=== PATIENT | male | born 1955 | race Caucasian/White ===

== ENCOUNTER → 2018-05-19 01:42 | Outpatient (CLI) | payer MEDICARE, SELFPAY ==
[2018-05-19 11:13] LABS: Hemoglobin A1C 8.6 % (4.5-6.2)
[2018-05-19 11:19] LABS: ALT 32 U/L (12-78); AST 22 U/L (15-37); Albumin 3.6 g/dL (3.4-5.0); Alkaline Phosphatase 127 U/L (46-116); Anion Gap 7.5 mmol/L (3-11); BUN 40 mg/dL (7-18); Bilirubin, Total 0.5 mg/dL (0.2-1.0); CO2 26.5 mmol/L (21.0-32.0); CREATININE 1.57 mg/dL (0.70-1.30); Chloride 103 mmol/L (98-107); Cholesterol 113 mg/dL (50-200); Estimated GFR 44.99 (mL/min/1.73m2); Glucose 138 mg/dL (70-100); HDL Cholesterol 43 mg/dL (40-60); LDL CHOLESTEROL 59 mg/dL (<100); Potassium 4.7 mmol/L (3.5-5.1); Sodium 137 mmol/L (136-145); Total Protein 6.7 g/dL (6.4-8.2); Triglyceride 73 mg/dL (30-150)
[2018-05-19 11:54] LABS: COMMENT (LAB VIEW ONLY) 81.27 mg/dL; Microalb ug/mg Crea 260.7 ug/mg Cr
== END ==
PROVIDERS: PCP Family Medicine; Visit Provider Family Medicine
DX: E11.49 Type 2 diabetes mellitus with other diabetic neurological complication (principal); E78.5 Hyperlipidemia, unspecified; I10 Essential (primary) hypertension; E87.5 Hyperkalemia
CPT/HCPCS: 36415; 80053; 80061; 83721; 82043; 82570; 83036

== ENCOUNTER → 2018-08-11 09:37 | Outpatient (BNVA) | payer MEDICARE, SELFPAY | PROVIDERS: PCP Family Medicine; Visit Provider Student in an Organized Health Care Education/Training Program | DX: I25.810 Atherosclerosis of coronary artery bypass graft(s) without angina pectoris (principal); I10 Essential (primary) hypertension; E11.9 Type 2 diabetes mellitus without complications; Z95.818 Presence of other cardiac implants and grafts | CPT/HCPCS: 99213 ==

== ENCOUNTER 2018-12-21 07:12 | Outpatient (CLI) | payer MEDICARE, SELFPAY ==
[2018-12-21 11:37] LABS: BUN 30 mg/dL (7-18); CREATININE 1.33 mg/dL (0.70-1.30); Calcium 9.2 mg/dL (8.5-10.1); Chloride 105 mmol/L (98-107); Estimated GFR 54.48 (mL/min/1.73m2); Glucose 53 mg/dL (70-100); Potassium 4.1 mmol/L (3.5-5.1); Sodium 143 mmol/L (136-145)
== END 2018-12-21 07:32 ==
PROVIDERS: PCP Family Medicine; Visit Provider Family Medicine
DX: E11.8 Type 2 diabetes mellitus with unspecified complications (principal); I10 Essential (primary) hypertension; Z79.4 Long term (current) use of insulin
CPT/HCPCS: 36415; 80048; 82043; 82570; 83036

== ENCOUNTER 2018-12-22 08:44 | Outpatient (REF) | payer MEDICARE, SELFPAY ==
[2018-12-22 12:07] LABS: COMMENT (LAB VIEW ONLY) 70.68 mg/dL; Microalb ug/mg Crea 697.5 ug/mg Cr
== END 2018-12-22 09:04 ==
LOC: LBN 08:44
PROVIDERS: PCP Family Medicine; Visit Provider Family Medicine
DX: E11.9 Type 2 diabetes mellitus without complications (principal)
CPT/HCPCS: 82043; 82570

== ENCOUNTER 2019-05-15 16:00 | Observation (INO) | payer MEDICARE, SELFPAY ==
[2019-05-15] VITALS (45 sets, daily range): BP systolic 159–204; BP diastolic 81–108; PULSE 62–87; RESP 9–24; TEMP 36.6–36.8; O2SAT 93–98
--- NOTE | 2019-05-15 16:25 | DI.RAD_ITS ---
SYMPTOM/DIAGNOSIS: SHORTNESS OF BREATH. PA AND LATERAL CHEST: 05/15 Note is made of prior sternotomy. Cardiac size is within normal limits. Lungs are clear. No pleural effusion. CONCLUSION: No evidence of acute disease.
[2019-05-15 16:41] LABS: Abs Immature Grans 0.01 k/cumm (0.0-0.09); Absolute Basophil Count 0.02 k/cumm (0.0-0.2); Absolute Eosinophil Count 0.26 k/cumm (0.0-0.7); Absolute Lymphocyte Count 1.34 k/cumm (1.2-3.4); Absolute Monocyte Count 0.88 k/cumm (0.11-0.7); Absolute Neutrophil Count 7.67 k/cumm (1.2-6.7); Basophils % 0.2; Eosinophils % 2.6; HCT 40.5 % (40.0-50.0); HGB 14.6 g/dL (13.5-17.5); Immature Grans % 0.1; Lymphocytes % 13.2; Mean Corpuscular Hemoglobin 29.6 pg (27.0-33.0); Mean Corpuscular Volume 82.2 fL (80-95); Mean Platelet Volume 11.6 fL (8.0-11.0); Monocytes % 8.6; Neutrophils % 75.3; Platelet Count 177 x1000/uL (130-400); RBC 4.93 m/cumm (4.50-6.00); RBC Distribution Width 13.6 % (11.8-14.1); White Blood Cell Count 10.18 k/cumm (4.4-10.8)
[2019-05-15] MEDS: Furosemide 40 MG/4 ML VIAL IVP (16:55)
[2019-05-15 17:03] LABS: ALT 24 U/L (12-78); AST 13 U/L (15-37); Alkaline Phosphatase 108 U/L (46-116); BUN 23 mg/dL (7-18); Bilirubin, Total 0.7 mg/dL (0.2-1.0); Calcium 10.1 mg/dL (8.5-10.1); Chloride 96 mmol/L (98-107); Estimated GFR 55.75 (mL/min/1.73m2); Glucose 249 mg/dL (70-100); Magnesium 1.4 mg/dL (1.8-2.4); NT-proBNP 1156 pg/mL; Potassium 4.3 mmol/L (3.5-5.1); Sodium 134 mmol/L (136-145); Troponin I < 0.05 ng/mL (0.00-0.06)
[2019-05-15 17:16] LABS: D-Dimer 832 ng/mlFEU (<500)
--- NOTE | 2019-05-15 17:32 | DI.CT_ITS ---
SYMPTOM/DIAGNOSIS: ABDOMINAL PAIN AND BLOATING CT ANGIOGRAPHY CHEST, ABDOMEN AND PELVIS: 05/15 CT angiography was performed with multi slice acquisition and multi planar and 3D reconstruction. CT angiography of the chest, abdomen and pelvis was performed with a bolus infusion of 100 cc Omnipaque 350. Note is made of a prior sternotomy and there are coronary artery stents and/or calcifications. Thoracic aorta is of normal diameter with no evidence of dissection. No evidence of pulmonary embolic disease. Calcified pulmonary nodules are noted bilaterally consistent with healed granulomatous disease. The lungs are otherwise clear. No pleural effusion. No mediastinal or hilar adenopathy. Tracheobronchial tree appears intact. Abdominal aorta is of normal diameter. No dissection. Less than 50% luminal diameter SMA origin. Divided origin of the celiac trunk. No significant stenosis. Renal arteries show minimal calcified atheromatous plaque. Calcified atheromatous plaque present in common internal and external iliac arteries bilaterally with no stenosis in excess of 50%. Liver, spleen and pancreas appear normal. There is cholelithiasis without evident biliary dilatation. Appendix is normal. No evidence of diverticulitis or bowel obstruction. No significant abdominal or pelvic adenopathy, Adrenals and kidneys are unremarkable. No urinary tract calcification or obstruction. CONCLUSION: 1. No evidence of pulmonary embolic disease. 2. Extensive atherosclerosis with no stenosis in excess of 50% in the visualized thoracic and abdominal vessels. 3. Cholelithiasis
[2019-05-15] MEDS: Magnesium Oxide 400 MG TAB PO (17:34)
[2019-05-15] MEDS: Omnipaque 350 MG/ML 100 ML BTL IJ (18:27)
--- NOTE | 2019-05-15 18:44 | NUR.NOTE ---
Nursing Note:pt voided x 2 since lasix administration
--- NOTE | 2019-05-15 19:11 | DI.VRAD_ITS ---
EXAM: CT Angiography Chest With Contrast EXAM DATE/TIME: 05/15/2019 5:49 PM CLINICAL HISTORY: 64 years old, male; Shortness of breath; Patient HX: Pain and bloating TECHNIQUE: Imaging protocol: Axial computed tomographic angiography images of the chest with intravenous contrast using CT angiography protocol. Coronal and sagittal reformatted images were created and reviewed. 3D rendering: MIP reconstructed images were created and reviewed. COMPARISON: CT CHEST FOR PULMONARY EMBOLUS 01/11/2018 3:20 PM FINDINGS: Pulmonary arteries: Normal. No pulmonary emboli. Great vessels off aortic arch: Up to 10% stenosis of the origin of the right subclavian artery. Aorta: Mild Aortic and extensive coronary atherosclerosis. Bovine anatomy of the aortic arch. Lungs: Unremarkable. No consolidation. No masses. Pleural space: Unremarkable. No pneumothorax. No pleural effusion. Heart: Unremarkable. No cardiomegaly. No pericardial effusion. Lymph nodes: Unremarkable. No enlarged lymph nodes. Bones/joints: Sternotomy. Mild degenerative changes in the spine. Soft tissues: Unremarkable. IMPRESSION: 1. Mild Aortic and extensive coronary atherosclerosis. 2. Bovine anatomy of the aortic arch. 3. Up to 10% stenosis of the origin of the right subclavian artery. 4. No pulmonary embolism EXAM: CT Angiography Abdomen With Contrast EXAM DATE/TIME: 05/15/2019 5:49 PM CLINICAL HISTORY: 64 years old, male; Shortness of breath; Patient HX: Pain and bloating TECHNIQUE: Imaging protocol: Axial computed tomographic angiography images of the abdomen with intravenous contrast material. Coronal and sagittal reformatted images were created and reviewed. 3D rendering: MIP reconstructed images were created and reviewed. COMPARISON: CT CHEST FOR PULMONARY EMBOLUS 01/11/2018 3:20 PM FINDINGS: VASCULATURE: Aorta: No aortic aneurysm or dissection. Celiac trunk and mesenteric arteries: Up to 50% stenosis at the origin of the superior mesenteric artery. The hepatic artery and splenic artery originate directly from the aorta. Up to 10% stenosis in each of these vessels at their origin. Up to 20% stenosis in the proximal portion of the inferior mesenteric artery. Renal arteries: 2 right renal arteries identified with no stenosis at their origins. Right iliac arteries: Up to 20% stenosis in the proximal right common iliac artery. Up to 10% stenosis in the right internal iliac artery. Up to 10% stenosis in the right external iliac artery. Right femoral/popliteal arteries: Up to 10% stenosis in the right common femoral artery. Up to 20% stenosis in the visualized right deep femoral artery. Left iliac arteries: Up to 10% stenosis in the left internal iliac artery. Up to 10% stenosis in the left external iliac artery. Left femoral/popliteal arteries: Up to 10% stenosis in the left common femoral artery. Up to 20% stenosis in the visualized left deep femoral artery. Other veins: Retroaortic left renal vein. ABDOMEN: Liver: Normal. No mass. Gallbladder and bile ducts: Gallstones without evidence of acute cholecystitis. Pancreas: Normal. No ductal dilation. Spleen: Splenule. Spleen is not enlarged. No splenic masses. Adrenals: Normal. No mass. Kidneys and ureters: Normal. No hydronephrosis. Stomach and bowel: Unremarkable. No obstruction. No mucosal thickening. Intraperitoneal space: Unremarkable. No free air. No significant fluid collection. Bones/joints: Degenerative changes in the spine. Soft tissues: Bilateral inguinal hernias containing fat, uncomplicated. Lymph nodes: Unremarkable. No enlarged lymph nodes. IMPRESSION: 1. Up to 50% stenosis at the origin of the superior mesenteric artery. 2. The hepatic artery and splenic artery originate directly from the aorta. Up to 10% stenosis in each of these vessels at their origin. 3. 2 right renal arteries identified with no stenosis at their origins. 4. Up to 20% stenosis in the proximal portion of the inferior mesenteric artery. 5. No aortic aneurysm or dissection. 6. Up to 20% stenosis in the proximal right common iliac artery. 7. Up to 10% stenosis in the right internal iliac artery. 8. Up to 10% stenosis in the left internal iliac artery. 9. Up to 10% stenosis in the right external iliac artery. 10. Up to 10% stenosis in the left external iliac artery. 11. Up to 10% stenosis in the right common femoral artery. 12. Up to 10% stenosis in the left common femoral artery. 13. Up to 20% stenosis in the visualized right deep femoral artery. 14. Up to 20% stenosis in the visualized left deep femoral artery. A Dictated and Authenticated by: Chris Espinoza MD. Ordering:PANDA Middleton MD
--- NOTE | 2019-05-15 19:53 | ED.GENADUL_ITS ---
Discharge Plan Disposition Patient Disposition: [facility] INPATIENT Condition: Stable Discharge Details Chief Complaint: SOB Clinical Impression: Dyspnea Admit Date/Time: 05/15/19 21:22 Admit Provider: Bert Martinez Attending Provider: Bert Martinez Primary Care Provider: Anya Workman ED Provider: Kane Rowland Discharge Instructions Activity:: OOB to chair Equipment/Supplies:: No Equipment Needed Diet:: Carb Counting Discharge Orders Discharge Orders: Discharge Order (Routine); Ordered 05/16/19 Ordered By: Guevara Campbell Discharge Data Discharge Date/Time-TO BE ENTERED AT DEPARTURE: 05/15/19 22:27 Medical Decision Making Patient presenting to the emergency department for chief complaint of shortness of breath while on a trip where he drove to [place]. He was seen in the emergency department had very thorough and appropriate work-up and was found to have volume overload. Patient was placed on Lasix and reports that this helped for the first 2 days but since he has had significant dyspnea on exertion, and significant dyspnea when lying flat. This is caused him to have to sleep in a chair due to significant discomfort. Patient has medical history of diabetes, TIA, bypass surgery hypertension. Physical exam shows no pedal edema, clear lung sounds, normal cardiac exam, no JVD. Plan to check labs, EKG, and chest x- ray. Given the patient already had CTA in [place] but continues to claim symptoms plan to repeat d-dimer for concern of possible PE. Pending results patient given 40 mg IV Lasix EKG reviewed with attending physician and shows rate of 64, right bundle branch, no STEMI, no acute change compared to EKG dated 04/10/2018 Review of labs show a negative initial troponin, unremarkable CBC, CMP with decreased sodium and chloride and increase renal function, elevated d-dimer, negative chest x-ray. Given elevated d-dimer and patient's symptoms which she also does state some abdominal discomfort and bloating plan to do CTA of both the chest and abdomen pelvis. CTA was reviewed and shows areas of arterial stenosis but no PE, no dissection, no aneurysm. Patient reassessed and states some improvement of symptoms but not full improvement. Second troponin reviewed and is negative but now shows 0.05. Repeat EKG reviewed with attending physician and shows sinus rhythm, rate of 71, right bundle branch, no significant change compared to previous EKG. patient again reassessed and remains pain-free and again mild improvement but states that he feels significantly uncomfortable about going home. Given that this is patient's second visit to emergency department for similar symptoms with minimal to no benefit after trialing outpatient Lasix I do feel that patient should be admitted for stress and echo testing given significant history. Patient is agreeable to this plan. Called and spoke with Dr. Concepcion and had patient admitted HPI General Mode of arrival: ambulatory . Date/Time Provider Initiated Documentation: 05/15/19 16:23 . Limitations to Documentation: no limitations . Information obtained by: patient, family and RN notes reviewed . History of Present Illness 64 year old M presents to the emergency department with the chief complaint of Shortness of breath, described as moderate and similar to prior episodes, Quality is described as other (denies pain), Patient started experiencing this day(s) (10) and it has been constant. Medication improves symptom(s), (mild from lasix) Patient notes no other symptoms.. Patient did receive the following treatments prior to arrival, none Related Data Home Medications Medication Instructions Recorded Confirmed Aspirin 81 mg PO DAILY tab-cap 12/09/12 05/15/19 OneTouch Ultra Test #100 strip 11/14/13 04/06/19 BD Insulin Syringe #3 box 10/14/16 04/06/19 chlorthalidone 25 mg PO DAILY #30 tab-cap 09/15/17 05/15/19 Loratadine 10 mg PO DAILY 01/11/18 05/15/19 Aerochamber Plus Flow-Vu #1 unit 03/15/18 04/06/19 enalapril maleate 20 mg PO DAILY #90 tab-cap 05/20/18 05/15/19 FreeStyle Lite Strips #400 strip 05/21/18 04/06/19 blood-glucose meter [FreeStyle #1 kit 05/21/18 04/06/19 Lite Meter] insulin aspart U-100 100 unit/mL 25 unit SUB-Q AC #24 ml 07/14/18 05/15/19 (3 mL) subcutaneous pen rosuvastatin 40 mg tablet 40 mg PO DAILY #90 tab-cap 08/06/18 05/15/19 carvedilol 12.5 mg tablet See Rx Instructions PO BID tab-cap 08/25/18 05/15/19 triamcinolone acetonide 0.5 % 1 applic TOPICAL BID #1 gm 08/25/18 04/06/19 topical ointment pregabalin 150 mg capsule 150 mg PO TID PRN #90 cap 10/25/18 05/15/19 needle (disp) 21 G 21 gauge x 1 #100 each 12/22/18 04/06/19 1/2 insulin glargine 100 unit/mL (3 80 unit SUBCUT HS #30 pen 03/15/19 05/15/19 mL) subcutaneous pen meloxicam 15 mg tablet 15 mg PO DAILY PRN #90 tab 04/07/19 05/15/19 ranitidine HCl 300 mg tablet 300 mg PO DAILY #30 tab 04/07/19 05/15/19 hydrocodone 7.5 mg-acetaminophen 1 tab PO BID PRN #60 tab MDD 2 tabs 04/20/19 05/15/19 325 mg tablet Previous Rx's Medication Instructions Recorded chlorthalidone 25 mg PO DAILY #30 tab-cap 09/15/17 Aerochamber Plus Flow-Vu #1 unit 03/15/18 enalapril maleate 20 mg PO DAILY #90 tab-cap 05/20/18 FreeStyle Lite Strips #400 strip 05/21/18 blood-glucose meter [FreeStyle #1 kit 05/21/18 Lite Meter] insulin aspart U-100 100 unit/mL 25 unit SUB-Q AC #24 ml 07/14/18 (3 mL) subcutaneous pen rosuvastatin 40 mg tablet 40 mg PO DAILY #90 tab-cap 08/06/18 triamcinolone acetonide 0.5 % 1 applic TOPICAL BID #1 gm 08/25/18 topical ointment pregabalin 150 mg capsule 150 mg PO TID PRN #90 cap 10/25/18 needle (disp) 21 G 21 gauge x 1 #100 each 12/22/18 1/2 insulin glargine 100 unit/mL (3 80 unit SUBCUT HS #30 pen 03/15/19 mL) subcutaneous pen meloxicam 15 mg tablet 15 mg PO DAILY PRN #90 tab 04/07/19 ranitidine HCl 300 mg tablet 300 mg PO DAILY #30 tab 04/07/19 hydrocodone 7.5 mg-acetaminophen 1 tab PO BID PRN #60 tab MDD 2 tabs 04/20/19 325 mg tablet Allergies Allergy/AdvReac Type Severity Reaction Status Date / Time cephalexin monohydrate Allergy Severe SOB Unverified 05/15/19 21:22 [From Keflex] Penicillins Allergy Unknown Unverified 05/15/19 21:22 General Stated Complaint: SOB MIRIAM: 3 Review of Systems Constitutional Denies chills, Denies fever(s) and Denies malaise Cardiovascular Reports as per HPI, Denies chest pain, Denies chest pain with activity, Denies syncope, Denies irregular heart rhythm, Reports leg edema, Denies palpitations, Reports dyspnea, Reports dyspnea on exertion and Reports paroxysmal nocturnal dyspnea Respiratory Denies cough, Denies hemoptysis, Reports dyspnea and Reports dyspnea on exertion Gastrointestinal Reports abdominal pain, Denies nausea and Denies vomiting Neurologic Denies syncope Psychiatric Denies anxiety Endocrine Denies palpitations [facility] Medical History Chronic pain syndrome (Chronic) Coronary artery disease involving [place] coronary artery of [place] heart with unstable angina pectoris (Chronic 08/30/17) Diabetic foot ulcer (Resolved) Diabetic peripheral angiopathy (Chronic) Diabetic peripheral neuropathy (Chronic) DM (diabetes mellitus) Dyspnea on exertion (Chronic 12/16/13) 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 (Acute) Hypertension (Chronic) Laceration of lower leg with foreign body (Resolved) Lymphedema (Inactive) Obesity Proliferative diabetic retinopathy 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 Father Diabetes Myocardial infarction Heart disease Sister Diabetes Social History Smoking/Tobacco Use Status: Former Tobacco Use Alcohol Intake: never Drug use: Never Substance use type: does not use Do you feel safe in your relationship?: Yes Exam Const General: cooperative, healthy appearing, comfortable, no acute distress, not diaphoretic and not ill appearing Nutritional Appearance: average body habitus Orientation: alert, awake and oriented x3 Limitations: mental status not altered Neck Neck: normal visual inspection, full ROM, trachea midline, supple and no anterior neck swelling Thyroid: thyroid normal Carotids: normal carotid upstroke and no bruits Chest Chest: normal inspection of the chest Resp Effort & Inspection: normal respiratory effort and able to speak in complete sentences Auscultation: clear to auscultation bilaterally Cardio Jugular venous pressure: no JVD Palpation: normal PMI Rate: regular rate Rhythm: regular rhythm Heart Sounds: S1 normal, S2 normal, no click, no gallops, no murmurs and no rubs Bruits: no abdominal aortic bruits and no carotid bruits Pulses: radial pulses present bilaterally 2+ GI Inspection: normal to inspection Palpation: soft, no aortic enlargement, no pulsatile masses and nontender Auscultation: normal bowel sounds Skin General skin exam: no rashes or lesions noted Neuro General: alert, awake, oriented x3, tone normal and moves all extremities Extrem General: no pedal edema and no calf tenderness Course Vital Signs Pulse 67 05/15/19 16:01 Respiratory Rate 17 05/15/19 16:01 Blood Pressure 168/93 H 05/15/19 16:01 Temperature 36.8 C 05/15/19 16:06 Temperature Source Temporal Artery Scan 05/15/19 16:06 Pulse 70 05/15/19 18:32 Pulse 70 05/15/19 18:50 Respiratory Rate 11 L 05/15/19 18:50 Respiratory Effort 05/15/19 16:35 Respiratory Depth Normal 05/15/19 16:34 Respiratory Pattern Normal 05/15/19 16:34 Blood Pressure 159/81 H 05/15/19 18:32 Blood Pressure Mean 99 05/15/19 18:32 Blood Pressure Position Supine 05/15/19 16:06 Pulse Oximetry 97 05/15/19 18:50 Oxygen Delivery Method Room Air 05/15/19 16:06 Oxygen Flow Rate 0 05/15/19 16:06 Lab/Test Results Lab/Test Results: Laboratory Tests Range/Units 05/15/19 05/15/19 05/15/19 16:30 16:31 16:31 WBC (4.4-10.8) k/cumm 10.18 RBC (4.50-6.00) m/cumm 4.93 Hgb (13.5-17.5) g/dL 14.6 Hct (40.0-50.0) % 40.5 MCV (80-95) fL 82.2 MCH (27.0-33.0) pg 29.6 MCHC (32.0-36.0) g/dL 36.0 RDW (11.8-14.1) % 13.6 Plt Count (130-400) x1000/uL 177 MPV (8.0-11.0) fL 11.6 H Immature Gran % 0.1 Neutrophils % 75.3 Lymphocytes % 13.2 Monocytes % 8.6 Eosinophils % 2.6 Basophils % 0.2 Absolute Neutrophils (1.2-6.7) k/cumm 7.67 H Absolute Lymphocytes (1.2-3.4) k/cumm 1.34 Absolute Monocytes (0.11-0.7) k/cumm 0.88 H Absolute Eosinophils (0.0-0.7) k/cumm 0.26 Absolute Basophils (0.0-0.2) k/cumm 0.02 D-Dimer (<500) ng/mlFEU 832 H Sodium (136-145) mmol/L 134 L Potassium (3.5-5.1) mmol/L 4.3 Chloride (98-107) mmol/L 96 L Carbon Dioxide (21.0-32.0) mmol/L 31.0 Anion Gap (3-11) mmol/L 7.0 BUN (7-18) mg/dL 23 H Creatinine (0.70-1.30) mg/dL 1.30 Estimated GFR/1.73 m2 (mL/min/1.73m2) 55.75 Glucose (70-100) mg/dL 249 H Calcium (8.5-10.1) mg/dL 10.1 Magnesium (1.8-2.4) mg/dL 1.4 L Total Bilirubin (0.2-1.0) mg/dL 0.7 AST (15-37) U/L 13 L ALT (12-78) U/L 24 Alkaline Phosphatase (46-116) U/L 108 Troponin I (0.00-0.06) ng/mL < 0.05 NT-Pro-B Natriuret Pep ( - 299) pg/mL Total Protein (6.4-8.2) g/dL 8.0 Albumin (3.4-5.0) g/dL 4.0 Range/Units 05/15/ 16:31 WBC (4.4-10.8) k/cumm RBC (4.50-6.00) m/cumm Hgb (13.5-17.5) g/dL Hct (40.0-50.0) % MCV (80-95) fL MCH (27.0-33.0) pg MCHC (32.0-36.0) g/dL RDW (11.8-14.1) % Plt Count (130-400) x1000/uL MPV (8.0-11.0) fL Immature Gran % Neutrophils % Lymphocytes % Monocytes % Eosinophils % Basophils % Absolute Neutrophils (1.2-6.7) k/cumm Absolute Lymphocytes (1.2-3.4) k/cumm Absolute Monocytes (0.11-0.7) k/cumm Absolute Eosinophils (0.0-0.7) k/cumm Absolute Basophils (0.0-0.2) k/cumm D-Dimer (<500) ng/mlFEU Sodium (136-145) mmol/L Potassium (3.5-5.1) mmol/L Chloride (98-107) mmol/L Carbon Dioxide (21.0-32.0) mmol/L Anion Gap (3-11) mmol/L BUN (7-18) mg/dL Creatinine (0.70-1.30) mg/dL Estimated GFR/1.73 m2 (mL/min/1.73m2) Glucose (70-100) mg/dL Calcium (8.5-10.1) mg/dL Magnesium (1.8-2.4) mg/dL Total Bilirubin (0.2-1.0) mg/dL AST (15-37) U/L ALT (12-78) U/L Alkaline Phosphatase (46-116) U/L Troponin I (0.00-0.06) ng/mL NT-Pro-B Natriuret Pep ( - 299) pg/mL 1156 H Total Protein (6.4-8.2) g/dL Albumin (3.4-5.0) g/dL
[2019-05-15 20:01] LABS: Troponin I 0.05 ng/mL (0.00-0.06)
--- NOTE | 2019-05-15 20:08 | DI.VRAD_ITS ---
EXAM: XR Chest, 2 Views EXAM DATE/TIME: 05/15/2019 4:26 PM CLINICAL HISTORY: 64 years old, male; Shortness of breath TECHNIQUE: Imaging protocol: XR of the chest, 2 views. COMPARISON: CR CHEST 2 VIEWS PA,LAT 01/11/2018 2:28 PM FINDINGS: Lungs: Unremarkable. No consolidation. Pleural space: Unremarkable. No pleural effusion. No pneumothorax. Heart/Mediastinum: Unremarkable. No cardiomegaly. Bones/joints: Sternotomy. IMPRESSION: No acute finding. Dictated and Authenticated by: Chris Espinoza MD. Ordering:PANDA Middleton MD
[2019-05-15] MEDS: Insulin REGULAR-Human 100 UNITS/ML UNIT 10 UNITS SC (21:20)
[2019-05-15] MEDS: Carvedilol 12.5 MG TAB PO (23:07)
[2019-05-15] MEDS: Insulin Glargine 300 UNITS/3 ML PEN 80 UNITS SC (23:09)
[2019-05-15] MEDS: Insulin Aspart 300 UNITS/3 ML PEN SC (23:11)
[2019-05-15] MEDS: Normal Saline Flush 10 ML SYR IVP (23:12)
--- NOTE | 2019-05-15 23:48 | HPE_ITS ---
Date of service: 05/15/19 Time of Service: 23:48 Assessment and Plan (1) Dyspnea on exertion: Current visit: No Status: Chronic Despite no acute findings on his CT chest and CXR his elevated BNP suggests CHF (along w/ his sx of GIBSON, orthopnea, pedal edema). He may be having ischemic equivalent and exhibiting dyspnea rather than chest pain. If all his troponins are negative then he ought to have Lexiscan. Will get an echocardiogram in the a.m. and consult with his finance teacher, Dr. Bahena (2) Type II diabetes mellitus with neurological manifestations: Current visit: No Status: Chronic continue his home diabetic meds and add novolog carb coverage and sliding scale for coverage of elevated glucose readings. (3) Coronary artery disease involving [place] coronary artery of [place] heart with unstable angina pectoris: Current visit: No Status: Chronic work up as listed above (4) Hypertension: Current visit: No Status: Chronic poor BP control, his dyspnea may be due to poorly controlled HTN. I will reorder his home meds but adjust his carvedilol to try for better bp control. Qualifiers: Hypertension type: essential hypertension Qualified Code(s): I10 - Essential (primary) hypertension (5) Hyperlipidemia: Current visit: No Status: Chronic continue his atorvastatin. will get fasting lipid to assess his control. Qualifiers: Hyperlipidemia type: unspecified Qualified Code(s): E78.5 - Hyperlipidemia, unspecified History of Present Illness Chief Complaint: short of breath Narrative: 64 yr old male w/ PMH of CAD s/p 3 vessel [place]. 1 [place]/2[place] [facility] [place] type 2 on insulin complicated by retinopathy, HTN who presents to the ER w/ c/o of dyspnea on exertion and at rest, orthopnea but no chest pain/pressure just a feeling like he can not take a deep enough breath. He recently drove to [place] w/ his to visit her family. While there he developed dyspnea and thought that this might be high altitude sickness as his symptoms were similar to those he experienced about 10 yrs ago. He went to local ER in [place], [place] where they did EKG, labs, CXR and CT chest. He was told that he had too much fluid and was given lasix. He drove back to [place] but has had persistent symptoms of dyspnea on exertion and now even at rest. He has to sleep sitting up in chair. He also has had pedal edema. In the ER he was evaluated by Kane Rowland NP, who performed CXR, CTA of his chest, abdomen and pelvis, EKG, and labs. EKG demonstrated NSR @ 64 bpm w/ chronic RBBB and evidence of old inferior HI, unchanged form prior EKG's dating to Jun 2014. CXR was read as no acute findings (no cardiomegaly and unremarkable lung exam, no pleural effusions, only evidence of sternotomy). CTA demonstrated mild aortic and extensive coronary atherosclerosis and bovine anatomyh of the aortic arch, 10% stenosis of the righ subclavian artery but no P.E. CTA of the abdomen and pelvis demonstrated multiple areas of visceral atherosclerosis including 50% narrowing of the SMA, no JOSAFAT, and no AAA but extensive mild stenosis of his iliacs and femoral arteries. Labs demonstrated normal CBC, elevated d-dimer of 832 (which prompted the CTA), CMP was unremarkable, magnesium was low at 1.4, pro-BNP however was elevated at 1156. He was treated in the ER w/ iv lasix 40 mg with diuresis. However, he says that he still feels dyspneic at times like he can not get enough air although he says that this is improved since the diuretic. He still denies any CP but has had some heart burn feelings which have resolved w/ antacids. He is admitted now to rule out ACS and to evaluate for new onset dyspnea, CHF and to evaluate for coronary ischemic equivalent. he will get echo and possible nuclear stress MPI. Review of Systems Cardiovascular Denies chest pain at rest, Denies chest pain with activity, Denies syncope, Reports pedal edema, Reports dyspnea, Reports dyspnea on exertion and Reports orthopnea Respiratory Denies chest congestion, Denies cough, Reports dyspnea and Reports dyspnea on exertion Gastrointestinal Reports dyspepsia Genitourinary Reports system reviewed and no additional complaints, except as docu Musculoskeletal Reports system reviewed and no additional complaints, except as docu and Reports tingling Integumentary/Breasts Reports system reviewed and no additional complaints, except as docu Neurologic Denies syncope, Reports tingling and Reports paresthesias (chronic diabetic neuropathy in feet) Psychiatric Reports system reviewed and no additional complaints, except as docu Endocrine Reports system reviewed and no additional complaints, except as docu Hematologic/Lymphatic Reports system reviewed and no additional complaints, except as [facility] Allergic/Immunologic Reports system reviewed and no additional complaints, except as [facility] Medical History (Updated 05/16/19 @ 10:08 by Bert Martinez) Chronic pain syndrome (Chronic) Coronary artery disease involving [place] coronary artery of [place] heart with unstable angina pectoris (Chronic 08/30/17) Diabetic foot ulcer (Resolved) Diabetic peripheral angiopathy (Chronic) Diabetic peripheral neuropathy (Chronic) DM (diabetes mellitus) Dyspnea on exertion (Chronic 12/16/13) 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 (Acute) Hypertension (Chronic) Laceration of lower leg with foreign body (Resolved) Lymphedema (Inactive) Obesity Proliferative diabetic retinopathy of both eyes without macular edema associated with diabetes mellitus due to underlying condition (Inactive 01/18/18) Scrotal hematoma (Resolved 07/26/14) Stroke TIA (transient ischemic attack) (Resolved) Type II diabetes mellitus with neurological manifestations (Chronic 09/06/14) Surgical History (Updated 05/16/19 @ 09:18 by Bert Martinez) H/O surgical procedure (Inactive) History of cataract removal with insertion of prosthetic lens (Inactive) History of hydrocelectomy (Inactive 07/24/14) 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 Father Diabetes Myocardial infarction Heart disease Sister Diabetes Social History Smoking/Tobacco Use Status: Former Tobacco Use Alcohol Intake: never Drug use: Never Substance use type: does not use Do you feel safe in your relationship?: Yes Meds Home Medications Medication Instructions Recorded Confirmed Type Aspirin 81 mg PO DAILY tab-cap 12/09/12 05/15/19 History OneTouch Ultra Test #100 strip 11/14/13 04/06/19 History BD Insulin Syringe #3 box 10/14/16 04/06/19 History chlorthalidone 25 mg PO DAILY #30 tab-cap 09/15/17 05/15/19 Rx Loratadine 10 mg PO DAILY 01/11/18 05/15/19 History inhalational spacing device #1 unit 03/15/18 04/06/19 Rx [Aerochamber Plus Flow-Vu] enalapril maleate 20 mg PO DAILY #90 tab-cap 05/20/18 05/15/19 Rx blood sugar diagnostic [Freestyle #400 strip 05/21/18 04/06/19 Rx Lite Test Strips] blood-glucose meter [Freestyle #1 kit 05/21/18 04/06/19 Rx Lite Meter] insulin aspart U-100 100 unit/mL 25 unit SUB-Q AC #24 ml 07/14/18 05/15/19 Rx (3 mL) subcutaneous pen rosuvastatin 40 mg tablet 40 mg PO DAILY #90 tab-cap 08/06/18 05/15/19 Rx carvedilol 12.5 mg tablet See Rx Instructions PO BID tab-cap 08/25/18 05/15/19 History triamcinolone acetonide 0.5 % 1 applic TOPICAL BID #1 gm 08/25/18 04/06/19 Rx topical ointment pregabalin 150 mg capsule 150 mg PO TID PRN #90 cap 10/25/18 05/15/19 Rx needle (disp) 21 G 21 gauge x 1 #100 each 12/22/18 04/06/19 Rx 1/2 insulin glargine 100 unit/mL (3 80 unit SUBCUT HS #30 pen 03/15/19 05/15/19 Rx mL) subcutaneous pen meloxicam 15 mg tablet 15 mg PO DAILY PRN #90 tab 04/07/19 05/15/19 Rx ranitidine HCl 300 mg tablet 300 mg PO DAILY #30 tab 04/07/19 05/15/19 Rx hydrocodone 7.5 mg-acetaminophen 1 tab PO BID PRN #60 tab MDD 2 tabs 04/20/19 05/15/19 Rx 325 mg tablet Allergies Allergy/AdvReac Type Severity Reaction Status Date / Time cephalexin monohydrate Allergy Severe SOB Unverified 05/15/19 21:22 [From Keflex] Penicillins Allergy Unknown Unverified 05/15/19 21:22 Exam Const General: cooperative, no acute distress and well groomed Nutritional Appearance: obese morbidly obese Orientation: alert, awake and oriented x3 HENMT Head: normal to inspection, no palpable skull fracture and normocephalic Mouth: oral mucosae normal, lip normal, tongue normal, oropharynx normal and moist mucous membranes Eyes General: appearance normal, both eyes and all related structures Visual Badillo: normal visual badillo by confrontation Alignment and Position: alignment normal Periorbital: periorbital findings normal Eyelids: eyelids normal Conjunctivae: conjunctivae normal Sclera: sclerae normal Cornea: corneas normal Pupils: PERRL and normal by confrontation EOM: EOM intact bilaterally Direct ophthalmoscopy: normal light reflex Resp Effort & Inspection: normal respiratory effort and able to speak in complete sentences Auscultation: clear to auscultation bilaterally Percussion: percussion normal Cardio Jugular venous pressure: no JVD Palpation: normal PMI Rate: regular rate Rhythm: regular rhythm Heart Sounds: S1 normal, S2 normal, normal, physiologic split S2, no gallops, no murmurs and no rubs Bruits: no abdominal aortic bruits Pulses: posterior tibial pulses present bilaterally 1+ and diminished and dorsalis pedis pulses present bilaterally 1+ and diminished GI Inspection: obesity Palpation: soft, no hepatosplenomegaly and nontender Percussion: normal to percussion Auscultation: normal bowel sounds Skin Rashes: rashes noted ( bronze skin changes c/w stasis dermatitis) bilateral anterior lower leg Nails: yellow and thickened Neuro General: alert, awake, oriented x3, moves all extremities and no focal motor deficits Cranial Nerves: CN's II-XI intact bilaterally Cognition: normal cognition Speech: speech normal Motor: muscle tone normal throughout and no movement abnormalities noted Sensory Exam: lower extremity bilateral light-touch abnormal decreased Extrem General: full ROM, no calf tenderness, amputation noted Toe: left (5th digit) and pedal edema bilaterally (1+ edema) Psych Appearance: grossly normal and well kempt Mental Status: mental status grossly normal Speech and Movement: speech and movement normal Mood: congruent mood Affect: normal affect Attitude: cooperative Thought Process: normal Thought Content: normal Insight: insight good Judgment: judgment good Results Imaging Chest x-ray: report reviewed (CONCLUSION: No evidence of acute disease.) and image reviewed Abdomen CT scan report/results: report reviewed (multivessel atherosclerosis w/ no critical stenosis (worse is up to 50% of SMA)) CT scan - chest: report reviewed (IMPRESSION: 1. Mild Aortic and extensive coronary atherosclerosis. 2. Bovine anatomy of the aortic arch. 3. Up to 10% stenosis of the origin of the right subclavian artery. 4. No pulmonary embolism) Labs : 05/15/19 16:31 05/16/19 06:20 Laboratory Results - last 24 hr 05/15/19 05/15/19 05/15/19 16:30 16:31 16:31 WBC 10.18 RBC 4.93 Hgb 14.6 Hct 40.5 MCV 82.2 MCH 29.6 MCHC 36.0 RDW 13.6 Plt Count 177 MPV 11.6 H Immature Gran % 0.1 Neutrophils % 75.3 Lymphocytes % 13.2 Monocytes % 8.6 Eosinophils % 2.6 Basophils % 0.2 Absolute Neutrophils 7.67 H Absolute Lymphocytes 1.34 Absolute Monocytes 0.88 H Absolute Eosinophils 0.26 Absolute Basophils 0.02 D-Dimer 832 H Sodium 134 L Potassium 4.3 Chloride 96 L Carbon Dioxide 31.0 Anion Gap 7.0 BUN 23 H Creatinine 1.30 Estimated GFR/1.73 m2 55.75 Glucose 249 H Calcium 10.1 Magnesium 1.4 L Total Bilirubin 0.7 AST 13 L ALT 24 Alkaline Phosphatase 108 Troponin I < 0.05 NT-Pro-B Natriuret Pep Total Protein 8.0 Albumin 4.0 05/15/19 05/15/19 16:31 19:30 WBC RBC Hgb Hct MCV MCH MCHC RDW Plt Count MPV Immature Gran % Neutrophils % Lymphocytes % Monocytes % Eosinophils % Basophils % Absolute Neutrophils Absolute Lymphocytes Absolute Monocytes Absolute Eosinophils Absolute Basophils D-Dimer Sodium Potassium Chloride Carbon Dioxide Anion Gap BUN Creatinine Estimated GFR/1.73 m2 Glucose Calcium Magnesium Total Bilirubin AST ALT Alkaline Phosphatase Troponin I 0.05 NT-Pro-B Natriuret Pep 1156 H Total Protein Albumin Last Vital Signs Temp 36.6 C 05/15/19 22:09 Pulse 87 05/15/19 23:25 Resp 17 05/15/19 22:09 BP 181/95 H 05/15/19 22:09 Pulse Ox 96 05/15/19 22:09
[2019-05-16] VITALS (7 sets, daily range): BP systolic 111–173; BP diastolic 71–96; PULSE 63–72; RESP 18–19; TEMP 35.7–36.3; O2SAT 95–98
[2019-05-16] MEDS: Mylanta Suspension 30 ML CUP PO (00:45)
[2019-05-16] MEDS: Furosemide 20 MG/2 ML VIAL IVP (01:56)
[2019-05-16] MEDS: Normal Saline Flush 10 ML SYR IVP (01:57)
[2019-05-16 02:06] LABS: Troponin I 0.05 ng/mL (0.00-0.06)
[2019-05-16 07:31] LABS: Anion Gap 8.3 mmol/L (3-11); BUN 31 mg/dL (7-18); CO2 30.7 mmol/L (21.0-32.0); CREATININE 1.36 mg/dL (0.70-1.30); Calcium 9.8 mg/dL (8.5-10.1); Chloride 94 mmol/L (98-107); Estimated GFR 52.93 (mL/min/1.73m2); Glucose 273 mg/dL (70-100); Magnesium 1.6 mg/dL (1.8-2.4); Potassium 4.4 mmol/L (3.5-5.1); Sodium 133 mmol/L (136-145)
[2019-05-16 07:38] LABS: NT-proBNP 1225 pg/mL
[2019-05-16] MEDS: Insulin Aspart 300 UNITS/3 ML PEN SC ×5 (08:48→17:03)
[2019-05-16] MEDS: Enoxaparin 40 MG/0.4 ML SYR SC (08:50)
--- NOTE | 2019-05-16 09:02 | MERGE_ITS ---
*[facility]* *[facility]* [address] [place] [address] Date of study: 05/16/2019 Transthoracic Echocardiography M-mode, complete 2D, complete spectral Doppler, and color Doppler *STUDY CONCLUSIONS* Summary: 1. Left ventricle: The cavity size was normal. Wall thickness was increased in a pattern of mild LVH. Systolic function was at the lower limits of normal. The estimated ejection fraction was 50-55%. Moderate hypokinesis of the septal myocardium. Diastolic parameters were normal. There was no evidence of elevated ventricular filling pressure by Doppler parameters. 2. Ventricular septum: Septal motion showed paradoxical motion. 3. Mitral valve: There was mild regurgitation. 4. Right ventricle: The cavity size was normal. Wall thickness was normal. Systolic function was normal. 5. Atrial septum: No defect or patent foramen ovale was identified. 6. Pulmonary arteries: Pulmonary systolic pressure was in the range of 20mm Hg to 30mm Hg. 7. Inferior vena cava: The vessel was normal in size. The respirophasic diameter changes were in the normal range (greater than or equal to 50%), consistent with normal central venous pressure. *PATIENT PRESENTATION* Height: 177.8cm (70in ) S/D Pressure: 144 / 87 Weight: 123.8kg (272.4lb ) BSA: 2.53m^2 Test start time: 09:00 AM. Test stop time: 09:45 AM. PERFORMING Unknown PERFORMING [facility] CONSULTING Jesús Martinez ORDERING Jesús Martinez REFERRING Jesús Martinez UI SOFTWARE ENGINEER Marycruz King *PROCEDURE DATA* Procedure information: This study was interpreted by [facility]. Pertinent images and digital data are archived for permanent storage and are available for subsequent review. Comparison was made to the study of 12/11/2015. Study status: Routine. Transthoracic echocardiography. M-mode, complete 2D, complete spectral Doppler, and color Doppler. A Transthoracic Echocardiogram was performed. Scanning was performed from the parasternal, apical, subcostal, and suprasternal notch acoustic windows. Images were obtained using an [id number] SC 2000 cardiac ultrasound machine. Image quality was adequate. Study completion: The patient tolerated the procedure well. History: PMH: Dyspnea, new onset chf *CARDIAC ANATOMY* Left ventricle: The cavity size was normal. Wall thickness was increased in a pattern of mild LVH. Systolic function was at the lower limits of normal. The estimated ejection fraction was 50-55%. Regional wall motion abnormalities: Moderate hypokinesis of the septal myocardium. The tissue Doppler parameters were normal. Diastolic parameters were normal. There was no evidence of elevated ventricular filling pressure by Doppler parameters. Aortic valve: Mildly thickened, mildly calcified leaflets. Doppler: There was no stenosis. There was no regurgitation. VTI ratio of LVOT to aortic valve: 0.66. Valve area (VTI): 1.9cm^2. Indexed valve area (VTI): 0.8cm^2/m^2. Peak velocity ratio of LVOT to aortic valve: 0.78. Valve area (Vmax): 2.3cm^2. Indexed valve area (Vmax): 0.9cm^2/m^2. Mean velocity ratio of LVOT to aortic valve: 0.75. Valve area (Vmean): 2.2cm^2. Indexed valve area (Vmean): 0.9cm^2/m^2. Mean gradient (S): 4.3mm Hg. Peak gradient (S): 8.7mm Hg. Aorta: Aortic root: The aortic root was normal in size. Ascending aorta: The ascending aorta was normal in size. Mitral valve: Mildly thickened leaflets anterior and posterior. Doppler: There was no evidence for stenosis. There was mild regurgitation. Valve area by pressure half-time: 2.5cm^2. Indexed valve area by pressure half-time: 1cm^2/m^2. Left atrium: The atrium was normal in size. Atrial septum: No defect or patent foramen ovale was identified. Right ventricle: The cavity size was normal. Wall thickness was normal. Systolic function was normal. Ventricular septum: Septal motion showed paradoxical motion. Pulmonic valve: Doppler: There was no evidence for stenosis. There was no significant regurgitation. Peak gradient (S): 5.6mm Hg. Tricuspid valve: Doppler: There was mild regurgitation. Pulmonary artery: Poorly visualized. Pulmonary systolic pressure was in the range of 20mm Hg to 30mm Hg. Right atrium: The atrium was normal in size. Pericardium: There was no pericardial effusion. Systemic veins: Inferior vena cava: The vessel was normal in size. The respirophasic diameter changes were in the normal range (greater than or equal to 50%), consistent with normal central venous pressure. Measurements Left ventricle Value Reference LV ID, ED, PLAX 5.4 cm 3.5 - 6.0 LV ID, ES, PLAX 3.9 cm 2.1 - 4.0 LV PW thickness, ED, PLAX 1.2 cm LV end-diastolic volume, 1-p A2C 132 ml LV ejection fraction, 1-p A2C 64 % LV end-diastolic volume, 1-p A4C 134 ml LV ejection fraction, 1-p A4C 50 % LV e', lateral 0.07 m/sec LV E/e', lateral 10 LV e', medial 0.059 m/sec LV E/e', medial 12 LV e', average 0.064 m/sec LV E/e', average 11 Ventricular septum Value Reference IVS thickness, ED, PLAX 1.2 cm LVOT Value Reference LVOT ID, A-P 1.9 cm LVOT area 2.9 cm^2 LVOT peak velocity, S 1.15 m/sec LVOT mean velocity, S 0.73 m/sec LVOT VTI, S 21.7 cm LVOT peak gradient, S 5.3 mm Hg LVOT mean gradient, S 2.5 mm Hg Stroke volume (SV), LVOT DP 63 ml Stroke index (SV/bsa), LVOT DP 25 ml/m^2 Aortic valve Value Reference Aortic valve peak velocity, S 1.5 m/sec Aortic valve mean velocity, S 1 m/sec Aortic valve VTI, S 33.0 cm Aortic mean gradient, S 4.3 mm Hg Aortic peak gradient, S 8.7 mm Hg VTI ratio, LVOT/AV 0.66 Aortic valve area, VTI 1.9 cm^2 Velocity ratio, peak, LVOT/AV 0.78 Aortic valve area, peak velocity 2.3 cm^2 Velocity ratio, mean, LVOT/AV 0.75 Aortic valve area, mean velocity 2.2 cm^2 Aortic valve area/bsa, mean velocity 0.9 cm^2/m^2 Aorta Value Reference Aortic root ID, ED 3.5 cm Ascending aorta ID, A-P, S 3.3 cm Left atrium Value Reference LA ID, A-P, ES 5.0 cm LA ID/bsa, A-P 2.0 cm/m^2 <=2.2 LA volume, ES, 2-p 58 ml LA volume/bsa, ES, 2-p 23 ml/m^2 LA/aortic root ratio 1.44 Mitral valve Value Reference Mitral E-wave peak velocity 0.69 m/sec Mitral A-wave peak velocity 0.87 m/sec Mitral deceleration time (H) 307 ms 150 - 230 Mitral pressure half-time 89 ms Mitral E/A ratio, peak 0.79 Mitral valve area, PHT, DP 2.5 cm^2 Tricuspid valve Value Reference Tricuspid regurg peak velocity 2.3 m/sec Tricuspid peak RV-RA gradient 22 mm Hg Right atrium Value Reference RA area, ES, A4C 17.1 cm^2 8.3 - 19.5 Pulmonic valve Value Reference Pulmonic peak gradient, S 5.6 mm Hg Legend: (L) and (H) ho values outside specified reference range. I have personally reviewed the images and have reviewed and edited the reported findings. Electronically signed by Slick Bay MD 05/16/2019 10:42
--- NOTE | 2019-05-16 09:15 | MERGEMPI_ITS ---
*[facility]* *[facility]* [address] [place] [address] Myocardial Perfusion Imaging - SPECT Farshad protocol Date of study: 05/16/2019 *PATIENT PRESENTATION* Height: 177.8cm (70in) Blood Pressure: Weight: 124.1kg (273lb) BSA: 2.53m^2 Referring physician: Slick Bay MD Ordering physician: Guevara Campbell Impressions: Abnormal study after maximal exercise. Summary: 1. Myocardial perfusion imaging: This suggests moderate and ischemia in the distribution of the left circumflex coronary artery. 2. The calculated left ventricular ejection fraction after stress: 48%. LV global systolic function is mildly reduced. There is severe hypokinesis involving the septal wall(s) of the left ventricle. 3. Stress ECG conclusions: Taylor treadmill score: 6. This score predicts a low risk of cardiac events. Indication: R06.02. History: REASON FOR TESTING: SOB X 1 WEEK WITH UPPER ABDOMEN PAIN. NO RADIATION OF PAIN. PMH: S/P CABG X 3 08/2017. ANIGNA, OBESITY, IDDM, HYPERTENSION, HYPERLIPIDEMIA, FAMILY HX: FATHER- OF [place]. HYPERTENSION IN FATHER, MOTHER, AND SIBLINGS. CVA IN FATHER. SMOKING: QUIT 40 YEARS AGO EXCERCISE: [place], HELPS OUT IN [employer]. Risk factors: Family history of coronary artery disease. Hypertension. Obesity. Dyslipidemia. Cholesterol: 117mg/dl. HDL: 43mg/dl. LDL: 59mg/dl. Triglycerides: 73mg/dl. ALLERGIES: PENICILLIN, CEPHALEXIN, MEDICATIONS: ASPIRIN 81 MG DAILY, BASAGLAR KWIK-PEN 80 UNITS SC HS, CARVEDILOL 0.5 MG AM NAD 1 MG PM BID, CHLORTHALIDONE 25 MG DAILY, ENALAPRIL MALEATE 20 MG DAILY, HYDROCODONE- ACETAMINOPHEN 1 TAB BID PRN, LORATADINE 10 MG DAILY, LYRICA 150 MG TID PRN, MELOXICAM 10 MG DAILY PRN, NOVALOG FLEXPEN 25 UNITS BEFORE MEALS, RANITIDINE HCL 300 MG DAILY, ROSUVASTATIN 40 MG DAILY, TRIAMCINOLONE ACETONIDE TOPICAL BID. Imaging Technique: Protocol: Farshad protocol. Acquisition: Gated SPECT; 1 day - rest/stress. The patient was imaged in the supine position. Attenuation correction used. Isotope administration: - Rest. Tc[99m]-sestamibi. Dose: 15.2mCi. Injection time: 09:00 AM. Injection to stress time: 00:45. - Stress. Tc[99m]-sestamibi. Dose: 44.8mCi. Injection time: 11:25 AM. 1-2 min before end of exercise Baseline ECG: LAST EKG 05/15/19- SINUS RHYTHM, RBBB. HR 71. TODAY'S EKG SINUS RHYTHM, RBBB. Stress protocol: +--------+--+ + + !Stage !HR!BP (mmHg) !Comments ! +--------+--+ + + !Baseline!69!176/94 (121)! ! +--------+--+ + + !1 min !74!160/52 (88) !Inject Regadenoson.! +--------+--+ + + !2 min !59! ! ! +--------+--+ + + !3 min !78!124/90 (101)! ! +--------+--+ + + !6 min !76!168/80 (109)! ! +--------+--+ + + * Stress results: The rate-pressure product for the peak heart rate and blood pressure was 32835gr Hg/min. Stress ECG: LEXISCAN TESTING ENDED IN 6 MINUTES THE EFFECT OF MEDICATION IS NO LONGER PRESENT. MAX HR WAS 81, WITH A NORMAL BLOOD PRESSURE RESPONSE. PT DID VOMIT AT THE END OF 1 MIN OF RECOVERY WITH A DECREASE IN HR TO 59 AND DROP IN BP, WELL. ECTOPY: NONE SEEN. ANGINA: NO REPORTED CHEST PAIN OR PRESSURE. ISCHEMIA: NO ISCHEMIC CHANGES NOTED. Taylor treadmill score: 6. This score predicts a low risk of cardiac events. Myocardial perfusion: Imaging information: gated. Moderate size, moderate intensity inferolateral defect. Defect is predominantly fixed basally, predominantly transient apically. This suggests moderate and ischemia in the distribution of the left circumflex coronary artery. Ventricular Function (Wall Motion): The calculated left ventricular ejection fraction after stress: 48%. LV global systolic function is mildly reduced. There is severe hypokinesis involving the septal wall(s) of the left ventricle. Study data: Slick Bay MD supervised and was readily available during the procedure. This study was interpreted by [facility]. Study status: Routine. Consent: The risks, benefits, and alternatives to the procedure were explained to the patient and informed consent was obtained. Procedure: Initial setup. A baseline ECG was recorded. Surface ECG leads and manual cuff blood pressure measurements were monitored. Heart sounds: Normal. Lung sounds: Normal. Treadmill exercise testing was performed using the Farshad protocol. Study completion: All catheters inserted during the procedure were removed. The patient tolerated the procedure well and was discharged from the lab. Discharge: The patient left the laboratory in stable condition. Birthdate: Patient birthdate: 1955. Sex: Gender: male. Study date: Study date: 05/16/2019. Study time: 00:01 AM. Electronically signed by Slick Bay MD 05/16/2019 17:37
--- NOTE | 2019-05-16 11:02 | PDOC.CMIN ---
Care Management Initial Assess REASON FOR HOSPITALIZATION:: dyspnea on exertion PAST MEDICAL HISTORY/PAST SURGICAL HISTORY:: Medical: DM2 with neurological manifestations, chronic LB pain syndrome, CAD with unstable angina, H/O diabetic foot ulcer, dyspnea on exertion, H/O complete ray amputation L fifth toe, HTN, laceration lower leg with foreign body, lymphedema, obesity, diabetic retinopathy, scrotal hematoma, H/O CVA, H/O TIA. Surgical: cataract removal with IOL, hydrocelectomy, s/p CABG x3, H/O 5th toe amputation. PREVIOUS FUNCTIONAL STATUS/SOCIAL/FAMILY SUPPORTS:: He is 64 yo man who lives with his Rocío in their home in [place]. They have 5 adult children (blended his and hers), two of whom live locally. He is disaabled due to chronic back pain but used to work in a [employer]. He and his rely heavily on friends and family to help with tasks around the home like getting firewood. 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 He states he is usually active and independent with ADL's and still drives. CURRENT FUNCTIONAL STATUS:: He is sitting up on edge of bed when CM enters. He was able to converse with CM re plans. ADVANCE DIRECTIVES:: Does not have document-declines information. Has patient been provided with information about the portal?: Yes Did the patient sign up for the portal?: No CODE STATUS:: Full Code INSURANCE COVERAGE / FINANCIAL ISSUES:: Medicare CURRENT HOME/COMMUNITY SERVICES/EQUIPMENT:: No services used. There is seat-lift chair in home that was his mother's, that he uses at times. PRIMARY CARE PHYSICIAN:: Anya Workman MD POTENTIAL DISCHARGE NEEDS:: Will need follow-up with PCP as directed. PATIENT/FAMILY EDUCATION NEEDS:: Review d/c instructions re meds and activity levels, as well as Ask me Now questions. ANTICIPATED BARRIERS TO DISCHARGE:: none identified TRANSPORTATION:: via car with Rocío. PLAN:: d/c home as per , no services anticipated.
[2019-05-16 11:45] LABS: Hemoglobin A1C 9.4 % (4.5-6.2)
[2019-05-16] MEDS: Regadenoson 0.4 MG/5 ML SYR IVP (11:46)
[2019-05-16] MEDS: Aspirin 81 MG CHEW PO (12:38)
[2019-05-16] MEDS: Enalapril 5 MG TAB 20 MG PO (12:38)
[2019-05-16] MEDS: Carvedilol 12.5 MG TAB PO ×2 (12:38→19:29)
[2019-05-16] MEDS: Loratidine 10 MG TAB PO (12:38)
[2019-05-16 12:54] LABS: Troponin I < 0.05 ng/mL (0.00-0.06)
--- NOTE | 2019-05-16 14:19 | CHAPLAIN ---
Bereket was sitting in a chair watching tv when I visited. He did not seem interested in a longer visit. I introduced myself, explained my role and offered support.
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
--- NOTE | 2019-05-16 16:15 | PHARADMIT ---
Admission Pharmacy Clinical Review dyspnea Code Status Full Code Current Weight 123 kg Renally Cleared and Narrow Therapeutic Index Meds Crcl ~73.1 mL/min using adjusted body weight current meds okay QTc Value / Action Taken QTc 482 BP Control, Fever BP 111/71 afebrile Electrolytes reviewed Na 133 Cl 94 DVT Prophylaxis enoxaparin Opiate Usage / Scheduled Bowel Regimen Ordered prn/prn Plt/SCr for Heparin / Enoxaparin plt 177 SCr 1.36 INR for Warfarin n/a H/H stable, WBC/Bands h/h 14.6/40.5 wbc 10.18 Antibiotic appropriateness none Cultures and Sensitivities none Surgical ABX d/c within 24 hr n/a DM control / Insulin Dosing BG 273 scheduled glargine, scheduled and sliding scale aspart Heart Failure (Check EF%) (DAA's, B-Block, Diuretics) carvedilol, enalapril, IV to PO Switch n/a Home Meds Reviewed -multiple COAL BAGGER depressants- loratadine, hydrocodone/APAP, pregabalin, -meloxicam may enhance the adverse/toxic effects of aspirin and may diminish the cardioprotective effects of aspirin. Home Meds Not Ordered chlorthalidone, meloxicam, nitroglycerin, triamcinolone Comments
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
== END 2019-05-16 20:15 | disposition short-term general hospital (02) ==
LOC: ER 16:25 → MS 22:08
PROVIDERS: Physician Assistant; Admitting Provider Internal Medicine; Emergency Provider Nurse Practitioner Family; PCP Family Medicine; Visit Provider Internal Medicine
DX: R06.09 Other forms of dyspnea (principal); I24.9 Acute ischemic heart disease, unspecified; I25.110 Atherosclerotic heart disease of native coronary artery with unstable angina pectoris; E11.42 Type 2 diabetes mellitus with diabetic polyneuropathy; I10 Essential (primary) hypertension; E78.5 Hyperlipidemia, unspecified; Z79.4 Long term (current) use of insulin; G89.29 Other chronic pain; E11.319 Type 2 diabetes mellitus with unspecified diabetic retinopathy without macular edema
CPT/HCPCS: 36415; 71275; 74177; 78452; 80048; 80053; 93005; 93016; 93018; 93306; 96372; 96374; 99220; 99239; 99285; J1650; 71046; 83036; 83735; 83880; 84484; 85025; 85379; 93010; 93017; 99217; 99284; G0378; J1940; J1941; J2785; J3490

== ENCOUNTER → 2019-05-16 08:08 | Outpatient (BNVA) | payer MEDICARE, SELFPAY | PROVIDERS: PCP Family Medicine; Visit Provider Internal Medicine Interventional Cardiology | DX: R69 Illness, unspecified (principal) ==

== ENCOUNTER 2019-05-26 13:46 | Outpatient (CLI) | payer MEDICARE, SELFPAY ==
[2019-05-26 16:43] LABS: ALT 33 U/L (16-63); AST 20 U/L (15-37); Albumin 3.6 g/dL (3.4-5.0); Alkaline Phosphatase 111 U/L (46-116); Anion Gap 8.3 mmol/L (3-11); BUN 49 mg/dL (7-18); Bilirubin, Total 0.5 mg/dL (0.2-1.0); CO2 25.7 mmol/L (21.0-32.0); CREATININE 2.08 mg/dL (0.70-1.30); Calcium 8.8 mg/dL (8.5-10.1); Chloride 102 mmol/L (98-107); Estimated GFR 32.41 (mL/min/1.73m2); Glucose 214 mg/dL (70-100); Sodium 136 mmol/L (136-145); Total Protein 6.8 g/dL (6.4-8.2)
[2019-05-26 18:39] LABS: Potassium 6.3 mmol/L (3.5-5.1)
== END 2019-05-26 14:06 ==
PROVIDERS: PCP Family Medicine; Visit Provider Family Medicine
DX: I25.10 Atherosclerotic heart disease of native coronary artery without angina pectoris (principal); N17.9 Acute kidney failure, unspecified
CPT/HCPCS: 36415; 80053

== ENCOUNTER 2019-05-27 15:02 | Outpatient (CLI) | payer MEDICARE, SELFPAY ==
[2019-05-27 16:40] LABS: COMMENT (LAB VIEW ONLY) 83.23 mg/dL
[2019-05-27 16:46] LABS: Microalb ug/mg Crea 357.9 ug/mg Cr
[2019-05-27 17:09] LABS: ALT 34 U/L (16-63); AST 21 U/L (15-37); Alkaline Phosphatase 100 U/L (46-116); Anion Gap 10.6 mmol/L (3-11); BUN 44 mg/dL (7-18); Bilirubin, Total 0.5 mg/dL (0.2-1.0); CO2 25.4 mmol/L (21.0-32.0); CREATININE 2.01 mg/dL (0.70-1.30); Calcium 9.4 mg/dL (8.5-10.1); Chloride 101 mmol/L (98-107); Estimated GFR 33.72 (mL/min/1.73m2); Glucose 107 mg/dL (70-100); Potassium 5.6 mmol/L (3.5-5.1); Sodium 137 mmol/L (136-145); Total Protein 7.2 g/dL (6.4-8.2)
== END 2019-05-27 15:22 ==
PROVIDERS: PCP Family Medicine; Visit Provider Family Medicine
DX: E11.9 Type 2 diabetes mellitus without complications (principal); I10 Essential (primary) hypertension; I50.810 Right heart failure, unspecified
CPT/HCPCS: 36415; 80053; 82043; 82570

== ENCOUNTER 2019-06-01 10:06 | Outpatient (CLI) | payer MEDICARE, SELFPAY ==
[2019-06-01 17:54] LABS: Potassium 5.4 mmol/L (3.5-5.1)
== END 2019-06-01 10:26 ==
PROVIDERS: Family Medicine; PCP Family Medicine; Visit Provider Family Medicine
DX: E87.5 Hyperkalemia (principal)
CPT/HCPCS: 36415; 84132

== ENCOUNTER 2019-06-06 13:02 | Outpatient (CLI) | payer MEDICARE, SELFPAY ==
[2019-06-06 17:44] LABS: Anion Gap 10.2 mmol/L (3-11); BUN 47 mg/dL (7-18); CO2 24.8 mmol/L (21.0-32.0); CREATININE 2.16 mg/dL (0.70-1.30); Chloride 103 mmol/L (98-107); Estimated GFR 31.03 (mL/min/1.73m2); Glucose 107 mg/dL (70-100); NT-proBNP 534 pg/mL; Potassium 5.8 mmol/L (3.5-5.1); Sodium 138 mmol/L (136-145)
== END 2019-06-06 13:22 ==
PROVIDERS: PCP Family Medicine; Visit Provider Family Medicine
DX: I50.9 Heart failure, unspecified (principal)
CPT/HCPCS: 36415; 80048; 83880

== ENCOUNTER 2019-06-10 02:16 | Outpatient (CLI) | payer MEDICARE, SELFPAY ==
[2019-06-10 12:48] LABS: Anion Gap 12.3 mmol/L (3-11); BUN 35 mg/dL (7-18); CO2 25.7 mmol/L (21.0-32.0); Calcium 9.2 mg/dL (8.5-10.1); Chloride 103 mmol/L (98-107); Estimated GFR 40.91 (mL/min/1.73m2); Glucose 109 mg/dL (70-100); Potassium 4.5 mmol/L (3.5-5.1); Sodium 141 mmol/L (136-145)
== END 2019-06-10 02:36 ==
PROVIDERS: PCP Family Medicine; Visit Provider Family Medicine
DX: E87.5 Hyperkalemia (principal)
CPT/HCPCS: 36415; 80048

== ENCOUNTER 2019-08-03 07:00 | Outpatient (CLI) | payer MEDICARE, SELFPAY ==
[2019-08-03 11:01] LABS: Calculated LDL 54 mg/dL; Cholesterol 123 mg/dL (50-200); HDL Cholesterol 56 mg/dL (40-60); Triglyceride 66 mg/dL (30-150)
[2019-08-03 11:02] LABS: Hemoglobin A1C 7.6 % (4.5-6.2)
== END 2019-08-03 07:20 ==
PROVIDERS: PCP Family Medicine; Visit Provider Family Medicine
DX: E11.9 Type 2 diabetes mellitus without complications
CPT/HCPCS: 36415; 80061; 83036

== ENCOUNTER → 2019-08-09 13:17 | Outpatient (BNVA) | payer MEDICARE, SELFPAY | PROVIDERS: PCP Family Medicine; Referring Provider Family Medicine; Visit Provider Internal Medicine Cardiovascular Disease | DX: I25.110 Atherosclerotic heart disease of native coronary artery with unstable angina pectoris (principal); Z95.1 Presence of aortocoronary bypass graft; E11.42 Type 2 diabetes mellitus with diabetic polyneuropathy; I10 Essential (primary) hypertension; Z79.01 Long term (current) use of anticoagulants | CPT/HCPCS: 99204; 99215 ==

== ENCOUNTER 2019-10-17 00:52 | Outpatient (CLI) | payer MEDICARE, SELFPAY ==
[2019-10-17 12:31] LABS: Abs Immature Grans 0.01 k/cumm (0.0-0.09); Absolute Basophil Count 0.01 k/cumm (0.0-0.2); Absolute Lymphocyte Count 0.92 k/cumm (1.2-3.4); Absolute Monocyte Count 0.74 k/cumm (0.11-0.7); Absolute Neutrophil Count 3.73 k/cumm (1.2-6.7); Basophils % 0.2; Eosinophils % 5.3; HCT 36.5 % (40.0-50.0); HGB 12.2 g/dL (13.5-17.5); Immature Grans % 0.2 %; Lymphocytes % 16.1; Mean Corp. HGB Concentration 33.4 g/dL (32.0-36.0); Mean Corpuscular Hemoglobin 28.7 pg (27.0-33.0); Mean Corpuscular Volume 85.9 fL (80-95); Mean Platelet Volume 10.4 fL (8.0-11.0); Neutrophils % 65.2; Platelet Count 161 x1000/uL (130-400); RBC 4.25 m/cumm (4.50-6.00); RBC Distribution Width 13.3 % (11.8-14.1); White Blood Cell Count 5.71 k/cumm (4.4-10.8)
[2019-10-17 12:39] LABS: Anion Gap 7.7 mmol/L (3-11); BUN 30 mg/dL (7-18); C-Reactive Protein 3.45 mg/dL (0.0-0.3); CO2 28.3 mmol/L (21.0-32.0); CREATININE 1.41 mg/dL (0.70-1.30); Chloride 102 mmol/L (98-107); Estimated GFR 50.77 (mL/min/1.73m2); Glucose 146 mg/dL (74-106); Potassium 4.2 mmol/L (3.5-5.1); Sodium 138 mmol/L (136-145)
[2019-10-17] MEDS: Normal Saline Flush 10 ML SYR IVP (13:20)
[2019-10-17] MEDS: Gadoterate meglumine 20 ML VIAL IVP (13:26)
--- NOTE | 2019-10-17 13:55 | DI.MRI_ITS ---
EXAM: MR LOWER EXTREMITY RT WO/W CLINICAL HISTORY: ABSCESS 4TH METATARSAL SPACE RT FOOT. TECHNIQUE: Multiplanar multisequence MRI was performed. MR examination of the foot was performed ut ilizing multislice acquisition including pre and post contrast T1 fat-sat imaging. COMPARISON: MRI - L LOWER EXT WO AND W CON from 09/10/2015 FINDINGS: There is abnormal signal in soft tissue adjacent to heads of the 4th and 5th metatarsals. Linear abn ormal signal noted in head of the 4th metatarsal, question nondisplaced fracture. Linear abnormal si gnal also noted with significant deformity of 5th metatarsal head, presumed fracture. Mildly abnorma l signal in 5th metatarsal adjacent to the fracture site. Mildly abnormal signal also seen in proxim al phalanx of 5th toe. Patient reportedly has 4th intermetatarsal space suspected abscess. No gross abscess cavity identified on T2 weighted imaging but intermediate signal may represent abscess. The post contrast imaging shows no gross enhancing rim to suggest abscess. Findings as described are mo re suggestive of post-traumatic findings rather than infectious process, although fracture of an infe cted metatarsal head is not excluded. There is no evidence of osteomyelitis involving 4th metatarsal , which also has findings suggesting nondisplaced metatarsal head fracture. No additional significant findings seen in visualized portions of the foot apart from marked degenera tive changes and hallux valgus deformity at the 1st MTP joint. IMPRESSION: Findings suggestive of post-traumatic deformity of 4th and 5th metatarsal heads, suspect occult fract ure rather than osteomyelitis although osteomyelitis of the 5th metatarsal is not excluded. Correlat ion with CT suggested for further evaluation. Please correlate clinically. No radiographs were available for comparison.
== END 2019-10-17 01:12 ==
PROVIDERS: PCP Family Medicine; Visit Provider Podiatrist
DX: L02.611 Cutaneous abscess of right foot (principal); M20.5X1 Other deformities of toe(s) (acquired), right foot
CPT/HCPCS: 80048; 73720; 85025; 86140

== ENCOUNTER 2020-02-07 14:20 | Outpatient (CLI) | payer MEDICARE, SELFPAY | END 2020-02-07 14:40 | PROVIDERS: PCP Family Medicine; Visit Provider Internal Medicine Cardiovascular Disease | DX: I50.810 Right heart failure, unspecified (principal); I25.110 Atherosclerotic heart disease of native coronary artery with unstable angina pectoris; E11.42 Type 2 diabetes mellitus with diabetic polyneuropathy; I11.0 Hypertensive heart disease with heart failure; Z79.4 Long term (current) use of insulin | CPT/HCPCS: 99214; 99443 ==

== ENCOUNTER → 2020-02-10 09:43 | Outpatient (BNVA) | payer MEDICARE, SELFPAY | PROVIDERS: PCP Family Medicine; Referring Provider Family Medicine; Visit Provider Internal Medicine Cardiovascular Disease | DX: R69 Illness, unspecified (principal) ==

== ENCOUNTER 2020-04-16 16:47 | Outpatient (REF) | payer MEDICARE, SELFPAY | END 2020-04-16 17:07 | LOC: LBN 16:47 | PROVIDERS: PCP Family Medicine; Visit Provider Podiatrist | DX: I96 Gangrene, not elsewhere classified (principal) | CPT/HCPCS: 87077; 87070; 87186; 87205 ==

== ENCOUNTER 2020-06-11 15:38 | Outpatient (REF) | payer MEDICARE, SELFPAY ==
[2020-06-11 16:10] LABS: Abs Immature Grans 0.02 10^3/uL (0.0-0.06); Absolute Basophil Count 0.05 10^3/uL (0.0-0.2); Absolute Eosinophil Count 0.27 10^3/uL (0.0-0.7); Absolute Lymphocyte Count 1.08 10^3/uL (1.2-3.4); Absolute Monocyte Count 0.65 10^3/uL (0.1-0.8); Absolute Neutrophil Count 4.98 10^3/uL (1.2-6.7); Basophils % 0.7; Eosinophils % 3.8; HCT 29.7 % (40.0-50.0); HGB 10.2 g/dL (13.5-17.5); Immature Grans % 0.3; Lymphocytes % 15.3; MCH 30.4 pg (27.0-33.0); MCHC 34.3 % (32.0-36.0); MCV 88.4 fL (80-95); MPV 11.2 fL (8.0-11.0); Monocytes % 9.2; Neutrophils % 70.7; Nucleated RBC 0 %; Platelet Count 157 10^3/uL (130-400); RBC 3.36 10^6/uL (4.36-5.78); RDW 13.1 % (11.8-14.1); RDW-SD 41.9 fL; WBC 7.05 10^3/uL (4.4-10.8)
[2020-06-11 16:24] LABS: ALT 23 U/L (16-63); AST 22 U/L (15-37); Albumin 3.3 g/dL (3.4-5.0); Alkaline Phosphatase 109 U/L (46-116); Anion Gap 6.3 mmol/L (3-11); BUN 32 mg/dL (7-18); Bilirubin, Total 0.3 mg/dL (0.2-1.0); CO2 29.7 mmol/L (21.0-32.0); CREATININE 1.78 mg/dL (0.70-1.30); Calcium 9.1 mg/dL (8.5-10.1); Chloride 103 mmol/L (98-107); Estimated GFR 38.67 (mL/min/1.73m2); Glucose 219 mg/dL (74-106); Potassium 5.1 mmol/L (3.5-5.1); Sodium 139 mmol/L (136-145); Total Protein 6.8 g/dL (6.4-8.2)
== END 2020-06-11 15:58 ==
LOC: LBN 15:38
PROVIDERS: PCP Family Medicine; Visit Provider Family Medicine
DX: M86.071 Acute hematogenous osteomyelitis, right ankle and foot (principal); T81.49XD Infection following a procedure, other surgical site, subsequent encounter; Z79.2 Long term (current) use of antibiotics
CPT/HCPCS: 80053; 85025; 86140

== ENCOUNTER 2020-06-14 08:19 | Emergency (ER) | payer MEDICARE, SELFPAY ==
[2020-06-14] VITALS (40 sets, daily range): BP systolic 140–168; BP diastolic 65–92; PULSE 55–75; RESP 14–24; TEMP 36.7; O2SAT 94–99
--- NOTE | 2020-06-14 08:28 | ED.GENADUL_ITS ---
Discharge Plan Disposition Patient Disposition: HOME Condition: Stable Discharge Details Clinical Impression: Allergic reaction caused by a drug Primary Care Provider: Anya Workman ED Provider: Radha Herbert [place] Meds and New Rx's Prescriptions: New ciprofloxacin HCl 750 mg tablet 750 mg PO TID 10 Days Qty: 30 RF: 0 prednisone 20 mg tablet 40 mg PO DAILY 5 Days Qty: 10 RF: 0 No Action furosemide 20 mg tablet 20 mg PO DAILY Qty: 90 RF: 3 nitroglycerin 0.4 mg tablet, sublingual 0.4 mg SL Q5-15M PRNRF: 0 triamcinolone acetonide 0.5 % ointment 1 applic Topical BID PRNRF: 0 ASPIRIN 81 MG tablet 81 mg PO DAILY RF: 0 (DME) BD Insulin Syringe 1 EACH syringe 1 ea Sub-Q QID Qty: 3 RF: 6 (DME) Aerochamber Plus Flow-Vu 1 EACH spacer 1 ea Miscellaneous PRN Qty: 1 RF: 0 (DME) blood-glucose meter [FreeStyle Lite Meter] 1 EACH kit 1 ea Miscellaneous TID Qty: 1 RF: 0 (DME) blood sugar diagnostic [FreeStyle Lite Strips] Strip 1 ea Miscellaneous QID Qty: 400 RF: 6 bupropion HCl 150 mg tablet extended release 24 hr 150 mg PO QAM Qty: 90 RF: 4 insulin aspart U-100 [Novolog Flexpen U-100 Insulin] 100 unit/mL (3 mL) insulin pen 25 unit Sub-Q AC Qty: 70 RF: 4 (DME) BD Regular Bevel [place] 21 gauge x 1 1/2 needle 1 ea Miscellaneous QID Qty: 100 RF: 6 pregabalin [Lyrica] 150 mg capsule 150 mg PO TID Qty: 90 RF: 3 hydrocodone-acetaminophen 7.5-325 mg tablet 1 tab PO BID MDD 2 tabs PRN (Reason: back pain) Qty: 60 RF: 0 multivitamin Tablet 1 tab PO DAILY RF: 0 clopidogrel 75 mg Tablet 75 mg PO DAILY RF: 0 acetaminophen 500 mg Tablet 1,000 mg PO Q6H PRNRF: 0 ceftazidime 6 gram recon soln 2 g IV TID RF: 0 carvedilol 12.5 mg tablet 25 mg PO BID RF: 0 rosuvastatin 40 mg tablet 40 mg PO HS RF: 0 Basaglar KwikPen U-100 Insulin 100 unit/mL (3 mL) insulin pen 30 unit subcut BID RF: 0 Discharge Instructions Instructions: General Allergic Reaction (ED) Additional Instructions: Stop the ceftazidime. Start the ciprofloxacin 3 times a day as instructed. Keep your follow-up appointment as previously scheduled. Return to the ED for any worsening rash, trouble breathing or any concerns. Follow up with primary care provider in 3-5 days. Return to ED sooner if any worsening or concerns. Increase oral fluids. Referrals: Anya Workman MD [Primary Care Provider] - Discharge Data Discharge Date/Time-TO BE ENTERED AT DEPARTURE: 06/14/20 12:05 Medical Decision Making 65-year-old male presents to the ER with chief complaint of rash and lip swelling which began yesterday. Patient is taking ceftazidime infusions at home via PICC line for bone infection and recent Right great toe amputation at [facility]. Patient has been on the medication for 1 week. He did take a kubg-vlj-hhivjqr antihistamine medication last night but nothing today. He said it helped somewhat. He is allergic to cephalexin and penicillins. He denies any wheezing or shortness of breath or trouble breathing. On initial exam he does have a raised maculopapular red pruritic rash noted to the top of his head, his lower abdomen and his lips are swollen. No stridor, lungs are clear to auscultation bilaterally. He does have a past medical history of congestive heart failure, coronary artery disease, diabetes, diabetic foot ulcer, hypertension, obesity, TIA and stroke, 0852: Call made to [facility] JEFF DONNELLY government relations analyst. Spoke with Betsey Avila [employer] SALESMAN discussed case and details with her, she recommends stopping the ceftazidime and she will call me back within the hour. 0920: Patient reevaluation, lips appear somewhat less swollen, erythema has decreased somewhat. Informed of contact me to [facility], and informed of plan to stop the current antibiotic. Verbalized understanding. 1016: Patient reevaluation x2 lips are much more less swollen, reports feeling much better. At this time still awaiting a callback from [facility] by infectious disease 1033: Call re-made to Betsey Gooley SHOE SALESMAN with infectious disease, She is still waiting to hear back from ID. 1136: Spoke with Bailee JAIME from [facility] who reports that the consensus is to start patient on oral antibiotics ciprofloxacin 750 mg 3 times a day and remove his PICC line. Medical Records Medical records reviewed: Yes I reviewed the patient's medical records. Medical records narrative: [facility] record review show patient recently was on Bactrim and Lisinopril and was instructed to stop those. He had labs drawn 3 days ago on 06-11-19. HPI General Mode of arrival: ambulatory . Date/Time Provider Initiated Documentation: 06/14/20 08:26 . Limitations to Documentation: no limitations . Information obtained by: patient . HPI Narrative: 65-year-old male presents to the ER with chief complaint of rash and lip swelling which began yesterday. Patient is taking ceftazidime infusions at home via PICC line for bone infection and recent Right great toe amputation at [facility]. Patient has been on the medication for 1 week. He did take a wxpw-ibw-jhlgsbe antihistamine medication last night but nothing today. He said it helped somewhat. He is allergic to cephalexin and penicillins. He denies any wheezing or shortness of breath or trouble breathing. On initial exam he does have a raised maculopapular red pruritic rash noted to the top of his head, his lower abdomen and his lips are swollen. No stridor, lungs are clear to auscultation bilaterally. He does have a past medical history of congestive heart failure, coronary artery disease, diabetes, diabetic foot ulcer, hypertension, obesity, TIA and stroke, Related Data Home Medications Medication Instructions Recorded Confirmed Aspirin 81 mg PO DAILY tab-cap 12/09/12 06/14/20 BD Insulin Syringe #3 box 10/14/16 02/07/20 Aerochamber Plus Flow-Vu #1 unit 03/15/18 09/23/19 blood-glucose meter [FreeStyle #1 kit 05/21/18 02/07/20 Lite Meter] nitroglycerin 0.4 mg sublingual 0.4 mg SL Q5-15M PRN 08/09/19 06/14/20 tablet blood sugar diagnostic #400 strip 09/15/19 02/07/20 furosemide 20 mg tablet 20 mg PO DAILY #90 tab 09/23/19 06/14/20 triamcinolone acetonide 0.5 % 1 applic TOPICAL BID PRN gm 10/11/19 06/14/20 topical ointment bupropion HCl 150 mg 24 hr tablet, 150 mg PO QAM #90 tab 12/01/19 06/14/20 extended release insulin aspart U-100 100 unit/mL 25 unit SUB-Q AC #70 ml 12/20/19 06/14/20 (3 mL) subcutaneous pen needle (disp) 21 G 21 gauge x 1 #100 each 01/30/20 02/07/20 1/2 pregabalin 150 mg capsule 150 mg PO TID #90 cap 02/23/20 06/14/20 hydrocodone 7.5 mg-acetaminophen 1 tab PO BID PRN #60 tab MDD 2 tabs 05/25/20 06/14/20 325 mg tablet acetaminophen 1,000 mg PO Q6H PRN 06/14/20 06/14/20 carvedilol 25 mg PO BID 06/14/20 06/14/20 ceftazidime 2 g IV TID 06/14/20 06/14/20 ciprofloxacin HCl 750 mg PO TID 10 Days #30 tab 06/14/20 clopidogrel 75 mg PO DAILY 06/14/20 06/14/20 insulin glargine [Basaglar KwikPen 30 unit SUBCUT BID 06/14/20 U-100 Insulin] multivitamin 1 tab PO DAILY 06/14/20 06/14/20 prednisone 40 mg PO DAILY 5 Days #10 tab 06/14/20 rosuvastatin 40 mg PO HS 06/14/20 06/14/20 Previous Rx's Medication Instructions Recorded Aerochamber Plus Flow-Vu #1 unit 03/15/18 blood-glucose meter [FreeStyle #1 kit 05/21/18 Lite Meter] blood sugar diagnostic #400 strip 09/15/19 furosemide 20 mg tablet 20 mg PO DAILY #90 tab 09/23/19 bupropion HCl 150 mg 24 hr tablet, 150 mg PO QAM #90 tab 12/01/19 extended release insulin aspart U-100 100 unit/mL 25 unit SUB-Q AC #70 ml 12/20/19 (3 mL) subcutaneous pen needle (disp) 21 G 21 gauge x 1 #100 each 01/30/20 1/2 pregabalin 150 mg capsule 150 mg PO TID #90 cap 02/23/20 hydrocodone 7.5 mg-acetaminophen 1 tab PO BID PRN #60 tab MDD 2 tabs 05/25/20 325 mg tablet ciprofloxacin HCl 750 mg PO TID 10 Days #30 tab 06/14/20 prednisone 40 mg PO DAILY 5 Days #10 tab 06/14/20 Allergies Allergy/AdvReac Type Severity Reaction Status Date / Time cephalexin monohydrate Allergy Severe SOB Unverified 06/14/20 08:29 [From Keflex] Penicillins Allergy Unknown Unverified 06/14/20 08:29 General MIRIAM: 3 Review of Systems Narrative: Constitutional: Negative for weight loss, alert and oriented, well groomed, normal body habitus, appears comfortable. HEENT: Denies trauma, headaches, blurry vision, nasal discharge, sore throat, trouble swallowing. Chest: Denies chest pain, palpitations, irregular rhythm, hypertension. Respiratory: Denies Shortness of breath, cough, hemoptysis. GI: Denies abdominal pain, nausea, vomiting, diarrhea, constipation. : Denies dysuria, hematuria, flank pain, rectal bleeding. Skin: Rash noted to the top of head abdomen began yesterday. Neuro: Denies dizziness, blurry vision, weakness, syncope, headache or facial numbness. Hematologic: Denies easy bruising, intolerance to heat or cold, hair loss. [facility] Medical History (Updated 06/14/20 @ 11:53 by Radha Herbert) Chronic pain syndrome low back pain Congestive heart failure Coronary artery disease involving [place] coronary artery of [place] heart with unstable angina pectoris (08/30/17) 08-24-2017 [facility] cardiac CATH: 3 vessel disease (LAD,LCx and RCA): coronary bypass sx pending Diabetes mellitus type 2, insulin dependent Diabetic foot ulcer Diabetic peripheral angiopathy Diabetic peripheral neuropathy DM (diabetes mellitus) Dyspnea on exertion (12/16/13) negative nuclear stress test echocardiogram: normal/ EF 65%/no valvulopathy Cardiol.eval. 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 S/p hydrocelectomy 07/24/14 Stroke (~2008) TIA (transient ischemic attack) Surgical History H/O surgical procedure A. 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 Father Diabetes Myocardial infarction Heart disease Sister Diabetes Social History Smoking/Tobacco Use Status: Former Tobacco Use Quit Date: 09/28/83 Tobacco: How many years used: 5 Alcohol Intake: never Drug use: Never Substance use type: does not use Pets and animals: Yes Pets and animals: cat(s) and dog(s) What type of physical activity do you participate in: none Do you feel safe in your relationship?: Yes Exam Narrative Exam Narrative: Constitutional: Alert and oriented x3. Appears stated age. Obese body habitus. Head: Normocephalic, no trauma. Eyes: Pupils PERRLA, Red reflex noted, EOM's intact. Eyelids symmetrical without lesions, discharge, or swelling. ENT: Bilateral TM's WNL, External ear normal to inspection, no mastoid TTP, swelling, or erythema, Nasal turbinates WNL, no nasal discharge. Normal dentition, Posterior pharynx WNL, no exudate. Swollen lips. Chest: RRR, Normal S1, S2, distal pulses intact. Resp: Lungs clear to auscultation bilaterally, no wheezes, rales, or rhonchi. No stridor. Musculoskeletal: Normal gait, 5/5 strength to all four extremities. Skin: Does have a red raised maculopapular rash noted to the top of his head, around his belt line, does have swollen lips.. Capillary refill less than 2 sec. Neurologic: Cranial nerves II-XII intact. Alert and oriented x 3. DTR's intact. Hematologic/Lymphatic: No ecchymosis, no lymphadenopathy.
[2020-06-14] MEDS: FAMOTIDINE 20 MG/50 ML BAG 200 MG IVPB (08:31)
[2020-06-14] MEDS: methylPREDNISolone SUCC 125 MG VIAL IVP (08:31)
[2020-06-14] MEDS: diphenhydrAMINE 50 MG/ML VIAL IVP (08:31)
[2020-06-14] MEDS: Normal Saline 1,000 ML 1000 ML IV (08:38)
[2020-06-14] MEDS: Normal Saline Flush 10 ML SYR IVP (08:38)
[2020-06-14] MEDS: Ciprofloxacin 250 MG TAB PO (11:58)
[2020-06-14] MEDS: Ciprofloxacin 500 MG TAB PO (11:58)
== END 2020-06-14 12:05 | disposition home or self-care (01) ==
PROVIDERS: Emergency Provider Registered Nurse Emergency; PCP Family Medicine
DX: L27.1 Localized skin eruption due to drugs and medicaments taken internally (principal); R22.0 Localized swelling, mass and lump, head; L53.9 Erythematous condition, unspecified; T36.1X5A Adverse effect of cephalosporins and other beta-lactam antibiotics, initial encounter; E11.9 Type 2 diabetes mellitus without complications; Z79.4 Long term (current) use of insulin; I10 Essential (primary) hypertension
CPT/HCPCS: 36592; 96361; 96374; 96375; 99284; J1200; J2930

== ENCOUNTER → 2020-07-30 13:29 | Outpatient (BNVA) | payer MEDICARE, SELFPAY | PROVIDERS: PCP Family Medicine; Referring Provider Family Medicine; Visit Provider Internal Medicine Cardiovascular Disease | DX: I25.110 Atherosclerotic heart disease of native coronary artery with unstable angina pectoris (principal); R06.09 Other forms of dyspnea; I50.9 Heart failure, unspecified; E11.40 Type 2 diabetes mellitus with diabetic neuropathy, unspecified; I11.0 Hypertensive heart disease with heart failure | CPT/HCPCS: 99214 ==

== ENCOUNTER → 2021-02-12 09:31 | Outpatient (BNVA) | payer MEDICARE, SELFPAY | PROVIDERS: PCP Family Medicine; Referring Provider Family Medicine; Visit Provider Internal Medicine Cardiovascular Disease | DX: I10 Essential (primary) hypertension (principal); I25.110 Atherosclerotic heart disease of native coronary artery with unstable angina pectoris; R07.89 Other chest pain; Z95.1 Presence of aortocoronary bypass graft; I50.810 Right heart failure, unspecified; E11.9 Type 2 diabetes mellitus without complications | CPT/HCPCS: 99214 ==

== ENCOUNTER 2021-03-21 03:39 | Outpatient (CLI) | payer MEDICARE, SELFPAY ==
[2021-03-21 12:40] LABS: ALT 30 U/L (16-63); AST 21 U/L (15-37); Albumin 3.9 g/dL (3.4-5.0); Alkaline Phosphatase 97 U/L (46-116); Anion Gap 9.9 mmol/L (3-11); BUN 29 mg/dL (7-18); Bilirubin, Total 0.6 mg/dL (0.2-1.0); CO2 29.1 mmol/L (21.0-32.0); CREATININE 1.4 mg/dL (0.70-1.30); Calcium 9.5 mg/dL (8.5-10.1); Calculated LDL 61 mg/dL (<100); Chloride 102 mmol/L (98-107); Cholesterol 138 mg/dL (<200); Estimated GFR 50.86 (mL/min/1.73m2); Glucose 173 mg/dL (74-106); HDL Cholesterol 53 mg/dL (40-60); Potassium 4.6 mmol/L (3.5-5.1); Sodium 141 mmol/L (136-145); Total Protein 7.1 g/dL (6.4-8.2); Triglyceride 120 mg/dL (<150)
[2021-03-21 12:47] LABS: COMMENT (LAB VIEW ONLY) 15.86 mg/dL
[2021-03-21 13:02] LABS: Hemoglobin A1C 9.3 % (<5.7)
== END 2021-03-21 03:40 | disposition home or self-care (01) ==
LOC: LOS 03:39
PROVIDERS: PCP Family Medicine; Visit Provider Family Medicine
DX: E11.9 Type 2 diabetes mellitus without complications (principal)
CPT/HCPCS: 36415; 80053; 80061; 82043; 82570; 83036

== ENCOUNTER 2021-03-23 09:05 | Emergency (ER) | payer MEDICARE, SELFPAY ==
[2021-03-23] VITALS (23 sets, daily range): BP systolic 181–248; BP diastolic 61–88; PULSE 61–69; RESP 12–20; TEMP 36; O2SAT 95–98
--- NOTE | 2021-03-23 09:00 | RT.EKG_ITS ---
APPROVED REPORT Exam: Resting ECG Reason for Exam: htn,nausea Patient Location: E HR:67 bpm ECG Measurements Heart Rate 67 AXIS RI 206 P -75 QRSd 167 QRS 86 QT 455 T -7 QTc 481 Conclusion Sinus or ectopic atrial rhythm...P axis (-45,135) Right bundle branch block...QRSd>120, terminal axis(90,270) Inferior infarct, age indeterminate...Q>35mS, T neg, II III aVF. RBBB. PVCs. No STEMI. I have reviewed and interpreted ECG and agree with software generated interpretation.
--- NOTE | 2021-03-23 09:25 | ED.GENADUL_ITS ---
Discharge Plan Disposition Patient Disposition: HOME Condition: Improving Discharge Details Clinical Impression: Hypertension Primary Care Provider: Anya Workman ED Provider: Bert Avalos Home Meds and New Rx's Prescriptions: Continued nitroglycerin 0.4 mg tablet, sublingual 0.4 mg SL Q5-15M PRNRF: 0 (DME) FreeStyle Alfredo 2 [place] Misc See Rx Instructions .ROUTE .MEDSUPPLY Qty: 1 RF: 0 (DME) FreeStyle Alfredo 2 Sensor Kit See Rx Instructions .ROUTE .MEDSUPPLY Qty: 2 RF: 6 ASPIRIN 81 MG tablet 81 mg PO DAILY RF: 0 (DME) BD Insulin Syringe 1 EACH syringe 1 ea Sub-Q QID Qty: 3 RF: 6 (DME) Aerochamber Plus Flow-Vu 1 EACH spacer 1 ea Miscellaneous PRN Qty: 1 RF: 0 (DME) blood-glucose meter [FreeStyle Lite Meter] 1 EACH kit 1 ea Miscellaneous TID Qty: 1 RF: 0 (DME) FreeStyle Lite Strips Strip 1 ea Miscellaneous QID Qty: 400 RF: 6 (DME) BD Regular Bevel [place] 21 gauge x 1 1/2 needle 1 ea Miscellaneous QID Qty: 100 RF: 6 carvedilol 12.5 mg tablet 25 mg PO BID Qty: 180 RF: 3 furosemide 20 mg tablet 20 mg PO DAILY Qty: 90 RF: 3 rosuvastatin 40 mg tablet 40 mg PO HS Qty: 90 RF: 4 triamcinolone acetonide 0.5 % ointment 1 applic Topical BID PRN (Reason: dermatitis) Qty: 15 RF: 3 insulin aspart U-100 [Novolog Flexpen U-100 Insulin] 100 unit/mL (3 mL) insulin pen 25 unit Sub-Q AC Qty: 70 RF: 4 pregabalin 150 mg capsule 150 mg PO TID Qty: 90 RF: 5 bupropion HCl 150 mg tablet extended release 24 hr 150 mg PO QAM Qty: 90 RF: 4 Basaglar KwikPen U-100 Insulin 100 unit/mL (3 mL) insulin pen 50 unit subcut BID Qty: 15 RF: 6 multivitamin Tablet 1 tab PO DAILY RF: 0 clopidogrel 75 mg Tablet 75 mg PO DAILY RF: 0 acetaminophen 500 mg Tablet 1,000 mg PO Q6H PRNRF: 0 No Action hydrocodone-acetaminophen 7.5-325 mg tablet 1 tab PO BID MDD 2 tabs PRN (Reason: back pain) Qty: 60 RF: 0 Discharge Instructions Instructions: Hypertension (ED) Additional Instructions: At this time your laboratory values do not reveal any obvious emergent process, you are currently asymptomatic, and your blood pressure is trending down nicely. As we discussed I would like you to take a double dose of your Lasix tomorrow and Thursday. Please continue monitoring your blood pressure. As we discussed, return to the ER for any new or worsening symptoms. Otherwise I would like you to contact your primary care provider on Thursday to discuss your ongoing symptoms, discuss your blood pressures as there may be a need for medication adjustment. Discharge Data Discharge Date/Time-TO BE ENTERED AT DEPARTURE: 03/23/21 12:00 Medical Decision Making 66-year-old gentleman, significant past medical history that includes CAD, triple bypass, chronic pain syndrome, CHF, diabetes, morbid obesity, hypertension, TIA, presents to the ER reporting elevated blood pressure readings over the past few days associated with intermittent nausea, now steady over the past 24 hours. Denies headache, neck pain, visual changes, focal weakness, chest pain, shortness of breath, abdominal pain. Clinically he appears well, nontoxic but his initial blood pressure reading in triage was 248/80. When reviewing his previous medical records, it does appear as though he does have chronically uncontrolled hypertension however not typically that high. Although low suspicion for ACS, will obtain single troponin and EKG, given the duration is single troponin and EKG should be sufficient for rule out. Would like to obtain routine laboratory values, IV access, and I am going to review his medications more carefully. Will provide IV Zofran for his nausea It appears as though he takes carvedilol 12.5 mg twice daily and Lasix 20 mg once daily. Plan will be to give 10 mg IV labetalol and reassess Prior to his IV labetalol administration, blood pressure upon recheck was 188/61. Upon reassessment he is now asymptomatic, denies any nausea whatsoever. Will hold on any aggressive hypertension therapy here in the ER as he is currently asymptomatic, blood pressure of 188/61, do not want his blood pressure to continue to drop rapidly. We will continue to monitor care Laboratory values do not reveal any obvious emergent process. No evidence of leukocytosis, anemia, electrolytes are unremarkable. Creatinine 1.4 with GFR 50 point 8X. Glucose 307, calcium 9.4 magnesium 1.8, troponin less than 0.05 BNP minimally elevated at 855. Urinalysis with greater than 300 protein, small blood, 500 glucose Patient remains asymptomatic, systolic blood pressure remains under 200, appears to be trending downward without any emergent therapy. Given his mild BNP of 855, would like to increase his Lasix dose as opposed to give IV labetalol. Will give 40 IV Lasix. It was brought to my attention that his IV is no longer usable, will give 40 p.o. Lasix instead. Upon reevaluation, he remains asymptomatic, blood pressure 181/66. Discussed his overall presentation, work-up here in the ER. Discussed disposition and need for follow-up. Recommend that he take 40 mg of Lasix the next 2 days, and then contact his primary care provider on Thursday morning to discuss his symptoms and need for outpatient reevaluation. He was encouraged to continue checking his blood pressure keeping a log of his pressures. He was encouraged to return to the ER for new or worsening symptoms which include not excluded to headache, visual changes, chest pain, shortness of breath, back pain, abdominal pain, diaphoresis, etc. Patient and are comfortable with this plan and have no additional questions or concerns. Upon discharge she is asymptomatic Medical Records Medical records reviewed: Yes I reviewed the patient's medical records. Imaging Data Radiologic Study: Attestation: I personally reviewed and interpreted this imaging study as follows: Imaging: X-Ray Radiologist's impression: Chest x-ray negative per radiology Lab Data Lab results reviewed: Yes I reviewed the patient's lab results. Labs: Laboratory Tests Range/Units 03/23/21 03/23/21 03/23/21 09:30 09:30 09:30 WBC (4.4-10.8) 10^3/uL 7.05 RBC (4.36-5.78) 10^6/uL 4.48 Hgb (13.5-17.5) g/dL 13.5 Hct (40.0-50.0) % 39.7 L MCV (80-95) fL 88.6 MCH (27.0-33.0) pg 30.1 MCHC (32.0-36.0) % 34.0 RDW (11.8-14.1) % 12.9 Plt Count (130-400) 10^3/uL 127 L MPV (8.0-11.0) fL 10.8 Immature Gran % 0.3 Neutrophils % 75.4 Lymphocytes % 10.5 Monocytes % 8.2 Eosinophils % 5.0 Basophils % 0.6 Nucleated RBC % % 0 Absolute Neutrophils (1.2-6.7) 10^3/uL 5.32 Absolute Lymphocytes (1.2-3.4) 10^3/uL 0.74 L Absolute Monocytes (0.1-0.8) 10^3/uL 0.58 Absolute Eosinophils (0.0-0.7) 10^3/uL 0.35 Absolute Basophils (0.0-0.2) 10^3/uL 0.04 Sodium (136-145) mmol/L 136 Potassium (3.5-5.1) mmol/L 4.6 Chloride (98-107) mmol/L 100 Carbon Dioxide (21.0-32.0) mmol/L 29.2 Anion Gap (3-11) mmol/L 6.8 BUN (7-18) mg/dL 20 H D Creatinine (0.70-1.30) mg/dL 1.4 H Estimated GFR/1.73 m2 (mL/min/1.73m2) 50.86 Glucose (74-106) mg/dL 307 H D Calcium (8.5-10.1) mg/dL 9.4 Magnesium (1.8-2.4) mg/dL 1.8 Total Bilirubin (0.2-1.0) mg/dL 0.7 AST (15-37) U/L 22 ALT (16-63) U/L 26 Alkaline Phosphatase (46-116) U/L 93 Troponin I (<0.06) ng/mL < 0.05 NT-Pro-B Natriuret Pep (<300) pg/mL 855 H Total Protein (6.4-8.2) g/dL 7.3 Albumin (3.4-5.0) g/dL 3.6 Urine Color (Yellow) Urine Clarity (Clear) Urine pH (5-8) Ur Specific [place] (1.005-1.025) Urine Protein (Negative) mg/dL Urine Ketones (Negative) mg/dL Urine Blood (Negative) Urine Nitrite (Negative) Urine Bilirubin (Negative) Urine Urobilinogen (Up TO 0.2) EU/dL Ur Leukocyte Esterase (Negative) Urine RBC (0-2) HPF Urine WBC (0-5) HPF Ur Epithelial Cells (Negative) HPF Urine Crystals (Negative) HPF Urine Bacteria (Negative) HPF Urine Casts (Negative) LPF Urine Mucus (Negative) Ur Culture Indicated? Urine Glucose (Negative) mg/dL Range/Units 03/23/21 10:43 WBC (4.4-10.8) 10^3/uL RBC (4.36-5.78) 10^6/uL Hgb (13.5-17.5) g/dL Hct (40.0-50.0) % MCV (80-95) fL MCH (27.0-33.0) pg MCHC (32.0-36.0) % RDW (11.8-14.1) % Plt Count (130-400) 10^3/uL MPV (8.0-11.0) fL Immature Gran % Neutrophils % Lymphocytes % Monocytes % Eosinophils % Basophils % Nucleated RBC % % Absolute Neutrophils (1.2-6.7) 10^3/uL Absolute Lymphocytes (1.2-3.4) 10^3/uL Absolute Monocytes (0.1-0.8) 10^3/uL Absolute Eosinophils (0.0-0.7) 10^3/uL Absolute Basophils (0.0-0.2) 10^3/uL Sodium (136-145) mmol/L Potassium (3.5-5.1) mmol/L Chloride (98-107) mmol/L Carbon Dioxide (21.0-32.0) mmol/L Anion Gap (3-11) mmol/L BUN (7-18) mg/dL Creatinine (0.70-1.30) mg/dL Estimated GFR/1.73 m2 (mL/min/1.73m2) Glucose (74-106) mg/dL Calcium (8.5-10.1) mg/dL Magnesium (1.8-2.4) mg/dL Total Bilirubin (0.2-1.0) mg/dL AST (15-37) U/L ALT (16-63) U/L Alkaline Phosphatase (46-116) U/L Troponin I (<0.06) ng/mL NT-Pro-B Natriuret Pep (<300) pg/mL Total Protein (6.4-8.2) g/dL Albumin (3.4-5.0) g/dL Urine Color (Yellow) Yellow Urine Clarity (Clear) Clear Urine pH (5-8) 7.0 Ur Specific [place] (1.005-1.025) 1.025 Urine Protein (Negative) mg/dL >=300 H Urine Ketones (Negative) mg/dL Negative Urine Blood (Negative) Small H Urine Nitrite (Negative) Negative Urine Bilirubin (Negative) Negative Urine Urobilinogen (Up TO 0.2) EU/dL 0.2 Ur Leukocyte Esterase (Negative) Negative Urine RBC (0-2) HPF 0-2 Urine WBC (0-5) HPF 0-2 Ur Epithelial Cells (Negative) HPF Rare Urine Crystals (Negative) HPF Negative Urine Bacteria (Negative) HPF Negative Urine Casts (Negative) LPF Negative Urine Mucus (Negative) Negative Ur Culture Indicated? No Urine Glucose (Negative) mg/dL 500 H ECG Data Attestation: I personally reviewed and interpreted this ECG (s) as follows: Interpretation: Please see official read by Dr. Miller. Sinus or ectopic atrial rhythm. Multiple PVCs. Right bundle branch block present. No STEMI HPI General Mode of arrival: ambulatory . Date/Time Provider Initiated Documentation: 03/23/21 09:09 . Limitations to Documentation: no limitations . Information obtained by: patient and family . HPI Narrative: This is a 66-year-old male, past medical history that includes CHF, chronic pain syndrome, CAD, triple bypass, diabetes type 2, poorly controlled hypertension, morbid obesity, TIA, takes Plavix daily, presenting to the ER for what he describes as 3-day history of his blood pressure running higher than usual, intermittent mild nausea, fairly steady over the past 24 hours. He denies any change of his medications, recent illness or trauma. He denies headache, visual changes, chest pain, shortness of breath, vomiting, back pain, change in bowel or bladder function, pain in his extremities, numbness, tingling, generalized or focal weakness. He reports that his blood pressure has been as high as 240/115 on his home monitor. Reports that his leg swelling is slightly worse than his typical baseline. Related Data Home Medications Medication Instructions Recorded Confirmed Aspirin 81 mg PO DAILY tab-cap 12/09/12 03/23/21 BD Insulin Syringe #3 box 10/14/16 08/01/20 Aerochamber Plus Flow-Vu #1 unit 03/15/18 08/01/20 blood-glucose meter [FreeStyle #1 kit 05/21/18 08/01/20 Lite Meter] nitroglycerin 0.4 mg sublingual 0.4 mg SL Q5-15M PRN 08/09/19 03/23/21 tablet blood sugar diagnostic #400 strip 09/15/19 08/01/20 needle (disp) 21 G 21 gauge x 1 #100 each 01/30/20 08/01/20 1/2 acetaminophen 1,000 mg PO Q6H PRN 06/14/20 03/23/21 clopidogrel 75 mg PO DAILY 06/14/20 03/23/21 multivitamin 1 tab PO DAILY 06/14/20 03/23/21 carvedilol 12.5 mg tablet 25 mg PO BID #180 tab 09/25/20 03/23/21 furosemide 20 mg tablet 20 mg PO DAILY #90 tab 10/12/20 03/23/21 rosuvastatin 40 mg tablet 40 mg PO HS #90 tab 10/12/20 03/23/21 triamcinolone acetonide 0.5 % 1 applic TOPICAL BID PRN #15 g 10/15/20 03/23/21 topical ointment insulin aspart U-100 100 unit/mL 25 unit SUB-Q AC #70 ml 11/26/20 03/23/21 (3 mL) subcutaneous pen pregabalin 150 mg capsule 150 mg PO TID #90 cap 12/07/20 03/23/21 bupropion HCl 150 mg 24 hr tablet, 150 mg PO QAM #90 tab 01/21/21 03/23/21 extended release insulin glargine 100 unit/mL (3 50 unit SUBCUT BID #15 ml 03/19/21 03/23/21 mL) subcutaneous pen flash glucose scanning reader #1 ea 03/22/21 03/22/21 flash glucose sensor #2 ea 03/22/21 03/22/21 hydrocodone 7.5 mg-acetaminophen 1 tab PO BID PRN #60 tab MDD 2 tabs 03/23/21 325 mg tablet Previous Rx's Medication Instructions Recorded Aerochamber Plus Flow-Vu #1 unit 03/15/18 blood-glucose meter [FreeStyle #1 kit 05/21/18 Lite Meter] blood sugar diagnostic #400 strip 09/15/19 needle (disp) 21 G 21 gauge x 1 #100 each 01/30/20 1/2 carvedilol 12.5 mg tablet 25 mg PO BID #180 tab 09/25/20 furosemide 20 mg tablet 20 mg PO DAILY #90 tab 10/12/20 rosuvastatin 40 mg tablet 40 mg PO HS #90 tab 10/12/20 triamcinolone acetonide 0.5 % 1 applic TOPICAL BID PRN #15 g 10/15/20 topical ointment insulin aspart U-100 100 unit/mL 25 unit SUB-Q AC #70 ml 11/26/20 (3 mL) subcutaneous pen pregabalin 150 mg capsule 150 mg PO TID #90 cap 12/07/20 bupropion HCl 150 mg 24 hr tablet, 150 mg PO QAM #90 tab 01/21/21 extended release insulin glargine 100 unit/mL (3 50 unit SUBCUT BID #15 ml 03/19/21 mL) subcutaneous pen flash glucose scanning reader #1 ea 03/22/21 flash glucose sensor #2 ea 03/22/21 hydrocodone 7.5 mg-acetaminophen 1 tab PO BID PRN #60 tab MDD 2 tabs 03/23/21 325 mg tablet Allergies Allergy/AdvReac Type Severity Reaction Status Date / Time cephalexin monohydrate Allergy Severe SOB Verified 03/23/21 09:13 [From Keflex] Penicillins Allergy Unknown Verified 03/23/21 09:13 General Stated Complaint: Nausea/Vomit/Diar MIRIAM: 3 Review of Systems Constitutional Constitutional: Denies fatigue, Denies fever(s), Denies headache(s) and Denies weakness Eyes Eyes: Denies change in vision ENT Ears, Nose, Mouth, and Throat: Denies headache(s) and Denies neck pain Cardiovascular Cardiovascular: Denies chest pain and Denies dyspnea Respiratory Respiratory: Denies cough and Denies dyspnea Gastrointestinal Gastrointestinal: Denies abdominal pain, Reports nausea and Denies vomiting Musculoskeletal Musculoskeletal: Reports back pain (Chronic), Denies neck pain and Denies tingling Integumentary/Breasts Skin/Breast: Denies rash Neurologic Neurologic: Denies headache(s), Denies tingling and Denies weakness Endocrine Endocrine: Denies fatigue Hematologic/Lymphatic Hematologic/Lymphatic: Reports easy bleeding and Reports easy bruising [facility] Medical History Chronic pain syndrome low back pain Congestive heart failure Coronary artery disease involving [place] coronary artery of [place] heart with unstable angina pectoris (08/30/17) 08-24-2017 [facility] cardiac CATH: 3 vessel disease (LAD,LCx and RCA): coronary bypass sx pending Diabetes mellitus type 2, insulin dependent Diabetic foot ulcer Diabetic peripheral angiopathy Diabetic peripheral neuropathy DM (diabetes mellitus) Dyspnea on exertion (12/16/13) negative nuclear stress test echocardiogram: normal/ EF 65%/no valvulopathy Cardiol.eval. 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 S/p hydrocelectomy 07/24/14 Stroke (~2008) TIA (transient ischemic attack) Surgical History H/O surgical procedure A. Hydrocelectomy 07/24/2014 History of cataract removal with insertion of prosthetic lens History of hydrocelectomy (07/24/14) right S/P CABG x 3 (08/30/17) [facility] [place] 08-29-2017 : no fup needed Family History Mother No problems noted. Father Diabetes Myocardial infarction Heart disease Sister Diabetes Social History Smoking/Tobacco Use Status: Former Tobacco Use Quit Date: 09/28/83 Tobacco: How many years used: 5 Smoking risk assessment performed?: Yes Alcohol Intake: never Drug use: Never Substance use type: does not use Pets and animals: Yes Pets and animals: cat(s) and dog(s) What type of physical activity do you participate in: none Do you feel safe in your relationship?: Yes Exam Const General: cooperative, healthy appearing, comfortable and no acute distress Orientation: alert, awake and oriented x3 [facility] Head: normal to inspection, normocephalic and atraumatic Face and sinus: normal facial exam Mouth: moist mucous membranes Eyes General: appearance normal, both eyes and all related structures Alignment and Position: alignment normal Periorbital: periorbital findings normal Eyelids: eyelids normal Conjunctivae: conjunctivae normal Sclera: sclerae normal Cornea: corneas normal Pupils: PERRL EOM: EOM intact bilaterally Direct ophthalmoscopy: normal light reflex Neck Neck: normal visual inspection, full ROM, trachea midline and supple Resp Effort & Inspection: normal respiratory effort and able to speak in complete sentences Auscultation: clear to auscultation bilaterally Cardio Rate: regular rate Rhythm: regular rhythm GI Inspection: obesity Palpation: soft, not firm, no guarding, no pulsatile masses and nontender Auscultation: normal bowel sounds Back/Spine/Pelvis Back: No back tenderness Skin General skin exam: no rashes or lesions noted Neuro General: patient alert, patient awake, patient oriented x3, moves all extremities and no focal motor deficits Cognition: normal cognition Speech: speech normal Gait: normal gait Motor: muscle tone normal throughout and strength 5/5 throughout Sensory Exam: no sensory deficits noted Extrem General: full ROM, capillary refill normal, no calf tenderness and pedal edema bilaterally non-pitting and 1+ Psych Appearance: grossly normal Mental Status: mental status grossly normal Course Vital Signs Vital signs: Vital Signs Temperature 36.0 C L 03/23/21 09:11 Pulse 69 03/23/21 09:11 Respiratory Rate 20 03/23/21 09:11 Blood Pressure 248/88 H 03/23/21 09:11 Pulse Oximetry 98 03/23/21 09:11 Temperature 36.0 C L 03/23/21 09:11 Temperature Source Skin 03/23/21 09:11 Pulse 69 03/23/21 09:11 Respiratory Rate 20 03/23/21 09:11 Blood Pressure 248/88 H 03/23/21 09:11 Blood Pressure Position Sitting 03/23/21 09:11 Pulse Oximetry 98 03/23/21 09:11 Oxygen Delivery Method Room Air 03/23/21 09:11 Oxygen Flow Rate 0 03/23/21 09:11 Pain Level 7 03/23/21 09:11
[2021-03-23 09:41] LABS: Abs Immature Grans 0.02 10^3/uL (0.0-0.06); Absolute Basophil Count 0.04 10^3/uL (0.0-0.2); Absolute Eosinophil Count 0.35 10^3/uL (0.0-0.7); Absolute Lymphocyte Count 0.74 10^3/uL (1.2-3.4); Absolute Monocyte Count 0.58 10^3/uL (0.1-0.8); Absolute Neutrophil Count 5.32 10^3/uL (1.2-6.7); Basophils % 0.6; HCT 39.7 % (40.0-50.0); HGB 13.5 g/dL (13.5-17.5); Immature Grans % 0.3; Lymphocytes % 10.5; MCH 30.1 pg (27.0-33.0); MCV 88.6 fL (80-95); MPV 10.8 fL (8.0-11.0); Monocytes % 8.2; Neutrophils % 75.4; Nucleated RBC 0 %; Platelet Count 127 10^3/uL (130-400); RBC 4.48 10^6/uL (4.36-5.78); RDW 12.9 % (11.8-14.1); RDW-SD 41.7 fL; WBC 7.05 10^3/uL (4.4-10.8)
[2021-03-23] MEDS: Normal Saline Flush 10 ML SYR IVP (09:42)
[2021-03-23] MEDS: Ondansetron 4 MG/2 ML VIAL IVP (09:43)
[2021-03-23 09:55] LABS: ALT 26 U/L (16-63); AST 22 U/L (15-37); Albumin 3.6 g/dL (3.4-5.0); Alkaline Phosphatase 93 U/L (46-116); Anion Gap 6.8 mmol/L (3-11); BUN 20 mg/dL (7-18); Bilirubin, Total 0.7 mg/dL (0.2-1.0); CO2 29.2 mmol/L (21.0-32.0); CREATININE 1.4 mg/dL (0.70-1.30); Calcium 9.4 mg/dL (8.5-10.1); Chloride 100 mmol/L (98-107); Estimated GFR 50.86 (mL/min/1.73m2); Glucose 307 mg/dL (74-106); Magnesium 1.8 mg/dL (1.8-2.4); Potassium 4.6 mmol/L (3.5-5.1); Sodium 136 mmol/L (136-145); Total Protein 7.3 g/dL (6.4-8.2); Troponin I < 0.05 ng/mL (<0.06)
[2021-03-23 10:00] LABS: NT-proBNP 855 pg/mL (<300)
--- NOTE | 2021-03-23 10:00 | DI.RAD_ITS ---
Exam(s) XR CHEST 2V PA LATERAL EXAM: XR CHEST 2V PA LATERAL CLINICAL HISTORY: nausea/htn. TECHNIQUE: 2D digital imaging was performed. COMPARISON: CR XR CHEST 2V PA LATERAL from 05/15/2019 FINDINGS: Sternotomy wires are again noted. Heart size is unchanged. Lungs are clear. No infiltrates nor pleural effusions. IMPRESSION: No acute pulmonary findings.Sternotomy wires again noted. DATA REPOSITORY: RADIATION DOSE DELIVERED:
[2021-03-23 11:07] LABS: Bilirubin Negative (Negative); Blood Small (Negative); Clarity Clear (Clear); Glucose 500 mg/dL (Negative); Ketones Negative (Negative); Leukocyte Esterase Negative (Negative); Nitrite Negative (Negative); Specific Gravity 1.025 (1.005-1.025); Urobilinogen 0.2 EU/dL (Up TO 0.2)
[2021-03-23 11:19] LABS: Bacteria Negative HPF (Negative); C & S Indicated? No; Casts Negative LPF (Negative); Crystals Negative HPF (Negative); Epithelial Cells Rare HPF (Negative); Mucus Negative (Negative); RBC 0-2 HPF (0-2); WBC 0-2 HPF (0-5)
--- NOTE | 2021-03-23 11:22 | DI.VRAD_ITS ---
PROCEDURE INFORMATION: Exam: XR Chest Exam date and time: 03/23/2021 10:14 AM Age: 66 years old Clinical indication: Other: Nausea/htn TECHNIQUE: Imaging protocol: XR of the chest. Views: 2 views. COMPARISON: CR XR CHEST 2V PA LATERAL 05/15/2019 5:08 PM FINDINGS: Lungs: Unremarkable. No consolidation. Pleural spaces: Unremarkable. No pleural effusion. No pneumothorax. Heart/Mediastinum: Unremarkable. No cardiomegaly. Bones/joints: Sternotomy. IMPRESSION: No acute findings Dictated and Authenticated by: Renee Gibbs MD. Ordering:LAURA Noel MD
[2021-03-23] MEDS: Furosemide 40 MG TAB PO (11:30)
== END 2021-03-23 12:00 | disposition home or self-care (01) ==
PROVIDERS: Emergency Provider Physician Assistant; PCP Family Medicine
DX: I11.0 Hypertensive heart disease with heart failure (principal); I50.9 Heart failure, unspecified; Z87.891 Personal history of nicotine dependence
CPT/HCPCS: 36415; 80053; 93005; 96374; 99284; 71046; 81003; 81015; 83735; 83880; 84484; 85025; 93010; 99283; J1940; J2405

== ENCOUNTER → 2021-05-29 02:02 | Outpatient (CLI) | payer MEDICARE, SELFPAY ==
--- NOTE | 2021-05-29 08:30 | DI.RAD_ITS ---
Exam(s) XR HAND RT COMPLETE EXAM: XR HAND RT COMPLETE CLINICAL HISTORY: no trauma/increasing pain and nodules,M79.641. TECHNIQUE: 2D digital imaging was performed. COMPARISON: No exams were available for comparison FINDINGS: BONES: No acute fracture is present. No bony destructive lesion is seen. No periarticular osteopenia. JOINTS: No dislocation present. There is swelling of several of the joints. Soft tissue calcificatio ns are seen adjacent to several of the joints particularly the 2nd MCP joint. Joint space narrowing and hypertrophic spurring is seen at the interphalangeal joints. No erosions are identified. Hypert rophic changes and joint space narrowing is seen at the 1st CMC joint. Vascular calcifications are p resent. SOFT TISSUE: Normal. IMPRESSION: 1. Findings suspicious for CPPD arthropathy. Osteoarthritis should also be considered. 2. Atherosclerosis. DATA REPOSITORY: RADIATION DOSE DELIVERED:
--- NOTE | 2021-05-29 08:30 | DI.RAD_ITS ---
Exam(s) XR HIP LT COMPLETE AP PELVIS EXAM: XR HIP LT COMPLETE AP PELVIS CLINICAL HISTORY: pain left hip/left thigh/no trauma,M25.552. TECHNIQUE: 2D digital imaging was performed. COMPARISON: No exams were available for comparison FINDINGS: BONES: No acute fracture is present. No bony destructive lesion is seen. JOINTS: No dislocation present. Degenerative changes are seen in the lower lumbar spine. SOFT TISSUE: Atherosclerosis. IMPRESSION: Unremarkable left hip. DATA REPOSITORY: RADIATION DOSE DELIVERED:
== END ==
PROVIDERS: PCP Family Medicine; Visit Provider Family Medicine
DX: M79.641 Pain in right hand (principal); M25.552 Pain in left hip; I70.8 Atherosclerosis of other arteries
CPT/HCPCS: 73130; 73502

== ENCOUNTER 2021-06-19 00:19 | Outpatient (CLI) | payer MEDICARE, SELFPAY ==
[2021-06-19 12:52] LABS: ALT 27 U/L (16-63); AST 24 U/L (15-37); Albumin 3.9 g/dL (3.4-5.0); Alkaline Phosphatase 83 U/L (46-116); Anion Gap 4.4 mmol/L (3-11); BUN 31 mg/dL (7-18); Bilirubin, Total 0.6 mg/dL (0.2-1.0); C-Reactive Protein 0.35 mg/dL (0.0-0.3); CO2 33.6 mmol/L (21.0-32.0); CREATININE 1.7 mg/dL (0.70-1.30); Calcium 9.4 mg/dL (8.5-10.1); Chloride 104 mmol/L (98-107); Estimated GFR 40.65 (mL/min/1.73m2); Glucose 153 mg/dL (74-106); Potassium 4.9 mmol/L (3.5-5.1); Sodium 142 mmol/L (136-145); Total Protein 6.9 g/dL (6.4-8.2)
[2021-06-19 13:59] LABS: COMMENT (LAB VIEW ONLY) 78.72 mg/dL
[2021-06-19 22:00] LABS: Rheumatoid Factor <8.6 IU/mL (<12.0)
[2021-06-20 12:20] LABS: ANA Interpretation Positive (Negative); ANA Titer Pattern 1:160 Homogeneous
== END 2021-06-19 00:20 | disposition home or self-care (01) ==
PROVIDERS: PCP Family Medicine; Visit Provider Family Medicine
DX: M19.049 Primary osteoarthritis, unspecified hand; E11.9 Type 2 diabetes mellitus without complications
CPT/HCPCS: 36415; 80053; 82043; 82570; 83036; 84550; 86038; 86140; 86431

== ENCOUNTER → 2021-08-12 10:45 | Outpatient (BNVA) | payer MEDICARE, SELFPAY | PROVIDERS: PCP Family Medicine; Referring Provider Family Medicine; Visit Provider Internal Medicine Cardiovascular Disease | DX: I25.110 Atherosclerotic heart disease of native coronary artery with unstable angina pectoris (principal); I12.9 Hypertensive chronic kidney disease with stage 1 through stage 4 chronic kidney disease, or unspecified chronic kidney disease; E11.22 Type 2 diabetes mellitus with diabetic chronic kidney disease; Z79.4 Long term (current) use of insulin; N18.9 Chronic kidney disease, unspecified | CPT/HCPCS: 99214 ==

== ENCOUNTER 2021-11-07 02:44 | Outpatient (CLI) | payer MEDICARE, SELFPAY ==
[2021-11-07 16:47] LABS: Hemoglobin A1C 6.5 % (<5.7)
[2021-11-07 17:23] LABS: ALT 33 U/L (16-63); AST 25 U/L (15-37); Albumin 3.7 g/dL (3.4-5.0); Alkaline Phosphatase 116 U/L (46-116); Anion Gap 7.5 mmol/L (3-11); BUN 40 mg/dL (7-18); Bilirubin, Total 0.4 mg/dL (0.2-1.0); CO2 28.5 mmol/L (21.0-32.0); CREATININE 1.7 mg/dL (0.70-1.30); Calcium 8.9 mg/dL (8.5-10.1); Chloride 107 mmol/L (98-107); Estimated GFR 40.65 (mL/min/1.73m2); Glucose 187 mg/dL (74-106); Potassium 4.8 mmol/L (3.5-5.1); Sodium 143 mmol/L (136-145); Total Protein 6.8 g/dL (6.4-8.2)
[2021-11-07 17:58] LABS: Uric Acid 5.9 mg/dL (3.5-7.2)
== END 2021-11-07 02:45 | disposition home or self-care (01) ==
LOC: LBO 02:44
PROVIDERS: PCP Family Medicine; Visit Provider Dermatology
DX: N18.9 Chronic kidney disease, unspecified (principal); Z11.9 Encounter for screening for infectious and parasitic diseases, unspecified; Z79.4 Long term (current) use of insulin
CPT/HCPCS: 36415; 80048; 80053; 83036; 84550

== ENCOUNTER 2021-11-29 01:05 | Outpatient (CLI) | payer MEDICARE, SELFPAY ==
--- NOTE | 2021-11-29 07:00 | DI.RAD_ITS ---
Exam(s) XR CHEST 2V PA LATERAL EXAM: XR CHEST 2V PA LATERAL CLINICAL HISTORY: recent increase SOB , new edema,? chf,R06.02 TECHNIQUE: 2D digital imaging was performed of the chest. Three images were obtained. PA and later al views were obtained. COMPARISON: CR,XR XR CHEST 2V PA LATERAL from 03/23/2021 FINDINGS: MEDIASTINUM: Normal. HEART: Stable heart size. PULMONARY VASCULATURE: Normal. LUNGS: Clear. PLEURAL SPACE: No pleural effusion or pneumothorax. BONE:Within normal limits for the patient's age. Stable appearance of the sternal wires. OTHER FINDINGS:Normal. IMPRESSION: No acute pulmonary findings. DATA REPOSITORY: RADIATION DOSE DELIVERED:
--- NOTE | 2021-11-29 10:15 | DI.US_ITS ---
APPROVED REPORT EXAM: Comprehensive 2D, Doppler, and color-flow Echocardiogram Patient Location: Out-Patient Senior Environmental Consultant: Marycruz King RDCS (AE) Indications: H/O CAD, Increased Edema, HTN Other Information Study Quality: Fair. Technically limited study due to body habitus. Conclusion Normal left ventricular wall thickness and chamber size. Estimated ejection fraction is 55%. Wall m otion is normal The right ventricle was not well visualized The left atrium is mildly dilated. The right atrium was not well visualized The aortic valve is sclerotic, probably trileaflet, no stenosis or regurgitation Mild mitral annular calcification with mild mitral regurgitation Mild tricuspid regurgitation. Estimated right ventricular systolic pressure is 47 mmHg Dilated ascending aorta measuring 3.87 cm Wall motion Left Ventricle The left ventricle is upper normal size. The overall left ventricular systolic function appears low n ormal. There is normal left ventricular wall thickness. There is no ventricular septal defect visuali zed. LVEF is 55%. Right Ventricle Right ventricle is not well visualized. Right ventricular systolic function could not be assessed. Th e RVSP is 46.9 mmHg. Atria Left atrium is mildly dilated. Right atrium is not well visualized. The interatrial septum is intact with no evidence for an atrial septal defect. Aortic Valve The Aortic valve is sclerotic. Aortic valve is probably trileaflet. There is no aortic valvular steno sis. No aortic regurgitation is present. Mitral Valve Mild mitral annular calcification. No significant mitral valve stenosis. Mild mitral regurgitation. Tricuspid Valve The tricuspid valve is normal in structure. There is no tricuspid valve stenosis. Mild tricuspid regu rgitation. Pulmonic Valve Pulmonic valve is not well visualized. There is no pulmonic valvular stenosis. There is no pulmonic v alvular regurgitation. Great Vessels The aortic root is normal in size. The ascending aorta is mildly dilated. Aortic arch is not well vis ualized. The IVC collapses <50% with inspiration. Pericardium There is no pericardial effusion. 2D Dimensions IVSD d PLAX 1.22 cm M: 0.6-1.2 LVPW d PLAX 1.22 cm M: 0.6 - 1.2 LVID d PLAX 5.80 cm M: 4.2 - 5.8 LVDs 4.05 cm M: 2.5 - 4.0 Ao Root d 3.31 cm M: 3.1 - 3.7 Ao Asc Diam d 3.87 cm M: 2.6 - 3.4 LV EF Teichholz 56.5 % FS 30.00 % LV Diastology E/A Ratio 2.5 MV E Vmax 1.48 (0.4-1.3 m/s) MV A Vmax 0.60 (0.4-1.3 m/s) MV E/A Ratio 2.29 Aortic Valve LVOT Area 3.88 cm2 AoV Area Vmax 2.93 cm2 LVOT Vmax 1.14 m/s AoV Area/ BSA (Vmax) 1.16 cm2/m2 LVOT Mean Sher. 0.79 m/s HLALIE Mean Sher. 2.64 cm2 LVOT Peak Grad 5.2 mmHg HALLIE Mean Sher. Index 1.05 cm2/m2 LVOT Mean Grad 2.9 mmHg LVOT VTI 0.257 m LVOT Diam s 2.20 cm AoV Vmax 1.51 m/s Velocity Ratio 0.75 AoV Mean Sher. 1.17 m/s AoV Peak Grad 9.1 mmHg LVOT SV 99.65 mL AoV Mean Grad 5.9 mmHg AoV VTI 0.392 m AoV Area VTI 2.54 cm2 AoV Area/ BSA (VTI) 1.01 cm/m2 Mitral Valve MV DT 206 (160-240 msec) MR Vmax 4.91 m/s MV PHT 60 msec MR VTI 1.743 m MV Area PHT 3.67 cm2 MR Peak Grad 96.6 mmHg MV VTI 0.414 m MR Mean Grad 70.6 mmHg MV Area VTI 2.41 (4.0-6.0 cm2) Pulmonary Valve PV Vmax 0.90 (0.5-1.5 m/s) RVOT Peak Gr. 2.43 mmHg PV Peak Grad 3.3 mmHg RVOT Mean Gr. 1.25 mmHg PV Mean Grad 2.2 mmHg RVOT VTI 0.187 m PV VTI 0.218 m RVOT Vmax 0.78 m/s Tricuspid Valve TR Peak Grad 38.8 mmHg TR Vmax 3.12 m/s RA Pressure 8.00 mmHg RVSP (TR) 46.9 mmHg
== END 2021-11-29 01:25 ==
PROVIDERS: PCP Family Medicine; Visit Provider Family Medicine
DX: R06.02 Shortness of breath (principal); I25.110 Atherosclerotic heart disease of native coronary artery with unstable angina pectoris; R60.9 Edema, unspecified; I77.819 Aortic ectasia, unspecified site
CPT/HCPCS: 93306; 71046

== ENCOUNTER → 2021-12-16 09:39 | Outpatient (BNVA) | payer MEDICARE, SELFPAY | PROVIDERS: PCP Family Medicine; Referring Provider Family Medicine; Visit Provider Internal Medicine Cardiovascular Disease | DX: R60.0 Localized edema (principal); N18.9 Chronic kidney disease, unspecified; E11.9 Type 2 diabetes mellitus without complications; Z79.4 Long term (current) use of insulin; I10 Essential (primary) hypertension; Z95.1 Presence of aortocoronary bypass graft | CPT/HCPCS: 99214; 99213 ==

== ENCOUNTER 2022-01-22 04:54 | Outpatient (CLI) | payer MEDICARE, SELFPAY | END 2022-01-22 04:55 | disposition home or self-care (01) | LOC: LBO 04:54 | PROVIDERS: PCP Nurse Practitioner Family; Visit Provider Internal Medicine Nephrology ==

== ENCOUNTER 2022-01-27 02:34 | Outpatient (CLI) | payer MEDICARE, SELFPAY ==
[2022-01-27 17:01] LABS: Anion Gap 9.1 mmol/L (3-11); BUN 69 mg/dL (7-18); CO2 29.9 mmol/L (21.0-32.0); CREATININE 3.1 mg/dL (0.70-1.30); Calcium 9.2 mg/dL (8.5-10.1); Chloride 102 mmol/L (98-107); Estimated GFR 20.26 (mL/min/1.73m2); Glucose 179 mg/dL (74-106); Sodium 141 mmol/L (136-145)
== END 2022-01-27 02:35 | disposition home or self-care (01) ==
LOC: LBO 02:35
PROVIDERS: Family Medicine; PCP Nurse Practitioner Family; Visit Provider Internal Medicine Nephrology
DX: N18.9 Chronic kidney disease, unspecified (principal); E11.9 Type 2 diabetes mellitus without complications; Z79.4 Long term (current) use of insulin
CPT/HCPCS: 36415; 80048

== ENCOUNTER 2022-02-20 05:02 | Inpatient (IN) | payer MEDICARE, SELFPAY ==
[2022-02-20 05:09] VITALS: BP 117/37; PULSE 72; RESP 20; TEMP 38.2; O2SAT 98
--- NOTE | 2022-02-20 05:15 | DI.US_ITS ---
Exam(s) US LOWER EXTREMITY VENOUS LT EXAM: US LOWER EXTREMITY VENOUS LT CLINICAL HISTORY: swelling TECHNIQUE: Left lower extremity venous ultrasound performed using grayscale, color-flow, and spectra l Doppler analysis. COMPARISON: No exams were available for comparison FINDINGS: The left common femoral, femoral and popliteal veins demonstrate normal compressibility, augmentation , and color Doppler. The posterior tibial veins are patent. The saphenofemoral junction is unremarka ble. There is no evidence of a Lugo cyst. The soft tissues are unremarkable. IMPRESSION: 1. No DVT. 2. Results of this exam have been verbally communicated with provider. DATA REPOSITORY:
--- NOTE | 2022-02-20 05:15 | DI.RAD_ITS ---
Exam(s) XR FOOT LT COMPLETE EXAM: XR FOOT LT COMPLETE CLINICAL HISTORY: cellulitis. TECHNIQUE: 2D digital imaging was performed of the left foot. Three images were obtained. AP, obli que and lateral views were obtained. COMPARISON: CR LEFT FOOT COMPLETE from 09/08/2015 FINDINGS: BONES: No acute fracture is present. There is a small plantar osteophyte in the calcaneus. There is a small enthesophyte at the Achilles insertion site. Since the prior examination, there has been an amputation of the 5th toe to the level of the mid 5th metatarsal bone. No destructive changes are se en to suggest osteomyelitis. JOINTS: No dislocation present. Mild degenerative changes are seen in the bones. SOFT TISSUE: There is soft tissue swelling present. Atherosclerosis is present. IMPRESSION: Soft tissue swelling of the foot but no findings to suggest osteomyelitis. DATA REPOSITORY: RADIATION DOSE DELIVERED:
--- NOTE | 2022-02-20 05:27 | ED.GENADUL_ITS ---
Discharge Plan Disposition Patient Disposition: [facility] INPATIENT Condition: Stable Discharge Details Chief Complaint: GenMedical Clinical Impression: Diabetic foot infection, SIRS (systemic inflammatory response syndrome) Primary Care Provider: Jarrod Schultz ED Provider: Slick Sabillon [place] Meds and New Rx's Prescriptions: No Action rosuvastatin 40 mg tablet See Rx Instructions .ROUTE .COMPLEX Qty: 90 3RF Dose Instruction: TAKE ONE TABLET BY MOUTH EVERY DAY AT BEDTIME Rx Instructions: TAKE ONE TABLET BY MOUTH EVERY DAY AT BEDTIME nitroglycerin 0.4 mg tablet, sublingual 0.4 mg SL Q5-15M PRN (Reason: chest pain) Qty: 25 0RF triamcinolone acetonide 0.5 % ointment 1 applic Topical BID PRN (Reason: dermatitis) Qty: 80 1RF aspirin [Adult Aspirin Regimen] 81 mg tablet,delayed release (DR/EC) 81 mg PO DAILY hydrocodone-acetaminophen 7.5-325 mg tablet 1 tab PO BID MDD 2 tabs PRN (Reason: back pain) Qty: 56 0RF (DME) BD Insulin Syringe 1 EACH syringe 1 ea Sub-Q QID Qty: 3 Rx Instructions: B/D INSULIN ULTRA-FINE 30GX0.3/ (DME) Aerochamber Plus Flow-Vu 1 EACH spacer 1 ea Miscellaneous PRN Qty: 1 0RF (DME) blood-glucose meter [FreeStyle Lite Meter] 1 EACH kit 1 ea Miscellaneous TID Qty: 1 0RF (DME) FreeStyle Lite Strips Strip 1 ea Miscellaneous QID Qty: 400 6RF Rx Instructions: 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 E11.42 bupropion HCl 150 mg tablet extended release 24 hr 150 mg PO QAM Qty: 90 4RF Basaglar KwikPen U-100 Insulin 100 unit/mL (3 mL) insulin pen 50 unit subcut BID Qty: 15 6RF (DME) FreeStyle Alfredo 2 [place] Misc See Rx Instructions .ROUTE .MEDSUPPLY Qty: 1 0RF Rx Instructions: As directed (DME) FreeStyle Alfredo 2 Sensor Kit See Rx Instructions .ROUTE .MEDSUPPLY Qty: 2 6RF Rx Instructions: As directed (DME) BD Regular Bevel Marydel 21 gauge x 1 1/2 needle 1 ea Miscellaneous QID Qty: 100 6RF Rx Instructions: BD U100 29g 1/2 with safety lock insulin syringes Dx E11.49 clopidogrel 75 mg tablet 75 mg PO DAILY Qty: 90 4RF (DME) pen needle, diabetic [BD Ultra-Fine Short Pen Needle] 31 gauge x 5/16 needle See Rx Instructions .ROUTE .MEDSUPPLY Qty: 100 4RF Rx Instructions: check blood sugar qid lisinopril 5 mg tablet 5 mg PO DAILY Qty: 90 1RF carvedilol 25 mg tablet 25 mg PO BID Qty: 180 3RF pregabalin 150 mg capsule 150 mg PO TID Qty: 90 5RF furosemide 40 mg tablet 40 mg PO DAILY insulin aspart U-100 [Novolog Flexpen U-100 Insulin] 100 unit/mL (3 mL) insulin pen 30 unit Sub-Q AC Qty: 70 4RF multivitamin Tablet 1 tab PO DAILY acetaminophen 500 mg Tablet 1,000 mg PO Q6H PRN Medical Decision Making 67 yo male with hx of DM, who finished clindamycin for treatment of a left leg wound infection yesterday, comes in with continued pain and swelling of the left leg and chills. Denies any fevers though is febrile on arrival here to 38.2. His left lower leg is swollen compared to the left and is warm as well as erythematous to the mid tibia. He has an ulcerated wound on the plantar surface of the left big toe, I do not see or feel any tunneling. He has intact sensation. His exam is worrisome for cellulitis and given the toe lesion concern for osteo. He has failed oral outpatient anbitiotics so will likely need admissionfor IV antibiotics. Will obtain xray, labs including cbc, lactate, cmp, and cultures and also dvt u/s. pt stable, does have wbc of 16 and bun of over 90, has known ckd. Xray read pending but given he has failed outpatient therapy and has leukocytosis and a fever will admit for IV abx, discussed with Dr. Kinney who accepts for admission Differential Diagnosis Differential Diagnosis: dvt, osteomyelitis, diabetic foot Imaging Data Radiologic Study: Attestation: I personally reviewed and interpreted this imaging study as follows: Imaging: X-Ray My impression: no acute findings Lab Data Lab results reviewed: Yes I reviewed the patient's lab results. HPI General Date/Time Provider Initiated Documentation: 02/20/22 05:04 . Limitations to Documentation: no limitations . Information obtained by: patient . History of Present Illness 67 year old M presents to the emergency department with the chief complaint of left leg pain, described as moderate, Quality is described as aching, Patient started experiencing this week(s) (1) and it has been constant. No relieving factors improve symptom(s), No exacerbating factors reported . Related Data Home Medications Medication Instructions Recorded Confirmed insulin syringe-needle U-100 1 mL ##3 10/14/16 02/20/22 26 x 1/2 (BD Insulin Syringe) inhalational spacing device #1 unit 03/15/18 02/20/22 (Aerochamber Plus Flow-Vu) blood-glucose meter (FreeStyle ##1 05/21/18 02/20/22 Lite Meter kit) blood sugar diagnostic (FreeStyle #400 strips 09/15/19 02/20/22 Lite Strips) acetaminophen 500 mg tablet 1,000 mg PO Q6H PRN 06/14/20 02/20/22 multivitamin 1 tab PO DAILY 06/14/20 02/20/22 bupropion HCl 150 mg 24 hr tablet, 150 mg PO QAM #90 tabs 01/21/21 02/20/22 extended release insulin glargine 100 unit/mL (3 50 unit (0.5 mL) subcut BID #15 mL 03/19/21 02/20/22 mL) subcutaneous pen (Basaglar KwikPen U-100 Insulin) flash glucose scanning reader #1 ea 04/09/21 02/20/22 (FreeStyle Alfredo 2 [place]) flash glucose sensor (FreeStyle #2 ea 04/09/21 02/20/22 Alfredo 2 Sensor kit) needle (disp) 21 G 21 gauge x 1 #100 ea 04/12/21 02/20/22 1/2 (BD Regular Bevel Marydel) clopidogrel 75 mg tablet 75 mg PO DAILY #90 tabs 05/28/21 02/20/22 aspirin 81 mg tablet,delayed 81 mg PO DAILY 08/12/21 02/20/22 release (Adult Aspirin Regimen) pen needle, diabetic 31 gauge x #100 ea 08/15/21 02/20/2202/10 (BD Ultra-Fine Short Pen Needle) lisinopril 5 mg tablet 5 mg PO DAILY #90 tabs 09/03/21 02/20/22 carvedilol 25 mg tablet 25 mg PO BID #180 tabs 10/16/21 02/20/22 nitroglycerin 0.4 mg sublingual 0.4 mg sublingual Q5-15M PRN chest 11/27/21 02/20/22 tablet pain #25 tabs rosuvastatin 40 mg tablet See Rx Instructions .Route 11/27/21 02/20/22 .COMPLEX #90 tabs triamcinolone acetonide 0.5 % 1 applic topical BID PRN 11/27/21 02/20/22 topical ointment dermatitis #80 grams hydrocodone 7.5 mg-acetaminophen 1 tab PO BID PRN back pain #56 tabs 12/09/21 02/20/22 325 mg tablet pregabalin 150 mg capsule 150 mg PO TID #90 caps 12/10/21 02/20/22 furosemide 40 mg tablet 40 mg PO DAILY 01/31/22 02/20/22 insulin aspart U-100 100 unit/mL 30 unit (0.3 mL) subcut AC #70 mL 02/07/22 02/20/22 (3 mL) subcutaneous pen (Novolog Flexpen U-100 Insulin aspart) Previous Rx's Medication Instructions Recorded inhalational spacing device #1 unit 03/15/18 (Aerochamber Plus Flow-Vu) blood-glucose meter (FreeStyle ##1 05/21/18 Lite Meter kit) blood sugar diagnostic (FreeStyle #400 strips 09/15/19 Lite Strips) bupropion HCl 150 mg 24 hr tablet, 150 mg PO QAM #90 tabs 01/21/21 extended release insulin glargine 100 unit/mL (3 50 unit (0.5 mL) subcut BID #15 mL 03/19/21 mL) subcutaneous pen (Basaglar KwikPen U-100 Insulin) flash glucose scanning reader #1 ea 04/09/21 (FreeStyle Alfredo 2 [place]) flash glucose sensor (FreeStyle #2 ea 04/09/21 Alfredo 2 Sensor kit) needle (disp) 21 G 21 gauge x 1 #100 ea 04/12/21 1/2 (BD Regular Bevel Marydel) clopidogrel 75 mg tablet 75 mg PO DAILY #90 tabs 05/28/21 pen needle, diabetic 31 gauge x #100 ea 08/15/2116 (BD Ultra-Fine Short Pen Needle) lisinopril 5 mg tablet 5 mg PO DAILY #90 tabs 09/03/21 carvedilol 25 mg tablet 25 mg PO BID #180 tabs 10/16/21 nitroglycerin 0.4 mg sublingual 0.4 mg sublingual Q5-15M PRN chest 11/27/21 tablet pain #25 tabs rosuvastatin 40 mg tablet See Rx Instructions .Route 11/27/21 .COMPLEX #90 tabs triamcinolone acetonide 0.5 % 1 applic topical BID PRN 11/27/21 topical ointment dermatitis #80 grams hydrocodone 7.5 mg-acetaminophen 1 tab PO BID PRN back pain #56 tabs 12/09/21 325 mg tablet pregabalin 150 mg capsule 150 mg PO TID #90 caps 12/10/21 insulin aspart U-100 100 unit/mL 30 unit (0.3 mL) subcut AC #70 mL 02/07/22 (3 mL) subcutaneous pen (Novolog Flexpen U-100 Insulin aspart) Allergies Allergy/AdvReac Type Severity Reaction Status Date / Time cephalexin monohydrate Allergy Severe SOB Verified 02/20/22 05:14 [From Keflex] Penicillins Allergy Unknown Verified 02/20/22 05:14 General Stated Complaint: GenMedical MIRIAM: 3 Review of Systems All systems reviewed & are unremarkable except as noted in HPI and below Constitutional Constitutional: Denies fever(s) and Denies weakness Eyes Eyes: Denies loss of vision ENT Ears, Nose, Mouth, and Throat: Denies change in voice Cardiovascular Cardiovascular: Denies chest pain and Denies dyspnea Respiratory Respiratory: Denies cough and Denies dyspnea Gastrointestinal Gastrointestinal: Denies abdominal pain, Denies nausea and Denies vomiting Genitourinary Genitourinary: Denies dysuria Neurologic Neurologic: Denies loss of vision and Denies weakness PFSH All Active Problems (Updated 02/20/22 @ 06:17 by Slick Sabillon MD) Diabetic foot infection (Acute) SIRS (systemic inflammatory response syndrome) (Acute) Leg wound, left (Acute) Diabetic retinopathy (Acute ~12/2021) B/L MODERATE-01/17 Edema (Acute) Gout (Chronic) 08/2021-diagnosed by rheumatology at [facility]-probable gout tophi of hands Obesity (Chronic) Diabetes mellitus type 2, insulin dependent (Acute) with nephropathy Chronic kidney disease (CKD) (Chronic) 08/2021- Cr 1.7 Hand arthritis (Acute) Amputation of toe (Acute) Cellulitis of foot, right (Acute) Diabetes mellitus type 2, insulin dependent (Acute) Right heart failure (Acute) Diabetic peripheral neuropathy (Chronic) Diabetic peripheral angiopathy (Chronic) Hypertension (Chronic) Chronic pain syndrome (Chronic) low back pain, drug contract at [facility]-V PMS and drug screen on 08/1221-patient on chronic hydrocodone Coronary artery disease involving [place] coronary artery of [place] heart with unstable angina pectoris (Chronic 08/30/17) 08-24-2017 [facility] [place] cardiac CATH: 3 vessel disease (LAD,LCx and RCA): coronary bypass sx pending Dyspnea on exertion (Chronic 12/16/13) negative nuclear stress test echocardiogram: normal/ EF 65%/no valvulopathy Cardiol.eval. : not ischemia related ([facility]) Peripheral autonomic neuropathy in disorders classified elsewhere (Chronic 09/15/14) Hyperlipidemia (Chronic) Medical History Congestive heart failure Diabetic foot ulcer DM (diabetes mellitus) 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 secondary to diabetic ulcer, angiopathy Laceration of lower leg with foreign body Lymphedema Obesity Proliferative diabetic retinopathy of both eyes without macular edema associated with diabetes mellitus due to underlying condition (01/18/18) 01/18/18-[facility] [place] 01/31/19-[facility] [place] Scrotal hematoma (07/26/14) A. S/p hydrocelectomy 07/24/14 Stroke (~2008) TIA (transient ischemic attack) Surgical History H/O surgical procedure A. Hydrocelectomy 07/24/2014 History of cataract removal with insertion of prosthetic lens History of hydrocelectomy (07/24/14) right S/P CABG x 3 (08/30/17[place] [facility] [place] : no fup needed Family History Mother No problems noted. Father Diabetes Myocardial infarction Heart disease Sister Diabetes Social History Smoking/Tobacco Use Status: Former Tobacco Use Quit Date: 09/28/83 Tobacco: How many years used: 5 Smoking risk assessment performed?: Yes Alcohol Intake: never Drug use: Never Substance use type: does not use Pets and animals: Yes Pets and animals: cat(s) and dog(s) What type of physical activity do you participate in: none Do you feel safe in your relationship?: Yes Exam Const General: no acute distress Orientation: alert HENMT Head: normal to inspection Ears: external ears normal General nose exam: external nose normal Mouth: moist mucous membranes Eyes General: appearance normal, both eyes and all related structures Neck Neck: normal visual inspection Resp Effort & Inspection: normal respiratory effort and able to speak in complete sentences Cardio Rate: regular rate Skin General skin exam: erythema Neuro General: patient alert and patient oriented x3 Extrem General: full ROM Psych Mental Status: mental status grossly normal Course Vital Signs Vital signs: Vital Signs Temperature 38.2 C H 02/20/22 05:09 Pulse 72 02/20/22 05:09 Respiratory Rate 20 02/20/22 05:09 Blood Pressure 117/37 L 02/20/22 05:09 Pulse Oximetry 98 02/20/22 05:09 Temperature 38.2 C H 02/20/22 05:09 Pulse 72 02/20/22 05:09 Respiratory Rate 20 02/20/22 05:09 Blood Pressure 117/37 L 02/20/22 05:09 Pulse Oximetry 98 02/20/22 05:09 Pain Level 9 02/20/22 05:09 Lab/Test Results Lab/Test Results: 02/20/22 05:16 Blood Blood Culture - Pending 02/20/22 05:16 Blood Blood Culture - Pending
[2022-02-20 05:35] LABS: Abs Immature Grans 0.06 10^3/uL (0.0-0.06); Absolute Basophil Count 0.03 10^3/uL (0.0-0.2); Absolute Lymphocyte Count 0.63 10^3/uL (1.2-3.4); Absolute Monocyte Count 1.48 10^3/uL (0.1-0.8); Absolute Neutrophil Count 14.33 10^3/uL (1.2-6.7); Basophils % 0.2; Eosinophils % 0.5; HGB 11.3 g/dL (13.5-17.5); Immature Grans % 0.4; Lymphocytes % 3.8; MCHC 33.2 % (32.0-36.0); MCV 90 fL (80-95); Monocytes % 8.9; Neutrophils % 86.2; Platelet Count 127 10^3/uL (130-400); RBC 3.77 10^6/uL (4.36-5.78); RDW 14.1 % (11.8-14.1); RDW-SD 46.5 fL; WBC 16.62 10^3/uL (4.4-10.8)
[2022-02-20 05:46] LABS: Absolute Eosinophil Count 0.08 10^3/uL (0.0-0.7)
[2022-02-20 06:00] LABS: ALT 25 U/L (16-63); AST 20 U/L (15-37); Albumin 3.9 g/dL (3.4-5.0); Alkaline Phosphatase 89 U/L (46-116); Bilirubin, Total 0.9 mg/dL (0.2-1.0); C-Reactive Protein 9.71 mg/dL (0.0-0.3); CREATININE 2.8 mg/dL (0.70-1.30); Calcium 8.9 mg/dL (8.5-10.1); Chloride 97 mmol/L (98-107); Estimated GFR 22.79 (mL/min/1.73m2); Glucose 98 mg/dL (74-106); Magnesium 2.1 mg/dL (1.8-2.4); Potassium 4.6 mmol/L (3.5-5.1); Sodium 133 mmol/L (136-145); Total Protein 7.3 g/dL (6.4-8.2)
[2022-02-20 06:01] LABS: BUN 92 mg/dL (7-18)
[2022-02-20 06:18] LABS: Procalcitonin 0.3 ng/mL
--- NOTE | 2022-02-20 06:18 | DI.VRAD_ITS ---
PROCEDURE INFORMATION: Exam: XR Left Foot Exam date and time: 02/20/2022 5:49 AM Age: 67 years old Clinical indication: Other: Cellulitis; Prior surgery; Surgery date: 6+ months; Surgery type: 5th digit removed TECHNIQUE: Imaging protocol: XR Left foot. Views: 3 or more views. COMPARISON: MRI - L LOWER EXT WO AND W CON 09/10/2015 4:55 PM FINDINGS: Bones/joints: Partial 5th toe amputation.Sclerosis and mild hyperostosis/periostitis in the stump appears chronic.Degenerative changes at bases of the the metatarsals. No acute fracture or dislocation Soft tissues: Swelling over the lateral aspect of the foot. No radiopaque foreign body or subcutaneous gas Vascular calcifications. IMPRESSION: Lateral swelling as described in keeping with the given clinical history of cellulitis. There is no subcutaneous gas or radiopaque foreign body Chronic appearing findings in the 5th digit stump Dictated and Authenticated by: Brice Workman MD. Ordering:GRACIELA Kruger MD
[2022-02-20 06:19] LABS: COVID-19 PCR Negative (Negative); Influenza A PCR Negative (Negative); Influenza B PCR Negative (Negative); RSV PCR Negative (Negative)
[2022-02-20 06:30] LABS: Source Nasopharynx
[2022-02-20] MEDS: VANCOMYCIN 1,000 MG in Normal Saline 250 ML 166.6666 MG IVPB (06:35)
[2022-02-20 06:57] VITALS: BP 131/51; PULSE 71; RESP 18; TEMP 36.1; O2SAT 97
[2022-02-20 07:00] VITALS: BP 153/67; PULSE 70; RESP 21; TEMP 36.7; O2SAT 94
--- NOTE | 2022-02-20 08:30 | HPE_ITS ---
Assessment and Plan Assessment and plan (1) Diabetic foot infection: Status: Acute Assessment and plan: An x-ray of the foot does not show any abnormality. Clinically the toe does not look too bad. I have asked for a podiatry consult. (2) SIRS (systemic inflammatory response syndrome): Status: Acute Assessment and plan: His CRP is elevated. I will follow-up with blood count and metabolic panel tomorrow. He does not appear too sick overall. (3) Cellulitis: Status: Acute Assessment and plan: He was started on vancomycin in the emergency department. Blood cultures were done. He is getting ultrasound of the left lower extremity to rule out DVT or abscess. I will start him on metronidazole and cefepime as recommended by up-to-date for his diabetic cellulitis. History of Present Illness History of Present Illness Chief Complaint: chills and left leg pain/swelling Narrative: This 67-year-old male is here because of swelling, discomfor and of his left lower leg, and chills. He has been treated with 2 courses of clindamycin for his left lower extremity infection that involved his left great toe. He has seen podiatry as well as his primary care office. He said his problem started few weeks ago with an infection of his left lower gomez as well as left great toe. He finished up antibiotic yesterday and says he saw Dr. Nascimento yesterday for follow-up. Last night his discomfort increased and he was chilled even though he said he was in the sun yesterday afternoon. He had increasing difficulty walking because of pain in the left calf. He had been scheduled for an ultrasound of the right calf. He is also had some nausea but no vomiting. He has chronic medical problems that include diabetes mellitus, coronary artery disease, heart failure diabetes mellitus. He also has chronic pain. Review of Systems Constitutional Constitutional: Reports chills and Denies fever(s) Cardiovascular Cardiovascular: Denies chest pain, Denies rapid heart rate, Reports pedal edema, Denies leg edema, Denies radiating jaw, neck or arm pain and Denies dyspnea Respiratory Respiratory: Denies cough and Denies dyspnea Gastrointestinal Gastrointestinal: Denies abdominal pain, Denies heartburn, Reports nausea and Denies vomiting Genitourinary Genitourinary: Denies difficulty urinating and Denies dysuria Musculoskeletal Musculoskeletal: Reports abnormal gait Neurologic Neurologic: Denies abnormal speech, Reports abnormal gait and Denies paresthesias [facility] All Active Problems (Updated 02/20/22 @ 08:42 by Bereket Kinney MD) Cellulitis (Acute) Diabetic foot infection (Acute) SIRS (systemic inflammatory response syndrome) (Acute) Leg wound, left (Acute) Diabetic retinopathy (Acute ~12/2021) B/L MODERATE-01/17 Edema (Acute) Gout (Chronic) 08/2021-diagnosed by rheumatology at [facility]-probable gout tophi of hands Obesity (Chronic) Diabetes mellitus type 2, insulin dependent (Acute) with nephropathy Chronic kidney disease (CKD) (Chronic) 08/2021- Cr 1.7 Hand arthritis (Acute) Amputation of toe (Acute) Cellulitis of foot, right (Acute) Diabetes mellitus type 2, insulin dependent (Acute) Right heart failure (Acute) Diabetic peripheral neuropathy (Chronic) Diabetic peripheral angiopathy (Chronic) Hypertension (Chronic) Chronic pain syndrome (Chronic) low back pain, drug contract at [facility]-V PMS and drug screen on 08/1221-patient on chronic hydrocodone Coronary artery disease involving [place] coronary artery of [place] heart with unstable angina pectoris (Chronic 08/30/17) 08-24-2017 [facility] [place] cardiac CATH: 3 vessel disease (LAD,LCx and RCA): coronary bypass sx pending Dyspnea on exertion (Chronic 12/16/13) negative nuclear stress test echocardiogram: normal/ EF 65%/no valvulopathy Cardiol.eval. : not ischemia related ([facility]) Peripheral autonomic neuropathy in disorders classified elsewhere (Chronic 09/15/14) Hyperlipidemia (Chronic) Medical History Congestive heart failure Diabetic foot ulcer DM (diabetes mellitus) 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 secondary to diabetic ulcer, angiopathy Laceration of lower leg with foreign body Lymphedema Obesity Proliferative diabetic retinopathy of both eyes without macular edema associated with diabetes mellitus due to underlying condition (01/18/18) 01/18/18-[facility] [place] 01/31/19-[facility] [place] Scrotal hematoma (07/26/14) A. S/p hydrocelectomy 07/24/14 Stroke (~2008) TIA (transient ischemic attack) Surgical History H/O surgical procedure A. Hydrocelectomy 07/24/2014 History of cataract removal with insertion of prosthetic lens History of hydrocelectomy (07/24/14) right S/P CABG x 3 (08/30/17) [facility] [place] 08-29-2017 : no fup needed Family History Mother No problems noted. Father Diabetes Myocardial infarction Heart disease Sister Diabetes Social History Smoking/Tobacco Use Status: Former Tobacco Use Quit Date: 09/28/83 Tobacco: How many years used: 5 Smoking risk assessment performed?: Yes Alcohol Intake: never Drug use: Never Substance use type: does not use Pets and animals: Yes Pets and animals: cat(s) and dog(s) What type of physical activity do you participate in: none Do you feel safe at home: Yes Do you feel safe in your relationship?: Yes Meds Allergies and Home Medications Allergies Allergy/AdvReac Type Severity Reaction Status Date / Time cephalexin monohydrate Allergy Severe SOB Verified 02/20/22 05:14 [From Keflex] Penicillins Allergy Unknown Verified 02/20/22 05:14 Home Medications Medication Instructions Recorded Confirmed Type insulin syringe-needle U-100 1 mL ##3 10/14/16 02/20/22 History 26 x 1/2 (BD Insulin Syringe) inhalational spacing device #1 unit 03/15/18 02/20/22 Rx (Aerochamber Plus Flow-Vu) blood-glucose meter (FreeStyle ##1 05/21/18 02/20/22 Rx Lite Meter kit) blood sugar diagnostic (FreeStyle #400 strips 09/15/19 02/20/22 Rx Lite Strips) acetaminophen 500 mg tablet 1,000 mg PO Q6H PRN 06/14/20 02/20/22 History multivitamin 1 tab PO DAILY 06/14/20 02/20/22 History bupropion HCl 150 mg 24 hr tablet, 150 mg PO QAM #90 tabs 01/21/21 02/20/22 Rx extended release insulin glargine 100 unit/mL (3 50 unit (0.5 mL) subcut BID #15 mL 03/19/21 02/20/22 Rx mL) subcutaneous pen (Basaglar KwikPen U-100 Insulin) flash glucose scanning reader #1 ea 04/09/21 02/20/22 Rx (FreeStyle Alfredo 2 Latimer) flash glucose sensor (FreeStyle #2 ea 04/09/21 02/20/22 Rx Alfredo 2 Sensor kit) needle (disp) 21 G 21 gauge x 1 #100 ea 04/12/21 02/20/22 Rx 1/2 (BD Regular Bevel [place]) clopidogrel 75 mg tablet 75 mg PO DAILY #90 tabs 05/28/21 02/20/22 Rx aspirin 81 mg tablet,delayed 81 mg PO DAILY 08/12/21 02/20/22 History release (Adult Aspirin Regimen) pen needle, diabetic 31 gauge x #100 ea 08/15/21 02/20/22 Rx 5/16 (BD Ultra-Fine Short Pen Needle) lisinopril 5 mg tablet 5 mg PO DAILY #90 tabs 09/03/21 02/20/22 Rx carvedilol 25 mg tablet 25 mg PO BID #180 tabs 10/16/21 02/20/22 Rx nitroglycerin 0.4 mg sublingual 0.4 mg sublingual Q5-15M PRN chest 11/27/21 02/20/22 Rx tablet pain #25 tabs rosuvastatin 40 mg tablet See Rx Instructions .Route 11/27/21 02/20/22 Rx .COMPLEX #90 tabs triamcinolone acetonide 0.5 % 1 applic topical BID PRN 11/27/21 02/20/22 Rx topical ointment dermatitis #80 grams hydrocodone 7.5 mg-acetaminophen 1 tab PO BID PRN back pain #56 tabs 12/09/21 02/20/22 Rx 325 mg tablet pregabalin 150 mg capsule 150 mg PO TID #90 caps 12/10/21 02/20/22 Rx furosemide 40 mg tablet 40 mg PO DAILY 01/31/22 02/20/22 History insulin aspart U-100 100 unit/mL 30 unit (0.3 mL) subcut AC #70 mL 02/07/22 02/20/22 Rx (3 mL) subcutaneous pen (Novolog Flexpen U-100 Insulin aspart) Exam Const General: cooperative, comfortable, no acute distress, not ill appearing, does not appear intoxicated and not lethargic Nutritional Appearance: obese Orientation: alert, awake and oriented x3 Neck Neck: normal visual inspection, no lymphadenopathy, no meningeal signs and no JVD Resp Effort & Inspection: normal respiratory effort and able to speak in complete sentences Auscultation: clear to auscultation bilaterally, no rales, no rhonchi and no wheezes Cardio Rate: regular rate Rhythm: regular rhythm Heart Sounds: S1 normal, S2 normal, no gallops and no murmurs GI Inspection: normal to inspection Palpation: soft, no hepatosplenomegaly and tender Neuro Cranial Nerves: CN's II-XI intact bilaterally Speech: speech normal Extrem Left lower extremity: no edema Other: There is erythema and tenderness and swelling of the left lower extremity up to the mid calf. There is a ulcer of the left great toe on the plantar surface with mild surrounding erythema but overall does not appear to be too infected. There is no palpable abscess of the left calf. Results Labs Result diagrams: 02/20/22 05:29 02/20/22 05:29 Labs: Laboratory Results - last 24 hr 02/20/22 02/20/22 02/20/22 05:29 05:29 05:29 WBC RBC Hgb Hct MCV MCH MCHC RDW Plt Count MPV Immature Gran % Neutrophils % Lymphocytes % Monocytes % Eosinophils % Basophils % Nucleated RBC % Absolute Neutrophils Absolute Lymphocytes Absolute Monocytes Absolute Eosinophils Absolute Basophils VBG Lactate 1.0 Sodium 133 L Potassium 4.6 Chloride 97 L Carbon Dioxide 27.0 Anion Gap 9.0 BUN 92 H* Creatinine 2.8 H Estimated GFR/1.73 m2 22.79 Glucose 98 Calcium 8.9 Magnesium 2.1 Total Bilirubin 0.9 AST 20 ALT 25 Alkaline Phosphatase 89 C-Reactive Protein 9.71 H Total Protein 7.3 Albumin 3.9 Procalcitonin 0.3 COVID-19 Source Nasopharynx SARS-CoV-2 (PCR) Negative Influenza Type A (PCR) Negative Influenza Type B (PCR) Negative RSV (PCR) Negative 02/20/22 05:29 WBC 16.62 H RBC 3.77 L Hgb 11.3 L Hct 34.0 L MCV 90 MCH 30.0 MCHC 33.2 RDW 14.1 Plt Count 127 L MPV 11.0 Immature Gran % 0.4 Neutrophils % 86.2 Lymphocytes % 3.8 Monocytes % 8.9 Eosinophils % 0.5 Basophils % 0.2 Nucleated RBC % 0.0 Absolute Neutrophils 14.33 H Absolute Lymphocytes 0.63 L Absolute Monocytes 1.48 H Absolute Eosinophils 0.08 Absolute Basophils 0.03 VBG Lactate Sodium Potassium Chloride Carbon Dioxide Anion Gap BUN Creatinine Estimated GFR/1.73 m2 Glucose Calcium Magnesium Total Bilirubin AST ALT Alkaline Phosphatase C-Reactive Protein Total Protein Albumin Procalcitonin COVID-19 Source SARS-CoV-2 (PCR) Influenza Type A (PCR) Influenza Type B (PCR) RSV (PCR) Last Vital Signs Temp 36.7 C 02/20/22 07:00 Pulse 70 02/20/22 07:00 Resp 21 02/20/22 07:00 BP 153/67 H 02/20/22 07:00 Pulse Ox 94 02/20/22 07:00
[2022-02-20] MEDS: Carvedilol 25 MG TAB PO ×2 (09:05→20:05)
[2022-02-20] MEDS: Clopidogrel 75 MG TAB PO (09:05)
[2022-02-20] MEDS: Aspirin E.C. 81 MG TABEC PO (09:05)
[2022-02-20] MEDS: Multivitamin TAB 1 TAB PO (09:05)
[2022-02-20] MEDS: Furosemide 40 MG TAB PO (09:05)
[2022-02-20] MEDS: Insulin Glargine 300 UNITS/3 ML PEN 50 UNITS SC ×2 (09:22→22:48)
[2022-02-20] MEDS: metroNIDAZOLE 500 MG/100 ML BAG 100 MG IVPB ×2 (09:23→16:46)
[2022-02-20] MEDS: Lisinopril 5 MG TAB PO (09:58)
[2022-02-20] MEDS: Pregabalin 50 MG CAP 150 MG PO ×2 (10:22→20:06)
[2022-02-20] MEDS: CEFEPIME 2 GM in Normal Saline 100 ML IVPB ×2 (10:34→22:59)
[2022-02-20 11:33] VITALS: BP 154/73; PULSE 68; RESP 18; TEMP 36.6; O2SAT 98
[2022-02-20] MEDS: Insulin Aspart 300 UNITS/3 ML PEN 30 UNITS SC ×2 (12:07→16:56)
[2022-02-20] MEDS: Insulin Aspart 300 UNITS/3 ML PEN SC ×2 (12:08→16:57)
--- NOTE | 2022-02-20 12:31 | POCOE_ITS ---
Date of service: 02/20/22 Time of Service: 11:31 History of Present Illness History of Present Illness Chief Complaint: Pain and swelling left leg with progressive weakness Narrative: Bereket is a 67-year-old white male well-known to me from the office setting who is been recently treated for venous stasis ulcerations of his left leg and a chronic diabetic ulcer of his left hallux. He healed the venous stasis ulcers and utilizing Unna boot compression wraps without difficulty and has made significant gains in reducing the left hallux ulceration. Yesterday during an office visit he complained of increasing soreness when he woke up in the morning on the lateral and posterior side of his left. He has chronic swelling in this leg, no cords were identified but he was set up for a venous Doppler study to rule out DVT. There was no active signs of infection at that time. He apparently went home and during the course of the day deteriorated with progressive weakness feeling hot and shaky and he presented to the emergency department where he was admitted. He is seen in his room resting comfortably. He is fully awake and alert and states that his legs feeling better already. [facility] All Active Problems (Updated 02/20/22 @ 08:42 by Bereket Kinney MD) Cellulitis (Acute) Diabetic foot infection (Acute) SIRS (systemic inflammatory response syndrome) (Acute) Leg wound, left (Acute) Diabetic retinopathy (Acute ~12/2021) B/L MODERATE-01/17 Edema (Acute) Gout (Chronic) 08/2021-diagnosed by rheumatology at [facility]-probable gout tophi of hands Obesity (Chronic) Diabetes mellitus type 2, insulin dependent (Acute) with nephropathy Chronic kidney disease (CKD) (Chronic) 08/2021- Cr 1.7 Hand arthritis (Acute) Amputation of toe (Acute) Cellulitis of foot, right (Acute) Diabetes mellitus type 2, insulin dependent (Acute) Right heart failure (Acute) Diabetic peripheral neuropathy (Chronic) Diabetic peripheral angiopathy (Chronic) Hypertension (Chronic) Chronic pain syndrome (Chronic) low back pain, drug contract at [facility]-V PMS and drug screen on 08/1221-patient on chronic hydrocodone Coronary artery disease involving [place] coronary artery of [place] heart with unstable angina pectoris (Chronic 08/30/17) 08-24-2017 [facility] [place] cardiac CATH: 3 vessel disease (LAD,LCx and RCA): coronary bypass sx pending Dyspnea on exertion (Chronic 12/16/13) negative nuclear stress test echocardiogram: normal/ EF 65%/no valvulopathy Cardiol.eval. : not ischemia related ([facility]) Peripheral autonomic neuropathy in disorders classified elsewhere (Chronic 09/15/14) Hyperlipidemia (Chronic) Medical History Congestive heart failure Diabetic foot ulcer DM (diabetes mellitus) 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 secondary to diabetic ulcer, angiopathy Laceration of lower leg with foreign body Lymphedema Obesity Proliferative diabetic retinopathy of both eyes without macular edema associated with diabetes mellitus due to underlying condition (01/18/18) 01/18/18-[facility] [place] 01/31/19-[facility] [place] Scrotal hematoma (07/26/14) A. S/p hydrocelectomy 07/24/14 Stroke (~2008) TIA (transient ischemic attack) Surgical History H/O surgical procedure A. Hydrocelectomy 07/24/2014 History of cataract removal with insertion of prosthetic lens History of hydrocelectomy (07/24/14) right S/P CABG x 3 (08/30/17) [facility] [place] 08-29-2017 : no fup needed Family History Mother No problems noted. Father Diabetes Myocardial infarction Heart disease Sister Diabetes Social History Smoking/Tobacco Use Status: Former Tobacco Use Quit Date: 09/28/83 Tobacco: How many years used: 5 Smoking risk assessment performed?: Yes Alcohol Intake: never Drug use: Never Substance use type: does not use Pets and animals: Yes Pets and animals: cat(s) and dog(s) What type of physical activity do you participate in: none Do you feel safe at home: Yes Do you feel safe in your relationship?: Yes Exam Narrative Exam Narrative: Physical examination: Bereket has moderate to severe arterial vascular disease both lower extremities. He has had vascular interventions previously performed at [facility] vascular department. He has undergone amputation of his left fifth ray and right great toe due to diabetic ulcers, osteomyelitis and failure to thrive. He is also showing signs of progressive renal disease and was recently evaluated at [facility]. Left lower extremity remains moderately edematous which is his baseline. The venous stasis ulcers on the anterior and anterior medial and posterior aspect of his left leg remains closed. The overlying skin is thin and fragile in appearance but there is no drainage and no active signs of infection. He has a partial-thickness wound on the plantar and medial aspect of his left hallux at the base of the distal phalanx. Radiographs performed in my office and repeated here at the hospital yesterday are negative for signs of osteomyelitis. This wound has closed about 50-50 percent since I been treating him over the last few weeks. There is no active sign of infection at this level. Further evaluation of his legs failed to detect any fluid accumulations nor any active infective process. The ultrasound he had performed this morning was negative for DVTs negative for soft tissue abscesses. He does identify soft tissue swelling. I reviewed his lab work, and noted increased CRP. Impressions: Diabetic ulceration left hallux as above Venous stasis disease left lower extremity, venous stasis ulcers currently closed moderate to severe arterial disease both lower extremities poorly controlled diabetes with neuropathy Plan: Bereket is currently in house receiving bed rest elevation of his left lower extremity IV antibiotics consisting of cefepime and Flagyl. Discussed the case with the hospitalist as well as the wound care nurse and will utilize collagen to the great toe wound on a daily basis. I believe Bereket will continue to improve through medical management consisting of antibiotics and bedrest, local wound care and I doing well. Trouble good man will be happy to reevaluate if his clinical condition change. I did not see this as being a surgical issue at this time. Thank you Results Last Vital Signs Temp 36.6 C 02/20/22 11:33 Pulse 68 02/20/22 11:33 Resp 18 02/20/22 11:33 BP 154/73 H 02/20/22 11:33 Pulse Ox 98 02/20/22 11:33 Labs Result diagrams: 02/20/22 05:29 02/20/22 05:29 Labs: Laboratory Results - last 24 hr 02/20/22 02/20/22 02/20/22 05:29 05:29 05:29 WBC RBC Hgb Hct MCV MCH MCHC RDW Plt Count MPV Immature Gran % Neutrophils % Lymphocytes % Monocytes % Eosinophils % Basophils % Nucleated RBC % Absolute Neutrophils Absolute Lymphocytes Absolute Monocytes Absolute Eosinophils Absolute Basophils VBG Lactate 1.0 Sodium 133 L Potassium 4.6 Chloride 97 L Carbon Dioxide 27.0 Anion Gap 9.0 BUN 92 H* Creatinine 2.8 H Estimated GFR/1.73 m2 22.79 Glucose 98 Calcium 8.9 Magnesium 2.1 Total Bilirubin 0.9 AST 20 ALT 25 Alkaline Phosphatase 89 C-Reactive Protein 9.71 H Total Protein 7.3 Albumin 3.9 Procalcitonin 0.3 COVID-19 Source Nasopharynx SARS-CoV-2 (PCR) Negative Influenza Type A (PCR) Negative Influenza Type B (PCR) Negative RSV (PCR) Negative 02/20/22 05:29 WBC 16.62 H RBC 3.77 L Hgb 11.3 L Hct 34.0 L MCV 90 MCH 30.0 MCHC 33.2 RDW 14.1 Plt Count 127 L MPV 11.0 Immature Gran % 0.4 Neutrophils % 86.2 Lymphocytes % 3.8 Monocytes % 8.9 Eosinophils % 0.5 Basophils % 0.2 Nucleated RBC % 0.0 Absolute Neutrophils 14.33 H Absolute Lymphocytes 0.63 L Absolute Monocytes 1.48 H Absolute Eosinophils 0.08 Absolute Basophils 0.03 VBG Lactate Sodium Potassium Chloride Carbon Dioxide Anion Gap BUN Creatinine Estimated GFR/1.73 m2 Glucose Calcium Magnesium Total Bilirubin AST ALT Alkaline Phosphatase C-Reactive Protein Total Protein Albumin Procalcitonin COVID-19 Source SARS-CoV-2 (PCR) Influenza Type A (PCR) Influenza Type B (PCR) RSV (PCR)
[2022-02-20 15:00] VITALS: BP 149/56; PULSE 62; RESP 18; TEMP 35.9; O2SAT 97
[2022-02-20] MEDS: Normal Saline 1,000 ML 150 ML IV (16:47)
--- NOTE | 2022-02-20 17:08 | CHAPLAIN ---
Bereket was sitting up on the edge of his bed when I visited. He said he is feeling better. I explained my role and offer support. He was not interested in a longer visit.
--- NOTE | 2022-02-20 18:45 | INITIAL_ITS ---
- If Service Date Differs Date of service: 02/20/22 Time of Service: 18:45 Care Management Initial Assess REASON FOR HOSPITALIZATION:: Diabetic Foot Infection PAST MEDICAL HISTORY/PAST SURGICAL HISTORY:: Cellulitis (Acute). Diabetic foot infection (Acute). SIRS (systemic inflammatory response syndrome) (Acute). Leg wound, left (Acute). Diabetic retinopathy (Acute ~12/2021). B/L MODERATE-01/17. Edema (Acute). Gout (Chronic). 08/2021-diagnosed by rheumatology at [facility]-probable gout tophi of hands. Obesity (Chronic). Diabetes mellitus type 2, insulin dependent (Acute). with nephropathy. Chronic kidney disease (CKD) (Chronic). 08/2021- Cr 1.7. Hand arthritis (Acute). Amputation of toe (Acute). Cellulitis of foot, right (Acute). Diabetes mellitus type 2, insulin dependent (Acute). Right heart failure (Acute). Diabetic peripheral neuropathy (Chronic). Diabetic peripheral angiopathy (Chronic). Hypertension (Chronic). Chronic pain syndrome (Chronic). low back pain, drug contract at [facility]-V PMS and drug screen on 08/1221-patient on chronic hydrocodone. Coronary artery disease involving [place] coronary artery of [place] heart with unstable angina pectoris (Chronic 08/30/17). [place] [facility] [place]: 3 vessel disease (LAD,LCx and RCA): coronary bypass sx pending. Dyspnea on exertion (Chronic 12/16/13). negative nuclear stress test . echocardiogram: normal/ EF 65%/no valvulopathy. Cardiol.eval. : not ischemia related ([facility]). Peripheral autonomic neuropathy in disorders classified elsewhere (Chronic 09/15/14). Hyperlipidemia (Chronic). Medical History . Congestive heart failure. Diabetic foot ulcer. DM (diabetes mellitus). 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. secondary to diabetic ulcer, angiopathy. Laceration of lower leg with foreign body. Lymphedema. Obesity. Proliferative diabetic retinopathy of both eyes without macular edema associated with diabetes mellitus due to underlying condition (01/18/18). [place] [place] [place] Scrotal hematoma (07/26/14). A. S/p hydrocelectomy 07/24/14. Stroke (~2008). TIA (transient ischemic attack). Surgical History . H/O surgical procedure. A. Hydrocelectomy 07/24/2014. History of cataract removal with insertion of prosthetic lens. History of hydrocelectomy (07/24/14). right. S/P CABG x 3 (08/30/17). [facility] [place] 08-29-2017 : no fup needed PREVIOUS FUNCTIONAL STATUS/SOCIAL/FAMILY SUPPORTS:: Bereket lives in a single family home in [place] with his Richardson. They have 5 children and 14 grandchildren. 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 He uses a stick when needed for ambulatory assistance and does not receive any community services. CURRENT FUNCTIONAL STATUS:: Bereket was sitting up in bed when CM met with him. He shared that this is not the first time he has had a foot infection and has had osteomyelitis in the past. He informed CM that he hopes to be discharged within a few days but knows that may not happen. He has required detention IV antibiotics in the past and has had home infusion services. he stated that he is familiar with the options for detention IVAB therapy but hopes that it won't be necessary. ADVANCE DIRECTIVES:: Bereket does not have ADs and is not interested Has patient been provided with info about the portal/API?: Yes Did the patient sign up for the portal?: Yes (previously) CODE STATUS:: Full Code INSURANCE COVERAGE / FINANCIAL ISSUES:: medicare CURRENT HOME/COMMUNITY SERVICES/EQUIPMENT:: none PRIMARY CARE PHYSICIAN:: Jarrod Schultz POTENTIAL DISCHARGE NEEDS:: follow up with Podiatry, PCP and plan of care PATIENT/FAMILY EDUCATION NEEDS:: Review of discharge instructions, limitations, follow up plan, medications, diet and discuss Ask Me Three. TRANSPORTATION:: via private vehicle with family PLAN:: Bereket will likely be discharged home when medically cleared by provider. It is possible he may need detention IVAB and may require home health nursing support. He will follow up with his commmunity providers and plan of care and transport with family. CM will continue to support Bereket and assess for ongoing discharge concerns.
--- NOTE | 2022-02-20 19:49 | W.PM.PROGNOT ---
Date of Service Date of service: 02/20/22 Time of Service: 18:49 Subjective Subjective Interval history since last seen: I saw Mr Kelton in a brief follow up. He reports his calf is in pain and he would like some tylenol. Otherwise, no complaints. I have discussed the case with Dr Mccauley who feels that the toe looks good - it is the LLE cellulitis that is probably the patient's problem. His venous doppler was negative. Continue empiric vancomycin/cefepime/flagyl. Objective Last Vital Signs Temp 35.9 C L 02/20/22 15:00 Pulse 62 02/20/22 15:00 Resp 18 02/20/22 15:00 BP 149/56 H 02/20/22 15:00 Pulse Ox 97 02/20/22 15:00 Laboratory Results - last 24 hr 02/20/22 02/20/22 02/20/22 05:29 05:29 05:29 WBC RBC Hgb Hct MCV MCH MCHC RDW Plt Count MPV Immature Gran % Neutrophils % Lymphocytes % Monocytes % Eosinophils % Basophils % Nucleated RBC % Absolute Neutrophils Absolute Lymphocytes Absolute Monocytes Absolute Eosinophils Absolute Basophils VBG Lactate 1.0 Sodium 133 L Potassium 4.6 Chloride 97 L Carbon Dioxide 27.0 Anion Gap 9.0 BUN 92 H* Creatinine 2.8 H Estimated GFR/1.73 m2 22.79 Glucose 98 Calcium 8.9 Magnesium 2.1 Total Bilirubin 0.9 AST 20 ALT 25 Alkaline Phosphatase 89 C-Reactive Protein 9.71 H Total Protein 7.3 Albumin 3.9 Procalcitonin 0.3 COVID-19 Source Nasopharynx SARS-CoV-2 (PCR) Negative Influenza Type A (PCR) Negative Influenza Type B (PCR) Negative RSV (PCR) Negative 02/20/22 05:29 WBC 16.62 H RBC 3.77 L Hgb 11.3 L Hct 34.0 L MCV 90 MCH 30.0 MCHC 33.2 RDW 14.1 Plt Count 127 L MPV 11.0 Immature Gran % 0.4 Neutrophils % 86.2 Lymphocytes % 3.8 Monocytes % 8.9 Eosinophils % 0.5 Basophils % 0.2 Nucleated RBC % 0.0 Absolute Neutrophils 14.33 H Absolute Lymphocytes 0.63 L Absolute Monocytes 1.48 H Absolute Eosinophils 0.08 Absolute Basophils 0.03 VBG Lactate Sodium Potassium Chloride Carbon Dioxide Anion Gap BUN Creatinine Estimated GFR/1.73 m2 Glucose Calcium Magnesium Total Bilirubin AST ALT Alkaline Phosphatase C-Reactive Protein Total Protein Albumin Procalcitonin COVID-19 Source SARS-CoV-2 (PCR) Influenza Type A (PCR) Influenza Type B (PCR) RSV (PCR)
[2022-02-20 19:59] VITALS: PULSE 66; RESP 20; TEMP 36.6; O2SAT 97
[2022-02-20] MEDS: ROSUVASTATIN 20 MG TAB 40 MG PO (20:05)
[2022-02-20] MEDS: Acetaminophen 500 MG TAB 1000 MG PO (20:06)
[2022-02-20] MEDS: Normal Saline Flush 10 ML SYR IVP (22:59)
[2022-02-21] MEDS: metroNIDAZOLE 500 MG/100 ML BAG 100 MG IVPB ×2 (00:59→08:31)
[2022-02-21] MEDS: Normal Saline 500 ML IV (00:59)
[2022-02-21 01:00] VITALS: BP 102/65; PULSE 60; RESP 16; TEMP 36.6; O2SAT 96
[2022-02-21 05:03] LABS: Bilirubin Negative (Negative); Blood Trace-intact (Negative); Clarity Clear (Clear); Glucose Negative (Negative); Ketones Negative (Negative); Leukocyte Esterase Negative (Negative); Nitrite Negative (Negative); Urobilinogen 0.2 EU/dL (Up TO 0.2)
[2022-02-21 05:07] LABS: C & S Indicated? C&S Done As Ordered
[2022-02-21 05:11] LABS: Bacteria Rare HPF (Negative); Casts 0-2 Hyaline LPF (Negative); Crystals Negative HPF (Negative); Epithelial Cells Rare HPF (Negative); Mucus Trace (Negative); Other Cells Rare Renal (Negative); RBC 0-2 HPF (0-2)
[2022-02-21 06:45] VITALS: BP 155/68; PULSE 65; RESP 18; TEMP 36.6; O2SAT 96
[2022-02-21] MEDS: VANCOMYCIN/WATER (PEG) 1 GM/200 ML BAG IV (06:51)
[2022-02-21] MEDS: Normal Saline Flush 10 ML SYR IVP ×2 (06:51→10:20)
[2022-02-21 07:00] VITALS: BP 146/77; PULSE 67; RESP 19; TEMP 36.6; O2SAT 96
[2022-02-21 07:34] LABS: Abs Immature Grans 0.03 10^3/uL (0.0-0.06); Absolute Basophil Count 0.02 10^3/uL (0.0-0.2); Absolute Eosinophil Count 0.23 10^3/uL (0.0-0.7); Absolute Lymphocyte Count 0.58 10^3/uL (1.2-3.4); Absolute Monocyte Count 0.99 10^3/uL (0.1-0.8); Absolute Neutrophil Count 7.86 10^3/uL (1.2-6.7); Basophils % 0.2; Eosinophils % 2.4; HCT 33.3 % (40.0-50.0); HGB 11.1 g/dL (13.5-17.5); Immature Grans % 0.3; MCH 30.4 pg (27.0-33.0); MCHC 33.3 % (32.0-36.0); MCV 91 fL (80-95); MPV 11.5 fL (8.0-11.0); Monocytes % 10.2; Neutrophils % 80.9; Platelet Count 121 10^3/uL (130-400); RBC 3.65 10^6/uL (4.36-5.78); RDW 14.3 % (11.8-14.1); RDW-SD 47.9 fL; WBC 9.71 10^3/uL (4.4-10.8)
[2022-02-21 07:49] LABS: Anion Gap 6.8 mmol/L (3-11); C-Reactive Protein 19.98 mg/dL (0.0-0.3); CO2 27.2 mmol/L (21.0-32.0); CREATININE 2.5 mg/dL (0.70-1.30); Calcium 8.8 mg/dL (8.5-10.1); Chloride 100 mmol/L (98-107); Estimated GFR 25.97 (mL/min/1.73m2); Glucose 136 mg/dL (74-106); Magnesium 2.2 mg/dL (1.8-2.4); Potassium 4.5 mmol/L (3.5-5.1); Sodium 134 mmol/L (136-145)
[2022-02-21 07:53] LABS: BUN 88 mg/dL (7-18)
[2022-02-21] MEDS: Carvedilol 25 MG TAB PO ×2 (08:15→20:53)
[2022-02-21] MEDS: Lisinopril 5 MG TAB PO (08:15)
[2022-02-21] MEDS: Pregabalin 50 MG CAP 150 MG PO ×2 (08:15→20:53)
[2022-02-21] MEDS: Multivitamin TAB 1 TAB PO (08:15)
[2022-02-21] MEDS: Furosemide 40 MG TAB PO (08:15)
[2022-02-21] MEDS: Aspirin E.C. 81 MG TABEC PO (08:16)
[2022-02-21] MEDS: Clopidogrel 75 MG TAB PO (08:16)
[2022-02-21] MEDS: Insulin Glargine 300 UNITS/3 ML PEN 50 UNITS SC ×2 (08:19→21:06)
[2022-02-21] MEDS: Insulin Aspart 300 UNITS/3 ML PEN 30 UNITS SC ×3 (08:20→16:55)
[2022-02-21] MEDS: Pantoprazole 40 MG VIAL IVP (10:19)
[2022-02-21] MEDS: CEFEPIME 2 GM in Normal Saline 100 ML IVPB ×2 (10:20→20:53)
[2022-02-21 11:00] VITALS: BP 146/76; PULSE 65; RESP 16; TEMP 36.5; O2SAT 95
--- NOTE | 2022-02-21 11:14 | W.INDIABCONS ---
Date of service: 02/21/22 Time of Service: 10:14 Diabetes Inpatient Consult Reason for Visit: dm DESCRIPTION/ASSESSMENT: Met with Bereket today. He reports using a Alfredo 2 continuous glucose monitor at home and has had well controlled blood sugars prior to foot infection. Home DM meds: 50 u lantus BID, 30 u aspart at meals. Most recent A1C: 6.5% (11/07/21). He reports 30 lbs weight gain in last 3 years. He reports he keeps increasing insulin and he keeps gaining weight. High BMI, insulin resistant. INTERVENTION: Offered outpatient nutritional services for weight loss/glycemic management- provided contact info. Encouraged Bereket to talk to his PCP about changing his insulin regime to more concentrated basal insulin such as Tresiba and adding [id number] and SGLtsi to help with glycemic management and weight loss. Reviewed weight loss principles and carb counting- not receptive to education at this time. PLAN: will continue to follow and support. Time Spent in Nutritional Counseling and Treatment: 10
[2022-02-21] MEDS: Insulin Aspart 300 UNITS/3 ML PEN SC ×3 (11:58→21:04)
--- NOTE | 2022-02-21 12:37 | W.PM.PROGNOT ---
Date of Service Date of service: 02/21/22 Time of Service: 11:38 Assessment and Plan Assessment and plan (1) Diabetic foot infection: Status: Acute Assessment and plan: An x-ray of the foot does not show any abnormality. see podiatry consult. will continue with vanco/cefepime day 2 while awaiting cultures (2) SIRS (systemic inflammatory response syndrome): Status: Acute Assessment and plan: follow inflammatory markers (3) Cellulitis: Status: Acute Assessment and plan: continue vancomycin and cefepime day 2 while awaiting cultures. Blood cultures were done. ultrasound of the left lower extremity ruled out DVT or abscess. . discussed with DR Victor Subjective Subjective Patient reports: no new complaints, feels better, tolerating liquids well, tolerating a regular diet and afebrile; denies shortness of breath Exam Const General: cooperative, comfortable and no acute distress Nutritional Appearance: obese Orientation: alert, awake and oriented x3 HENMT Head: normal to inspection and normocephalic Neck Neck: normal visual inspection Resp Effort & Inspection: normal respiratory effort and able to speak in complete sentences Auscultation: clear to auscultation bilaterally Cardio Rate: regular rate Rhythm: regular rhythm GI Inspection: normal to inspection Palpation: soft Auscultation: normal bowel sounds Skin General skin exam: dry skin and erythema Rashes: rashes noted Neuro Cranial Nerves: CN's II-XI intact bilaterally Speech: speech normal Motor: muscle tone normal throughout Extrem General: normal to inspection and full ROM Left lower extremity: no edema Objective Last Vital Signs Temp 36.5 C 02/21/22 11:00 Pulse 65 02/21/22 11:00 Resp 16 02/21/22 11:00 BP 146/76 H 02/21/22 11:00 Pulse Ox 95 02/21/22 11:00 Laboratory Results - last 24 hr 02/21/22 02/21/22 02/21/22 04:40 06:43 06:43 WBC 9.71 RBC 3.65 L Hgb 11.1 L Hct 33.3 L MCV 91 MCH 30.4 MCHC 33.3 RDW 14.3 H Plt Count 121 L MPV 11.5 H Immature Gran % 0.3 Neutrophils % 80.9 Lymphocytes % 6.0 Monocytes % 10.2 Eosinophils % 2.4 Basophils % 0.2 Nucleated RBC % 0.0 Absolute Neutrophils 7.86 H Absolute Lymphocytes 0.58 L Absolute Monocytes 0.99 H Absolute Eosinophils 0.23 Absolute Basophils 0.02 Sodium 134 L Potassium 4.5 Chloride 100 Carbon Dioxide 27.2 Anion Gap 6.8 BUN 88 H* Creatinine 2.5 H Estimated GFR/1.73 m2 25.97 Glucose 136 H Calcium 8.8 Magnesium 2.2 C-Reactive Protein 19.98 H Urine Color Yellow Urine Clarity Clear Urine pH 6.0 Ur Specific [place] 1.020 Urine Protein 100 H Urine Ketones Negative Urine Blood Trace-intact H Urine Nitrite Negative Urine Bilirubin Negative Urine Urobilinogen 0.2 Ur Leukocyte Esterase Negative Urine RBC 0-2 Urine WBC 3-5 Ur Epithelial Cells Rare Urine Crystals Negative Urine Bacteria Rare Urine Casts 0-2 Hyaline Urine Mucus Trace Urine Other Rare Renal Ur Culture Indicated? C&S Done As Ordered Urine Glucose Negative
--- NOTE | 2022-02-21 13:43 | PDOC.CMPRO ---
- If Service Date Differs Date of service: 02/21/22 Time of Service: 13:43 Care Management Progress Note S/O: Bereket was sitting up in his chair with his left leg elevated when CM met with him. He is alert, oriented, pleasant and easy to engage in conversation. He's currently on IV ABX, with has cultures pending. His labs (including kidney fxn) require close monitoring. Bereket shared with CM that he's already had his Right Great toe and Left small toe amputated. He uses a Alfredo devise to monitor his BS at home, and reportedly his sugars had been well controlled until he developed the infection. CM will continue to support patient and his discharge planning needs. A: 67 year old male admitted to [facility] on 02/20/22 for Diabetic foot infection, systemic inflammatory response syndrome, Cellulitis P:Bereket will likely be discharged home when medically cleared by provider. It is possible he may need termite helper IVAB and may require home health nursing support. He will follow up with his community providers and plan of care and transport with family. CM will continue to support Bereket and assess for ongoing discharge concerns.
[2022-02-21 15:00] VITALS: BP 142/77; PULSE 60; RESP 17; TEMP 36.6; O2SAT 95
[2022-02-21 20:01] VITALS: BP 147/72; PULSE 57; RESP 17; TEMP 36.5; O2SAT 97
[2022-02-21] MEDS: ROSUVASTATIN 20 MG TAB 40 MG PO (20:53)
[2022-02-22] VITALS (7 sets, daily range): BP systolic 107–168; BP diastolic 45–76; PULSE 47–108; RESP 16–18; TEMP 36.1–37; O2SAT 94–98
[2022-02-22] MEDS: Acetaminophen 500 MG TAB 1000 MG PO ×2 (00:01→16:35)
[2022-02-22] MEDS: VANCOMYCIN/WATER (PEG) 1 GM/200 ML BAG IV (05:27)
[2022-02-22 07:04] LABS: Abs Immature Grans 0.03 10^3/uL (0.0-0.06); Absolute Basophil Count 0.02 10^3/uL (0.0-0.2); Absolute Eosinophil Count 0.25 10^3/uL (0.0-0.7); Absolute Lymphocyte Count 0.79 10^3/uL (1.2-3.4); Absolute Monocyte Count 1.14 10^3/uL (0.1-0.8); Absolute Neutrophil Count 5.62 10^3/uL (1.2-6.7); Basophils % 0.3; Eosinophils % 3.2; HCT 28.1 % (40.0-50.0); HGB 9.8 g/dL (13.5-17.5); Immature Grans % 0.4; Lymphocytes % 10.1; MCHC 34.9 % (32.0-36.0); MCV 89 fL (80-95); MPV 11.5 fL (8.0-11.0); Monocytes % 14.5; Neutrophils % 71.5; Platelet Count 117 10^3/uL (130-400); RBC 3.16 10^6/uL (4.36-5.78); RDW 14.4 % (11.8-14.1); RDW-SD 46.8 fL; WBC 7.85 10^3/uL (4.4-10.8)
[2022-02-22 07:20] LABS: Anion Gap 7.4 mmol/L (3-11); C-Reactive Protein 14.91 mg/dL (0.0-0.3); CO2 25.6 mmol/L (21.0-32.0); CREATININE 2.7 mg/dL (0.70-1.30); Calcium 8.7 mg/dL (8.5-10.1); Chloride 100 mmol/L (98-107); Estimated GFR 23.76 (mL/min/1.73m2); Glucose 66 mg/dL (74-106); Magnesium 2.2 mg/dL (1.8-2.4); Potassium 4.3 mmol/L (3.5-5.1); Sodium 133 mmol/L (136-145)
[2022-02-22 07:22] LABS: BUN 95 mg/dL (7-18)
[2022-02-22] MEDS: Aspirin E.C. 81 MG TABEC PO (09:26)
[2022-02-22] MEDS: Clopidogrel 75 MG TAB PO (09:26)
[2022-02-22] MEDS: Multivitamin TAB 1 TAB PO (09:27)
[2022-02-22] MEDS: Pregabalin 50 MG CAP 150 MG PO ×2 (09:27→21:09)
[2022-02-22] MEDS: Pantoprazole 40 MG TABCR PO (09:27)
[2022-02-22] MEDS: Carvedilol 25 MG TAB PO ×2 (09:28→21:09)
[2022-02-22] MEDS: Lisinopril 5 MG TAB PO (09:39)
[2022-02-22] MEDS: Furosemide 40 MG TAB PO (09:40)
[2022-02-22] MEDS: CEFEPIME 1 GM in Normal Saline 50 ML IVPB ×2 (10:43→21:18)
--- NOTE | 2022-02-22 14:48 | PGE_ITS ---
Date of Service Date of service: 02/22/22 Time of Service: 13:48 Assessment and Plan Assessment and plan (1) Cellulitis: Status: Acute Assessment and plan: responding well to current regimen: continue vancomycin and cefepime day 3 while awaiting cultures. Blood cultures negative to date elevate as much as possible above level of heart ultrasound of the left lower extremity ruled out DVT or abscess. . (2) Diabetic foot infection: Status: Acute Assessment and plan: No evidence of osteomyelitis followed by podiatry with dressing recommendations continue post op shoe with ambulation continue treatment for cellulitis of leg with vanco/cefepime day 3 while aw aiting final cultures (3) Diabetes mellitus type 2, insulin dependent: Status: Acute Assessment and plan: blood sugars low this morning at 60 ac breakfast and 80's pc. will hold am lantus (home dose is 50 units BID) reduce dose to 30 units BID, consider lower if blood sugar remains low. diabetic diet, sliding scale as needed. last A1C 6.5 in Oct 2021. (4) Chronic kidney disease (CKD): Status: Chronic Assessment and plan: stable. will need to continue to monitor closely renal dosing of medication, avoid nephrotoxic drugs. (5) DVT prophylaxis: Status: Acute Assessment and plan: heparin in setting of CKD (6) Discharge planning issues: Status: Acute Assessment and plan: anticipate a discharge to home with no services once medically stable. discussed with DR Corona Subjective Subjective Patient reports: no new complaints, feels better, tolerating liquids well, tolerating a regular diet and afebrile Interval history since last seen: pain, redness and swelling all continue to improve. no fevers overnight. eating and drinking well. Exam Const General: cooperative, comfortable and no acute distress Nutritional Appearance: obese Orientation: alert, awake and oriented x3 HENMT Head: normal to inspection and normocephalic Neck Neck: normal visual inspection Resp Effort & Inspection: normal respiratory effort and able to speak in complete sentences Auscultation: clear to auscultation bilaterally Cardio Rate: regular rate Rhythm: regular rhythm GI Inspection: normal to inspection Palpation: soft Auscultation: normal bowel sounds Skin General skin exam: dry skin and erythema Lesions: lesion noted (2 mepilex intact to anterior left lower extremity) Rashes: rashes noted (erythema to left calf/anterior lower ext improved since yesterday) Neuro Cranial Nerves: CN's II-XI intact bilaterally Speech: speech normal Motor: muscle tone normal throughout Extrem General: normal to inspection and full ROM Left lower extremity: no edema Objective Last Vital Signs Temp 36.2 C L 02/22/22 11:27 Pulse 77 02/22/22 11:27 Resp 16 02/22/22 11:27 BP 168/76 H 02/22/22 11:27 Pulse Ox 95 02/22/22 11:27 Laboratory Results - last 24 hr 02/22/22 02/22/22 06:14 06:14 WBC 7.85 RBC 3.16 L Hgb 9.8 L Hct 28.1 L MCV 89 MCH 31.0 MCHC 34.9 D RDW 14.4 H Plt Count 117 L MPV 11.5 H Immature Gran % 0.4 Neutrophils % 71.5 Lymphocytes % 10.1 Monocytes % 14.5 Eosinophils % 3.2 Basophils % 0.3 Nucleated RBC % 0.0 Absolute Neutrophils 5.62 Absolute Lymphocytes 0.79 L Absolute Monocytes 1.14 H Absolute Eosinophils 0.25 Absolute Basophils 0.02 Sodium 133 L Potassium 4.3 Chloride 100 Carbon Dioxide 25.6 Anion Gap 7.4 BUN 95 H* Creatinine 2.7 H Estimated GFR/1.73 m2 23.76 Glucose 66 L Calcium 8.7 Magnesium 2.2 C-Reactive Protein 14.91 H
[2022-02-22] MEDS: Insulin Aspart 300 UNITS/3 ML PEN 30 UNITS SC (17:55)
[2022-02-22] MEDS: Insulin Aspart 300 UNITS/3 ML PEN SC ×2 (17:56→21:11)
[2022-02-22] MEDS: Heparin 5,000 UNITS/ML VIAL 5000 UNITS SC (17:56)
[2022-02-22] MEDS: ROSUVASTATIN 20 MG TAB 40 MG PO (21:09)
[2022-02-22] MEDS: Insulin Glargine 300 UNITS/3 ML PEN 30 UNITS SC (21:10)
[2022-02-22] MEDS: Normal Saline Flush 10 ML SYR IVP (21:19)
[2022-02-23] MEDS: VANCOMYCIN/WATER (PEG) 1 GM/200 ML BAG IV (05:50)
[2022-02-23] MEDS: Heparin 5,000 UNITS/ML VIAL 5000 UNITS SC ×2 (05:50→17:48)
[2022-02-23] MEDS: Pantoprazole 40 MG TABCR PO (07:35)
[2022-02-23 07:39] VITALS: BP 136/80; PULSE 58; RESP 18; TEMP 34.4; O2SAT 97
[2022-02-23] MEDS: Insulin Glargine 300 UNITS/3 ML PEN 30 UNITS SC (07:49)
[2022-02-23] MEDS: Pregabalin 50 MG CAP 150 MG PO ×2 (07:49→20:50)
[2022-02-23] MEDS: Aspirin E.C. 81 MG TABEC PO (07:49)
[2022-02-23] MEDS: Multivitamin TAB 1 TAB PO (07:50)
[2022-02-23] MEDS: Lisinopril 5 MG TAB PO (07:50)
[2022-02-23] MEDS: Furosemide 40 MG TAB PO (07:50)
[2022-02-23] MEDS: Carvedilol 25 MG TAB PO ×2 (07:50→20:52)
[2022-02-23] MEDS: Clopidogrel 75 MG TAB PO (07:50)
[2022-02-23] MEDS: CEFEPIME 1 GM in Normal Saline 50 ML IVPB ×2 (09:32→20:52)
[2022-02-23 11:50] VITALS: BP 129/60; PULSE 53; RESP 18; TEMP 35.9; O2SAT 99
--- NOTE | 2022-02-23 11:55 | W.PM.PROGNOT ---
Date of Service Date of service: 02/23/22 Time of Service: 10:55 Assessment and Plan Assessment and plan (1) Cellulitis: Status: Acute Assessment and plan: responding well to current regimen: continue vancomycin and cefepime day 4 while awaiting cultures. Blood and urine cultures negative to date elevate as much as possible above level of heart Ruled out DVT and abscess. . (2) Diabetic foot infection: Status: Acute Assessment and plan: No evidence of osteomyelitis followed by podiatry with dressing recommendations continue post op shoe with ambulation continue treatment for cellulitis of leg with vanco/cefepime day 4 while awaiting final cultures; home on day 5 with Bactrim DS (3) Diabetes mellitus type 2, insulin dependent: Status: Acute Assessment and plan: blood sugars low this morning at 60 ac breakfast and 80's pc. will hold am lantus (home dose is 50 units BID) reduce dose to 30 units BID, consider lower if blood sugar remains low. diabetic diet, sliding scale as needed. last A1C 6.5 in Oct 2021. (4) Chronic kidney disease (CKD): Status: Chronic Assessment and plan: stable. will need to continue to monitor closely renal dosing of medication, avoid nephrotoxic drugs. (5) DVT prophylaxis: Status: Acute Assessment and plan: heparin in setting of CKD (6) Discharge planning issues: Status: Acute Assessment and plan: anticipate a discharge to home with no services once medically stable. discussed with Dr Corona Subjective Subjective Patient reports: no new complaints Interval history since last seen: Cellulitis continues to improve today. He would like to go home. VSS, discussed leaving after vancomycin dose tomorrow, home on 4 days of Bactrim - agree'd with that plan. Exam Const General: cooperative, comfortable and no acute distress Nutritional Appearance: obese Orientation: alert, awake and oriented x3 HENMT Head: normal to inspection and normocephalic Neck Neck: normal visual inspection Resp Effort & Inspection: normal respiratory effort and able to speak in complete sentences Auscultation: clear to auscultation bilaterally Cardio Rate: regular rate Rhythm: regular rhythm GI Inspection: normal to inspection Palpation: soft Auscultation: normal bowel sounds Skin General skin exam: dry skin and erythema Lesions: lesion noted (3 mepilex intact to anterior left lower extremity) Rashes: rashes noted (erythema to left calf/anterior lower ext continues to improve) Neuro Cranial Nerves: CN's II-XI intact bilaterally Speech: speech normal Motor: muscle tone normal throughout Extrem General: normal to inspection and full ROM Left lower extremity: no edema Objective Last Vital Signs Temp 34.4 C L 02/23/22 07:39 Pulse 58 L 02/23/22 07:39 Resp 18 02/23/22 07:39 BP 136/80 02/23/22 07:39 Pulse Ox 97 02/23/22 07:39 Reviewed Pertinent PMH: Yes
[2022-02-23] MEDS: Insulin Aspart 300 UNITS/3 ML PEN 30 UNITS SC ×2 (12:06→16:55)
[2022-02-23] MEDS: Insulin Aspart 300 UNITS/3 ML PEN SC (12:07)
[2022-02-23 15:02] VITALS: BP 125/71; PULSE 56; RESP 18; TEMP 36.5; O2SAT 99
[2022-02-23 15:43] VITALS: BP 142/65; PULSE 55; RESP 18; TEMP 34.9; O2SAT 97
--- NOTE | 2022-02-23 15:55 | W.PM.DS.N ---
DS: Diagnosis Discharge Diagnosis (1) Cellulitis: Status: Acute (2) Diabetic foot infection: Status: Acute (3) Diabetes mellitus type 2, insulin dependent: Status: Acute (4) Chronic kidney disease (CKD): Status: Chronic (5) DVT prophylaxis: Status: Acute (6) Discharge planning issues: Status: Acute Discharge Plan Disposition Patient Disposition: HOME Condition: Stable Discharge Details Reason For Visit: Diabetic Foot Infection Admit Date/Time: 02/20/22 19:45 Admit Provider: Bereket Kinney Attending Provider: Bereket Kinney Primary Care Provider: Jarrod Schultz [facility] Course Hospital Course: 67 yo male with hx of DM, who was on clindamycin for treatment of a left leg wound infection. He did finish the course, that night he comes in to the ED with continued pain and swelling of the left leg and chills. T max 38.2. His left lower leg was swollen compared to the left and was warm as well as erythematous to the mid tibia. He has an ulcerated wound on the plantar surface of the left big toe, He failed oral outpatient anbitiotics and was admitted for IV antibiotics. He had an elevated WBC of 16 that has since normalized. BUN 95 creat 2.7. H&H 9.8/28.1. He was started on vancomycin and cefepime. Blood and urine cultures are negative. His leg is improving, although still red and warm, no fevers. Plan to discharge 02/24/22 after am dose of vancomycin on Bactrim DS for 4 days. Rx sent to [facility] in [place]. Instructed to return to ED if fever, increased pain, increased swelling/redness. Advised he would. He does have an appointment with his PCP in 3 days and with Podiatry, he's not sure when, but within the next [address] Corona Home Meds and New Rx's Prescriptions: New sulfamethoxazole-trimethoprim [Bactrim DS] 800-160 mg tablet 1 tab PO BID Qty: 8 0RF Rx Instructions: take for 4 days Continued rosuvastatin 40 mg tablet See Rx Instructions .ROUTE .COMPLEX Qty: 90 3RF Dose Instruction: TAKE ONE TABLET BY MOUTH EVERY DAY AT BEDTIME Rx Instructions: TAKE ONE TABLET BY MOUTH EVERY DAY AT BEDTIME nitroglycerin 0.4 mg tablet, sublingual 0.4 mg SL Q5-15M PRN (Reason: chest pain) Qty: 25 0RF triamcinolone acetonide 0.5 % ointment 1 applic Topical BID PRN (Reason: dermatitis) Qty: 80 1RF aspirin [Adult Aspirin Regimen] 81 mg tablet,delayed release (DR/EC) 81 mg PO DAILY hydrocodone-acetaminophen 7.5-325 mg tablet 1 tab PO BID MDD 2 tabs PRN (Reason: back pain) Qty: 56 0RF (DME) BD Insulin Syringe 1 EACH syringe 1 ea Sub-Q QID Qty: 3 Rx Instructions: B/D INSULIN ULTRA-FINE 30GX0.3/ (DME) Aerochamber Plus Flow-Vu 1 EACH spacer 1 ea Miscellaneous PRN Qty: 1 0RF (DME) blood-glucose meter [FreeStyle Lite Meter] 1 EACH kit 1 ea Miscellaneous TID Qty: 1 0RF (DME) FreeStyle Lite Strips Strip 1 ea Miscellaneous QID Qty: 400 6RF Rx Instructions: 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 E11.42 Basaglar KwikPen U-100 Insulin 100 unit/mL (3 mL) insulin pen 50 unit subcut BID Qty: 15 6RF (DME) FreeStyle Alfredo 2 [place] Misc See Rx Instructions .ROUTE .MEDSUPPLY Qty: 1 0RF Rx Instructions: As directed (DME) FreeStyle Alfredo 2 Sensor Kit See Rx Instructions .ROUTE .MEDSUPPLY Qty: 2 6RF Rx Instructions: As directed (DME) BD Regular Bevel [place] 21 gauge x 1 1/2 needle 1 ea Miscellaneous QID Qty: 100 6RF Rx Instructions: BD U100 29g 1/2 with safety lock insulin syringes Dx E11.49 clopidogrel 75 mg tablet 75 mg PO DAILY Qty: 90 4RF (DME) pen needle, diabetic [BD Ultra-Fine Short Pen Needle] 31 gauge x 5/16 needle See Rx Instructions .ROUTE .MEDSUPPLY Qty: 100 4RF Rx Instructions: check blood sugar qid lisinopril 5 mg tablet 5 mg PO DAILY Qty: 90 1RF carvedilol 25 mg tablet 25 mg PO BID Qty: 180 3RF pregabalin 150 mg capsule 150 mg PO TID Qty: 90 5RF furosemide 40 mg tablet 40 mg PO DAILY insulin aspart U-100 [Novolog Flexpen U-100 Insulin] 100 unit/mL (3 mL) insulin pen 30 unit Sub-Q AC Qty: 70 4RF multivitamin Tablet 1 tab PO DAILY acetaminophen 500 mg Tablet 1,000 mg PO Q6H PRN Discharge Instructions Instructions: Cellulitis (DC) Referrals: Jin Mccauley DPM [[facility] STAFF PHYSICIAN] - (Follow up in 1-2 weeks) Activity:: Activity as Tolerated Equipment/Supplies:: No Equipment Needed Diet:: Carb Counting Discharge Orders Discharge Orders: Discharge Order (Routine); Ordered 02/24/22 Ordered By: Martha Castanon DS: Summary Time Spent with Patient providing and/or coordinating discharge services: Greater than 30 minutes Status at Discharge Functional status at discharge: uses cane/walker Overall status at discharge: patient is progressing back to baseline Mental Status: mental status grossly normal Speech and Movement: speech and movement normal and slowed movement Mood: congruent mood Affect: normal affect Exam Const General: cooperative, comfortable and no acute distress Nutritional Appearance: obese Orientation: alert, awake and oriented x3 HENMT Head: normal to inspection and normocephalic Neck Neck: normal visual inspection Resp Effort & Inspection: normal respiratory effort and able to speak in complete sentences Auscultation: clear to auscultation bilaterally Cardio Rate: regular rate Rhythm: regular rhythm GI Inspection: normal to inspection Palpation: soft Auscultation: normal bowel sounds Skin General skin exam: dry skin and erythema Lesions: lesion noted (3 mepilex intact to anterior left lower extremity - cushioning no lesion) Rashes: rashes noted (erythema to left calf/anterior lower ext improved significantly) Neuro Cranial Nerves: CN's II-XI intact bilaterally Speech: speech normal Motor: muscle tone normal throughout Extrem General: normal to inspection and full ROM Left lower extremity: no edema Psych Mental Status: mental status grossly normal Speech and Movement: speech and movement normal and slowed movement Mood: congruent mood Affect: normal affect DS: Data Vitals/I&O Vitals and I&O: Vital Signs Temperature 34.9 C L 02/23/22 15:43 Temperature Source Tympanic 02/23/22 15:43 Pulse 55 L 02/23/22 15:43 Pulse Rhythm Regular 02/23/22 10:13 Respiratory Rate 18 02/23/22 15:43 Respiratory Effort Non-Labored 02/23/22 10:13 Respiratory Depth Normal 02/23/22 10:13 Respiratory Pattern Normal 02/23/22 10:13 Blood Pressure 142/65 H 02/23/22 15:43 Pulse Oximetry 97 02/23/22 15:43 Oxygen Delivery Method Room Air 02/23/22 15:43 Oxygen Flow Rate 0 02/23/22 15:43 Pain Level 6 02/23/22 15:43 Intake & Output 02/22/22 02/23/22 02/23/22 23:59 11:59 23:59 Intake Total 290 / 910 250 / 550 300 / 550 Output Total 1900 / 3150 1600 / 1600 Balance -1610 / -2240 -1350 / -1050 300 / -1050 Intake: IV 50 / 300 50 / 50 Oral 240 / 610 250 / 500 250 / 500 Output: Urine 1900 / 3150 1600 / 1600 Other: Urine Color Yellow Yellow Urine Appearance Clear Clear Urine Odor Normal Comment Per pt. report, void x1 in the toilet. Voiding Methods Toilet Data Completed and Pending Labs on day of discharge: Preliminary micro results at discharge 02/20/22 05:42 Blood Culture - Preliminary Blood NO GROWTH 72 HOURS 02/20/22 05:25 Blood Culture - Preliminary Blood NO GROWTH 72 HOURS PFSH All Active Problems (Updated 02/22/22 @ 14:56 by Claudine Barba NP) Discharge planning issues (Acute) DVT prophylaxis (Acute) Cellulitis (Acute) Diabetic foot infection (Acute) Leg wound, left (Acute) Diabetic retinopathy (Acute ~12/2021) B/L MODERATE-01/17 Edema (Acute) Gout (Chronic) 08/2021-diagnosed by rheumatology at [facility]-probable gout tophi of hands Obesity (Chronic) Diabetes mellitus type 2, insulin dependent (Acute) with nephropathy Chronic kidney disease (CKD) (Chronic) 08/2021- Cr 1.7 Hand arthritis (Acute) Amputation of toe (Acute) Cellulitis of foot, right (Acute) Diabetes mellitus type 2, insulin dependent (Acute) Right heart failure (Acute) Diabetic peripheral neuropathy (Chronic) Diabetic peripheral angiopathy (Chronic) Hypertension (Chronic) Chronic pain syndrome (Chronic) low back pain, drug contract at [facility]-V PMS and drug screen on 08/1221-patient on chronic hydrocodone Coronary artery disease involving [place] coronary artery of [place] heart with unstable angina pectoris (Chronic 08/30/17) [place]24-[place] [facility] [place] 3 vessel disease (LAD,LCx and RCA): coronary bypass sx pending Dyspnea on exertion (Chronic 12/16/13) negative nuclear stress test echocardiogram: normal/ EF 65%/no valvulopathy Cardiol.eval. : not ischemia related ([facility]) Peripheral autonomic neuropathy in disorders classified elsewhere (Chronic 09/15/14) Hyperlipidemia (Chronic) Medical History Congestive heart failure Diabetic foot ulcer DM (diabetes mellitus) 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 secondary to diabetic ulcer, angiopathy Laceration of lower leg with foreign body Lymphedema Obesity Proliferative diabetic retinopathy of both eyes without macular edema associated with diabetes mellitus due to underlying condition (01/18/18) 01[place]18[place] [place] [place]rotal hematoma (07/26/14) A. S/p hydrocelectomy 07/24/14 Stroke (~2008) TIA (transient ischemic attack) Surgical History H/O surgical procedure A. Hydrocelectomy 07/24/2014 History of cataract removal with insertion of prosthetic lens History of hydrocelectomy (07/24/14) right S/P CABG x 3 (08/30/17) [facility] [place] 08-29-2017 : no fup needed Family History Mother No problems noted. Father Diabetes Myocardial infarction Heart disease Sister Diabetes Social History Smoking/Tobacco Use Status: Former Tobacco Use Quit Date: 09/28/83 Tobacco: How many years used: 5 Smoking risk assessment performed?: Yes Alcohol Intake: never Drug use: Never Substance use type: does not use Pets and animals: Yes Pets and animals: cat(s) and dog(s) What type of physical activity do you participate in: none Do you feel safe at home: Yes Do you feel safe in your relationship?: Yes
[2022-02-23 20:50] VITALS: BP 156/69; PULSE 55; RESP 22; TEMP 36.6; O2SAT 98
[2022-02-23] MEDS: ROSUVASTATIN 20 MG TAB 40 MG PO (20:50)
[2022-02-23 23:28] VITALS: BP 156/68; PULSE 58; RESP 22; TEMP 36.5; O2SAT 98
[2022-02-24 03:36] VITALS: BP 155/65; PULSE 60; RESP 22; TEMP 36.5; O2SAT 95
[2022-02-24] MEDS: VANCOMYCIN/WATER (PEG) 1 GM/200 ML BAG IV (05:09)
[2022-02-24 05:47] LABS: Abs Immature Grans 0.02 10^3/uL (0.0-0.06); Absolute Basophil Count 0.02 10^3/uL (0.0-0.2); Absolute Eosinophil Count 0.32 10^3/uL (0.0-0.7); Absolute Lymphocyte Count 0.79 10^3/uL (1.2-3.4); Absolute Monocyte Count 1.02 10^3/uL (0.1-0.8); Absolute Neutrophil Count 5.52 10^3/uL (1.2-6.7); Basophils % 0.3; Eosinophils % 4.2; HGB 9.5 g/dL (13.5-17.5); Immature Grans % 0.3; Lymphocytes % 10.3; MCH 30.5 pg (27.0-33.0); MCHC 33.9 % (32.0-36.0); MCV 90 fL (80-95); MPV 11.2 fL (8.0-11.0); Monocytes % 13.3; Neutrophils % 71.6; Platelet Count 115 10^3/uL (130-400); RBC 3.11 10^6/uL (4.36-5.78); RDW 14.3 % (11.8-14.1); RDW-SD 46.4 fL; WBC 7.69 10^3/uL (4.4-10.8)
[2022-02-24 06:00] LABS: Anion Gap 9.8 mmol/L (3-11); CO2 24.2 mmol/L (21.0-32.0); CREATININE 3.1 mg/dL (0.70-1.30); Calcium 8.8 mg/dL (8.5-10.1); Chloride 100 mmol/L (98-107); Estimated GFR 20.26 (mL/min/1.73m2); Glucose 169 mg/dL (74-106); Potassium 5.6 mmol/L (3.5-5.1); Sodium 134 mmol/L (136-145); Vancomycin, Trough 19.1 ug/mL (10.0-20.0)
[2022-02-24 06:03] LABS: BUN 107 mg/dL (7-18)
[2022-02-24] MEDS: Aspirin E.C. 81 MG TABEC PO (08:37)
[2022-02-24] MEDS: Multivitamin TAB 1 TAB PO (08:37)
[2022-02-24] MEDS: Pantoprazole 40 MG TABCR PO (08:37)
[2022-02-24] MEDS: Pregabalin 50 MG CAP 150 MG PO (08:37)
[2022-02-24] MEDS: Clopidogrel 75 MG TAB PO (08:37)
[2022-02-24] MEDS: Furosemide 40 MG TAB PO (08:37)
[2022-02-24] MEDS: Carvedilol 25 MG TAB PO (08:37)
[2022-02-24] MEDS: Lisinopril 5 MG TAB PO (08:38)
[2022-02-24] MEDS: Insulin Glargine 300 UNITS/3 ML PEN 30 UNITS SC (08:38)
[2022-02-24] MEDS: Insulin Aspart 300 UNITS/3 ML PEN SC ×2 (08:39→12:55)
[2022-02-24] MEDS: Insulin Aspart 300 UNITS/3 ML PEN 20 UNITS SC ×2 (08:40→12:55)
[2022-02-24 09:03] VITALS: BP 115/64; PULSE 60; RESP 16; TEMP 36.5; O2SAT 97
[2022-02-24] MEDS: CEFEPIME 1 GM in Normal Saline 50 ML IVPB (09:41)
[2022-02-24] MEDS: Normal Saline Flush 10 ML SYR IVP (09:42)
[2022-02-24] MEDS: Normal Saline 500 ML 30 ML IV (09:42)
[2022-02-24] MEDS: Sodium Zirconium Cyclosilicate 10 GM PKT PO (12:05)
[2022-02-24] MEDS: Normal Saline 500 ML IV (12:05)
== END 2022-02-24 14:49 | disposition home or self-care (01) | DRG 638 ==
LOC: ER 06:40 → MS 06:42
PROVIDERS: Family Medicine; Internal Medicine; Nurse Practitioner Family; Admitting Provider Family Medicine; Emergency Provider Emergency Medicine; PCP Nurse Practitioner Family; Visit Provider Family Medicine
DX: E11.628 Type 2 diabetes mellitus with other skin complications (principal); L03.116 Cellulitis of left lower limb; Z68.42 Body mass index [BMI] 45.0-49.9, adult; E11.22 Type 2 diabetes mellitus with diabetic chronic kidney disease; E11.621 Type 2 diabetes mellitus with foot ulcer; E11.319 Type 2 diabetes mellitus with unspecified diabetic retinopathy without macular edema; E66.9 Obesity, unspecified; E11.42 Type 2 diabetes mellitus with diabetic polyneuropathy; E11.51 Type 2 diabetes mellitus with diabetic peripheral angiopathy without gangrene; I12.9 Hypertensive chronic kidney disease with stage 1 through stage 4 chronic kidney disease, or unspecified chronic kidney disease; M1A.0421 Idiopathic chronic gout, left hand, with tophus (tophi); N18.9 Chronic kidney disease, unspecified; G89.4 Chronic pain syndrome; M1A.0411 Idiopathic chronic gout, right hand, with tophus (tophi); Z79.4 Long term (current) use of insulin; M54.50 Low back pain, unspecified; Z79.891 Long term (current) use of opiate analgesic; Z95.1 Presence of aortocoronary bypass graft; L97.521 Non-pressure chronic ulcer of other part of left foot limited to breakdown of skin; E78.5 Hyperlipidemia, unspecified; Z89.422 Acquired absence of other left toe(s); I25.10 Atherosclerotic heart disease of native coronary artery without angina pectoris; Z86.73 Personal history of transient ischemic attack (TIA), and cerebral infarction without residual deficits; Z87.891 Personal history of nicotine dependence; I50.812 Chronic right heart failure; I87.2 Venous insufficiency (chronic) (peripheral)
CPT/HCPCS: 36415; 80048; 80053; 84145; 87040; 87637; 99285; 73630; 80202; 81003; 81015; 83605; 83735; 85025; 86140; 87086; 93971; 99222; 99232; 99233; 99239; G0378; J1644

== ENCOUNTER 2022-02-21 01:37 | Outpatient (CLI) | payer MEDICARE, SELFPAY | END 2022-02-21 01:38 | disposition home or self-care (01) | LOC: LOS 01:37 | PROVIDERS: PCP Nurse Practitioner Family; Visit Provider Family Medicine ==

== ENCOUNTER 2022-02-28 01:39 | Outpatient (CLI) | payer MEDICARE, SELFPAY ==
[2022-02-28 16:39] LABS: ESR 59 mm/hr (0-20)
[2022-02-28 16:52] LABS: Anion Gap 9.9 mmol/L (3-11); BUN 49 mg/dL (7-18); CO2 24.1 mmol/L (21.0-32.0); CREATININE 1.8 mg/dL (0.70-1.30); Calcium 9.2 mg/dL (8.5-10.1); Chloride 105 mmol/L (98-107); Estimated GFR 37.94 (mL/min/1.73m2); Glucose 104 mg/dL (74-106); Sodium 139 mmol/L (136-145)
[2022-02-28 17:30] LABS: Potassium 6.2 mmol/L (3.5-5.1)
[2022-02-28 17:38] LABS: C-Reactive Protein 3.62 mg/dL (0.0-0.3)
== END 2022-02-28 01:40 | disposition home or self-care (01) ==
PROVIDERS: PCP Nurse Practitioner Family; Visit Provider Nurse Practitioner Acute Care
DX: E11.628 Type 2 diabetes mellitus with other skin complications (principal); L03.90 Cellulitis, unspecified; N18.9 Chronic kidney disease, unspecified
CPT/HCPCS: 36415; 80048; 85652; 86140

== ENCOUNTER 2022-03-03 10:10 | Outpatient (CLI) | payer MEDICARE, SELFPAY ==
[2022-03-03 15:38] LABS: Anion Gap 12.2 mmol/L (3-11); BUN 57 mg/dL (7-18); CO2 24.8 mmol/L (21.0-32.0); CREATININE 2.8 mg/dL (0.70-1.30); Chloride 101 mmol/L (98-107); Estimated GFR 22.79 (mL/min/1.73m2); Glucose 125 mg/dL (74-106); Potassium 5.5 mmol/L (3.5-5.1); Sodium 138 mmol/L (136-145)
== END 2022-03-03 10:11 | disposition home or self-care (01) ==
LOC: LBO 10:14
PROVIDERS: PCP Nurse Practitioner Family; Visit Provider Family Medicine
DX: E87.5 Hyperkalemia (principal)
CPT/HCPCS: 36415; 80048

== ENCOUNTER 2022-03-10 04:08 | Outpatient (CLI) | payer MEDICARE, SELFPAY ==
[2022-03-10 16:38] LABS: Anion Gap 9.7 mmol/L (3-11); BUN 62 mg/dL (7-18); CO2 28.3 mmol/L (21.0-32.0); CREATININE 2.3 mg/dL (0.70-1.30); Calcium 9.1 mg/dL (8.5-10.1); Chloride 101 mmol/L (98-107); Estimated GFR 28.59 (mL/min/1.73m2); Glucose 94 mg/dL (74-106); Potassium 4.7 mmol/L (3.5-5.1); Sodium 139 mmol/L (136-145)
== END 2022-03-10 04:09 | disposition home or self-care (01) ==
LOC: LBO 04:08
PROVIDERS: PCP Nurse Practitioner Family; Visit Provider Family Medicine
DX: E87.5 Hyperkalemia (principal)
CPT/HCPCS: 36415; 80048

== ENCOUNTER → 2022-03-18 09:19 | Outpatient (BNVA) | payer MEDICARE, SELFPAY | PROVIDERS: PCP Nurse Practitioner Family; Visit Provider Internal Medicine Cardiovascular Disease | DX: I25.110 Atherosclerotic heart disease of native coronary artery with unstable angina pectoris (principal); I50.9 Heart failure, unspecified | CPT/HCPCS: 99214; 99213 ==

== ENCOUNTER 2022-05-01 03:07 | Outpatient (CLI) | payer MEDICARE, SELFPAY ==
[2022-05-01 15:48] LABS: HCT 33.6 % (40.0-50.0); HGB 11.1 g/dL (13.5-17.5); MCV 91 fL (80-95); MPV 10.3 fL (8.0-11.0); Platelet Count 162 10^3/uL (130-400); RDW 13.4 % (11.8-14.1); RDW-SD 43.8 fL; WBC 8.85 10^3/uL (4.4-10.8)
[2022-05-01 16:10] LABS: Hemoglobin A1C 7.6 % (<5.7)
[2022-05-01 16:38] LABS: ALT 25 U/L (16-63); AST 25 U/L (15-37); Albumin 3.3 g/dL (3.4-5.0); Alkaline Phosphatase 103 U/L (46-116); Anion Gap 7.5 mmol/L (3-11); BUN 54 mg/dL (7-18); Bilirubin, Total 0.5 mg/dL (0.2-1.0); CO2 30.5 mmol/L (21.0-32.0); CREATININE 2.1 mg/dL (0.70-1.30); Calcium 9.1 mg/dL (8.5-10.1); Chloride 100 mmol/L (98-107); Estimated GFR 31.76 (mL/min/1.73m2); Ferritin 147 ng/mL (26-388); Glucose 165 mg/dL (74-106); Potassium 3.8 mmol/L (3.5-5.1); Sodium 138 mmol/L (136-145); Total Protein 7.6 g/dL (6.4-8.2)
[2022-05-01 17:08] LABS: Iron 61 ug/dL (65-175)
== END 2022-05-01 03:08 | disposition home or self-care (01) ==
LOC: LBO 03:07
PROVIDERS: PCP Nurse Practitioner Family; Visit Provider Nurse Practitioner Family
DX: I10 Essential (primary) hypertension (principal); E11.9 Type 2 diabetes mellitus without complications
CPT/HCPCS: 36415; 80053; 85027; 82728; 83036; 83540

== ENCOUNTER 2022-05-12 17:14 | Emergency (ER) | payer MEDICARE, SELFPAY ==
[2022-05-12 17:20] VITALS: BP 117/36; PULSE 60; RESP 18; TEMP 37; O2SAT 97
--- NOTE | 2022-05-12 18:08 | W.ED.GENAD ---
Discharge Plan Disposition Patient Disposition: HOME Condition: Improving Discharge Details Clinical Impression: Cellulitis of left leg Primary Care Provider: Jarrod Schultz ED Provider: Jose Castro Home Meds and New Rx's Prescriptions: New clindamycin HCl 300 mg capsule 300 mg PO Q6H 8 Days Qty: 32 0RF Continued rosuvastatin 40 mg tablet See Rx Instructions .ROUTE .COMPLEX Qty: 90 3RF Dose Instruction: TAKE ONE TABLET BY MOUTH EVERY DAY AT BEDTIME Rx Instructions: TAKE ONE TABLET BY MOUTH EVERY DAY AT BEDTIME nitroglycerin 0.4 mg tablet, sublingual 0.4 mg SL Q5-15M PRN (Reason: chest pain) Qty: 25 0RF triamcinolone acetonide 0.5 % ointment 1 applic Topical BID PRN (Reason: dermatitis) Qty: 80 1RF aspirin [Adult Aspirin Regimen] 81 mg tablet,delayed release (DR/EC) 81 mg PO DAILY (DME) BD Insulin Syringe 1 EACH syringe 1 ea Sub-Q QID Qty: 3 Rx Instructions: B/D INSULIN ULTRA-FINE 30GX0.3/ (DME) Aerochamber Plus Flow-Vu 1 EACH spacer 1 ea Miscellaneous PRN Qty: 1 0RF (DME) blood-glucose meter [FreeStyle Lite Meter] 1 EACH kit 1 ea Miscellaneous TID Qty: 1 0RF (DME) FreeStyle Lite Strips Strip 1 ea Miscellaneous QID Qty: 400 6RF Rx Instructions: 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 E11.42 (DME) FreeStyle Alfredo 2 [place] Misc See Rx Instructions .ROUTE .MEDSUPPLY Qty: 1 0RF Rx Instructions: As directed (DME) FreeStyle Alfredo 2 Sensor Kit See Rx Instructions .ROUTE .MEDSUPPLY Qty: 2 6RF Rx Instructions: As directed (DME) BD Regular Bevel [place] 21 gauge x 1 1/2 needle 1 ea Miscellaneous QID Qty: 100 6RF Rx Instructions: BD U100 29g 1/2 with safety lock insulin syringes Dx E11.49 clopidogrel 75 mg tablet 75 mg PO DAILY Qty: 90 4RF (DME) pen needle, diabetic [BD Ultra-Fine Short Pen Needle] 31 gauge x 5/16 needle See Rx Instructions .ROUTE .MEDSUPPLY Qty: 100 4RF Rx Instructions: check blood sugar qid carvedilol 25 mg tablet 25 mg PO BID Qty: 180 3RF pregabalin 150 mg capsule 150 mg PO TID Qty: 90 5RF furosemide 40 mg tablet 40 mg PO DAILY Hold Instructions: until pcp restarts insulin glargine [Basaglar KwikPen U-100 Insulin] 100 unit/mL (3 mL) insulin pen 70 unit subcut BID Qty: 90 0RF insulin aspart U-100 [Novolog Flexpen U-100 Insulin] 100 unit/mL (3 mL) insulin pen 50 unit Sub-Q AC Qty: 70 4RF hydrocodone-acetaminophen 7.5-325 mg tablet 1 tab PO BID MDD 2 tabs PRN (Reason: back pain) Qty: 56 0RF multivitamin Tablet 1 tab PO DAILY acetaminophen 500 mg Tablet 1,000 mg PO Q6H PRN Discharge Instructions Instructions: Cellulitis (ED) Medical Decision Making 67-year-old male presents from home. He has a history of recurrent lower extremity cellulitis. He is diabetic. He has now day 2 of recurrent left lower extremity cellulitis with erythema. He had a chill at home but no documented fever. He is in the midst of a work-up with referral for what he believes is GI bleed. He has not had rectal bleeding or weakness. On exam he has evidence of left pretibial cellulitis. He is otherwise well-appearing. Laboratories noted a white blood cell count of 10.5, hematocrit 31.2, platelets 131. Chemistries with BUN 62, creatinine 2.7. C-reactive protein was 23.9. Offered the patient admission, we will proceed with a trial of outpatient management and he will return tomorrow for recheck. I will place him on a course of clindamycin. He is stable and appropriate for home management at this time. HPI General Mode of arrival: wheelchair. Date/Time Provider Initiated Documentation: 05/12/22 17:42. Limitations to Documentation: no limitations. Information obtained by: patient and family. History of Present Illness 67 year old M presents to the emergency department with the chief complaint of Left pretibial cellulitis, described as moderate, Quality is described as dull and constant, and is localized to the left and lower extremity. Patient reports no radiation. Patient started experiencing this hour(s) and it has been constant. No relieving factors improve symptom(s), No exacerbating factors reported . Patient notes other (Had a chill at home). Patient did receive the following treatments prior to arrival, none Related Data Home Medications Medication Instructions Recorded Confirmed insulin syringe-needle U-100 1 mL ##3 10/14/16 05/12/22 26 x 1/2 (BD Insulin Syringe) inhalational spacing device #1 unit 03/15/18 05/12/22 (Aerochamber Plus Flow-Vu) blood-glucose meter (FreeStyle ##1 05/21/18 05/12/22 Lite Meter kit) blood sugar diagnostic (FreeStyle #400 strips 09/15/19 05/12/22 Lite Strips) acetaminophen 500 mg tablet 1,000 mg PO Q6H PRN 06/14/20 05/12/22 multivitamin 1 tab PO DAILY 06/14/20 05/12/22 flash glucose scanning reader #1 ea 04/09/21 05/12/22 (FreeStyle Alfredo 2 [place]) flash glucose sensor (FreeStyle #2 ea 04/09/21 05/12/22 Alfredo 2 Sensor kit) needle (disp) 21 G 21 gauge x 1 #100 ea 04/12/21 05/12/22 1/2 (BD Regular [place]vel [place]) clopidogrel 75 mg tablet 75 mg PO DAILY #90 tabs 05/28/21 05/12/22 aspirin 81 mg tablet,delayed 81 mg PO DAILY 08/12/21 05/12/22 release (Adult Aspirin Regimen) pen needle, diabetic 31 gauge x #100 ea 08/15/21 05/12/22/16 (BD Ultra-Fine Short Pen Needle) carvedilol 25 mg tablet 25 mg PO BID #180 tabs 10/16/21 05/12/22 nitroglycerin 0.4 mg sublingual 0.4 mg sublingual Q5-15M PRN chest 11/27/21 05/12/22 tablet pain #25 tabs rosuvastatin 40 mg tablet See Rx Instructions .Route 11/27/21 05/12/22 .COMPLEX #90 tabs triamcinolone acetonide 0.5 % 1 applic topical BID PRN 11/27/21 05/12/22 topical ointment dermatitis #80 grams pregabalin 150 mg capsule 150 mg PO TID #90 caps 12/10/21 05/12/22 furosemide 40 mg tablet 40 mg PO DAILY 01/31/22 05/12/22 insulin aspart U-100 100 unit/mL 50 unit (0.5 mL) subcut AC #70 mL 05/02/22 05/12/22 (3 mL) subcutaneous pen (Novolog Flexpen U-100 Insulin aspart) insulin glargine 100 unit/mL (3 70 unit (0.7 mL) subcut BID #90 mL 05/02/22 05/12/22 mL) subcutaneous pen (Basaglar KwikPen U-100 Insulin) hydrocodone 7.5 mg-acetaminophen 1 tab PO BID PRN back pain #56 tabs 05/07/22 05/12/22 325 mg tablet clindamycin HCl 300 mg capsule 300 mg PO Q6H 8 days #32 caps 05/12/22 Previous Rx's Medication Instructions Recorded inhalational spacing device #1 unit 03/15/18 (Aerochamber Plus Flow-Vu) blood-glucose meter (FreeStyle ##1 05/21/18 Lite Meter kit) blood sugar diagnostic (FreeStyle #400 strips 09/15/19 Lite Strips) flash glucose scanning reader #1 ea 04/09/21 (FreeStyle Alfredo 2 [place]) flash glucose sensor (FreeStyle #2 ea 04/09/21 Alfredo 2 Sensor kit) needle (disp) 21 G 21 gauge x 1 #100 ea 04/12/2109/29 (BD Regular [place]vel [place]) clopidogrel 75 mg tablet 75 mg PO DAILY #90 tabs 05/28/21 pen needle, diabetic 31 gauge x #100 ea 08/15/2102/10 (BD Ultra-Fine Short Pen Needle) carvedilol 25 mg tablet 25 mg PO BID #180 tabs 10/16/21 nitroglycerin 0.4 mg sublingual 0.4 mg sublingual Q5-15M PRN chest 11/27/21 tablet pain #25 tabs rosuvastatin 40 mg tablet See Rx Instructions .Route 11/27/21 .COMPLEX #90 tabs triamcinolone acetonide 0.5 % 1 applic topical BID PRN 11/27/21 topical ointment dermatitis #80 grams pregabalin 150 mg capsule 150 mg PO TID #90 caps 12/10/21 insulin aspart U-100 100 unit/mL 50 unit (0.5 mL) subcut AC #70 mL 05/02/22 (3 mL) subcutaneous pen (Novolog Flexpen U-100 Insulin aspart) insulin glargine 100 unit/mL (3 70 unit (0.7 mL) subcut BID #90 mL 05/02/22 mL) subcutaneous pen (Basaglar KwikPen U-100 Insulin) hydrocodone 7.5 mg-acetaminophen 1 tab PO BID PRN back pain #56 tabs 05/07/22 325 mg tablet clindamycin HCl 300 mg capsule 300 mg PO Q6H 8 days #32 caps 05/12/22 Allergies Allergy/AdvReac Type Severity Reaction Status Date / Time cephalexin monohydrate Allergy Severe SOB Verified 05/12/22 17:24 [From Keflex] Penicillins Allergy Unknown Verified 05/12/22 17:24 General Stated Complaint: Cellulitis MIRIAM: 3 Review of Systems Narrative: Glucose was elevated at home but responded to insulin. Chilled x1, has not noted a fever. Has a question of GI bleed for which she has follow-up this coming week. 8 systems were reviewed and otherwise negative PFSH All Active Problems (Updated 05/12/22 @ 19:45 by Jose Castro MD) Cellulitis of left leg (Acute) Hyperkalemia (Acute 07/26/14) Cellulitis (Acute) Diabetic foot infection (Acute) Leg wound, left (Acute) Diabetic retinopathy (Acute ~12/2021) B/L MODERATE-01/17 Edema (Acute) Gout (Chronic) 08/2021-diagnosed by rheumatology at [facility]-probable gout tophi of hands Obesity (Chronic) Diabetes mellitus type 2, insulin dependent (Acute) with nephropathy Chronic kidney disease (CKD) (Chronic) 08/2021- Cr 1.7 Hand arthritis (Acute) Amputation of toe (Acute) Cellulitis of foot, right (Acute) Diabetes mellitus type 2, insulin dependent (Acute) Right heart failure (Acute) Diabetic peripheral neuropathy (Chronic) Diabetic peripheral angiopathy (Chronic) Hypertension (Chronic) Chronic pain syndrome (Chronic) low back pain, drug contract at [facility]-V PMS and drug screen on 08/1221-patient on chronic hydrocodone Coronary artery disease 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 : not ischemia related ([facility]) Peripheral autonomic neuropathy in disorders classified elsewhere (Chronic 09/15/14) Hyperlipidemia (Chronic) Medical History Congestive heart failure Diabetic foot ulcer DM (diabetes mellitus) 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 secondary to diabetic ulcer, angiopathy Laceration of lower leg with foreign body Lymphedema Obesity Proliferative diabetic retinopathy of both eyes without macular edema associated with diabetes mellitus due to underlying condition (01/18/18) 01/18/18-[facility] [place] 01/31/19-[facility] [place] Scrotal hematoma (07/26/14) A. S/p hydrocelectomy 07/24/14 Stroke (~2008) TIA (transient ischemic attack) Surgical History H/O surgical procedure A. Hydrocelectomy 07/24/2014 History of cataract removal with insertion of prosthetic lens History of hydrocelectomy (07/24/14) right S/P CABG x 3 (08/30/17) [facility] [place] 08-29-2017 : no fup needed Family History Mother No problems noted. Father Diabetes Myocardial infarction Heart disease Sister Diabetes Social History Smoking/Tobacco Use Status: Former Tobacco Use Quit Date: 09/28/83 Tobacco: How many years used: 5 Smoking risk assessment performed?: Yes Alcohol Intake: current Alcohol Intake frequency: holidays/special occasions only Drug use: Occasionally Substance use type: marijuana Pets and animals: Yes Pets and animals: cat(s) and dog(s) What type of physical activity do you participate in: none Do you feel safe at home: Yes Do you feel safe in your relationship?: Yes Exam Narrative Exam Narrative: GEN: awake, alert, oriented 3. Pleasant, well groomed, interactive. HEAD: Normocephalic, atraumatic ENT: Mucous membranes moist, oropharynx unremarkable, External ear exam unremarkable EYES: PERRL, EOMI NECK: Full ROM, no RICKY, no menigismus CHEST/RESP: Nontender, clear to auscultation bilateral, no wheeze/rhonchi/rales CARDIOVASCULAR: RRR, no murmur, rub lisa. 2+ Rad pulse bilateral ABDOMEN: Soft, nontender, no mass. +Bowel sounds EXT: Full ROM, bilateral pretibial edema, the left area has some anterior erythema that blanches to touch there is a serous filled blister present mid tibia. Healing ulceration left great toe. Neuro: Grossly normal neurologic exam, conversant, interactive. Psych: Speech fluent, thoughts congruent, affect normal Course Vital Signs Vital signs: Vital Signs Temperature 37 C 05/12/22 17:20 Pulse 60 05/12/22 17:20 Respiratory Rate 18 05/12/22 17:20 Blood Pressure 117/36 L 05/12/22 17:20 Pulse Oximetry 97 05/12/22 17:20 Temperature 37 C 05/12/22 17:20 Temperature Source Temporal Artery Scan 05/12/22 17:20 Pulse 60 05/12/22 17:20 Respiratory Rate 18 05/12/22 17:20 Respiratory Effort Non-Labored 05/12/22 17:25 Blood Pressure 117/36 L 05/12/22 17:20 Blood Pressure Position Sitting 05/12/22 17:20 Pulse Oximetry 97 05/12/22 17:20 Oxygen Delivery Method Room Air 05/12/22 17:20 Oxygen Flow Rate 0 05/12/22 17:20 PAWSS Have you Been Recently Intoxicated or Drunk Within the Last 30 days?: No Have you Ever Experienced Previous Episodes of Alcohol Withdrawal?: No Have you ever Experienced Withdrawal Seizures?: No Have you ever Experienced Delirium Tremens(DT)s?: No Have you ever undergone Alcohol Rehabilitation Treatment (i.e, inpt ot outpatient treatment programs)?: No Have you ever Experienced Blackouts?: No Have you ever Combined Alcohol with other Downers within the last 90 days?: No Have you ever Combined Alcohol with any other Substance of Abuse during the last 90 days?: No Positive Blood Alcohol level on Presentation? [PCS.BAL]: No Evidence of Increased Autonomic Activity (i.e. HR>120, tremor, sweating, agitation, nausea)?: No Result: 0
[2022-05-12 18:35] LABS: Lactate 1.1 mmol/L (0.6-1.4)
[2022-05-12 18:36] LABS: Abs Immature Grans 0.04 10^3/uL (0.0-0.06); Absolute Basophil Count 0.04 10^3/uL (0.0-0.2); Absolute Lymphocyte Count 0.74 10^3/uL (1.2-3.4); Absolute Monocyte Count 1.16 10^3/uL (0.1-0.8); Absolute Neutrophil Count 8.41 10^3/uL (1.2-6.7); Basophils % 0.4; Eosinophils % 1.9; HCT 31.7 % (40.0-50.0); HGB 10.6 g/dL (13.5-17.5); Immature Grans % 0.4; MCH 30.1 pg (27.0-33.0); MCHC 33.4 % (32.0-36.0); MCV 90 fL (80-95); MPV 10.6 fL (8.0-11.0); Neutrophils % 79.3; Platelet Count 151 10^3/uL (130-400); RBC 3.52 10^6/uL (4.36-5.78); RDW 13.8 % (11.8-14.1); RDW-SD 45.5 fL; WBC 10.59 10^3/uL (4.4-10.8)
[2022-05-12] MEDS: Normal Saline 1,000 ML 125 ML IV (18:37)
[2022-05-12 18:55] LABS: ALT 23 U/L (16-63); AST 22 U/L (15-37); Alkaline Phosphatase 98 U/L (46-116); Anion Gap 6.4 mmol/L (3-11); BUN 62 mg/dL (7-18); Bilirubin, Total 0.9 mg/dL (0.2-1.0); C-Reactive Protein 23.99 mg/dL (0.0-0.3); CO2 35.6 mmol/L (21.0-32.0); CREATININE 2.7 mg/dL (0.70-1.30); Chloride 92 mmol/L (98-107); Estimated GFR 23.76 (mL/min/1.73m2); Glucose 190 mg/dL (74-106); Potassium 3.9 mmol/L (3.5-5.1); Sodium 134 mmol/L (136-145); Total Protein 7.7 g/dL (6.4-8.2)
[2022-05-12] MEDS: CLINDAMYCIN 600 MG/50 ML BAG 100 MG IVPB (19:27)
[2022-05-12] MEDS: Clindamycin 150 MG CAP, 12 CAPS/BTL 450 MG PO (19:58)
== END 2022-05-12 19:59 | disposition home or self-care (01) ==
PROVIDERS: Emergency Provider Emergency Medicine; PCP Nurse Practitioner Family
DX: L03.116 Cellulitis of left lower limb (principal); L97.529 Non-pressure chronic ulcer of other part of left foot with unspecified severity; S80.822A Blister (nonthermal), left lower leg, initial encounter; I50.9 Heart failure, unspecified; E11.9 Type 2 diabetes mellitus without complications; Z86.73 Personal history of transient ischemic attack (TIA), and cerebral infarction without residual deficits; Z87.891 Personal history of nicotine dependence; X58.XXXA Exposure to other specified factors, initial encounter
CPT/HCPCS: 36415; 80053; 87040; 96361; 96365; 99284; 83605; 85025; 86140

== ENCOUNTER 2022-05-27 03:33 | Outpatient (CLI) | payer MEDICARE, SELFPAY ==
[2022-05-27 16:16] LABS: Abs Immature Grans 0.03 10^3/uL (0.0-0.06); Absolute Basophil Count 0.02 10^3/uL (0.0-0.2); Absolute Eosinophil Count 0.41 10^3/uL (0.0-0.7); Absolute Lymphocyte Count 1.14 10^3/uL (1.2-3.4); Absolute Monocyte Count 0.76 10^3/uL (0.1-0.8); Absolute Neutrophil Count 5.65 10^3/uL (1.2-6.7); Basophils % 0.2; Eosinophils % 5.1; HCT 30.9 % (40.0-50.0); HGB 10.3 g/dL (13.5-17.5); Immature Grans % 0.4; Lymphocytes % 14.2; MCH 29.9 pg (27.0-33.0); MCHC 33.3 % (32.0-36.0); MCV 90 fL (80-95); MPV 10.2 fL (8.0-11.0); Monocytes % 9.5; Neutrophils % 70.6; Platelet Count 163 10^3/uL (130-400); RBC 3.44 10^6/uL (4.36-5.78); RDW 13.1 % (11.8-14.1); RDW-SD 42.6 fL; WBC 8.01 10^3/uL (4.4-10.8)
[2022-05-27 16:51] LABS: Anion Gap 5.5 mmol/L (3-11); BUN 50 mg/dL (7-18); CO2 29.5 mmol/L (21.0-32.0); CREATININE 2.1 mg/dL (0.70-1.30); Chloride 100 mmol/L (98-107); Estimated GFR 34.08 (mL/min/1.73m2); Glucose 235 mg/dL (74-106); Potassium 4.2 mmol/L (3.5-5.1); Sodium 135 mmol/L (136-145)
[2022-05-27 16:57] LABS: Hemoglobin A1C 7.9 % (<5.7)
== END 2022-05-27 03:34 | disposition home or self-care (01) ==
LOC: LBO 03:33
PROVIDERS: PCP Nurse Practitioner Family; Visit Provider Nurse Practitioner Family
DX: N18.9 Chronic kidney disease, unspecified (principal); I10 Essential (primary) hypertension; E11.9 Type 2 diabetes mellitus without complications
CPT/HCPCS: 36415; 80048; 83036; 85025

== ENCOUNTER 2022-06-26 03:38 | Outpatient (CLI) | payer MEDICARE, SELFPAY ==
--- NOTE | 2022-06-26 07:30 | DI.RAD_ITS ---
Exam(s) XR FOOT LT COMPLETE EXAM: XR FOOT LT COMPLETE CLINICAL HISTORY: longstanding hallucal IPJ ulcer,l97.509. TECHNIQUE: 2D digital imaging was performed of the left foot. Three images were obtained. AP, obli que and lateral views were obtained. COMPARISON: CR,XR XR FOOT LT COMPLETE from 02/20/2022 FINDINGS: BONES: No acute fracture is present. No bony destructive lesion is seen. There are stable postsurgica l changes of resection of the 5th toe to the level of the midshaft of the 5th metatarsal. No radiogr aphic evidence to suggest osteomyelitis. There is a small plantar spur. Calcification is seen at th e Achilles insertion site. JOINTS: No dislocation present. Degenerative changes are seen in the foot particularly at the tarsome tatarsal joints. SOFT TISSUE: There is soft tissue swelling of the foot. Vascular calcifications are present. IMPRESSION: No change in appearance of the foot. No radiographic findings to suggest osteomyelitis. DATA REPOSITORY: RADIATION DOSE DELIVERED:
== END 2022-06-26 03:58 ==
PROVIDERS: PCP Nurse Practitioner Family; Visit Provider Podiatrist Foot & Ankle Surgery
DX: L97.529 Non-pressure chronic ulcer of other part of left foot with unspecified severity (principal)
CPT/HCPCS: 73630

== ENCOUNTER 2022-06-29 08:18 | Emergency (ER) | payer MEDICARE, SELFPAY ==
[2022-06-29 08:30] VITALS: BP 119/65; PULSE 66; RESP 18; TEMP 36.5; O2SAT 96
--- NOTE | 2022-06-29 08:30 | RT.EKG_ITS ---
APPROVED REPORT Exam: Resting ECG Reason for Exam: epigastric pain Patient Location: E HR:65 bpm ECG Measurements Heart Rate 65 AXIS HI 248 P -55 QRSd 177 QRS 84 QT 506 T -8 QTc 511 Conclusion Sinus or ectopic atrial rhythm...P axis (-45,135) Atrial premature complex...SV complex w/ short R-R interval Prolonged HI interval...HI >220, V-rate 50- 90 Right bundle branch block...QRSd>120, terminal axis(90,270) Inferolateral infarct, age indeterminate...Q >30mS, T neg, inf-lat leads
[2022-06-29 09:55] LABS: Bilirubin Negative (Negative); Blood Trace-intact (Negative); Clarity Clear (Clear); Glucose Negative (Negative); Ketones Negative (Negative); Leukocyte Esterase Negative (Negative); Nitrite Negative (Negative); Urobilinogen 0.2 EU/dL (Up TO 0.2); pH 7.5 (5-8)
[2022-06-29 10:00] LABS: Abs Immature Grans 0.02 10^3/uL (0.0-0.06); Absolute Basophil Count 0.03 10^3/uL (0.0-0.2); Absolute Eosinophil Count 0.27 10^3/uL (0.0-0.7); Absolute Lymphocyte Count 0.97 10^3/uL (1.2-3.4); Absolute Monocyte Count 0.74 10^3/uL (0.1-0.8); Absolute Neutrophil Count 6.51 10^3/uL (1.2-6.7); Basophils % 0.4; Eosinophils % 3.2; HCT 37.2 % (40.0-50.0); HGB 12.6 g/dL (13.5-17.5); Immature Grans % 0.2; Lymphocytes % 11.4; MCH 29.5 pg (27.0-33.0); MCHC 33.9 % (32.0-36.0); MCV 87 fL (80-95); MPV 11.1 fL (8.0-11.0); Monocytes % 8.7; Neutrophils % 76.1; Platelet Count 130 10^3/uL (130-400); RBC 4.27 10^6/uL (4.36-5.78); RDW 13.4 % (11.8-14.1); RDW-SD 42.4 fL; WBC 8.54 10^3/uL (4.4-10.8)
[2022-06-29 10:04] LABS: Bacteria Rare HPF (Negative); C & S Indicated? No; Casts Negative LPF (Negative); Crystals Negative HPF (Negative); Epithelial Cells Moderate HPF (Negative); Mucus Trace (Negative); WBC 0-2 HPF (0-5)
[2022-06-29 10:41] LABS: ALT 25 U/L (16-63); AST 25 U/L (15-37); Albumin 4.3 g/dL (3.4-5.0); Alkaline Phosphatase 98 U/L (46-116); Anion Gap 8.4 mmol/L (3-11); BUN 63 mg/dL (7-18); Bilirubin, Total 0.7 mg/dL (0.2-1.0); CO2 38.6 mmol/L (21.0-32.0); CREATININE 2.5 mg/dL (0.70-1.30); Chloride 87 mmol/L (98-107); Estimated GFR 27.64 (mL/min/1.73m2); Glucose 258 mg/dL (74-106); Lipase 101 U/L (73-393); Magnesium 1.9 mg/dL (1.8-2.4); Potassium 3.6 mmol/L (3.5-5.1); Sodium 134 mmol/L (136-145); Total Protein 8.2 g/dL (6.4-8.2)
--- NOTE | 2022-06-29 10:45 | DI.CT_ITS ---
Exam(s) CT ABDOMEN PELVIS WO EXAM: CT ABDOMEN PELVIS WO CLINICAL HISTORY: abd/epigastric pain. TECHNIQUE: Imaging Protocol: Axial computed tomography images with coronal and sagittal reformatted images were created and reviewed CONTRAST MATERIAL: Intravenous: none Oral: None COMPARISON: CT CT CHEST PE ABD PELVIS W from 05/15/2019 FINDINGS: VISUALIZED LUNG BASES: Tiny 1 millimeter nodule in the lateral basal segment of the right lower lobe. No pleural effusions.. No pericardial effusion. Sternotomy wires are again noted. ABDOMEN: There is no ascites. LIVER: Mild hepatic steatosis. There are no discrete focal hepatic lesions identified. GALLBLADDER/BILIARY: Gallstones are again noted in the gallbladder lumen. Average size of these gall stones is 4 millimeters. Similar to previous. There is no gallbladder wall edema nor pericholecysti c fluid. CBD is not dilated and there are no obvious calculi seen within the nondilated CBD. PANCREAS: No evidence of pancreatic mass nor dilatation of the pancreatic duct. SPLEEN: Spleen is not enlarged. No obvious intrasplenic lesions. Splenule noted medial to the anter ior aspect of the spleen, unchanged. ADRENALS: There are no significant adrenal masses. KIDNEYS:Symmetrical perinephric stranding is unchanged from previous study. There are no new focal r enal findings. No solid renal masses. No calculi nor hydronephrosis. . ABDOMINAL AORTA: Not enlarged. Retroaortic left renal vein again noted. LYMPH NODES: There is no retroperitoneal nor paraaortic adenopathy. ABDOMINAL WALL: Small fat containing umbilical hernia. No bowel loops therein. No bowel obstruction . There is a significant cellulitis pattern over the right abdominal wall below the level umbilicus, previously present in 2019 but increased. There is no drainable fluid collection at this level. Si milar findings are not seen on the left side of the abdominal wall. GI: There is no evidence of bowel obstruction, free air, nor bflyf-chocdpule-uummqakwiqy abscess. PELVIS: LYMPH NODES: There is no intrapelvic nor inguinal adenopathy. GI: No evidence of appendicitis.Abundant fecal material in the colon. No significant diverticular di sease. URINARY BLADDER: No calculi nor obvious masses evident REPRODUCTIVE: Enlarged prostate gland. Measures 5.4 cm wide by 5 cm AP. No obturator adenopathy anna dent. Seminal vesicles unremarkable. Bilateral calcified vas deferens. This is usually associated with diabetes. OSSEOUS: No significant osseous lesions. Chronic disc space narrowing L5-S1 level. No listhesis. IMPRESSION: 1. Compared to CT scan of April 2019 there is again noted cholelithiasis without evidence of acute c holecystitis nor dilatation of the biliary tree, both intra and extrahepatic. 2. Right sided subcutaneous stranding and overlying skin thickening, slightly more so than April 29 1 099. Suspect that this is a chronic injection site. There is, however, no drainable fluid collectio n at this level. Similar findings are not seen left of center. 3. Enlarged prostate gland (5 cm). Calcified vas deferens bilaterally which is usually associated wi th diabetes. RADIATION DOSE DELIVERED: 1,592.95mGy.cm Total DLP DATA REPOSITORY: All CT scans at this facility are submitted to the National Radiology Data Registry (NRDR) Dose Index Registry (DIR) with the [employer] (ACR). RADIATION OPTIMIZATION: All CT scans at this facility use at least one of these dose optimization te chniques: automated exposure control; mA and/or kV adjustment per patient size (includes targeted exa ms where dose is matched to clinical indication); or iterative reconstruction.
[2022-06-29 11:23] LABS: Troponin I 50 ng/L (<or=60)
[2022-06-29 11:34] VITALS: BP 135/69; PULSE 64; TEMP 36.7; O2SAT 94
--- NOTE | 2022-06-29 11:46 | DI.VRAD_ITS ---
PROCEDURE INFORMATION: Exam: CT Abdomen And Pelvis Without Contrast Exam date and time: 06/29/2022 11:18 AM Age: 67 years old Clinical indication: Other: Abd/epigastric pain; Patient HX: Appendectomy over 10 years ago TECHNIQUE: Imaging protocol: Computed tomography of the abdomen and pelvis without contrast. COMPARISON: CT CHEST PE ABD PELVIS W 05/15/2019 6:08 PM FINDINGS: Liver: Normal. No mass. Gallbladder and bile ducts: Gallstones in the gallbladder Pancreas: Normal. No ductal dilation. Spleen: Normal. No splenomegaly. Adrenal glands: Normal. No mass. Kidneys and ureters: Bilateral renal atrophy. There is no evidence of renal or ureteral calcifications. Stomach and bowel: Findings consistent with constipation. . No obstruction Appendix: Appendectomy Intraperitoneal space: Unremarkable. No free air. No significant fluid collection. Vasculature: Unremarkable. No abdominal aortic aneurysm. Lymph nodes: Unremarkable. No enlarged lymph nodes. Urinary bladder: Distended bladder 15 cm Reproductive: The prostate is enlarged, greater than 5 cm. Recommend urology consult . Bones/joints: Unremarkable. No acute fracture. Soft tissues: Ventral hernia contains fat IMPRESSION: The prostate is enlarged, greater than 5 cm. Recommend urology consult . Dictated and Authenticated by: Elham Sood MD. Ordering:PANDA Middleton MD
--- NOTE | 2022-06-29 12:53 | W.ED.GENAD ---
Discharge Plan Disposition Patient Disposition: HOME Condition: Stable Discharge Details Clinical Impression: Abdominal pain, epigastric, Chronic kidney disease (CKD), Obesity, Diabetes mellitus type 2, insulin dependent Primary Care Provider: Jarrod Schultz ED Provider: Kane Rowland Home Meds and New Rx's Prescriptions: Continued rosuvastatin 40 mg tablet See Rx Instructions .ROUTE .COMPLEX Qty: 90 3RF Dose Instruction: TAKE ONE TABLET BY MOUTH EVERY DAY AT BEDTIME Rx Instructions: TAKE ONE TABLET BY MOUTH EVERY DAY AT BEDTIME nitroglycerin 0.4 mg tablet, sublingual 0.4 mg SL Q5-15M PRN (Reason: chest pain) Qty: 25 0RF triamcinolone acetonide 0.5 % ointment 1 applic Topical BID PRN (Reason: dermatitis) Qty: 80 1RF aspirin [Adult Aspirin Regimen] 81 mg tablet,delayed release (DR/EC) 81 mg PO DAILY torsemide 20 mg tablet 20 mg PO DAILY Qty: 90 4RF (DME) BD Insulin Syringe 1 EACH syringe 1 ea Sub-Q QID Qty: 3 Rx Instructions: B/D INSULIN ULTRA-FINE 30GX0.3/ (DME) Aerochamber Plus Flow-Vu 1 EACH spacer 1 ea Miscellaneous PRN Qty: 1 0RF (DME) blood-glucose meter [FreeStyle Lite Meter] 1 EACH kit 1 ea Miscellaneous TID Qty: 1 0RF (DME) FreeStyle Lite Strips Strip 1 ea Miscellaneous QID Qty: 400 6RF Rx Instructions: 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 E11.42 (DME) FreeStyle Alfredo 2 [place] Misc See Rx Instructions .ROUTE .MEDSUPPLY Qty: 1 0RF Rx Instructions: As directed (DME) FreeStyle Alfredo 2 Sensor Kit See Rx Instructions .ROUTE .MEDSUPPLY Qty: 2 6RF Rx Instructions: As directed (DME) BD Regular Bevel Docena 21 gauge x 1 1/2 needle 1 ea Miscellaneous QID Qty: 100 6RF Rx Instructions: BD U100 29g 1/2 with safety lock insulin syringes Dx E11.49 (DME) pen needle, diabetic [BD Ultra-Fine Short Pen Needle] 31 gauge x 5/16 needle See Rx Instructions .ROUTE .MEDSUPPLY Qty: 100 4RF Rx Instructions: check blood sugar qid carvedilol 25 mg tablet 25 mg PO BID Qty: 180 3RF insulin glargine [Basaglar KwikPen U-100 Insulin] 100 unit/mL (3 mL) insulin pen 70 unit subcut BID Qty: 90 0RF insulin aspart U-100 [Novolog Flexpen U-100 Insulin] 100 unit/mL (3 mL) insulin pen 50 unit Sub-Q AC Qty: 70 4RF hydrocodone-acetaminophen 7.5-325 mg tablet 1 tab PO BID MDD 2 tabs PRN (Reason: back pain) Qty: 56 0RF clopidogrel 75 mg tablet 75 mg PO DAILY Qty: 90 1RF chlorthalidone 25 mg tablet 25 mg PO DAILY Qty: 90 0RF pregabalin 150 mg capsule 150 mg PO TID Qty: 90 5RF multivitamin Tablet 1 tab PO DAILY acetaminophen 500 mg Tablet 1,000 mg PO Q6H PRN Discharge Instructions Instructions: Epigastric Pain (ED) Additional Instructions: Slowly advance your diet as tolerated and return immediately for any new or significant worsening of your symptoms. On today's work-up it was noted that you had constipation and enlarged prostate. We have put in referrals to general surgery for your epigastric pain and reassessment along with urology. Please continue to take your pain medication as previously prescribed and you may take up to 3000 mg of acetaminophen in a 24-hour period. Otherwise continue to take your medication as prescribed and monitor your blood sugar closely given that it was noted to be elevated today. Referrals: [facility] [Provider Group] - 1 week (Please call the office for arrangement of your follow-up appointment. ) [facility] [Provider Group] - 2 weeks (Please call the urology office for arrangement of follow-up appointment due to your enlarged prostate seen on CT scan.) Jarrod Schultz NP [Primary Care Provider] - 1 week (Please call the office for arrangement of follow-up appointment due to continued epigastric discomfort and also noting elevated blood sugar.) Discharge Data Discharge Date/Time-TO BE ENTERED AT DEPARTURE: 06/29/22 13:42 Medical Decision Making Patient presenting to the emergency department for chief complaint of epigastric pain for the past 4 to 5 days. He states he is used multiple antacids, adjusted his diet with no relief. Patient does state undergoing shortness of breath but no change, patient reports that his blood sugars have been running higher than normal but not severely elevated, denies fever chills, denies vomiting, bloody emesis, black or tarry stools. Physical exam shows very mild tenderness to the epigastrium and left lower quadrants of the abdomen. Patient is obese making abdominal exam somewhat difficult but no other worrisome findings were noted on exam. Patient does have significant past medical history of insulin-dependent diabetes, chronic kidney disease, chronic pain, and angina. We will perform laboratory work-up including CT imaging. Will include EKG and troponin for consideration of possible atypical ME. Please see physician interpretation for full interpretation of EKG. Patient in sinus rhythm with no acute STEMI findings noted. EKG is relatively unchanged from previous EKG. Labs show a chronic but stable anemia, CMP shows low chloride and high carbon oxide normal anion gap, BUN of 63 with creatinine of 2.5 with a GFR of 27 which is near patient's baseline. Glucose of 258 which patient reports is not completely abnormal but slightly elevated. Unremarkable LFTs. troponin is nondetected and lipase is within normal range. CT imaging shows some constipation and enlarged prostate. Otherwise no emergent or life-threatening findings were noted. Discussed these findings with patient along with possible laxatives he could use to help with his constipation. Encourage continue use of medication and controlling his blood sugar. Will place patient on follow-up list for general surgery for consideration of possible need of upper endoscopy given significant epigastric discomfort differential diagnosis to include gastroparesis versus acute gastritis, versus esophagitis. Patient was also placed on urology follow-up to follow-up for CT findings of enlarged prostate with radiology recommending follow-up. Also will have patient follow-up with primary care provider for elevated glucose. After discussion of diagnosis and plan of care patient has no further needs, questions, or concerns and states clear understanding to return to the emergency department for any worsening symptoms. This documentation was generated using [employer] dictation system, please disregard any oddities of phrase or misspellings. Imaging Data Radiologic Study: Attestation: I personally reviewed and interpreted this imaging study as follows: Imaging: CT Scan Radiologist's impression: FINDINGS: Liver: Normal. No mass. Gallbladder and bile ducts: Gallstones in the gallbladder Pancreas: Normal. No ductal dilation. Spleen: Normal. No splenomegaly. Adrenal glands: Normal. No mass. Kidneys and ureters: Bilateral renal atrophy. There is no evidence of renal or ureteral calcifications. Stomach and bowel: Findings consistent with constipation. . No obstruction Appendix: Appendectomy Intraperitoneal space: Unremarkable. No free air. No significant fluid collection. Vasculature: Unremarkable. No abdominal aortic aneurysm. Lymph nodes: Unremarkable. No enlarged lymph nodes. Urinary bladder: Distended bladder 15 cm Reproductive: The prostate is enlarged, greater than 5 cm. Recommend urology consult . Bones/joints: Unremarkable. No acute fracture. Soft tissues: Ventral hernia contains fat IMPRESSION: The prostate is enlarged, greater than 5 cm. Recommend urology consult . Lab Data Lab results reviewed: Yes I reviewed the patient's lab results. HPI General Mode of arrival: ambulatory. Date/Time Provider Initiated Documentation: 06/29/22 08:38. Limitations to Documentation: no limitations. Information obtained by: patient, family, RN notes reviewed and old records reviewed. History of Present Illness 67 year old M presents to the emergency department with the chief complaint of Abdominal pain, described as moderate, with intensity rated at 8. Quality is described as sharp, and is localized to the abdomen. Patient reports no radiation. Patient started experiencing this day(s) (5) and it has been constant. No relieving factors improve symptom(s), No exacerbating factors reported . Patient notes no other symptoms.. Related Data Home Medications Medication Instructions Recorded Confirmed insulin syringe-needle U-100 1 mL ##3 10/14/16 06/29/22 26 x 1/2 (BD Insulin Syringe) inhalational spacing device #1 unit 03/15/18 06/29/22 (Aerochamber Plus Flow-Vu) blood-glucose meter (FreeStyle ##1 05/21/18 06/29/22 Lite Meter kit) blood sugar diagnostic (FreeStyle #400 strips 09/15/19 06/29/22 Lite Strips) acetaminophen 500 mg tablet 1,000 mg PO Q6H PRN 06/14/20 06/29/22 multivitamin 1 tab PO DAILY 06/14/20 06/29/22 flash glucose scanning reader #1 ea 04/09/21 06/29/22 (FreeStyle Alfredo 2 [place]) flash glucose sensor (FreeStyle #2 ea 04/09/21 06/29/22 Alfredo 2 Sensor kit) needle (disp) 21 G 21 gauge x 1 #100 ea 04/12/21 06/29/22 1/2 (BD Regular Bevel Docena) aspirin 81 mg tablet,delayed 81 mg PO DAILY 08/12/21 06/29/22 release (Adult Aspirin Regimen) pen needle, diabetic 31 gauge x #100 ea 08/15/21 06/29/2202/10 (BD Ultra-Fine Short Pen Needle) carvedilol 25 mg tablet 25 mg PO BID #180 tabs 10/16/21 06/29/22 nitroglycerin 0.4 mg sublingual 0.4 mg sublingual Q5-15M PRN chest 11/27/21 06/29/22 tablet pain #25 tabs rosuvastatin 40 mg tablet See Rx Instructions .Route 11/27/21 06/29/22 .COMPLEX #90 tabs triamcinolone acetonide 0.5 % 1 applic topical BID PRN 11/27/21 06/29/22 topical ointment dermatitis #80 grams insulin aspart U-100 100 unit/mL 50 unit (0.5 mL) subcut AC #70 mL 05/02/22 06/29/22 (3 mL) subcutaneous pen (Novolog Flexpen U-100 Insulin aspart) insulin glargine 100 unit/mL (3 70 unit (0.7 mL) subcut BID #90 mL 05/02/22 06/29/22 mL) subcutaneous pen (Basaglar KwikPen U-100 Insulin) torsemide 20 mg tablet 20 mg PO DAILY #90 tabs 05/16/22 06/29/22 hydrocodone 7.5 mg-acetaminophen 1 tab PO BID PRN back pain #56 tabs 06/06/22 06/29/22 325 mg tablet clopidogrel 75 mg tablet 75 mg PO DAILY #90 tabs 06/17/22 06/29/22 chlorthalidone 25 mg tablet 25 mg PO DAILY #90 tabs 06/19/22 06/29/22 pregabalin 150 mg capsule 150 mg PO TID #90 caps 06/25/22 06/29/22 Previous Rx's Medication Instructions Recorded inhalational spacing device #1 unit 03/15/18 (Aerochamber Plus Flow-Vu) blood-glucose meter (FreeStyle ##1 05/21/18 Lite Meter kit) blood sugar diagnostic (FreeStyle #400 strips 09/15/19 Lite Strips) flash glucose scanning reader #1 ea 04/09/21 (FreeStyle Alfredo 2 [place]) flash glucose sensor (FreeStyle #2 ea 04/09/21 Alfredo 2 Sensor kit) needle (disp) 21 G 21 gauge x 1 #100 ea 04/12/21 1 (BD Regular Bevel Docena) pen needle, diabetic 31 gauge x #100 ea 08/15/2102/10 (BD Ultra-Fine Short Pen Needle) carvedilol 25 mg tablet 25 mg PO BID #180 tabs 10/16/21 nitroglycerin 0.4 mg sublingual 0.4 mg sublingual Q5-15M PRN chest 11/27/21 tablet pain #25 tabs rosuvastatin 40 mg tablet See Rx Instructions .Route 11/27/21 .COMPLEX #90 tabs triamcinolone acetonide 0.5 % 1 applic topical BID PRN 11/27/21 topical ointment dermatitis #80 grams insulin aspart U-100 100 unit/mL 50 unit (0.5 mL) subcut AC #70 mL 05/02/22 (3 mL) subcutaneous pen (Novolog Flexpen U-100 Insulin aspart) insulin glargine 100 unit/mL (3 70 unit (0.7 mL) subcut BID #90 mL 05/02/22 mL) subcutaneous pen (Basaglar KwikPen U-100 Insulin) torsemide 20 mg tablet 20 mg PO DAILY #90 tabs 05/16/22 hydrocodone 7.5 mg-acetaminophen 1 tab PO BID PRN back pain #56 tabs 06/06/22 325 mg tablet clopidogrel 75 mg tablet 75 mg PO DAILY #90 tabs 06/17/22 chlorthalidone 25 mg tablet 25 mg PO DAILY #90 tabs 06/19/22 pregabalin 150 mg capsule 150 mg PO TID #90 caps 06/25/22 Allergies Allergy/AdvReac Type Severity Reaction Status Date / Time cephalexin monohydrate Allergy Severe SOB Verified 06/29/22 08:37 [From Keflex] Penicillins Allergy Unknown Verified 06/29/22 08:37 General Stated Complaint: Abd Prob MIRIAM: 3 Review of Systems Constitutional Constitutional: Denies chills, Denies fever(s) and Reports poor appetite Cardiovascular Cardiovascular: Denies chest pain and Denies dyspnea Respiratory Respiratory: Denies cough and Denies dyspnea Gastrointestinal Gastrointestinal: Reports as per HPI, Reports abdominal pain, Denies melena, Denies change in bowel habits, Denies constipation, Denies diarrhea, Reports nausea and Reports vomiting Genitourinary Genitourinary: Denies hematuria, Denies difficulty urinating, Denies urinary hesitancy, Denies urinary incontinence and Denies urinary urgency Integumentary/Breasts Skin/Breast: Denies rash PFSH All Active Problems (Updated 06/29/22 @ 13:24 by Kane Rowland NP) Abdominal pain, epigastric (Acute) Chronic foot ulcer (Acute) Hyperkalemia (Acute 07/26/14) Cellulitis (Acute) Diabetic foot infection (Acute) Leg wound, left (Acute) Diabetic retinopathy (Acute ~12/2021) B/L MODERATE-01/17 Edema (Acute) Gout (Chronic) 08/2021-diagnosed by rheumatology at [facility]-probable gout tophi of hands Obesity (Chronic) Diabetes mellitus type 2, insulin dependent (Acute) with nephropathy Chronic kidney disease (CKD) (Chronic) 08/2021- Cr 1.7 Hand arthritis (Acute) Amputation of toe (Acute) Cellulitis of foot, right (Acute) Diabetes mellitus type 2, insulin dependent (Acute) Right heart failure (Acute) Diabetic peripheral neuropathy (Chronic) Diabetic peripheral angiopathy (Chronic) Hypertension (Chronic) Chronic pain syndrome (Chronic) low back pain, drug contract at [facility]-V PMS and drug screen on 08/1221-patient on chronic hydrocodone Coronary artery disease 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 [place] cardiac CATH: 3 vessel disease (LAD,LCx and RCA): coronary bypass sx pending Dyspnea on exertion (Chronic 12/16/13) negative nuclear stress test echocardiogram: normal/ EF 65%/no valvulopathy Cardiol.eval. : not ischemia related ([facility]) Peripheral autonomic neuropathy in disorders classified elsewhere (Chronic 09/15/14) Hyperlipidemia (Chronic) Medical History Congestive heart failure Diabetic foot ulcer DM (diabetes mellitus) 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 secondary to diabetic ulcer, angiopathy Laceration of lower leg with foreign body Lymphedema Obesity Proliferative diabetic retinopathy of both eyes without macular edema associated with diabetes mellitus due to underlying condition (01/18/18) 01/18/18-[facility] [place] 01/31/19-[facility] [place] Scrotal hematoma (07/26/14) A. S/p hydrocelectomy 07/24/14 Stroke (~2008) TIA (transient ischemic attack) Surgical History H/O surgical procedure A. Hydrocelectomy 07/24/2014 History of cataract removal with insertion of prosthetic lens History of hydrocelectomy (07/24/14) right S/P CABG x 3 (08/30/17[place] [facility] [place] no fup needed Family History Mother No problems noted. Father Diabetes Myocardial infarction Heart disease Sister Diabetes Social History Smoking/Tobacco Use Status: Former Tobacco Use Quit Date: 09/28/83 Tobacco: How many years used: 5 Smoking risk assessment performed?: Yes Alcohol Intake: current Alcohol Intake frequency: holidays/special occasions only Drug use: Occasionally Substance use type: marijuana Pets and animals: Yes Pets and animals: cat(s) and dog(s) What type of physical activity do you participate in: none Do you feel safe at home: Yes Do you feel safe in your relationship?: Yes Exam Const General: cooperative Orientation: alert, awake and oriented x3 Resp Effort & Inspection: normal respiratory effort and able to speak in complete sentences Auscultation: clear to auscultation bilaterally Cardio Rate: regular rate Rhythm: regular rhythm Heart Sounds: S1 normal and S2 normal GI Inspection: no abdominal wall ecchymosis and obesity Palpation: soft, not firm, no guarding, no masses, no pulsatile masses, not rigid and tender in the epigastrum and in the LLQ Auscultation: normal bowel sounds Back/Spine/Pelvis Back: no CVA tenderness Neuro General: patient alert, patient awake, patient oriented x3, gait normal and moves all extremities Course Vital Signs Vital signs: Vital Signs Temperature 36.5 C 06/29/22 08:30 Pulse 66 06/29/22 08:30 Respiratory Rate 18 06/29/22 08:30 Blood Pressure 119/65 06/29/22 08:30 Pulse Oximetry 96 06/29/22 08:30 Temperature 36.7 C 06/29/22 11:34 Temperature Source Skin 06/29/22 11:34 Pulse 64 06/29/22 11:34 Respiratory Rate 18 06/29/22 08:30 Respiratory Effort Non-Labored 06/29/22 08:35 Blood Pressure 135/69 06/29/22 11:34 Blood Pressure Position Sitting 06/29/22 08:30 Pulse Oximetry 94 06/29/22 11:34 Oxygen Delivery Method Room Air 06/29/22 11:34 Oxygen Flow Rate 0 06/29/22 11:34 Pain Level 7 06/29/22 11:34 Lab/Test Results Lab/Test Results: Laboratory Tests Range/Units 06/29/22 06/29/22 06/29/22 09:29 09:53 09:53 WBC (4.4-10.8) 10^3/uL 8.54 RBC (4.36-5.78) 10^6/uL 4.27 L Hgb (13.5-17.5) g/dL 12.6 L Hct (40.0-50.0) % 37.2 L MCV (80-95) fL 87 MCH (27.0-33.0) pg 29.5 MCHC (32.0-36.0) % 33.9 RDW (11.8-14.1) % 13.4 Plt Count (130-400) 10^3/uL 130 MPV (8.0-11.0) fL 11.1 H Immature Gran % 0.2 Neutrophils % 76.1 Lymphocytes % 11.4 Monocytes % 8.7 Eosinophils % 3.2 Basophils % 0.4 Nucleated RBC % (0.0-0.3) % 0.0 Absolute Neutrophils (1.2-6.7) 10^3/uL 6.51 Absolute Lymphocytes (1.2-3.4) 10^3/uL 0.97 L Absolute Monocytes (0.1-0.8) 10^3/uL 0.74 Absolute Eosinophils (0.0-0.7) 10^3/uL 0.27 Absolute Basophils (0.0-0.2) 10^3/uL 0.03 Sodium (136-145) mmol/L 134 L Potassium (3.5-5.1) mmol/L 3.6 Chloride (98-107) mmol/L 87 L Carbon Dioxide (21.0-32.0) mmol/L 38.6 H Anion Gap (3-11) mmol/L 8.4 BUN (7-18) mg/dL 63 H Creatinine (0.70-1.30) mg/dL 2.5 H Est GFR (CKD-EPI 2020) (mL/min/1.73m2) 27.64 Glucose (74-106) mg/dL 258 H Calcium (8.5-10.1) mg/dL 10.0 Magnesium (1.8-2.4) mg/dL 1.9 Total Bilirubin (0.2-1.0) mg/dL 0.7 AST (15-37) U/L 25 ALT (16-63) U/L 25 Alkaline Phosphatase (46-116) U/L 98 Troponin I Cancelled Total Protein (6.4-8.2) g/dL 8.2 Albumin (3.4-5.0) g/dL 4.3 Lipase (73-393) U/L 101 Urine Color (Yellow) Yellow Urine Clarity (Clear) Clear Urine pH (5-8) 7.5 Ur Specific [place] (1.005-1.025) 1.020 Urine Protein (Negative) mg/dL 30 H Urine Ketones (Negative) mg/dL Negative Urine Blood (Negative) Trace-intact H Urine Nitrite (Negative) Negative Urine Bilirubin (Negative) Negative Urine Urobilinogen (Up TO 0.2) EU/dL 0.2 Ur Leukocyte Esterase (Negative) Negative Urine RBC (0-2) HPF 3-5 H Urine WBC (0-5) HPF 0-2 Ur Epithelial Cells (Negative) HPF Moderate Urine Crystals (Negative) HPF Negative Urine Bacteria (Negative) HPF Rare Urine Casts (Negative) LPF Negative Urine Mucus (Negative) Trace Ur Culture Indicated? No Urine Glucose (Negative) mg/dL Negative Range/Units 06/29/22 10:50 WBC (4.4-10.8) 10^3/uL RBC (4.36-5.78) 10^6/uL Hgb (13.5-17.5) g/dL Hct (40.0-50.0) % MCV (80-95) fL MCH (27.0-33.0) pg MCHC (32.0-36.0) % RDW (11.8-14.1) % Plt Count (130-400) 10^3/uL MPV (8.0-11.0) fL Immature Gran % Neutrophils % Lymphocytes % Monocytes % Eosinophils % Basophils % Nucleated RBC % (0.0-0.3) % Absolute Neutrophils (1.2-6.7) 10^3/uL Absolute Lymphocytes (1.2-3.4) 10^3/uL Absolute Monocytes (0.1-0.8) 10^3/uL Absolute Eosinophils (0.0-0.7) 10^3/uL Absolute Basophils (0.0-0.2) 10^3/uL Sodium (136-145) mmol/L Potassium (3.5-5.1) mmol/L Chloride (98-107) mmol/L Carbon Dioxide (21.0-32.0) mmol/L Anion Gap (3-11) mmol/L BUN (7-18) mg/dL Creatinine (0.70-1.30) mg/dL Est GFR (CKD-EPI 2020) (mL/min/1.73m2) Glucose (74-106) mg/dL Calcium (8.5-10.1) mg/dL Magnesium (1.8-2.4) mg/dL Total Bilirubin (0.2-1.0) mg/dL AST (15-37) U/L ALT (16-63) U/L Alkaline Phosphatase (46-116) U/L Troponin I 50 Total Protein (6.4-8.2) g/dL Albumin (3.4-5.0) g/dL Lipase (73-393) U/L Urine Color (Yellow) Urine Clarity (Clear) Urine pH (5-8) Ur Specific [place] (1.005-1.025) Urine Protein (Negative) mg/dL Urine Ketones (Negative) mg/dL Urine Blood (Negative) Urine Nitrite (Negative) Urine Bilirubin (Negative) Urine Urobilinogen (Up TO 0.2) EU/dL Ur Leukocyte Esterase (Negative) Urine RBC (0-2) HPF Urine WBC (0-5) HPF Ur Epithelial Cells (Negative) HPF Urine Crystals (Negative) HPF Urine Bacteria (Negative) HPF Urine Casts (Negative) LPF Urine Mucus (Negative) Ur Culture Indicated? Urine Glucose (Negative) mg/dL
[2022-06-29] MEDS: Famotidine 20 MG TAB 40 MG PO (12:56)
[2022-06-29] MEDS: Normal Saline Flush 10 ML SYR IVP (12:57)
[2022-06-29] MEDS: HYDROmorphone 2 MG/ML SYR 1 MG IVP (12:57)
--- NOTE | 2022-06-29 13:29 | NUR.NOTE ---
Nursing Note: Referral faxed to [facility] Surgery for epigastric pain ? biliary leak in 1 week. Referral faxed to [facility] Urology for enlarged prostate seen on CT.
[2022-06-29 13:35] VITALS: BP 148/69; PULSE 68; TEMP 36.7; O2SAT 96
== END 2022-06-29 13:42 | disposition home or self-care (01) ==
PROVIDERS: Emergency Provider Nurse Practitioner Family; PCP Nurse Practitioner Family
DX: R10.13 Epigastric pain (principal); E11.22 Type 2 diabetes mellitus with diabetic chronic kidney disease; N18.9 Chronic kidney disease, unspecified; E66.9 Obesity, unspecified; R10.816 Epigastric abdominal tenderness; R10.813 Right lower quadrant abdominal tenderness; R10.814 Left lower quadrant abdominal tenderness; I50.9 Heart failure, unspecified; Z79.4 Long term (current) use of insulin; Z86.73 Personal history of transient ischemic attack (TIA), and cerebral infarction without residual deficits; Z95.1 Presence of aortocoronary bypass graft; Z87.891 Personal history of nicotine dependence
CPT/HCPCS: 80053; 83690; 93005; 96374; 96375; 99284; 74176; 81003; 81015; 83735; 84484; 85025; 93010; J1170

== ENCOUNTER 2022-08-27 11:39 | Outpatient (CLI) | payer MEDICARE, SELFPAY ==
--- NOTE | 2022-08-27 09:45 | DI.RAD_ITS ---
Exam(s) XR TOE LT GREAT EXAM: XR TOE LT GREAT CLINICAL HISTORY: Chronic L foot ulcer, L97.509. TECHNIQUE: 2D digital imaging was performed. COMPARISON: CR XR FOOT LT COMPLETE from 06/26/2022 FINDINGS: 3 views Again noted is trans metatarsal amputation at the 5th metatarsal. Vascular calcification noted. No evidence of fractures. No radiographic evidence of osteomyelitis. No erosions. IMPRESSION: No obvious radiographic evidence of osteomyelitis. If clinically indicated follow-up MRI can be perf ormed DATA REPOSITORY: RADIATION DOSE DELIVERED:
== END 2022-08-27 11:59 ==
PROVIDERS: PCP Nurse Practitioner Family; Visit Provider Podiatrist Foot & Ankle Surgery
DX: L97.528 Non-pressure chronic ulcer of other part of left foot with other specified severity
CPT/HCPCS: 73660

== ENCOUNTER 2022-11-07 13:16 | Outpatient (CLI) | payer MEDICARE, SELFPAY | END 2022-11-07 13:17 | disposition home or self-care (01) | LOC: DI.CARD 13:17 | PROVIDERS: PCP Nurse Practitioner Family; Visit Provider Internal Medicine Cardiovascular Disease | CPT/HCPCS: 93010 ==

== ENCOUNTER → 2022-11-07 13:25 | Outpatient (BNVA) | payer MEDICARE, SELFPAY | PROVIDERS: PCP Nurse Practitioner Family; Visit Provider Internal Medicine Cardiovascular Disease | DX: I50.9 Heart failure, unspecified (principal); I73.9 Peripheral vascular disease, unspecified; Z95.1 Presence of aortocoronary bypass graft; E66.01 Morbid (severe) obesity due to excess calories; N18.9 Chronic kidney disease, unspecified; Z79.01 Long term (current) use of anticoagulants | CPT/HCPCS: 99214 ==

== ENCOUNTER 2022-11-25 02:24 | Outpatient (CLI) | payer MEDICARE, SELFPAY ==
[2022-11-25 12:35] LABS: Abs Immature Grans 0.02 10^3/uL (0.0-0.06); Absolute Basophil Count 0.06 10^3/uL (0.0-0.2); Absolute Eosinophil Count 0.47 10^3/uL (0.0-0.7); Absolute Monocyte Count 0.62 10^3/uL (0.1-0.8); Absolute Neutrophil Count 5.52 10^3/uL (1.2-6.7); Basophils % 0.8; Eosinophils % 5.9; HCT 35.3 % (40.0-50.0); HGB 11.9 g/dL (13.5-17.5); Immature Grans % 0.3; Lymphocytes % 16.3; MCHC 33.7 % (32.0-36.0); MCV 89 fL (80-95); MPV 10.1 fL (8.0-11.0); Monocytes % 7.8; Neutrophils % 68.9; Platelet Count 144 10^3/uL (130-400); RBC 3.97 10^6/uL (4.36-5.78); RDW 13.8 % (11.8-14.1); RDW-SD 44.4 fL; WBC 7.99 10^3/uL (4.4-10.8)
[2022-11-25 13:42] LABS: ALT 24 U/L (16-63); AST 15 U/L (15-37); Albumin 3.5 g/dL (3.4-5.0); Alkaline Phosphatase 103 U/L (46-116); BUN 52 mg/dL (7-18); Bilirubin, Total 0.4 mg/dL (0.2-1.0); CREATININE 1.9 mg/dL (0.70-1.30); Calcium 9.4 mg/dL (8.5-10.1); Chloride 103 mmol/L (98-107); Estimated GFR 38.42 (mL/min/1.73m2); Glucose 192 mg/dL (74-106); Potassium 4.4 mmol/L (3.5-5.1); Sodium 140 mmol/L (136-145); Total Protein 7.2 g/dL (6.4-8.2)
== END 2022-11-25 02:25 | disposition home or self-care (01) ==
LOC: LBO 02:24
PROVIDERS: PCP Nurse Practitioner Family; Visit Provider Nurse Practitioner Family
DX: E11.9 Type 2 diabetes mellitus without complications (principal); Z79.4 Long term (current) use of insulin; R68.83 Chills (without fever)
CPT/HCPCS: 36415; 80053; 83036; 85025

== ENCOUNTER 2023-02-18 13:33 | Inpatient (IN) | payer MEDICARE, SELFPAY ==
[2023-02-18] VITALS (72 sets, daily range): BP systolic 117–178; BP diastolic 25–123; PULSE 70–175; RESP 16–26; TEMP 37.1–38.5; O2SAT 82–99
--- NOTE | 2023-02-18 13:45 | RT.EKG_ITS ---
APPROVED REPORT Exam: Resting ECG Reason for Exam: dizzy Patient Location: E HR:89 bpm ECG Measurements Heart Rate 89 AXIS OR 170 P 234 QRSd 162 QRS 92 QT 437 T 3 QTc 516 Conclusion Ectopic atrial rhythm...abnormal P axis, normal rate Multiform ventricular premature complexes...short R-R, variable morphology RBBB and LPFB...QRSd >120mS, axis(90,210) Probable inferior infarct, age indeterminate...Q>35mS, T neg, II III aVF artifact due to shaking
--- NOTE | 2023-02-18 14:00 | DI.CT_ITS ---
Exam(s) CT HEAD WO EXAM: CT HEAD WO CLINICAL HISTORY: Lack of balance. TECHNIQUE: Imaging Protocol: Axial computed tomography images with coronal and sagittal reformatted images were created and reviewed COMPARISON: No exams were available for comparison FINDINGS: There are no skull fractures. Mucosal thickening noted in both maxillary sinuses. No associated flui d levels. Sphenoid and frontal sinuses are clear as are the ethmoidal air cells. There is no evidence of intracranial hemorrhage, mass effect, or shift of midline structures. There are no extra-axial fluid collections. The ventricles are not enlarged or shifted and there is no blo od within the ventricular system nor within the basal cisterns. IMPRESSION: No acute intracranial findings on this noninfused CT scan of the brain. RADIATION DOSE DELIVERED: 1,059.91mGy.cm Total DLP DATA REPOSITORY: All CT scans at this facility are submitted to the National Radiology Data Registry (NRDR) Dose Index Registry (DIR) with the [employer] (ACR). RADIATION OPTIMIZATION: All CT scans at this facility use at least one of these dose optimization te chniques: automated exposure control; mA and/or kV adjustment per patient size (includes targeted exa ms where dose is matched to clinical indication); or iterative reconstruction.
--- NOTE | 2023-02-18 14:00 | DI.RAD_ITS ---
Exam(s) XR CHEST 2V PA LATERAL EXAM: XR CHEST 2V PA LATERAL CLINICAL HISTORY: Fever, chills. TECHNIQUE: 2D digital imaging was performed. COMPARISON: CR XR CHEST 2V PA LATERAL from 11/29/2021 FINDINGS: 2 views: Three wires again noted Heart size is upper normal. The mediastinum is not widened. Lungs are clear. No infiltrates nor pleural effusions. IMPRESSION: No acute pulmonary findings.Sternotomy wires again noted. DATA REPOSITORY: RADIATION DOSE DELIVERED:
--- NOTE | 2023-02-18 14:09 | ED.GENADUL_ITS ---
Discharge Plan Discharge Details Chief Complaint: GenMedical Primary Care Provider: Jarrod Schultz ED Provider: Radha Herbert Home Meds and New Rx's Prescriptions: No Action rosuvastatin 40 mg tablet See Rx Instructions .ROUTE .COMPLEX Qty: 90 3RF Dose Instruction: TAKE ONE TABLET BY MOUTH EVERY DAY AT BEDTIME Rx Instructions: TAKE ONE TABLET BY MOUTH EVERY DAY AT BEDTIME triamcinolone acetonide 0.5 % ointment 1 applic Topical BID PRN (Reason: dermatitis) Qty: 80 1RF carvedilol 25 mg tablet 25 mg PO BID Qty: 180 3RF nitroglycerin 0.4 mg tablet, sublingual 0.4 mg SL Q5-15M PRN (Reason: chest pain) Qty: 25 0RF aspirin [Adult Aspirin Regimen] 81 mg tablet,delayed release (DR/EC) 81 mg PO DAILY (DME) BD Insulin Syringe 1 EACH syringe 1 ea Sub-Q QID Qty: 3 Rx Instructions: B/D INSULIN ULTRA-FINE 30GX0.3/ (DME) Aerochamber Plus Flow-Vu 1 EACH spacer 1 ea Miscellaneous PRN Qty: 1 0RF (DME) blood-glucose meter [FreeStyle Lite Meter] 1 EACH kit 1 ea Miscellaneous TID Qty: 1 0RF (DME) FreeStyle Lite Strips Strip 1 ea Miscellaneous QID Qty: 400 6RF Rx Instructions: 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 E11.42 (DME) FreeStyle Alfredo 2 [place] Misc See Rx Instructions .ROUTE .MEDSUPPLY Qty: 1 0RF Rx Instructions: As directed (DME) FreeStyle Alfredo 2 Sensor Kit See Rx Instructions .ROUTE .MEDSUPPLY Qty: 2 6RF Rx Instructions: As directed (DME) BD Regular Bevel [place] 21 gauge x 1 1/2 needle 1 ea Miscellaneous QID Qty: 100 6RF Rx Instructions: BD U100 29g 1/2 with safety lock insulin syringes Dx E11.49 insulin aspart U-100 [Novolog FlexPen U-100 Insulin] 100 unit/mL (3 mL) insulin pen 50 unit Sub-Q AC Qty: 70 4RF insulin glargine [Basaglar KwikPen U-100 Insulin] 100 unit/mL (3 mL) insulin pen 70 unit subcut BID Qty: 90 3RF chlorthalidone 25 mg tablet 25 mg PO DAILY Qty: 90 3RF (DME) pen needle, diabetic [BD Ultra-Fine Short Pen Needle] 31 gauge x 5/16 needle See Rx Instructions .ROUTE .MEDSUPPLY Qty: 100 4RF Rx Instructions: check blood sugar qid clopidogrel 75 mg tablet 75 mg PO DAILY Qty: 90 3RF pregabalin 150 mg capsule 150 mg PO TID Qty: 90 5RF hydrocodone-acetaminophen 7.5-325 mg tablet 1 tab PO BID MDD 2 tabs PRN (Reason: back pain) Qty: 56 0RF multivitamin Tablet 1 tab PO DAILY acetaminophen 500 mg Tablet 1,000 mg PO Q6H PRN Medical Decision Making 68-year-old male with a past medical history of SIRS, CHF, CVA, TIA cellulitis, diabetic foot infection, obesity type 2 diabetes chronic kidney disease hypertension and coronary artery disease presents to the ER with chief complaint of uncontrollable shaking which began this morning and loss of balance feeling weak. He did notice a tick on his back on Thursday and a bull's-eye rash today. Upon arrival he is awake alert and oriented and is rigorous uncontrollably. Work-up ordered including CBC CMP troponin, EKG, lactate blood cultures x2, urinalysis head CT and chest x-ray. Differential diagnosis includes but not limited to CVA, cellulitis, pneumonia, Lyme CBC shows no leukocytosis white blood cell count 10.59, platelets slightly low at 114, neutrophils 9.60, PT/INR within normal limits, lactate elevated at 2.3, BUN 58 creatinine 2.0 GFR is 35.9 glucose 217 magnesium slightly low at 1.7 initial troponin elevated at 67 BUN and creatinine are largely at baseline. 1506: O2 sat on room air runs from 85 to 92% with a good Pleth. Placed on 2 L O2 nasal cannula O2 sat 97%. 1 L of normal saline ordered due to lactate of 2.3, doxycycline 100 mg IV due to recent tick bite. 1509: At this time imaging is pending and urinalysis. Care is to be handed off to oncoming provider HERBIE Balderrama pending CT head and chest x-ray and probable admission. Medical Records Medical records reviewed: Yes I reviewed the patient's medical records. Lab Data Lab results reviewed: Yes I reviewed the patient's lab results. Labs: 02/18/23 15:05 Blood Blood Culture - Pending 02/18/23 15:00 Blood Blood Culture - Pending Laboratory Tests Range/Units 02/18/23 02/18/23 02/18/23 14:12 14:12 14:12 WBC (4.4-10.8) 10^3/uL 10.59 RBC (4.36-5.78) 10^6/uL 4.68 Hgb (13.5-17.5) g/dL 13.8 Hct (40.0-50.0) % 40.6 MCV (80-95) fL 87 MCH (27.0-33.0) pg 29.5 MCHC (32.0-36.0) % 34.0 RDW (11.8-14.1) % 13.5 Plt Count (130-400) 10^3/uL 114 L MPV (8.0-11.0) fL 10.7 Immature Gran % 0.3 Neutrophils % 90.6 Lymphocytes % 1.9 Monocytes % 5.8 Eosinophils % 1.2 Basophils % 0.2 Nucleated RBC % (0.0-0.3) % 0.0 Absolute Neutrophils (1.2-6.7) 10^3/uL 9.60 H Absolute Lymphocytes (1.2-3.4) 10^3/uL 0.20 L Absolute Monocytes (0.1-0.8) 10^3/uL 0.61 Absolute Eosinophils (0.0-0.7) 10^3/uL 0.13 Absolute Basophils (0.0-0.2) 10^3/uL 0.02 PT (9.3-11.0) sec INR (0.9-1.1) APTT (21.5-31.9) sec VBG Lactate (0.6-1.4) mmol/L 2.3 H* Sodium (136-145) mmol/L 137 Potassium (3.5-5.1) mmol/L 3.9 Chloride (98-107) mmol/L 97 L Carbon Dioxide (21.0-32.0) mmol/L 31.7 Anion Gap (3-11) mmol/L 8.3 BUN (7-18) mg/dL 58 H Creatinine (0.70-1.30) mg/dL 2.0 H Est GFR (CKD-EPI 2020) (mL/min/1.73m2) 35.91 Glucose (74-106) mg/dL 217 H Calcium (8.5-10.1) mg/dL 9.6 Magnesium (1.8-2.4) mg/dL 1.7 L Total Bilirubin (0.2-1.0) mg/dL 1.0 AST (15-37) U/L 23 ALT (16-63) U/L 28 Alkaline Phosphatase (46-116) U/L 102 Troponin I (<or=60) ng/L 67 H* Total Protein (6.4-8.2) g/dL 8.3 H Albumin (3.4-5.0) g/dL 4.0 Range/Units 02/18/23 14:12 WBC (4.4-10.8) 10^3/uL RBC (4.36-5.78) 10^6/uL Hgb (13.5-17.5) g/dL Hct (40.0-50.0) % MCV (80-95) fL MCH (27.0-33.0) pg MCHC (32.0-36.0) % RDW (11.8-14.1) % Plt Count (130-400) 10^3/uL MPV (8.0-11.0) fL Immature Gran % Neutrophils % Lymphocytes % Monocytes % Eosinophils % Basophils % Nucleated RBC % (0.0-0.3) % Absolute Neutrophils (1.2-6.7) 10^3/uL Absolute Lymphocytes (1.2-3.4) 10^3/uL Absolute Monocytes (0.1-0.8) 10^3/uL Absolute Eosinophils (0.0-0.7) 10^3/uL Absolute Basophils (0.0-0.2) 10^3/uL PT (9.3-11.0) sec 9.8 INR (0.9-1.1) 1.0 APTT (21.5-31.9) sec 23.3 VBG Lactate (0.6-1.4) mmol/L Sodium (136-145) mmol/L Potassium (3.5-5.1) mmol/L Chloride (98-107) mmol/L Carbon Dioxide (21.0-32.0) mmol/L Anion Gap (3-11) mmol/L BUN (7-18) mg/dL Creatinine (0.70-1.30) mg/dL Est GFR (CKD-EPI 2020) (mL/min/1.73m2) Glucose (74-106) mg/dL Calcium (8.5-10.1) mg/dL Magnesium (1.8-2.4) mg/dL Total Bilirubin (0.2-1.0) mg/dL AST (15-37) U/L ALT (16-63) U/L Alkaline Phosphatase (46-116) U/L Troponin I (<or=60) ng/L Total Protein (6.4-8.2) g/dL Albumin (3.4-5.0) g/dL HPI General Mode of arrival: ambulatory . Date/Time Provider Initiated Documentation: 02/18/23 13:53 . Limitations to Documentation: no limitations . Information obtained by: patient, family, RN notes reviewed and old records reviewed . HPI Narrative: 68-year-old male with a past medical history of SIRS, CHF, CVA, TIA cellulitis, diabetic foot infection, obesity type 2 diabetes chronic kidney disease hypertension and coronary artery disease presents to the ER with chief complaint of uncontrollable shaking which began this morning and loss of balance feeling weak. He did notice a tick on his back on Thursday and a bull's-eye rash today. Upon arrival he is awake alert and oriented and is rigorous uncontrollably. Related Data Home Medications Medication Instructions Recorded Confirmed insulin syringe-needle U-100 1 mL ##3 10/14/16 02/17/23 26 x 1/2 (BD Insulin Syringe) inhalational spacing device #1 unit 03/15/18 02/17/23 (Aerochamber Plus Flow-Vu) blood-glucose meter (FreeStyle ##1 05/21/18 02/17/23 Lite Meter kit) blood sugar diagnostic (FreeStyle #400 strips 09/15/19 02/17/23 Lite Strips) acetaminophen 500 mg tablet 1,000 mg PO Q6H PRN 06/14/20 02/17/23 multivitamin 1 tab PO DAILY 06/14/20 02/17/23 flash glucose scanning reader #1 ea 04/09/21 02/17/23 (FreeStyle Alfredo 2 [place]) flash glucose sensor (FreeStyle #2 ea 04/09/21 02/17/23 Alfredo 2 Sensor kit) needle (disp) 21 G 21 gauge x 1 #100 ea 04/12/21 02/17/2309/29 (BD Regular [place]vel [place]) aspirin 81 mg tablet,delayed 81 mg PO DAILY 08/12/21 02/17/23 release (Adult Aspirin Regimen) rosuvastatin 40 mg tablet See Rx Instructions .Route 11/27/21 02/17/23 .COMPLEX #90 tabs triamcinolone acetonide 0.5 % 1 applic topical BID PRN 11/27/21 02/17/23 topical ointment dermatitis #80 grams insulin aspart U-100 100 unit/mL 50 unit (0.5 mL) subcut AC #70 mL 05/02/22 02/17/23 (3 mL) subcutaneous pen (Novolog FlexPen U-100 Insulin aspart) insulin glargine 100 unit/mL (3 70 unit (0.7 mL) subcut BID #90 mL 08/06/22 02/17/23 mL) subcutaneous pen (Basaglar KwikPen U-100 Insulin) chlorthalidone 25 mg tablet 25 mg PO DAILY #90 tabs 10/01/22 02/17/23 pen needle, diabetic 31 gauge x #100 ea 10/16/22 02/17/2302/10 (BD Ultra-Fine Short Pen Needle) carvedilol 25 mg tablet 25 mg PO BID #180 tabs 11/07/22 02/17/23 clopidogrel 75 mg tablet 75 mg PO DAILY #90 tabs 12/22/22 02/17/23 pregabalin 150 mg capsule 150 mg PO TID #90 caps 01/09/23 02/17/23 hydrocodone 7.5 mg-acetaminophen 1 tab PO BID PRN back pain #56 tabs 01/26/23 02/17/23 325 mg tablet nitroglycerin 0.4 mg sublingual 0.4 mg sublingual Q5-15M PRN chest 02/17/23 02/17/23 tablet pain #25 tabs Previous Rx's Medication Instructions Recorded inhalational spacing device #1 unit 03/15/18 (Aerochamber Plus Flow-Vu) blood-glucose meter (FreeStyle ##1 05/21/18 Lite Meter kit) blood sugar diagnostic (FreeStyle #400 strips 09/15/19 Lite Strips) flash glucose scanning reader #1 ea 04/09/21 (FreeStyle Alfredo 2 [place]) flash glucose sensor (FreeStyle #2 ea 04/09/21 Alfredo 2 Sensor kit) needle (disp) 21 G 21 gauge x 1 #100 ea 04/12/2109/29 (BD Regular [place]vel [place]) rosuvastatin 40 mg tablet See Rx Instructions .Route 11/27/21 .COMPLEX #90 tabs triamcinolone acetonide 0.5 % 1 applic topical BID PRN 11/27/21 topical ointment dermatitis #80 grams insulin aspart U-100 100 unit/mL 50 unit (0.5 mL) subcut AC #70 mL 05/02/22 (3 mL) subcutaneous pen (Novolog FlexPen U-100 Insulin aspart) insulin glargine 100 unit/mL (3 70 unit (0.7 mL) subcut BID #90 mL 08/06/22 mL) subcutaneous pen (Basaglar KwikPen U-100 Insulin) chlorthalidone 25 mg tablet 25 mg PO DAILY #90 tabs 10/01/22 pen needle, diabetic 31 gauge x #100 ea 10/16/2202/10 (BD Ultra-Fine Short Pen Needle) carvedilol 25 mg tablet 25 mg PO BID #180 tabs 11/07/22 clopidogrel 75 mg tablet 75 mg PO DAILY #90 tabs 12/22/22 pregabalin 150 mg capsule 150 mg PO TID #90 caps 01/09/23 hydrocodone 7.5 mg-acetaminophen 1 tab PO BID PRN back pain #56 tabs 01/26/23 325 mg tablet nitroglycerin 0.4 mg sublingual 0.4 mg sublingual Q5-15M PRN chest 02/17/23 tablet pain #25 tabs Allergies Allergy/AdvReac Type Severity Reaction Status Date / Time cephalexin monohydrate Allergy Severe SOB Verified 02/17/23 09:09 [From Keflex] Penicillins Allergy Unknown Verified 02/17/23 09:09 General Stated Complaint: GenMedical MIRIAM: 3 Review of Systems All systems reviewed & are unremarkable except as noted in HPI and below Constitutional Constitutional: Reports as per HPI, Reports body ache(s), Reports chills, Denies headache(s), Reports lethargy, Reports weakness and Reports other (Lack of balance) ENT Ears, Nose, Mouth, and Throat: Denies headache(s) Neurologic Neurologic: Denies headache(s) and Reports weakness PFSH All Active Problems Peripheral arterial disease (Acute) Nail dystrophy (Acute) Chronic foot ulcer (Acute) Hyperkalemia (Acute 07/26/14) Cellulitis (Acute) Diabetic foot infection (Acute) Leg wound, left (Acute) Diabetic retinopathy (Acute ~12/2021) B/L MODERATE-01/17 Edema (Acute) Gout (Chronic) 08/2021-diagnosed by rheumatology at [facility]-probable gout tophi of hands Obesity (Chronic) Diabetes mellitus type 2, insulin dependent (Acute) with nephropathy Chronic kidney disease (CKD) (Chronic) 08/2021- Cr 1.7 Hand arthritis (Acute) Amputation of toe (Acute) Cellulitis of foot, right (Acute) Diabetes mellitus type 2, insulin dependent (Acute) Right heart failure (Acute) Diabetic peripheral neuropathy (Chronic) Diabetic peripheral angiopathy (Chronic) Hypertension (Chronic) Chronic pain syndrome (Chronic) low back pain, drug contract at [facility]-V PMS and drug screen on 08/1221-patient on chronic hydrocodone Coronary artery disease involving elem coronary artery of elem heart with unstable angina pectoris (Chronic 08/30/17) [place]24-[place] [facility] [place]: 3 vessel disease (LAD,LCx and RCA): coronary bypass sx pending Dyspnea on exertion (Chronic 12/16/13) negative nuclear stress test echocardiogram: normal/ EF 65%/no valvulopathy Cardiol.eval. : not ischemia related ([facility]) Peripheral autonomic neuropathy in disorders classified elsewhere (Chronic 09/15/14) Hyperlipidemia (Chronic) Medical History Congestive heart failure Diabetic foot ulcer DM (diabetes mellitus) 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 secondary to diabetic ulcer, angiopathy Laceration of lower leg with foreign body Lymphedema Obesity Proliferative diabetic retinopathy of both eyes without macular edema associated with diabetes mellitus due to underlying condition (01/18/18) [place]18[place] [place] [place] Scrotal hematoma (07/26/14) A. S/p hydrocelectomy 07/24/14 Stroke (~2009) TIA (transient ischemic attack) Surgical History H/O surgical procedure A. 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 Father Diabetes Myocardial infarction Heart disease Sister Diabetes Social History Smoking/Tobacco Use Status: Former Tobacco Use Quit Date: 09/28/83 Tobacco: How many years used: 5 Smoking risk assessment performed?: Yes Alcohol Intake: current Alcohol Intake frequency: holidays/special occasions only Drug use: Occasionally Substance use type: marijuana Pets and animals: Yes Pets and animals: cat(s) and dog(s) What type of physical activity do you participate in: none Do you feel safe at home: Yes Do you feel safe in your relationship?: Yes Exam Narrative Exam Narrative: Constitutional: Alert and oriented x3. Appears stated age. Obese l body habit us. Patient is shaking uncontrollably. Head: Normocephalic, no trauma. Eyes: Pupils PERRL, Red reflex noted, EOM's intact. Eyelids symmetrical without lesions, discharge, or swelling. ENT: Bilateral TM's WNL, External ear normal to inspection, no mastoid TTP, swelling, or erythema, Nasal turbinates WNL, no nasal discharge. Normal dentition, Posterior pharynx WNL, no exudate. Chest: Slightly tachycardic with a rate of 107 normal S1, S2, distal pulses intact. Resp: Lungs clear to auscultation bilaterally, no wheezes, rales, or rhonchi. Abdomen: Soft, non-distended, Normoactive bowel sounds all 4 quads. Musculoskeletal: Normal gait, 5/5 strength to all four extremities. Skin: Capillary refill less than 2 sec. appears to have bilateral peripheral vascular disease, and is slightly red on the left side, he does have a small pinpoint ulcer noted to his left great toe. Does have multiple amputated toes to his right lower extremity. Bull's-eye rash noted to his back. Neurologic: Cranial nerves II-XII intact. Alert and oriented x 3. Motor: No deficits noted. Sensory: Intact bilaterally all 4 extremities. Reflexes: DTR's intact bilaterally.. Hematologic/Lymphatic: No ecchymosis, no lymphadenopathy. Course Vital Signs Vital signs: Vital Signs Temperature 37.5 C 02/18/23 13:45 Pulse 82 02/18/23 13:45 Respiratory Rate 20 02/18/23 13:45 Blood Pressure 157/105 H 02/18/23 13:45 Pulse Oximetry 94 02/18/23 13:45 Temperature 37.5 C 02/18/23 13:45 Temperature Source Oral 02/18/23 13:45 Pulse 82 02/18/23 13:45 Respiratory Rate 20 02/18/23 13:45 Blood Pressure 157/105 H 02/18/23 13:45 Pulse Oximetry 94 02/18/23 13:45 Oxygen Delivery Method Room Air 02/18/23 13:45 Oxygen Flow Rate 0 02/18/23 13:45 Pain Level 8 02/18/23 13:45 Comment ibuprofen on thursday but nothing today 02/18/23 13:45 Sign Out Sign Out Data: Sign Out Comment: Here with Rigors, loss of balance and recent Tick bite with bulls eye rash. Hx of DM, CAD, CVA, etc...Mildly hypoxic, on 2L nc here. Pending UA, CT head and CXR. Most likely will need admission. Last updated by Radha Herbert NP at 02/18/23 15:42
[2023-02-18] MEDS: Ondansetron 4 MG/2 ML VIAL IVP (14:23)
[2023-02-18] MEDS: Ondansetron 4 MG/2 ML VIAL (14:23)
[2023-02-18 14:25] LABS: Abs Immature Grans 0.03 10^3/uL (0.0-0.06); Absolute Basophil Count 0.02 10^3/uL (0.0-0.2); Absolute Eosinophil Count 0.13 10^3/uL (0.0-0.7); Absolute Monocyte Count 0.61 10^3/uL (0.1-0.8); Basophils % 0.2; Eosinophils % 1.2; HCT 40.6 % (40.0-50.0); HGB 13.8 g/dL (13.5-17.5); Immature Grans % 0.3; Lactate 2.3 mmol/L (0.6-1.4); Lymphocytes % 1.9; MCH 29.5 pg (27.0-33.0); MCV 87 fL (80-95); MPV 10.7 fL (8.0-11.0); Monocytes % 5.8; Neutrophils % 90.6; Platelet Count 114 10^3/uL (130-400); RBC 4.68 10^6/uL (4.36-5.78); RDW 13.5 % (11.8-14.1); RDW-SD 41.8 fL; WBC 10.59 10^3/uL (4.4-10.8)
[2023-02-18] MEDS: Normal Saline 500 ML 1000 ML IV (14:30)
[2023-02-18 14:40] LABS: PTT Activated 23.3 sec (21.5-31.9); Prothrombin Time 9.8 sec (9.3-11.0)
[2023-02-18 14:54] LABS: ALT 28 U/L (16-63); AST 23 U/L (15-37); Alkaline Phosphatase 102 U/L (46-116); Anion Gap 8.3 mmol/L (3-11); BUN 58 mg/dL (7-18); CO2 31.7 mmol/L (21.0-32.0); Calcium 9.6 mg/dL (8.5-10.1); Chloride 97 mmol/L (98-107); Estimated GFR 35.91 (mL/min/1.73m2); Glucose 217 mg/dL (74-106); Magnesium 1.7 mg/dL (1.8-2.4); Potassium 3.9 mmol/L (3.5-5.1); Sodium 137 mmol/L (136-145); Total Protein 8.3 g/dL (6.4-8.2); Troponin I 67 ng/L (<or=60)
[2023-02-18] MEDS: DOXYCYCLINE 100 MG in Normal Saline 100 ML IVPB (15:16)
--- NOTE | 2023-02-18 15:21 | NUR.NOTE ---
Nursing Note: Pt and pt's SO updated with care. Pt has call light within reach and warm blankets for comfort.
--- NOTE | 2023-02-18 15:32 | NUR.NOTE ---
Nursing Note: Pt reminded of need for urine sample and small sips of water provided. Pt understands next steps of care.
[2023-02-18] MEDS: Acetaminophen 500 MG TAB 1000 MG PO (16:02)
[2023-02-18 16:34] LABS: Troponin I 98 ng/L (<or=60)
[2023-02-18 16:40] LABS: Bilirubin Negative (Negative); Blood Trace-lysed (Negative); Clarity Clear (Clear); Glucose Negative (Negative); Ketones Negative (Negative); Leukocyte Esterase Negative (Negative); Nitrite Negative (Negative); Urobilinogen 0.2 mg/dL (Up to 0.2)
--- NOTE | 2023-02-18 16:45 | RT.EKG_ITS ---
APPROVED REPORT Exam: Resting ECG Reason for Exam: weakness Patient Location: E HR:74 bpm ECG Measurements Heart Rate 74 AXIS ME 225 P 74 QRSd 165 QRS 91 QT 420 T 11 QTc 465 Conclusion Sinus rhythm...normal P axis, V-rate 60- 99 Prolonged ME interval...ME >220, V-rate 50- 90 RBBB and LPFB...QRSd >120mS, axis(90,210) Normal sinus rhythm at a rate of 74 with first-degree AV block new compared to prior and right bundle branch block with left posterior fascicular block. ST segment elevation in lead III and II new comp ared to prior dated earlier today along with worsened ST segment depressions in aVL.
[2023-02-18 16:50] LABS: Bacteria Negative HPF (Negative); C & S Indicated? No; Casts 0-2 Hyaline LPF (Negative); Crystals Negative HPF (Negative); Epithelial Cells Rare HPF (Negative); Mucus Negative (Negative); RBC 0-2 HPF (0-2); WBC Negative HPF (0-5)
[2023-02-18] MEDS: cefTRIAXone 2 GM/50 ML BAG IVPB (17:44)
[2023-02-18 19:35] LABS: Troponin I 188 ng/L (<or=60)
--- NOTE | 2023-02-18 20:14 | HPE_ITS ---
Date of service: 02/18/23 Time of Service: 20:15 Assessment and Plan Assessment and plan (1) Acute Lyme disease: Status: Acute Assessment and plan: Classic targetoid / bullseye rash of mid-lower back. Tick removed the Thursday prior to admission. Cont Rocephin. Tick panel pending. Supportive care. (2) Elevated troponin: Status: Acute Assessment and plan: Troponin: 67 > 98 > 188 > pending. No chest pain. Secondary to demand ischemia from current illness. [place] [facility] [place] and reviewed EKGs. Monitor. (3) Coronary artery disease involving pilot point coronary artery of pilot point heart with unstable angina pectoris: Status: Chronic Assessment and plan: Cont ASA, carvedilol, plavix, rosuvastatin. Telemetry. (4) Congestive heart failure: Assessment and plan: History of. No evidence of volume overload currently Stable on RA. NTProBNP pending. (5) Diabetes mellitus type 2, insulin dependent: Status: Acute Assessment and plan: Cont his home basal/bolus insulin; adjust as necessary. SS correction dosing insulin. Diabetic diet. A1c 7.0 in 10/2022. (6) Chronic kidney disease (CKD): Status: Chronic Assessment and plan: Creatinine 2.0 Stable in his baseline range. (7) Peripheral arterial disease: Status: Acute Assessment and plan: See CAD above. (8) Gout: Status: Chronic Assessment and plan: + tophi of hands. Tales prn hydrocodone for this and his chronic pain syndrome. Cont. (9) Hypertension: Status: Chronic Assessment and plan: Cont carvedilol and hygroton. Qualifiers: Hypertension type: essential hypertension Qualified Code(s): I10 - Essential (primary) hypertension (10) Chronic pain syndrome: Status: Chronic Assessment and plan: As above. (11) Hyperlipidemia: Status: Chronic Assessment and plan: Cont Rosuvastatin. Qualifiers: Hyperlipidemia type: unspecified Qualified Code(s): E78.5 - Hyperlipidemia, unspecified (12) Discharge planning issues: Status: Acute Assessment and plan: Full Code. DVT prophylaxis with lovenox. History of Present Illness History of Present Illness Chief Complaint: Chills and weakness Narrative: This is a 68 yo male with a PMH of DM2 insulin requiring, PAD, gout of multiple joints, morbid obesity, CKD, CHF, HTN, CAD/previous by-pass grafting, HLD, peripheral neuropathy. He presented to the ED with c/o shaking/chills and feeling weak. He states he has felt like this before with cellulitis. A tick was found on his back on and a targetoid rash developed on day of admission. No WORKMAN. + bodyaches different than his usual related to gout. No CP/palpitations. Vital Signs Temperature ?37.5 C ?02/18/23 13:45 Pulse ?82 ?02/18/23 13:45 Respiratory Rate ?20 ?02/18/23 13:45 Blood Pressure ?157/105 H ?02/18/23 13:45 Pulse Oximetry ?94 ?02/18/23 13:45 WBC count 10.59. vbg lactate 2.3. Na 137. K 3.9. Creatinine 2.0. BUN 58. Glucose 217. Mg 1.7. AST and ALT normal. Troponin 67 > 98 > 188. CXR: no acute findings. CT head: no acute findings. Initially given a dose of IV doxycycline and the changed to rocephin 2gm IV [id number], in the ED. [place] [facility] [place] doc. They did not recommend emergent transfer. If a significant block developed then speak with them again. Currently with 1st degree AV block Review of Systems All systems reviewed & are unremarkable except as noted in HPI and below PFSH All Active Problems (Updated 02/18/23 @ 20:58 by Jamie Corona MD) Discharge planning issues (Acute) Elevated troponin (Acute) Acute Lyme disease (Acute) Peripheral arterial disease (Acute) Nail dystrophy (Acute) Chronic foot ulcer (Acute) Hyperkalemia (Acute 07/26/14) Cellulitis (Acute) Diabetic foot infection (Acute) Leg wound, left (Acute) Diabetic retinopathy (Acute ~12/2021) B/L MODERATE-01/17 Edema (Acute) Gout (Chronic) 08/2021-diagnosed by rheumatology at [facility]-probable gout tophi of hands Obesity (Chronic) Diabetes mellitus type 2, insulin dependent (Acute) with nephropathy Chronic kidney disease (CKD) (Chronic) 08/2021- Cr 1.7 Hand arthritis (Acute) Amputation of toe (Acute) Cellulitis of foot, right (Acute) Diabetes mellitus type 2, insulin dependent (Acute) Right heart failure (Acute) Diabetic peripheral neuropathy (Chronic) Diabetic peripheral angiopathy (Chronic) Hypertension (Chronic) Chronic pain syndrome (Chronic) low back pain, drug contract at [facility]-V PMS and drug screen on 08/1221-patient on chronic hydrocodone Coronary artery disease involving pilot point coronary artery of pilot point heart with u nstable angina pectoris (Chronic 08/30/17) 08-24-[place] [facility] [place] 3 vessel disease (LAD,LCx and RCA): coronary bypass sx pending Dyspnea on exertion (Chronic 12/16/13) negative nuclear stress test echocardiogram: normal/ EF 65%/no valvulopathy Cardiol.eval. : not ischemia related ([facility]) Peripheral autonomic neuropathy in disorders classified elsewhere (Chronic 09/15/14) Hyperlipidemia (Chronic) Medical History Congestive heart failure Diabetic foot ulcer DM (diabetes mellitus) 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 secondary to diabetic ulcer, angiopathy Laceration of lower leg with foreign body Lymphedema Obesity Proliferative diabetic retinopathy of both eyes without macular edema associated with diabetes mellitus due to underlying condition (01/18/18) [place] [place] [place] Scrotal hematoma (07/26/14) A. S/p hydrocelectomy 07/24/14 Stroke (~2008) TIA (transient ischemic attack) Surgical History H/O surgical procedure A. Hydrocelectomy 07/24/2014 History of cataract removal with insertion of prosthetic lens History of hydrocelectomy (07/24/14) right S/P CABG [place] 3 [place] [facility] [place] Family History Mother No problems noted. Father Diabetes Myocardial infarction Heart disease Sister Diabetes Social History Smoking/Tobacco Use Status: Former Tobacco Use Quit Date: 09/28/83 Tobacco: How many years used: 5 Smoking risk assessment performed?: Yes Alcohol Intake: current Alcohol Intake frequency: holidays/special occasions only Drug use: Occasionally Substance use type: marijuana Pets and animals: Yes Pets and animals: cat(s) and dog(s) What type of physical activity do you participate in: none Do you feel safe at home: Yes Do you feel safe in your relationship?: Yes Meds Allergies and Home Medications Allergies Allergy/AdvReac Type Severity Reaction Status Date / Time cephalexin monohydrate Allergy Severe SOB Verified 02/17/23 09:09 [From Keflex] Penicillins Allergy Unknown Verified 02/17/23 09:09 Home Medications Medication Instructions Recorded Confirmed Type insulin syringe-needle U-100 1 mL ##3 10/14/16 02/17/23 History 26 x 1/2 (BD Insulin Syringe) inhalational spacing device #1 unit 03/15/18 02/17/23 Rx (Aerochamber Plus Flow-Vu) blood-glucose meter (FreeStyle ##1 05/21/18 02/17/23 Rx Lite Meter kit) blood sugar diagnostic (FreeStyle #400 strips 09/15/19 02/17/23 Rx Lite Strips) acetaminophen 500 mg tablet 1,000 mg PO Q6H PRN 06/14/20 02/18/23 History multivitamin 1 tab PO DAILY 06/14/20 02/18/23 History flash glucose scanning reader #1 ea 04/09/21 02/17/23 Rx (FreeStyle Alfredo 2 [place]) flash glucose sensor (FreeStyle #2 ea 04/09/21 02/17/23 Rx Alfredo 2 Sensor kit) needle (disp) 21 G 21 gauge x 1 #100 ea 04/12/21 02/17/23 Rx 1/2 (BD Regular [place]) aspirin 81 mg tablet,delayed 81 mg PO DAILY 08/12/21 02/18/23 History release (Adult Aspirin Regimen) rosuvastatin 40 mg tablet See Rx Instructions .Route 11/27/21 02/18/23 Rx .COMPLEX #90 tabs triamcinolone acetonide 0.5 % 1 applic topical BID PRN 11/27/21 02/18/23 Rx topical ointment dermatitis #80 grams insulin aspart U-100 100 unit/mL 50 unit (0.5 mL) subcut AC #70 mL 05/02/22 02/18/23 Rx (3 mL) subcutaneous pen (Novolog FlexPen U-100 Insulin aspart) insulin glargine 100 unit/mL (3 70 unit (0.7 mL) subcut BID #90 mL 08/06/22 02/18/23 Rx mL) subcutaneous pen (Basaglar KwikPen U-100 Insulin) chlorthalidone 25 mg tablet 25 mg PO DAILY #90 tabs 10/01/22 02/18/23 Rx pen needle, diabetic 31 gauge x #100 ea 10/16/22 02/17/23 Rx 5/16 (BD Ultra-Fine Short Pen Needle) carvedilol 25 mg tablet 25 mg PO BID #180 tabs 11/07/22 02/18/23 Rx clopidogrel 75 mg tablet 75 mg PO DAILY #90 tabs 12/22/22 02/18/23 Rx pregabalin 150 mg capsule 150 mg PO TID #90 caps 01/09/23 02/18/23 Rx hydrocodone 7.5 mg-acetaminophen 1 tab PO BID PRN back pain #56 tabs 01/26/23 02/18/23 Rx 325 mg tablet nitroglycerin 0.4 mg sublingual 0.4 mg sublingual Q5-15M PRN chest 02/17/23 02/18/23 Rx tablet pain #25 tabs Exam Narrative Exam Narrative: Constitutional: Alert and oriented x3. Appears stated age. Obese l body habitus. Pleasant and interactive. Head: Normocephalic, no trauma. Eyes: Pupils PERRL, sclera clear. CV: RRR. Resp: Lungs clear to auscultation bilaterally, nonlabored breathing. Abdomen: Soft, obese, non-distended, Normoactive bowel sounds Skin: Capillary refill less than 2 sec. Brawny skin discoloration below the kne es, small pinpoint ulcer noted to his left great toe. Multiple amputated toes to his right lower extremity. Bull's-eye rash noted on mid lower back. Neurologic: Cranial nerves II-XII intact. Alert and oriented x 3. Motor: No deficits noted. Sensory: Intact bilaterally all 4 extremities. Hematologic/Lymphatic: No ecchymosis, no lymphadenopathy. Results Labs 02/18/23 14:12 02/18/23 14:12 Labs: Laboratory Results - last 24 hr 02/18/23 02/18/23 02/18/23 14:12 14:12 14:12 WBC 10.59 RBC 4.68 Hgb 13.8 Hct 40.6 MCV 87 MCH 29.5 MCHC 34.0 RDW 13.5 Plt Count 114 L MPV 10.7 Immature Gran % 0.3 Neutrophils % 90.6 Lymphocytes % 1.9 Monocytes % 5.8 Eosinophils % 1.2 Basophils % 0.2 Nucleated RBC % 0.0 Absolute Neutrophils 9.60 H Absolute Lymphocytes 0.20 L Absolute Monocytes 0.61 Absolute Eosinophils 0.13 Absolute Basophils 0.02 PT INR APTT VBG Lactate 2.3 H* Sodium 137 Potassium 3.9 Chloride 97 L Carbon Dioxide 31.7 Anion Gap 8.3 BUN 58 H Creatinine 2.0 H Est GFR (CKD-EPI 2020) 35.91 Glucose 217 H Calcium 9.6 Magnesium 1.7 L Total Bilirubin 1.0 AST 23 ALT 28 Alkaline Phosphatase 102 Troponin I 67 H* Total Protein 8.3 H Albumin 4.0 Urine Color Urine Clarity Urine pH Ur Specific [place] Urine Protein Urine Ketones Urine Blood Urine Nitrite Urine Bilirubin Urine Urobilinogen Ur Leukocyte Esterase Urine RBC Urine WBC Ur Epithelial Cells Urine Crystals Urine Bacteria Urine Casts Urine Mucus Ur Culture Indicated? Urine Glucose 02/18/23 02/18/23 02/18/23 14:12 16:10 16:15 WBC RBC Hgb Hct MCV MCH MCHC RDW Plt Count MPV Immature Gran % Neutrophils % Lymphocytes % Monocytes % Eosinophils % Basophils % Nucleated RBC % Absolute Neutrophils Absolute Lymphocytes Absolute Monocytes Absolute Eosinophils Absolute Basophils PT 9.8 INR 1.0 APTT 23.3 VBG Lactate Sodium Potassium Chloride Carbon Dioxide Anion Gap BUN Creatinine Est GFR (CKD-EPI 2020) Glucose Calcium Magnesium Total Bilirubin AST ALT Alkaline Phosphatase Troponin I 98 H* Cancelled Total Protein Albumin Urine Color Urine Clarity Urine pH Ur Specific [place] Urine Protein Urine Ketones Urine Blood Urine Nitrite Urine Bilirubin Urine Urobilinogen Ur Leukocyte Esterase Urine RBC Urine WBC Ur Epithelial Cells Urine Crystals Urine Bacteria Urine Casts Urine Mucus Ur Culture Indicated? Urine Glucose 02/18/23 02/18/23 16:25 19:10 WBC RBC Hgb Hct MCV MCH MCHC RDW Plt Count MPV Immature Gran % Neutrophils % Lymphocytes % Monocytes % Eosinophils % Basophils % Nucleated RBC % Absolute Neutrophils Absolute Lymphocytes Absolute Monocytes Absolute Eosinophils Absolute Basophils PT INR APTT VBG Lactate Sodium Potassium Chloride Carbon Dioxide Anion Gap BUN Creatinine Est GFR (CKD-EPI 2020) Glucose Calcium Magnesium Total Bilirubin AST ALT Alkaline Phosphatase Troponin I 188 H* Total Protein Albumin Urine Color Yellow Urine Clarity Clear Urine pH 5.0 Ur Specific [place] 1.010 Urine Protein 100 H Urine Ketones Negative Urine Blood Trace-lysed H Urine Nitrite Negative Urine Bilirubin Negative Urine Urobilinogen 0.2 Ur Leukocyte Esterase Negative Urine RBC 0-2 Urine WBC Negative Ur Epithelial Cells Rare Urine Crystals Negative Urine Bacteria Negative Urine Casts 0-2 Hyaline Urine Mucus Negative Ur Culture Indicated? No Urine Glucose Negative Last Vital Signs Temp 37.1 C 02/18/23 16:31 Pulse 71 02/18/23 18:01 Resp 20 02/18/23 16:31 BP 120/51 L 02/18/23 18:01 Pulse Ox 90 L 02/18/23 18:01 Time Spent Time spent with Patient: 40-54 minutes Time was spent: preparing to see the patient(eg.review tests), obtaining and/or reviewing separately otained hiistory, ordering medications,tests, procedures, referring, communicating with other health career development director, indepentently interpreting results and counseling the patient
[2023-02-18 21:06] LABS: Lab Add On Test DONE
[2023-02-18] MEDS: Normal Saline Flush 10 ML SYR IVP (21:11)
[2023-02-18] MEDS: Rosuvastatin 10 MG TAB 40 MG PO (21:12)
[2023-02-18] MEDS: Carvedilol 25 MG TAB PO (21:14)
[2023-02-18] MEDS: MAGNESIUM SULFATE 2 GM/50 ML BAG IVPB (21:14)
[2023-02-18] MEDS: Enoxaparin 40 MG/0.4 ML SYR SC (21:15)
[2023-02-18] MEDS: Acetaminophen 325 MG TAB PO (21:16)
[2023-02-18] MEDS: Insulin Glargine 300 UNITS/3 ML PEN 70 UNITS SC (21:17)
[2023-02-18 21:28] LABS: NT-proBNP 3193 pg/mL (<300)
[2023-02-18] MEDS: hydrOXYzine HCL 25 MG TAB PO (22:23)
[2023-02-18] MEDS: Pregabalin 50 MG CAP 150 MG PO (22:23)
[2023-02-18 22:44] LABS: Troponin I 168 ng/L (<or=60)
[2023-02-19] VITALS (50 sets, daily range): BP systolic 124–147; BP diastolic 52–80; PULSE 55–137; RESP 13–25; TEMP 36.5–37.8; O2SAT 92–95
--- NOTE | 2023-02-19 | DI.US_ITS ---
Exam(s) US RENAL EXAM: US RENAL CLINICAL HISTORY: CARYL on CKD. TECHNIQUE: Sandhu scale, color and spectral Doppler were used. COMPARISON: CT CT ABDOMEN PELVIS WO from 06/29/2022 FINDINGS: Renal size in cm: Right: 13.2. Left: 11.4. Echogenicity: Normal. Hydronephrosis: No. Cyst or mass: No. Nephrolithiasis: No. Other findings: There is mild bilateral renal cortical atrophy. Bladder:There does appear to be a small amount of debris within the urinary bladder. There is artifa ct also present. Ureteral jets: Right: Visualized and unremarkable. Left: Visualized and unremarkable. Prevoid vol:586 cc Postvoid vol:The patient declined feeling the need to urinate. Renal color flow: Symmetric and within normal limits. IMPRESSION: 1. Mild renal cortical atrophy. Otherwise unremarkable kidneys. 2. Large urinary bladder volume with a question of some debris in the base of the bladder. The patie nt did not feel the need to void during the examination. DATA REPOSITORY:
[2023-02-19] MEDS: cefTRIAXone 2 GM/50 ML BAG IVPB ×2 (05:45→08:47)
[2023-02-19 05:59] LABS: Lactate 1.4 mmol/L (0.6-1.4)
[2023-02-19 06:04] LABS: Abs Immature Grans 0.05 10^3/uL (0.0-0.06); Absolute Basophil Count 0.06 10^3/uL (0.0-0.2); Absolute Lymphocyte Count 0.39 10^3/uL (1.2-3.4); Absolute Monocyte Count 1.25 10^3/uL (0.1-0.8); Basophils % 0.5; Eosinophils % 0.2; HCT 35.4 % (40.0-50.0); HGB 12.2 g/dL (13.5-17.5); Immature Grans % 0.4; Lymphocytes % 3.1; MCH 30.3 pg (27.0-33.0); MCHC 34.5 % (32.0-36.0); MCV 88 fL (80-95); MPV 10.8 fL (8.0-11.0); Monocytes % 9.9; Neutrophils % 85.9; Platelet Count 107 10^3/uL (130-400); RBC 4.02 10^6/uL (4.36-5.78); RDW 14.1 % (11.8-14.1); RDW-SD 45.3 fL; WBC 12.63 10^3/uL (4.4-10.8)
[2023-02-19 06:05] LABS: Absolute Eosinophil Count 0.03 10^3/uL (0.0-0.7); Absolute Neutrophil Count 10.85 10^3/uL (1.2-6.7)
[2023-02-19 06:15] LABS: Anion Gap 7.2 mmol/L (3-11); BUN 69 mg/dL (7-18); CO2 29.8 mmol/L (21.0-32.0); CREATININE 2.5 mg/dL (0.70-1.30); Calcium 8.9 mg/dL (8.5-10.1); Chloride 94 mmol/L (98-107); Estimated GFR 27.47 (mL/min/1.73m2); Glucose 236 mg/dL (74-106); Magnesium 2.2 mg/dL (1.8-2.4); Sodium 131 mmol/L (136-145)
--- NOTE | 2023-02-19 07:00 | RT.EKG_ITS ---
APPROVED REPORT Exam: Resting ECG Reason for Exam: elevated troponin Patient Location: I HR:58 bpm ECG Measurements Heart Rate 58 AXIS WA 231 P 39 QRSd 182 QRS 88 QT 493 T 27 QTc 485 Conclusion Sinus rhythm...normal P axis, V-rate 50- 99 Supraventricular bigeminy...bigeminy string>4 w/ SV complexes Prolonged WA interval...WA >220, V-rate 50- 90 Right bundle branch block...QRSd>120, terminal axis(90,270)
[2023-02-19 08:03] LABS: Lab Add On Test DONE
[2023-02-19 08:27] LABS: C-Reactive Protein 16.69 mg/dL (0.0-0.3)
[2023-02-19] MEDS: Pregabalin 50 MG CAP 150 MG PO ×3 (08:29→20:50)
[2023-02-19] MEDS: Clopidogrel 75 MG TAB PO (08:29)
[2023-02-19] MEDS: Aspirin E.C. 81 MG TABEC PO (08:29)
[2023-02-19] MEDS: Senna TAB 1 TAB PO ×2 (08:29→20:51)
[2023-02-19] MEDS: Multivitamin TAB 1 TAB PO (08:29)
[2023-02-19] MEDS: Carvedilol 25 MG TAB PO ×2 (08:29→20:51)
[2023-02-19 08:30] LABS: Creatine Kinase 1465 U/L (39-308)
[2023-02-19] MEDS: Insulin Aspart 300 UNITS/3 ML PEN 50 UNITS SC ×3 (08:36→17:23)
[2023-02-19] MEDS: Insulin Aspart 300 UNITS/3 ML PEN SC ×2 (08:37→12:08)
[2023-02-19 08:38] LABS: Procalcitonin 1.6 ng/mL
[2023-02-19] MEDS: Insulin Glargine 300 UNITS/3 ML PEN 70 UNITS SC ×2 (08:38→21:11)
[2023-02-19] MEDS: DOXYCYCLINE 100 MG in Normal Saline 100 ML IVPB ×2 (10:17→22:17)
--- NOTE | 2023-02-19 10:41 | W.PM.PROGNOT ---
Date of Service Date of service: 02/19/23 Time of Service: 08:30 Assessment and Plan Assessment and plan (1) Sepsis: Status: Acute Assessment and plan: W/ active Lyme disease as well as GPC bacteremia. Add vancomycin. Continue ceftriaxone 2 grams daily. Repeat blood cultures. (2) Gram-positive cocci bacteremia: Status: Acute Assessment and plan: As above Will need an echocardiogram when available (3) Acute Lyme disease: Status: Acute Assessment and plan: With question of Lyme carditis based on evidence of new AV block. Continue high dose ceftriaxone. I also added doxycycline until we can definitively rule out anaplasma. Continue to monitor on tele. No echo in house until next week; having said this, no evidence of CHF and no chest pain. Troponin elevation was mild and EKG is unchanged. Consider a cardiology consult. (4) Elevated troponin: Status: Acute Assessment and plan: As above. I feel that this is more likely to be related to Lyme carditis given evidence of 1st degree AV block on EKG. Demand ischemia is also possible, but there is no evidence of true ACS. Continue to monitor on tele. Already on asa, plavix, statin, coreg. (5) Coronary artery disease involving [place] coronary artery of [place] heart with unstable angina pectoris: Status: Chronic Assessment and plan: Continue LITZY, coreg, statin. Continue monitoring on Telemetry. (6) Congestive heart failure: Assessment and plan: Not clinically in fluid overload. Pro BNP is elevated. Will give gentle IVF as in rhabdo, but will likely need diuretics to sudeep the fluid. No echo available in house until Thursday. Continue to monitor volume status. (7) Diabetes mellitus type 2, insulin dependent: Status: Acute Assessment and plan: Titrate basal bolus insulin. (8) Hypertension: Status: Chronic Assessment and plan: Continue carvedilol; hold diuretic given CARYL on CKD. Qualifiers: Hypertension type: essential hypertension Qualified Code(s): I10 - Essential (primary) hypertension (9) Hyperlipidemia: Status: Chronic Assessment and plan: Hold rosuvastatin given rhabdomyolysis Qualifiers: Hyperlipidemia type: unspecified Qualified Code(s): E78.5 - Hyperlipidemia, unspecified (10) Acute kidney injury superimposed on chronic kidney disease: Status: Acute Assessment and plan: In presence of rhabdo but also a large urinary volume in the baldder on US. Hold statin and diuretics. IVF. Trend CPK. Check bladder scans. (11) Rhabdomyolysis: Status: Acute Assessment and plan: D/c statin. Consider limited IVF. (12) DVT prophylaxis: Status: Acute Assessment and plan: SC enoxaparin (13) Discharge planning issues: Status: Acute Assessment and plan: Full Code. DVT prophylaxis with lovenox. Subjective Subjective Interval history since last seen: Mr Melara feels better. By this, he means he feels stronger, has more coordination in his hands. He is not nauseated anymore. He still has a hard time sitting up in bed independently and does not feel back to normal. He denies dizziness, chest pain, shortness of breath, headache. Exam Narrative Exam Narrative: General: Pleasant obese male who is A&Ox3, appears tired/weak, requires a two person assist to sit up in bed HEENT: EOMI, MMM Heart: RRR, no m/r/g Lungs: Diminished breath sounds at B bases, otherwise CTAB Abdomen: soft, rotund, nontender Extremities: trace edema BLEs, no evidence of cellulitis, no c/c. Objective Last Vital Signs Temp 37.8 C H 02/19/23 10:23 Pulse 68 02/19/23 10:23 Resp 16 02/19/23 10:23 BP 124/52 L 02/19/23 10:23 Pulse Ox 94 02/19/23 10:23 Laboratory Results - last 24 hr 02/18/23 02/18/23 02/18/23 14:12 14:12 14:12 WBC 10.59 RBC 4.68 Hgb 13.8 Hct 40.6 MCV 87 MCH 29.5 MCHC 34.0 RDW 13.5 Plt Count 114 L MPV 10.7 Immature Gran % 0.3 Neutrophils % 90.6 Lymphocytes % 1.9 Monocytes % 5.8 Eosinophils % 1.2 Basophils % 0.2 Nucleated RBC % 0.0 Absolute Neutrophils 9.60 H Absolute Lymphocytes 0.20 L Absolute Monocytes 0.61 Absolute Eosinophils 0.13 Absolute Basophils 0.02 PT INR APTT VBG Lactate 2.3 H* Sodium 137 Potassium 3.9 Chloride 97 L Carbon Dioxide 31.7 Anion Gap 8.3 BUN 58 H Creatinine 2.0 H Est GFR (CKD-EPI 2020) 35.91 Glucose 217 H Calcium 9.6 Magnesium 1.7 L Total Bilirubin 1.0 AST 23 ALT 28 Alkaline Phosphatase 102 Creatine Kinase Troponin I 67 H* C-Reactive Protein NT-Pro-B Natriuret Pep Total Protein 8.3 H Albumin 4.0 Procalcitonin Urine Color Urine Clarity Urine pH Ur Specific [place] Urine Protein Urine Ketones Urine Blood Urine Nitrite Urine Bilirubin Urine Urobilinogen Ur Leukocyte Esterase Urine RBC Urine WBC Ur Epithelial Cells Urine Crystals Urine Bacteria Urine Casts Urine Mucus Ur Culture Indicated? Urine Glucose Add-On Test Request 02/18/23 02/18/23 02/18/23 14:12 16:10 16:15 WBC RBC Hgb Hct MCV MCH MCHC RDW Plt Count MPV Immature Gran % Neutrophils % Lymphocytes % Monocytes % Eosinophils % Basophils % Nucleated RBC % Absolute Neutrophils Absolute Lymphocytes Absolute Monocytes Absolute Eosinophils Absolute Basophils PT 9.8 INR 1.0 APTT 23.3 VBG Lactate Sodium Potassium Chloride Carbon Dioxide Anion Gap BUN Creatinine Est GFR (CKD-EPI 2020) Glucose Calcium Magnesium Total Bilirubin AST ALT Alkaline Phosphatase Creatine Kinase Troponin I 98 H* Cancelled C-Reactive Protein NT-Pro-B Natriuret Pep Total Protein Albumin Procalcitonin Urine Color Urine Clarity Urine pH Ur Specific [place] Urine Protein Urine Ketones Urine Blood Urine Nitrite Urine Bilirubin Urine Urobilinogen Ur Leukocyte Esterase Urine RBC Urine WBC Ur Epithelial Cells Urine Crystals Urine Bacteria Urine Casts Urine Mucus Ur Culture Indicated? Urine Glucose Add-On Test Request 02/18/23 02/18/23 02/18/23 16:25 19:10 19:10 WBC RBC Hgb Hct MCV MCH MCHC RDW Plt Count MPV Immature Gran % Neutrophils % Lymphocytes % Monocytes % Eosinophils % Basophils % Nucleated RBC % Absolute Neutrophils Absolute Lymphocytes Absolute Monocytes Absolute Eosinophils Absolute Basophils PT INR APTT VBG Lactate Sodium Potassium Chloride Carbon Dioxide Anion Gap BUN Creatinine Est GFR (CKD-EPI 2020) Glucose Calcium Magnesium Total Bilirubin AST ALT Alkaline Phosphatase Creatine Kinase Troponin I 188 H* C-Reactive Protein NT-Pro-B Natriuret Pep 3193 H Total Protein Albumin Procalcitonin Urine Color Yellow Urine Clarity Clear Urine pH 5.0 Ur Specific [place] 1.010 Urine Protein 100 H Urine Ketones Negative Urine Blood Trace-lysed H Urine Nitrite Negative Urine Bilirubin Negative Urine Urobilinogen 0.2 Ur Leukocyte Esterase Negative Urine RBC 0-2 Urine WBC Negative Ur Epithelial Cells Rare Urine Crystals Negative Urine Bacteria Negative Urine Casts 0-2 Hyaline Urine Mucus Negative Ur Culture Indicated? No Urine Glucose Negative Add-On Test Request 02/18/23 02/18/23 02/19/23 21:05 22:11 05:45 WBC RBC Hgb Hct MCV MCH MCHC RDW Plt Count MPV Immature Gran % Neutrophils % Lymphocytes % Monocytes % Eosinophils % Basophils % Nucleated RBC % Absolute Neutrophils Absolute Lymphocytes Absolute Monocytes Absolute Eosinophils Absolute Basophils PT INR APTT VBG Lactate Sodium 131 L Potassium 4.0 Chloride 94 L Carbon Dioxide 29.8 Anion Gap 7.2 BUN 69 H Creatinine 2.5 H Est GFR (CKD-EPI 2020) 27.47 Glucose 236 H Calcium 8.9 Magnesium 2.2 Total Bilirubin AST ALT Alkaline Phosphatase Creatine Kinase Troponin I 168 H* C-Reactive Protein NT-Pro-B Natriuret Pep Total Protein Albumin Procalcitonin Urine Color Urine Clarity Urine pH Ur Specific [place] Urine Protein Urine Ketones Urine Blood Urine Nitrite Urine Bilirubin Urine Urobilinogen Ur Leukocyte Esterase Urine RBC Urine WBC Ur Epithelial Cells Urine Crystals Urine Bacteria Urine Casts Urine Mucus Ur Culture Indicated? Urine Glucose Add-On Test Request DONE 02/19/23 02/19/23 02/19/23 05:45 05:45 05:45 WBC 12.63 H RBC 4.02 L Hgb 12.2 L Hct 35.4 L MCV 88 MCH 30.3 MCHC 34.5 RDW 14.1 Plt Count 107 L MPV 10.8 Immature Gran % 0.4 Neutrophils % 85.9 Lymphocytes % 3.1 Monocytes % 9.9 Eosinophils % 0.2 Basophils % 0.5 Nucleated RBC % 0.0 Absolute Neutrophils 10.85 H Absolute Lymphocytes 0.39 L Absolute Monocytes 1.25 H Absolute Eosinophils 0.03 Absolute Basophils 0.06 PT INR APTT VBG Lactate 1.4 Sodium Potassium Chloride Carbon Dioxide Anion Gap BUN Creatinine Est GFR (CKD-EPI 2020) Glucose Calcium Magnesium Total Bilirubin AST ALT Alkaline Phosphatase Creatine Kinase Troponin I C-Reactive Protein NT-Pro-B Natriuret Pep Total Protein Albumin Procalcitonin Urine Color Urine Clarity Urine pH Ur Specific [place] Urine Protein Urine Ketones Urine Blood Urine Nitrite Urine Bilirubin Urine Urobilinogen Ur Leukocyte Esterase Urine RBC Urine WBC Ur Epithelial Cells Urine Crystals Urine Bacteria Urine Casts Urine Mucus Ur Culture Indicated? Urine Glucose Add-On Test Request DONE 02/19/23 02/19/23 05:45 05:45 WBC RBC Hgb Hct MCV MCH MCHC RDW Plt Count MPV Immature Gran % Neutrophils % Lymphocytes % Monocytes % Eosinophils % Basophils % Nucleated RBC % Absolute Neutrophils Absolute Lymphocytes Absolute Monocytes Absolute Eosinophils Absolute Basophils PT INR APTT VBG Lactate Sodium Potassium Chloride Carbon Dioxide Anion Gap BUN Creatinine Est GFR (CKD-EPI 2020) Glucose Calcium Magnesium Total Bilirubin AST ALT Alkaline Phosphatase Creatine Kinase 1465 H Troponin I C-Reactive Protein 16.69 H NT-Pro-B Natriuret Pep Total Protein Albumin Procalcitonin 1.6 Urine Color Urine Clarity Urine pH Ur Specific [place] Urine Protein Urine Ketones Urine Blood Urine Nitrite Urine Bilirubin Urine Urobilinogen Ur Leukocyte Esterase Urine RBC Urine WBC Ur Epithelial Cells Urine Crystals Urine Bacteria Urine Casts Urine Mucus Ur Culture Indicated? Urine Glucose Add-On Test Request Objective Narrative Objective Narrative: EKG: HR 58, SB w/ 1st degree AV block, RBBB, LPFB, unchanged. US renal: 1. Mild renal cortical atrophy.? Otherwise unremarkable kidneys. 2. Large urinary bladder volume with a question of some debris in the base of the bladder.? The patient did not feel the need to void during the examination.? PAWSS Have you Been Recently Intoxicated or Drunk Within the Last 30 days?: No Have you Ever Experienced Previous Episodes of Alcohol Withdrawal?: No Have you ever Experienced Withdrawal Seizures?: No Have you ever Experienced Delirium Tremens(DT)s?: No Have you ever undergone Alcohol Rehabilitation Treatment (i.e, inpt ot outpatient treatment programs)?: No Have you ever Experienced Blackouts?: No Have you ever Combined Alcohol with other Downers within the last 90 days?: No Have you ever Combined Alcohol with any other Substance of Abuse during the last 90 days?: No Positive Blood Alcohol level on Presentation? [PCS.BAL]: No Evidence of Increased Autonomic Activity (i.e. HR>120, tremor, sweating, agitation, nausea)?: No Result: 0 Time Spent with Patient Time Spent with Patient: 35-49 minutes Time was spent: preparing to see the patient(eg.review tests), obtaining and/or reviewing separately otained hiistory, ordering medications,tests, procedures, referring, communicating with other health primary care nurse practitioner, indepentently interpreting results, counseling the patient and care coordination
[2023-02-19] MEDS: VANCOMYCIN/WATER (PEG) 1.25 GM/250 ML BAG IVPB (11:36)
[2023-02-19] MEDS: Lactated Ringers 1,000 ML 100 ML IV ×2 (11:43→20:50)
--- NOTE | 2023-02-19 12:18 | PDOC.CMIN ---
Date of service: 02/19/23 Time of Service: 12:19 Care Management Initial Assmt Initial Assessment REASON FOR HOSPITALIZATION:: Lyme's Disease PREVIOUS FUNCTIONAL STATUS/SOCIAL/FAMILY SUPPORTS:: Bereket lives in a single family home in [place] with his Richardson. They have 5 children and 14 grandchildren. 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 He uses a stick when needed for ambulatory assistance and does not receive any community services. CURRENT FUNCTIONAL STATUS:: Bereket was sitting up in a chair when CM met with him. His , Richardson was visiting. He stated that he feels good today, and is hoping to return home in the next day or two. He stated that he is very independent, and still works here and there to stay busy. Per report, his blood cultures will be repeated. He is on IV abx for sepsis and bacteremia. He does not feel that he will require services upon discharge. CM will continue to follow. ADVANCE DIRECTIVES:: Not on file, CM will offer forms. Has patient been provided with info about the portal/API?: Yes Did the patient sign up for the portal?: Yes CODE STATUS:: Full Code INSURANCE COVERAGE / FINANCIAL ISSUES:: [facility] CURRENT HOME/COMMUNITY SERVICES/EQUIPMENT:: Bereket has a cane, walker, lift chair and a hospital-type bed. PRIMARY CARE PHYSICIAN:: Jarrod Schultz POTENTIAL DISCHARGE NEEDS:: Evaluations for further needs, follow up appointments. PATIENT/FAMILY EDUCATION NEEDS:: Review discharge instructions and limitations, discussion of self care needs including ask me three. ANTICIPATED BARRIERS TO DISCHARGE:: None identified. TRANSPORTATION:: Via private vehicle with family PLAN:: Bereket will likely return home when medically cleared. His will drive him home via private vehicle. He will follow up with his PCP and discharge plan of care. CM will continue to follow. PFSH All Active Problems (Updated 02/19/23 @ 11:02 by Lilia Victor MD) DVT prophylaxis (Acute) Rhabdomyolysis (Acute) Acute kidney injury superimposed on chronic kidney disease (Acute) Gram-positive cocci bacteremia (Acute) Sepsis (Acute) Elevated troponin (Acute) SIRS (systemic inflammatory response syndrome) (Acute) Erythema migrans (Lyme disease) (Acute) Discharge planning issues (Acute) Elevated troponin (Acute) Acute Lyme disease (Acute) Peripheral arterial disease (Acute) Nail dystrophy (Acute) Chronic foot ulcer (Acute) Hyperkalemia (Acute 07/26/14) Cellulitis (Acute) Diabetic foot infection (Acute) Leg wound, left (Acute) Diabetic retinopathy (Acute ~12/2021) B/L MODERATE-01/17 Edema (Acute) Gout (Chronic) 08/2021-diagnosed by rheumatology at [facility]-probable gout tophi of hands Obesity (Chronic) Diabetes mellitus type 2, insulin dependent (Acute) with nephropathy Chronic kidney disease (CKD) (Chronic) 08/2021- Cr 1.7 Hand arthritis (Acute) Amputation of toe (Acute) Cellulitis of foot, right (Acute) Diabetes mellitus type 2, insulin dependent (Acute) Right heart failure (Acute) Diabetic peripheral neuropathy (Chronic) Diabetic peripheral angiopathy (Chronic) Hypertension (Chronic) Chronic pain syndrome (Chronic) low back pain, drug contract at [facility]-V PMS and drug screen on 08/1221-patient on chronic hydrocodone Coronary artery disease involving [place] coronary artery of [place] heart with unstable angina pectoris (Chronic 08/30/17) 08-24-2017 [facility] [place] cardiac CATH: 3 vessel disease (LAD,LCx and RCA): coronary bypass sx pending Dyspnea on exertion (Chronic 12/16/13) negative nuclear stress test echocardiogram: normal/ EF 65%/no valvulopathy Cardiol.eval. : not ischemia related ([facility]) Peripheral autonomic neuropathy in disorders classified elsewhere (Chronic 09/15/14) Hyperlipidemia (Chronic) Medical History Congestive heart failure Diabetic foot ulcer DM (diabetes mellitus) 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 secondary to diabetic ulcer, angiopathy Laceration of lower leg with foreign body Lymphedema Obesity Proliferative diabetic retinopathy of both eyes without macular edema associated with diabetes mellitus due to underlying condition (01/18/18) 01/18/18-[facility] 01/31/19[place] Scrotal hematoma (07/26/14) A. S/p hydrocelectomy 07/24/14 Stroke (~2008) TIA (transient ischemic attack) Surgical History H/O surgical procedure A. Hydrocelectomy 07/24/2014 History of cataract removal with insertion of prosthetic lens History of hydrocelectomy (07/24/14) right S/P CABG x 3 (08/30/17) [facility] 08-29-2017 : no fup needed Family History Mother No problems noted. Father Diabetes Myocardial infarction Heart disease Sister Diabetes Social History Smoking/Tobacco Use Status: Former Tobacco Use Quit Date: 09/28/83 Tobacco: How many years used: 5 Smoking risk assessment performed?: Yes Alcohol Intake: current Alcohol Intake frequency: holidays/special occasions only Drug use: Occasionally Substance use type: marijuana Pets and animals: Yes Pets and animals: cat(s) and dog(s) What type of physical activity do you participate in: none Do you feel safe at home: Yes Do you feel safe in your relationship?: Yes
[2023-02-19] MEDS: Acetaminophen 325 MG TAB PO (12:20)
--- NOTE | 2023-02-19 14:22 | OT.INIE ---
Occupational Therapy Notes Inpatient Occupational Therapy Evaluation Date: 02/19/23 Referring Doctor:Lilia Victor MD OT Orders: Non-Urgent Precautions: Fall, Standard, Full PATIENT PROFILE/ADMITTING DIAGNOSIS: Pt is a 68 year old male admitted in the ICU for the following dx of rhabdomyolysis, acute kidney injury, sepsis, elevated troponin, Lynme Disease, SIRS, chronic foot ulcer. Past Medical History: All Active Problems?(Updated 02/18/23 @ 20:58 by Jamie Corona MD) Discharge planning issues (Acute) Elevated troponin (Acute) Acute Lyme disease (Acute) Peripheral arterial disease (Acute) Nail dystrophy (Acute) Chronic foot ulcer (Acute) Hyperkalemia (Acute 07/26/14) Cellulitis (Acute) Diabetic foot infection (Acute) Leg wound, left (Acute) Diabetic retinopathy (Acute ~12/2021) B/L MODERATE-01/17Edema (Acute) Gout (Chronic) 08/2021-diagnosed by rheumatology at [facility]-probable? gout tophi of hands Obesity (Chronic) Diabetes mellitus type 2, insulin dependent (Acute) with nephropathyChronic kidney disease (CKD) (Chronic) 08/2021- Cr 1.7Hand arthritis (Acute) Amputation of toe (Acute) Cellulitis of foot, right (Acute) Diabetes mellitus type 2, insulin dependent (Acute) Right heart failure (Acute) Diabetic peripheral neuropathy (Chronic) Diabetic peripheral angiopathy (Chronic) Hypertension (Chronic) Chronic pain syndrome (Chronic) low back pain, drug contract at [facility]-V PMS and drug screen on 08/1221-patient on chronic hydrocodone Coronary artery disease involving [place] coronary artery of [place] heart with unstable angina pectoris (Chronic 08/30/17) 08-[place] [facility] [place] CATH: 3 vessel disease (LAD,LCx and RCA): coronary bypass sx pending Dyspnea on exertion (Chronic 12/16/13) negative nuclear stress test echocardiogram: normal/ EF 65%/no valvulopathy Cardiol.eval. :? not ischemia related ([facility]) Peripheral autonomic neuropathy in disorders classified elsewhere (Chronic 09/15/14) Hyperlipidemia (Chronic) Medical History? 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 S/p hydrocelectomy 07/24/14Stroke (~2008) TIA (transient ischemic attack) Surgical History? H/O surgical procedure A.? Hydrocelectomy 07/24/2014History of cataract removal with insertion of prosthetic lens History of hydrocelectomy (07/24/14) rightS/P CABG x 3 (08/30/17[place] [facility] [place] : no fup needed Social History/Home Situation: Pt states that he lives in a private home with his and rescue dog. He notes that he is (I) at baseline. He has 5 steps to enter his home with railings. He also notes that he has stairs to his basement which he does not need to go down too. He reports that he does not need any (A) with his dressing, bathing, toileting or eating. He reports that he recently had his bathroom re-done. He has a walk in shower and a raised toilet. He ambulates with a cane at baseline. Equipment owned/DME: cane SUBJECTIVE: Pt states that he feels so much better than he did prior. He reports that he is looking forward to going home. OBJECTIVE: General Observation: Pleasant, telemetry, bulls eye rash on back, BP cuff Mental Status: A&Ox4 Pain: no c/o pain ROM: RUE Shoulder WFL, elbow WFL, wrist WFL, IF/MP joint limited to deformity caused by gout which is chronic in nature for pt. He states that it limits his digit ROM. L UE Shoulder WFL, elbow WFL, wrist WFL, IF/MP joint limited to deformity caused by gout which is chronic in nature for pt. He states that it limits his digit ROM. STRENGTH: RUE 5/5 throughout LUE 5/5 throughout FUNCTIONAL MOBILITY/ADLS: BATHING Not directly performed with pt due to time of day. However pts functional ROM of his (B) UE allow him to cross midline, touch his head and reach towards his knees without limitations allow pt to perform this (I). DRESSING seated in wheelchair (I) with donning and doffing socks TOILETING (I) with nursing per pt report EATING seated (I) BALANCE: Static sitting Normal Dynamic Sitting Normal SPECIAL TESTS: Daily Activity Limitations Standardized Measure [facility] AM -PAC ?6 clicks? Daily Activity Inpatient Short Form: Raw score: 23 Standardized score: 51.12 CMS score: 15.86% INFORMED CONSENT/EDUCATION: Pt instructed in purpose of OT Consult and plan of care. ASSESSMENT: Patient is a 68-year-old male referred to occupational therapy services with diagnosis of rhabdomyolysis, acute kidney injury, sepsis, elevated troponin, Lynme Disease, SIRS, chronic foot ulcer. Patient presents with clinical signs and symptoms consistent with dx. Pt reports that he is (I) and is feeling much better than he was. He reports that he feels that when he came in he was much weaker but due to his current level of function he does not feel that he needs skilled Occupational Therapy services at this time. Due to this and from assessment, OT will plan to discharge pt from skilled OT services at this time. AMPAC score 23 Patient is assessed as a Low [id number] complexity based on the following: History: see above Examination: see functional limitations as noted above Presentation: evolving Decision Making: AMPAC score 23 GOALS N/A seen for OT consult only. PLAN OF CARE/TREATMENT PLAN: Discharge from skilled OT services. DISCHARGE RECOMMENDATIONS Home when medically cleared per MD. TREATMENT TIME/MINUTES/CODES 21478, 15 minutes (02:00) Rosie Hyde OTR/[facility]
--- NOTE | 2023-02-19 16:42 | PT.INIE ---
Date of service: 02/19/23 Time of Service: 14:25 PT Notes Visit Reasons: Lyme's Disease,Elevated tropin,Sepsis Physical Therapy Inpatient Initial Evaluation Date: 02/19/2023 Referring Doctor: Yoly Victor MD PT Orders: PT CONSULT: Limited ability Precautions: Fall. Standard. Activity as tolerated. Patient Profile/Admitting Diagnosis: Patient is an 68-year-old patient who presented to the ED on 02/18/2023 due to uncontrollable shaking and generalized weakness. Patient was admitted to the ICU for management of acute lyme disease, elevated troponin, CAD, CHF, DM Type II, CKD, PAD, Gout, HTN, chronic pain syndrome, hyperlipidemia. PMHX: All Active Problems?(Updated 02/18/23 @ 20:58 by Jamie Corona MD) Discharge planning issues (Acute) Elevated troponin (Acute) Acute Lyme disease (Acute) Peripheral arterial disease (Acute) Nail dystrophy (Acute) Chronic foot ulcer (Acute) Hyperkalemia (Acute 07/26/14) Cellulitis (Acute) Diabetic foot infection (Acute) Leg wound, left (Acute) Diabetic retinopathy (Acute ~12/2021) B/L MODERATE-01/17 Edema (Acute) Gout (Chronic) 08/2021-diagnosed by rheumatology at [facility]-probable? gout tophi of hands Obesity (Chronic) Diabetes mellitus type 2, insulin dependent (Acute) with nephropathy Chronic kidney disease (CKD) (Chronic) 08/2021- Cr 1.7 Hand arthritis (Acute) Amputation of toe (Acute) Cellulitis of foot, right (Acute) Diabetes mellitus type 2, insulin dependent (Acute) Right heart failure (Acute) Diabetic peripheral neuropathy (Chronic) Diabetic peripheral angiopathy (Chronic) Hypertension (Chronic) Chronic pain syndrome (Chronic) low back pain, drug contract at [facility]-V PMS and drug screen on 08/1221-patient on chronic hydrocodone Coronary artery disease involving [place] coronary artery of [place] heart with unstable angina pectoris (Chronic 08/30/17) 08-24-2017 [facility] [place] cardiac CATH: 3 vessel disease (LAD,LCx and RCA): coronary bypass sx pending Dyspnea on exertion (Chronic 12/16/13) negative nuclear stress test echocardiogram: normal/ EF 65%/no valvulopathy Cardiol.eval. :? not ischemia related ([facility]) Peripheral autonomic neuropathy in disorders classified elsewhere (Chronic 09/15/14) Hyperlipidemia (Chronic) Medical History? Congestive heart failure Diabetic foot ulcer DM (diabetes mellitus) 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 secondary to diabetic ulcer, angiopathy Laceration of lower leg with foreign body Lymphedema Obesity Proliferative diabetic retinopathy of both eyes without macular edema associated with diabetes mellitus due to underlying condition (01/18/18) 01/18/18[place] [place] 01/31/19-[facility] [place] Scrotal hematoma (07/26/14) A.? S/p hydrocelectomy 07/24/14Stroke (~2008) TIA (transient ischemic attack) Surgical History? H/O surgical procedure A.? Hydrocelectomy 07/24/2014 History of cataract removal with insertion of prosthetic lens History of hydrocelectomy (07/24/14) right S/P CABG x 3 (08/30/17) [facility] 08-29-2017? : no fup needed Social History/Home Situation: Lives with in a private home. Independent with all aspects of ADLs prior to admission. Occasionally uses [facility] outdoors. Equipment Owned/DME: [facility] Subjective: Agreeable to PT consult. States that his balance has been affected with toe amputations he has had in the past. Reports mild pain in the low bacj which he says he has had for quite a while. Objective: General Observation: Seated on wheelchair beside bed. IV through L UE. Nurse Janneth present for the first part of the evaluation. Mental Status: Alert and oriented as to person, place, time, and purpose. Able to pay attention, focus, and respond appropriately. Pain: Mild pain in low back area (chronic) Vital Signs: Closely monitored via tele ROM: Right Upper Extremity: Shoulder Flexion WFL. Shoulder abduction WFL. Elbow flexion WFL. Wrist flexion WFL. Functional opening and closing of hand WFL. Left Upper Extremity: Shoulder Flexion WFL. Shoulder abduction WFL. Elbow flexion WFL. Wrist flexion WFL. Functional opening and closing of hand WFL. Right Lower Extremity: Hip flexion WFL. Hip abduction WFL. Knee flexion WFL. Ankle dorsiflexion WFL. Ankle plantarflexion WFL. Left Lower Extremity: Hip flexion WFL. Hip abduction WFL. Knee flexion WFL. Ankle dorsiflexion WFL. Ankle plantarflexion WFL. Strength: Right Upper Extremity: Shoulder flexors 4/5. Shoulder abductors 4/5. Elbow flexors 5/5. Elbow extensors 5/5. Labor Specialist strong. Left Upper Extremity: Shoulder flexors 4/5. Shoulder abductors 4/5. Elbow flexors 5/5. Elbow extensors 5/5. Labor Specialist strong. Right Lower Extremity: Hip flexors 4/5. Hip abductors 4/5. Knee flexors 5/5. Knee extensors 4/5. Ankle dorsiflexors 4/5. Ankle plantarflexors 5/5. Left Lower Extremity: Hip flexors 4/5. Hip abductors 4/5. Knee flexors 5/5. Knee extensors 4/5. Ankle dorsiflexors 4/5. Ankle plantarflexors 5/5. Bed Mobility/Transfers: Sit to stand stand by assist Stand to sit stand by assist Bed to bedside commode stand by assist Bedside commode to bed stand by assist Bed to reclining chair stand by assist Reclining chair to bed stand by assist Gait: Instructed patient with level surface ambulation of 100 feet + 100 feet feet requiring FWW with stand by assist. Lizett decreased. Step height decreased. Step length decrased. Mild shortness of breath and fatigue observed, both subsided with rest. Balance: Static Sitting: Normal Dynamic Sitting: Normal Static Standing: Fair Dynamic Standing: Fair Special Tests: Mobility Limitations Standardized Measure [facility] AM-PAC 6 clicks Basic Mobility Inpatient Short Form: Raw Score: 23 CMS Score: 11% deficit Informed Consent/Education: Patient was instructed in purpose of PT consult and plan of care. Agreeable to proceed with established PT POC to achieve personal goals. Assessment: Patient presents with clinical signs and symptoms consistent with current/admitting diagnoses that have resulted to mobility limitations, gait instability, generalized weakness, and overall ADL decline as demonstrated by the following impairment level findings: 1. Decreased strength to B LE major muscle groups 2. Impaired sitting/standing balance 3. Impaired activity tolerance 4. Shortness of breath 5. Fatigue Impairments are contributing to the following functional limitations: 1. Decline in bed mobility skills 2. Decline in transfer skills 3. Difficulty with ambulation without assistive device and physical assistance 4. Increased completion time for mobility ADL performance 5. Increased risk for falls 6. Difficulty with managing steps alone safely Patient is assessed as a [id number] moderate complexity based on the following: History: 68-year-old female with past medical history as indicated above Examination: Demonstrable impairment in strength, balance, and mobility level with underlying impairments and functional limitations as exhibited above as well as deficit score of 11% utilizing the [facility] Mobility Inpatient Short Form Presentation: Evolving Decision Makin moderate complexity Goals: Goals X1 week 1. Supine-Sit independent 2. Sit-Supine independent 3. Sit-Stand independent 4. Stand-Sit independent with no AD 5. Bed-Chair independent with no AD 6. Chair-Bed independent with no AD 7. Independent gait on level surface with use of no AD for at least 300 feet without report of pain nor dyspnea 8. Independent stair negotiation while holding onto B rails for at least 3 steps without report of pain nor dyspnea 9. Independent with home exercise program 10. Good static and dynamic standing balance/tolerance Plan of Care/Treatment Plan: 1-2x/day, 7 days/week x 1 week. Plan of care has been reviewed with the WOUND/OSTOMY CLINICAL NURSE SPECIALIST providing the service under Physical Therapy direction. Initiate Physical Therapy intervention for pain management as needed, strengthening, bed mobility, transfers, gait, stairs, balance training, and use of assistive device. DISCHARGE RECOMMENDATIONS: [] Home with no services [] [X] Home with services. Patient will benefit from home health PT services in order to progress mobility level using least restrictive assistive ambulatory device, assess home safety, identify additional equipment needs, and establish a functional maintenance program that will increase ability of patient to remain at home. [] Home with outpatient PT [] [] SNF for continued rehabilitation [] [] [facility] Care [] [] SNF versus LTC based on ability to participate and progress [] TREATMENT CODE/TIME: 11353 x 22 minutes beginning at 14:25 PM. Thank you for the opportunity to participate in the care of this patient. Kimberly Enciso PT, DPT, CLT [facility] [place], [place]
[2023-02-19] MEDS: hydrOXYzine HCL 25 MG TAB PO (20:51)
[2023-02-19] MEDS: Enoxaparin 40 MG/0.4 ML SYR SC (20:52)
[2023-02-20] VITALS (14 sets, daily range): BP systolic 118–160; BP diastolic 46–74; PULSE 55–72; RESP 16–23; TEMP 36.6; O2SAT 95–98
--- NOTE | 2023-02-20 | DI.MRI_ITS ---
Exam(s) MR LUMBAR SPINE WO/W EXAM: MR LUMBAR SPINE WO/W CLINICAL HISTORY: bacteremia, back pain, r/o OM/septic discitis/absc. TECHNIQUE: Multiplanar multisequence MRI of the Lumbar spine was performed. Both pre and post contra st infused sequences performed. Contrast injected Dotarem 15 mL COMPARISON: CT CT ABDOMEN PELVIS WO from 06/29/2022 No plain filma lumbar spine available time this MRI interpretation. FINDINGS: Five lumbar vertebrae are presumed. No fractures nor listhesis. No abnormal intraosseous signal. No abnormal disc signal nor enhancemen t. Deep subcutaneous edema seen over the lumbar spine without a formed fluid collection. This is no t an uncommon finding, particularly in heavy patients. Conus medullaris is at normal level. There is no evidence of conus mass nor subjacent clumping of in trathecal nerve roots to suggest arachnoiditis. The distal thecal sac appears unremarkable.There is no evidence of Tarlov intrasacral cysts nor other significant findings within the sacral canal. Bones:There are no fractures nor ominous osseous lesions in the lumbar vertebral bodies and visualize d sacrum. No abnormal intraosseous enhancement. No abnormal disc signal nor disc enhancement to sug gest discitis. With respect to the individual levels... T12-L1: Some disc space narrowing evident but no disc herniation or central canal stenosis. Mild glen ateral foraminal stenosis due to the disc height loss. Mild degenerative changes in the facet joints . L1-2: Normal disc height and signal. No disc herniation nor central canal stenosis.No foraminal steno sis L2-3: Normal disc height. Normal disc signal. There is no distinct disc herniation. There is mild-m oderate central spinal canal stenosis due to short AP dimensions of the pedicles and mild symmetrical annular bulging.No foraminal stenosis.No facet arthropathy. L3-4: Normal disc height and signal. Mild central annular bulging. Moderate central spinal canal st enosis due to short AP dimensions of the pedicles and annular bulging. Mild degenerative changes in the facet joints. No foraminal stenosis. L4-5: There is mild disc space narrowing posteriorly. No abnormal disc signal. There is mild degene rative anterolisthesis of L4 upon L5 due to advanced bilateral facet arthropathy at this level. Ther e is central posterior subligamentous annular bulging evident. There is severe central spinal canal stenosis due to short AP dimensions the pedicles and the annular bulging and mild listhesis/facet art hropathy. There is, however, no foraminal stenosis evident. There is normal fat signal around the e xiting nerve roots bilaterally in the exiting neural foraminae. L5-S1: This level is exhibits chronic moderate disc space narrowing. Some vacuum phenomena seen with in the disc space but no abnormal signal nor disc enhancement to suggest discitis. Some annular bulg ing is noted at this level which is symmetrical. There is no dominant disc herniation. Central kylie l dimensions are lower normal. There is, however, some foraminal stenosis at this level on the left side due to disc height loss. Minimal narrowing of the exiting right neural foramen noted. Mild-mod erate facet joint degenerative changes. Soft tissues: paraspinal soft tissues appear unremarkable. IMPRESSION: 1. No evidence of discitis nor osteomyelitis, as per request. No evidence of the dural nor paraspina l abscess. 2. Multilevel central spinal canal stenosis, this being most severe at L4-5 level and is due to devel opmental short AP dimensions of the pedicles at multiple levels as well as some annular bulging and f acet arthropathy. At L4-5 level this is compounded by mild degenerative anterolisthesis of L4 upon L 5. There is, however, no foraminal stenosis at this level as there is no disc height loss. 3. There is some vertical foraminal stenosis at L5-S1 level on the left side. Lesser foraminal steno sis on the right side at this level due to slightly better preserved disc height on the right side at this level. DATA REPOSITORY:
[2023-02-20 07:31] LABS: Abs Immature Grans 0.05 10^3/uL (0.0-0.06); Absolute Basophil Count 0.02 10^3/uL (0.0-0.2); Absolute Lymphocyte Count 1.02 10^3/uL (1.2-3.4); Absolute Monocyte Count 1.44 10^3/uL (0.1-0.8); Absolute Neutrophil Count 5.61 10^3/uL (1.2-6.7); Basophils % 0.2; Eosinophils % 2.4; HGB 10.8 g/dL (13.5-17.5); Immature Grans % 0.6; Lymphocytes % 12.2; MCH 29.7 pg (27.0-33.0); MCHC 34.8 % (32.0-36.0); MCV 85 fL (80-95); MPV 11.3 fL (8.0-11.0); Monocytes % 17.3; Neutrophils % 67.3; Platelet Count 111 10^3/uL (130-400); RBC 3.64 10^6/uL (4.36-5.78); RDW 13.9 % (11.8-14.1); RDW-SD 43.1 fL; WBC 8.34 10^3/uL (4.4-10.8)
[2023-02-20] MEDS: cefTRIAXone 2 GM/50 ML BAG IVPB (07:50)
[2023-02-20 07:51] LABS: BUN 76 mg/dL (7-18); C-Reactive Protein 20.21 mg/dL (0.0-0.3); CREATININE 2.3 mg/dL (0.70-1.30); Calcium 8.5 mg/dL (8.5-10.1); Chloride 94 mmol/L (98-107); Estimated GFR 30.36 (mL/min/1.73m2); Glucose 87 mg/dL (74-106); Magnesium 2.1 mg/dL (1.8-2.4); Potassium 3.6 mmol/L (3.5-5.1); Sodium 131 mmol/L (136-145)
[2023-02-20 08:09] LABS: Hemoglobin A1C 7.6 % (<5.7)
[2023-02-20 08:37] LABS: Lab Add On Test DONE
[2023-02-20 08:58] LABS: Creatine Kinase 1507 U/L (39-308)
[2023-02-20] MEDS: DOXYCYCLINE 100 MG in Normal Saline 100 ML IVPB ×2 (10:02→21:24)
[2023-02-20] MEDS: Multivitamin TAB 1 TAB PO (10:03)
[2023-02-20] MEDS: Senna TAB 1 TAB PO ×2 (10:03→19:45)
[2023-02-20] MEDS: Pregabalin 50 MG CAP 150 MG PO ×3 (10:03→19:45)
[2023-02-20] MEDS: Carvedilol 25 MG TAB PO ×2 (10:03→19:45)
[2023-02-20] MEDS: Aspirin E.C. 81 MG TABEC PO (10:03)
[2023-02-20] MEDS: Clopidogrel 75 MG TAB PO (10:03)
[2023-02-20] MEDS: Insulin Glargine 300 UNITS/3 ML PEN 70 UNITS SC ×2 (10:49→19:49)
[2023-02-20] MEDS: Furosemide 40 MG/4 ML VIAL IVP ×2 (10:53→17:10)
[2023-02-20] MEDS: Normal Saline Flush 10 ML SYR IVP ×3 (10:54→15:08)
--- NOTE | 2023-02-20 11:24 | PDOC.CMPRO ---
Date of service: 02/20/23 Time of Service: 11:24 Care Management Progress Note Progress Note Text Progress Note Text: S/O: Bereket remains inpatient per MD. Awaiting blood culture results and IV ABX course recommendations. CM continues to follow. A: 68 year old male admitted to [facility] with Lyme's disease, elevated troponin, Sepsis P: Bereket will likely return home when medically cleared. His will drive him home via private vehicle. He will follow up with his PCP and discharge plan of care. CM will continue to follow.
[2023-02-20] MEDS: Insulin Aspart 300 UNITS/3 ML PEN 50 UNITS SC ×2 (12:04→17:10)
[2023-02-20] MEDS: VANCOMYCIN/WATER (PEG) 1.25 GM/250 ML BAG IVPB (12:36)
--- NOTE | 2023-02-20 12:43 | PGE_ITS ---
Date of Service Date of service: 02/20/23 Time of Service: 12:43 Assessment and Plan Assessment and plan (1) Sepsis: Status: Acute Assessment and plan: W/ active Lyme disease as well as Staph Aureus bacteremia (speciation pending). Continue vancomycin. Continue ceftriaxone 2 grams daily + doxycycline for the treatment of Lyme disease. Obtain an echocardiogram. Repeat blood cultures collected today and are pending. Obtain MRI lower back to ensure no epidural abscess/septic discitis/osteomyelitis. (2) Staphylococcus aureus bacteremia: Status: Acute Assessment and plan: As above (3) Acute Lyme disease: Status: Acute Assessment and plan: With question of Lyme carditis based on evidence of new AV block. Continue high dose ceftriaxone and doxycycline while we do not know the status of his anaplasma test. Continue to monitor on tele. Does have evidence of fluid overload today, diuresing. Echo pending. Troponin elevation was mild and EKG is unchanged. Consider a cardiology consult. (4) Congestive heart failure: Assessment and plan: Is in fluid overload today. Diuresing, monitoring I/Os, daily weights. Obtain echo. Continue to monitor volume status. (5) Acute kidney injury superimposed on chronic kidney disease: Status: Acute Assessment and plan: In presence of rhabdo but also a large urinary volume in the baldder on US. CPK not better. Add diuresis. Continue to trend CPK. Does have evidence of urinary retention by bladder scans today. Prn straight caths with khanna placement if straight caths are required x3 have been ordered. (6) Elevated troponin: Status: Acute Assessment and plan: As above. I feel that this is more likely to be related to Lyme carditis given evidence of 1st degree AV block on EKG. Demand ischemia is also possible, but there is no evidence of true ACS. Endocarditis is also a possibility. For an echo on Thursday. Continue to monitor on tele. Already on asa, plavix, statin, coreg. (7) Coronary artery disease involving [place] coronary artery of [place] heart with unstable angina pectoris: Status: Chronic Assessment and plan: Continue LITZY, coreg, statin. Continue monitoring on Telemetry. (8) Diabetes mellitus type 2, insulin dependent: Status: Acute Assessment and plan: Continue basal bolus insulin. (9) Hypertension: Status: Chronic Assessment and plan: Continue carvedilol. Qualifiers: Hypertension type: essential hypertension Qualified Code(s): I10 - Essential (primary) hypertension (10) Hyperlipidemia: Status: Chronic Assessment and plan: Hold rosuvastatin given rhabdomyolysis Qualifiers: Hyperlipidemia type: unspecified Qualified Code(s): E78.5 - Hyperlipidemia, unspecified (11) Rhabdomyolysis: Status: Acute Assessment and plan: Intolerant of IVF today. IVF d/c'ed. Started on furosemide. Trend CPK. Hold statin. (12) DVT prophylaxis: Status: Acute Assessment and plan: SC enoxaparin (13) Discharge planning issues: Status: Acute Assessment and plan: Full Code. DVT prophylaxis with lovenox. Subjective Subjective Interval history since last seen: Mr Melara is feeling better. Aches and pains in his body are better, though he does report lower back pain which has been getting worse for the last several weeks. Denies fecal incontinence. Does have urinary retention by bladder scans, it appears. Tmax 38.5 at 20:25 last night. Exam Narrative Exam Narrative: General: Pleasant obese male who is A&Ox3, looks better, able to sit up easier on his own today HEENT: EOMI, MMM Heart: RRR, no m/r/g Lungs: crackles R base. L lower back with a bulls-eye lesion Abdomen: soft, rotund, nontender Extremities:+1 edema BLEs, no evidence of cellulitis, no c/c. Objective Last Vital Signs Temp 37.5 C 02/19/23 23:15 Pulse 72 02/20/23 01:09 Resp 19 02/20/23 00:00 BP 125/80 02/19/23 23:42 Pulse Ox 92 02/19/23 23:15 Laboratory Results - last 24 hr 02/20/23 02/20/23 02/20/23 06:45 06:45 06:45 WBC 8.34 RBC 3.64 L Hgb 10.8 L Hct 31.0 L MCV 85 MCH 29.7 MCHC 34.8 RDW 13.9 Plt Count 111 L MPV 11.3 H Immature Gran % 0.6 Neutrophils % 67.3 Lymphocytes % 12.2 Monocytes % 17.3 Eosinophils % 2.4 Basophils % 0.2 Nucleated RBC % 0.0 Absolute Neutrophils 5.61 Absolute Lymphocytes 1.02 L Absolute Monocytes 1.44 H Absolute Eosinophils 0.20 Absolute Basophils 0.02 Sodium 131 L Potassium 3.6 Chloride 94 L Carbon Dioxide 28.0 Anion Gap 9.0 BUN 76 H Creatinine 2.3 H Est GFR (CKD-EPI 2020) 30.36 Glucose 87 Hemoglobin A1c 7.6 H Calcium 8.5 Magnesium 2.1 Creatine Kinase C-Reactive Protein 20.21 H Add-On Test Request 02/20/23 02/20/23 06:45 06:45 WBC RBC Hgb Hct MCV MCH MCHC RDW Plt Count MPV Immature Gran % Neutrophils % Lymphocytes % Monocytes % Eosinophils % Basophils % Nucleated RBC % Absolute Neutrophils Absolute Lymphocytes Absolute Monocytes Absolute Eosinophils Absolute Basophils Sodium Potassium Chloride Carbon Dioxide Anion Gap BUN Creatinine Est GFR (CKD-EPI 2020) Glucose Hemoglobin A1c Calcium Magnesium Creatine Kinase 1507 H C-Reactive Protein Add-On Test Request DONE PAWSS Have you Been Recently Intoxicated or Drunk Within the Last 30 days?: No Have you Ever Experienced Previous Episodes of Alcohol Withdrawal?: No Have you ever Experienced Withdrawal Seizures?: No Have you ever Experienced Delirium Tremens(DT)s?: No Have you ever undergone Alcohol Rehabilitation Treatment (i.e, inpt ot outpatient treatment programs)?: No Have you ever Experienced Blackouts?: No Have you ever Combined Alcohol with other Downers within the last 90 days?: No Have you ever Combined Alcohol with any other Substance of Abuse during the last 90 days?: No Positive Blood Alcohol level on Presentation? [PCS.BAL]: No Evidence of Increased Autonomic Activity (i.e. HR>120, tremor, sweating, agitation, nausea)?: No Result: 0 Time Spent with Patient Time Spent with Patient: 35-49 minutes Time was spent: preparing to see the patient(eg.review tests), obtaining and/or reviewing separately otained hiistory, ordering medications,tests, procedures, referring, communicating with other health healthcare management, indepentently interpreting results, counseling the patient and care coordination
--- NOTE | 2023-02-20 14:36 | PHA.REVIEW2 ---
Pharmacy Admission Review - Admission Clinical Review (Last Reviewed 02/18/23 @ 20:34 by Jamie Corona MD) Staphylococcus aureus bacteremia (Acute) DVT prophylaxis (Acute) Rhabdomyolysis (Acute) Acute kidney injury superimposed on chronic kidney disease (Acute) Gram-positive cocci bacteremia (Acute) Sepsis (Acute) Elevated troponin (Acute) SIRS (systemic inflammatory response syndrome) (Acute) Erythema migrans (Lyme disease) (Acute) Discharge planning issues (Acute) Elevated troponin (Acute) Acute Lyme disease (Acute) Peripheral arterial disease (Acute) Diabetes mellitus type 2, insulin dependent (Acute) cephalexin monohydrate [From Keflex] Allergy (Severe, Verified 02/17/23 09:09) SOB Penicillins Allergy (Unknown, Verified 02/17/23 09:09) Resuscitation Status Full Code Height 5 ft 10 in Weight 138.5 kg - Renal Dosing Renal Dosing: BUN 76 mg/dL (7-18) H 02/20/23 06:45 Creatinine 2.3 mg/dL (0.70-1.30) H 02/20/23 06:45 Medications needing adjustments: Reviewed (crcl = 43, no adjustments needed at this time. Monitor for changes in renal function) - Anticoagulation Anticoagulation: Hgb 10.8 g/dL (13.5-17.5) L 02/20/23 06:45 Hct 31.0 % (40.0-50.0) L 02/20/23 06:45 Plt Count 111 10^3/uL (130-400) L 02/20/23 06:45 INR 1.0 (0.9-1.1) 02/18/23 14:12 Creatinine 2.3 mg/dL (0.70-1.30) H 02/20/23 06:45 DVT Prophylaxis: Reviewed Medications: Enoxaparin (lovenox 40 mg daily) - Opiate Usage Evaluate Pain Scale/Pains Meds: Reviewed (hydrocodone 7.5/325 BID prn for back pain (home med)) Scheduled Bowel Reg ordered if on Opiates?: No (prn) - Relevant Labs Sodium 131 mmol/L (136-145) L 02/20/23 06:45 Potassium 3.6 mmol/L (3.5-5.1) 02/20/23 06:45 Chloride 94 mmol/L (98-107) L 02/20/23 06:45 Magnesium 2.1 mg/dL (1.8-2.4) 02/20/23 06:45 C-Reactive Protein 20.21 mg/dL (0.0-0.3) H 02/20/23 06:45 Electrolytes, C-Reactive P, ESR: Reviewed - DM Control DM Control: Glucose 87 mg/dL (74-106) 02/20/23 06:45 Hemoglobin A1c 7.6 % (<5.7) H 02/20/23 06:45 Finger Stick Blood Glucose 150 Finger Stick Blood Glucose 150 Finger Stick Blood Glucose 150 Finger Stick Blood Glucose 150 Finger Stick Blood Glucose 105 Finger Stick Blood Glucose 105 Finger Stick Blood Glucose 105 Finger Stick Blood Glucose 105 DM Control: Reviewed Insulin Dosing, Diabetic Medication: insulin aspart 50 units AC (home dose) + sliding scale w/meals + insulin glargine 70 units BID (home dose) - Cardiac Review Cardiac Review: Troponin I 168 ng/L (<or=60) H* 02/18/23 22:11 NT-Pro-B Natriuret Pep 3193 pg/mL (<300) H 02/18/23 19:10 BP, HR, EF%: Reviewed (?Lyme carditis) - Qtc Review QTc: Reviewed (QTc = 485 on 02/19/23. Caution w/ addition of QT prolonging meds (currently only on hydroxyzine)) - IV to PO Switch IV Medications: Reviewed (IV abx for now, switch to PO when appropriate) - Home Meds Home Med List reviewed: Reviewed Relevent Home Meds Not ordered & why?: Rosuvastatin dc'd (rhabdomyolysis). Lasix omitted from home med list therefore not ordered initially, confirmed dose with patient/: 40 mg in the morning + 40 mg in the afternoon prn SOB. Med list updated, lasix now ordered 40 mg IV BID - Current meds Current Medication Order Review: Reviewed Antibiotic Review - Pharmacy Antibiotic Review Pharmacy Antibiotic Activity: Reviewed, no change Relevant Labs: Relevant Labs 02/20/23 06:45 C-Reactive Protein 20.21 H - Antibiotic Information Antibiotic Review Info: Indication: Lyme disease, ?lyme carditis, staph bacteremia. ceftriaxone 2g daily, doxy 100 mg IV q12h, vancomycin 1.25 g daily (trough ordered for 02/22 @1100, random level w/morning labs 5/27). MRI today to r/o osteomyelitis/epidural abcess/septic discitis
[2023-02-20] MEDS: LORazepam 2 MG/ML VIAL 0.5 MG IVP (14:55)
[2023-02-20] MEDS: Gadoterate meglumine 20 ML SYRINGE IVP (15:08)
[2023-02-20 16:30] LABS: Lyme Ab w Rflx to Lyme Confirm Negative (Negative)
--- NOTE | 2023-02-20 17:45 | PTTR_ITS ---
Date of service: 02/20/23 Time of Service: 11:25 PT Notes Visit Reasons: Lyme's Disease,Elevated tropin,Sepsis Inpatient Physical Therapy Treatment Note [facility] Date: 02/20/23 PRECAUTIONS: Fall, standard, activity as tolerated. SUBJECTIVE: patient reports feeling fine, sitting in chair, agreeable to therapy OBJECTIVE: PAIN: none reported BED MOBILITY/TRANSFERS Sit-stand: Standby Stand-sit: Standby Bed-Chair: Standby Chair-bed:Standby GAIT Assistive Device: FWW Weight bearing: Full Assist: standby. IV management Distance: 110 feet, seated rest, 110 feet Deviation: Decreased step [place]. Patient does not use AD at baseline but requested FWW over SPC today as he still feels unsteady VITALS: irregular heart rate according to telemetry alarm. 64-68 bpm, SaO2 94- 96% ASSESSMENT: patient returns to chair, resting comfortably at end of treatment. Reports no nausea, shortness of breath. Call magallanes within easy reach. PLAN: Continue strengthening per plan of care until patient medically cleared for discharge. TREATMENT CODE/TIME: 03526 Gait 30 minutes beginning at 11:25
--- NOTE | 2023-02-20 18:45 | RT.EKG_ITS ---
APPROVED REPORT Exam: Resting ECG Reason for Exam: St depression Patient Location: I HR:62 bpm ECG Measurements Heart Rate 62 AXIS MI 57 P 0 QRSd 172 QRS 91 QT 463 T -7 QTc 471 Conclusion Sinus rhythm...normal P axis, V-rate 50- 99 Atrial premature complexes...SV complexes w/ short R-R intvls RBBB and LPFB...QRSd >120mS, axis(90,210) Anteroseptal infarct, age indeterminate...Q >35mS, T neg, V1-V2
[2023-02-20] MEDS: Enoxaparin 40 MG/0.4 ML SYR SC (21:24)
[2023-02-20] MEDS: hydrOXYzine HCL 25 MG TAB PO (21:24)
[2023-02-20] MEDS: Insulin Aspart 300 UNITS/3 ML PEN SC (21:28)
[2023-02-21] VITALS (10 sets, daily range): BP systolic 139–170; BP diastolic 61–88; PULSE 57–71; RESP 19–24; TEMP 36.1–37.1; O2SAT 95–97
[2023-02-21 06:32] LABS: Abs Immature Grans 0.06 10^3/uL (0.0-0.06); Absolute Basophil Count 0.02 10^3/uL (0.0-0.2); Absolute Eosinophil Count 0.36 10^3/uL (0.0-0.7); Absolute Lymphocyte Count 1.12 10^3/uL (1.2-3.4); Absolute Monocyte Count 1.33 10^3/uL (0.1-0.8); Absolute Neutrophil Count 5.93 10^3/uL (1.2-6.7); Basophils % 0.2; Eosinophils % 4.1; HCT 30.6 % (40.0-50.0); HGB 10.9 g/dL (13.5-17.5); Immature Grans % 0.7; Lymphocytes % 12.7; MCH 30.2 pg (27.0-33.0); MCHC 35.6 % (32.0-36.0); MCV 85 fL (80-95); MPV 11.1 fL (8.0-11.0); Monocytes % 15.1; Neutrophils % 67.2; Platelet Count 120 10^3/uL (130-400); RBC 3.61 10^6/uL (4.36-5.78); RDW 13.7 % (11.8-14.1); RDW-SD 42.8 fL; WBC 8.82 10^3/uL (4.4-10.8)
[2023-02-21 06:50] LABS: Anion Gap 7.3 mmol/L (3-11); C-Reactive Protein 19.42 mg/dL (0.0-0.3); CO2 27.7 mmol/L (21.0-32.0); CREATININE 2.6 mg/dL (0.70-1.30); Calcium 8.7 mg/dL (8.5-10.1); Chloride 92 mmol/L (98-107); Creatine Kinase 541 U/L (39-308); Estimated GFR 26.21 (mL/min/1.73m2); Glucose 104 mg/dL (74-106); Magnesium 2.1 mg/dL (1.8-2.4); Potassium 3.6 mmol/L (3.5-5.1); Sodium 127 mmol/L (136-145)
[2023-02-21 07:19] LABS: BUN 86 mg/dL (7-18); Vancomycin, Random 15.1 ug/mL
[2023-02-21 07:25] LABS: Procalcitonin 0.8 ng/mL
[2023-02-21] MEDS: Multivitamin TAB 1 TAB PO (09:08)
[2023-02-21] MEDS: Clopidogrel 75 MG TAB PO (09:08)
[2023-02-21] MEDS: Carvedilol 25 MG TAB PO ×2 (09:08→19:54)
[2023-02-21] MEDS: Aspirin E.C. 81 MG TABEC PO (09:09)
[2023-02-21] MEDS: Senna TAB 1 TAB PO ×2 (09:09→19:54)
[2023-02-21] MEDS: Normal Saline Flush 10 ML SYR IVP ×2 (09:15→22:58)
[2023-02-21] MEDS: DOXYCYCLINE 100 MG in Normal Saline 100 ML IVPB ×2 (11:02→21:21)
[2023-02-21] MEDS: Insulin Glargine 300 UNITS/3 ML PEN 70 UNITS SC ×2 (11:02→19:55)
[2023-02-21] MEDS: Furosemide 80 MG TAB PO (11:02)
[2023-02-21] MEDS: Pregabalin 50 MG CAP 150 MG PO ×2 (11:02→19:55)
[2023-02-21] MEDS: Insulin Aspart 300 UNITS/3 ML PEN SC ×5 (12:08→21:20)
[2023-02-21] MEDS: ceFAZolin 1 GM/50 ML BAG IVPB ×2 (12:28→19:54)
[2023-02-21] MEDS: Acetaminophen 325 MG TAB PO (12:32)
--- NOTE | 2023-02-21 12:52 | PT.INTREAT ---
Date of service: 02/21/23 Time of Service: 11:30 PT Notes Visit Reasons: Lyme's Disease,Elevated tropin,Sepsis Inpatient Physical Therapy Treatment Note [facility] Date: 02/21/23 PRECAUTIONS:Fall, standard, activity as tolerated SUBJECTIVE: Patient sitting up in chair, agreeable to therapy OBJECTIVE: PAIN: none reported GAIT Assistive Device: FWW Weight bearing: Full Assist: Standby Distance: 100 feet, rest, 100 feet Deviation: decreased [place] ASSESSMENT: patient tolerates therapy well, returns to chair PLAN: continue strengthening per plan of care TREATMENT CODE/TIME: 99211 Gait 32 minutes beginning at 11:30
--- NOTE | 2023-02-21 13:27 | W.PM.PROGNOT ---
Date of Service Date of service: 02/21/23 Time of Service: : Assessment and Plan Assessment and plan (1) Sepsis: Status: Acute Assessment and plan: W/ active Lyme disease as well as Staph Aureus / MSSA. Can now stop vancomycin and start cefazoline. Continue doxycycline for the treatment of Lyme disease. Obtain an echocardiogram. Repeat blood cultures collected on 02/20 are pending. Obtain MRI lower back to ensure no epidural abscess/septic discitis/osteomyelitis. (2) Staphylococcus aureus bacteremia: Status: Acute Assessment and plan: As above (3) Acute Lyme disease: Status: Acute Assessment and plan: With question of Lyme carditis based on evidence of new AV block. First degree block noted on initial EKG but now resolved. Doxycycline indicated if AV block is 1st degree. OK to d/c Rocephin. Clinically consistent with Lyme's. Cont doxycycline. Continue to monitor on tele. Diuresed on 02/20 d/t evidence of volume overload. Echo pending. Troponin elevation was mild and EKG is unchanged. Consider a cardiology consult. (4) Congestive heart failure: Assessment and plan: Is in fluid overload today. Diuresing, monitoring I/Os, daily weights. Obtain echo. Continue to monitor volume status. (5) Acute kidney injury superimposed on chronic kidney disease: Status: Acute Assessment and plan: In presence of rhabdo but also a large urinary volume in the baldder on US. CPK now significantly better. Repeat CPK in AM. Does have evidence of urinary retention by bladder scans on 02/20. . Prn straight caths with khanna placement if straight caths are required x3 have been ordered. (6) Elevated troponin: Status: Acute Assessment and plan: As above. More likely to be related to Lyme carditis given evidence of 1st degree AV block on EKG. Demand ischemia is also possible, but there is no evidence of true ACS. Endocarditis is also a possibility. For an echo on Thursday. Continue to monitor on tele. Already on asa, plavix, statin, coreg. (7) Coronary artery disease involving [place] coronary artery of [place] heart with unstable angina pectoris: Status: Chronic Assessment and plan: Continue LITZY, coreg, statin. Continue monitoring on Telemetry. (8) Diabetes mellitus type 2, insulin dependent: Status: Acute Assessment and plan: Continue basal bolus insulin. (9) Hypertension: Status: Chronic Assessment and plan: Continue carvedilol. Qualifiers: Hypertension type: essential hypertension Qualified Code(s): I10 - Essential (primary) hypertension (10) Hyperlipidemia: Status: Chronic Assessment and plan: Hold rosuvastatin given rhabdomyolysis Qualifiers: Hyperlipidemia type: unspecified Qualified Code(s): E78.5 - Hyperlipidemia, unspecified (11) Rhabdomyolysis: Status: Acute Assessment and plan: CPK now improved; check again in AM and then can likely stop monitoring. Dosage of diuretic now decreased. (12) DVT prophylaxis: Status: Acute Assessment and plan: SC enoxaparin (13) Discharge planning issues: Status: Acute Assessment and plan: Full Code. DVT prophylaxis with lovenox. Subjective Subjective Patient reports: no new complaints, tolerating a regular diet and afebrile; denies nausea, vomiting or shortness of breath Exam Narrative Exam Narrative: General: Pleasant and cooperative. Sitting in recliner. NAD. HEENT: EOMI, MMM, Sclera clear. Heart: RRR, S1S2, No murmur Lungs: crackles R base. L lower back with a bulls-eye lesion Abdomen: soft, rotund, nontender Extremities:+1 edema BLEs, no calf tenderness Objective Last Vital Signs Temp 37.1 C 02/21/23 10:18 Pulse 71 02/21/23 10:18 Resp 20 02/21/23 10:18 BP 153/83 H 02/21/23 10:27 Pulse Ox 97 02/21/23 10:18 Laboratory Results - last 24 hr 02/18/23 02/21/23 02/21/23 14:12 06:09 06:09 WBC RBC Hgb Hct MCV MCH MCHC RDW Plt Count MPV Immature Gran % Neutrophils % Lymphocytes % Monocytes % Eosinophils % Basophils % Nucleated RBC % Absolute Neutrophils Absolute Lymphocytes Absolute Monocytes Absolute Eosinophils Absolute Basophils Sodium 127 L Potassium 3.6 Chloride 92 L Carbon Dioxide 27.7 Anion Gap 7.3 BUN 86 H* Creatinine 2.6 H Est GFR (CKD-EPI 2020) 26.21 Glucose 104 Calcium 8.7 Magnesium 2.1 Creatine Kinase 541 H C-Reactive Protein 19.42 H Procalcitonin 0.8 Random Vancomycin 15.1 Lyme Disease Antibody Negative 02/21/23 06:09 WBC 8.82 RBC 3.61 L Hgb 10.9 L Hct 30.6 L MCV 85 MCH 30.2 MCHC 35.6 RDW 13.7 Plt Count 120 L MPV 11.1 H Immature Gran % 0.7 Neutrophils % 67.2 Lymphocytes % 12.7 Monocytes % 15.1 Eosinophils % 4.1 Basophils % 0.2 Nucleated RBC % 0.0 Absolute Neutrophils 5.93 Absolute Lymphocytes 1.12 L Absolute Monocytes 1.33 H Absolute Eosinophils 0.36 Absolute Basophils 0.02 Sodium Potassium Chloride Carbon Dioxide Anion Gap BUN Creatinine Est GFR (CKD-EPI 2020) Glucose Calcium Magnesium Creatine Kinase C-Reactive Protein Procalcitonin Random Vancomycin Lyme Disease Antibody PAWSS Have you Been Recently Intoxicated or Drunk Within the Last 30 days?: No Have you Ever Experienced Previous Episodes of Alcohol Withdrawal?: No Have you ever Experienced Withdrawal Seizures?: No Have you ever Experienced Delirium Tremens(DT)s?: No Have you ever undergone Alcohol Rehabilitation Treatment (i.e, inpt ot outpatient treatment programs)?: No Have you ever Experienced Blackouts?: No Have you ever Combined Alcohol with other Downers within the last 90 days?: No Have you ever Combined Alcohol with any other Substance of Abuse during the last 90 days?: No Positive Blood Alcohol level on Presentation? [PCS.BAL]: No Evidence of Increased Autonomic Activity (i.e. HR>120, tremor, sweating, agitation, nausea)?: No Result: 0 Time Spent with Patient Time Spent with Patient: 25-34 minutes Time was spent: preparing to see the patient(eg.review tests), obtaining and/or reviewing separately otained hiistory, ordering medications,tests, procedures, referring, communicating with other health point of care technician and indepentently interpreting results
[2023-02-21] MEDS: predniSONE 20 MG TAB 30 MG PO (16:05)
[2023-02-21 18:45] LABS: Anaplasma phagocytophilum Negative (Negative); B. miyamotoi PCR Negative (Negative); Babesia divergens/MO-1 Negative (Negative); Babesia duncani Negative (Negative); Babesia microti Negative (Negative); Ehrlichia chaffeensis Negative (Negative); Ehrlichia ewingii/canis Negative (Negative); Ehrlichia muris eauclairensis Negative (Negative)
[2023-02-21] MEDS: Rosuvastatin 10 MG TAB 40 MG PO (19:54)
[2023-02-21] MEDS: Enoxaparin 40 MG/0.4 ML SYR SC (21:21)
[2023-02-21] MEDS: hydrOXYzine HCL 25 MG TAB PO (21:21)
[2023-02-22] VITALS (10 sets, daily range): BP systolic 120–177; BP diastolic 60–85; PULSE 53–80; RESP 14–20; TEMP 35.9–36.6; O2SAT 92–98
--- NOTE | 2023-02-22 | DI.CT_ITS ---
Exam(s) CT LOWER EXTREMITY RT WO EXAM: CT LOWER EXTREMITY RT WO CLINICAL HISTORY: CT R foot - question of fluid collection/OM/absces. TECHNIQUE: Imaging Protocol: Axial computed tomography images with coronal and sagittal reformatted images were created and reviewed. CONTRAST MATERIAL: None COMPARISON: No exams were available for comparison FINDINGS: OSSEOUS: There has been amputation of the 1st-great toe. No obvious osteomyelitis at this stump leve l. There is diffuse soft tissue edema in the foot. There is no distinct abscess collection. There are multilevel degenerative changes in the tarsometatarsal joints. There is a fracture of the middle cuneiform evident and this fracture line extends to the articular surface of 2nd tarsometatarsal calin nt. SOFT TISSUES: There is diffuse soft tissue edema in the foot but no obvious abscess evident. IMPRESSION: First toe amputation. No obvious osteomyelitis and no evidence of obvious soft tissue abscess. Ther e is, however, diffuse soft tissue edema and cellulitis pattern. There is a of the middle cuneiform which extends to the articular surface of the 2nd tarsometatarsal joint. RADIATION DOSE DELIVERED: 280.22mGy.cm Total DLP DATA REPOSITORY: All CT scans at this facility are submitted to the National Radiology Data Registry (NRDR) Dose Index Registry (DIR) with the [employer] (A[employer]). RADIATION OPTIMIZATION: All CT scans at this facility use at least one of these dose optimization te chniques: automated exposure control; mA and/or kV adjustment per patient size (includes targeted exa ms where dose is matched to clinical indication); or iterative reconstruction.
[2023-02-22] MEDS: Polyethylene Glycol 3350 17 GM PACKET PO (01:59)
[2023-02-22 06:43] LABS: Anion Gap 10.5 mmol/L (3-11); CO2 28.5 mmol/L (21.0-32.0); CREATININE 2.3 mg/dL (0.70-1.30); Calcium 8.9 mg/dL (8.5-10.1); Chloride 95 mmol/L (98-107); Creatine Kinase 227 U/L (39-308); Estimated GFR 30.36 (mL/min/1.73m2); Glucose 189 mg/dL (74-106); Potassium 4.3 mmol/L (3.5-5.1); Sodium 134 mmol/L (136-145)
[2023-02-22 06:51] LABS: BUN 93 mg/dL (7-18)
[2023-02-22] MEDS: Aspirin E.C. 81 MG TABEC PO (07:56)
[2023-02-22] MEDS: Carvedilol 25 MG TAB PO ×2 (07:56→20:19)
[2023-02-22] MEDS: Pregabalin 50 MG CAP 150 MG PO ×2 (07:56→20:19)
[2023-02-22] MEDS: Clopidogrel 75 MG TAB PO (07:57)
[2023-02-22] MEDS: Senna TAB 1 TAB PO ×2 (07:57→20:21)
[2023-02-22] MEDS: Multivitamin TAB 1 TAB PO (07:57)
[2023-02-22] MEDS: Insulin Glargine 300 UNITS/3 ML PEN 70 UNITS SC ×2 (07:57→20:21)
[2023-02-22] MEDS: Insulin Aspart 300 UNITS/3 ML PEN SC ×6 (08:09→17:03)
[2023-02-22] MEDS: DOXYCYCLINE 100 MG in Normal Saline 100 ML IVPB ×2 (10:12→22:14)
[2023-02-22] MEDS: Furosemide 80 MG TAB PO ×2 (10:12→15:29)
[2023-02-22] MEDS: Normal Saline Flush 10 ML SYR IVP ×2 (10:13→20:23)
[2023-02-22] MEDS: ceFAZolin 1 GM/50 ML BAG IVPB ×2 (13:25→20:17)
--- NOTE | 2023-02-22 13:44 | PT.INTREAT ---
Date of service: 02/22/23 Time of Service: 11:40 PT Notes Visit Reasons: Lyme's Disease,Elevated tropin,Sepsis Inpatient Physical Therapy Treatment Note [facility] Date: 02/22/23 PRECAUTIONS: Fall, standard, activity as tolerated SUBJECTIVE: Patient sitting up in recliner, agreeable to therapy OBJECTIVE: PAIN: None reported initially, c/o back pain after walking for several minutes. BED MOBILITY/TRANSFERS Sit-stand: Standby Stand-sit: Standby Bed-Chair: Standby Chair-bed: Standby GAIT Assistive Device: FWW Weight bearing: Full Assist: Standby Distance: 225 feet Deviation: shortened step length, reduced step height, externally rotated feet/hips ASSESSMENT: Patient reports low back pain during ambulation. Reports this is longstanding, can only work outside for 10 minutes at a time at home before it begins to ache PLAN: continue strengthening and increasing activity tolerance per plan of care TREATMENT CODE/TIME: 05574 Gait 15 minutes beginning at 11:40
--- NOTE | 2023-02-22 16:11 | W.PM.PROGNOT ---
Date of Service Date of service: 02/22/23 Time of Service: 16:12 Assessment and Plan Assessment and plan (1) Sepsis: Status: Acute Assessment and plan: MSSA bacteremia and acute Lyme disease. Lyme disease is a clinical diagnosis given the history of the tick and the characteristic bull's eye rash. Repeat blood cultures 02/20/23 negative. Abx changed to cefazolin. Today is day 3 of abx therapy. Continue doxycyclin. Await echocardiogram (not available until 02/24/23). MRI lower back is negative. However, we will investigate his R diabetic foot infection with a CT this weekend and obtain a podiatry consult (if available). Will likely require an MRI. (2) Staphylococcus aureus bacteremia: Status: Acute Assessment and plan: As above (3) Diabetic foot infection: Status: Acute Assessment and plan: As above (4) Acute Lyme disease: Status: Acute Assessment and plan: With question of Lyme carditis. Continue doxycycline. Continue to monitor on tele. Echo pending. Troponin elevation was mild and EKG is unchanged. Consider a cardiology consult. (5) Congestive heart failure: Assessment and plan: Remains fluid overloaded and symptomatic. Convert to IV furosemide 60 mg IV BID. Continue monitoring Cr, I/Os, daily weights. Await echo. Continue to monitor volume status. (6) Acute kidney injury superimposed on chronic kidney disease: Status: Acute Assessment and plan: In presence of rhabdo but also a large urinary volume in the baldder on US. Rhabdomyolysis has resolved. Does have evidence of urinary retention by bladder scans on 02/20. . Prn straight caths Monitor Cr as diuresis has been intensified. (7) Elevated troponin: Status: Acute Assessment and plan: As above. More likely to be related to Lyme carditis given evidence of 1st degree AV block on EKG. Demand ischemia is also possible, but there is no evidence of true ACS. Finally, rhabdomyolysis can also result in an elevated troponin. Endocarditis is also a possibility. Await echo on Thursday. Continue to monitor on tele. Already on asa, plavix, statin, coreg. (8) Coronary artery disease involving [place] coronary artery of [place] heart with unstable angina pectoris: Status: Chronic Assessment and plan: Continue LITZY, coreg, statin. Continue monitoring on Telemetry. (9) Diabetes mellitus type 2, insulin dependent: Status: Acute Assessment and plan: Continue basal bolus insulin. (10) Hypertension: Status: Chronic Assessment and plan: Continue carvedilol. Qualifiers: Hypertension type: essential hypertension Qualified Code(s): I10 - Essential (primary) hypertension (11) Hyperlipidemia: Status: Chronic Assessment and plan: Consider resumption of rosuvastatin since rhabdomyolysis has resolved. Qualifiers: Hyperlipidemia type: unspecified Qualified Code(s): E78.5 - Hyperlipidemia, unspecified (12) Rhabdomyolysis: Status: Resolved (13) DVT prophylaxis: Status: Acute Assessment and plan: SC enoxaparin (14) Discharge planning issues: Status: Acute Assessment and plan: Full Code. Continues to require hospitalization. Subjective Subjective Interval history since last seen: Mr Melara states that he was short of breath last night. Reports nonproductive cough. He thinks it has to do with fluid overload. Denies dizziness, chest pain, nausea. Reports postnasal drip. Wants me to take a look at his right foot where he is concerned he has an infection - he states, his didn't see the spots there before. Exam Narrative Exam Narrative: General: Pleasant obese male who is A&Ox3, looks better, sitting up in a recliner HEENT: EOMI, MMM Heart: RRR, no m/r/g Lungs: Faint crackles at B bases. Abdomen: soft, rotund, nontender Extremities:+2 edema BLEs, R foot s/p amputation 1st digit. Erythema over his MTP stump with several areas of discoloration of the plantar surface of the stump, ?abscesses Objective Last Vital Signs Temp 35.9 C L 02/22/23 15:03 Pulse 80 02/22/23 15:03 Resp 14 02/22/23 15:03 BP 168/69 H 02/22/23 15:03 Pulse Ox 95 02/22/23 15:03 Laboratory Results - last 24 hr 02/18/23 02/22/23 02/22/23 14:12 06:01 11:00 Sodium 134 L Potassium 4.3 Chloride 95 L Carbon Dioxide 28.5 Anion Gap 10.5 BUN 93 H* Creatinine 2.3 H Est GFR (CKD-EPI 2020) 30.36 Glucose 189 H Calcium 8.9 Creatine Kinase 227 Vancomycin Trough Cancelled B. divergens/MO-1 PCR Negative Babesia duncani (PCR) Negative Babesia microti DNA PCR Negative E.chaffeensis DNA (PCR) Negative E.ewingii/canis DNA PCR Negative E.muris eauclairensis (PCR) Negative A. phagocytophilum (PCR) Negative Blood B. miyamotoi (PCR) Negative PAWSS Have you Been Recently Intoxicated or Drunk Within the Last 30 days?: No Have you Ever Experienced Previous Episodes of Alcohol Withdrawal?: No Have you ever Experienced Withdrawal Seizures?: No Have you ever Experienced Delirium Tremens(DT)s?: No Have you ever undergone Alcohol Rehabilitation Treatment (i.e, inpt ot outpatient treatment programs)?: No Have you ever Experienced Blackouts?: No Have you ever Combined Alcohol with other Downers within the last 90 days?: No Have you ever Combined Alcohol with any other Substance of Abuse during the last 90 days?: No Positive Blood Alcohol level on Presentation? [PCS.BAL]: No Evidence of Increased Autonomic Activity (i.e. HR>120, tremor, sweating, agitation, nausea)?: No Result: 0 Time Spent with Patient Time Spent with Patient: 35-49 minutes Time was spent: preparing to see the patient(eg.review tests), obtaining and/or reviewing separately otained hiistory, ordering medications,tests, procedures, referring, communicating with other health care management coordinator, indepentently interpreting results, counseling the patient and care coordination
--- NOTE | 2023-02-22 16:52 | DI.VRAD_ITS ---
PROCEDURE INFORMATION: Exam: CT Right Lower Extremity Without Contrast, Foot Exam date and time: 02/22/2023 4:39 PM Age: 68 years old Clinical indication: Other: Question of fluid collection/om/abscess TECHNIQUE: Imaging protocol: CT of the right lower extremity without contrast was performed. Exam focused on the foot. COMPARISON: MR LOWER EXTREMITY RT WO/W 10/17/2019 12:29 PM FINDINGS: Bones/joints: Comminuted mildly displaced fracture of the middle cuneiform extending to the 2nd TMT joint. Amputation of the 1st toe through the distal shaft of the metatarsal. Heterotopic ossification in the soft tissues in the medial aspect of the stump of the 1st toe. Chondrocalcinosis in the ankle mortise, in the middle subtalar joint. Mild degenerative arthritis in the TMT joints. Soft tissues: Diffuse soft tissue edema prominent cellulitis ankle and foot. The. Plantar and Achilles calcaneal spurs. Calcifications in the tarsal sinus and in the deep fibers of the deltoid ligament. Vasculature: Vascular calcifications. Other findings: The images are degraded by motion. IMPRESSION: 1. Comminuted mildly displaced intra-articular fracture of the middle cuneiform extending to the 2nd TMT joint 2. 1st toe amputation 3. Diffuse soft tissue edema and cellulitis without fluid collection Dictated and Authenticated by: Renee Gibbs MD. Ordering:GINA Rodrigues MD
[2023-02-22] MEDS: Furosemide 40 MG/4 ML VIAL IVP (17:02)
[2023-02-22] MEDS: Rosuvastatin 10 MG TAB 40 MG PO (20:19)
[2023-02-22] MEDS: hydrOXYzine HCL 25 MG TAB PO (22:14)
[2023-02-22] MEDS: Enoxaparin 40 MG/0.4 ML SYR SC (22:16)
[2023-02-23] VITALS (10 sets, daily range): BP systolic 152–226; BP diastolic 68–95; PULSE 46–64; RESP 14–18; TEMP 35.5–37.3; O2SAT 95–99
[2023-02-23] MEDS: ceFAZolin 1 GM/50 ML BAG IVPB ×3 (04:24→20:58)
[2023-02-23] MEDS: Normal Saline Flush 10 ML SYR IVP ×2 (04:26→20:59)
[2023-02-23 06:40] LABS: Abs Immature Grans 0.09 10^3/uL (0.0-0.06); Absolute Basophil Count 0.04 10^3/uL (0.0-0.2); Absolute Eosinophil Count 0.19 10^3/uL (0.0-0.7); Absolute Lymphocyte Count 1.02 10^3/uL (1.2-3.4); Absolute Monocyte Count 1.16 10^3/uL (0.1-0.8); Absolute Neutrophil Count 6.38 10^3/uL (1.2-6.7); Basophils % 0.5; Eosinophils % 2.1; HCT 31.2 % (40.0-50.0); HGB 10.7 g/dL (13.5-17.5); Lymphocytes % 11.5; MCH 29.8 pg (27.0-33.0); MCHC 34.3 % (32.0-36.0); MCV 87 fL (80-95); MPV 10.8 fL (8.0-11.0); Monocytes % 13.1; Neutrophils % 71.8; Platelet Count 156 10^3/uL (130-400); RBC 3.59 10^6/uL (4.36-5.78); RDW 13.8 % (11.8-14.1); RDW-SD 43.9 fL; WBC 8.88 10^3/uL (4.4-10.8)
[2023-02-23 07:04] LABS: Anion Gap 10.9 mmol/L (3-11); C-Reactive Protein 13.03 mg/dL (0.0-0.3); CO2 30.1 mmol/L (21.0-32.0); CREATININE 2.3 mg/dL (0.70-1.30); Chloride 97 mmol/L (98-107); Estimated GFR 30.36 (mL/min/1.73m2); Glucose 105 mg/dL (74-106); Magnesium 2.3 mg/dL (1.8-2.4); Potassium 3.9 mmol/L (3.5-5.1); Sodium 138 mmol/L (136-145)
[2023-02-23 07:13] LABS: Procalcitonin 0.3 ng/mL
[2023-02-23 07:26] LABS: BUN 100 mg/dL (7-18)
[2023-02-23] MEDS: Furosemide 100 MG/10 ML VIAL 60 MG IVP ×2 (08:52→16:04)
[2023-02-23] MEDS: Insulin Glargine 300 UNITS/3 ML PEN 50 UNITS SC ×2 (08:53→21:01)
[2023-02-23] MEDS: Senna TAB 1 TAB PO ×2 (08:53→21:00)
[2023-02-23] MEDS: Multivitamin TAB 1 TAB PO (08:53)
[2023-02-23] MEDS: Clopidogrel 75 MG TAB PO (08:53)
[2023-02-23] MEDS: Pregabalin 50 MG CAP 150 MG PO ×2 (08:53→20:59)
[2023-02-23] MEDS: Aspirin E.C. 81 MG TABEC PO (08:53)
[2023-02-23] MEDS: Insulin Aspart 300 UNITS/3 ML PEN SC ×6 (08:54→17:13)
[2023-02-23] MEDS: DOXYCYCLINE 100 MG in Normal Saline 100 ML IVPB ×2 (09:10→22:10)
[2023-02-23] MEDS: Docusate Sodium 100 MG CAP PO ×2 (10:27→20:59)
[2023-02-23] MEDS: Bisacodyl 5 MG TABEC PO ×2 (10:27→16:04)
--- NOTE | 2023-02-23 14:41 | PGE_ITS ---
Date of Service Date of service: 02/23/23 Time of Service: 14:41 Assessment and Plan Assessment and plan (1) Sepsis: Status: Acute Assessment and plan: Due to MSSA bacteremia and acute Lyme disease. Lyme disease is a clinical diagnosis given the history of the tick and the characteristic bull's eye rash. Repeat blood cultures 02/20/23 negative. Continue cefazolin (day 4). Continue doxycyclin. Await echocardiogram (not available until 02/24/23). MRI lower back is negative. Obtain MRI BLE as discussed with Dr Espinal. Podiatry is not available at our facility. (2) Staphylococcus aureus bacteremia: Status: Acute Assessment and plan: As above (3) Diabetic foot infection: Status: Acute Assessment and plan: As above (4) Acute Lyme disease: Status: Acute Assessment and plan: With question of Lyme carditis. Continue doxycycline. Continue to monitor on tele. Echo pending. Troponin elevation was mild and EKG is unchanged. Consider a cardiology consult. (5) Congestive heart failure: Assessment and plan: Remains fluid overloaded and symptomatic. Continue IV furosemide 60 mg IV BID. Continue monitoring Cr, I/Os, daily weights. Await echo. Continue to monitor volume status. (6) Acute kidney injury superimposed on chronic kidney disease: Status: Acute Assessment and plan: In presence of rhabdo but also a large urinary volume in the baldder on US. Rhabdomyolysis has resolved. Improved. Continue diuresis. Does have evidence of urinary retention by bladder scans on 02/20. . Prn straight caths Monitor Cr as diuresis has been intensified. (7) Elevated troponin: Status: Acute Assessment and plan: As above. More likely to be related to Lyme carditis given evidence of 1st degree AV block on EKG. Demand ischemia is also possible, but there is no evidence of true ACS. Finally, rhabdomyolysis can also result in an elevated troponin. Endocarditis is also a possibility. Await echo Tomorrow. Continue to monitor on tele. Already on asa, plavix, statin, coreg. (8) Coronary artery disease involving [place] coronary artery of [place] heart with unstable angina pectoris: Status: Chronic Assessment and plan: Continue LITZY, coreg, statin. Continue monitoring on Telemetry. (9) Diabetes mellitus type 2, insulin dependent: Status: Acute Assessment and plan: With hypoglycemia last night. Suspect improved insulin sensitivity given treatment of infection and better control of his diet here. Continue basal bolus insulin, but decrease basal insulin and institute carb coverage. (10) Hypertension: Status: Chronic Assessment and plan: Continue carvedilol with holding parameters. Qualifiers: Hypertension type: essential hypertension Qualified Code(s): I10 - Essential (primary) hypertension (11) Hyperlipidemia: Status: Chronic Assessment and plan: Rosuvastatin resumed Qualifiers: Hyperlipidemia type: unspecified Qualified Code(s): E78.5 - Hyperlipidemia, unspecified (12) Rhabdomyolysis: Status: Resolved (13) DVT prophylaxis: Status: Acute Assessment and plan: SC enoxaparin (14) Discharge planning issues: Status: Acute Assessment and plan: Full Code. Continues to require hospitalization. Subjective Subjective Interval history since last seen: Mr Melara was hypoglycemic to 40s - 50s overnight. He did not get the night time 40 units of aspart that nursing had reported he had stated he took, but he became hypoglycemic anyway. Today, he states that he does not take the 40 units of aspart at night. He is worried about his right foot. We discussed how podiatry is not available at [facility] at this time. He has poor sensation in his B feet. Discussed that he would be seen by a surgeon and would need an MRI tomorrow. Denies dizziness, CP, states SOB was not great last night but is getting better, denies n/v. He has never had a sleep study. Denies snoring or stopping breathing - his confirms this. We discussed how he should still get a sleep study as outpatient given the leg edema. Exam Narrative Exam Narrative: General: Pleasant obese male who is A&Ox3, looks better, sitting up in a recliner HEENT: EOMI, MMM Heart: RRR, no m/r/g Lungs: CTAB Abdomen: soft, rotund, nontender Extremities:+2 edema BLEs, not significantly different; R foot s/p amputation 1st digit. Erythema over his MTP stump with three areas of discoloration of the plantar surface of the stump, ?abscesses. Objective Last Vital Signs Temp 36.6 C 02/23/23 12:47 Pulse 58 L 02/23/23 11:18 Resp 18 02/23/23 11:18 BP 175/68 H 02/23/23 11:18 Pulse Ox 95 02/23/23 11:18 Laboratory Results - last 24 hr 02/23/23 02/23/23 02/23/23 06:04 06:04 06:04 WBC 8.88 RBC 3.59 L Hgb 10.7 L Hct 31.2 L MCV 87 MCH 29.8 MCHC 34.3 RDW 13.8 Plt Count 156 MPV 10.8 Immature Gran % 1.0 Neutrophils % 71.8 Lymphocytes % 11.5 Monocytes % 13.1 Eosinophils % 2.1 Basophils % 0.5 Nucleated RBC % 0.0 Absolute Neutrophils 6.38 Absolute Lymphocytes 1.02 L Absolute Monocytes 1.16 H Absolute Eosinophils 0.19 Absolute Basophils 0.04 Sodium 138 Potassium 3.9 Chloride 97 L Carbon Dioxide 30.1 Anion Gap 10.9 BUN 100 H* Creatinine 2.3 H Est GFR (CKD-EPI 2020) 30.36 Glucose 105 Calcium 9.0 Magnesium 2.3 C-Reactive Protein 13.03 H Procalcitonin 0.3 Objective Narrative Objective Narrative: CT RLE w/o contrast: First toe amputation.? No obvious osteomyelitis and no evidence of obvious soft tissue abscess.? There is, however, diffuse soft tissue edema and cellulitis pattern.? There is a of the middle cuneiform which extends to the articular surface of the 2nd tarsometatarsal joint. PAWSS Have you Been Recently Intoxicated or Drunk Within the Last 30 days?: No Have you Ever Experienced Previous Episodes of Alcohol Withdrawal?: No Have you ever Experienced Withdrawal Seizures?: No Have you ever Experienced Delirium Tremens(DT)s?: No Have you ever undergone Alcohol Rehabilitation Treatment (i.e, inpt ot outpatient treatment programs)?: No Have you ever Experienced Blackouts?: No Have you ever Combined Alcohol with other Downers within the last 90 days?: No Have you ever Combined Alcohol with any other Substance of Abuse during the last 90 days?: No Positive Blood Alcohol level on Presentation? [PCS.BAL]: No Evidence of Increased Autonomic Activity (i.e. HR>120, tremor, sweating, agitation, nausea)?: No Result: 0 Time Spent with Patient Time Spent with Patient: 35-49 minutes Time was spent: preparing to see the patient(eg.review tests), obtaining and/or reviewing separately otained hiistory, ordering medications,tests, procedures, referring, communicating with other health adult daycare coordinator, indepentently interpreting results, counseling the patient and care coordination
--- NOTE | 2023-02-23 15:08 | PT.INTREAT ---
Date of service: 02/23/23 Time of Service: 11:52 PT Notes Visit Reasons: Lyme's Disease,Elevated tropin,Sepsis Inpatient Physical Therapy Treatment Note [facility] Date: 02/23/23 PRECAUTIONS: Standard, activity as tolerated SUBJECTIVE: Patient reports feeling ok, sitting up in chair, agreeable to therapy. OBJECTIVE: PAIN: no pain when seated, pain in foot upon standing, pain in back after several minutes of ambulation. BED MOBILITY/TRANSFERS Sit-stand: Standby Stand-sit: Standby Bed-Chair: Standby Chair-bed: Standby GAIT Assistive Device: Front wheeled walker Weight bearing: full Assist: Standby Distance: 50 feet, seated rest, 50 feet Deviation: step height decreased, step length significantly decreased, patient complains of back and foot pain during first walk, reports second length is easier as the foot pain recedes after he's been moving for a bit. THEREX: Seated LE strengthening including heel raises, toe raises, marching, long arc quads, sit to stands ASSESSMENT: Patient tolerates therapy well PLAN: continue strengthening per plan of care TREATMENT CODE/TIME: [id number] Gait 15 minutes [id number] TherEx 10 minutes beginning at 1400
--- NOTE | 2023-02-23 15:52 | W.SURGCON ---
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: (4) Lymphedema: (5) Obesity: (6) Proliferative diabetic retinopathy of both eyes without macular edema associated with diabetes mellitus due to underlying condition: (7) Stroke: (8) Elevated troponin: Status: Acute (9) Acute Lyme disease: Status: Acute (10) Peripheral arterial disease: Status: Acute (11) Diabetes mellitus type 2, insulin dependent: Status: Acute (12) Chronic kidney disease (CKD): Status: Chronic (13) Diabetic peripheral neuropathy: Status: Chronic (14) Hypertension: Status: Chronic Qualifiers: Hypertension type: essential hypertension Qualified Code(s): I10 - Essential (primary) hypertension (15) Chronic pain syndrome: Status: Chronic (16) Coronary artery disease involving [place] coronary artery of [place] heart with unstable angina pectoris: Status: Chronic (17) Peripheral autonomic neuropathy in disorders classified elsewhere: Status: Chronic (18) Hyperlipidemia: Status: Chronic Qualifiers: Hyperlipidemia type: unspecified Qualified Code(s): E78.5 - Hyperlipidemia, unspecified (19) S/P femoral-popliteal bypass surgery: (20) Gouty arthritis of hand: Status: Acute (21) Toe osteomyelitis, right: (22) Nail dystrophy: Status: Acute (23) Chronic acquired lymphedema: Status: Acute (24) Chronic venous stasis dermatitis: Status: Acute (25) Chronic venous insufficiency of lower extremity: Status: Acute (26) Gram-positive cocci bacteremia: Status: Acute (27) Acute kidney injury superimposed on chronic kidney disease: Status: Acute (28) Elevated troponin: Status: Acute (29) Erythema migrans (Lyme disease): Status: Acute (30) Chronic foot ulcer: Status: Acute (31) Cellulitis: Status: Acute (32) Diabetic foot infection: Status: Acute (33) Diabetic ulcer of toe of left foot: Status: Acute Assessment and plan: cont doxy and cephazolin MRI of b/l feet/ankles in am tight control DM BRYCE's -will d/w cunneiform fx w/ ortho. high prob of need for forefoot amp/Symes. This document was created with voice activated software and may contain errors. 90 mins spent in counseltation today (34) Diabetic ulcer of right foot associated with diabetes mellitus due to underlying condition: Status: Acute (35) Chronic diabetic ulcer of right foot determined by examination: Status: Acute History of Present Illness Narrative: -From admitting H&P This is a 68 yo male with a PMH of DM2 insulin requiring, PAD, gout of multiple joints, morbid obesity, CKD, CHF, HTN, CAD/previous by-pass grafting, HLD, peripheral neuropathy.? He presented to the ED with c/o shaking/chills and feeling weak.? He states he has felt like this before with cellulitis.? A tick was found on his back on Thursday, and a targetoid rash developed on day of admission. No WORKMAN.? + bodyaches different than his usual related to gout.? No CP/palpitations. Vital Signs Temperature ?37.5 C ?02/18/23 13:45 Pulse ?82 ?02/18/23 13:45 Respiratory Rate ?20 ?02/18/23 13:45 Blood Pressure ?157/105 H ?02/18/23 13:45 Pulse Oximetry ?94 ?02/18/23 13:45 ?WBC count 10.59. vbg lactate 2.3. Na 137. K 3.9. Creatinine 2.0.? BUN 58. Glucose 217. Mg 1.7. AST and ALT normal.? Troponin 67 > 98 > 188. CXR:? no acute findings.? CT head: no acute findings. Initially given a dose of IV doxycycline and the changed to rocephin 2gm IV [id number], in the ED. Cardiology [facility] [place] doc.? They did not recommend emergent transfer.? If a significant block developed then speak with them again.? Currently with 1st degree AV block -He was also found to have as a bacteremia in 2 out of 2 bottles from blood cultures done on 02/18. See [employer] in [employer]. Repeat blood cultures on have been negative x2 up to 72 hours. ABx currently: -Doxycycline started 02/19. And currently ongoing -Cefazolin started 02/21 and currently ongoing -We are asked to see him today , regarding diabetic foot ulcers. The left foot: He has a chronic draining sinus of the medial aspect of the distal phalanges of the left great toe. He has been seeing podiatry for over a year for this. There is a significant amount of callus over the area. There is a 1 mm sinus. This does not probed today. There is no redness. There is no active drainage today. Patient states it ranges from serous to purulent. The left lower extremity also has signs of chronic venous stasis and stasis dermatitis and probable venous insufficiency. The right foot: He has had a previous right great toe amputation in 2019 for pseudomonal osteomyelitis.. The incisions are healed. In the incision bed over the head of the first metatarsal. He is noted to have also bilateral chronic lymphedema of the right lower extremity. There are no other open areas he also has or ulcerations. He complains of pain in the right heel. Venous stasis dermatitis and probably chronic venous insufficiency of the right lower extremity T there are 3 whitish raised callused areas in the bed of the previous healed amputation. There is no associated drainage. Patient states these are new. He has neuropathy and limited feeling of his lower extremities. -He does have extensive history of PAD. He is diabetic, his last A1c was 7. He does not have a history of poor control. He does have a history of obesity and atherosclerosis. There is no recent BRYCE on his chart. He had his last angiogram in 2019. He did have a femoropopliteal on the right side. -Right-sided CT foot showed diffuse edema consistent with cellulitis. It also showed a fracture of the middle cuneiform that it extends to the second tarsometatarsal joint. Patient is also complaining of pain in the right ankle. -Patient does have diabetic orthotics at home that were fashioned by podiatry. He also has diabetic shoes. He also has compression garments for his lower extremities due to his chronic lymphedema. -Last podiatry evaluation 01/21/2023 Full-thickness ulceration, through skin and subcutaneous tissue, left hallucal IPJ, with extensive surrounding hyperkeratotic skin and undermining. Predebridement measurements 4 mm x 1 mm with a depth of 2 mm with minimal undermining.? Post debridement measurements 4 mm x 1 mm x 1 mm.? Moderate drainage is noted on the dressing. No probe to bone is present today with no exposed capsule or tendon or ligament.? The wound base is granular with 60% necrotic / slough tissue Notes from [facility] vascular are reviewed as well. Review of Systems All systems reviewed & are unremarkable except as noted in HPI and below Constitutional Comments: Currently no fevers or chills. He complains of pain from his hands. He is multiple, large, tophaceous deposits on the joints of his hands bilateral No diarrhea from the antibiotics. [facility] All Active Problems (Updated 02/23/23 @ 17:58 by Brenda Espinal DO) Chronic diabetic ulcer of right foot determined by examination (Acute) Diabetic ulcer of right foot associated with diabetes mellitus due to underlying condition (Acute) Diabetic ulcer of toe of left foot (Acute) Chronic venous insufficiency of lower extremity (Acute) Bilateral lower extremities Chronic venous stasis dermatitis (Acute) Bilateral lower extremities Chronic acquired lymphedema (Acute) Bilateral lower extremities Gouty arthritis of hand (Acute) Staphylococcus aureus bacteremia (Acute) DVT prophylaxis (Acute) Acute kidney injury superimposed on chronic kidney disease (Acute) Gram-positive cocci bacteremia (Acute) Sepsis (Acute) Elevated troponin (Acute) SIRS (systemic inflammatory response syndrome) (Acute) Erythema migrans (Lyme disease) (Acute) Discharge planning issues (Acute) Elevated troponin (Acute) Acute Lyme disease (Acute) Peripheral arterial disease (Acute) Nail dystrophy (Acute) Chronic foot ulcer (Acute) Hyperkalemia (Acute 07/26/14) Cellulitis (Acute) Diabetic foot infection (Acute) Leg wound, left (Acute) Diabetic retinopathy (Acute ~12/2021) B/L MODERATE-01/17 Edema (Acute) Gout (Chronic) 08/2021-diagnosed by rheumatology at [facility]-probable gout tophi of hands Obesity (Chronic) Diabetes mellitus type 2, insulin dependent (Acute) with nephropathy Chronic kidney disease (CKD) (Chronic) 08/2021- Cr 1.7 Hand arthritis (Acute) Amputation of toe (Acute) Cellulitis of foot, right (Acute) Diabetes mellitus type 2, insulin dependent (Acute) Right heart failure (Acute) Diabetic peripheral neuropathy (Chronic) Diabetic peripheral angiopathy (Chronic) Hypertension (Chronic) Chronic pain syndrome (Chronic) low back pain, drug contract at [facility]-V PMS and drug screen on 08/1221-patient on chronic hydrocodone Coronary artery disease involving [place] coronary artery of [place] heart with unstable angina pectoris (Chronic 08/30/17) 08-24-2017 [facility] cardiac CATH: 3 vessel disease (LAD,LCx and RCA): coronary bypass sx pending Dyspnea on exertion (Chronic 12/16/13) negative nuclear stress test echocardiogram: normal/ EF 65%/no valvulopathy Cardiol.eval. 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 S/p hydrocelectomy 07/24/14 Stroke (~2008) TIA (transient ischemic attack) Toe osteomyelitis, right s/p amputation. 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 Hydrocelectomy 07/24/2014 History of cataract removal with insertion of prosthetic lens History of hydrocelectomy (07/24/14) right S/P CABG x 3 (08/30/17[place] [facility] [place] : no fup needed S/P femoral-popliteal bypass surgery right. 03/2020 Family History Mother No problems noted. Father Diabetes Myocardial infarction Heart disease Sister Diabetes Social History Smoking/Tobacco Use Status: Former Tobacco Use Quit Date: 09/28/83 Tobacco: How many years used: 5 Smoking risk assessment performed?: Yes Alcohol Intake: current Alcohol Intake frequency: holidays/special occasions only Drug use: Occasionally Substance use type: marijuana Pets and animals: Yes Pets and animals: cat(s) and dog(s) What type of physical activity do you participate in: none Do you feel safe at home: Yes Do you feel safe in your relationship?: Yes Exam Narrative Exam Narrative: 6 see HPI Results Last Vital Signs Temp 36.6 C 02/23/23 12:47 Pulse 64 02/23/23 15:00 Resp 18 02/23/23 11:18 BP 175/68 H 02/23/23 11:18 Pulse Ox 95 02/23/23 11:18 Labs 02/23/23 06:04 02/23/23 06:04 Labs: Laboratory Results - last 24 hr 02/23/23 02/23/23 02/23/23 06:04 06:04 06:04 WBC 8.88 RBC 3.59 L Hgb 10.7 L Hct 31.2 L MCV 87 MCH 29.8 MCHC 34.3 RDW 13.8 Plt Count 156 MPV 10.8 Immature Gran % 1.0 Neutrophils % 71.8 Lymphocytes % 11.5 Monocytes % 13.1 Eosinophils % 2.1 Basophils % 0.5 Nucleated RBC % 0.0 Absolute Neutrophils 6.38 Absolute Lymphocytes 1.02 L Absolute Monocytes 1.16 H Absolute Eosinophils 0.19 Absolute Basophils 0.04 Sodium 138 Potassium 3.9 Chloride 97 L Carbon Dioxide 30.1 Anion Gap 10.9 BUN 100 H* Creatinine 2.3 H Est GFR (CKD-EPI 2020) 30.36 Glucose 105 Calcium 9.0 Magnesium 2.3 C-Reactive Protein 13.03 H Procalcitonin 0.3
[2023-02-23] MEDS: Carvedilol 25 MG TAB PO (21:00)
[2023-02-23] MEDS: Rosuvastatin 10 MG TAB 40 MG PO (21:00)
[2023-02-23] MEDS: Enoxaparin 40 MG/0.4 ML SYR SC (22:09)
[2023-02-23] MEDS: hydrOXYzine HCL 25 MG TAB PO (22:10)
[2023-02-24] VITALS (7 sets, daily range): BP systolic 140–166; BP diastolic 68–84; PULSE 54–67; RESP 18–22; TEMP 36.2–36.8; O2SAT 93–98
--- NOTE | 2023-02-24 | DI.RAD_ITS ---
Exam(s) XR FOOT RT COMPLETE EXAM: XR FOOT RT COMPLETE CLINICAL HISTORY: MSSA bacteremia, diabetic foot infection. TECHNIQUE: 2D digital imaging was performed. COMPARISON: MR MR LOWER EXTREMITY RT WO/W from 10/17/2019 There are no prior plain films of this foot in our PACS FINDINGS: 3 views There is soft tissue swelling over the distal half of the foot, both dorsally and volar aspect. There has been amputation of the 1st-great toe at the mid metatarsal level. No radiographic evidence of osteomyelitis at this level. There is a deformity at the neck of the 5th metatarsal which is mos t probably posttraumatic-healed fracture site. There is some increased density noted throughout the length of the 4th and 5th metatarsals are possibly significant. Phalanges of the 2nd, 3rd, 4th, and 5th toes appear intact. No erosions. IMPRESSION: Multilevel findings as above. Soft tissue swelling but no obvious radiographic evidence of osteomyel itis. If clinically indicated follow-up MRI can be performed. DATA REPOSITORY: RADIATION DOSE DELIVERED:
--- NOTE | 2023-02-24 | DI.RAD_ITS ---
Exam(s) XR FOOT LT COMPLETE EXAM: XR FOOT LT COMPLETE CLINICAL HISTORY: MSSA bacteremia, diabetic foot infection. TECHNIQUE: 2D digital imaging was performed. COMPARISON: CR XR TOE LT GREAT from 08/27/2022 FINDINGS: 3 views There is soft tissue swelling in the distal half of the foot, similar to the opposite side, this swel ling noted both dorsally and on the plantar aspect of the foot. No obvious skin ulcer nor tract. The amputation stump of the 5th metatarsal appears sharp and withou t erosion. No fractures evident. Phalanges of the 1st through 4th toes appear intact. Remaining MT P joints appear unremarkable. No erosions. Mild increased density noted throughout the length of th e 4th metatarsal and remaining 5th metatarsal, possibly significant. IMPRESSION: Findings as above but without obvious evidence of osteomyelitis. If clinically indicated follow-up M RI can be performed. DATA REPOSITORY: RADIATION DOSE DELIVERED:
--- NOTE | 2023-02-24 01:52 | NUR.NOTE ---
@ 0420 on 02/23/23, pt was found diaphoretic and drowsy; pt was AAOX4 - fingerstick (blood glucose) taken and was 50. 2 glasses OJ, peanut butter, sammi cracker, and wheat toast given and Charge nurse made aware. Repeat fingerstick 20 mins later was 62; this RN offered pt oral glucose gel but pt refused saying I'm feeling better. Gave pt another cup of OJ sweetened with 6 packets of sugar and rechecked fingerstick 30 mins later, blood glucose was 106. Pt remained AAOX4 but very drowsy, and denies any dizziness, N/V, or any palpitations, assisted pt with gown changing - sweating subsided. Nursing Note:
[2023-02-24] MEDS: ceFAZolin 1 GM/50 ML BAG IVPB ×2 (03:52→12:52)
[2023-02-24] MEDS: Normal Saline Flush 10 ML SYR IVP ×2 (03:53→21:52)
[2023-02-24 06:41] LABS: Abs Immature Grans 0.12 10^3/uL (0.0-0.06); Absolute Basophil Count 0.07 10^3/uL (0.0-0.2); Absolute Eosinophil Count 0.26 10^3/uL (0.0-0.7); Absolute Lymphocyte Count 1.47 10^3/uL (1.2-3.4); Absolute Neutrophil Count 6.44 10^3/uL (1.2-6.7); Basophils % 0.7; Eosinophils % 2.7; HCT 30.7 % (40.0-50.0); HGB 10.7 g/dL (13.5-17.5); Immature Grans % 1.3; Lymphocytes % 15.4; MCH 30.6 pg (27.0-33.0); MCHC 34.9 % (32.0-36.0); MCV 88 fL (80-95); MPV 10.3 fL (8.0-11.0); Monocytes % 12.6; Neutrophils % 67.3; Platelet Count 172 10^3/uL (130-400); RDW-SD 44.2 fL; WBC 9.56 10^3/uL (4.4-10.8)
[2023-02-24 07:00] LABS: Anion Gap 9.6 mmol/L (3-11); C-Reactive Protein 8.72 mg/dL (0.0-0.3); CO2 30.4 mmol/L (21.0-32.0); CREATININE 2.2 mg/dL (0.70-1.30); Calcium 9.1 mg/dL (8.5-10.1); Chloride 98 mmol/L (98-107); Estimated GFR 32.03 (mL/min/1.73m2); Glucose 50 mg/dL (74-106); Magnesium 2.2 mg/dL (1.8-2.4); Potassium 3.7 mmol/L (3.5-5.1); Sodium 138 mmol/L (136-145)
[2023-02-24 07:10] LABS: BUN 101 mg/dL (7-18)
--- NOTE | 2023-02-24 08:00 | DI.MRI_ITS ---
Exam(s) MR LOWER EXTREMITY RT WO EXAM: MR LOWER EXTREMITY RT WO CLINICAL HISTORY: diabetic foot infection/hx of osteo TECHNIQUE: Multiplanar multisequence MRI was performed. No IV contrast. Due to compromise renal st atus. COMPARISON: MR MR LOWER EXTREMITY RT WO/W from 10/17/2019 CR XR FOOT RT COMPLETE from 02/24/2023 CR XR FOOT LT COMPLETE from 02/24/2023 FINDINGS: MUSCLES/SOFT TISSUES: There prominent edema throughout the foot and muscles of the foot. there does not appear to be a distinct focal abscess evident on this noninfused study. no prominent tenosynovit is. no obvious tendon tears. MARROW/ARTICULATIONS:No significant intraosseous signal abnormality in the proximal bones of the foot . More distally there is degenerative signal in subarticular aspects of the distal cuboid as well as proximal cuboid and at the tarsometatarsal joints. There are also septated para-articular ganglia o n cysts off the outer aspect of the calcaneocuboid joint as well as lateral to the articulation betwe en the distal cuboid and base of the 5th metatarsal. In addition, there is a intraosseous cyst in th e proximal aspect of the base of the 4th metatarsal with mild surrounding edema. Also in the articul ation between the middle cuneiform and base of the 2nd metatarsal. There is no significant signal ab normality in the subarticular aspects of the 1st tarsometatarsal joint. There is no abnormal intraos seous signal cysts suggest osteomyelitis in these bones. There is no confluent hypointense T1 signal no corresponding stir bright signal to suggest osteomyelitis. There are no significant osseous lesi ons. No significant marrow edema within the stump of the 1st metatarsal bone. EXTRAMUSCULAR SOFT TISSUES: There is diffuse soft tissue edema/cellulitis. No obvious focal fluid col lection to suggest soft tissue abscess. IMPRESSION: 1. No evidence of osteomyelitis. 2. There cystic degenerative changes at multiple tarsometatarsal articulations. Also para-articular g anglion cyst evident off the lateral aspect of the articulation between the distal cuboid and base of the 5th metatarsal. Similar smaller finding at the calcaneocuboid joint. 3. Diffuse soft tissue edema. However, no evidence of obvious focal abscess. DATA REPOSITORY:
[2023-02-24] MEDS: Carvedilol 25 MG TAB PO ×2 (08:13→20:44)
[2023-02-24] MEDS: Senna TAB 1 TAB PO ×2 (08:13→20:45)
[2023-02-24] MEDS: Pregabalin 50 MG CAP 150 MG PO ×2 (08:13→20:44)
[2023-02-24] MEDS: Multivitamin TAB 1 TAB PO (08:13)
[2023-02-24] MEDS: Clopidogrel 75 MG TAB PO (08:13)
[2023-02-24] MEDS: Polyethylene Glycol 3350 17 GM PACKET PO (08:14)
[2023-02-24] MEDS: Insulin Aspart 300 UNITS/3 ML PEN SC ×4 (08:14→21:52)
[2023-02-24] MEDS: Docusate Sodium 100 MG CAP PO ×2 (08:14→20:45)
[2023-02-24] MEDS: Insulin Glargine 300 UNITS/3 ML PEN 50 UNITS SC ×2 (08:16→20:44)
[2023-02-24] MEDS: Aspirin E.C. 81 MG TABEC PO (08:18)
[2023-02-24] MEDS: DOXYCYCLINE 100 MG in Normal Saline 100 ML IVPB ×2 (10:19→21:47)
[2023-02-24] MEDS: Acetaminophen 325 MG TAB PO (10:24)
--- NOTE | 2023-02-24 12:30 | DI.MRI_ITS ---
Exam(s) MR LOWER EXTREMITY LT WO EXAM: MR LOWER EXTREMITY LT WO CLINICAL HISTORY: CHRONIC ULCER l GREAT TOE TECHNIQUE: Multiplanar multisequence MRI was performed. IV contrast not administered due to diminis hed renal status COMPARISON: MR MR LOWER EXTREMITY RT WO from 02/24/2023 CR XR FOOT LT COMPLETE from 02/24/2023 FINDINGS: MARROW/ARTICULATIONS: There is amputation of the 5th metatarsal at the midshaft level. No abnormal i ntraosseous signal at this level to suggest osteomyelitis. There are some cystic benign-appearing ch anges in the proximal aspect of the remaining 5th metacarpal as well as thin the cuboid. Also in the base of the 4th metacarpal. There is no confluent hypointense signal on T1 imaging to suggest presenc e of osteomyelitis in these bones. There is a joint effusion in the great toe metatarsophalangeal joint. There few small degenerative mckinney barticular cysts on both sides joint but no erosions. Also no abnormal signal in the subjacent sesamo id bones. There is no abnormal intraosseous signal in the phalanges of the remaining toes. MUSCLES/SOFT TISSUES: There is generalized subcutaneous edema over the dorsal aspect of the foot. Ulysses e edema also seen on plantar aspect; less so. There is some generalized increased signal also seen wi thin the muscles of the foot. However, there does not appear to be a discernible abscess on this johana nfused study. OTHER: No evidence of obvious tenosynovitis in the field of view of this study. More proximally in the foot there is signal abnormality in the talus just above the sinus tarsi. No a bnormal signal seen within the subjacent calcaneus including the sustentacular talus and no abnormal signal evident within the navicular and cuboid bones. Some degenerative changes evident in the cuneif orm bones. IMPRESSION: 1. No evidence of osteomyelitis. 2. Prominent soft tissue swelling without evidence of an obvious focal abscess. 3. Increased signal seen throughout the muscles of the foot consistent with element of myositis DATA REPOSITORY:
--- NOTE | 2023-02-24 13:12 | W.NUTRFU ---
Date of service: 02/24/23 Time of Service: 13:12 Nutrition Note NOTE: Dm inpatient consult received. Current home DM protocol adequate with A1C of 7.6%. No education needed at this time. Time Spent in Nutritional Counseling and Treatment: 0
--- NOTE | 2023-02-24 13:15 | DI.US_ITS ---
APPROVED REPORT EXAM: Comprehensive 2D, Doppler, and color-flow Echocardiogram Patient Location: In-Patient Room/Bed: 215 Television Mechanic: Walter Mistry RDMS, RVT Indications: GPC bacteremia Other Information Study Quality: Fair. Technically limited study due to body habitus, inability to position patient. Conclusion Moderate concentric left ventricular hypertrophy. Normal left ventricular chamber size. Ejection fr action is 55%. No segmental wall motion abnormalities are identified The right ventricle is not well visualized. The right atrium is not well visualized Left atrium is mildly dilated Aortic valve is sclerotic and probably trileaflet without stenosis or regurgitation Thickened mitral leaflets, in particular the tip of the anterior leaflet. Mitral annular calcificati on Grossly normal tricuspid valve with mild regurgitation. Estimated right ventricular systolic pressur e is 26 mmHg No definite valvular vegetations identified. Suggest GM for further evaluation Wall motion Left Ventricle The left ventricle is normal size. The overall left ventricular systolic function appears normal. Mo derate concentric left ventricular hypertrophy There is normal LV segmental wall motion. There is no ventricular septal defect visualized. LVEF is 55%. Right Ventricle Right ventricle is not well visualized. Right ventricular systolic function could not be assessed. T he RVSP is 26.0 mmHg. Atria The left atrium is mildly dilated Right atrium is not well visualized The interatrial septum is intac t with no evidence for an atrial septal defect. Aortic Valve The Aortic valve is sclerotic. Aortic valve is probably trileaflet. There is no aortic valvular steno sis. No aortic regurgitation is present. Mitral Valve Miitral annular calcification. No evidence of mitral valve stenosis. Trace mitral regurgitation. Tip of the anterior mitral leaflet is thickened Tricuspid Valve The tricuspid valve is normal in structure. There is no tricuspid valve stenosis. Mild tricuspid regu rgitation. Pulmonic Valve The pulmonary valve is normal in structure. There is no pulmonic valvular stenosis. Mild pulmonic reg urgitation. Great Vessels The aortic root is normal in size. The ascending aorta is normal in size. Aortic arch is not well vis ualized. IVC is normal in size and collapses >50% with inspiration. Pericardium There is no pericardial effusion. 2D Dimensions IVSD d PLAX 0.66 cm M: 0.6-1.2 LV Vol A2C d MOD 201.4 mL LVPW d PLAX 0.67 cm M: 0.6 - 1.2 LV Vol A4C d MOD 104.3 mL LVID d PLAX 5.37 cm M: 4.2 - 5.8 LA vol/ BSA A4C s A-L 25.5 mL/m2 LVDs 3.95 cm M: 2.5 - 4.0 LA Area A4C s MOD 20.70 cm2 Ao Root d 3.21 cm M: 3.1 - 3.7 LV EF A4C MOD 54.7 % Ao Asc Diam d 3.26 cm M: 2.6 - 3.4 LV EF A2C MOD 57.7 % LV EF Teichholz 50.2 % LV EF Biplane MOD 56.3 % LVEF (Anand's) 56.32 % M: 52 - 72 SV 83.07 mL LV Volume 102.65 mL M: 62 - 150 SV Index 32.55 mL/m2 LV Volume Index 40.25 mL/m2 M: 34 - 74 LV Vol Biplane MOD 147.5 mL FS 25.70 % LV Diastology MV E' lateral 0.126 (>0.1 m/s) E/A Ratio 1.7 LV E/e LAT 10.40 (<14) MV E Vmax 1.31 (0.4-1.3 m/s) MV E/E' lateral 10.44 MV A Vmax 0.75 (0.4-1.3 m/s) MV E/A Ratio 1.75 Aortic Valve LVOT Area 3.95 cm2 AoV Area Vmax 2.82 cm2 LVOT Vmax 1.31 m/s AoV Area/ BSA (Vmax) 1.10 cm2/m2 LVOT Mean Sher. 0.85 m/s HALLIE Mean Sher. 2.58 cm2 LVOT Peak Grad 6.9 mmHg HALLIE Mean Sher. Index 1.01 cm2/m2 LVOT Mean Grad 3.4 mmHg LVOT VTI 0.304 m LVOT Diam s 2.20 cm AoV Vmax 1.84 m/s Velocity Ratio 0.71 AoV Mean Sher. 1.30 m/s AoV Peak Grad 13.6 mmHg LVOT SV 120.29 mL AoV Mean Grad 7.6 mmHg AoV VTI 0.419 m AoV Area VTI 2.87 cm2 AoV Area/ BSA (VTI) 1.13 cm/m2 Mitral Valve MV DT 285 (160-240 msec) MV PHT 83 msec MV Area PHT 2.66 cm2 Pulmonary Valve PV Vmax 1.27 (0.5-1.5 m/s) RVOT Peak Gr. 2.49 mmHg PV Peak Grad 6.5 mmHg RVOT Mean Gr. 1.00 mmHg PV Mean Grad 3.3 mmHg RVOT VTI 0.120 m PV VTI 0.254 m RVOT Vmax 0.79 m/s Tricuspid Valve TR Peak Grad 22.9 mmHg TR Vmax 2.40 m/s RA Pressure 3.00 mmHg RVSP (TR) 26.0 mmHg
--- NOTE | 2023-02-24 13:31 | CHAPLAIN ---
Bereket was up in the chair when I visited. He said he's fine and been able to be in touch with family members. He lives with his , Rocío and they have five kids.
--- NOTE | 2023-02-24 15:30 | DI.VRAD_ITS ---
PROCEDURE INFORMATION: Exam: MR Right Lower Extremity Other Than Joint Without Contrast; Foot Exam date and time: 02/24/2023 11:41 AM Age: 68 years old Clinical indication: Other: ? Osteo ulcer over R 1st metarasal head. S/P amp R #1 toe; Prior surgery; Surgery date: 1-6 months TECHNIQUE: Imaging protocol: Magnetic resonance imaging of the right lower extremity without contrast. Exam focused on the foot. COMPARISON: CT LOWER EXTREMITY RT WO 02/22/2023 4:39 PM FINDINGS: Bones/joints: Transmetatarsal amputation of the 1st digit. Periarticular cystic erosive changes involving the cuboid and 3rd cuneiform tarsal bone. Cystic degenerative changes base of the 3rd and 4th metatarsals. No bone marrow edema. No edema within the 1st metatarsal stump. LIGAMENTS: Lisfranc ligament: Unremarkable. No evidence of tear. TENDONS: Flexor tendons of foot: Unremarkable. No evidence of tear. Tibialis posterior tendon: Unremarkable as visualized. Peroneal tendons: Unremarkable as visualized. Extensor tendons of foot: Unremarkable. No evidence of tear. Tibialis anterior tendon: Unremarkable as visualized. Tarsal canal (Sinus tarsi): Unremarkable. Tarsal tunnel: Unremarkable. Soft tissues: Diffuse soft tissue edema/cellulitis. No capsulated fluid collection or soft tissue abscess. Plantar fascia: Unremarkable as visualized. IMPRESSION: 1. No evidence of acute osteomyelitis. 2. Cystic erosive changes present at multiple tarsal-metatarsal articulations. Possible inflammatory arthritis or gout. Dictated and Authenticated by: Ernesto Pizarro MD. Ordering:GINA Rodrigues MD
--- NOTE | 2023-02-24 16:17 | PGE_ITS ---
Date of Service Date of service: 02/24/23 Time of Service: 16:17 Assessment and Plan Assessment and plan (1) Diabetic ulcer of toe of left foot: Status: Acute Assessment and plan: cont doxy and cephazolin MRI of b/l feet/ankles showed no signs of osteomylitis and no abscess cavity. tight control DM BRYCE's NO surgical interventions at this time (2) Peripheral arterial disease: Status: Acute (3) Diabetes mellitus type 2, insulin dependent: Status: Acute (4) Chronic foot ulcer: Status: Acute Subjective Subjective Interval history since last seen: Patient is sitting in his chair. He is doing OK. He feels discouraged. MRI has been done. NO fevers Exam Const General: comfortable and no acute distress Nutritional Appearance: overweight Resp Effort & Inspection: normal respiratory effort Extrem Other: Right foot- there is a small 1 x 0.5 cm area just under the amputation scar at the 1st metatarsal that is dark. It is soft to palpation and tender. I do not feel an abscess. There is +2 pitting edema Left foot- pinhole opening on the 1st metatarsal. HAs been there for 1 year. HAs some calluse around it. Not tender to palpation Objective Last Vital Signs Temp 97.2 F L 02/24/23 14:51 Pulse 59 L 02/24/23 14:51 Resp 20 02/24/23 14:51 BP 163/81 H 02/24/23 14:51 Pulse Ox 98 02/24/23 14:51 Laboratory Results - last 24 hr 02/24/23 02/24/23 06:18 06:18 WBC 9.56 RBC 3.50 L Hgb 10.7 L Hct 30.7 L MCV 88 MCH 30.6 MCHC 34.9 RDW 14.0 Plt Count 172 MPV 10.3 Immature Gran % 1.3 Neutrophils % 67.3 Lymphocytes % 15.4 Monocytes % 12.6 Eosinophils % 2.7 Basophils % 0.7 Nucleated RBC % 0.0 Absolute Neutrophils 6.44 Absolute Lymphocytes 1.47 Absolute Monocytes 1.20 H Absolute Eosinophils 0.26 Absolute Basophils 0.07 Sodium 138 Potassium 3.7 Chloride 98 Carbon Dioxide 30.4 Anion Gap 9.6 BUN 101 H* Creatinine 2.2 H Est GFR (CKD-EPI 2020) 32.03 Glucose 50 L Calcium 9.1 Magnesium 2.2 C-Reactive Protein 8.72 H PAWSS Have you Been Recently Intoxicated or Drunk Within the Last 30 days?: No Have you Ever Experienced Previous Episodes of Alcohol Withdrawal?: No Have you ever Experienced Withdrawal Seizures?: No Have you ever Experienced Delirium Tremens(DT)s?: No Have you ever undergone Alcohol Rehabilitation Treatment (i.e, inpt ot outpatient treatment programs)?: No Have you ever Experienced Blackouts?: No Have you ever Combined Alcohol with other Downers within the last 90 days?: No Have you ever Combined Alcohol with any other Substance of Abuse during the last 90 days?: No Positive Blood Alcohol level on Presentation? [PCS.BAL]: No Evidence of Increased Autonomic Activity (i.e. HR>120, tremor, sweating, agitation, nausea)?: No Result: 0 Time Spent with Patient Time Spent with Patient: 25-34 minutes Time was spent: preparing to see the patient(eg.review tests), obtaining and/or reviewing separately otained hiistory, referring, communicating with other [facility] behavioral health care coordinator and counseling the patient
--- NOTE | 2023-02-24 16:35 | PDOC.CMPRO ---
Date of service: 02/24/23 Time of Service: 16:35 Care Management Progress Note Progress Note Text Progress Note Text: S/O: Bereket had an MRI and echo today. Per report, a GM is recommended to rule out endocarditis. He is on IV antibiotics, and per MD, will likely require an extended course of IV antibiotics. CM will discuss options with Bereket, including home IV abx, SWB, or infusion room. His discharge plan and course of treatment will be determined after a GM is obtained. CM attempted to visit Bereket today, but he was sleeping, and CM did not wake him. CM will continue to follow. A: Bereket is a 68 year old male admitted to [facility] with Lyme's disease, elevated troponin, Sepsis P: Bereket will likely require a prolonged IV abx course, possibly home IV abx vs SWB vs infusion room daily. His will drive him home via private vehicle. He will follow up with his PCP and discharge plan of care. CM will continue to follow.
--- NOTE | 2023-02-24 16:47 | PGE_ITS ---
Date of Service Date of service: 02/24/23 Time of Service: 16:48 Assessment and Plan Assessment and plan (1) Sepsis: Status: Acute Assessment and plan: Due to MSSA bacteremia and acute Lyme disease. Lyme disease is a clinical diagnosis given the history of the tick and the characteristic bull's eye rash. Repeat blood cultures 02/20/23 negative. Continue cefazolin (day 4). Continue doxycycline for Lymes and increase his Ancef to 2 gm IV Q12h for his MSSA bacteremia; in light of his abnormal TTE, will request transfer for GM w/ either [facility] or [facility]. Hopefully can perform a down and back GM. He will need to complete 4 to 6 weeks of antibiotics w/ Ancef (2) Staphylococcus aureus bacteremia: Status: Acute Assessment and plan: As above (3) Diabetic foot infection: Status: Acute Assessment and plan: As above (4) Acute Lyme disease: Status: Acute Assessment and plan: With question of Lyme carditis. Continue doxycycline. Continue to monitor on tele. Echo with normal LV systolic fxn LVEF 55%, no RWMA; he has moderate concentric LVH Troponin elevation was mild and EKG is unchanged. Patient will need GM as described above. (5) Congestive heart failure: Assessment and plan: Remains fluid overloaded and symptomatic. Continue IV furosemide 60 mg IV BID. Continue monitoring Cr, I/Os, daily weights. Await echo. Continue to monitor volume status. (6) Acute kidney injury superimposed on chronic kidney disease: Status: Acute Assessment and plan: In presence of rhabdo but also a large urinary volume in the baldder on US. Rhabdomyolysis has resolved. Improved. Continue diuresis. Does have evidence of urinary retention by bladder scans on 02/20. . Prn straight caths Monitor Cr as diuresis has been intensified. (7) Elevated troponin: Status: Acute Assessment and plan: As above. More likely to be related to Lyme carditis given evidence of 1st degree AV block on EKG. Demand ischemia is also possible, but there is no evidence of true ACS. Finally, rhabdomyolysis can also result in an elevated troponin. Endocarditis is also a possibility. consult w/ [facility] cardiology for GM Continue to monitor on tele. Already on asa, plavix, statin, coreg. (8) Coronary artery disease involving [place] coronary artery of [place] heart with unstable angina pectoris: Status: Chronic Assessment and plan: Continue LITZY, coreg, statin. Continue monitoring on Telemetry. (9) Diabetes mellitus type 2, insulin dependent: Status: Acute Assessment and plan: With hypoglycemia last night. Suspect improved insulin sensitivity given treatment of infection and better control of his diet here. Continue basal bolus insulin, but decrease basal insulin and institute carb coverage. (10) Hypertension: Status: Chronic Assessment and plan: Continue carvedilol with holding parameters. Qualifiers: Hypertension type: essential hypertension Qualified Code(s): I10 - Essential (primary) hypertension (11) Hyperlipidemia: Status: Chronic Assessment and plan: Rosuvastatin resumed Qualifiers: Hyperlipidemia type: unspecified Qualified Code(s): E78.5 - Hyperlipidemia, unspecified (12) Rhabdomyolysis: Status: Resolved (13) DVT prophylaxis: Status: Acute Assessment and plan: SC enoxaparin (14) Discharge planning issues: Status: Acute Assessment and plan: Full Code. Continues to require hospitalization. Subjective Subjective Interval history since last seen: Patient has no new complaints. He is currently on Ancef 1 gm iv Q8h for MSSA bacteremia. Initial blood cultures were positive from 02/18 in two set but repeat cultures from 02/20 showed no growth. He has been afebrile since initially on 02/19. He underwent xray of his feet as well as noncontrast MRI of his feet (Dr. Nieto requested noncontrast MRI). No osteomyelitis was seen in either feet. However he has soft tissue swelling but no discernible abscess. Echocardiogram demonstrated an abnormality over the anterior leaflet of his mitral valve w/ thickening particularly of the tip of the anterior leaflet. Follow up GM is recommended. Exam Narrative Exam Narrative: Morbidly obese white male sitting up in his chair in no acute distress, not dyspneic Lungs: clear Heart: RRR, no discernible murmur or rub Abdomen: obese, soft, nontender Legs: diminished pulses but weakly palpable over DP, no cyanosis; he is s/p amputation of R. great toe and left 5th digit. He has small hardened calloused ulcers w/ pinpoint opening in the skin under the left great MTP and he has small darkened area of skin discoloration on the plantar surface under the L. 1st MTP, feet and legs still edematous Objective Last Vital Signs Temp 36.2 C L 02/24/23 14:51 Pulse 59 L 02/24/23 14:51 Resp 20 02/24/23 14:51 BP 163/81 H 02/24/23 14:51 Pulse Ox 98 02/24/23 14:51 Laboratory Results - last 24 hr 02/24/23 02/24/23 06:18 06:18 WBC 9.56 RBC 3.50 L Hgb 10.7 L Hct 30.7 L MCV 88 MCH 30.6 MCHC 34.9 RDW 14.0 Plt Count 172 MPV 10.3 Immature Gran % 1.3 Neutrophils % 67.3 Lymphocytes % 15.4 Monocytes % 12.6 Eosinophils % 2.7 Basophils % 0.7 Nucleated RBC % 0.0 Absolute Neutrophils 6.44 Absolute Lymphocytes 1.47 Absolute Monocytes 1.20 H Absolute Eosinophils 0.26 Absolute Basophils 0.07 Sodium 138 Potassium 3.7 Chloride 98 Carbon Dioxide 30.4 Anion Gap 9.6 BUN 101 H* Creatinine 2.2 H Est GFR (CKD-EPI 2020) 32.03 Glucose 50 L Calcium 9.1 Magnesium 2.2 C-Reactive Protein 8.72 H PAWSS Have you Been Recently Intoxicated or Drunk Within the Last 30 days?: No Have you Ever Experienced Previous Episodes of Alcohol Withdrawal?: No Have you ever Experienced Withdrawal Seizures?: No Have you ever Experienced Delirium Tremens(DT)s?: No Have you ever undergone Alcohol Rehabilitation Treatment (i.e, inpt ot outpatient treatment programs)?: No Have you ever Experienced Blackouts?: No Have you ever Combined Alcohol with other Downers within the last 90 days?: No Have you ever Combined Alcohol with any other Substance of Abuse during the last 90 days?: No Positive Blood Alcohol level on Presentation? [PCS.BAL]: No Evidence of Increased Autonomic Activity (i.e. HR>120, tremor, sweating, agitation, nausea)?: No Result: 0 Time Spent with Patient Time Spent with Patient: 35-49 minutes Time was spent: preparing to see the patient(eg.review tests), ordering medications,tests, procedures, indepentently interpreting results, counseling the patient and care coordination
--- NOTE | 2023-02-24 17:35 | PT.INTREAT ---
Date of service: 02/24/23 Time of Service: 14:00 PT Notes Visit Reasons: Lyme's Disease,Elevated tropin,Sepsis Inpatient Physical Therapy Treatment Note [facility] Date: 02/24/23 PRECAUTIONS: Standard, activity as tolerated SUBJECTIVE: Patient reports back pain, foot pain in the morning, diminished in the afternoon OBJECTIVE: BED MOBILITY/TRANSFERS Sit-stand: standby Stand-sit: standby Bed-Chair: standby Chair-bed: standby GAIT Assistive Device: FWW Weight bearing: full Assist: standby Distance: 200 feet in the morning 200 feet in the afternoon Deviation: decreased stride length, decreased step height, right foot turned out more than left. THEREX: Seated LE strengthening including sit to stands, heel riases, toe raises, long arc genie boyer ASSESSMENT: Patient tolerates therapy well both times, chooses to stay up in recliner, call magallanes within reach PLAN: Continue strengthening per plan of care TREATMENT CODE/TIME: [id number] gait 17 minutes beginning at 10:23 [id number] gait 16 minutes, [id number] therex 10 minutes beginning at 14:03
[2023-02-24] MEDS: Rosuvastatin 10 MG TAB 40 MG PO (20:45)
[2023-02-24] MEDS: Enoxaparin 40 MG/0.4 ML SYR SC (21:52)
[2023-02-24] MEDS: hydrOXYzine HCL 25 MG TAB PO (21:52)
[2023-02-25] VITALS (9 sets, daily range): BP systolic 118–178; BP diastolic 53–78; PULSE 54–64; RESP 16–20; TEMP 36.4–37; O2SAT 95–97
[2023-02-25] MEDS: ceFAZolin 2 GM/50 ML BAG IVPB ×3 (00:13→23:26)
[2023-02-25] MEDS: Acetaminophen 325 MG TAB PO ×2 (03:44→15:23)
[2023-02-25 07:10] LABS: Abs Immature Grans 0.12 10^3/uL (0.0-0.06); Absolute Basophil Count 0.06 10^3/uL (0.0-0.2); Absolute Eosinophil Count 0.22 10^3/uL (0.0-0.7); Absolute Monocyte Count 1.22 10^3/uL (0.1-0.8); Absolute Neutrophil Count 6.77 10^3/uL (1.2-6.7); Basophils % 0.6; Eosinophils % 2.2; HCT 29.7 % (40.0-50.0); HGB 10.2 g/dL (13.5-17.5); Immature Grans % 1.2; MCH 30.3 pg (27.0-33.0); MCHC 34.3 % (32.0-36.0); MCV 88 fL (80-95); MPV 10.5 fL (8.0-11.0); Monocytes % 12.2; Neutrophils % 67.8; Platelet Count 181 10^3/uL (130-400); RBC 3.37 10^6/uL (4.36-5.78); RDW-SD 44.8 fL; WBC 9.99 10^3/uL (4.4-10.8)
[2023-02-25 07:21] LABS: ESR 53 mm/hr (0-20)
[2023-02-25 07:28] LABS: Anion Gap 8.8 mmol/L (3-11); C-Reactive Protein 7.66 mg/dL (0.0-0.3); CO2 30.2 mmol/L (21.0-32.0); Calcium 9.4 mg/dL (8.5-10.1); Chloride 100 mmol/L (98-107); Estimated GFR 35.91 (mL/min/1.73m2); Glucose 90 mg/dL (74-106); Sodium 139 mmol/L (136-145)
[2023-02-25 07:41] LABS: BUN 94 mg/dL (7-18)
[2023-02-25] MEDS: Senna TAB 1 TAB PO ×2 (08:14→19:52)
[2023-02-25] MEDS: Multivitamin TAB 1 TAB PO (08:14)
[2023-02-25] MEDS: Clopidogrel 75 MG TAB PO (08:14)
[2023-02-25] MEDS: Pregabalin 50 MG CAP 150 MG PO (08:14)
[2023-02-25] MEDS: Aspirin E.C. 81 MG TABEC PO (08:14)
[2023-02-25] MEDS: Carvedilol 25 MG TAB PO ×2 (08:15→19:53)
[2023-02-25] MEDS: Docusate Sodium 100 MG CAP PO ×2 (08:15→19:56)
[2023-02-25] MEDS: Insulin Glargine 300 UNITS/3 ML PEN 50 UNITS SC (08:16)
--- NOTE | 2023-02-25 09:45 | PGE_ITS ---
Date of Service Date of service: 02/25/23 Time of Service: 09:46 Assessment and Plan Assessment and plan (1) Diabetic ulcer of toe of left foot: Status: Acute Assessment and plan: cont doxy and cephazolin MRI of b/l feet/ankles showed no signs of osteomylitis and no abscess cavity. tight control DM BRYCE's Wound located on the left great toe, may benefit from debridement, given it's chronicity. No surgical interventions at this time, however will continue to monitor. I saw and examined Mr. Melara, and I agree with Jeanne's notes. For now, I would continue with topical therapies and wound care. He should try to keep his feet elevated while out of bed. (2) Peripheral arterial disease: Status: Acute (3) Diabetes mellitus type 2, insulin dependent: Status: Acute (4) Chronic foot ulcer: Status: Acute Subjective Subjective Interval history since last seen: Arrived with patient sitting up in the chair. He denies having any pain at this time. He states that these lower extremities were wrapped in Hilario wrap last night to help with the swelling. Exam Const General: cooperative and comfortable Nutritional Appearance: obese Orientation: alert and oriented x3 Resp Effort & Inspection: normal respiratory effort, no audible wheezes and no cough Skin Other: Right foot- Distal to the first metatarsal, dorsal aspect there is an area of discoloration red and randolph. Tender to palpation. No area of fluctulance or increasing erythema. Left foot- A small opening noted on the lateral aspect of the great toe. No erythema or swelling. Some adherent drainage noted around the area. Objective Last Vital Signs Temp 36.4 C L 02/25/23 07:57 Pulse 55 L 02/25/23 07:57 Resp 20 02/25/23 07:57 BP 151/59 H 02/25/23 07:57 Pulse Ox 97 02/25/23 07:57 Laboratory Results - last 24 hr 02/25/23 02/25/23 06:25 06:25 WBC 9.99 RBC 3.37 L Hgb 10.2 L Hct 29.7 L MCV 88 MCH 30.3 MCHC 34.3 RDW 14.0 Plt Count 181 MPV 10.5 Immature Gran % 1.2 Neutrophils % 67.8 Lymphocytes % 16.0 Monocytes % 12.2 Eosinophils % 2.2 Basophils % 0.6 Nucleated RBC % 0.0 Absolute Neutrophils 6.77 H Absolute Lymphocytes 1.60 Absolute Monocytes 1.22 H Absolute Eosinophils 0.22 Absolute Basophils 0.06 Sodium 139 Potassium 4.0 Chloride 100 Carbon Dioxide 30.2 Anion Gap 8.8 BUN 94 H* Creatinine 2.0 H Est GFR (CKD-EPI 2020) 35.91 Glucose 90 Calcium 9.4 C-Reactive Protein 7.66 H PAWSS Have you Been Recently Intoxicated or Drunk Within the Last 30 days?: No Have you Ever Experienced Previous Episodes of Alcohol Withdrawal?: No Have you ever Experienced Withdrawal Seizures?: No Have you ever Experienced Delirium Tremens(DT)s?: No Have you ever undergone Alcohol Rehabilitation Treatment (i.e, inpt ot outpatien t treatment programs)?: No Have you ever Experienced Blackouts?: No Have you ever Combined Alcohol with other Downers within the last 90 days?: No Have you ever Combined Alcohol with any other Substance of Abuse during the last 90 days?: No Positive Blood Alcohol level on Presentation? [PCS.BAL]: No Evidence of Increased Autonomic Activity (i.e. HR>120, tremor, sweating, agitation, nausea)?: No Result: 0 Time Spent with Patient Time Spent with Patient: <25 minutes Time was spent: preparing to see the patient(eg.review tests) and counseling the patient
[2023-02-25] MEDS: Polyethylene Glycol 3350 17 GM PACKET PO (09:50)
[2023-02-25] MEDS: DOXYCYCLINE 100 MG in Normal Saline 100 ML IVPB ×2 (09:57→21:52)
--- NOTE | 2023-02-25 11:28 | PDOC.CMPRO ---
Date of service: 02/25/23 Time of Service: 11:28 Care Management Progress Note Progress Note Text Progress Note Text: S/O: Bereket was sitting up in his chair when CM met with him. He reported that per MD, he may go to [facility] for a GM, which will likely be a down and back procedure. CM stated that per MD, he may need a prolonged course of antibiotics, and discussed the discharge planning options including remaining in SW[facility] for the duration, going to the infusion room daily, or home IV antibiotics. He stated that his first choice would be to have home IV antibiotics. CM will send orders to [facility] once his course is determined. CM will continue to follow. A: Bereket is a 68 year old male admitted to [facility] with Lyme's disease, elevated troponin, Sepsis P: Bereket will likely require a prolonged IV abx course, possibly home IV abx vs SWB vs infusion room daily. His will drive him home via private vehicle. He will follow up with his PCP and discharge plan of care. CM will continue to follow.
[2023-02-25] MEDS: Insulin Aspart 300 UNITS/3 ML PEN SC ×3 (12:23→20:45)
--- NOTE | 2023-02-25 13:11 | PT.INTREAT ---
Date of service: 02/25/23 Time of Service: 10:23 PT Notes Visit Reasons: Lyme's Disease,Elevated tropin,Sepsis Inpatient Physical Therapy Treatment Note [facility] Date: 02/25/23 PRECAUTIONS: Fall, standard, activity as tolerated SUBJECTIVE: Patient sitting up in recliner, agreeable to therapy OBJECTIVE: PAIN: None initially, c/o some pain (2-3) in foot with initiation of ambulation, c/o moderate low back pain (chronic for years, about a 5) at about 150 feet, c/o significant foot pain with release of pressure from foot on return to recliner. It hurts worse getting off it then it does getting on! BED MOBILITY/TRANSFERS Sit-stand: Standby Stand-sit: Standby Bed-Chair: Standby Chair-bed: Standby GAIT Assistive Device: FWW Weight bearing: Full Assist: Standby Distance: 225 feet Deviation: Shortened step length, reduced step height, feet / hips externally rotated. ASSESSMENT: Patient reports feeling like he walks worse now then he did before he came in. PLAN: Continue strengthening per plan of care. Patient does not have FWW at home, advised patient that we should try progressing to SPC today to see how he tolerates it. Patient feels that he still uses the walker quite a bit. TREATMENT CODE/TIME: 54978 Gait 17 minutes beginning at 1023
--- NOTE | 2023-02-25 16:15 | PGE_ITS ---
Date of Service Date of service: 02/25/23 Time of Service: 16:15 Assessment and Plan Assessment and plan (1) Sepsis: Status: Acute Assessment and plan: Due to MSSA bacteremia and acute Lyme disease. Lyme disease is a clinical diagnosis given the history of the tick and the characteristic bull's eye rash. Repeat blood cultures 02/20/23 negative. Continue cefazolin (day 5). Needs 4 to 6 weeks of antibiotics. I am recommending GM in light of his thickened mitral valves w/ particularly thickened anterior mitral leaflet. I have contacted [facility] and they will have Dr. Murdock review his TTE and decide whether or not a GM is indicated. Continue doxycycline for Lymes and increase his Ancef to 2 gm IV Q12h for his MSSA bacteremia (2) Staphylococcus aureus bacteremia: Status: Acute Assessment and plan: As above (3) Diabetic foot infection: Status: Acute Assessment and plan: As above (4) Acute Lyme disease: Status: Acute Assessment and plan: Continue doxycycline. dc telemetry, no arrythmias. Has been in NSR w/ 1st degree AV block but no a dvanced block, doubt Lymes carditis given his normal LV function. Echo with normal LV systolic fxn LVEF 55%, no RWMA; he has moderate concentric LVH Troponin elevation was mild and EKG is unchanged. Awaiting Dr. Murdock evaluation of his TTE to determine whether or not GM is warranted. (5) Congestive heart failure: Assessment and plan: Patient has been prerenal azotemia w/ rising BUN in the low 100's (baseline is 50 to 60) although creatinine of 2 is about his baseline although he did reach 2.6 recently. I have put his lasix on hold for now. continue to monitor his daily BMP (6) Acute kidney injury superimposed on chronic kidney disease: Status: Acute Assessment and plan: In presence of rhabdo in which his CK peaked at 1465 but has since resolved Improved. hold diuretics for now, allow BUN to drift back to baseline, monitor wts and I/O and daily BMP. Does have evidence of urinary retention by bladder scans on 02/20. . Prn straight caths (7) Elevated troponin: Status: Acute Assessment and plan: likely d/t rhabdomyolysis, not likely Lyme's carditis, i.e. his 1st degree AV block and RBBB have been present dating back to 06/29/22 and furthermore his echo showed no wall motion abnormalities and no systolic dyfunction. he has had no ischemic pain. (8) Coronary artery disease involving [place] coronary artery of [place] heart with unstable angina pectoris: Status: Chronic Assessment and plan: Continue LITZY, coreg, statin. Continue monitoring on Telemetry. (9) Diabetes mellitus type 2, insulin dependent: Status: Acute Assessment and plan: glucose readings have been falling since his MSSA bacteremia has come under improved control. Glucose this morning was down to 94 and for the rest of the day he has been under 150. I will decrease both his sliding scale as well as his Lantus. He has been on Lantus 50 units bid, I will decrease to 40 bid and decrease his sliding scale to moderate dose. he also may need adjustment in his insulin to CHO ratio which currently is at 1:5. (10) Hypertension: Status: Chronic Assessment and plan: Continue carvedilol with holding parameters. Qualifiers: Hypertension type: essential hypertension Qualified Code(s): I10 - Essential (primary) hypertension (11) Hyperlipidemia: Status: Chronic Assessment and plan: Rosuvastatin resumed, will need to watch for recurrent rhabdomyolysis but I believe this was related to his sepsis and not from his statin. Qualifiers: Hyperlipidemia type: unspecified Qualified Code(s): E78.5 - Hyperlipidemia, unspecified (12) Rhabdomyolysis: Status: Resolved (13) DVT prophylaxis: Status: Acute Assessment and plan: SC enoxaparin (14) Discharge planning issues: Status: Acute Assessment and plan: Full Code. Continues to require hospitalization. Once determination regarding getting GM done has been decided upon, he can be dc on outpatient iv ancef which he will need for total of minimum 4 weeks and depending on GM findings may need as long as 6 weeks. He should be referred to podiatry upon discharge. We do not have podiatry here at [facility]. Subjective Subjective Interval history since last seen: No new complaints. some soreness under his feet. He is particularly concerned about the spot under his right 1st MTP where he has calloused area of skin w/ some dark spot that looks like bruising. he also has left foot w/ chronic thickened callous under left 1st MTP w/ small opening. I explained to him that is the probable source of his MSSA bacteremia. I also discussed w/ him my conversations w/ [facility] to try to arrange an over and back GM to evaluate his thickened anterior mitral valve leaflet to rule out endocarditis. Exam Narrative Exam Narrative: Bereket is sitting in his chair, NAD, A&O X 3 Lungs: clear Heart: RRR Abdomen: obese, soft, nontedner Legs/feet: 1+ edema, improving. now w/ ADA wraps, no cyanosis, left 1st MTP planar surface w/ calloused ulcer but no purulent drainage, right foot w/ small callous w/ dark spot in the center, nontender to palpation, no opening in the skin Objective Last Vital Signs Temp 36.9 C 02/25/23 15:10 Pulse 54 L 02/25/23 15:10 Resp 18 02/25/23 15:10 BP 156/53 H 02/25/23 15:10 Pulse Ox 97 02/25/23 15:10 Laboratory Results - last 24 hr 02/25/23 02/25/23 02/25/23 06:25 06:25 06:25 WBC 9.99 RBC 3.37 L Hgb 10.2 L Hct 29.7 L MCV 88 MCH 30.3 MCHC 34.3 RDW 14.0 Plt Count 181 MPV 10.5 Immature Gran % 1.2 Neutrophils % 67.8 Lymphocytes % 16.0 Monocytes % 12.2 Eosinophils % 2.2 Basophils % 0.6 Nucleated RBC % 0.0 Absolute Neutrophils 6.77 H Absolute Lymphocytes 1.60 Absolute Monocytes 1.22 H Absolute Eosinophils 0.22 Absolute Basophils 0.06 ESR 53 H Sodium 139 Potassium 4.0 Chloride 100 Carbon Dioxide 30.2 Anion Gap 8.8 BUN 94 H* Creatinine 2.0 H Est GFR (CKD-EPI 2020) 35.91 Glucose 90 Calcium 9.4 C-Reactive Protein 7.66 H PAWSS Have you Been Recently Intoxicated or Drunk Within the Last 30 days?: No Have you Ever Experienced Previous Episodes of Alcohol Withdrawal?: No Have you ever Experienced Withdrawal Seizures?: No Have you ever Experienced Delirium Tremens(DT)s?: No Have you ever undergone Alcohol Rehabilitation Treatment (i.e, inpt ot outpatient treatment programs)?: No Have you ever Experienced Blackouts?: No Have you ever Combined Alcohol with other Downers within the last 90 days?: No Have you ever Combined Alcohol with any other Substance of Abuse during the last 90 days?: No Positive Blood Alcohol level on Presentation? [PCS.BAL]: No Evidence of Increased Autonomic Activity (i.e. HR>120, tremor, sweating, agitation, nausea)?: No Result: 0 Time Spent with Patient Time Spent with Patient: 35-49 minutes Time was spent: preparing to see the patient(eg.review tests), ordering medications,tests, procedures, referring, communicating with other health memory care program director (call[place] to [facility] and to [facility]), indepentently interpreting results, counseling the patient and care coordination
[2023-02-25] MEDS: Rosuvastatin 20 MG TAB 40 MG PO (19:52)
[2023-02-25] MEDS: Pregabalin 150 MG CAP PO (19:52)
[2023-02-25] MEDS: Insulin Glargine 300 UNITS/3 ML PEN 40 UNITS SC (20:48)
[2023-02-25] MEDS: Enoxaparin 40 MG/0.4 ML SYR SC (21:52)
[2023-02-25] MEDS: hydrOXYzine HCL 25 MG TAB PO (21:52)
[2023-02-26] MEDS: Acetaminophen 325 MG TAB PO ×3 (00:07→14:11)
[2023-02-26 03:25] VITALS: BP 159/92; PULSE 55; RESP 20; TEMP 36.2; O2SAT 96
[2023-02-26 06:52] LABS: Abs Immature Grans 0.13 10^3/uL (0.0-0.06); Absolute Basophil Count 0.04 10^3/uL (0.0-0.2); Absolute Eosinophil Count 0.24 10^3/uL (0.0-0.7); Absolute Lymphocyte Count 1.44 10^3/uL (1.2-3.4); Absolute Monocyte Count 1.05 10^3/uL (0.1-0.8); Absolute Neutrophil Count 6.21 10^3/uL (1.2-6.7); Basophils % 0.4; Eosinophils % 2.6; HCT 31.1 % (40.0-50.0); HGB 10.6 g/dL (13.5-17.5); Immature Grans % 1.4; Lymphocytes % 15.8; MCHC 34.1 % (32.0-36.0); MCV 88 fL (80-95); Monocytes % 11.5; Neutrophils % 68.3; Platelet Count 189 10^3/uL (130-400); RBC 3.53 10^6/uL (4.36-5.78); WBC 9.11 10^3/uL (4.4-10.8)
[2023-02-26 07:06] LABS: Anion Gap 7.5 mmol/L (3-11); BUN 77 mg/dL (7-18); C-Reactive Protein 7.78 mg/dL (0.0-0.3); CO2 30.5 mmol/L (21.0-32.0); CREATININE 1.9 mg/dL (0.70-1.30); Calcium 9.2 mg/dL (8.5-10.1); Chloride 100 mmol/L (98-107); Estimated GFR 38.19 (mL/min/1.73m2); Glucose 118 mg/dL (74-106); Potassium 4.1 mmol/L (3.5-5.1); Sodium 138 mmol/L (136-145)
[2023-02-26] MEDS: Docusate Sodium 100 MG CAP PO ×2 (07:40→20:02)
[2023-02-26] MEDS: Polyethylene Glycol 3350 17 GM PACKET PO (07:40)
[2023-02-26] MEDS: Clopidogrel 75 MG TAB PO (07:40)
[2023-02-26] MEDS: Senna TAB 1 TAB PO ×2 (07:40→20:03)
[2023-02-26] MEDS: Multivitamin TAB 1 TAB PO (07:40)
[2023-02-26] MEDS: Pregabalin 150 MG CAP PO ×2 (07:40→20:04)
[2023-02-26] MEDS: Aspirin E.C. 81 MG TABEC PO (07:40)
[2023-02-26] MEDS: Carvedilol 25 MG TAB PO ×2 (07:40→20:03)
[2023-02-26] MEDS: Insulin Glargine 300 UNITS/3 ML PEN 40 UNITS SC ×2 (07:53→21:39)
[2023-02-26 07:54] VITALS: BP 167/73; PULSE 60; RESP 18; TEMP 36.4; O2SAT 97
[2023-02-26] MEDS: Insulin Aspart 300 UNITS/3 ML PEN SC ×5 (08:19→21:38)
[2023-02-26] MEDS: Sacubitril/Valsartan 24 mg/26 mg TAB 1 EACH PO ×2 (10:10→20:04)
[2023-02-26] MEDS: DOXYCYCLINE 100 MG in Normal Saline 100 ML IVPB (10:10)
[2023-02-26] MEDS: ceFAZolin 2 GM/50 ML BAG IVPB ×2 (11:19→21:30)
[2023-02-26 11:50] VITALS: BP 127/46; PULSE 54; RESP 22; TEMP 36.2; O2SAT 96
[2023-02-26 15:15] VITALS: BP 137/67; PULSE 53; RESP 18; TEMP 34.9; O2SAT 97
--- NOTE | 2023-02-26 15:22 | CMPROGNOTE_ITS ---
Care Management Progress Note Progress Note Text Progress Note Text: S/O: Discussed discharge planning with Bereket, Dr. Martinez and Nannette VARGAS of Infusion Room. Bereket is not interested in staying at [facility] prison, stating that a week has felt like long enough. He also does not feel confident he can afford home infusion as he has Medicare only. Bereket will discuss twice daily trips to the [facility] Infusion Room with his . Tentatively, these may begin at [id number] as the current orders are q12. He will also require outpatient follow up appointments for podiatry and with [facility] for GM; per . MD ordered Midline to be placed today. Anticipate he will receive scheduled antibiotic tonight and tomorrow morning and then discharge home to return to Infusion Room tomorrow evening; reviewed with SAM Brunson of Infusion room and MD. continues to follow. A: Bereket is a 68 year old male admitted to [facility] with Lyme's disease, elevated troponin, Sepsis P: Bereket will discharge home to continue IV ABX course at [facility] Infusion room. He will transport via private vehicle with his , follow up with his PCP, [facility] for GM and Podiatry, per .
--- NOTE | 2023-02-26 15:22 | PDOC.CMPRO ---
Care Management Progress Note Progress Note Text Progress Note Text: S/O: Discussed discharge planning with Bereket, Dr. Martinez and Nannette VARGAS of Infusion Room. Bereket is not interested in staying at [facility] care home, stating that a week has felt like long enough. He also does not feel confident he can afford home infusion as he has Medicare only. Bereket will discuss twice daily trips to the [facility] Infusion Room with his . Tentatively, these may begin at [id number] as the current orders are q12. He will also require outpatient follow up appointments for podiatry and with [facility] for GM; per . MD ordered Midline to be placed today. Anticipate he will receive scheduled antibiotic tonight and tomorrow morning and then discharge home to return to Infusion Room tomorrow evening; reviewed with SAM Brunson of Infusion room and MD. continues to follow. A: Bereket is a 68 year old male admitted to [facility] with Lyme's disease, elevated troponin, Sepsis P: Bereket will discharge home to continue IV ABX course at [facility] Infusion room. He will transport via private vehicle with his , follow up with his PCP, [facility] for GM and Podiatry, per .
--- NOTE | 2023-02-26 15:40 | PT.INTREAT ---
Date of service: 02/26/23 Time of Service: 09:43 PT Notes Visit Reasons: Lyme's Disease,Elevated tropin,Sepsis Inpatient Physical Therapy Treatment Note [facility] Date: 02/26/23 PRECAUTIONS: Fall, standard, activity as tolerated SUBJECTIVE: Patient reports feeling much better today, slept well last night, no pain OBJECTIVE: PAIN: none reported BED MOBILITY/TRANSFERS Sit-stand: standby Stand-sit: standby Bed-Chair: standby Chair-bed: standby GAIT Assistive Device: FWW Weight bearing: full Assist: standby Distance: 300 feet Deviation: stride length improved today, [place] improved today, Patient observes even [his] back feels pretty good. THEREX: 5x eccentric focused sit to stands STAIRS: ascends and descends 3x four inch steps and 2x six inch steps. Observes that going down steps is difficult for him as he feels he loses eccentric control. Stairs at home have bilateral handrails. Reciprocal gait pattern. ASSESSMENT: Patient tolerates therapy well, is seated comfortably at end of session with call magallanes within reach. PLAN: Continue building activity tolerance, strengthening per plan of care. TREATMENT CODE/TIME: 39614 Gait 19 minutes
--- NOTE | 2023-02-26 17:11 | PT.INPN ---
Date of service: 02/26/23 Time of Service: 15:51 PT Notes Visit Reasons: Lyme's Disease,Elevated tropin,Sepsis Physical Therapy Inpatient Progress Note Date: 02/26/2023 Dates of Service: 02/19/2023 through 02/26/2023 Referring Doctor:Lary Victor MD PT Orders: PT CONSULT: Limited ability Precautions: Fall.? Standard.? Activity as tolerated. Patient Profile/Admitting Diagnosis:? Patient is an 68-year-old patient who presented to the ED on 02/18/2023 due to uncontrollable shaking and generalized weakness.? Patient was admitted for management of acute lyme disease,? elevated troponin,? CAD,? CHF,? DM Type II,? CKD,? PAD,? Gout,? HTN,? chronic pain syndrome,? hyperlipidemia.? PMHX: All Active Problems?(Updated 02/18/23 @ 20:58 by Jamie Corona MD) Discharge planning issues (Acute) Elevated troponin (Acute) Acute Lyme disease (Acute) Peripheral arterial disease (Acute) Nail dystrophy (Acute) Chronic foot ulcer (Acute) Hyperkalemia (Acute 07/26/14) Cellulitis (Acute) Diabetic foot infection (Acute) Leg wound, left (Acute) Diabetic retinopathy (Acute ~12/2021) B/L MODERATE-01/17 Edema (Acute) Gout (Chronic) 08/2021-diagnosed by rheumatology at [facility]-probable? gout tophi of hands Obesity (Chronic) Diabetes mellitus type 2, insulin dependent (Acute) with nephropathy Chronic kidney disease (CKD) (Chronic) 08/2021- Cr 1.7 Hand arthritis (Acute) Amputation of toe (Acute) Cellulitis of foot, right (Acute) Diabetes mellitus type 2, insulin dependent (Acute) Right heart failure (Acute) Diabetic peripheral neuropathy (Chronic) Diabetic peripheral angiopathy (Chronic) Hypertension (Chronic) Chronic pain syndrome (Chronic) low back pain, drug contract at [facility] PMS and drug screen on 08/1221-patient on chronic hydrocodone Coronary artery disease involving [place] coronary artery of [place] heart with unstable angina pectoris (Chronic 08/30/17) 08-24-2017 [facility] cardiac CATH: 3 vessel disease (LAD,LCx and RCA): coronary bypass sx pending Dyspnea on exertion (Chronic 12/16/13) negative nuclear stress test echocardiogram: normal/ EF 65%/no valvulopathy Cardiol.eval. :? not ischemia related ([facility]) Peripheral autonomic neuropathy in disorders classified elsewhere (Chronic 09/15/14) Hyperlipidemia (Chronic) Medical History? Congestive heart failure Diabetic foot ulcer DM (diabetes mellitus) 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 secondary to diabetic ulcer, angiopathy Laceration of lower leg with foreign body Lymphedema Obesity Proliferative diabetic retinopathy of both eyes without macular edema associated with diabetes mellitus due to underlying condition (01/18/18) 01/18/18-[facility] 01/31/19-[facility] Scrotal hematoma (07/26/14) A.? S/p hydrocelectomy 07/24/14Stroke (~2008) TIA (transient ischemic attack) Surgical History? H/O surgical procedure A.? Hydrocelectomy 07/24/2014 History of cataract removal with insertion of prosthetic lens History of hydrocelectomy (07/24/14) right S/P CABG x 3 (08/30/17) [facility] [place] 08-29-2017? : no fup needed Social History/Home Situation: Lives with in a private home.? Independent with all aspects of ADLs prior to admission.? Occasionally uses SPC outdoors.? Equipment Owned/DME: SPC Subjective: Agreeable to walking in the hallway on his own with a walker. Okay to be discharged from PT anytime as he feels that his strength is back to how it was prior to admission. Reports 6-7/10 pain in the low back that required a quick standing rest after walking 300 feet. Objective: General Observation: Seated on beside bed.? No lines. Mental Status: Alert and oriented as to person, place, time, and purpose. Able to pay attention, focus, and respond appropriately. Pain: Mild pain in low back area (chronic) Vital Signs: WNL ROM: Right Upper Extremity: ? Shoulder Flexion WFL. Shoulder abduction WFL. Elbow flexion WFL. Wrist flexion WFL. Functional opening and closing of hand WFL. Left Upper Extremity:? Shoulder Flexion WFL. Shoulder abduction WFL. Elbow flexion WFL. Wrist flexion WFL. Functional opening and closing of hand WFL. Right Lower Extremity: Hip flexion WFL. Hip abduction WFL. Knee flexion WFL. Ankle dorsiflexion WFL. Ankle plantarflexion WFL. Left Lower Extremity: Hip flexion WFL.? Hip abduction WFL. Knee flexion WFL.? Ankle dorsiflexion WFL.? Ankle plantarflexion WFL. Strength: Right Upper Extremity: Shoulder flexors 4/5. Shoulder abductors 4/5. Elbow flexors 5/5. Elbow extensors 5/5. Estate Planning Paralegal strong. Left Upper Extremity: Shoulder flexors 4/5. Shoulder abductors 4/5. Elbow flexors 5/5. Elbow extensors 5/5. Estate Planning Paralegal strong. Right Lower Extremity: Hip flexors 4/5. Hip abductors 4/5. Knee flexors 5/5. Knee extensors 4/5. Ankle dorsiflexors 4/5. Ankle plantarflexors 5/5. Left Lower Extremity: Hip flexors 4/5. Hip abductors 4/5. Knee flexors 5/5. Knee extensors 4/5. Ankle dorsiflexors 4/5. Ankle plantarflexors 5/5. Bed Mobility/Transfers: Sit to stand independent Stand to sit independent Bed to bedside commode independent Bedside commode to bed independent Bed to reclining chair independent Reclining chair to bed independent Gait: Instructed patient with level surface ambulation of 300 feet requiring FWW independently. Able to pace self and stop as he needs to based on his breathing and low back pain. Stairs: Has been able to manage steps with ENGINEERING PROJECT DESIGNER Kathie with no issues while holding onto B rails. Balance: Static Sitting: Normal Dynamic Sitting: Normal Static Standing: Good Dynamic Standing: Fair Special Tests: Mobility Limitations Standardized Measure [facility]-PAC 6 clicks Basic Mobility Inpatient Short Form: Raw Score: 24? CMS Score: 0% deficit? ? ? Informed Consent/Education:? Patient was instructed in purpose of PT consult and plan of care.? Agreeable to discharging from PT as he is now modified independent with level surface ambulation using the FWW. Assessment: Now modified independent with level surface ambulation and will be discontinued from services at highest mobility level using FWW. manager code will be updated of said D/C plan tomorrow morning. Patient is assessed as a 27493 low complexity based on the following: History: 68-year-old female with past medical history as indicated above Examination: Now mod independent with FWW in the hallway Presentation: Evolving Decision Makin moderate complexity Goals: Goals X1 week 1. Supine-Sit independent MET 2. Sit-Supine independent MET 3. Sit-Stand independent MET 4. Stand-Sit independent with no AD NOT MET, DISCHARGE GOAL, patient at highest mobility level using FWW due to preexisting cardiac issue and GIBSON 5. Bed-Chair independent with no AD NOT MET, DISCHARGE GOAL, patient at highest mobility level using FWW due to preexisting cardiac issue and GIBSON 6. Chair-Bed independent with no AD NOT MET, DISCHARGE GOAL, patient at highest mobility level using FWW due to preexisting cardiac issue and GIBSON 7. Independent gait on level surface with use of no AD for at least 300 feet without report of pain nor dyspnea NOT MET, DISCHARGE GOAL, patient at highest mobility level using FWW due to preexisting cardiac issue and GIBSON 8. Independent stair negotiation while holding onto B rails for at least 3 steps without report of pain nor dyspnea MET 9. Independent with home exercise program NOT MET, copy of HEP to be provided prior to D/C 10. Good static and dynamic standing balance/tolerance NOT MET due to toe amputation, now at highest mobility level Plan of Care/Treatment Plan: D/C form services as soon as HEP education is made and notification is given to CM. DISCHARGE RECOMMENDATIONS: [] ? Home with no services [] [X] ? Home with services.? Patient will benefit from home health PT services in order to progress mobility level using least restrictive assistive ambulatory device, assess home safety, identify additional equipment needs, and establish a functional maintenance program that will increase ability of patient to remain at home. [] ? Home with outpatient PT [] [] ? SNF for continued rehabilitation [] [] ? Self Propelled Dredge Operator Care [] [] ? SNF versus LTC based on ability to participate and progress [] TREATMENT CODE/TIME: 80706 x 26 minutes beginning at 15:51 PM. Thank you for the opportunity to participate in the care of this patient. Kimberly Enciso PT, DPT, CLT [facility] [place], [place]
--- NOTE | 2023-02-26 17:20 | W.PM.PROGNOT ---
Date of Service Date of service: 02/26/23 Time of Service: 17:20 Assessment and Plan Assessment and plan (1) Staphylococcus aureus bacteremia: Status: Acute Assessment and plan: Ancef 2 gm iv q12h through his midline through 03/20 but possible may need to go to 04/03. Patient to be referred to cardiology at [facility] for GM. I had asked [facility] to try to get outpatient set up but patient prefers to go to [facility]. (2) Diabetic foot infection: Status: Acute Assessment and plan: As above (3) Acute Lyme disease: Status: Acute Assessment and plan: Continue doxycycline. dc telemetry, no arrythmias. Has been in NSR w/ 1st degree AV block but no advanced block, doubt Lymes carditis given his normal LV function and his stable EKG Echo with normal LV systolic fxn LVEF 55%, no RWMA; he has moderate concentric LVH Troponin elevation was mild and EKG is unchanged. (4) Congestive heart failure: Assessment and plan: Patient has been prerenal azotemia w/ rising BUN in the low 100's (baseline is 50 to 60) although creatinine of 2 is about his baseline although he did reach 2.6 recently. I have put his lasix on hold for now. continue to monitor his daily BMP His BUN and creatinine are now down to near his baseline at 77 and 1.9. I will resume his home dose of lasix 80 mg twice a day. (5) Acute kidney injury superimposed on chronic kidney disease: Status: Acute Assessment and plan: In presence of rhabdo in which his CK peaked at 1465 but has since resolved Improved. Patient had prerenal azotemia from iv diuretics but is now recovering and he is showing some increased edema in his leg and feet. I have restarted his furosemide at 80 mg po bid (6) Elevated troponin: Status: Acute Assessment and plan: likely d/t rhabdomyolysis, not likely Lyme's carditis, i.e. his 1st degree AV block and RBBB have been present dating back to 06/29/22 and furthermore his echo showed no wall motion abnormalities and no systolic dyfunction. he has had no ischemic pain. (7) Coronary artery disease involving [place] coronary artery of [place] heart with unstable angina pectoris: Status: Chronic Assessment and plan: Continue LITZY, coreg, statin. Continue monitoring on Telemetry. (8) Diabetes mellitus type 2, insulin dependent: Status: Acute Assessment and plan: improving on basal/bolus insulin with carb coverage (9) Hypertension: Status: Chronic Assessment and plan: Continue carvedilol with holding parameters. Qualifiers: Hypertension type: essential hypertension Qualified Code(s): I10 - Essential (primary) hypertension (10) Hyperlipidemia: Status: Chronic Assessment and plan: Rosuvastatin resumed, will need to watch for recurrent rhabdomyolysis but I believe this was related to his sepsis and not from his statin. Qualifiers: Hyperlipidemia type: unspecified Qualified Code(s): E78.5 - Hyperlipidemia, unspecified (11) Rhabdomyolysis: Status: Resolved (12) DVT prophylaxis: Status: Acute Assessment and plan: SC enoxaparin (13) Discharge planning issues: Status: Acute Assessment and plan: Full Code. plan for discharge tomorrow w/ outpatient infusion of Ancef 2 gm iv q12h through 03/20 Subjective Subjective Patient reports: no new complaints and feels better; denies shortness of breath Interval history since last seen: Patient was seen with his . I answered all of their questions to their satisfaction. I explained to them that I spoke w/ language and literature division chair, Dr. Lewis from [facility] who reviewed his TTE and even though his TTE demonstrated thickening of his MV leaflets and his aortic valve, he has no MR nor AI and the fact that his repeat blood cultures cleared so quickly makes endocarditis less likely. That said, the fact that he had MSSA bacteremia is enough to justify having a GM to rule out defiinitively any endocarditis. However, Dr Lewis feels that it does not need to be done emergently since he is improving. It would not lead to any surgical treatment of his valves and the only thing this will change is the duration of his antibiotic course. If there is no endocarditis then 4 weeks would probably be long enough but if he had endocarditis then 6 weeks would be needed and he may need continued oral antibiotics after that. I recommend discharge home w/ follow up infusions of Ancef 2 gm IV q12H for 4 weeks and possibly 6 weeks. He got his midline placed this afternoon. CM met with him and apparently he did not pay his copay during one of his prior home infusions from prior antibiotic home therapy for one of his DM foot infections, therefore he is not eligible for home antibiotic parenteral therapy. he will have his ancef tonight and tomorrow morning while an inpatient then he will return tomorrow night to start outpatient infusions. This will run through 03/20 but may need extended to 04/03 if he goes 6 weeks from his negative blood cultures from 02/20. Exam Narrative Exam Narrative: Bereket is sitting in his chair, NAD, A&O X 3 Lungs: clear Heart: RRR Abdomen: obese, soft, nontedner Legs/feet: 1+ edema, improving. ADA wraps are off. no cyanosis, left 1st MTP planar surface w/ calloused ulcer but no purulent drainage, right foot w/ small callous w/ dark spot in the center, nontender to palpation, no opening in the skin Objective Last Vital Signs Temp 34.9 C L 02/26/23 15:15 Pulse 53 L 02/26/23 15:15 Resp 18 02/26/23 15:15 BP 137/67 02/26/23 15:15 Pulse Ox 97 02/26/23 15:15 Laboratory Results - last 24 hr 02/26/23 02/26/23 06:20 06:20 WBC 9.11 RBC 3.53 L Hgb 10.6 L Hct 31.1 L MCV 88 MCH 30.0 MCHC 34.1 RDW 14.0 Plt Count 189 MPV 10.0 Immature Gran % 1.4 Neutrophils % 68.3 Lymphocytes % 15.8 Monocytes % 11.5 Eosinophils % 2.6 Basophils % 0.4 Nucleated RBC % 0.0 Absolute Neutrophils 6.21 Absolute Lymphocytes 1.44 Absolute Monocytes 1.05 H Absolute Eosinophils 0.24 Absolute Basophils 0.04 Sodium 138 Potassium 4.1 Chloride 100 Carbon Dioxide 30.5 Anion Gap 7.5 BUN 77 H Creatinine 1.9 H Est GFR (CKD-EPI 2020) 38.19 Glucose 118 H Calcium 9.2 C-Reactive Protein 7.78 H PAWSS Have you Been Recently Intoxicated or Drunk Within the Last 30 days?: No Have you Ever Experienced Previous Episodes of Alcohol Withdrawal?: No Have you ever Experienced Withdrawal Seizures?: No Have you ever Experienced Delirium Tremens(DT)s?: No Have you ever undergone Alcohol Rehabilitation Treatment (i.e, inpt ot outpatient treatment programs)?: No Have you ever Experienced Blackouts?: No Have you ever Combined Alcohol with other Downers within the last 90 days?: No Have you ever Combined Alcohol with any other Substance of Abuse during the last 90 days?: No Positive Blood Alcohol level on Presentation? [PCS.BAL]: No Evidence of Increased Autonomic Activity (i.e. HR>120, tremor, sweating, agitation, nausea)?: No Result: 0 Time Spent with Patient Time Spent with Patient: 35-49 minutes Time was spent: preparing to see the patient(eg.review tests), referring, communicating with other health multi care technician (Dr. Lewis, [facility]), indepentently interpreting results, counseling the patient (and his ) and care coordination
[2023-02-26] MEDS: Furosemide 80 MG TAB PO (17:49)
[2023-02-26 19:30] VITALS: BP 149/58; PULSE 60; RESP 18; TEMP 36.8; O2SAT 96
[2023-02-26] MEDS: Normal Saline Flush 10 ML SYR IVP (19:48)
[2023-02-26] MEDS: Rosuvastatin 20 MG TAB 40 MG PO (20:01)
[2023-02-26] MEDS: Doxycycline Hyclate 100 MG CAP PO (20:03)
[2023-02-26] MEDS: Enoxaparin 40 MG/0.4 ML SYR SC (21:34)
[2023-02-26] MEDS: hydrOXYzine HCL 25 MG TAB PO (21:35)
[2023-02-26 23:03] VITALS: BP 132/68; PULSE 55; RESP 20; TEMP 37.3; O2SAT 96
[2023-02-27 03:30] VITALS: BP 124/70; PULSE 56; RESP 20; TEMP 36.9; O2SAT 94
[2023-02-27 07:13] LABS: Anion Gap 6.4 mmol/L (3-11); CO2 31.6 mmol/L (21.0-32.0); CREATININE 2.3 mg/dL (0.70-1.30); Calcium 9.2 mg/dL (8.5-10.1); Chloride 98 mmol/L (98-107); Estimated GFR 30.36 (mL/min/1.73m2); Glucose 100 mg/dL (74-106); Potassium 4.5 mmol/L (3.5-5.1); Sodium 136 mmol/L (136-145)
[2023-02-27 07:17] LABS: BUN 84 mg/dL (7-18)
[2023-02-27 07:59] VITALS: BP 110/51; PULSE 93; RESP 18; TEMP 36.5; O2SAT 94
[2023-02-27] MEDS: Multivitamin TAB 1 TAB PO (08:42)
[2023-02-27] MEDS: Docusate Sodium 100 MG CAP PO (08:42)
[2023-02-27] MEDS: Senna TAB 1 TAB PO (08:42)
[2023-02-27] MEDS: Doxycycline Hyclate 100 MG CAP PO (08:42)
[2023-02-27] MEDS: Pregabalin 150 MG CAP PO (08:42)
[2023-02-27] MEDS: Aspirin E.C. 81 MG TABEC PO (08:42)
[2023-02-27] MEDS: Furosemide 80 MG TAB PO (08:42)
[2023-02-27] MEDS: Clopidogrel 75 MG TAB PO (08:43)
[2023-02-27] MEDS: Carvedilol 25 MG TAB PO (08:43)
[2023-02-27] MEDS: Sacubitril/Valsartan 24 mg/26 mg TAB 1 EACH PO (08:43)
[2023-02-27] MEDS: Insulin Glargine 300 UNITS/3 ML PEN 40 UNITS SC (08:44)
[2023-02-27] MEDS: ceFAZolin 2 GM/50 ML BAG IVPB (09:17)
[2023-02-27] MEDS: Insulin Aspart 300 UNITS/3 ML PEN SC ×3 (09:17→12:42)
[2023-02-27 11:42] LABS: C-Reactive Protein 7.56 mg/dL (0.0-0.3)
[2023-02-27 12:02] VITALS: BP 120/69; PULSE 59; RESP 16; TEMP 36.4; O2SAT 96
[2023-02-27 12:03] LABS: Procalcitonin 0.1 ng/mL
--- NOTE | 2023-02-27 12:03 | W.PM.DS.N ---
Date of service: 02/27/23 Time of Service: 12:03 DS: Diagnosis Discharge Diagnosis (1) Staphylococcus aureus bacteremia: Status: Acute (2) Diabetic foot infection: Status: Acute (3) Acute Lyme disease: Status: Acute (4) Congestive heart failure: (5) Acute kidney injury superimposed on chronic kidney disease: Status: Acute (6) Elevated troponin: Status: Acute (7) Coronary artery disease involving modoc coronary artery of modoc heart with unstable angina pectoris: Status: Chronic (8) Diabetes mellitus type 2, insulin dependent: Status: Acute Asessment and Plan: with neuropathy (9) Hypertension: Status: Chronic (10) Hyperlipidemia: Status: Chronic (11) Rhabdomyolysis: Status: Resolved (12) Obesity, morbid, BMI 40.0-49.9: Status: Acute (13) Chronic venous insufficiency of lower extremity: Status: Acute Discharge Plan Disposition Patient Disposition: Home Condition: Improving Discharge Details Reason For Visit: Lyme's Disease,Elevated tropin,Sepsis Admit Date/Time: 02/19/23 10:45 Admit Provider: Jamie Corona Attending Provider: Jamie Corona Primary Care Provider: Jarrod Schultz Hospital Course Hospital Course: Mr Melara is a 68 year old male with PMHx of IDDM2 with neuropathy and h/o prior amputation of 1st digit R foot, as well as h/o CAD s/p CABG, CHFpEF, CKD 3, PAD, who was admitted to [facility] hospitalist service on 02/19/23 with rigors and malaise after a finding a tick on himself. He presented with a bull's eye rash. He was started on empiric ceftriaxone to which doxycycline was then added while the tick panel was pending. He had mildly elevated troponins in setting of rhabdomyolysis, and this improved with combination of IV hydration and diuresis. His echocardiogram did not show wall motion abnormalities. He had a LVEF of 55%. His EKG showed an old 1st degree AV block. While Lyme carditis was initially considered, given that this AV block is old, this has now been ruled out. It is felt he did not have an ACS on this admission. Given rhabdomyolysis, Statin was initially held, but then resumed without incident during his admission. His blood cultures came back positive for MSSA. At that point, initially vancomycin was added to the regimen while speciation/sensitivities were pending, but then the antibiotic regimen was changed to cefazolin + doxycycline. Repeat blood cultures done on 02/20/23 were negative. This whitt the start date of his 4-6 week course of antibiotics. He will need at [facility], which we are arranging as outpatient with [facility]. There is evidence of thickened mitral leaflets, especially the tip of the anterior leaflet on his transthoracic echo, though no definite valvular vegetations were seen. As part of the workup of bacteremia due to reports of lower back pain, we obtained an MRI of lumbar spine to rule out an epidural abscess, which was negative. He does appear to have B foot cellulitis per MRI without evidence of abscess or osteomyelitis. For this cefazolin should be sufficient, but he is being referred to [facility] pod[facility]ry. The patient did have a waxing and waning kidney function on this admission, warranting us to intensify and to back off on his diuresis. In the end he is going home on his home furosemide dose. His last Cr is 2.3. Entresto was added to his regimen for better management of his CHF. He is being discharged home today with a midline and will be getting his cefazoline 2 grams Q12 hrs via our infusion room. He is being referred to [facility], cardiology, podiatry. He is medically stable for discharge. Care for patient as well as completion of his discharge summary on day of discharge took 60 minutes. Home Meds and New Rx's Prescriptions: New cefazolin in dextrose (iso-os) 2 gram/50 mL Piggyback 2 g IVPB Q12H Qty: 0 0RF doxycycline hyclate 100 mg Capsule 100 mg PO BID Qty: 10 0RF docusate sodium 100 mg Capsule 100 mg PO BID Qty: 60 0RF hydroxyzine HCl 25 mg Tablet 25 mg PO HS Qty: 30 0RF Entresto 24-26 mg Tablet 1 tab PO BID Qty: 60 0RF fluticasone propionate [Flonase Allergy Relief] 50 mcg/actuation spray,suspension 1 spray intranasal DAILY PRN (Reason: nasal congestion) Qty: 16 0RF Rx Instructions: administer into each nostril Continued rosuvastatin 40 mg tablet See Rx Instructions .ROUTE .COMPLEX Qty: 90 3RF Dose Instruction: TAKE ONE TABLET BY MOUTH EVERY DAY AT BEDTIME Rx Instructions: TAKE ONE TABLET BY MOUTH EVERY DAY AT BEDTIME triamcinolone acetonide 0.5 % ointment 1 applic Topical BID PRN (Reason: dermatitis) Qty: 80 1RF carvedilol 25 mg tablet 25 mg PO BID Qty: 180 3RF nitroglycerin 0.4 mg tablet, sublingual 0.4 mg SL Q5-15M PRN (Reason: chest pain) Qty: 25 0RF aspirin [Adult Aspirin Regimen] 81 mg tablet,delayed release (DR/EC) 81 mg PO DAILY (DME) BD Insulin Syringe 1 EACH syringe 1 ea Sub-Q QID Qty: 3 Rx Instructions: B/D INSULIN ULTRA-FINE 30GX0.3/ (DME) Aerochamber Plus Flow-Vu 1 EACH spacer 1 ea Miscellaneous PRN Qty: 1 0RF (DME) blood-glucose meter [FreeStyle Lite Meter] 1 EACH kit 1 ea Miscellaneous TID Qty: 1 0RF (DME) FreeStyle Lite Strips Strip 1 ea Miscellaneous QID Qty: 400 6RF Rx Instructions: 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 E11.42 (DME) FreeStyle Alfredo 2 [place] Misc See Rx Instructions .ROUTE .MEDSUPPLY Qty: 1 0RF Rx Instructions: As directed (DME) FreeStyle Alfredo 2 Sensor Kit See Rx Instructions .ROUTE .MEDSUPPLY Qty: 2 6RF Rx Instructions: As directed (DME) BD Regular Bevel Alpine 21 gauge x 1 1/2 needle 1 ea Miscellaneous QID Qty: 100 6RF Rx Instructions: BD U100 29g 1/2 with safety lock insulin syringes Dx E11.49 (DME) pen needle, diabetic [BD Ultra-Fine Short Pen Needle] 31 gauge x 5/16 needle See Rx Instructions .ROUTE .MEDSUPPLY Qty: 100 4RF Rx Instructions: check blood sugar qid clopidogrel 75 mg tablet 75 mg PO DAILY Qty: 90 3RF pregabalin 150 mg capsule 150 mg PO TID Qty: 90 5RF hydrocodone-acetaminophen 7.5-325 mg tablet 1 tab PO BID MDD 2 tabs PRN (Reason: back pain) Qty: 56 0RF multivitamin Tablet 1 tab PO DAILY acetaminophen 500 mg Tablet 1,000 mg PO Q6H PRN furosemide 80 mg tablet See Rx Instructions .ROUTE .COMPLEX Rx Instructions: per pt/: takes 80 mg in the morning + 80 mg in the afternoon PRN SOB Changed insulin aspart U-100 [Novolog FlexPen U-100 Insulin] 100 unit/mL (3 mL) insulin pen 1 - 50 unit Sub-Q AC Qty: 70 4RF insulin glargine [Basaglar KwikPen U-100 Insulin] 100 unit/mL (3 mL) insulin pen 40 unit subcut BID Qty: 90 3RF Discontinued chlorthalidone 25 mg tablet 25 mg PO DAILY Qty: 90 3RF Discharge Instructions Instructions: Doxycycline (By mouth), Cefazolin (By injection), Lyme Disease (ED), Sepsis (DC), Bacteremia (DC) Additional Instructions: Return to the hospital with any fever, bleeding, chest pain, or worsening shortness of breath. Follow up with infusion room for your cefazolin infusions twice daily at 8 am and 8 pm. Follow up with your PCP In 1-2 weeks. Follow up with [facility] cardiology for a transesophageal echocardiogram. Follow up with infectious diseases and with podiatry at [facility]. Stand Alone Forms: Nursing Discharge Form Referrals: CARDIOLOGY,[facility] [OTHER] - ([facility] Referral has been sent. Office will call you with appointment. ) INFECTIOUS,[facility] [OTHER] - (Referral has been sent. Office will call you to set up appointment.) Jarrod Schultz NP [Primary Care Provider] - 03/13/23 2:40 pm Lori Velasco [[facility] STAFF] - (Podiatry: B diabetic foot infections Referral has been sent. Office will call you to set up appointment. ) Activity:: Activity as Tolerated Equipment/Supplies:: No Equipment Needed Diet:: consistent carb heart healthy Discharge Orders Discharge Orders: Discharge Order (Routine); Ordered 02/27/23 Ordered By: Lilia Victor Discharge Data Discharge Date/Time-TO BE ENTERED AT DEPARTURE: 02/27/23 14:25 DS: Summary Time Spent with Patient providing and/or coordinating discharge services: Greater than 30 minutes Status at Discharge Functional status at discharge: independent ambulation Overall status at discharge: patient is progressing back to baseline Mental Status: mental status grossly normal Speech and Movement: speech and movement normal Mood: congruent mood Affect: normal affect Exam Narrative Exam Narrative: General: Pleasant middle-aged male who is A&Ox3, NAD HEENT: EOMI, MMM Heart: RRR, no m/r/g Lungs: CTAB Abdomen: soft, nontender, nondistended Extremities: 1+ BLE edema; B feet without erythema; decreased sensation, evidence of a healing wound 1st digit R foot, no obvious drainage; small blisters plantar surface R foot. Psych Mental Status: mental status grossly normal Speech and Movement: speech and movement normal Mood: congruent mood Affect: normal affect DS: Data Vitals/I&O Vitals and I&O: Vital Signs Temperature 36.5 C 02/27/23 07:59 Temperature Source Tympanic 02/27/23 07:59 Pulse 93 H 02/27/23 07:59 Pulse Rhythm Regular 02/27/23 09:07 Pulse 59 L 02/23/23 20:46 Respiratory Rate 18 02/27/23 07:59 Respiratory Effort Normal 02/27/23 09:07 Respiratory Depth Normal 02/27/23 09:07 Respiratory Pattern Normal 02/27/23 09:07 Blood Pressure 110/51 L 02/27/23 07:59 Blood Pressure Mean 81 02/21/23 07:57 Blood Pressure Position Supine 02/18/23 20:25 Pulse Oximetry 94 02/27/23 07:59 Oxygen Delivery Method Room Air 02/27/23 07:59 Oxygen Flow Rate 0 02/27/23 07:59 Pain Level 7 02/27/23 07:59 Comment BP called over radio 02/24/23 14:51 Intake & Output 02/26/23 02/27/23 02/27/23 23:59 11:59 23:59 Intake Total 600 / 650 400 / 400 Output Total 500 / 1600 Balance 100 / -950 400 / 400 Weight 141.85 kg Intake: IV 50 / 100 50 / 50 Oral 550 / 550 350 / 350 Output: Urine 500 / 1600 Other: Urine Color Yellow Urine Appearance Clear Clear Urine Odor None Data Completed and Pending Completed studies during hospitalization [Text1]: CXR 02/18/23: No acute pulmonary findings.Sternotomy wires again noted. CT head 02/18/23: No acute intracranial findings on this noninfused CT scan of the brain. US renal 02/19/23: 1. Mild renal cortical atrophy.? Otherwise unremarkable kidneys. 2. Large urinary bladder volume with a question of some debris in the base of the bladder.? The patient did not feel the need to void during the examination.? [place] spine MRI w/w/o contrast 02/20/23; 1. No evidence of discitis nor osteomyelitis, as per request.? No evidence of the dural nor paraspinal abscess. 2. Multilevel central spinal canal stenosis, this being most severe at L4-5 level and is due to developmental short AP dimensions of the pedicles at multiple levels as well as some annular bulging and facet arthropathy.? At L4-5 level this is compounded by mild degenerative anterolisthesis of L4 upon L5.? There is, however, no foraminal stenosis at this level as there is no disc height loss. 3. There is some vertical foraminal stenosis at L5-S1 level on the left side.? Lesser foraminal stenosis on the right side at this level due to slightly better preserved disc height on the right side at this level. CT R foot 02/22/23: First toe amputation.? No obvious osteomyelitis and no evidence of obvious soft tissue abscess.? There is, however, diffuse soft tissue edema and cellulitis pattern.? There is a of the middle cuneiform which extends to the articular surface of the 2nd tarsometatarsal joint. XR L foot 02/24/23: Findings as above but without obvious evidence of osteomyelitis.? If clinically indicated follow-up MRI can be performed. XR R foot 02/24/23: There is soft tissue swelling over the distal half of the foot, both dorsally and volar aspect. There has been amputation of the 1st-great toe at the mid metatarsal level.? No radiographic evidence of osteomyelitis at this level.? There is a deformity at the neck of the 5th metatarsal which is most probably posttraumatic-healed fracture site.? There is some increased density noted throughout the length of the 4th and 5th metatarsals are possibly significant.? Phalanges of the 2nd, 3rd, 4th, and 5th toes appear intact.? No erosions. MRI R lower extremity 02/24/23: 1. No evidence of osteomyelitis. 2. There cystic degenerative changes at multiple tarsometatarsal articulations. Also para-articular ganglion cyst evident off the lateral aspect of the articulation between the distal cuboid and base of the 5th metatarsal. Similar smaller finding at the calcaneocuboid joint. 3. Diffuse soft tissue edema. However, no evidence of obvious focal abscess. MRI L lower extremitiy 02/24/23: 1. No evidence of osteomyelitis. 2. Prominent soft tissue swelling without evidence of an obvious focal abscess. 3. Increased signal seen throughout the muscles of the foot consistent with element of myositis Echo 02/24/23: Moderate concentric left ventricular hypertrophy.? Normal left ventricular chamber size.? Ejection fraction is 55%.? No segmental wall motion abnormalities are identified The right ventricle is not well visualized.? The right atrium is not well visualized Left atrium is mildly dilated Aortic valve is sclerotic and probably trileaflet without stenosis or regurgitation Thickened mitral leaflets, in particular the tip of the anterior leaflet.? Mitral annular calcification Grossly normal tricuspid valve with mild regurgitation.? Estimated right ventricular systolic pressure is 26 mmHg No definite valvular vegetations identified.? Suggest GM for further evaluation Labs on day of discharge: Labs from last 24 hours 02/27/23 02/27/23 02/27/23 06:15 06:15 06:15 Sodium Potassium Chloride Carbon Dioxide Anion Gap BUN Creatinine Est GFR (CKD-EPI 2020) Glucose Calcium C-Reactive Protein 7.56 H Procalcitonin Pending Add-On Test Request Pending 02/27/23 06:15 Sodium 136 Potassium 4.5 Chloride 98 Carbon Dioxide 31.6 Anion Gap 6.4 BUN 84 H* Creatinine 2.3 H Est GFR (CKD-EPI 2020) 30.36 Glucose 100 Calcium 9.2 C-Reactive Protein Procalcitonin Add-On Test Request PFSH All Active Problems (Updated 02/27/23 @ 20:16 by Lilia Victor MD) Obesity, morbid, BMI 40.0-49.9 (Acute) Chronic diabetic ulcer of right foot determined by examination (Acute) Diabetic ulcer of right foot associated with diabetes mellitus due to underlying condition (Acute) Diabetic ulcer of toe of left foot (Acute) Chronic venous insufficiency of lower extremity (Acute) Bilateral lower extremities Chronic venous stasis dermatitis (Acute) Bilateral lower extremities Chronic acquired lymphedema (Acute) Bilateral lower extremities Gouty arthritis of hand (Acute) Staphylococcus aureus bacteremia (Acute) DVT prophylaxis (Acute) Acute kidney injury superimposed on chronic kidney disease (Acute) Gram-positive cocci bacteremia (Acute) Sepsis (Acute) Elevated troponin (Acute) SIRS (systemic inflammatory response syndrome) (Acute) Erythema migrans (Lyme disease) (Acute) Discharge planning issues (Acute) Elevated troponin (Acute) Acute Lyme disease (Acute) Peripheral arterial disease (Acute) Nail dystrophy (Acute) Chronic foot ulcer (Acute) Hyperkalemia (Acute 07/26/14) Cellulitis (Acute) Diabetic foot infection (Acute) Leg wound, left (Acute) Diabetic retinopathy (Acute ~12/2021) B/L MODERATE-01/17 Edema (Acute) Gout (Chronic) 08/2021-diagnosed by rheumatology at [facility]-probable gout tophi of hands Obesity (Chronic) Diabetes mellitus type 2, insulin dependent (Acute) with nephropathy Chronic kidney disease (CKD) (Chronic) 08/2021- Cr 1.7 Hand arthritis (Acute) Amputation of toe (Acute) Cellulitis of foot, right (Acute) Diabetes mellitus type 2, insulin dependent (Acute) Right heart failure (Acute) Diabetic peripheral neuropathy (Chronic) Diabetic peripheral angiopathy (Chronic) Hypertension (Chronic) Chronic pain syndrome (Chronic) low back pain, drug contract at [facility]-V PMS and drug screen on 08/1221-patient on chronic hydrocodone Coronary artery disease involving modoc coronary artery of modoc heart with unstable angina pectoris (Chronic 08/30/17) 08-24-2017 [facility] cardiac CATH: 3 vessel disease (LAD,LCx and RCA): coronary bypass sx pending Dyspnea on exertion (Chronic 12/16/13) negative nuclear stress test echocardiogram: normal/ EF 65%/no valvulopathy Cardiol.eval. : not ischemia related ([facility]) Peripheral autonomic neuropathy in disorders classified elsewhere (Chronic 09/15/14) Hyperlipidemia (Chronic) Medical History (Updated 02/27/23 @ 20:16 by Lilia Victor MD) Congestive heart failure Diabetic foot ulcer DM (diabetes mellitus) 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 secondary to diabetic ulcer, angiopathy Laceration of lower leg with foreign body Lymphedema Obesity Proliferative diabetic retinopathy of both eyes without macular edema associated with diabetes mellitus due to underlying condition (01/18/18) 01/18/18-[facility] [place]/31/[facility] Scrotal hematoma (07/26/14) A. S/p hydrocelectomy 07/24/14 Stroke (~2008) TIA (transient ischemic attack) Toe osteomyelitis, right s/p amputation. 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 Hydrocelectomy 07/24/2014 History of cataract removal with insertion of prosthetic lens History of hydrocelectomy (07/24/14) right S/P CABG x 3 (08/30/17) [facility] [place] 08-29-2017 : no fup needed S/P femoral-popliteal bypass surgery right. 03/2020 Family History Mother No problems noted. Father Diabetes Myocardial infarction Heart disease Sister Diabetes Social History Smoking/Tobacco Use Status: Former Tobacco Use Quit Date: 09/28/83 Tobacco: How many years used: 5 Smoking risk assessment performed?: Yes Alcohol Intake: current Alcohol Intake frequency: holidays/special occasions only Drug use: Occasionally Substance use type: marijuana Pets and animals: Yes Pets and animals: cat(s) and dog(s) What type of physical activity do you participate in: none Do you feel safe at home: Yes Do you feel safe in your relationship?: Yes Time Spent with Patient Time Spent with Patient: 45-69 minutes Time was spent: preparing to see the patient(eg.review tests), obtaining and/or reviewing separately otained hiistory, ordering medications,tests, procedures, referring, communicating with other health reproductive healthcare assistant, indepentently interpreting results, counseling the patient and care coordination
[2023-02-27 12:23] LABS: Lab Add On Test DONE
--- NOTE | 2023-02-27 14:33 | CMDISCH_ITS ---
Date of service: 02/27/23 Time of Service: 14:33 LACE Index Scoring Tool Questions: Length of Stay (in days): 7 - 13 Was the patient admitted via the E.D.?: Yes Comorbidities: Diabetes w/o Complication, Congestive Heart Failure and Liver or Renal Disease E.D. Visits: 0 Answers: Total Score: 13 Risk of Readmission: High Risk Care Management Discharge Plan Reason for Hospitalization: Lyme's Disease Discharge Plan: Bereket returned home today with a plan to return to the [facility] infusion room twice a day for at least four weeks. His will be providing transport via private vehicle. He will follow up with his PCP and discharge plan of care. He is happy to be going home. Patient/Family Education Needs: Review discharge instructions and limitations, discussion of self care needs including ask me three. Services Needed at Discharge: Infusion Therapy
--- NOTE | 2023-02-27 17:42 | PT.INDS ---
PT Notes Visit Reasons: Lyme's Disease,Elevated tropin,Sepsis Physical Therapy Inpatient Discharge Summary Date: 02/27/2023 Dates of Service: 02/19/2023 through 02/26/2023 This is a clinical summary of care provided for the duration of dates listed above. No charge was made in the completion of this documentation. Referring Doctor:? Lilia Victor MD PT Orders: PT CONSULT: Limited ability Precautions: Fall.? Standard.? Activity as tolerated. Patient Profile/Admitting Diagnosis:? Patient is an 68-year-old patient who presented to the ED on 02/18/2023 due to uncontrollable shaking and generalized weakness.? Patient was admitted? for management of acute lyme disease,? elevated troponin,? CAD,? CHF,? DM Type II,? CKD,? PAD,? Gout,? HTN,? chronic pain syndrome,? hyperlipidemia.? PMHX: All Active Problems?(Updated 02/18/23 @ 20:58 by Jamie Corona MD) Discharge planning issues (Acute) Elevated troponin (Acute) Acute Lyme disease (Acute) Peripheral arterial disease (Acute) Nail dystrophy (Acute) Chronic foot ulcer (Acute) Hyperkalemia (Acute 07/26/14) Cellulitis (Acute) Diabetic foot infection (Acute) Leg wound, left (Acute) Diabetic retinopathy (Acute ~12/2021) B/L MODERATE-01/17 Edema (Acute) Gout (Chronic) 08/2021-diagnosed by rheumatology at [facility]-probable? gout tophi of hands Obesity (Chronic) Diabetes mellitus type 2, insulin dependent (Acute) with nephropathy Chronic kidney disease (CKD) (Chronic) 08/2021- Cr 1.7 Hand arthritis (Acute) Amputation of toe (Acute) Cellulitis of foot, right (Acute) Diabetes mellitus type 2, insulin dependent (Acute) Right heart failure (Acute) Diabetic peripheral neuropathy (Chronic) Diabetic peripheral angiopathy (Chronic) Hypertension (Chronic) Chronic pain syndrome (Chronic) low back pain, drug contract at [facility]-V PMS and drug screen on 08/1221-patient on chronic hydrocodone Coronary artery disease involving [place] coronary artery of [place] heart with unstable angina pectoris (Chronic 08/30/17) 08-24-2017 [facility] [place] cardiac CATH: 3 vessel disease (LAD,LCx and RCA): coronary bypass sx pending Dyspnea on exertion (Chronic 12/16/13) negative nuclear stress test echocardiogram: normal/ EF 65%/no valvulopathy Cardiol.eval. :? not ischemia related ([facility]) Peripheral autonomic neuropathy in disorders classified elsewhere (Chronic 09/15/14) Hyperlipidemia (Chronic) Medical History? Congestive heart failure Diabetic foot ulcer DM (diabetes mellitus) 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 secondary to diabetic ulcer, angiopathy Laceration of lower leg with foreign body Lymphedema Obesity Proliferative diabetic retinopathy of both eyes without macular edema associated with diabetes mellitus due to underlying condition (01/18/18) 01/18/18-[facility] 01/31/19-[facility] Scrotal hematoma (07/26/14) A.? S/p hydrocelectomy 07/24/14Stroke (~2008) TIA (transient ischemic attack) Surgical History? H/O surgical procedure A.? Hydrocelectomy 07/24/2014 History of cataract removal with insertion of prosthetic lens History of hydrocelectomy (07/24/14) right S/P CABG x 3 (08/30/17) [facility] [place] 08-29-2017? : no fup needed Social History/Home Situation: Lives with in a private home.? Independent with all aspects of ADLs prior to admission.? Occasionally uses SPC outdoors.? Equipment Owned/DME: SPC Subjective: NT. See most recent AUTOMATIC PAINT SPRAYER OPERATOR notes. Objective: General Observation: NT. See most recent AUTOMATIC PAINT SPRAYER OPERATOR notes. Mental Status: NT. See most recent AUTOMATIC PAINT SPRAYER OPERATOR notes. Pain: NT. See most recent AUTOMATIC PAINT SPRAYER OPERATOR notes. Vital Signs: NT. See most recent AUTOMATIC PAINT SPRAYER OPERATOR notes. ROM: Right Upper Extremity: ? Shoulder Flexion WFL. Shoulder abduction WFL. Elbow flexion WFL. Wrist flexion WFL. Functional opening and closing of hand WFL. Left Upper Extremity:? Shoulder Flexion WFL. Shoulder abduction WFL. Elbow flexion WFL. Wrist flexion WFL. Functional opening and closing of hand WFL. Right Lower Extremity: Hip flexion WFL. Hip abduction WFL. Knee flexion WFL. Ankle dorsiflexion WFL. Ankle plantarflexion WFL. Left Lower Extremity: Hip flexion WFL.? Hip abduction WFL. Knee flexion WFL.? Ankle dorsiflexion WFL.? Ankle plantarflexion WFL. Strength: Right Upper Extremity: Shoulder flexors 4/5. Shoulder abductors 4/5. Elbow flexors 5/5. Elbow extensors 5/5. Mohs Surgeon/General Dermatologist strong. Left Upper Extremity: Shoulder flexors 4/5. Shoulder abductors 4/5. Elbow flexors 5/5. Elbow extensors 5/5. Mohs Surgeon/General Dermatologist strong. Right Lower Extremity: Hip flexors 4/5. Hip abductors 4/5. Knee flexors 5/5. Knee extensors 4/5. Ankle dorsiflexors 4/5. Ankle plantarflexors 5/5. Left Lower Extremity: Hip flexors 4/5. Hip abductors 4/5. Knee flexors 5/5. Knee extensors 4/5. Ankle dorsiflexors 4/5. Ankle plantarflexors 5/5. Bed Mobility/Transfers: Sit to stand independent Stand to sit independent Bed to bedside commode independent Bedside commode to bed independent Bed to reclining chair independent Reclining chair to bed independent Gait: Instructed patient with level surface ambulation of 300 feet requiring FWW independently.? Able to pace self and stop as he needs to based on his breathing and low back pain.? Stairs: Independent while holding onto B rails. Balance: Static Sitting: Normal Dynamic Sitting: Normal Static Standing: Good Dynamic Standing: Fair Special Tests: Mobility Limitations Standardized Measure [facility] 6 clicks Basic Mobility Inpatient Short Form: Raw Score: 24? CMS Score: 0% deficit? ? ? Assessment: Now modified independent with level surface ambulation and will be discontinued from services at highest mobility level using FWW.? senior engineering manager will be updated of said D/C plan tomorrow morning. Goals: Goals X1 week 1. Supine-Sit independent MET 2. Sit-Supine independent MET 3. Sit-Stand independent MET 4. Stand-Sit independent with no AD NOT MET,? DISCHARGE GOAL,? patient at highest mobility level using FWW due to preexisting cardiac issue and GIBSON 5. Bed-Chair independent with no AD NOT MET,? DISCHARGE GOAL,? patient at highest mobility level using FWW due to preexisting cardiac issue and GIBSON 6. Chair-Bed independent with no AD NOT MET,? DISCHARGE GOAL,? patient at highest mobility level using FWW due to preexisting cardiac issue and GIBSON 7. Independent gait on level surface with use of no AD for at least 300 feet without report of pain nor dyspnea NOT MET,? DISCHARGE GOAL,? patient at highest mobility level using FWW due to preexisting cardiac issue and GIBSON 8. Independent stair negotiation while holding onto B rails for at least 3 steps without report of pain nor dyspnea MET 9. Independent with home exercise program NOT MET,? copy of HEP to be provided prior to D/C 10. Good static and dynamic standing balance/tolerance NOT MET due to toe amputation,? now at highest mobility level Plan of Care/Treatment Plan: D/C form services as soon as HEP education is made and notification is given to CM. DISCHARGE RECOMMENDATIONS: [] ? Home with no services [] [X] ? Home with services.? Patient will benefit from home health PT services in order to progress mobility level using least restrictive assistive ambulatory device, assess home safety, identify additional equipment needs, and establish a functional maintenance program that will increase ability of patient to remain at home. [] ? Home with outpatient PT [] [] ? SNF for continued rehabilitation [] [] ? Frothing Machine Operator Care [] [] ? SNF versus LTC based on ability to participate and progress [] TREATMENT CODE/TIME: NC Thank you for the opportunity to participate in the care of this patient. Kimberly Enciso PT, DPT, CLT [facility] [place], [place]
== END 2023-02-27 14:25 | disposition home or self-care (01) | DRG 867 ==
LOC: ER 18:48 → ICU 19:42 → MS 02-21 10:09
PROVIDERS: Internal Medicine; Registered Nurse Emergency; Admitting Provider Family Medicine; Emergency Provider Physician Assistant; PCP Nurse Practitioner Family; Visit Provider Family Medicine
DX: A69.20 Lyme disease, unspecified (principal); A41.01 Sepsis due to Methicillin susceptible Staphylococcus aureus; I13.0 Hypertensive heart and chronic kidney disease with heart failure and stage 1 through stage 4 chronic kidney disease, or unspecified chronic kidney disease; I25.110 Atherosclerotic heart disease of native coronary artery with unstable angina pectoris; N17.9 Acute kidney failure, unspecified; M62.82 Rhabdomyolysis; Z68.42 Body mass index [BMI] 45.0-49.9, adult; L03.115 Cellulitis of right lower limb; L97.528 Non-pressure chronic ulcer of other part of left foot with other specified severity; A69.29 Other conditions associated with Lyme disease; E11.22 Type 2 diabetes mellitus with diabetic chronic kidney disease; I50.9 Heart failure, unspecified; Z79.4 Long term (current) use of insulin; N18.9 Chronic kidney disease, unspecified; I73.9 Peripheral vascular disease, unspecified; M10.9 Gout, unspecified; G89.4 Chronic pain syndrome; E78.5 Hyperlipidemia, unspecified; B95.61 Methicillin susceptible Staphylococcus aureus infection as the cause of diseases classified elsewhere; Z89.422 Acquired absence of other left toe(s); I89.0 Lymphedema, not elsewhere classified; E66.01 Morbid (severe) obesity due to excess calories; E11.42 Type 2 diabetes mellitus with diabetic polyneuropathy; Z95.1 Presence of aortocoronary bypass graft; E11.319 Type 2 diabetes mellitus with unspecified diabetic retinopathy without macular edema; M48.07 Spinal stenosis, lumbosacral region; I44.0 Atrioventricular block, first degree; R74.8 Abnormal levels of other serum enzymes; E11.628 Type 2 diabetes mellitus with other skin complications; Z86.73 Personal history of transient ischemic attack (TIA), and cerebral infarction without residual deficits; I87.2 Venous insufficiency (chronic) (peripheral); S92.231A Displaced fracture of intermediate cuneiform of right foot, initial encounter for closed fracture; X58.XXXA Exposure to other specified factors, initial encounter
CPT/HCPCS: 36410; 36415; 72158; 76770; 80048; 80053; 82550; 84145; 85652; 87040; 87077; 87798; 93005; 93306; 96365; 96367; 96375; 97110; 97116; 97162; 97530; 99222; 99231; 99232; 99285; J1650; J3490; 70450; 71046; 73630; 73700; 73718; 80202; 81003; 81015; 83036; 83605; 83735; 83880; 84484; 85025; 85610; 85730; 86140; 86618; 87186; 93010; 99223; 99233; 99239; J0690; J1940; J2060; J2405; J7512

== ENCOUNTER 2023-03-21 00:20 | Outpatient (RCR) | payer MEDICARE, SELFPAY ==
--- NOTE | 2023-02-27 17:06 | PTTR_ITS ---
Date of service: 02/27/23 Time of Service: 08:50 PT Notes Visit Reasons: ANCEF 2GM Inpatient Physical Therapy Treatment Note [facility] Date: 02/27/23 PRECAUTIONS: Standard, activity as tolerated SUBJECTIVE: Patient anxious about IV infusion antibiotics and whether he will be able to get here twice a day. Also eager to get out of the hospital. OBJECTIVE: PAIN: none reported THEREX: Reviewed patient's HEP as follows: Access Code: [email or web address] URL: [email or web address] Date: 02/27/2023 Prepared by: Kathie Torres Exercises - Eccentric Squat? - 1 x daily - 7 x weekly - 3 sets - 10 reps - Lateral Step Down? - 1 x daily - 7 x weekly - 3 sets - 10 reps - Supine Bridge with Spinal Articulation? - 1 x daily - 7 x weekly - 3 sets - 10 reps - Standing Hip Abduction with Counter Support? - 1 x daily - 7 x weekly - 3 sets - 10 reps Patient demonstrates understanding of the purpose of each exercise and the ability to perform each safely and effectively ASSESSMENT: Patient tolerates therapy well PLAN: Patient going home today TREATMENT CODE/TIME: 47713 Ther Ex 19 minutes beginning at 8:50
[2023-02-27] MEDS: Normal Saline Flush 10 ML SYR IVP (20:05)
[2023-02-27] MEDS: ceFAZolin 2 GM/50 ML BAG IVPB (20:06)
[2023-02-28] MEDS: ceFAZolin 2 GM/50 ML BAG IVPB ×2 (08:13→19:59)
[2023-02-28] MEDS: Normal Saline Flush 10 ML SYR IVP ×2 (08:18→19:59)
[2023-03-01] MEDS: ceFAZolin 2 GM/50 ML BAG IVPB ×2 (08:16→19:53)
[2023-03-01] MEDS: Normal Saline Flush 10 ML SYR IVP (08:17)
[2023-03-02] MEDS: Normal Saline Flush 10 ML SYR IVP (08:19)
[2023-03-02] MEDS: ceFAZolin 2 GM/50 ML BAG IVPB ×2 (08:19→20:00)
[2023-03-02 19:57] VITALS: BP 147/64; PULSE 63; RESP 18; TEMP 36.7; O2SAT 96
[2023-03-02 20:43] VITALS: BP 144/73; PULSE 58; RESP 20; TEMP 36.1; O2SAT 97
[2023-03-03] MEDS: ceFAZolin 2 GM/50 ML BAG IVPB ×2 (08:10→20:20)
[2023-03-03] MEDS: Normal Saline Flush 10 ML SYR IVP ×2 (08:11→20:21)
[2023-03-03 20:22] VITALS: BP 156/71; PULSE 73; RESP 20; TEMP 36.4; O2SAT 95
[2023-03-03 21:09] VITALS: BP 132/77; PULSE 66; RESP 20; TEMP 36.4; O2SAT 95
[2023-03-04] MEDS: ceFAZolin 2 GM/50 ML BAG IVPB ×2 (08:17→20:21)
[2023-03-04] MEDS: Normal Saline Flush 10 ML SYR IVP (08:17)
[2023-03-04 20:19] VITALS: BP 162/79; PULSE 72; RESP 18; TEMP 36.6; O2SAT 100
[2023-03-05] MEDS: ceFAZolin 2 GM/50 ML BAG IVPB ×2 (08:13→19:56)
[2023-03-05] MEDS: Normal Saline Flush 10 ML SYR IVP ×2 (08:18→19:56)
[2023-03-06] MEDS: ceFAZolin 2 GM/50 ML BAG IVPB ×2 (08:14→19:55)
[2023-03-06] MEDS: Normal Saline Flush 10 ML SYR IVP ×2 (08:15→19:56)
[2023-03-06 08:54] LABS: Abs Immature Grans 0.01 10^3/uL (0.0-0.06); Absolute Basophil Count 0.05 10^3/uL (0.0-0.2); Absolute Eosinophil Count 0.24 10^3/uL (0.0-0.7); Absolute Lymphocyte Count 1.05 10^3/uL (1.2-3.4); Absolute Monocyte Count 0.57 10^3/uL (0.1-0.8); Absolute Neutrophil Count 3.35 10^3/uL (1.2-6.7); Basophils % 0.9; Eosinophils % 4.6; HGB 10.1 g/dL (13.5-17.5); Immature Grans % 0.2; Lymphocytes % 19.9; MCH 29.6 pg (27.0-33.0); MCHC 32.6 % (32.0-36.0); MCV 91 fL (80-95); MPV 10.1 fL (8.0-11.0); Monocytes % 10.8; Neutrophils % 63.6; Platelet Count 176 10^3/uL (130-400); RBC 3.41 10^6/uL (4.36-5.78); RDW 13.5 % (11.8-14.1); RDW-SD 45.3 fL; WBC 5.27 10^3/uL (4.4-10.8)
[2023-03-06 09:05] LABS: Anion Gap 5.8 mmol/L (3-11); C-Reactive Protein 4.18 mg/dL (0.0-0.3); CO2 33.2 mmol/L (21.0-32.0); CREATININE 2.6 mg/dL (0.70-1.30); Calcium 8.9 mg/dL (8.5-10.1); Chloride 99 mmol/L (98-107); Estimated GFR 26.21 (mL/min/1.73m2); Glucose 128 mg/dL (74-106); Potassium 4.3 mmol/L (3.5-5.1); Sodium 138 mmol/L (136-145)
[2023-03-06 09:13] LABS: BUN 86 mg/dL (7-18)
[2023-03-06] MEDS: Normal Saline 1,000 ML 20 ML IV (19:56)
[2023-03-06 20:02] VITALS: BP 135/74; PULSE 75; RESP 18; TEMP 36.8; O2SAT 95
[2023-03-07] MEDS: ceFAZolin 2 GM/50 ML BAG IVPB ×2 (08:20→20:06)
[2023-03-07] MEDS: Normal Saline Flush 10 ML SYR IVP ×3 (08:21→20:48)
[2023-03-08] MEDS: Normal Saline Flush 10 ML SYR IVP (08:15)
[2023-03-08] MEDS: ceFAZolin 2 GM/50 ML BAG IVPB ×2 (08:15→19:55)
[2023-03-08 19:56] VITALS: BP 158/87; PULSE 61; RESP 15; TEMP 36.1; O2SAT 98
[2023-03-09] MEDS: Normal Saline Flush 10 ML SYR IVP ×2 (08:14→20:21)
[2023-03-09] MEDS: ceFAZolin 2 GM/50 ML BAG IVPB ×2 (08:14→20:21)
[2023-03-09 08:55] LABS: ALT 7 U/L (16-63); AST 16 U/L (15-37); Albumin 3.2 g/dL (3.4-5.0); Alkaline Phosphatase 84 U/L (46-116); Anion Gap 6.8 mmol/L (3-11); Bilirubin, Total 0.4 mg/dL (0.2-1.0); CO2 30.2 mmol/L (21.0-32.0); CREATININE 2.9 mg/dL (0.70-1.30); Calcium 9.4 mg/dL (8.5-10.1); Chloride 100 mmol/L (98-107); Estimated GFR 22.99 (mL/min/1.73m2); Glucose 100 mg/dL (74-106); Potassium 4.9 mmol/L (3.5-5.1); Sodium 137 mmol/L (136-145); Total Protein 7.6 g/dL (6.4-8.2)
[2023-03-09 08:59] LABS: BUN 95 mg/dL (7-18)
[2023-03-10] MEDS: ceFAZolin 2 GM/50 ML BAG IVPB ×2 (08:01→19:45)
[2023-03-10] MEDS: Normal Saline Flush 10 ML SYR IVP (08:18)
[2023-03-11] MEDS: ceFAZolin 2 GM/50 ML BAG IVPB ×2 (08:00→19:58)
[2023-03-11] MEDS: Normal Saline Flush 10 ML SYR IVP ×2 (08:00→19:59)
[2023-03-12] MEDS: ceFAZolin 2 GM/50 ML BAG IVPB ×2 (08:02→19:50)
[2023-03-12] MEDS: Normal Saline Flush 10 ML SYR IVP ×2 (19:50→20:35)
[2023-03-12 19:57] VITALS: BP 138/84; PULSE 86; RESP 18; TEMP 36.6; O2SAT 96
[2023-03-13] MEDS: Normal Saline Flush 10 ML SYR IVP ×3 (07:55→19:45)
[2023-03-13] MEDS: ceFAZolin 2 GM/50 ML BAG IVPB ×2 (07:55→19:29)
[2023-03-13 08:34] LABS: Abs Immature Grans 0.02 10^3/uL (0.0-0.06); Absolute Basophil Count 0.03 10^3/uL (0.0-0.2); Absolute Eosinophil Count 0.33 10^3/uL (0.0-0.7); Absolute Neutrophil Count 2.22 10^3/uL (1.2-6.7); Basophils % 0.8; Eosinophils % 8.3; HCT 34.2 % (40.0-50.0); Immature Grans % 0.5; Lymphocytes % 22.5; MCHC 32.2 % (32.0-36.0); MCV 93 fL (80-95); MPV 10.5 fL (8.0-11.0); Monocytes % 12.5; Neutrophils % 55.4; Platelet Count 140 10^3/uL (130-400); RBC 3.67 10^6/uL (4.36-5.78); RDW 13.8 % (11.8-14.1); RDW-SD 46.7 fL
[2023-03-13 08:57] LABS: ALT 6 U/L (16-63); AST 16 U/L (15-37); Albumin 3.4 g/dL (3.4-5.0); Alkaline Phosphatase 97 U/L (46-116); Anion Gap 11.8 mmol/L (3-11); BUN 78 mg/dL (7-18); Bilirubin, Total 0.4 mg/dL (0.2-1.0); CO2 28.2 mmol/L (21.0-32.0); CREATININE 2.7 mg/dL (0.70-1.30); Calcium 9.3 mg/dL (8.5-10.1); Chloride 100 mmol/L (98-107); Estimated GFR 25.05 (mL/min/1.73m2); Glucose 185 mg/dL (74-106); Sodium 140 mmol/L (136-145); Total Protein 7.8 g/dL (6.4-8.2)
[2023-03-14 07:53] VITALS: BP 138/84; PULSE 86; RESP 18; TEMP 36.6; O2SAT 96
[2023-03-14] MEDS: Normal Saline Flush 10 ML SYR IVP (08:05)
[2023-03-14] MEDS: ceFAZolin 2 GM/50 ML BAG IVPB ×2 (08:05→19:32)
[2023-03-15] MEDS: ceFAZolin 2 GM/50 ML BAG IVPB ×2 (07:56→20:05)
[2023-03-15] MEDS: Normal Saline Flush 10 ML SYR IVP (07:57)
[2023-03-15 19:59] VITALS: BP 195/61; PULSE 58; RESP 16; TEMP 36.7; O2SAT 98
[2023-03-16] MEDS: ceFAZolin 2 GM/50 ML BAG IVPB ×2 (07:58→20:04)
[2023-03-16 20:03] VITALS: BP 106/69; PULSE 74; RESP 18; TEMP 36.6; O2SAT 95
[2023-03-17] MEDS: Normal Saline Flush 10 ML SYR IVP ×2 (07:58→20:30)
[2023-03-17] MEDS: ceFAZolin 2 GM/50 ML BAG IVPB ×2 (07:58→20:08)
[2023-03-18] MEDS: ceFAZolin 2 GM/50 ML BAG IVPB ×2 (08:00→19:53)
[2023-03-18] MEDS: Normal Saline Flush 10 ML SYR IVP (08:01)
[2023-03-19] MEDS: ceFAZolin 2 GM/50 ML BAG IVPB ×2 (07:50→19:48)
[2023-03-19] MEDS: Normal Saline Flush 10 ML SYR IVP ×2 (08:28→19:48)
[2023-03-20] MEDS: ceFAZolin 2 GM/50 ML BAG IVPB ×2 (07:58→19:39)
[2023-03-20] MEDS: Normal Saline Flush 10 ML SYR IVP ×2 (07:59→19:39)
[2023-03-20 08:22] LABS: Abs Immature Grans 0.02 10^3/uL (0.0-0.06); Absolute Basophil Count 0.03 10^3/uL (0.0-0.2); Absolute Eosinophil Count 0.33 10^3/uL (0.0-0.7); Absolute Lymphocyte Count 0.53 10^3/uL (1.2-3.4); Absolute Monocyte Count 0.59 10^3/uL (0.1-0.8); Absolute Neutrophil Count 3.67 10^3/uL (1.2-6.7); Basophils % 0.6; Eosinophils % 6.4; HGB 11.8 g/dL (13.5-17.5); Immature Grans % 0.4; Lymphocytes % 10.3; MCHC 34.7 % (32.0-36.0); MCV 87 fL (80-95); MPV 10.7 fL (8.0-11.0); Monocytes % 11.4; Neutrophils % 70.9; Platelet Count 138 10^3/uL (130-400); RBC 3.93 10^6/uL (4.36-5.78); RDW 13.4 % (11.8-14.1); RDW-SD 41.8 fL; WBC 5.17 10^3/uL (4.4-10.8)
[2023-03-20 08:35] LABS: Anion Gap 8.3 mmol/L (3-11); C-Reactive Protein 2.72 mg/dL (0.0-0.3); CO2 31.7 mmol/L (21.0-32.0); CREATININE 2.5 mg/dL (0.70-1.30); Calcium 9.2 mg/dL (8.5-10.1); Chloride 95 mmol/L (98-107); Estimated GFR 27.47 (mL/min/1.73m2); Glucose 282 mg/dL (74-106); Potassium 3.8 mmol/L (3.5-5.1); Sodium 135 mmol/L (136-145)
[2023-03-20 08:52] LABS: BUN 81 mg/dL (7-18)
[2023-03-20 19:40] VITALS: BP 132/74; PULSE 72; RESP 18; TEMP 36.7; O2SAT 98
[2023-03-21] MEDS: Normal Saline Flush 10 ML SYR IVP ×2 (08:19→19:50)
[2023-03-21] MEDS: ceFAZolin 2 GM/50 ML BAG IVPB ×2 (08:20→19:50)
[2023-03-21 21:52] VITALS: BP 130/75; PULSE 75; RESP 18; TEMP 36.5; O2SAT 96
== END 2023-03-27 23:59 | disposition home or self-care (01) ==
LOC: INF 00:20
PROVIDERS: PCP Nurse Practitioner Family; Visit Provider Internal Medicine
DX: R78.81 Bacteremia (principal); M62.82 Rhabdomyolysis
CPT/HCPCS: 36415; 36591; 36592; 80048; 80053; 96365; 96366; 85025; 86140; J0690

== ENCOUNTER → 2023-04-02 10:33 | Outpatient (BNVA) | payer MEDICARE, SELFPAY | PROVIDERS: PCP Nurse Practitioner Family; Referring Provider Nurse Practitioner Family; Visit Provider Internal Medicine Cardiovascular Disease | DX: R42 Dizziness and giddiness (principal); L30.9 Dermatitis, unspecified; Z95.1 Presence of aortocoronary bypass graft; N18.9 Chronic kidney disease, unspecified; E11.22 Type 2 diabetes mellitus with diabetic chronic kidney disease; I12.9 Hypertensive chronic kidney disease with stage 1 through stage 4 chronic kidney disease, or unspecified chronic kidney disease | CPT/HCPCS: 99214 ==

== ENCOUNTER 2023-04-11 15:28 | Emergency (ER) | payer MEDICARE, SELFPAY ==
[2023-04-11] VITALS (42 sets, daily range): BP systolic 90–130; BP diastolic 43–97; PULSE 0–143; RESP 16; O2SAT 92–98
--- NOTE | 2023-04-11 15:49 | ED.GENADUL_ITS ---
Discharge Plan Discharge Details Chief Complaint: Dizzy/Sync Primary Care Provider: Jarrod Schultz ED Provider: Jayme Villagomez Home Meds and New Rx's Prescriptions: No Action rosuvastatin 40 mg tablet See Rx Instructions .ROUTE .COMPLEX Qty: 90 3RF Dose Instruction: TAKE ONE TABLET BY MOUTH EVERY DAY AT BEDTIME Rx Instructions: TAKE ONE TABLET BY MOUTH EVERY DAY AT BEDTIME nitroglycerin 0.4 mg tablet, sublingual 0.4 mg SL Q5-15M PRN (Reason: chest pain) Qty: 25 0RF aspirin [Adult Aspirin Regimen] 81 mg tablet,delayed release (DR/EC) 81 mg PO DAILY cyclobenzaprine 10 mg tablet 10 mg PO TID PRN (Reason: muscle spasm) Qty: 60 0RF colchicine 0.6 mg tablet 0.6 mg PO BID Farxiga 5 mg tablet 5 mg PO DAILY dapagliflozin propanediol 5 mg tablet 5 mg PO DAILY Qty: 90 3RF docusate sodium [Colace] 100 mg capsule 100 mg PO DAILY Qty: 90 3RF allopurinol 100 mg tablet 50 mg PO DAILY triamcinolone acetonide 0.5 % ointment 1 applic Topical BID PRN (Reason: dermatitis) carvedilol 12.5 mg tablet 12.5 mg PO BID Qty: 180 3RF Rx Instructions: must administer with a meal/food allopurinol 100 mg tablet 100 mg PO DAILY Rx Instructions: 0.5 Tablets Po QD Farxiga 5 mg tablet 5 mg PO DAILY (DME) BD Insulin Syringe 1 EACH syringe 1 ea Sub-Q QID Qty: 3 Rx Instructions: B/D INSULIN ULTRA-FINE 30GX0.3/ (DME) Aerochamber Plus Flow-Vu 1 EACH spacer 1 ea Miscellaneous PRN Qty: 1 0RF (DME) blood-glucose meter [FreeStyle Lite Meter] 1 EACH kit 1 ea Miscellaneous TID Qty: 1 0RF (DME) FreeStyle Lite Strips Strip 1 ea Miscellaneous QID Qty: 400 6RF Rx Instructions: 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 E11.42 (DME) FreeStyle Alfredo 2 [place] Misc See Rx Instructions .ROUTE .MEDSUPPLY Qty: 1 0RF Rx Instructions: As directed (DME) FreeStyle Alfredo 2 Sensor Kit See Rx Instructions .ROUTE .MEDSUPPLY Qty: 2 6RF Rx Instructions: As directed (DME) BD Regular Bevel Tonica 21 gauge x 1 1/2 needle 1 ea Miscellaneous QID Qty: 100 6RF Rx Instructions: BD U100 29g 1/2 with safety lock insulin syringes Dx E11.49 (DME) pen needle, diabetic [BD Ultra-Fine Short Pen Needle] 31 gauge x 5/16 needle See Rx Instructions .ROUTE .MEDSUPPLY Qty: 100 4RF Rx Instructions: check blood sugar qid clopidogrel 75 mg tablet 75 mg PO DAILY Qty: 90 3RF pregabalin 150 mg capsule 150 mg PO TID Qty: 90 5RF hydrocodone-acetaminophen 7.5-325 mg tablet 1 tab PO BID MDD 2 tabs PRN (Reason: back pain) Qty: 56 0RF multivitamin Tablet 1 tab PO DAILY acetaminophen 500 mg Tablet 1,000 mg PO Q6H PRN furosemide 80 mg tablet See Rx Instructions .ROUTE .COMPLEX Rx Instructions: per pt/: takes 80 mg in the morning + 80 mg in the afternoon PRN SOB docusate sodium 100 mg Capsule 100 mg PO BID Qty: 60 0RF hydroxyzine HCl 25 mg Tablet 25 mg PO HS Qty: 30 0RF Entresto 24-26 mg Tablet 1 tab PO BID Qty: 60 0RF insulin aspart U-100 [Novolog FlexPen U-100 Insulin] 100 unit/mL (3 mL) insulin pen 1 - 50 unit Sub-Q AC Qty: 70 4RF insulin glargine [Basaglar KwikPen U-100 Insulin] 100 unit/mL (3 mL) insulin pen 40 unit subcut BID Qty: 90 3RF fluticasone propionate [Flonase Allergy Relief] 50 mcg/actuation spray,suspension 1 spray intranasal DAILY PRN (Reason: nasal congestion) Qty: 16 0RF Rx Instructions: administer into each nostril Medical Decision Making Patient presents to the emergency room with a normal blood pressure. He states he has been having episodes of hypotension intermittently for the past few weeks. CBC was obtained to rule out any anemia. BMP confirmed elevated BUN and elevated creatinine. His baseline creatinine is 2.5 he is at 4.3 today. Explained to patient that Some of his hypotension may be volume related and that he will need IV fluids to replete his intra vascular state. Given his past medical history I recommend that he be admitted observation but he is adamantly refusing to be admitted. He will be given IV fluids in the emergency department with strict instruction follow-up with his waffle machine operator and primary care doctor on Thursday. HPI General Date/Time Provider Initiated Documentation: 04/11/23 15:48 . HPI Narrative: 68-year-old gentleman presented to the emergency room with a chief complaint of dips in his blood pressure and are associated with some tremors and some muscle twitching. These have been going on for several weeks now. The patient has actually been seen and discussed the surgical with a PCP as well as his waffle machine operator. It appears that his beta-josefina dose was decreased approximately 5 days ago. No other medical adjustments. The patient denies any headaches. No chest pain. No shortness of breath. No abdominal pain. No weight gain or weight loss. No nausea no vomiting. No fevers no chills. No dysuria or change in urine output. No edema of the lower extremities. Related Data Home Medications Medication Instructions Recorded Confirmed insulin syringe-needle U-100 1 mL ##3 10/14/16 04/06/23 26 x 1/2 (BD Insulin Syringe) inhalational spacing device #1 unit 03/15/18 04/06/23 (Aerochamber Plus Flow-Vu) blood-glucose meter (FreeStyle ##1 05/21/18 04/06/23 Lite Meter kit) blood sugar diagnostic (FreeStyle #400 strips 09/15/19 04/06/23 Lite Strips) acetaminophen 500 mg tablet 1,000 mg PO Q6H PRN 06/14/20 04/06/23 multivitamin 1 tab PO DAILY 06/14/20 04/06/23 flash glucose scanning reader #1 ea 04/09/21 04/06/23 (FreeStyle Alfredo 2 [place]) flash glucose sensor (FreeStyle #2 ea 04/09/21 04/06/23 Alfredo 2 Sensor kit) needle (disp) 21 G 21 gauge x 1 #100 ea 04/12/21 04/06/23 1/2 (BD Regular Bevel Tonica) aspirin 81 mg tablet,delayed 81 mg PO DAILY 08/12/21 04/06/23 release (Adult Aspirin Regimen) rosuvastatin 40 mg tablet See Rx Instructions .Route 11/27/21 04/06/23 .COMPLEX #90 tabs pen needle, diabetic 31 gauge x #100 ea 10/16/22 04/06/23 5/16 (BD Ultra-Fine Short Pen Needle) clopidogrel 75 mg tablet 75 mg PO DAILY #90 tabs 12/22/22 04/06/23 pregabalin 150 mg capsule 150 mg PO TID #90 caps 01/09/23 04/06/23 nitroglycerin 0.4 mg sublingual 0.4 mg sublingual Q5-15M PRN chest 02/17/23 04/06/23 tablet pain #25 tabs furosemide 80 mg tablet See Rx Instructions .Route .COMPLEX 02/20/23 04/06/23 docusate sodium 100 mg capsule 100 mg PO BID #60 caps 02/27/23 04/06/23 fluticasone propionate 50 1 spray intranasal DAILY PRN nasal 02/27/23 04/06/23 mcg/actuation nasal congestion #16 grams spray,suspension (Flonase Allergy Relief) hydroxyzine HCl 25 mg tablet 25 mg PO HS #30 tabs 02/27/23 04/06/23 insulin aspart U-100 100 unit/mL 1 - 50 unit (0.01 - 0.5 mL) subcut 02/27/23 04/06/23 (3 mL) subcutaneous pen (Novolog AC #70 mL FlexPen U-100 Insulin aspart) insulin glargine 100 unit/mL (3 40 unit (0.4 mL) subcut BID #90 mL 02/27/23 04/06/23 mL) subcutaneous pen (Basaglar KwikPen U-100 Insulin) sacubitril 24 mg-valsartan 26 mg 1 tab PO BID #60 tabs 02/27/23 04/06/23 tablet (Entresto) cyclobenzaprine 10 mg tablet 10 mg PO TID PRN muscle spasm #60 03/13/23 04/06/23 tabs hydrocodone 7.5 mg-acetaminophen 1 tab PO BID PRN back pain #56 tabs 04/01/23 04/06/23 325 mg tablet allopurinol 100 mg tablet 50 mg PO DAILY 04/02/23 04/06/23 carvedilol 12.5 mg tablet 12.5 mg PO BID #180 tabs 04/02/23 04/06/23 triamcinolone acetonide 0.5 % 1 applic topical BID PRN dermatitis 04/02/23 04/06/23 topical ointment colchicine 0.6 mg tablet 0.6 mg PO BID 04/06/23 04/06/23 dapagliflozin propanediol 5 mg 5 mg PO DAILY #90 tabs 04/06/23 04/06/23 tablet dapagliflozin propanediol 5 mg 5 mg PO DAILY 04/06/23 04/06/23 tablet (Farxiga) docusate sodium 100 mg capsule 100 mg PO DAILY #90 caps 04/06/23 04/06/23 (Colace) allopurinol 100 mg tablet 100 mg PO DAILY 04/11/23 dapagliflozin propanediol 5 mg 5 mg PO DAILY 04/11/23 tablet (Farxiga) Previous Rx's Medication Instructions Recorded inhalational spacing device #1 unit 03/15/18 (Aerochamber Plus Flow-Vu) blood-glucose meter (FreeStyle ##1 05/21/18 Lite Meter kit) blood sugar diagnostic (FreeStyle #400 strips 09/15/19 Lite Strips) flash glucose scanning reader #1 ea 04/09/21 (FreeStyle Alfredo 2 [place]) flash glucose sensor (FreeStyle #2 ea 04/09/21 Alfredo 2 Sensor kit) needle (disp) 21 G 21 gauge x 1 #100 ea 04/12/21 1 (BD Regular Bevel Tonica) rosuvastatin 40 mg tablet See Rx Instructions .Route 11/27/21 .COMPLEX #90 tabs pen needle, diabetic 31 gauge x #100 ea 10/16/2202/10 (BD Ultra-Fine Short Pen Needle) clopidogrel 75 mg tablet 75 mg PO DAILY #90 tabs 12/22/22 pregabalin 150 mg capsule 150 mg PO TID #90 caps 01/09/23 nitroglycerin 0.4 mg sublingual 0.4 mg sublingual Q5-15M PRN chest 02/17/23 tablet pain #25 tabs docusate sodium 100 mg capsule 100 mg PO BID #60 caps 02/27/23 fluticasone propionate 50 1 spray intranasal DAILY PRN nasal 02/27/23 mcg/actuation nasal congestion #16 grams spray,suspension (Flonase Allergy Relief) hydroxyzine HCl 25 mg tablet 25 mg PO HS #30 tabs 02/27/23 insulin aspart U-100 100 unit/mL 1 - 50 unit (0.01 - 0.5 mL) subcut 02/27/23 (3 mL) subcutaneous pen (Novolog AC #70 mL FlexPen U-100 Insulin aspart) insulin glargine 100 unit/mL (3 40 unit (0.4 mL) subcut BID #90 mL 02/27/23 mL) subcutaneous pen (Basaglar KwikPen U-100 Insulin) sacubitril 24 mg-valsartan 26 mg 1 tab PO BID #60 tabs 02/27/23 tablet (Entresto) cyclobenzaprine 10 mg tablet 10 mg PO TID PRN muscle spasm #60 03/13/23 tabs hydrocodone 7.5 mg-acetaminophen 1 tab PO BID PRN back pain #56 tabs 04/01/23 325 mg tablet carvedilol 12.5 mg tablet 12.5 mg PO BID #180 tabs 04/02/23 dapagliflozin propanediol 5 mg 5 mg PO DAILY #90 tabs 04/06/23 tablet docusate sodium 100 mg capsule 100 mg PO DAILY #90 caps 04/06/23 (Colace) Allergies Allergy/AdvReac Type Severity Reaction Status Date / Time cephalexin monohydrate Allergy Severe SOB Verified 04/11/23 15:41 [From Keflex] Penicillins Allergy Unknown Verified 04/11/23 15:41 General Stated Complaint: Dizzy/Sync MIRIAM: 3 Review of Systems Narrative: 10 point review of system is negative unless otherwise specified in the HPI PFSH All Active Problems (Updated 04/02/23 @ 11:12 by Teresa Liz MD) Lightheadedness (Acute) Obesity, morbid, BMI 40.0-49.9 (Acute) Chronic diabetic ulcer of right foot determined by examination (Acute) Diabetic ulcer of right foot associated with diabetes mellitus due to underlying condition (Acute) Diabetic ulcer of toe of left foot (Acute) Chronic venous insufficiency of lower extremity (Acute) Bilateral lower extremities Chronic venous stasis dermatitis (Acute) Bilateral lower extremities Chronic acquired lymphedema (Acute) Bilateral lower extremities Gouty arthritis of hand (Acute) Staphylococcus aureus bacteremia (Acute) Acute kidney injury superimposed on chronic kidney disease (Acute) Gram-positive cocci bacteremia (Acute) Sepsis (Acute) Elevated troponin (Acute) SIRS (systemic inflammatory response syndrome) (Acute) Erythema migrans (Lyme disease) (Acute) Discharge planning issues (Acute) Elevated troponin (Acute) Acute Lyme disease (Acute) Peripheral arterial disease (Acute) Nail dystrophy (Acute) Chronic foot ulcer (Acute) Hyperkalemia (Acute 07/26/14) Cellulitis (Acute) Diabetic foot infection (Acute) Leg wound, left (Acute) Diabetic retinopathy (Acute ~12/2021) B/L MODERATE-01/17 Edema (Acute) Gout (Chronic) 08/2021-diagnosed by rheumatology at [facility]-probable gout tophi of hands Obesity (Chronic) Diabetes mellitus type 2, insulin dependent (Acute) with nephropathy Chronic kidney disease (CKD) (Chronic) 08/2021- Cr 1.7 Hand arthritis (Acute) Amputation of toe (Acute) Cellulitis of foot, right (Acute) Diabetes mellitus type 2, insulin dependent (Acute) Right heart failure (Acute) Diabetic peripheral neuropathy (Chronic) Diabetic peripheral angiopathy (Chronic) Hypertension (Chronic) Chronic pain syndrome (Chronic) low back pain, drug contract at [facility]-V PMS and drug screen on 08/1221-patient on chronic hydrocodone Coronary artery disease involving [place] coronary artery of [place] heart with unstable angina pectoris (Chronic 08/30/17) 08-24-[place] [facility]ATH: 3 vessel disease (LAD,LCx and RCA): coronary bypass sx pending Dyspnea on exertion (Chronic 12/16/13) negative nuclear stress test echocardiogram: normal/ EF 65%/no valvulopathy Cardiol.eval. : not ischemia related ([facility]) Peripheral autonomic neuropathy in disorders classified elsewhere (Chronic 09/15/14) Hyperlipidemia (Chronic) Medical History Congestive heart failure Diabetic foot ulcer DM (diabetes mellitus) 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 secondary to diabetic ulcer, angiopathy Laceration of lower leg with foreign body Lymphedema Obesity Proliferative diabetic retinopathy of both eyes without macular edema associated with diabetes mellitus due to underlying condition (01/18/18) 01/18/18[place] [place] Scrotal hematoma (07/26/14) A. S/p hydrocelectomy 07/24/14 Stroke (~2008) TIA (transient ischemic attack) Toe osteomyelitis, right s/p amputation. 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 Hydrocelectomy 07/24/2014 History of cataract removal with insertion of prosthetic lens History of hydrocelectomy (07/24/14) right S/P CABG x 3 (08/30/17) [facility] [place] 08-29-2017 : no fup needed S/P femoral-popliteal bypass surgery right. 03/2020 Family History Mother No problems noted. Father Diabetes Myocardial infarction Heart disease Sister Diabetes Social History Smoking/Tobacco Use Status: Former Tobacco Use Quit Date: 09/28/83 Tobacco: How many years used: 5 Smoking risk assessment performed?: Yes Alcohol Intake: current Alcohol Intake frequency: holidays/special occasions only Drug use: Occasionally Substance use type: marijuana Pets and animals: Yes Pets and animals: cat(s) and dog(s) What type of physical activity do you participate in: none Do you feel safe at home: Yes Do you feel safe in your relationship?: Yes Exam Narrative Exam Narrative: General: A,A Ox3, Calm, no apparent distress, well developed, pleasant and cooperative Head Size/Shape: normocephalic, atraumatic Eyes Pupils: PERRLA Extraocular Mobility: intact and symmetrical Conjunctiva: non-injected, anicteric, no discharge Ears, Nose, Throat Nares: patent bilaterally Oral Cavity: moist Neck: no masses, no crepitus Lymph Nodes: no cervical lymphadenopathy Respiratory Respiratory Effort: no dyspnea Auscultation: clear to auscultation bilaterally, normal breath sounds, no wheezing, no rales/crackles Cardiovascular Heart Auscultation: regular rate and rhythm, normal S1, normal S2, no murmurs, no rubs, no gallops, Abdomen Inspection and Palpation: soft, non-tender, non-distended, no hepatosplenomegaly Musculoskeletal System Joints, Bones, and Muscles: no deformities Extremities: warm and well-perfused, no cyanosis, capillary refill <2 seconds Skin Skin Inspection: no rash, no lesions, no bruising Neurological Motor: normal tone, normal strength, moving all extremities equally Psychiatric: good insight, good judgement, normal mood and affect Course Vital Signs Vital signs: Vital Signs Pulse 75 04/11/23 15:35 Respiratory Rate 16 04/11/23 15:35 Blood Pressure 120/63 04/11/23 15:35 Pulse Oximetry 94 04/11/23 15:35 Temperature Source Skin 04/11/23 15:35 Pulse 75 04/11/23 15:35 Respiratory Rate 16 04/11/23 15:35 Blood Pressure 120/63 04/11/23 15:35 Blood Pressure Position Sitting 04/11/23 15:35 Pulse Oximetry 94 04/11/23 15:35 Oxygen Delivery Method Room Air 04/11/23 15:35 Oxygen Flow Rate 0 04/11/23 15:35 Pain Level 0 04/11/23 15:35
[2023-04-11 16:02] LABS: Abs Immature Grans 0.01 10^3/uL (0.0-0.06); Absolute Basophil Count 0.05 10^3/uL (0.0-0.2); Absolute Eosinophil Count 0.75 10^3/uL (0.0-0.7); Absolute Monocyte Count 0.68 10^3/uL (0.1-0.8); Absolute Neutrophil Count 3.83 10^3/uL (1.2-6.7); Basophils % 0.8; Eosinophils % 11.3; HCT 36.3 % (40.0-50.0); HGB 12.4 g/dL (13.5-17.5); Immature Grans % 0.2; Lymphocytes % 19.6; MCH 29.7 pg (27.0-33.0); MCHC 34.2 % (32.0-36.0); MCV 87 fL (80-95); MPV 10.8 fL (8.0-11.0); Monocytes % 10.3; Neutrophils % 57.8; Platelet Count 115 10^3/uL (130-400); RBC 4.18 10^6/uL (4.36-5.78); RDW 13.3 % (11.8-14.1); RDW-SD 41.8 fL; WBC 6.62 10^3/uL (4.4-10.8)
[2023-04-11 16:14] LABS: Anion Gap 9.3 mmol/L (3-11); CO2 28.7 mmol/L (21.0-32.0); Calcium 9.3 mg/dL (8.5-10.1); Chloride 95 mmol/L (98-107); Estimated GFR 14.33 (mL/min/1.73m2); Glucose 310 mg/dL (74-106); Potassium 5.3 mmol/L (3.5-5.1); Sodium 133 mmol/L (136-145)
[2023-04-11 16:17] LABS: BUN 111 mg/dL (7-18); CREATININE 4.3 mg/dL (0.70-1.30)
[2023-04-11] MEDS: Lactated Ringers 1,000 ML 150 ML IV (16:35)
== END 2023-04-11 21:52 | disposition home or self-care (01) ==
PROVIDERS: Emergency Provider Emergency Medicine; PCP Nurse Practitioner Family
DX: I95.9 Hypotension, unspecified (principal); R55 Syncope and collapse
CPT/HCPCS: 36415; 80048; 96360; 96361; 99284; 85025

== ENCOUNTER 2023-05-06 20:51 | Inpatient (IN) | payer MEDICARE, SELFPAY ==
[2023-05-06] VITALS (30 sets, daily range): BP systolic 111–201; BP diastolic 49–163; PULSE 72–149; RESP 12–30; TEMP 37.7; O2SAT 95
--- NOTE | 2023-05-06 20:45 | RT.EKG_ITS ---
APPROVED REPORT Exam: Resting ECG Reason for Exam: chest pain Patient Location: E HR:76 bpm ECG Measurements Heart Rate 76 AXIS AK 172 P -68 QRSd 168 QRS 85 QT 442 T 31 QTc 491 Conclusion Sinus or ectopic atrial rhythm...P axis (-45,135) Atrial premature complexes...SV complexes w/ short R-R intvls Right bundle branch block...QRSd>120, terminal axis(90,270) Physician: similiar findings on prior ekg. no stemi
--- NOTE | 2023-05-06 20:59 | ED.GENADUL_ITS ---
Discharge Plan Disposition Patient Disposition: Admit to [facility] Condition: Improving Discharge Details Clinical Impression: Fever of unknown origin, Weakness Primary Care Provider: Jarrod Schultz ED Provider: Carlos Lozano Home Meds and New Rx's Prescriptions: No Action rosuvastatin 40 mg tablet See Rx Instructions .ROUTE .COMPLEX Qty: 90 3RF Dose Instruction: TAKE ONE TABLET BY MOUTH EVERY DAY AT BEDTIME Rx Instructions: TAKE ONE TABLET BY MOUTH EVERY DAY AT BEDTIME nitroglycerin 0.4 mg tablet, sublingual 0.4 mg SL Q5-15M PRN (Reason: chest pain) Qty: 25 0RF aspirin [Adult Aspirin Regimen] 81 mg tablet,delayed release (DR/EC) 81 mg PO DAILY cyclobenzaprine 10 mg tablet 10 mg PO TID PRN (Reason: muscle spasm) Qty: 60 0RF colchicine (gout) 0.6 mg tablet 0.6 mg PO .TWICE A WEEK Farxiga 5 mg tablet 5 mg PO DAILY allopurinol 100 mg tablet 50 mg PO DAILY triamcinolone acetonide 0.5 % ointment 1 applic Topical BID PRN (Reason: dermatitis) carvedilol 12.5 mg tablet 12.5 mg PO BID Qty: 180 3RF Rx Instructions: must administer with a meal/food allopurinol 100 mg tablet 100 mg PO DAILY Rx Instructions: 0.5 Tablets Po QD Farxiga 5 mg tablet 5 mg PO DAILY (DME) BD Insulin Syringe 1 EACH syringe 1 ea Sub-Q QID Qty: 3 Rx Instructions: B/D INSULIN ULTRA-FINE 30GX0.3/ (DME) Aerochamber Plus Flow-Vu 1 EACH spacer 1 ea Miscellaneous PRN Qty: 1 0RF (DME) blood-glucose meter [FreeStyle Lite Meter] 1 EACH kit 1 ea Miscellaneous TID Qty: 1 0RF (DME) FreeStyle Lite Strips Strip 1 ea Miscellaneous QID Qty: 400 6RF Rx Instructions: 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 E11.42 (DME) FreeStyle Alfredo 2 [place] Misc See Rx Instructions .ROUTE .MEDSUPPLY Qty: 1 0RF Rx Instructions: As directed (DME) FreeStyle Alfredo 2 Sensor Kit See Rx Instructions .ROUTE .MEDSUPPLY Qty: 2 6RF Rx Instructions: As directed (DME) BD Regular Bevel [place] 21 gauge x 1 1/2 needle 1 ea Miscellaneous QID Qty: 100 6RF Rx Instructions: BD U100 29g 1/2 with safety lock insulin syringes Dx E11.49 (DME) pen needle, diabetic [BD Ultra-Fine Short Pen Needle] 31 gauge x /16 needle See Rx Instructions .ROUTE .MEDSUPPLY Qty: 100 4RF Rx Instructions: check blood sugar qid clopidogrel 75 mg tablet 75 mg PO DAILY Qty: 90 3RF pregabalin 150 mg capsule 150 mg PO TID Qty: 90 5RF furosemide 80 mg tablet See Rx Instructions .ROUTE .COMPLEX Qty: 60 0RF Rx Instructions: takes 80 mg in the morning + 80 mg in the afternoon PRN SOB hydrocodone-acetaminophen 7.5-325 mg tablet 1 tab PO BID MDD 2 tabs PRN (Reason: back pain) Qty: 56 0RF multivitamin Tablet 1 tab PO DAILY acetaminophen 500 mg Tablet 1,000 mg PO Q6H PRN docusate sodium 100 mg Capsule 100 mg PO BID Qty: 60 0RF hydroxyzine HCl 25 mg Tablet 25 mg PO HS Qty: 30 0RF Entresto 24-26 mg Tablet 1 tab PO BID Qty: 60 0RF insulin aspart U-100 [Novolog FlexPen U-100 Insulin] 100 unit/mL (3 mL) insulin pen 1 - 50 unit Sub-Q AC Qty: 70 4RF insulin glargine [Basaglar KwikPen U-100 Insulin] 100 unit/mL (3 mL) insulin pen 40 unit subcut BID Qty: 90 3RF fluticasone propionate [Flonase Allergy Relief] 50 mcg/actuation spray,suspension 1 spray intranasal DAILY PRN (Reason: nasal congestion) Qty: 16 0RF Rx Instructions: administer into each nostril Medical Decision Making 68-year-old male with a past medical history of diabetes, chronic kidney disease, hypertension, coronary artery disease, peripheral neuropathy, gout, who is on Plavix presents today for evaluation of confusion and fever. states that at 3 AM this morning he developed confusion and then subsequent fever around 102. This continued throughout today. He has had a few episodes of nausea and vomiting, as well as complaints of chills. Questionable mild cough. Family admits to weakness but denies any falls or trauma. No other sick contacts at this time. No diarrhea. No other modifying factors. Physical exam demonstrates dry mucous membranes, scattered rhonchi on lung auscultation. Mildly distended but nontender abdomen. Differential includes pneumonia, COVID, bowel obstruction urine or abdominal pathology. Will get a CT scan of the chest abdomen pelvis to evaluate for infectious etiology or obstructive etiology, gently rehydrate, monitor closely and reassess. EKG shows evidence of right bundle branch block 10:59 PM Laboratory workup has returned, patient has a white count of 15, notable left shift, mild drop in platelets at 104. Neutrophil predominance. Lactate high at 1.5. BUN elevated at 83 which is better than normal, creatinine elevated at 3.2 which is better than normal, and troponin elevated at 77 which is also better than normal. Urinalysis shows no evidence of infection. COVID flu and RSV negative. Uncertain as to what is the cause of the patient's fever. He has no nuchal rigidity. CT scan of the chest abdomen pelvis demonstrates no significant acute findings of pneumonia. There is a distended bladder but that is all. Family states this is how the patient presented last time he went septic, blood cultures at that time grew Staph aureus. Concern for continued potential bacteremia on this episode. We will give broad-spectrum antibiotics of vancomycin, H3 in a.m., and doxycycline for coverage of atypicals, tickborne illnesses, gram-negative and gram-positive. We will send for tick and Lyme panel. We are still pending procalcitonin. Will reach out to the hospitalist Dr. Kilgore for admission. FINDINGS: Lungs: Motion artifact in the lungs. No benny airspace consolidation or suspicious pulmonary lesions accounting for motion. Pleural spaces: No pneumothorax. No pleural effusion. Heart: Mild cardiomegaly. Lymph nodes: Mildly prominent paratracheal lymph nodes. Vasculature: No aortic aneurysm. Bones/joints: Median sternotomy wires. Chronic appearing diastasis of the sternum. No acute fracture allowing for motion. Soft tissues: No suspicious lesions. IMPRESSION: 1. No acute findings on noncontrast imaging. 2. Incidental findings as described. FINDINGS: Liver: Portions of the liver appear micronodular not well assessed due to motion, could be a very early cirrhosis. No hepatic masses on noncontrast imaging. Gallbladder and bile ducts: Cholelithiasis. Pancreas: No gross pathology in the pancreas on noncontrast imaging. Spleen: No splenomegaly or focal lesions. Adrenal glands: No mass. Kidneys and ureters: Symmetric edema around the kidneys without obstruction; could relate to medical renal disease. No nephrolithiasis or collecting system obstruction. Stomach and bowel: No acute pathology allowing for noncontrast imaging and motion in small bowel or colon. No obstructive component. Appendix: No evidence of appendicitis. Intraperitoneal space: No free air. No significant fluid collection. Vasculature: No abdominal aortic aneurysm. Lymph nodes: No significantly enlarged lymph nodes. Urinary bladder: The urinary bladder is distended. No urinary bladder wall thickening. Reproductive: Moderate prostatic enlargement. Bones/joints: Chronic bony changes with no acute fracture. Soft tissues: Ventral abdominal wall not optimally assessed due to motion. Infiltrated appearance on the right favors chronic injection granulomas/scarring rather than edema or cellulitis. Other findings: Motion artifact in the abdomen. IMPRESSION: 1. Very distended urinary bladder. Otherwise no acute findings on noncontrast imaging. 2. Incidental findings as described. Thank you for allowing us to participate in the care of your patient. Dictated and Authenticated by: Ying Miranda MD 05/06/2023 10:25 PM Eastern Time ([place] & [place]) HPI General Date/Time Provider Initiated Documentation: 05/06/23 20:56 . HPI Narrative: 68-year-old male with a past medical history of diabetes, chronic kidney disease, hypertension, coronary artery disease, peripheral neuropathy, gout, who is on Plavix presents today for evaluation of confusion and fever. states that at 3 AM this morning he developed confusion and then subsequent fever around 102. This continued throughout today. He has had a few episodes of nausea and vomiting, as well as complaints of chills. Questionable mild cough. Family admits to weakness but denies any falls or trauma. No other sick contacts at this time. No diarrhea. No other modifying factors. Related Data Home Medications Medication Instructions Recorded Confirmed insulin syringe-needle U-100 1 mL ##3 10/14/16 04/29/23 26 x 1/2 (BD Insulin Syringe) inhalational spacing device #1 unit 03/15/18 04/29/23 (Aerochamber Plus Flow-Vu) blood-glucose meter (FreeStyle ##1 05/21/18 04/29/23 Lite Meter kit) blood sugar diagnostic (FreeStyle #400 strips 09/15/19 04/29/23 Lite Strips) acetaminophen 500 mg tablet 1,000 mg PO Q6H PRN 06/14/20 05/06/23 multivitamin 1 tab PO DAILY 06/14/20 05/06/23 flash glucose scanning reader #1 ea 04/09/21 04/29/23 (FreeStyle Alfredo 2 [place]) flash glucose sensor (FreeStyle #2 ea 04/09/21 04/29/23 Alfredo 2 Sensor kit) needle (disp) 21 G 21 gauge x 1 #100 ea 04/12/21 04/29/23 12 (BD Regular Bevel [place]) aspirin 81 mg tablet,delayed 81 mg PO DAILY 08/12/21 05/06/23 release (Adult Aspirin Regimen) rosuvastatin 40 mg tablet See Rx Instructions .Route 11/27/21 05/06/23 .COMPLEX #90 tabs pen needle, diabetic 31 gauge x #100 ea 10/16/22 04/29/23/16 (BD Ultra-Fine Short Pen Needle) clopidogrel 75 mg tablet 75 mg PO DAILY #90 tabs 12/22/22 05/06/23 pregabalin 150 mg capsule 150 mg PO TID #90 caps 01/09/23 05/06/23 nitroglycerin 0.4 mg sublingual 0.4 mg sublingual Q5-15M PRN chest 02/17/23 05/06/23 tablet pain #25 tabs docusate sodium 100 mg capsule 100 mg PO BID #60 caps 02/27/23 05/06/23 fluticasone propionate 50 1 spray intranasal DAILY PRN nasal 02/27/23 05/06/23 mcg/actuation nasal congestion #16 grams spray,suspension (Flonase Allergy Relief) hydroxyzine HCl 25 mg tablet 25 mg PO HS #30 tabs 02/27/23 05/06/23 insulin aspart U-100 100 unit/mL 1 - 50 unit (0.01 - 0.5 mL) subcut 02/27/23 05/06/23 (3 mL) subcutaneous pen (Novolog AC #70 mL FlexPen U-100 Insulin aspart) insulin glargine 100 unit/mL (3 40 unit (0.4 mL) subcut BID #90 mL 02/27/23 05/06/23 mL) subcutaneous pen (Basaglar KwikPen U-100 Insulin) sacubitril 24 mg-valsartan 26 mg 1 tab PO BID #60 tabs 02/27/23 05/06/23 tablet (Entresto) cyclobenzaprine 10 mg tablet 10 mg PO TID PRN muscle spasm #60 03/13/23 05/06/23 tabs allopurinol 100 mg tablet 50 mg PO DAILY 04/02/23 05/06/23 carvedilol 12.5 mg tablet 12.5 mg PO BID #180 tabs 04/02/23 05/06/23 triamcinolone acetonide 0.5 % 1 applic topical BID PRN dermatitis 04/02/23 05/06/23 topical ointment colchicine (gout) 0.6 mg tablet 0.6 mg PO .TWICE A WEEK 04/06/23 05/06/23 dapagliflozin propanediol 5 mg 5 mg PO DAILY 04/06/23 05/06/23 tablet ([facility]) allopurinol 100 mg tablet 100 mg PO DAILY 04/11/23 05/06/23 dapagliflozin propanediol 5 mg 5 mg PO DAILY 04/11/23 05/06/23 tablet (xiga) furosemide 80 mg tablet See Rx Instructions .Route 04/29/23 05/06/23 .COMPLEX #60 tabs hydrocodone 7.5 mg-acetaminophen 1 tab PO BID PRN back pain #56 tabs 04/29/23 05/06/23 325 mg tablet Previous Rx's Medication Instructions Recorded inhalational spacing device #1 unit 03/15/18 (Aerochamber Plus Flow-Vu) blood-glucose meter (FreeStyle ##1 05/21/18 Lite Meter kit) blood sugar diagnostic (FreeStyle #400 strips 09/15/19 Lite Strips) flash glucose scanning reader #1 ea 04/09/21 (FreeStyle Alfredo 2 [place]) flash glucose sensor (FreeStyle #2 ea 04/09/21 Alfredo 2 Sensor kit) needle (disp) 21 G 21 gauge x 1 #100 ea 04/12/2109/29 (BD Regular Bevel [place]) rosuvastatin 40 mg tablet See Rx Instructions .Route 11/27/21 .COMPLEX #90 tabs pen needle, diabetic 31 gauge x #100 ea 10/16/2202/10 (BD Ultra-Fine Short Pen Needle) clopidogrel 75 mg tablet 75 mg PO DAILY #90 tabs 12/22/22 pregabalin 150 mg capsule 150 mg PO TID #90 caps 01/09/23 nitroglycerin 0.4 mg sublingual 0.4 mg sublingual Q5-15M PRN chest 02/17/23 tablet pain #25 tabs docusate sodium 100 mg capsule 100 mg PO BID #60 caps 02/27/23 fluticasone propionate 50 1 spray intranasal DAILY PRN nasal 02/27/23 mcg/actuation nasal congestion #16 grams spray,suspension (Flonase Allergy Relief) hydroxyzine HCl 25 mg tablet 25 mg PO HS #30 tabs 02/27/23 insulin aspart U-100 100 unit/mL 1 - 50 unit (0.01 - 0.5 mL) subcut 02/27/23 (3 mL) subcutaneous pen (Novolog AC #70 mL FlexPen U-100 Insulin aspart) insulin glargine 100 unit/mL (3 40 unit (0.4 mL) subcut BID #90 mL 02/27/23 mL) subcutaneous pen (Basaglar KwikPen U-100 Insulin) sacubitril 24 mg-valsartan 26 mg 1 tab PO BID #60 tabs 02/27/23 tablet (Entresto) cyclobenzaprine 10 mg tablet 10 mg PO TID PRN muscle spasm #60 03/13/23 tabs carvedilol 12.5 mg tablet 12.5 mg PO BID #180 tabs 04/02/23 furosemide 80 mg tablet See Rx Instructions .Route 04/29/23 .COMPLEX #60 tabs hydrocodone 7.5 mg-acetaminophen 1 tab PO BID PRN back pain #56 tabs 04/29/23 325 mg tablet Allergies Allergy/AdvReac Type Severity Reaction Status Date / Time cephalexin monohydrate Allergy Severe SOB Verified 05/06/23 20:57 [From Keflex] Penicillins Allergy Unknown Verified 05/06/23 20:57 General Stated Complaint: Fever MIRIAM: 2 Review of Systems All systems reviewed & are unremarkable except as noted in HPI and below PFSH All Active Problems (Updated 05/06/23 @ 23:03 by Carlos Lozano DO) Fever of unknown origin (Acute) Weakness (Acute) Acute renal injury (Acute) Lightheadedness (Acute) Obesity, morbid, BMI 40.0-49.9 (Acute) Chronic diabetic ulcer of right foot determined by examination (Acute) Diabetic ulcer of right foot associated with diabetes mellitus due to underlying condition (Acute) Diabetic ulcer of toe of left foot (Acute) Chronic venous insufficiency of lower extremity (Acute) Bilateral lower extremities Chronic venous stasis dermatitis (Acute) Bilateral lower extremities Chronic acquired lymphedema (Acute) Bilateral lower extremities Gouty arthritis of hand (Acute) Staphylococcus aureus bacteremia (Acute) Acute kidney injury superimposed on chronic kidney disease (Acute) Gram-positive cocci bacteremia (Acute) Sepsis (Acute) Elevated troponin (Acute) SIRS (systemic inflammatory response syndrome) (Acute) Erythema migrans (Lyme disease) (Acute) Discharge planning issues (Acute) Elevated troponin (Acute) Acute Lyme disease (Acute) Peripheral arterial disease (Acute) Nail dystrophy (Acute) Chronic foot ulcer (Acute) Hyperkalemia (Acute 07/26/14) Cellulitis (Acute) Diabetic foot infection (Acute) Leg wound, left (Acute) Diabetic retinopathy (Acute ~12/2021) B/L MODERATE-01/17 Edema (Acute) Gout (Chronic) 08/2021-diagnosed by rheumatology at [facility]-probable gout tophi of hands Obesity (Chronic) Diabetes mellitus type 2, insulin dependent (Acute) with nephropathy Chronic kidney disease (CKD) (Chronic) 08/2021- Cr 1.7 Hand arthritis (Acute) Amputation of toe (Acute) Cellulitis of foot, right (Acute) Diabetes mellitus type 2, insulin dependent (Acute) Right heart failure (Acute) Diabetic peripheral neuropathy (Chronic) Diabetic peripheral angiopathy (Chronic) Hypertension (Chronic) Chronic pain syndrome (Chronic) low back pain, drug contract at [facility]-V PMS and drug screen on 08/1221-patient on chronic hydrocodone Coronary artery disease involving [place] coronary artery of [place] heart with unstable angina pectoris (Chronic 08/30/17) 08-24-2017 [facility] [place] cardiac CATH: 3 vessel disease (LAD,LCx and RCA): coronary bypass sx pending Dyspnea on exertion (Chronic 12/16/13) negative nuclear stress test echocardiogram: normal/ EF 65%/no valvulopathy Cardiol.eval. : not ischemia related ([facility]) Peripheral autonomic neuropathy in disorders classified elsewhere (Chronic 09/15/14) Hyperlipidemia (Chronic) Medical History Congestive heart failure Diabetic foot ulcer DM (diabetes mellitus) 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 secondary to diabetic ulcer, angiopathy Laceration of lower leg with foreign body Lymphedema Obesity Proliferative diabetic retinopathy of both eyes without macular edema associated with diabetes mellitus due to underlying condition (01/18/18) 01/18/18-[facility] [place] 01/31/19-[facility] [place] Scrotal hematoma (07/26/14) A. S/p hydrocelectomy 07/24/14 Stroke (~2008) TIA (transient ischemic attack) Toe osteomyelitis, right s/p amputation. 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 Hydrocelectomy 07/24/2014 History of cataract removal with insertion of prosthetic lens History of hydrocelectomy (07/24/14) right S/P CABG x 3 (08/30/17) [facility] [place] 08-29-2017 : no fup needed S/P femoral-popliteal bypass surgery right. 03/2020 Family History Mother No problems noted. Father Diabetes Myocardial infarction Heart disease Sister Diabetes Social History Smoking/Tobacco Use Status: Former Tobacco Use Quit Date: 09/28/83 Tobacco: How many years used: 5 Smoking risk assessment performed?: Yes Alcohol Intake: current Alcohol Intake frequency: holidays/special occasions only Drug use: Occasionally Substance use type: marijuana Pets and animals: Yes Pets and animals: cat(s) and dog(s) What type of physical activity do you participate in: none Do you feel safe at home: Yes Do you feel safe in your relationship?: Yes Exam Narrative Exam Narrative: 1.Const: Well-nourished, Well-developed, appearing stated age 2.Eyes: PERRL, no conjunctival injection, and symmetrical lids. 3.ENT: Atraumatic external nose and ears. Dry MM. Neck: Symmetric, trachea midline, No thyromegaly. 4.CVS: +S1/S2, No murmurs or gallops. Peripheral pulses 2+ and equal in all extremities. Brisk capillary refill in all extremities. 5.RESP: Unlabored respiratory effort. Scattered rhonchi 6.GI: Soft, Nontender/mildly distended, No hepatosplenomegaly. No guarding or rebound. 7.MSK: Normocephalic/Atraumatic, Extremities w/o deformity or ttp No cyanosis or clubbing, Normal movement of all extremities 8.Skin: Warm, Dry. No rashes or lesions. 9.Neuro: project administrator II-XII grossly intact. Sensation grossly intact, no focal neurologic deficits. 10.Psych: (AAO) x3. Appropriate mood and affect Course Vital Signs Vital signs: Vital Signs Temperature 37.7 C H 05/06/23 20:52 Pulse 89 05/06/23 20:52 Respiratory Rate 25 H 05/06/23 20:52 Blood Pressure 141/58 H 05/06/23 20:52 Pulse Oximetry 95 05/06/23 20:52 Temperature 37.7 C H 05/06/23 20:52 Pulse 89 05/06/23 20:52 Respiratory Rate 25 H 05/06/23 20:52 Respiratory Effort Normal 05/06/23 20:52 Blood Pressure 141/58 H 05/06/23 20:52 Pulse Oximetry 95 05/06/23 20:52 Oxygen Delivery Method Nasal Cannula 05/06/23 20:52 Oxygen Flow Rate 1 05/06/23 20:52 Lab/Test Results Lab/Test Results: 05/06/23 20:56 Blood Blood Culture - Pending 05/06/23 20:56 Blood Blood Culture - Pending
[2023-05-06 21:06] LABS: Lactate 1.5 mmol/L (0.6-1.4)
[2023-05-06 21:12] LABS: Abs Immature Grans 0.13 10^3/uL (0.0-0.06); Absolute Basophil Count 0.03 10^3/uL (0.0-0.2); Absolute Monocyte Count 0.94 10^3/uL (0.1-0.8); Basophils % 0.2; HCT 33.3 % (40.0-50.0); HGB 11.4 g/dL (13.5-17.5); Immature Grans % 0.9; Lymphocytes % 1.3; MCH 30.1 pg (27.0-33.0); MCHC 34.2 % (32.0-36.0); MCV 88 fL (80-95); MPV 11.6 fL (8.0-11.0); Monocytes % 6.3; Neutrophils % 91.3; Platelet Count 104 10^3/uL (130-400); RBC 3.79 10^6/uL (4.36-5.78); RDW 13.7 % (11.8-14.1); RDW-SD 43.8 fL
[2023-05-06 21:20] LABS: Absolute Lymphocyte Count 0.19 10^3/uL (1.2-3.4)
[2023-05-06 21:26] LABS: ALT 14 U/L (16-63); AST 17 U/L (15-37); Albumin 3.8 g/dL (3.4-5.0); Alkaline Phosphatase 74 U/L (46-116); Anion Gap 13.4 mmol/L (3-11); Bilirubin, Total 0.8 mg/dL (0.2-1.0); CO2 26.6 mmol/L (21.0-32.0); CREATININE 3.2 mg/dL (0.70-1.30); Calcium 9.3 mg/dL (8.5-10.1); Chloride 100 mmol/L (98-107); Estimated GFR 20.43 (mL/min/1.73m2); Glucose 115 mg/dL (74-106); Magnesium 1.9 mg/dL (1.8-2.4); Potassium 4.3 mmol/L (3.5-5.1); Sodium 140 mmol/L (136-145); Total Protein 8.2 g/dL (6.4-8.2)
[2023-05-06 21:27] LABS: BUN 83 mg/dL (7-18); Troponin I 77 ng/L (<or=60)
[2023-05-06] MEDS: Normal Saline 1,000 ML 1000 ML IV (21:29)
--- NOTE | 2023-05-06 21:30 | DI.CT_ITS ---
Exam(s) CT CHEST/ABD/PEL WO EXAM: CT CHEST/ABD/PEL WO CLINICAL HISTORY: vomiting, cough, fever TECHNIQUE: Imaging Protocol: Axial computed tomography images with coronal and sagittal reformatted images were created and reviewed COMPARISON: CT CT ABDOMEN PELVIS WO from 06/29/2022 FINDINGS: The examination is limited due to patient motion artifact. CHEST: Tracheobronchial tree: Patent where visualized. Pulmonary parenchyma: No consolidation or dominant measurable mass. There is a calcified granuloma in the right upper lobe. Mediastinum and Elisa: No dominant adenopathy or fluid collection. The esophagus is unremarkable. Thyroid gland: Unremarkable. Pleura: No effusion or pneumothorax. Heart: Mild cardiomegaly. Marked coronary artery calcification and/or stents. No pericardial effusi on. Aorta: Thoracic aorta non-dilated. Atherosclerosis. Lymph nodes: Within normal limits. Bones:Within normal limits for the patient's age. Sternal wires are in place. Soft tissues: Unremarkable. ABDOMEN: Liver: Normal density. No measurable mass. Gallbladder and Biliary Tract: Cholelithiasis. No biliary ductal dilatation. Pancreas: Normal density, no abnormal calcifications or inflammatory process. Spleen: Normal. Adrenals: No masses seen. Kidneys: Normal size, contour and axis. No radiodense stones or obstructive uropathy. No masses seen. There is a retroaortic left renal vein. Abdominal Aorta: Abdominal portion non-dilated. Atherosclerosis. Bowel: No obstruction or bowel wall thickening. No evidence of appendicitis. Peritoneal Cavity: No ascites, collection or mesenteric inflammatory response. No free air. Lymph Nodes: Within normal limits. Bones: Within normal limits for the patient's age. Soft Tissues: Unremarkable. PELVIS: Bladder: The urinary bladder is distended. No urinary bladder wall thickening. Reproductive Organs: Mildly enlarged prostate gland. Lymph Nodes: Within normal limits. Bones: Within normal limits for the patient's age. IMPRESSION: 1. No acute pulmonary process. 2. No acute abdominal or pelvic process. 3. Very distended urinary bladder. No bladder wall thickening. RADIATION DOSE DELIVERED: 2,251.44mGy.cm Total DLP 2,251.44mGy.cm Total DLP DATA REPOSITORY: All CT scans at this facility are submitted to the National Radiology Data Registry (NRDR) Dose Index Registry (DIR) with the [employer] (ACR). RADIATION OPTIMIZATION: All CT scans at this facility use at least one of these dose optimization te chniques: automated exposure control; mA and/or kV adjustment per patient size (includes targeted exa ms where dose is matched to clinical indication); or iterative reconstruction.
[2023-05-06 21:59] LABS: COVID-19 PCR Negative (Negative); Influenza A PCR Negative (Negative); Influenza B PCR Negative (Negative); RSV PCR Negative (Negative)
[2023-05-06 22:05] LABS: Source Nasopharynx
--- NOTE | 2023-05-06 22:26 | DI.VRAD_ITS ---
PROCEDURE INFORMATION: Exam: CT Chest Without Contrast; Diagnostic Exam date and time: 05/06/2023 21:55 Age: 68 years old Clinical indication: Other: Vomiting, cough, fever; Prior surgery; Surgery date: 6+ months; Surgery type: Appy, open heart surgery TECHNIQUE: Imaging protocol: Diagnostic computed tomography of the chest without contrast. Radiation optimization: All CT scans at this facility use at least one of these dose optimization techniques: automated exposure control; mA and/or kV adjustment per patient size (includes targeted exams where dose is matched to clinical indication); or iterative reconstruction. COMPARISON: CT CHEST PE ABD PELVIS W 05/15/2019 18:08 FINDINGS: Lungs: Motion artifact in the lungs. No benny airspace consolidation or suspicious pulmonary lesions accounting for motion. Pleural spaces: No pneumothorax. No pleural effusion. Heart: Mild cardiomegaly. Lymph nodes: Mildly prominent paratracheal lymph nodes. Vasculature: No aortic aneurysm. Bones/joints: Median sternotomy wires. Chronic appearing diastasis of the sternum. No acute fracture allowing for motion. Soft tissues: No suspicious lesions. IMPRESSION: 1. No acute findings on noncontrast imaging. 2. Incidental findings as described. PROCEDURE INFORMATION: Exam: CT Abdomen And Pelvis Without Contrast Exam date and time: 05/06/2023 21:55 Age: 68 years old Clinical indication: Other: Vomiting, cough, fever; Prior surgery; Surgery date: 6+ months; Surgery type: Appy, open heart surgery TECHNIQUE: Imaging protocol: Computed tomography of the abdomen and pelvis without contrast. Radiation optimization: All CT scans at this facility use at least one of these dose optimization techniques: automated exposure control; mA and/or kV adjustment per patient size (includes targeted exams where dose is matched to clinical indication); or iterative reconstruction. COMPARISON: CT ABDOMEN PELVIS WO 06/29/2022 11:18 FINDINGS: Liver: Portions of the liver appear micronodular not well assessed due to motion, could be a very early cirrhosis. No hepatic masses on noncontrast imaging. Gallbladder and bile ducts: Cholelithiasis. Pancreas: No gross pathology in the pancreas on noncontrast imaging. Spleen: No splenomegaly or focal lesions. Adrenal glands: No mass. Kidneys and ureters: Symmetric edema around the kidneys without obstruction; could relate to medical renal disease. No nephrolithiasis or collecting system obstruction. Stomach and bowel: No acute pathology allowing for noncontrast imaging and motion in small bowel or colon. No obstructive component. Appendix: No evidence of appendicitis. Intraperitoneal space: No free air. No significant fluid collection. Vasculature: No abdominal aortic aneurysm. Lymph nodes: No significantly enlarged lymph nodes. Urinary bladder: The urinary bladder is distended. No urinary bladder wall thickening. Reproductive: Moderate prostatic enlargement. Bones/joints: Chronic bony changes with no acute fracture. Soft tissues: Ventral abdominal wall not optimally assessed due to motion. Infiltrated appearance on the right favors chronic injection granulomas/scarring rather than edema or cellulitis. Other findings: Motion artifact in the abdomen. IMPRESSION: 1. Very distended urinary bladder. Otherwise no acute findings on noncontrast imaging. 2. Incidental findings as described. Dictated and Authenticated by: Ying Miranda MD. Ordering:EDY Gonzalez MD
[2023-05-06 22:30] LABS: Bilirubin Negative (Negative); Blood Moderate (Negative); Clarity Clear (Clear); Glucose 500 mg/dL (Negative); Ketones Negative (Negative); Leukocyte Esterase Negative (Negative); Nitrite Negative (Negative)
[2023-05-06 22:39] LABS: Bacteria Rare HPF (Negative); C & S Indicated? No; Casts 0-2 Fine Granular LPF (Negative); Crystals Negative HPF (Negative); Epithelial Cells Few HPF (Negative); Mucus Negative (Negative); Other Cells Rare Transitional (Negative); RBC 0-2 HPF (0-2); WBC 0-2 HPF (0-5)
[2023-05-06] MEDS: AZTREONAM 2,000 MG in Normal Saline 100 ML 200 MG IVPB (23:07)
[2023-05-06] MEDS: DOXYCYCLINE 100 MG in Normal Saline 100 ML IVPB (23:15)
[2023-05-06 23:20] LABS: Procalcitonin 1.3 ng/mL
[2023-05-07] VITALS (132 sets, daily range): BP systolic 89–132; BP diastolic 21–96; PULSE 50–98; RESP 14–28; TEMP 36.8–38.5; O2SAT 87–98
[2023-05-07] MEDS: Normal Saline 1,000 ML 2000 ML IV (00:30)
[2023-05-07] MEDS: VANCOMYCIN 2,000 MG in Normal Saline 500 ML 333.3333 MG IVPB (01:30)
--- NOTE | 2023-05-07 02:08 | HPE_ITS ---
Date of service: 05/07/23 Time of Service: 02:08 Assessment and Plan Assessment and plan (1) Sepsis: Status: Acute Assessment and plan: I am concerned his shaking chills and fever represence sepsis with bacteremia. He may not have totally cleared the MSSA. He is also at risk of other infections including tick bourne illness like anaplasmosis as well as pseudomonas given his history and open foot wound. Will continue coverage with vancomycin for MRSA and aztreonam for gram negative including pseudomonas. Culturs of blood and uring pending Reasonable to cover tick-bourne illness with doxy until clear source identified. Recent soft BP at home obscures the question of hypotenstion related to infection. I am holding the ARNI and SLGT-2 for now (2) Chronic diabetic ulcer of right foot determined by examination: Status: Acute Assessment and plan: This open wound may be the source. He did have a negative MRI last admission, but osteo still a consideration. Consider repeat MRI, will need podiatry follow up (3) Elevated troponin: Status: Acute Assessment and plan: This is not consistent with acute coronary syndrome. Troponin was higher at last visit, EKG reassuring, and he is not having chest pain. He may not be renally clearling troponin as well. Even so, I will trend overnight (4) Congestive heart failure: Assessment and plan: Recent echo showed LVEF 55% with mild concentric LVH, no focal defects in ventricle. Monitor for signs of CHF while holding diuresis. (5) Diabetes mellitus type 2, insulin dependent: Status: Acute Assessment and plan: A1c reasonable at 7.6 in January, continue basal/bolus insulin but lower dose as he isn't eating now (6) Gout: Status: Chronic Assessment and plan: Has been improved on low dose allopurinol and colchicine, the latter dosed low due to carvedilol interaction (7) Acute urinary retention: Status: Acute Assessment and plan: bladder scan done due to CT findings, >500, khanna placed and patient has put out close to 2000ml urine. (8) Discharge planning issues: Status: Acute Assessment and plan: He will be admitted to the medical floor. He may need prolonged antibiotics again. Full Code. History of Present Illness History of Present Illness Chief Complaint: fever/chills Narrative: 68 yo M with CKD4, DM, CAD, PAD, and recent admission 02/18/23 when he was initially treated for Lyme Disease, then grew MSSA in his blood and required prolonged course of cefazolin who is presenting with fever since the evening of 05/05 and shaking chills. He reports he was feeling better prior to the evening of 05/05. He states he only finished his cefazolin a couple weeks ago (I could n ot find confirmation of end of therapy). He was told by his vascular surgeon that his right toe ulceration was healing well. On the evening of 05/05, a day and a half prior to admission, he started feeling feverish. He hasn't wanted to eat and feeling nauseous, has vomited food. He started getting shaking of his whole body, which he had with previous infections. Of note, during last hospitalization Entresto was added to his regimen for CHF. Chlorthalidone was stopped. He was also since started on dapaglaflozin. He states he blood pressure has been low at home since then with systolics in the 80s and 90s, causing lightheadedness that is constant. He has cut the carvedilol to 12.5mg BID from 25mg. Of note he has also previously had diabetic foot ulcers with osteomyelitis that grew psuedomonas. Review of Systems Constitutional Constitutional: Reports as per HPI, Reports anorexia, Reports chills, Reports fever(s), Denies headache(s), Reports lethargy and Denies weight loss Eyes Eyes: Denies change in vision and Denies irritation ENT Ears, Nose, Mouth, and Throat: Denies vertigo, Reports dizziness, Reports dry mouth, Denies headache(s), Denies nasal congestion, Denies nasal discharge and Denies sore throat Cardiovascular Cardiovascular: Denies chest pain, Reports lightheadedness, Denies palpitations and Denies dyspnea Respiratory Respiratory: Denies cough, Denies excessive phlegm production, Denies dyspnea and Denies wheezing Gastrointestinal Gastrointestinal: Denies abdominal pain, Denies melena, Denies hematochezia, Denies heartburn, Denies diarrhea, Reports vomiting and Denies hematemesis Genitourinary Genitourinary: Denies hematuria, Denies dysuria and Denies urinary incontinence Musculoskeletal Musculoskeletal: Denies arthralgias Integumentary/Breasts Skin/Breast: Denies rash and Reports skin ulcer (toe ulcer was looking healed, now open) Neurologic Neurologic: Denies confusion, Denies vertigo, Reports dizziness, Denies he adache(s) and Denies sensory deficit Psychiatric Psychiatric: Denies confusion and Denies mood swings Endocrine Endocrine: Denies palpitations Hematologic/Lymphatic Hematologic/Lymphatic: Denies easy bleeding Allergic/Immunologic Allergic/Immunologic: Denies wheezing PFSH All Active Problems (Updated 05/07/23 @ 03:29 by Bereket Artis) Acute urinary retention (Acute) Fever of unknown origin (Acute) Weakness (Acute) Acute renal injury (Acute) Lightheadedness (Acute) Obesity, morbid, BMI 40.0-49.9 (Acute) Chronic diabetic ulcer of right foot determined by examination (Acute) Diabetic ulcer of right foot associated with diabetes mellitus due to underlying condition (Acute) Diabetic ulcer of toe of left foot (Acute) Chronic venous insufficiency of lower extremity (Acute) Bilateral lower extremities Chronic venous stasis dermatitis (Acute) Bilateral lower extremities Chronic acquired lymphedema (Acute) Bilateral lower extremities Gouty arthritis of hand (Acute) Staphylococcus aureus bacteremia (Acute) Acute kidney injury superimposed on chronic kidney disease (Acute) Gram-positive cocci bacteremia (Acute) Sepsis (Acute) Elevated troponin (Acute) SIRS (systemic inflammatory response syndrome) (Acute) Erythema migrans (Lyme disease) (Acute) Discharge planning issues (Acute) Elevated troponin (Acute) Acute Lyme disease (Acute) Peripheral arterial disease (Acute) Nail dystrophy (Acute) Chronic foot ulcer (Acute) Hyperkalemia (Acute 07/26/14) Cellulitis (Acute) Diabetic foot infection (Acute) Leg wound, left (Acute) Diabetic retinopathy (Acute ~12/2021) B/L MODERATE-01/17 Edema (Acute) Gout (Chronic) 08/2021-diagnosed by rheumatology at [facility]-probable gout tophi of hands Obesity (Chronic) Diabetes mellitus type 2, insulin dependent (Acute) with nephropathy Chronic kidney disease (CKD) (Chronic) 08/2021- Cr 1.7 Hand arthritis (Acute) Amputation of toe (Acute) Cellulitis of foot, right (Acute) Diabetes mellitus type 2, insulin dependent (Acute) Right heart failure (Acute) Diabetic peripheral neuropathy (Chronic) Diabetic peripheral angiopathy (Chronic) Hypertension (Chronic) Chronic pain syndrome (Chronic) low back pain, drug contract at [facility]-V PMS and drug screen on 08/1221-patient on chronic hydrocodone Coronary artery disease involving iliamna coronary artery of iliamna heart with unstable angina pectoris (Chronic 08/30/17) 08-24-2017 [facility] cardiac CATH: 3 vessel disease (LAD,LCx and RCA): coronary bypass sx pending Dyspnea on exertion (Chronic 12/16/13) negative nuclear stress test echocardiogram: normal/ EF 65%/no valvulopathy Cardiol.eval. : not ischemia related ([facility]) Peripheral autonomic neuropathy in disorders classified elsewhere (Chronic 09/15/14) Hyperlipidemia (Chronic) Medical History Congestive heart failure Diabetic foot ulcer DM (diabetes mellitus) 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 secondary to diabetic ulcer, angiopathy Laceration of lower leg with foreign body Lymphedema Obesity Proliferative diabetic retinopathy of both eyes without macular edema associated with diabetes mellitus due to underlying condition (01/18/18) 01/18/18-[facility] 01/31/19-[facility] Scrotal hematoma (07/26/14) A. S/p hydrocelectomy 07/24/14 Stroke (~2008) TIA (transient ischemic attack) Toe osteomyelitis, right s/p amputation. 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 Hydrocelectomy 07/24/2014 History of cataract removal with insertion of prosthetic lens History of hydrocelectomy (07/24/14) right S/P CABG x 3 (08/30/17) [facility] [place] 08-29-2017 : no fup needed S/P femoral-popliteal bypass surgery right. 03/2020 Family History Mother No problems noted. Father Diabetes Myocardial infarction Heart disease Sister Diabetes Social History Smoking/Tobacco Use Status: Former Tobacco Use Quit Date: 09/28/83 Tobacco: How many years used: 5 Smoking risk assessment performed?: Yes Alcohol Intake: current Alcohol Intake frequency: holidays/special occasions only Drug use: Occasionally Substance use type: marijuana Pets and animals: Yes Pets and animals: cat(s) and dog(s) What type of physical activity do you participate in: none Do you feel safe at home: Yes Do you feel safe in your relationship?: Yes Meds Allergies and Home Medications Allergies Allergy/AdvReac Type Severity Reaction Status Date / Time cephalexin monohydrate Allergy Severe SOB Verified 05/06/23 20:57 [From Keflex] Penicillins Allergy Unknown Verified 05/06/23 20:57 Home Medications Medication Instructions Recorded Confirmed Type insulin syringe-needle U-100 1 mL ##3 10/14/16 04/29/23 History 26 x 1/2 (BD Insulin Syringe) inhalational spacing device #1 unit 03/15/18 04/29/23 Rx (Aerochamber Plus Flow-Vu) blood-glucose meter (FreeStyle ##1 05/21/18 04/29/23 Rx Lite Meter kit) blood sugar diagnostic (FreeStyle #400 strips 09/15/19 04/29/23 Rx Lite Strips) acetaminophen 500 mg tablet 1,000 mg PO Q6H PRN 06/14/20 05/06/23 History multivitamin 1 tab PO DAILY 06/14/20 05/06/23 History flash glucose scanning reader #1 ea 04/09/21 04/29/23 Rx (FreeStyle Alfredo 2 [place]) flash glucose sensor (FreeStyle #2 ea 04/09/21 04/29/23 Rx Alfredo 2 Sensor kit) needle (disp) 21 G 21 gauge x 1 #100 ea 04/12/21 04/29/23 Rx 1/2 (BD Regular [facility]) aspirin 81 mg tablet,delayed 81 mg PO DAILY 08/12/21 05/06/23 History release (Adult Aspirin Regimen) rosuvastatin 40 mg tablet See Rx Instructions .Route 11/27/21 05/06/23 Rx .COMPLEX #90 tabs pen needle, diabetic 31 gauge x #100 ea 10/16/22 04/29/23 Rx 5/16 (BD Ultra-Fine Short Pen Needle) clopidogrel 75 mg tablet 75 mg PO DAILY #90 tabs 12/22/22 05/06/23 Rx pregabalin 150 mg capsule 150 mg PO TID #90 caps 01/09/23 05/06/23 Rx nitroglycerin 0.4 mg sublingual 0.4 mg sublingual Q5-15M PRN chest 02/17/23 05/06/23 Rx tablet pain #25 tabs docusate sodium 100 mg capsule 100 mg PO BID #60 caps 02/27/23 05/06/23 Rx fluticasone propionate 50 1 spray intranasal DAILY PRN nasal 02/27/23 05/06/23 Rx mcg/actuation nasal congestion #16 grams spray,suspension (Flonase Allergy Relief) hydroxyzine HCl 25 mg tablet 25 mg PO HS #30 tabs 02/27/23 05/06/23 Rx insulin aspart U-100 100 unit/mL 1 - 50 unit (0.01 - 0.5 mL) subcut 02/27/23 05/06/23 Rx (3 mL) subcutaneous pen (Novolog AC #70 mL FlexPen U-100 Insulin aspart) insulin glargine 100 unit/mL (3 40 unit (0.4 mL) subcut BID #90 mL 02/27/23 05/06/23 Rx mL) subcutaneous pen (Basaglar KwikPen U-100 Insulin) sacubitril 24 mg-valsartan 26 mg 1 tab PO BID #60 tabs 02/27/23 05/06/23 Rx tablet (Entresto) cyclobenzaprine 10 mg tablet 10 mg PO TID PRN muscle spasm #60 03/13/23 05/06/23 Rx tabs allopurinol 100 mg tablet 50 mg PO DAILY 04/02/23 05/06/23 History carvedilol 12.5 mg tablet 12.5 mg PO BID #180 tabs 04/02/23 05/06/23 Rx triamcinolone acetonide 0.5 % 1 applic topical BID PRN dermatitis 04/02/23 05/06/23 History topical ointment colchicine (gout) 0.6 mg tablet 0.6 mg PO .TWICE A WEEK 04/06/23 05/06/23 History dapagliflozin propanediol 5 mg 5 mg PO DAILY 04/06/23 05/06/23 History tablet (Farxiga) allopurinol 100 mg tablet 100 mg PO DAILY 04/11/23 05/06/23 History dapagliflozin propanediol 5 mg 5 mg PO DAILY 04/11/23 05/06/23 History tablet (Farxiga) furosemide 80 mg tablet See Rx Instructions .Route 04/29/23 05/06/23 Rx .COMPLEX #60 tabs hydrocodone 7.5 mg-acetaminophen 1 tab PO BID PRN back pain #56 tabs 04/29/23 05/06/23 Rx 325 mg tablet Exam Narrative Exam Narrative: GEN: Looks clammy, uncomfortable, but alert and oriented, pleasent and cooperative, gives linear history. HEENT: Head atraumatic. Conjunctiva clear, no icterus. PEERL, EOMI. no rhinorrhea. MMM, OP benign. Neck is supple with no masses or lymphadenopathy. CV: RRR with no murmurs, gallops, or rubs. LUNGS: CTAB, mildly tachypneic but otherwise normal effort ABD: +BS, soft, NT/ND EXT: no cyanosis, clubbing. trace gomez edema MSK: firm tophi noted on hands. No major joint redness/swelling NEURO: CN 2-12 grossly intact. Normal movement of 4 extremities. Normal speech and coordination SKIN: No rashes other than some redness on shins. 4mm deep ulceration in middle of callus left 1st distal toe. PSYCH: normal mood and affect Results Imaging Abdomen CT scan report/results: report reviewed (1. Very distended urinary bladder. Otherwise no acute findings on noncontrast imaging. 2. I ncidental findings as described.) CT scan - chest: report reviewed (1. No acute findings on noncontrast imaging.) EKG: report reviewed (Sinus or ectopic atrial rhythm...P axis (-45,135) Atrial premature complexes...SV complexes w/ short R-R intvls Right bundle branch block...QRSd>120, terminal axis(90,270)) and image reviewed (no significant change from 02/24, no STEMI) Labs 05/06/23 21:00 05/06/23 21:00 Labs: Laboratory Results - last 24 hr 05/06/23 05/06/23 05/06/23 21:00 21:00 21:00 WBC 14.90 H RBC 3.79 L Hgb 11.4 L Hct 33.3 L MCV 88 MCH 30.1 MCHC 34.2 RDW 13.7 Plt Count 104 L MPV 11.6 H Immature Gran % 0.9 Neutrophils % 91.3 Lymphocytes % 1.3 Monocytes % 6.3 Eosinophils % 0.0 Basophils % 0.2 Nucleated RBC % 0.0 Absolute Neutrophils 13.60 H Absolute Lymphocytes 0.19 L Absolute Monocytes 0.94 H Absolute Eosinophils 0.00 Absolute Basophils 0.03 VBG Lactate 1.5 H Sodium 140 Potassium 4.3 Chloride 100 Carbon Dioxide 26.6 Anion Gap 13.4 H BUN 83 H* Creatinine 3.2 H Est GFR (CKD-EPI 2020) 20.43 Glucose 115 H Calcium 9.3 Magnesium 1.9 Total Bilirubin 0.8 AST 17 ALT 14 L Alkaline Phosphatase 74 Troponin I 77 H* Total Protein 8.2 Albumin 3.8 Procalcitonin Urine Color Urine Clarity Urine pH Ur Specific [place] Urine Protein Urine Ketones Urine Blood Urine Nitrite Urine Bilirubin Urine Urobilinogen Ur Leukocyte Esterase Urine RBC Urine WBC Ur Epithelial Cells Urine Crystals Urine Bacteria Urine Casts Urine Mucus Urine Other Ur Culture Indicated? Urine Glucose COVID-19 Source SARS-CoV-2 (PCR) Influenza Type A (PCR) Influenza Type B (PCR) RSV (PCR) 05/06/23 05/06/23 05/06/23 21:00 21:17 22:23 WBC RBC Hgb Hct MCV MCH MCHC RDW Plt Count MPV Immature Gran % Neutrophils % Lymphocytes % Monocytes % Eosinophils % Basophils % Nucleated RBC % Absolute Neutrophils Absolute Lymphocytes Absolute Monocytes Absolute Eosinophils Absolute Basophils VBG Lactate Sodium Potassium Chloride Carbon Dioxide Anion Gap BUN Creatinine Est GFR (CKD-EPI 2020) Glucose Calcium Magnesium Total Bilirubin AST ALT Alkaline Phosphatase Troponin I Total Protein Albumin Procalcitonin 1.3 Urine Color Yellow Urine Clarity Clear Urine pH 7.0 Ur Specific [place] 1.020 Urine Protein >=300 H Urine Ketones Negative Urine Blood Moderate H Urine Nitrite Negative Urine Bilirubin Negative Urine Urobilinogen 1.0 H Ur Leukocyte Esterase Negative Urine RBC 0-2 Urine WBC 0-2 Ur Epithelial Cells Few Urine Crystals Negative Urine Bacteria Rare Urine Casts 0-2 Fine Granular Urine Mucus Negative Urine Other Rare Transitional Ur Culture Indicated? No Urine Glucose 500 H COVID-19 Source Nasopharynx SARS-CoV-2 (PCR) Negative Influenza Type A (PCR) Negative Influenza Type B (PCR) Negative RSV (PCR) Negative Last Vital Signs Temp 37.7 C H 05/06/23 20:52 Pulse 83 05/07/23 00:07 Resp 26 H 05/07/23 00:10 BP 104/40 L 05/07/23 00:07 Pulse Ox 95 05/06/23 20:52 Time Spent Time spent with Patient: >75 minutes Time was spent: preparing to see the patient(eg.review tests), obtaining and/or reviewing separately otained hiistory, ordering medications,tests, procedures, r eferring, communicating with other health primary health care nurse, indepentently interpreting results, counseling the patient and care coordination
[2023-05-07 03:08] LABS: Troponin I 235 ng/L (<or=60)
[2023-05-07] MEDS: Aspirin E.C. 81 MG TABEC PO (08:00)
[2023-05-07] MEDS: Allopurinol 100 MG TAB 50 MG PO (08:00)
[2023-05-07] MEDS: Docusate Sodium 100 MG CAP PO ×2 (08:00→19:30)
[2023-05-07] MEDS: Clopidogrel 75 MG TAB PO (08:00)
[2023-05-07] MEDS: Carvedilol 12.5 MG TAB PO ×2 (08:00→19:30)
[2023-05-07] MEDS: Pregabalin 150 MG CAP PO ×3 (08:00→19:29)
[2023-05-07 08:35] LABS: Anion Gap 13.4 mmol/L (3-11); BUN 76 mg/dL (7-18); CO2 23.6 mmol/L (21.0-32.0); CREATININE 2.9 mg/dL (0.70-1.30); Calcium 8.7 mg/dL (8.5-10.1); Chloride 99 mmol/L (98-107); Estimated GFR 22.99 (mL/min/1.73m2); Glucose 131 mg/dL (74-106); Potassium 3.8 mmol/L (3.5-5.1); Sodium 136 mmol/L (136-145)
--- NOTE | 2023-05-07 08:53 | INITIAL_ITS ---
Date of service: 05/07/23 Time of Service: 08:53 Care Management Initial Assmt Initial Assessment REASON FOR HOSPITALIZATION:: Sepsis PREVIOUS FUNCTIONAL STATUS/SOCIAL/FAMILY SUPPORTS:: Bereket lives in a single family home in [place] with his Richardson. They have 5 children and 14 grandchildren between them. Two of Bereket's daughters live in [place] as well as 7 of the grandchildren. The remainder live locally or in [place]. 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 He uses a cane for balance and is independent at baseline. He does not receive any community services. CURRENT FUNCTIONAL STATUS:: Bereket was sitting up in bed in the ICU when CM met with him. He was polite and agreeable to conversation. Bereket stated that he is feeling pretty good. Clinically, he remains quite ill. All 4 bottles of the 2 sets of blood cultures drawn yesterday are growing gram positive cocci in chains and he was febrile at 38.5 this morning. He has a wound on his left foot (great toe) with purulent drainage and a foul odor (per Bereket). He was seen by Dr. Jean, the new vice president network development, this morning and Xrays of his foot were ordered. Per the report, it does not appear that he has osteomyelitis, however soft tissue swelling and an ulcer were appreciated. Bereket has elevated troponins which continue to rise: 235, 360, and 454, however it is not felt that he has ACS as he has no chest pain or EKG changes. ADVANCE DIRECTIVES:: none on file Has patient been provided with info about the portal/API?: Yes Did the patient sign up for the portal?: Yes CODE STATUS:: Full Code INSURANCE COVERAGE / FINANCIAL ISSUES:: Medicare Financial Assist 48 CURRENT HOME/COMMUNITY SERVICES/EQUIPMENT:: uses a cane PRIMARY CARE PHYSICIAN:: Jarrod Schultz POTENTIAL DISCHARGE NEEDS:: Follow up with PCP and plan of care PATIENT/FAMILY EDUCATION NEEDS:: Review of discharge instructions, limitations, activity, follow up plan, discuss Ask Me Three TRANSPORTATION:: via private vehicle with family PLAN:: Anticipate Bereket will discharge home with no new services. He will follow up with his community providers and plan of care and transport with family. CM will continue to support Bereket and assess for discharge needs. PFSH All Active Problems (Updated 05/07/23 @ 03:29 by Bereket Artis) Acute urinary retention (Acute) Fever of unknown origin (Acute) Weakness (Acute) Acute renal injury (Acute) Lightheadedness (Acute) Obesity, morbid, BMI 40.0-49.9 (Acute) Chronic diabetic ulcer of right foot determined by examination (Acute) Diabetic ulcer of right foot associated with diabetes mellitus due to underlying condition (Acute) Diabetic ulcer of toe of left foot (Acute) Chronic venous insufficiency of lower extremity (Acute) Bilateral lower extremities Chronic venous stasis dermatitis (Acute) Bilateral lower extremities Chronic acquired lymphedema (Acute) Bilateral lower extremities Gouty arthritis of hand (Acute) Staphylococcus aureus bacteremia (Acute) Acute kidney injury superimposed on chronic kidney disease (Acute) Gram-positive cocci bacteremia (Acute) Sepsis (Acute) Elevated troponin (Acute) SIRS (systemic inflammatory response syndrome) (Acute) Erythema migrans (Lyme disease) (Acute) Discharge planning issues (Acute) Elevated troponin (Acute) Acute Lyme disease (Acute) Peripheral arterial disease (Acute) Nail dystrophy (Acute) Chronic foot ulcer (Acute) Hyperkalemia (Acute 07/26/14) Cellulitis (Acute) Diabetic foot infection (Acute) Leg wound, left (Acute) Diabetic retinopathy (Acute ~12/2021) B/L MODERATE-01/17 Edema (Acute) Gout (Chronic) 08/2021-diagnosed by rheumatology at [facility]-probable gout tophi of hands Obesity (Chronic) Diabetes mellitus type 2, insulin dependent (Acute) with nephropathy Chronic kidney disease (CKD) (Chronic) 08/2021- Cr 1.7 Hand arthritis (Acute) Amputation of toe (Acute) Cellulitis of foot, right (Acute) Diabetes mellitus type 2, insulin dependent (Acute) Right heart failure (Acute) Diabetic peripheral neuropathy (Chronic) Diabetic peripheral angiopathy (Chronic) Hypertension (Chronic) Chronic pain syndrome (Chronic) low back pain, drug contract at [facility]-V PMS and drug screen on 08/1221-patient on chronic hydrocodone Coronary artery disease involving [place] coronary artery of [place] heart with unstable angina pectoris (Chronic 08/30/17) [place] [facility] [place]: 3 vessel disease (LAD,LCx and RCA): coronary bypass sx pending Dyspnea on exertion (Chronic 12/16/13) negative nuclear stress test echocardiogram: normal/ EF 65%/no valvulopathy Cardiol.eval. : not ischemia related ([facility]) Peripheral autonomic neuropathy in disorders classified elsewhere (Chronic ) Hyperlipidemia (Chronic) Medical History Congestive heart failure Diabetic foot ulcer DM (diabetes mellitus) 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 secondary to diabetic ulcer, angiopathy Laceration of lower leg with foreign body Lymphedema Obesity Proliferative diabetic retinopathy of both eyes without macular edema associated with diabetes mellitus due to underlying condition (01/18/18) [place] [place] [place]rotal hematoma (07/26/14) A. S/p hydrocelectomy 07/24/14 Stroke (~2008) TIA (transient ischemic attack) Toe osteomyelitis, right s/p amputation. 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 Hydrocelectomy 07/24/2014 History of cataract removal with insertion of prosthetic lens History of hydrocelectomy (07/24/14) right S/P CABG x 3 (08/30/17) [facility] [place] : no fup needed S/P femoral-popliteal bypass surgery right. 03/2020 Family History Mother No problems noted. Father Diabetes Myocardial infarction Heart disease Sister Diabetes Social History Smoking/Tobacco Use Status: Former Tobacco Use Quit Date: 09/28/83 Tobacco: How many years used: 5 Smoking risk assessment performed?: Yes Alcohol Intake: current Alcohol Intake frequency: holidays/special occasions only Drug use: Occasionally Substance use type: marijuana Pets and animals: Yes Pets and animals: cat(s) and dog(s) What type of physical activity do you participate in: none Do you feel safe at home: Yes Do you feel safe in your relationship?: Yes
[2023-05-07] MEDS: Insulin Aspart 300 UNITS/3 ML PEN SC ×3 (09:12→17:48)
[2023-05-07] MEDS: Enoxaparin 40 MG/0.4 ML SYR SC (09:12)
[2023-05-07] MEDS: Insulin Glargine 300 UNITS/3 ML PEN 30 UNITS SC ×2 (09:13→19:33)
[2023-05-07] MEDS: Acetaminophen 500 MG TAB 1000 MG PO ×2 (09:29→22:36)
[2023-05-07 09:34] LABS: Troponin I 360 ng/L (<or=60)
[2023-05-07 09:37] LABS: HCT 30.9 % (40.0-50.0); HGB 10.5 g/dL (13.5-17.5); MCH 30.3 pg (27.0-33.0); MCV 89 fL (80-95); RBC 3.47 10^6/uL (4.36-5.78); RDW-SD 45.1 fL; WBC 12.05 10^3/uL (4.4-10.8)
[2023-05-07 09:39] LABS: Abs Immature Grans 0.06 10^3/uL (0.0-0.06); Absolute Basophil Count 0.03 10^3/uL (0.0-0.2); Absolute Lymphocyte Count 0.35 10^3/uL (1.2-3.4); Absolute Monocyte Count 0.63 10^3/uL (0.1-0.8); Absolute Neutrophil Count 10.98 10^3/uL (1.2-6.7); Basophils % 0.2; Immature Grans % 0.5; Lymphocytes % 2.9; MPV 11.5 fL (8.0-11.0); Monocytes % 5.2; Neutrophils % 91.2; Platelet Count 96 10^3/uL (130-400)
--- NOTE | 2023-05-07 10:00 | DI.RAD_ITS ---
Exam(s) XR FOOT LT COMPLETE EXAM: XR FOOT LT COMPLETE CLINICAL HISTORY: osteomyelitis left great toe. TECHNIQUE: 2D digital imaging was performed of the left foot. Three images were obtained. AP, obli que and lateral views were obtained. COMPARISON: CR XR FOOT LT COMPLETE from 02/24/2023 FINDINGS: BONES: No acute fracture is present. No bony destructive lesion is seen. The proximal and distal phal anges of the great toe have a normal appearance. No destructive changes are seen to suggest osteomye litis radiographically. There again seen findings of a prior 5th toe amputation. Hammertoe deformit ies of the 2nd, 3rd and 4th toes are again noted. JOINTS: No dislocation present. SOFT TISSUE: There is a small soft tissue defect at the medial inferior aspect of the great toe which may represent an ulcer. Extensive atherosclerosis is present. There is diffuse soft tissue swellin g of the foot. IMPRESSION: 1. No radiographic evidence of osteomyelitis of the great toe. 2. Soft tissue defect along the inferomedial aspect of the great toe suspicious for an ulcer. 3. Prior 5th toe amputation. 4. Diffuse soft tissue swelling of the foot. DATA REPOSITORY: RADIATION DOSE DELIVERED:
--- NOTE | 2023-05-07 10:00 | DI.MRI_ITS ---
Exam(s) MR LOWER EXTREMITY LT WO EXAM: MR LOWER EXTREMITY LT WO CLINICAL HISTORY: osteomyelitis left great toe TECHNIQUE: Multiplanar multisequence MRI was performed without intravenous contrast. COMPARISON: MR MR LOWER EXTREMITY LT WO from 02/24/2023 FINDINGS: There is normal signal in the 1st metatarsal bone and great toe. There are no findings to suggest os teomyelitis of the great toe. There is no focal fluid collection seen in the soft tissues to suggest an abscess in the great toe. There is a soft tissue defect on the plantar and medial aspect of the great toe which may represent an ulcer. There does appear to be a mild amount of edema in the soft t issues of the great toe. IMPRESSION: 1. There is no evidence of osteomyelitis involving the great toe. 2. Soft tissue defect on the plantar medial aspect of the great toe which may represent an ulcer. 3. No abscess is seen in the great toe. DATA REPOSITORY:
[2023-05-07 10:15] LABS: Troponin I 454 ng/L (<or=60)
--- NOTE | 2023-05-07 13:05 | W.PALLCONSUL ---
Date of service: 05/07/23 Time of Service: 13:06 History of Present Illness Narrative: Bereket Melara was seen for Palliative consultation to establish care in the setting of chronic medical conditions. He is currently admitted to the ICU for Diabetic foot ulcer with positive blood cultures. Podiatry recommends 6 weeks of Abx in the setting of wound with probe to bone. He has Hx of IDDM with peripheral neuropathy, CKD, obesity, recent MSSA bacteremia, CAD, HLD. He is a FULL CODE. He was agreeable to and engaged in Palliative visit in the hospital but he does not feel he needs the service after discharge. He lives with his . He feels his will take care of anything that comes up. He also has 2 daughters in [place] and one that lives close by and helps him frequently. Discussed what Palliative can offer, however, he is not interested. He politely declines outpatient f/u. He was accepting of Palliative meeting with him again while hospitalized as indicated. Assessment and Plan Assessment and plan (1) Ulcer of left foot with bone involvement without evidence of necrosis: Status: Acute (2) Osteomyelitis: Status: Acute (3) Gram-positive cocci bacteremia: Status: Acute (4) Diabetes mellitus type 2, insulin dependent: Status: Acute (5) Chronic kidney disease (CKD): Status: Chronic (6) Diabetic peripheral neuropathy: Status: Chronic (7) Diabetic peripheral angiopathy: Status: Chronic (8) Palliative care encounter: Status: Acute Assessment and plan: Bereket Melara was seen for Palliative consultation to establish care in the setting of chronic medical conditions. He is currently admitted to the ICU for Diabetic foot ulcer with positive blood cultures. Podiatry recommends 6 weeks of Abx in the setting of wound with probe to bone. He has Hx of IDDM with peripheral neuropathy, CKD4, obesity, recent MSSA bacteremia, CAD, HLD, recent Lyme disease with Tx. He is a FULL CODE. He was agreeable to and engaged in Palliative visit in the hospital but he does not feel he needs the service after discharge. He lives with his . He feels his will take care of anything that comes up. He also has 2 daughters in [place] and one that lives close by and helps him frequently. Discussed what Palliative can offer, however, he is not interested. He politely declines outpatient f/u. He was accepting of Palliative meeting with him again while hospitalized as indicated. Review of Systems Narrative: He reports he is feeling much better than when he presented. He is eating and drinking and tolerating his diet. [facility] All Active Problems (Updated 05/08/23 @ 15:09 by Jamie Corona MD) Hyponatremia (Acute) Palliative care encounter (Acute) Osteomyelitis (Acute) Ulcer of left foot with bone involvement without evidence of necrosis (Acute) Acute urinary retention (Acute) Fever of unknown origin (Acute) Weakness (Acute) Acute renal injury (Acute) Lightheadedness (Acute) Obesity, morbid, BMI 40.0-49.9 (Acute) Chronic diabetic ulcer of right foot determined by examination (Acute) Diabetic ulcer of right foot associated with diabetes mellitus due to underlying condition (Acute) Diabetic ulcer of toe of left foot (Acute) Chronic venous insufficiency of lower extremity (Acute) Bilateral lower extremities Chronic venous stasis dermatitis (Acute) Bilateral lower extremities Chronic acquired lymphedema (Acute) Bilateral lower extremities Gouty arthritis of hand (Acute) Staphylococcus aureus bacteremia (Acute) Acute kidney injury superimposed on chronic kidney disease (Acute) Gram-positive cocci bacteremia (Acute) Sepsis (Acute) Elevated troponin (Acute) SIRS (systemic inflammatory response syndrome) (Acute) Erythema migrans (Lyme disease) (Acute) Discharge planning issues (Acute) Elevated troponin (Acute) Acute Lyme disease (Acute) Peripheral arterial disease (Acute) Nail dystrophy (Acute) Chronic foot ulcer (Acute) Hyperkalemia (Acute 07/26/14) Cellulitis (Acute) Diabetic foot infection (Acute) Leg wound, left (Acute) Diabetic retinopathy (Acute ~12/2021) B/L MODERATE-01/17 Edema (Acute) Gout (Chronic) 08/2021-diagnosed by rheumatology at [facility]-probable gout tophi of hands Obesity (Chronic) Diabetes mellitus type 2, insulin dependent (Acute) with nephropathy Chronic kidney disease (CKD) (Chronic) 08/2021- Cr 1.7 Hand arthritis (Acute) Amputation of toe (Acute) Cellulitis of foot, right (Acute) Diabetes mellitus type 2, insulin dependent (Acute) Right heart failure (Acute) Diabetic peripheral neuropathy (Chronic) Diabetic peripheral angiopathy (Chronic) Hypertension (Chronic) Chronic pain syndrome (Chronic) low back pain, drug contract at [facility]-V PMS and drug screen on 08/1221-patient on chronic hydrocodone Coronary artery disease involving [place] coronary artery of [place] heart with unstable angina pectoris (Chronic 08/30/17) 08-24-2017 [facility] [place] CATH: 3 vessel disease (LAD,LCx and RCA): coronary bypass sx pending Dyspnea on exertion (Chronic 12/16/13) negative nuclear stress test echocardiogram: normal/ EF 65%/no valvulopathy Cardiol.eval. : not ischemia related ([facility]) Peripheral autonomic neuropathy in disorders classified elsewhere (Chronic 09/15/14) Hyperlipidemia (Chronic) Medical History Congestive heart failure Diabetic foot ulcer DM (diabetes mellitus) 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 secondary to diabetic ulcer, angiopathy Laceration of lower leg with foreign body Lymphedema Obesity Proliferative diabetic retinopathy of both eyes without macular edema associated with diabetes mellitus due to underlying condition (01/18/18) 01/18/18-[facility] [place] [place] Scrotal hematoma (07/26/14) A. S/p hydrocelectomy 07/24/14 Stroke (~2008) TIA (transient ischemic attack) Toe osteomyelitis, right s/p amputation. 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 Hydrocelectomy 07/24/2014 History of cataract removal with insertion of prosthetic lens History of hydrocelectomy (07/24/14) right S/P CABG x 3 [place]/17[place] [facility] [place] fup needed S/P femoral-popliteal bypass surgery right. 03/2020 Family History Mother No problems noted. Father Diabetes Myocardial infarction Heart disease Sister Diabetes Social History Smoking/Tobacco Use Status: Former Tobacco Use Quit Date: 09/28/83 Tobacco: How many years used: 5 Smoking risk assessment performed?: Yes Alcohol Intake: current Alcohol Intake frequency: holidays/special occasions only Drug use: Occasionally Substance use type: marijuana Pets and animals: Yes Pets and animals: cat(s) and dog(s) What type of physical activity do you participate in: none Do you feel safe at home: Yes Do you feel safe in your relationship?: Yes Exam Narrative Exam Narrative: General: very pleasant, middle aged, overweight man. He is laying in his hospital bed. He is awake, alert and oriented. Talkative. In NAD. HEENT: normocephalic, atraumatic, EOMI, mmm. Neck: supple Respiratory: respirations appear even and unlabored. GI: abd round, soft. Extremities: L foot with dressing intact. Results Last Vital Signs Temp 36.8 C 05/07/23 12:46 Pulse 63 05/07/23 12:46 Resp 14 05/07/23 12:46 BP 102/51 L 05/07/23 12:46 Pulse Ox 97 05/07/23 12:46 Labs 05/08/23 05:52 05/08/23 05:52 Labs: Laboratory Results - last 24 hr 05/06/23 05/06/23 05/06/23 21:00 21:00 21:00 WBC 14.90 H RBC 3.79 L Hgb 11.4 L Hct 33.3 L MCV 88 MCH 30.1 MCHC 34.2 RDW 13.7 Plt Count 104 L MPV 11.6 H Immature Gran % 0.9 Neutrophils % 91.3 Lymphocytes % 1.3 Monocytes % 6.3 Eosinophils % 0.0 Basophils % 0.2 Nucleated RBC % 0.0 Absolute Neutrophils 13.60 H Absolute Lymphocytes 0.19 L Absolute Monocytes 0.94 H Absolute Eosinophils 0.00 Absolute Basophils 0.03 VBG Lactate 1.5 H Sodium 140 Potassium 4.3 Chloride 100 Carbon Dioxide 26.6 Anion Gap 13.4 H BUN 83 H* Creatinine 3.2 H Est GFR (CKD-EPI 2020) 20.43 Glucose 115 H Calcium 9.3 Magnesium 1.9 Total Bilirubin 0.8 AST 17 ALT 14 L Alkaline Phosphatase 74 Troponin I 77 H* Total Protein 8.2 Albumin 3.8 Procalcitonin Urine Color Urine Clarity Urine pH Ur Specific [place] Urine Protein Urine Ketones Urine Blood Urine Nitrite Urine Bilirubin Urine Urobilinogen Ur Leukocyte Esterase Urine RBC Urine WBC Ur Epithelial Cells Urine Crystals Urine Bacteria Urine Casts Urine Mucus Urine Other Ur Culture Indicated? Urine Glucose COVID-19 Source SARS-CoV-2 (PCR) Influenza Type A (PCR) Influenza Type B (PCR) RSV (PCR) 05/06/23 05/06/23 05/06/23 21:00 21:17 22:23 WBC RBC Hgb Hct MCV MCH MCHC RDW Plt Count MPV Immature Gran % Neutrophils % Lymphocytes % Monocytes % Eosinophils % Basophils % Nucleated RBC % Absolute Neutrophils Absolute Lymphocytes Absolute Monocytes Absolute Eosinophils Absolute Basophils VBG Lactate Sodium Potassium Chloride Carbon Dioxide Anion Gap BUN Creatinine Est GFR (CKD-EPI 2020) Glucose Calcium Magnesium Total Bilirubin AST ALT Alkaline Phosphatase Troponin I Total Protein Albumin Procalcitonin 1.3 Urine Color Yellow Urine Clarity Clear Urine pH 7.0 Ur Specific [place] 1.020 Urine Protein >=300 H Urine Ketones Negative Urine Blood Moderate H Urine Nitrite Negative Urine Bilirubin Negative Urine Urobilinogen 1.0 H Ur Leukocyte Esterase Negative Urine RBC 0-2 Urine WBC 0-2 Ur Epithelial Cells Few Urine Crystals Negative Urine Bacteria Rare Urine Casts 0-2 Fine Granular Urine Mucus Negative Urine Other Rare Transitional Ur Culture Indicated? No Urine Glucose 500 H COVID-19 Source Nasopharynx SARS-CoV-2 (PCR) Negative Influenza Type A (PCR) Negative Influenza Type B (PCR) Negative RSV (PCR) Negative 05/07/23 05/07/23 05/07/23 02:28 06:16 06:16 WBC RBC Hgb Hct MCV MCH MCHC RDW Plt Count MPV Immature Gran % Neutrophils % Lymphocytes % Monocytes % Eosinophils % Basophils % Nucleated RBC % Absolute Neutrophils Absolute Lymphocytes Absolute Monocytes Absolute Eosinophils Absolute Basophils VBG Lactate Sodium 136 Potassium 3.8 Chloride 99 Carbon Dioxide 23.6 Anion Gap 13.4 H BUN 76 H Creatinine 2.9 H Est GFR (CKD-EPI 2020) 22.99 Glucose 131 H Calcium 8.7 Magnesium Total Bilirubin AST ALT Alkaline Phosphatase Troponin I 235 H* 360 H* Total Protein Albumin Procalcitonin Urine Color Urine Clarity Urine pH Ur Specific [place] Urine Protein Urine Ketones Urine Blood Urine Nitrite Urine Bilirubin Urine Urobilinogen Ur Leukocyte Esterase Urine RBC Urine WBC Ur Epithelial Cells Urine Crystals Urine Bacteria Urine Casts Urine Mucus Urine Other Ur Culture Indicated? Urine Glucose COVID-19 Source SARS-CoV-2 (PCR) Influenza Type A (PCR) Influenza Type B (PCR) RSV (PCR) 05/07/23 05/07/23 06:16 09:20 WBC 12.05 H RBC 3.47 L Hgb 10.5 L Hct 30.9 L MCV 89 MCH 30.3 MCHC 34.0 RDW 14.0 Plt Count 96 L MPV 11.5 H Immature Gran % 0.5 Neutrophils % 91.2 Lymphocytes % 2.9 Monocytes % 5.2 Eosinophils % 0.0 Basophils % 0.2 Nucleated RBC % 0.0 Absolute Neutrophils 10.98 H Absolute Lymphocytes 0.35 L Absolute Monocytes 0.63 Absolute Eosinophils 0.00 Absolute Basophils 0.03 VBG Lactate Sodium Potassium Chloride Carbon Dioxide Anion Gap BUN Creatinine Est GFR (CKD-EPI 2020) Glucose Calcium Magnesium Total Bilirubin AST ALT Alkaline Phosphatase Troponin I 454 H* Total Protein Albumin Procalcitonin Urine Color Urine Clarity Urine pH Ur Specific [place] Urine Protein Urine Ketones Urine Blood Urine Nitrite Urine Bilirubin Urine Urobilinogen Ur Leukocyte Esterase Urine RBC Urine WBC Ur Epithelial Cells Urine Crystals Urine Bacteria Urine Casts Urine Mucus Urine Other Ur Culture Indicated? Urine Glucose COVID-19 Source SARS-CoV-2 (PCR) Influenza Type A (PCR) Influenza Type B (PCR) RSV (PCR)
[2023-05-07 13:50] LABS: Troponin I 443 ng/L (<or=60)
--- NOTE | 2023-05-07 15:38 | W.PODCONSULT ---
Date of service: 05/07/23 Time of Service: 09:30 Assessment and Plan Assessment and plan (1) Ulcer of left foot with bone involvement without evidence of necrosis: Status: Acute Assessment and plan: Patient has a full-thickness ulcer to the left at this time there is no periwound erythema no edema no active drainage and very mild malodor however there is probe to bone at this time. With probe to bone I would recommend antibiotics for 6 weeks. X-ray images were reviewed today and fortunately, there is no periosteal reaction indicating osteomyelitis to this area however with an ulcer that probes to bone I recommend IV antibiotics for 6 weeks. I advised the patient I recommend debridement of the ulcer today. With patient consent, the ulcer was debrided with a sterile #11 blade of all necrotic nonviable tissue. There was probe to periosteum noted. There is no active drainage or malodor noted however there is some mild malodor. No bogginess no crepitus no fluctuance noted at this time. Cultures were taken and sent. No bleeding was noted at the time of debridement. Patient was advised that given the scant bleeding patient is at risk for worsening infection and delayed healing possibly limb loss. Patient is to continue follow-up with vascular surgery. Patient did have bleeding to the outer layer of dressings. Hemostasis was achieved with pressure dressings were then applied with 4 x 4, Kerlix, Hilario wrap. I recommend an MRI to evaluate for acute osteomyelitis. MRI results are pending at this time. No surgical intervention is indicated at this time however if the patient does not respond with antibiotics and the leukocytosis persists we can consider resection of bone directly underneath the ulcer with a biopsy for a more targeted approach for antibiotics/source control and exploration. Nursing to change dressings daily with 4 x 4 gauze, Kerlix, Hilario wrap. Patient to remain protected weightbearing to the left lower extremity. May heel touch however avoid forefoot loading. I recommend a surgical shoe. (2) Osteomyelitis: Status: Acute Assessment and plan: See above (3) Gram-positive cocci bacteremia: Status: Acute Assessment and plan: Please continue IV antibiotics as per medicine, their recommendations are greatly appreciated. (4) Diabetes mellitus type 2, insulin dependent: Status: Acute Assessment and plan: As per medicine (5) Chronic kidney disease (CKD): Status: Chronic Assessment and plan: As per medicine. (6) Amputation of toe: Status: Acute Assessment and plan: Stable and healed Qualifiers: Laterality: right Qualified Code(s): S98.131A - Complete traumatic amputation of one right lesser toe, initial encounter (7) Diabetic peripheral neuropathy: Status: Chronic Assessment and plan: As per medicine. (8) Diabetic peripheral angiopathy: Status: Chronic Assessment and plan: Patient continue to follow-up with vascular. History of Present Illness Narrative: 68 yo M with CKD4, DM, CAD, PAD, and recent admission 02/18/23 when he was initially treated for Lyme Disease, then grew MSSA in his blood and required prolonged course of cefazolin who is presenting with fever since the evening of 05/05 and shaking chills.? He reports he was feeling better prior to the evening of 05/05.?He states he had shaking chills and was brought to the ED by an ambulance which his called for him. He reports feeling week. He reports an ulcer to the left great toe which has been present now for several months. He states he saw Vascular recently and had revascularization to the left lower extremity recently. He states The Vascular surgeon was not able to revascularize the left lower extremity however the was advised the ulcer is healing well. With respect to the ulcer at this time, he denies redness, swelling, drainaage or malodor from the wound. ? Consults Consult date: 05/07/23 [facility] All Active Problems (Updated 05/07/23 @ 15:51 by Julia Jean DPM) Osteomyelitis (Acute) Ulcer of left foot with bone involvement without evidence of necrosis (Acute) Acute urinary retention (Acute) Fever of unknown origin (Acute) Weakness (Acute) Acute renal injury (Acute) Lightheadedness (Acute) Obesity, morbid, BMI 40.0-49.9 (Acute) Chronic diabetic ulcer of right foot determined by examination (Acute) Diabetic ulcer of right foot associated with diabetes mellitus due to underlying condition (Acute) Diabetic ulcer of toe of left foot (Acute) Chronic venous insufficiency of lower extremity (Acute) Bilateral lower extremities Chronic venous stasis dermatitis (Acute) Bilateral lower extremities Chronic acquired lymphedema (Acute) Bilateral lower extremities Gouty arthritis of hand (Acute) Staphylococcus aureus bacteremia (Acute) Acute kidney injury superimposed on chronic kidney disease (Acute) Gram-positive cocci bacteremia (Acute) Sepsis (Acute) Elevated troponin (Acute) SIRS (systemic inflammatory response syndrome) (Acute) Erythema migrans (Lyme disease) (Acute) Discharge planning issues (Acute) Elevated troponin (Acute) Acute Lyme disease (Acute) Peripheral arterial disease (Acute) Nail dystrophy (Acute) Chronic foot ulcer (Acute) Hyperkalemia (Acute 07/26/14) Cellulitis (Acute) Diabetic foot infection (Acute) Leg wound, left (Acute) Diabetic retinopathy (Acute ~12/2021) B/L MODERATE-01/17 Edema (Acute) Gout (Chronic) 08/2021-diagnosed by rheumatology at [facility]-probable gout tophi of hands Obesity (Chronic) Diabetes mellitus type 2, insulin dependent (Acute) with nephropathy Chronic kidney disease (CKD) (Chronic) 08/2021- Cr 1.7 Hand arthritis (Acute) Amputation of toe (Acute) Cellulitis of foot, right (Acute) Diabetes mellitus type 2, insulin dependent (Acute) Right heart failure (Acute) Diabetic peripheral neuropathy (Chronic) Diabetic peripheral angiopathy (Chronic) Hypertension (Chronic) Chronic pain syndrome (Chronic) low back pain, drug contract at [facility]-V PMS and drug screen on 08/1221-patient on chronic hydrocodone Coronary artery disease involving [place] coronary artery of [place] heart with unstable angina pectoris (Chronic 08/30/17) [place] [facility] [place]: 3 vessel disease (LAD,LCx and RCA): coronary bypass sx pending Dyspnea on exertion (Chronic 12/16/13) negative nuclear stress test echocardiogram: normal/ EF 65%/no valvulopathy Cardiol.eval. : not ischemia related ([facility]) Peripheral autonomic neuropathy in disorders classified elsewhere (Chronic 09/15/14) Hyperlipidemia (Chronic) Medical History Congestive heart failure Diabetic foot ulcer DM (diabetes mellitus) 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 secondary to diabetic ulcer, angiopathy Laceration of lower leg with foreign body Lymphedema Obesity Proliferative diabetic retinopathy of both eyes without macular edema associated with diabetes mellitus due to underlying condition (01/18/18[place] [place] [place]rotal hematoma (07/26/14) A. S/p hydrocelectomy 07/24/14 Stroke (~2008) TIA (transient ischemic attack) Toe osteomyelitis, right s/p amputation. 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 Hydrocelectomy 07/24/2014 History of cataract removal with insertion of prosthetic lens History of hydrocelectomy (07/24/14) right S/P CABG x 3 (08/30/17[place] [facility] [place] no fup needed S/P femoral-popliteal bypass surgery right. 03/2020 Family History Mother No problems noted. Father Diabetes Myocardial infarction Heart disease Sister Diabetes Social History Smoking/Tobacco Use Status: Former Tobacco Use Quit Date: 09/28/83 Tobacco: How many years used: 5 Smoking risk assessment performed?: Yes Alcohol Intake: current Alcohol Intake frequency: holidays/special occasions only Drug use: Occasionally Substance use type: marijuana Pets and animals: Yes Pets and animals: cat(s) and dog(s) What type of physical activity do you participate in: none Do you feel safe at home: Yes Do you feel safe in your relationship?: Yes Exam Extrem Other: Bilateral lower extremity physical exam: Derm: Full-thickness ulcer noted to the plantar medial aspect of the left hallux IPJ measuring approximately 5 mm x 5 mm x 0.4 mm in depth, the borders are hyperkeratotic there is probe to periosteum noted at this time there is no active purulence, no periwound erythema no edema no drainage very mild malodor noted upon debridement. Otherwise skin is warm dry and supple bilaterally no other open lesions or ulcerations noted bilaterally. Vascular: DP/PT pulses are nonpalpable bilaterally there is edema noted bilaterally. Some varicosities and telangiectasias noted bilaterally hair growth is noted to be absent bilaterally CFT is delayed to all 8 digits bilaterally. Some venous skin changes noted bilaterally. MSK: Muscle strength is noted to be diminished bilateral lower extremity at this time likely secondary to current illness. There is evidence for partial first ray amputation to the right foot and partial fifth ray amputation to the left. No tenderness to palpation noted bilaterally C-shaped foot noted bilaterally. Neuro: Light touch sensation noted to be absent bilateral lower extremity Results Last Vital Signs Temp 98.2 F 05/07/23 12:46 Pulse 58 L 05/07/23 14:45 Resp 23 05/07/23 15:00 BP 108/41 L 05/07/23 15:00 Pulse Ox 95 05/07/23 15:00 Labs 05/07/23 06:16 05/07/23 06:16 Labs: Laboratory Results - last 24 hr 05/06/23 05/06/23 05/06/23 21:00 21:00 21:00 WBC 14.90 H RBC 3.79 L Hgb 11.4 L Hct 33.3 L MCV 88 MCH 30.1 MCHC 34.2 RDW 13.7 Plt Count 104 L MPV 11.6 H Immature Gran % 0.9 Neutrophils % 91.3 Lymphocytes % 1.3 Monocytes % 6.3 Eosinophils % 0.0 Basophils % 0.2 Nucleated RBC % 0.0 Absolute Neutrophils 13.60 H Absolute Lymphocytes 0.19 L Absolute Monocytes 0.94 H Absolute Eosinophils 0.00 Absolute Basophils 0.03 VBG Lactate 1.5 H Sodium 140 Potassium 4.3 Chloride 100 Carbon Dioxide 26.6 Anion Gap 13.4 H BUN 83 H* Creatinine 3.2 H Est GFR (CKD-EPI 2020) 20.43 Glucose 115 H Calcium 9.3 Magnesium 1.9 Total Bilirubin 0.8 AST 17 ALT 14 L Alkaline Phosphatase 74 Troponin I 77 H* Total Protein 8.2 Albumin 3.8 Procalcitonin Urine Color Urine Clarity Urine pH Ur Specific Brandon Urine Protein Urine Ketones Urine Blood Urine Nitrite Urine Bilirubin Urine Urobilinogen Ur Leukocyte Esterase Urine RBC Urine WBC Ur Epithelial Cells Urine Crystals Urine Bacteria Urine Casts Urine Mucus Urine Other Ur Culture Indicated? Urine Glucose COVID-19 Source SARS-CoV-2 (PCR) Influenza Type A (PCR) Influenza Type B (PCR) RSV (PCR) 05/06/23 05/06/23 05/06/23 21:00 21:17 22:23 WBC RBC Hgb Hct MCV MCH MCHC RDW Plt Count MPV Immature Gran % Neutrophils % Lymphocytes % Monocytes % Eosinophils % Basophils % Nucleated RBC % Absolute Neutrophils Absolute Lymphocytes Absolute Monocytes Absolute Eosinophils Absolute Basophils VBG Lactate Sodium Potassium Chloride Carbon Dioxide Anion Gap BUN Creatinine Est GFR (CKD-EPI 2020) Glucose Calcium Magnesium Total Bilirubin AST ALT Alkaline Phosphatase Troponin I Total Protein Albumin Procalcitonin 1.3 Urine Color Yellow Urine Clarity Clear Urine pH 7.0 Ur Specific Brandon 1.020 Urine Protein >=300 H Urine Ketones Negative Urine Blood Moderate H Urine Nitrite Negative Urine Bilirubin Negative Urine Urobilinogen 1.0 H Ur Leukocyte Esterase Negative Urine RBC 0-2 Urine WBC 0-2 Ur Epithelial Cells Few Urine Crystals Negative Urine Bacteria Rare Urine Casts 0-2 Fine Granular Urine Mucus Negative Urine Other Rare Transitional Ur Culture Indicated? No Urine Glucose 500 H COVID-19 Source Nasopharynx SARS-CoV-2 (PCR) Negative Influenza Type A (PCR) Negative Influenza Type B (PCR) Negative RSV (PCR) Negative 05/07/23 05/07/23 05/07/23 02:28 06:16 06:16 WBC RBC Hgb Hct MCV MCH MCHC RDW Plt Count MPV Immature Gran % Neutrophils % Lymphocytes % Monocytes % Eosinophils % Basophils % Nucleated RBC % Absolute Neutrophils Absolute Lymphocytes Absolute Monocytes Absolute Eosinophils Absolute Basophils VBG Lactate Sodium 136 Potassium 3.8 Chloride 99 Carbon Dioxide 23.6 Anion Gap 13.4 H BUN 76 H Creatinine 2.9 H Est GFR (CKD-EPI 2020) 22.99 Glucose 131 H Calcium 8.7 Magnesium Total Bilirubin AST ALT Alkaline Phosphatase Troponin I 235 H* 360 H* Total Protein Albumin Procalcitonin Urine Color Urine Clarity Urine pH Ur Specific Brandon Urine Protein Urine Ketones Urine Blood Urine Nitrite Urine Bilirubin Urine Urobilinogen Ur Leukocyte Esterase Urine RBC Urine WBC Ur Epithelial Cells Urine Crystals Urine Bacteria Urine Casts Urine Mucus Urine Other Ur Culture Indicated? Urine Glucose COVID-19 Source SARS-CoV-2 (PCR) Influenza Type A (PCR) Influenza Type B (PCR) RSV (PCR) 05/07/23 05/07/23 05/07/23 06:16 09:20 13:15 WBC 12.05 H RBC 3.47 L Hgb 10.5 L Hct 30.9 L MCV 89 MCH 30.3 MCHC 34.0 RDW 14.0 Plt Count 96 L MPV 11.5 H Immature Gran % 0.5 Neutrophils % 91.2 Lymphocytes % 2.9 Monocytes % 5.2 Eosinophils % 0.0 Basophils % 0.2 Nucleated RBC % 0.0 Absolute Neutrophils 10.98 H Absolute Lymphocytes 0.35 L Absolute Monocytes 0.63 Absolute Eosinophils 0.00 Absolute Basophils 0.03 VBG Lactate Sodium Potassium Chloride Carbon Dioxide Anion Gap BUN Creatinine Est GFR (CKD-EPI 2020) Glucose Calcium Magnesium Total Bilirubin AST ALT Alkaline Phosphatase Troponin I 454 H* 443 H* Total Protein Albumin Procalcitonin Urine Color Urine Clarity Urine pH Ur Specific Brandon Urine Protein Urine Ketones Urine Blood Urine Nitrite Urine Bilirubin Urine Urobilinogen Ur Leukocyte Esterase Urine RBC Urine WBC Ur Epithelial Cells Urine Crystals Urine Bacteria Urine Casts Urine Mucus Urine Other Ur Culture Indicated? Urine Glucose COVID-19 Source SARS-CoV-2 (PCR) Influenza Type A (PCR) Influenza Type B (PCR) RSV (PCR) Imaging Imaging Studies: Patient Name: Bereket Melara Unit #: [id number] Loc: ICU ? Ordering Provider:? Julia Jean DPRosalba Status: ADM IN ? Primary Care Provider: Jarrod Schultz NP Date of Exam: 05/07/23 Sex: M ? Admission Date: 05/07/23? : 1955 ? Age: 68 ? Exam(s) XR FOOT LT COMPLETE EXAM:? XR FOOT LT COMPLETE CLINICAL HISTORY: ? osteomyelitis left great toe.? TECHNIQUE:? 2D digital imaging was performed of the left foot.? Three images were obtained.? AP, oblique and lateral views were obtained. COMPARISON:? CR XR FOOT LT COMPLETE from 02/24/2023 FINDINGS: BONES: No acute fracture is present. No bony destructive lesion is seen. The proximal and distal phalanges of the great toe have a normal appearance.? No destructive changes are seen to suggest osteomyelitis radiographically.? There again seen findings of a prior 5th toe amputation.? Hammertoe deformities of the 2nd, 3rd and 4th toes are again noted. JOINTS: No dislocation present. SOFT TISSUE: There is a small soft tissue defect at the medial inferior aspect of the great toe which may represent an ulcer.? Extensive atherosclerosis is present.? There is diffuse soft tissue swelling of the foot. IMPRESSION: 1. No radiographic evidence of osteomyelitis of the great toe. 2. Soft tissue defect along the inferomedial aspect of the great toe suspicious for an ulcer. 3. Prior 5th toe amputation. 4. Diffuse soft tissue swelling of the foot.
[2023-05-07] MEDS: Rosuvastatin 20 MG TAB 40 MG PO (19:30)
[2023-05-07] MEDS: hydrOXYzine HCL 25 MG TAB PO (22:36)
[2023-05-08] VITALS (24 sets, daily range): BP systolic 92–148; BP diastolic 44–106; PULSE 53–80; RESP 15–24; TEMP 36.5–36.9; O2SAT 90–99
[2023-05-08] MEDS: LINEZOLID 600 MG/300 ML BAG 300 MG IVPB ×2 (02:45→14:05)
[2023-05-08 06:25] LABS: Abs Immature Grans 0.02 10^3/uL (0.0-0.06); Absolute Basophil Count 0.02 10^3/uL (0.0-0.2); Absolute Lymphocyte Count 0.49 10^3/uL (1.2-3.4); Absolute Monocyte Count 0.73 10^3/uL (0.1-0.8); Absolute Neutrophil Count 3.25 10^3/uL (1.2-6.7); Basophils % 0.4; Eosinophils % 2.2; HCT 30.6 % (40.0-50.0); HGB 10.3 g/dL (13.5-17.5); Immature Grans % 0.4; Lymphocytes % 10.6; MCH 29.3 pg (27.0-33.0); MCHC 33.7 % (32.0-36.0); MCV 87 fL (80-95); Monocytes % 15.8; Neutrophils % 70.6; RBC 3.51 10^6/uL (4.36-5.78); RDW 14.2 % (11.8-14.1); RDW-SD 45.1 fL; WBC 4.61 10^3/uL (4.4-10.8)
[2023-05-08 06:39] LABS: Anion Gap 10.3 mmol/L (3-11); CO2 24.7 mmol/L (21.0-32.0); CREATININE 3.3 mg/dL (0.70-1.30); Calcium 8.7 mg/dL (8.5-10.1); Chloride 93 mmol/L (98-107); Estimated GFR 19.69 (mL/min/1.73m2); Glucose 203 mg/dL (74-106); Potassium 3.5 mmol/L (3.5-5.1); Sodium 128 mmol/L (136-145)
[2023-05-08 06:41] LABS: BUN 85 mg/dL (7-18)
[2023-05-08 07:21] LABS: Platelet Count 85 10^3/uL (130-400)
[2023-05-08 07:22] LABS: Diff Comment Diff Reviewed; RBC Morphology Normal
[2023-05-08] MEDS: Insulin Glargine 300 UNITS/3 ML PEN 30 UNITS SC ×2 (08:00→19:14)
[2023-05-08] MEDS: Insulin Aspart 300 UNITS/3 ML PEN SC ×3 (08:01→17:18)
--- NOTE | 2023-05-08 08:45 | PDOC.CMPRO ---
Date of service: 05/08/23 Time of Service: 08:45 Care Management Progress Note Progress Note Text Progress Note Text: S/O:Bereket was sitting up in a chair when CM met with him. He reported that he was feeling well and was hopeful that he would be discharged. Unfortunately, Bereket's sodium dropped from 136 to 128 and his creatinine went from 2.9 to 3.3. He will remain in the hospital at least one more night to correct the sodium and repeat bloodwork in the morning. Bereket denied the need for any additional services. A:Bereket is a 68 year old man admitted on 05/07/23 with sepsis P:Anticipate Bereket will discharge home with no new services. He will follow up with his community providers and plan of care and transport with family. CM will continue to support Bereket and assess for discharge needs.
[2023-05-08] MEDS: Normal Saline 500 ML IV (09:24)
[2023-05-08] MEDS: Pregabalin 150 MG CAP PO ×3 (09:24→19:14)
[2023-05-08] MEDS: Aspirin E.C. 81 MG TABEC PO (09:24)
[2023-05-08] MEDS: Enoxaparin 40 MG/0.4 ML SYR SC (09:24)
[2023-05-08] MEDS: Clopidogrel 75 MG TAB PO (09:25)
[2023-05-08] MEDS: Allopurinol 100 MG TAB 50 MG PO (09:25)
[2023-05-08] MEDS: Docusate Sodium 100 MG CAP PO ×2 (09:25→19:14)
[2023-05-08] MEDS: Carvedilol 12.5 MG TAB PO ×2 (09:25→19:13)
[2023-05-08 11:12] LABS: Lyme Ab w Rflx to Lyme Confirm Negative (Negative)
--- NOTE | 2023-05-08 13:43 | IN_ITS ---
PT Notes Visit Reasons: Sepsis Physical Therapy Inpatient Initial Evaluation Date: 05/08/2023 Referring Doctor:? Yoly Victor MD PT Orders: PT CONSULT: Limited ability Precautions: Fall.? Standard.? Activity as tolerated. Patient Profile/Admitting Diagnosis:? Patient is an 68-year-old patient who required admission for the management of sepsis, chronic diabetic ulcer, elevated troponin, CHF, DM type II, gout, and acute urinary retention. PMHX: All Active Problems?(Updated 05/07/23 @ 03:29 by Bereket Artis) Acute urinary retention (Acute) Fever of unknown origin (Acute) Weakness (Acute) Acute renal injury (Acute) Lightheadedness (Acute) Obesity, morbid, BMI 40.0-49.9 (Acute) Chronic diabetic ulcer of right foot determined by examination (Acute) Diabetic ulcer of right foot associated with diabetes mellitus due to underlying condition (Acute) Diabetic ulcer of toe of left foot (Acute) Chronic venous insufficiency of lower extremity (Acute) Bilateral lower extremities Chronic venous stasis dermatitis (Acute) Bilateral lower extremitiesChronic acquired lymphedema (Acute) Bilateral lower extremitiesGouty arthritis of hand (Acute) Staphylococcus aureus bacteremia (Acute) Acute kidney injury superimposed on chronic kidney disease (Acute) Gram-positive cocci bacteremia (Acute) Sepsis (Acute) Elevated troponin (Acute) SIRS (systemic inflammatory response syndrome) (Acute) Erythema migrans (Lyme disease) (Acute) Discharge planning issues (Acute) Elevated troponin (Acute) Acute Lyme disease (Acute) Peripheral arterial disease (Acute) Nail dystrophy (Acute) Chronic foot ulcer (Acute) Hyperkalemia (Acute 07/26/14) Cellulitis (Acute) Diabetic foot infection (Acute) Leg wound, left (Acute) Diabetic retinopathy (Acute ~12/2021) B/L MODERATE-01/17 Edema (Acute) Gout (Chronic) 08/2021-diagnosed by rheumatology at [facility]-probable? gout tophi of hands Obesity (Chronic) Diabetes mellitus type 2, insulin dependent (Acute) with nephropathy Chronic kidney disease (CKD) (Chronic) 08/2021- Cr 1.7Hand arthritis (Acute) Amputation of toe (Acute) Cellulitis of foot, right (Acute) Diabetes mellitus type 2, insulin dependent (Acute) Right heart failure (Acute) Diabetic peripheral neuropathy (Chronic) Diabetic peripheral angiopathy (Chronic) Hypertension (Chronic) Chronic pain syndrome (Chronic) low back pain, drug contract at [facility]-V PMS and drug screen on 08/1221-patient on chronic hydrocodone Coronary artery disease involving [place] coronary artery of [place] heart with unstable angina pectoris (Chronic 08/30/17) [place] [facility] [place]: 3 vessel disease (LAD,LCx and RCA): coronary bypass sx pending Dyspnea on exertion (Chronic 12/16/13) negative nuclear stress test echocardiogram: normal/ EF 65%/no valvulopathy Cardiol.eval. :? not ischemia related ([facility]) Peripheral autonomic neuropathy in disorders classified elsewhere (Chronic 09/15/14) Hyperlipidemia (Chronic) Medical History? Congestive heart failure Diabetic foot ulcer DM (diabetes mellitus) 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 secondary to diabetic ulcer, angiopathyLaceration of lower leg with foreign body Lymphedema Obesity Proliferative diabetic retinopathy of both eyes without macular edema associated with diabetes mellitus due to underlying condition (01/18/18) [place] [place] [place]rotal hematoma (07/26/14) A.? S/p hydrocelectomy 07/24/14 Stroke (~2008) TIA (transient ischemic attack) Toe osteomyelitis, right s/p amputation. Pseudomonas osteomyelitis? 6wk IV Ceftazidime per [facility] Surgical History? H/O surgical procedure A.? Hydrocelectomy 07/24/2014 History of cataract removal with insertion of prosthetic lens History of hydrocelectomy (07/24/14) right S/P CABG x 3 [place]08/30/17[place] [facility] [place] : no fup needed S/P femoral-popliteal bypass surgery right. 03/2020 Social History/Home Situation: Lives with in a private home.? Independent with all aspects of ADLs prior to admission.? Occasionally uses [facility] outdoors.? works 3 hours a day. No falls since last seen back in January 2023. Equipment Owned/DME: [facility] Subjective: Persisten, chorninc back pain limiting mobility performance. States that he has only been getting tylenol while on admission, at home he has been taking hydrocodone. Nurse Bereket kelly. Objective: General Observation: Seated on wheelchair beside bed.? Telemetry monitoring in place. White catheter in place. Left foot covered with dressing. Mental Status: Alert and oriented as to person, place, time, and purpose. Able to pay attention, focus, and respond appropriately. Pain: Mild pain in low back area (chronic) Vital Signs: Closely monitored via tele ROM: Right Upper Extremity: ? Shoulder Flexion WFL. Shoulder abduction WFL. Elbow flexion WFL. Wrist flexion WFL. Functional opening and closing of hand WFL. Left Upper Extremity:? Shoulder Flexion WFL. Shoulder abduction WFL. Elbow flexion WFL. Wrist flexion WFL. Functional opening and closing of hand WFL. Right Lower Extremity: Hip flexion WFL. Hip abduction WFL. Knee flexion WFL. Ankle dorsiflexion WFL. Ankle plantarflexion WFL. Left Lower Extremity: Hip flexion WFL.? Hip abduction WFL. Knee flexion WFL.? Ankle dorsiflexion WFL.? Ankle plantarflexion WFL. Strength: Right Upper Extremity: Shoulder flexors 4/5. Shoulder abductors 4/5. Elbow flexors 5/5. Elbow extensors 5/5. Diversity Manager strong. Left Upper Extremity: Shoulder flexors 4/5. Shoulder abductors 4/5. Elbow flexors 5/5. Elbow extensors 5/5. Diversity Manager strong. Right Lower Extremity: Hip flexors 4/5. Hip abductors 4/5. Knee flexors 5/5. Knee extensors 4/5. Ankle dorsiflexors 4/5. Ankle plantarflexors 5/5. Left Lower Extremity: Hip flexors 4/5. Hip abductors 4/5. Knee flexors 5/5. Knee extensors 4/5. Ankle dorsiflexors 4/5. Ankle plantarflexors 5/5. Bed Mobility/Transfers: Sit to stand stand by assist Stand to sit stand by assist Bed to bedside commode stand by assist Bedside commode to bed stand by assist Bed to reclining chair stand by assist Reclining chair to bed stand by assist Gait: Instructed patient with level surface ambulation of 100? feet + 100 feet feet requiring FWW with stand by assist. Ensured protection of feet with decreased sensation and stabilization of B ankles using post-op shoes provided for patient today. Lizett decreased. Step height decreased. Step length decreased.? Mild shortness of breath and fatigue observed,? both subsided with rest. Complained low back pain of 4-5/10 that somewhat decreased with rest. Balance: Static Sitting: Normal Dynamic Sitting: Normal Static Standing: Fair Dynamic Standing: Fair Special Tests: Mobility Limitations Standardized Measure [facility] AM-PAC 6 clicks Basic Mobility Inpatient Short Form: Raw Score: 23? CMS Score: 11% deficit? ? ? Informed Consent/Education:? Patient was instructed in purpose of PT consult and plan of care.? Agreeable to proceed with established PT POC to achieve personal goals. THERA EX: AKTC x 10 Ankle pumps x 10 seated hip abduction x 10 Assessment: B legs and feet with decreased sensation and so emphasized use o of proper and protective footwear to maximize wound healing. Also stressed the improtance of doing B LE seated exercises to maiatin jont flexibility and increase circulation to distal lower extremities to promote healing chroninc wound. Patient presents with clinical signs and symptoms consistent with current/admitting diagnoses that have resulted to mobility limitations, gait instability, generalized weakness, and overall ADL decline as demonstrated by the following impairment level findings: 1.? Decreased strength to B LE major muscle groups 2.? Impaired sitting/standing balance 3.? Impaired activity tolerance 4.? Shortness of breath 5.? Fatigue Impairments are contributing to the following functional limitations: 1.? Decline in bed mobility skills 2.? Decline in transfer skills 3.? Difficulty with ambulation without assistive device and physical assistance 4.? Increased completion time for mobility ADL performance 5.? Increased risk for falls 6.? Difficulty with managing steps alone safely Patient is assessed as a 52063 moderate complexity based on the following: History: 68-year-old female with past medical history as indicated above Examination: Demonstrable impairment in strength, balance, and mobility level with underlying impairments and functional limitations as exhibited above as well as deficit score of 11% utilizing the [facility] Mobility Inpatient Short Form Presentation: Evolving Decision Makin moderate complexity Goals: Goals X1 week 1. Supine-Sit independent 2. Sit-Supine independent 3. Sit-Stand independent 4. Stand-Sit independent with FWW 5. Bed-Chair independent with FWW 6. Chair-Bed independent with FWW 7. Independent gait on level surface with use of FWW for at least 300 feet without report of pain nor dyspnea 8. Independent stair negotiation while holding onto B rails for at least 3 steps without report of pain nor dyspnea 9. Independent with home exercise program 10. Good static and dynamic standing balance/tolerance Plan of Care/Treatment Plan: 1-2x/day, 7 days/week x 1 week. Plan of care has been reviewed with the CRAFT COORDINATOR providing the service under Physical Therapy direction. Initiate Physical Therapy intervention for pain management as needed, strengthening, bed mobility, transfers, gait, stairs, balance training, and use of assistive device. DISCHARGE RECOMMENDATIONS: [] ? Home with no services [] [X] ? Home with services.? Patient will benefit from home health PT services in order to progress mobility level using least restrictive assistive ambulatory device, assess home safety, identify additional equipment needs, and establish a functional maintenance program that will increase ability of patient to remain at home. [] ? Home with outpatient PT [] [] ? SNF for continued rehabilitation [] [] ? [facility] [] [] ? SNF versus LTC based on ability to participate and progress [] TREATMENT CODE/TIME: 26312 x 20 minutes (1 unit), 65241 x 25 minutes (2 units) beginning at 12:56 PM. Thank you for the opportunity to participate in the care of this patient. Kimberly Enciso PT, DPT, CLT [facility] [place], [place]
--- NOTE | 2023-05-08 14:49 | W.PM.PROGNOT ---
Date of Service Date of service: 05/08/23 Time of Service: 14:50 Assessment and Plan Assessment and plan (1) Sepsis: Status: Acute Assessment and plan: I am concerned his shaking chills and fever represence sepsis with bacteremia. His lactate was only mildly elevated at 1.5. WBC count elevated. BP intermittently low but not requiring pressor agent; responded to fluids. All 4 blood culture bottles growing Group G strep. Now on linezolid with plans of a 4 week course. (2) Chronic diabetic ulcer of right foot determined by examination: Status: Acute Assessment and plan: This open wound may be the source. He did have a negative MRI last admission Xray and MRI of toe negative for osteomyelitis. Podiatry consult appreciated. Dr Jean will follow as outpt. Culture of the toe growing mixed laura. No acute cellulitis. (3) Elevated troponin: Status: Acute Assessment and plan: This is not consistent with acute coronary syndrome. Troponin was higher at last visit, EKG reassuring, and he is not having chest pain. He may not be renally clearling troponin as well. Troponin this hospitalization inititially 77. It increased to 454 then decreased to 443. Echocardiogram pending. (4) Congestive heart failure: Assessment and plan: Recent echo showed LVEF 55% with mild concentric LVH, no focal defects in ventricle. Monitor for signs of CHF while holding diuresis. (5) Diabetes mellitus type 2, insulin dependent: Status: Acute Assessment and plan: A1c reasonable at 7.6 in January, continue basal/bolus insulin but lower dose as he isn't eating now (6) Acute renal injury: Status: Acute Assessment and plan: Initially placed on lasix drip Creatinine has increased to 3.3. Baseline appears to be in the mid 2's. Holding diuretic. Monitoring Received 500ml NS bolus today. (7) Gout: Status: Chronic Assessment and plan: Has been improved on low dose allopurinol and colchicine, the latter dosed low due to carvedilol interaction (8) Acute urinary retention: Status: Acute Assessment and plan: bladder scan done due to CT findings, >500, khanna placed and patient has put out close to 2000ml urine. Khanna now discontinued and he is urinating on his own volition. (9) Discharge planning issues: Status: Acute Assessment and plan: He will be transferred to the medical floor. He may need prolonged antibiotics again. Full Code. (10) Hyponatremia: Status: Acute Assessment and plan: Na was initially 140. Now decreased to 128. Monitoring. Not symptomatic. Subjective Subjective Patient reports: no new complaints, feels better, tolerating a regular diet and afebrile; denies diarrhea, nausea, vomiting or shortness of breath Exam Narrative Exam Narrative: GEN: Sitting in recliner. Pleasant, cooperative. HEENT: Conjunctiva clear, no icterus. MMM CV: RRR with no murmurs. LUNGS: CTAB, nonlabored breathing. ABD: +BS, soft, NT/ND EXT: No pitting edema or calf tenderness. MSK: firm tophi noted on hands. No major joint redness/swelling NEURO: Normal movement of 4 extremities. Normal speech and coordination SKIN: No rashes. 4mm deep ulceration in middle of callus left 1st distal toe. PSYCH: normal mood and affect Objective Last Vital Signs Temp 36.6 C 05/08/23 08:26 Pulse 63 05/08/23 07:46 Resp 15 05/08/23 07:46 BP 103/61 05/08/23 07:46 Pulse Ox 98 05/08/23 07:46 Laboratory Results - last 24 hr 05/06/23 05/08/23 05/08/23 21:00 05:52 05:52 WBC 4.61 RBC 3.51 L Hgb 10.3 L Hct 30.6 L MCV 87 MCH 29.3 MCHC 33.7 RDW 14.2 H Plt Count 85 L MPV 12.0 H Immature Gran % 0.4 Neutrophils % 70.6 Lymphocytes % 10.6 Monocytes % 15.8 Eosinophils % 2.2 Basophils % 0.4 Nucleated RBC % 0.0 Absolute Neutrophils 3.25 Absolute Lymphocytes 0.49 L Absolute Monocytes 0.73 Absolute Eosinophils 0.10 Absolute Basophils 0.02 RBC Morphology Normal Sodium 128 L Potassium 3.5 Chloride 93 L Carbon Dioxide 24.7 Anion Gap 10.3 BUN 85 H* Creatinine 3.3 H Est GFR (CKD-EPI 2020) 19.69 Glucose 203 H Calcium 8.7 Lyme Disease Antibody Negative Time Spent with Patient Time Spent with Patient: 35-49 minutes Time was spent: preparing to see the patient(eg.review tests), obtaining and/or reviewing separately otained hiistory, ordering medications,tests, procedures, referring, communicating with other health workforce investment act career manager, indepentently interpreting results, counseling the patient and care coordination
--- NOTE | 2023-05-08 15:00 | RT.EKG_ITS ---
APPROVED REPORT Exam: Resting ECG Reason for Exam: paroxysmal atrial arrhythmia Patient Location: I HR:62 bpm ECG Measurements Heart Rate 62 AXIS WA [id number] P [id number] QRSd 183 QRS 86 QT 526 T 26 QTc 535 Conclusion Atrial flutter with varied AV block,...A-rate 245, varied AV conduction Right bundle branch block...QRSd>120, terminal axis(90,270)
[2023-05-08] MEDS: Rosuvastatin 20 MG TAB 40 MG PO (19:14)
[2023-05-08] MEDS: Acetaminophen 500 MG TAB 1000 MG PO (19:14)
[2023-05-08] MEDS: Cyclobenzaprine 10 MG TAB PO (20:51)
[2023-05-08] MEDS: hydrOXYzine HCL 25 MG TAB PO (20:51)
[2023-05-09] VITALS: PULSE 62
[2023-05-09] MEDS: LINEZOLID 600 MG/300 ML BAG 300 MG IVPB (02:05)
[2023-05-09 02:12] VITALS: BP 122/61; PULSE 61; PULSE 64; RESP 15; O2SAT 97
[2023-05-09 02:13] VITALS: PULSE 60; RESP 13; O2SAT 96
[2023-05-09 04:00] VITALS: PULSE 61; RESP 17; O2SAT 97
[2023-05-09 06:00] VITALS: PULSE 62; RESP 13; O2SAT 98
[2023-05-09 06:41] LABS: HCT 30.4 % (40.0-50.0); HGB 10.4 g/dL (13.5-17.5); MCH 29.8 pg (27.0-33.0); MCHC 34.2 % (32.0-36.0); MCV 87 fL (80-95); MPV 12.4 fL (8.0-11.0); RBC 3.49 10^6/uL (4.36-5.78); RDW 14.2 % (11.8-14.1); RDW-SD 45.1 fL; WBC 4.15 10^3/uL (4.4-10.8)
[2023-05-09 07:11] LABS: Anion Gap 11.3 mmol/L (3-11); CO2 23.7 mmol/L (21.0-32.0); CREATININE 3.2 mg/dL (0.70-1.30); Calcium 8.6 mg/dL (8.5-10.1); Chloride 96 mmol/L (98-107); Estimated GFR 20.43 (mL/min/1.73m2); Glucose 253 mg/dL (74-106); Potassium 3.9 mmol/L (3.5-5.1); Sodium 131 mmol/L (136-145)
[2023-05-09 07:29] LABS: BUN 92 mg/dL (7-18)
[2023-05-09 07:38] LABS: Platelet Count 88 10^3/uL (130-400)
[2023-05-09 08:00] VITALS: PULSE 64; RESP 11; O2SAT 98
--- NOTE | 2023-05-09 08:42 | W.PM.DS.N ---
Date of service: 05/09/23 Time of Service: 08:42 DS: Diagnosis Discharge Diagnosis (1) Ulcer of left foot with bone involvement without evidence of necrosis: Status: Acute Asessment and Plan: Podiatry consulted. The toe ulcer was tunnelled. Dr Jean evaluated and the toe wound was cultured; this grew mixed laura. Xray of the toe and MRI showed no osteomyelitis. He will f/u with Dr Jean as outpt. (2) Gram-positive cocci bacteremia: Status: Acute Asessment and Plan: Group G strep grew in all 4 blood culture bottles. A 4 week course of linezolid prescribed. He [place] app[place] [facility] [place] and a GM will be discussed then. (3) Diabetes mellitus type 2, insulin dependent: Status: Acute Asessment and Plan: Cont home regimen. (4) Chronic kidney disease (CKD): Status: Chronic Asessment and Plan: Creatinine now 3.2. Above baseline. He is s/p diureses with a lasix drip which could have caused his CARYL. Monitor as outpt. (5) Diabetic peripheral neuropathy: Status: Chronic Asessment and Plan: Cont pregabalin (6) Diabetic peripheral angiopathy: Status: Chronic Asessment and Plan: His previous right foot amputation has healed in the background of this angiopathy. (7) Palliative care encounter: Status: Acute Asessment and Plan: Pt not interested in ongoing palliative connections. Discharge Plan Disposition Patient Disposition: Home W/Home Health Services Condition: Improving Discharge Details Reason For Visit: Sepsis, streptococcal bacteremia Admit Date/Time: 05/07/23 01:19 Admit Provider: Bereket Artis Attending Provider: Bereket Artis Primary Care Provider: Jarrod Schultz Hospital Course Hospital Course: 68 yo M with CKD4, DM, CAD, PAD, and recent admission 02/18/23 when he was initially treated for Lyme Disease, then grew MSSA in his blood and required prolonged course of cefazolin who is presenting with fever since the evening of 05/05 and shaking chills.? He reports he was feeling better prior to the evening of 05/05.? He states he only finished his cefazolin a couple weeks ago.? He was told by his vascular surgeon that his right toe ulceration was healing well.? On the evening of 05/05, a day and a half prior to admission, he started feeling feverish.? He hasn't wanted to eat and feeling nauseous, had vomited food.? He started getting shaking of his whole body, which he had with previous infections. Of note, during last hospitalization Entresto was added to his regimen for CHF.? Chlorthalidone was stopped.? He was also since started on dapaglaflozin.? He states he blood pressure has been low at home since then with systolics in the 80s and 90s, causing lightheadedness that is constant.? He has cut the carvedilol to 12.5mg BID from 25mg.? Of note he has also previously had diabetic foot ulcers with osteomyelitis that grew psuedomonas.? Initially vancomycin and aztreonam were initiated. See Diagnosis DC with home health referral for nursing. PCP f/u in 1-2 weeks. Scheduling podiatry f/u. Home Meds and New Rx's Prescriptions: New linezolid 600 mg tablet 600 mg PO BID Qty: 56 0RF Continued rosuvastatin 40 mg tablet See Rx Instructions .ROUTE .COMPLEX Qty: 90 3RF Dose Instruction: TAKE ONE TABLET BY MOUTH EVERY DAY AT BEDTIME Rx Instructions: TAKE ONE TABLET BY MOUTH EVERY DAY AT BEDTIME nitroglycerin 0.4 mg tablet, sublingual 0.4 mg SL Q5-15M PRN (Reason: chest pain) Qty: 25 0RF aspirin [Adult Aspirin Regimen] 81 mg tablet,delayed release (DR/EC) 81 mg PO DAILY colchicine (gout) 0.6 mg tablet 0.6 mg PO .TWICE A WEEK allopurinol 100 mg tablet 50 mg PO DAILY triamcinolone acetonide 0.5 % ointment 1 applic Topical BID PRN (Reason: dermatitis) carvedilol 12.5 mg tablet 12.5 mg PO BID Qty: 180 3RF Rx Instructions: must administer with a meal/food Farxiga 5 mg tablet 5 mg PO DAILY (DME) BD Insulin Syringe 1 EACH syringe 1 ea Sub-Q QID Qty: 3 Rx Instructions: B/D INSULIN ULTRA-FINE 30GX0.3/ (DME) Aerochamber Plus Flow-Vu 1 EACH spacer 1 ea Miscellaneous PRN Qty: 1 0RF (DME) blood-glucose meter [FreeStyle Lite Meter] 1 EACH kit 1 ea Miscellaneous TID Qty: 1 0RF (DME) FreeStyle Lite Strips Strip 1 ea Miscellaneous QID Qty: 400 6RF Rx Instructions: 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 E11.42 (DME) FreeStyle Alfredo 2 [place] Misc See Rx Instructions .ROUTE .MEDSUPPLY Qty: 1 0RF Rx Instructions: As directed (DME) FreeStyle Alfredo 2 Sensor Kit See Rx Instructions .ROUTE .MEDSUPPLY Qty: 2 6RF Rx Instructions: As directed (DME) BD Regular Bevel [place] 21 gauge x 1 1/2 needle 1 ea Miscellaneous QID Qty: 100 6RF Rx Instructions: BD U100 29g 1/2 with safety lock insulin syringes Dx E11.49 (DME) pen needle, diabetic [BD Ultra-Fine Short Pen Needle] 31 gauge x 5/16 needle See Rx Instructions .ROUTE .MEDSUPPLY Qty: 100 4RF Rx Instructions: check blood sugar qid clopidogrel 75 mg tablet 75 mg PO DAILY Qty: 90 3RF pregabalin 150 mg capsule 150 mg PO TID Qty: 90 5RF hydrocodone-acetaminophen 7.5-325 mg tablet 1 tab PO BID MDD 2 tabs PRN (Reason: back pain) Qty: 56 0RF multivitamin Tablet 1 tab PO DAILY acetaminophen 500 mg Tablet 1,000 mg PO Q6H PRN docusate sodium 100 mg Capsule 100 mg PO BID Qty: 60 0RF hydroxyzine HCl 25 mg Tablet 25 mg PO HS Qty: 30 0RF Entresto 24-26 mg Tablet 1 tab PO BID Qty: 60 0RF insulin aspart U-100 [Novolog FlexPen U-100 Insulin] 100 unit/mL (3 mL) insulin pen 1 - 50 unit Sub-Q AC Qty: 70 4RF insulin glargine [Basaglar KwikPen U-100 Insulin] 100 unit/mL (3 mL) insulin pen 40 unit subcut BID Qty: 90 3RF fluticasone propionate [Flonase Allergy Relief] 50 mcg/actuation spray,suspension 1 spray intranasal DAILY PRN (Reason: nasal congestion) Qty: 16 0RF Rx Instructions: administer into each nostril Held cyclobenzaprine 10 mg tablet 10 mg PO TID PRN (Reason: muscle spasm) Qty: 60 0RF Hold Instructions: hold while taking linezolid furosemide 80 mg tablet See Rx Instructions .ROUTE .COMPLEX Qty: 60 0RF Hold Instructions: hold today, 05/09 and Thursday 05/10. Resume on Friday 05/11. Rx Instructions: takes 80 mg in the morning + 80 mg in the afternoon PRN SOB Discharge Instructions Referrals: Julia Jean DPM [[facility] STAFF PHYSICIAN] - (Toe ulceration. ) Activity:: Activity as Tolerated Equipment/Supplies:: No Equipment Needed Diet:: Resume home diet Discharge Orders Discharge Orders: Discharge Order (Routine); Ordered 05/09/23 Ordered By: Jamie Corona Other Ambulatory Orders: Basic Metabolic Panel (Routine) Location: None Selected Ordered By: Jamie Corona Discharge Data Discharge Date/Time-TO BE ENTERED AT DEPARTURE: 05/09/23 11:42 Discharge Comment: ambulatory no c/o DS: Summary Time Spent with Patient providing and/or coordinating discharge services: Greater than 30 minutes Status at Discharge Functional status at discharge: independent ambulation (Occasional use of SPC when outdoors) Overall status at discharge: patient is progressing back to baseline Mental Status: mental status grossly normal Speech and Movement: speech and movement normal Mood: congruent mood Affect: normal affect Exam Psych Mental Status: mental status grossly normal Speech and Movement: speech and movement normal Mood: congruent mood Affect: normal affect DS: Data Vitals/I&O Vitals and I&O: Vital Signs Temperature 36.5 C 05/08/23 16:45 Temperature Source Temporal Artery Scan 05/08/23 16:45 Pulse 61 05/09/23 02:12 Pulse Rhythm Irregular 05/09/23 07:29 Pulse 64 05/09/23 02:12 Respiratory Rate 15 05/09/23 02:12 Respiratory Effort Normal, Non-Labored 05/09/23 07:29 Respiratory Depth Normal 05/09/23 07:29 Respiratory Pattern Normal 05/09/23 07:29 Blood Pressure 122/61 05/09/23 02:12 Blood Pressure Mean 74 05/09/23 02:12 Blood Pressure Position Sitting 05/07/23 20:02 Pulse Oximetry 97 05/09/23 02:12 Oxygen Delivery Method Room Air 05/08/23 16:45 Oxygen Flow Rate 0 05/08/23 16:45 Pain Level 8 05/08/23 21:59 Intake & Output 05/08/23 05/08/23 05/09/23 11:59 23:59 11:59 Intake Total 830 / 2390 1260 / 2390 300 / 300 Output Total 1175 / 3075 1900 / 3075 Balance -345 / -685 -640 / -685 300 / 300 Weight 133.2 kg Intake: IV 300 / 1400 800 / 1400 300 / 300 Oral 530 / 990 460 / 990 Output: Urine 1175 / 3075 1900 / 3075 Other: Urine Color Light Abigail Light Abigail Urine Appearance Clear Clear Clear Urine Odor Strong Comment clear yellow urine in White bag. Voiding Methods Bedside Commode Data Completed and Pending Labs on day of discharge: Labs from last 24 hours 05/09/23 05/09/23 05/06/23 06:05 06:05 21:00 WBC 4.15 L RBC 3.49 L Hgb 10.4 L Hct 30.4 L MCV 87 MCH 29.8 MCHC 34.2 RDW 14.2 H Plt Count 88 L MPV 12.4 H Sodium 131 L Potassium 3.9 Chloride 96 L Carbon Dioxide 23.7 Anion Gap 11.3 H BUN 92 H* Creatinine 3.2 H Est GFR (CKD-EPI 2020) 20.43 Glucose 253 H Calcium 8.6 Lyme Disease Antibody Negative 05/07/23 10:13 Toe - Left Big Toe Anaerobic Culture - Pending Preliminary micro results at discharge 05/07/23 10:13 Wound Culture - Preliminary Toe - Left Big Toe Gram Positive Laura,Mixed Gram Negative Laura,Mixed 05/06/23 21:14 Blood Culture - Preliminary Blood Group G Streptococcus 05/06/23 21:10 Blood Culture - Preliminary Blood Group G Streptococcus 05/06/23 22:23 Urine Culture - Preliminary Urine - Clean Catch Gram Positive Laura,Mixed Gram Negative Santo 05/07/23 10:13 Anaerobic Culture - Pending Toe - Left Big Toe PFSH All Active Problems Hyponatremia (Acute) Palliative care encounter (Acute) Osteomyelitis (Acute) Ulcer of left foot with bone involvement without evidence of necrosis (Acute) Acute urinary retention (Acute) Fever of unknown origin (Acute) Weakness (Acute) Acute renal injury (Acute) Lightheadedness (Acute) Obesity, morbid, BMI 40.0-49.9 (Acute) Chronic diabetic ulcer of right foot determined by examination (Acute) Diabetic ulcer of right foot associated with diabetes mellitus due to underlying condition (Acute) Diabetic ulcer of toe of left foot (Acute) Chronic venous insufficiency of lower extremity (Acute) Bilateral lower extremities Chronic venous stasis dermatitis (Acute) Bilateral lower extremities Chronic acquired lymphedema (Acute) Bilateral lower extremities Gouty arthritis of hand (Acute) Staphylococcus aureus bacteremia (Acute) Acute kidney injury superimposed on chronic kidney disease (Acute) Gram-positive cocci bacteremia (Acute) Sepsis (Acute) Elevated troponin (Acute) SIRS (systemic inflammatory response syndrome) (Acute) Erythema migrans (Lyme disease) (Acute) Discharge planning issues (Acute) Elevated troponin (Acute) Acute Lyme disease (Acute) Peripheral arterial disease (Acute) Nail dystrophy (Acute) Chronic foot ulcer (Acute) Hyperkalemia (Acute 07/26/14) Cellulitis (Acute) Diabetic foot infection (Acute) Leg wound, left (Acute) Diabetic retinopathy (Acute ~12/2021) B/L MODERATE-01/17 Edema (Acute) Gout (Chronic) 08/2021-diagnosed by rheumatology at [facility]-probable gout tophi of hands Obesity (Chronic) Diabetes mellitus type 2, insulin dependent (Acute) with nephropathy Chronic kidney disease (CKD) (Chronic) 08/2021- Cr 1.7 Hand arthritis (Acute) Amputation of toe (Acute) Cellulitis of foot, right (Acute) Diabetes mellitus type 2, insulin dependent (Acute) Right heart failure (Acute) Diabetic peripheral neuropathy (Chronic) Diabetic peripheral angiopathy (Chronic) Hypertension (Chronic) Chronic pain syndrome (Chronic) low back pain, drug contract at [facility] PMS and drug screen on 08/1221-patient on chronic hydrocodone Coronary artery disease involving [place] coronary artery of [place] heart with unstable angina pectoris (Chronic 08/30/17) 08-24-[place] [facility] [place]: 3 vessel disease (LAD,LCx and RCA): coronary bypass sx pending Dyspnea on exertion (Chronic 12/16/13) negative nuclear stress test echocardiogram: normal/ EF 65%/no valvulopathy Cardiol.eval. : not ischemia related ([facility]) Peripheral autonomic neuropathy in disorders classified elsewhere (Chronic 09/15/14) Hyperlipidemia (Chronic) Medical History Congestive heart failure Diabetic foot ulcer DM (diabetes mellitus) 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 secondary to diabetic ulcer, angiopathy Laceration of lower leg with foreign body Lymphedema Obesity Proliferative diabetic retinopathy of both eyes without macular edema associated with diabetes mellitus due to underlying condition (01/18/18) [place] [place] Scrotal hematoma (07/26/14) A. S/p hydrocelectomy 07/24/14 Stroke (~2008) TIA (transient ischemic attack) Toe osteomyelitis, right s/p amputation. 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 Hydrocelectomy 07/24/2014 History of cataract removal with insertion of prosthetic lens History of hydrocelectomy (07/24/14) right S/P CABG x 3 (08/30/17) [facility] [place] 08-29-2017 : no fup needed S/P femoral-popliteal bypass surgery right. 03/2020 Family History Mother No problems noted. Father Diabetes Myocardial infarction Heart disease Sister Diabetes Social History Smoking/Tobacco Use Status: Former Tobacco Use Quit Date: 09/28/83 Tobacco: How many years used: 5 Smoking risk assessment performed?: Yes Alcohol Intake: current Alcohol Intake frequency: holidays/special occasions only Drug use: Occasionally Substance use type: marijuana Pets and animals: Yes Pets and animals: cat(s) and dog(s) What type of physical activity do you participate in: none Do you feel safe at home: Yes Do you feel safe in your relationship?: Yes Time Spent with Patient Time Spent with Patient: 45-69 minutes Time was spent: preparing to see the patient(eg.review tests), obtaining and/or reviewing separately otained hiistory, ordering medications,tests, procedures, referring, communicating with other health care rep, indepentently interpreting results, counseling the patient and care coordination
[2023-05-09] MEDS: Allopurinol 100 MG TAB 50 MG PO (08:50)
[2023-05-09] MEDS: Aspirin E.C. 81 MG TABEC PO (08:50)
[2023-05-09] MEDS: Insulin Aspart 300 UNITS/3 ML PEN SC (08:50)
[2023-05-09] MEDS: Pregabalin 150 MG CAP PO (08:51)
[2023-05-09] MEDS: Carvedilol 12.5 MG TAB PO (08:51)
[2023-05-09] MEDS: Clopidogrel 75 MG TAB PO (08:51)
[2023-05-09] MEDS: Insulin Glargine 300 UNITS/3 ML PEN 30 UNITS SC (08:51)
[2023-05-09] MEDS: Docusate Sodium 100 MG CAP PO (08:51)
[2023-05-09] MEDS: Enoxaparin 40 MG/0.4 ML SYR SC (08:51)
--- NOTE | 2023-05-09 09:13 | PDOC.HHF2F_ITS ---
Home Health Referral Home Health Orders Clinical synopsis of why skilled professionals are needed: Pt present with signs/symptoms of sepsis that responded to hydration and antibiotics. Blood cultures + fro group G strep. Now on 4 week course of linezolid. He also developed hyponatremia that is improving and acute on chronic renal insufficiency. Medical diagnosis necessitation home health referral: Bacteremia Acute on chronic CARYL Hyponatremia Registered Nurse: Check all that apply Instruct on new or changed medication(s)/assess compliance: Ordered Assess for exacerbation of medical condition, instruct patient/caregivers on signs and symptoms to report for early detection: Ordered Home Bound Status Requires the aid of supportive device (check all that apply): Cane (When on unfamiliar territory and [id number]) Assistance of another person (Describe assistance and medical necessity): Standb y to one person d/t gait instability; peripheral neuropathy and previous R foot toe amputations. Describe why leaving home would require a considerable and taxing effort: Safety Concerns: describe (Fall risk d/t gait instability) Encounter Date and Reason: I certify that a FTF encounter for this patient was performed on May 09, 2023 and that such encounter was related to the primary reason the patient requires home health services. The encounter was conducted in the following manner: * By me as the certifying physician, JEWEL CUPPING MACHINE OPERATOR, PA or * By an inpatient physician, JEWEL CUPPING MACHINE OPERATOR or PA during an inpatient stay who communicated findings to me, Certification And Authentication I certify that I composed the above information based on my clinical judgment relating to this patient's medical condition and, if applicable, clinical findings communicated to me by the NPP or inpatient physician who performed the FTF encounter. Name of Provider that will be monitoring home health services: Jamie Corona
[2023-05-09 13:27] LABS: Anaplasma phagocytophilum Negative (Negative); B. miyamotoi PCR Negative (Negative); Babesia divergens/MO-1 Negative (Negative); Babesia duncani Negative (Negative); Babesia microti Negative (Negative); Ehrlichia chaffeensis Negative (Negative); Ehrlichia ewingii/canis Negative (Negative); Ehrlichia muris eauclairensis Negative (Negative)
--- NOTE | 2023-05-09 15:03 | CMDISCH_ITS ---
Date of service: 05/09/23 Time of Service: 15:04 LACE Index Scoring Tool Questions: Length of Stay (in days): 2 Was the patient admitted via the E.D.?: Yes Comorbidities: Diabetes w/o Complication and Liver or Renal Disease E.D. Visits: 2 Answers: Total Score: 12 Risk of Readmission: High Risk Care Management Discharge Plan Reason for Hospitalization: Sepsis Discharge Plan: Bereket returned home today with new orders for HH RN. CM informed [facility] of his discharge today. His drove him home via private vehicle. He will follow up with his PCP and discharge plan of care. Patient/Family Education Needs: Review discharge instructions and limitations, discussion of self care needs including ask me three. Services Needed at Discharge: Home Health Care Services (new HH RN)
== END 2023-05-09 11:42 | disposition home health service (06) | DRG 854 ==
LOC: ER 05-07 02:20 → ICU 05-07 03:56
PROVIDERS: Family Medicine; Admitting Provider Family Medicine; Emergency Provider Student in an Organized Health Care Education/Training Program; PCP Nurse Practitioner Family; Visit Provider Family Medicine
DX: A40.8 Other streptococcal sepsis (principal); E87.1 Hypo-osmolality and hyponatremia; I13.0 Hypertensive heart and chronic kidney disease with heart failure and stage 1 through stage 4 chronic kidney disease, or unspecified chronic kidney disease; L97.419 Non-pressure chronic ulcer of right heel and midfoot with unspecified severity; N17.9 Acute kidney failure, unspecified; Z68.41 Body mass index [BMI] 40.0-44.9, adult; N18.4 Chronic kidney disease, stage 4 (severe); L97.526 Non-pressure chronic ulcer of other part of left foot with bone involvement without evidence of necrosis; R53.1 Weakness; Z79.4 Long term (current) use of insulin; E11.22 Type 2 diabetes mellitus with diabetic chronic kidney disease; I25.10 Atherosclerotic heart disease of native coronary artery without angina pectoris; E11.42 Type 2 diabetes mellitus with diabetic polyneuropathy; M10.9 Gout, unspecified; Z79.01 Long term (current) use of anticoagulants; E11.621 Type 2 diabetes mellitus with foot ulcer; R74.8 Abnormal levels of other serum enzymes; I50.9 Heart failure, unspecified; R33.9 Retention of urine, unspecified; E66.01 Morbid (severe) obesity due to excess calories; I87.2 Venous insufficiency (chronic) (peripheral); I73.9 Peripheral vascular disease, unspecified; I89.0 Lymphedema, not elsewhere classified; E11.51 Type 2 diabetes mellitus with diabetic peripheral angiopathy without gangrene; M54.50 Low back pain, unspecified; G89.4 Chronic pain syndrome; E11.3593 Type 2 diabetes mellitus with proliferative diabetic retinopathy without macular edema, bilateral; Z86.73 Personal history of transient ischemic attack (TIA), and cerebral infarction without residual deficits; Z89.421 Acquired absence of other right toe(s); Z89.422 Acquired absence of other left toe(s); Z95.1 Presence of aortocoronary bypass graft
CPT/HCPCS: 11042; 36415; 71250; 80048; 80053; 84145; 85027; 87040; 87077; 87637; 87798; 93005; 93308; 96361; 96365; 96368; 97162; 97530; 99285; J1650; J3490; 73630; 73718; 74176; 81003; 81015; 83605; 83735; 84484; 85025; 86618; 87070; 87075; 87086; 87186; 87205; 93010; 99232; 99239; J2020

== ENCOUNTER 2023-05-25 12:10 | Outpatient (CLI) | payer MEDICARE, SELFPAY ==
[2023-05-25 13:19] LABS: Abs Immature Grans 0.01 10^3/uL (0.0-0.06); Absolute Basophil Count 0.02 10^3/uL (0.0-0.2); Absolute Eosinophil Count 0.06 10^3/uL (0.0-0.7); Absolute Lymphocyte Count 0.63 10^3/uL (1.2-3.4); Absolute Monocyte Count 0.26 10^3/uL (0.1-0.8); Basophils % 0.6; Eosinophils % 1.8; HCT 25.9 % (40.0-50.0); HGB 8.8 g/dL (13.5-17.5); Immature Grans % 0.3; Lymphocytes % 19.2; MCH 29.4 pg (27.0-33.0); MCV 87 fL (80-95); Monocytes % 7.9; Neutrophils % 70.2; RBC 2.99 10^6/uL (4.36-5.78); RDW 12.9 % (11.8-14.1); RDW-SD 40.2 fL; WBC 3.28 10^3/uL (4.4-10.8)
[2023-05-25 13:30] LABS: Anion Gap 8.4 mmol/L (3-11); BUN 75 mg/dL (7-18); CO2 30.6 mmol/L (21.0-32.0); CREATININE 3.3 mg/dL (0.70-1.30); Calcium 8.8 mg/dL (8.5-10.1); Chloride 95 mmol/L (98-107); Estimated GFR 19.69 (mL/min/1.73m2); Glucose 185 mg/dL (74-106); Sodium 134 mmol/L (136-145)
[2023-05-25 13:31] LABS: Platelet Count 40 10^3/uL (130-400)
[2023-05-25 13:32] LABS: Diff Comment Diff Reviewed; Hypochromasia 2+
== END 2023-05-25 12:11 | disposition home or self-care (01) ==
LOC: LBO 12:11
PROVIDERS: PCP Nurse Practitioner Family; Visit Provider Nurse Practitioner Family
DX: L97.526 Non-pressure chronic ulcer of other part of left foot with bone involvement without evidence of necrosis (principal); E87.1 Hypo-osmolality and hyponatremia
CPT/HCPCS: 36415; 80048; 85025

== ENCOUNTER → 2023-05-29 09:48 | Outpatient (BNVA) | payer MEDICARE, SELFPAY | PROVIDERS: PCP Nurse Practitioner Family; Referring Provider Nurse Practitioner Family; Visit Provider Internal Medicine Cardiovascular Disease | DX: I73.9 Peripheral vascular disease, unspecified (principal); N18.9 Chronic kidney disease, unspecified; Z95.1 Presence of aortocoronary bypass graft; E11.42 Type 2 diabetes mellitus with diabetic polyneuropathy; E11.22 Type 2 diabetes mellitus with diabetic chronic kidney disease; I12.9 Hypertensive chronic kidney disease with stage 1 through stage 4 chronic kidney disease, or unspecified chronic kidney disease | CPT/HCPCS: 99214 ==

== ENCOUNTER 2023-06-04 12:19 | Outpatient (REF) | payer MEDICARE, SELFPAY ==
[2023-06-04 13:00] LABS: Abs Immature Grans 0.04 10^3/uL (0.0-0.06); Absolute Basophil Count 0.03 10^3/uL (0.0-0.2); Absolute Eosinophil Count 0.23 10^3/uL (0.0-0.7); Absolute Lymphocyte Count 0.92 10^3/uL (1.2-3.4); Absolute Monocyte Count 0.92 10^3/uL (0.1-0.8); Absolute Neutrophil Count 3.65 10^3/uL (1.2-6.7); Basophils % 0.5; HCT 22.3 % (40.0-50.0); HGB 7.5 g/dL (13.5-17.5); Immature Grans % 0.7; Lymphocytes % 15.9; MCHC 33.6 % (32.0-36.0); MCV 86 fL (80-95); MPV 10.9 fL (8.0-11.0); Monocytes % 15.9; RBC 2.59 10^6/uL (4.36-5.78); RDW 12.5 % (11.8-14.1); RDW-SD 39.2 fL; WBC 5.79 10^3/uL (4.4-10.8)
[2023-06-04 13:14] LABS: Platelet Count 64 10^3/uL (130-400)
[2023-06-04 13:16] LABS: Hypochromasia 1+
[2023-06-04 13:21] LABS: ALT 23 U/L (16-63); AST 17 U/L (15-37); Albumin 3.6 g/dL (3.4-5.0); Alkaline Phosphatase 137 U/L (46-116); Anion Gap 7.8 mmol/L (3-11); BUN 51 mg/dL (7-18); Bilirubin, Total 0.4 mg/dL (0.2-1.0); CO2 32.2 mmol/L (21.0-32.0); CREATININE 2.3 mg/dL (0.70-1.30); Calcium 8.7 mg/dL (8.5-10.1); Chloride 98 mmol/L (98-107); Estimated GFR 30.36 (mL/min/1.73m2); Glucose 147 mg/dL (74-106); Sodium 138 mmol/L (136-145); Total Protein 6.6 g/dL (6.4-8.2)
== END 2023-06-04 12:20 | disposition home or self-care (01) ==
LOC: LBN 12:19
PROVIDERS: PCP Nurse Practitioner Family; Visit Provider Nurse Practitioner Family
DX: D61.818 Other pancytopenia (principal); N18.9 Chronic kidney disease, unspecified
CPT/HCPCS: 80053; 85025

== ENCOUNTER 2023-06-10 23:07 | Outpatient (CLI) | payer MEDICARE, SELFPAY ==
[2023-06-10 16:19] LABS: Abs Immature Grans 0.04 10^3/uL (0.0-0.06); Absolute Basophil Count 0.02 10^3/uL (0.0-0.2); Absolute Eosinophil Count 0.11 10^3/uL (0.0-0.7); Absolute Lymphocyte Count 0.55 10^3/uL (1.2-3.4); Absolute Monocyte Count 0.78 10^3/uL (0.1-0.8); Absolute Neutrophil Count 5.03 10^3/uL (1.2-6.7); Basophils % 0.3; Eosinophils % 1.7; HCT 21.9 % (40.0-50.0); HGB 7.3 g/dL (13.5-17.5); Immature Grans % 0.6; Lymphocytes % 8.4; MCHC 33.3 % (32.0-36.0); MCV 87 fL (80-95); MPV 9.3 fL (8.0-11.0); Monocytes % 11.9; Neutrophils % 77.1; Nucleated RBC 0.3 % (0.0-0.3); Platelet Count 186 10^3/uL (130-400); RBC 2.52 10^6/uL (4.36-5.78); RDW 13.7 % (11.8-14.1); RDW-SD 42.4 fL; WBC 6.53 10^3/uL (4.4-10.8)
[2023-06-10 17:27] LABS: Iron 47 ug/dL (65-175); Total Iron Binding Capacity 210 ug/dL (250-450)
[2023-06-10 17:52] LABS: ALT 39 U/L (16-63); AST 20 U/L (15-37); Albumin 3.4 g/dL (3.4-5.0); Alkaline Phosphatase 128 U/L (46-116); Anion Gap 8.4 mmol/L (3-11); BUN 51 mg/dL (7-18); Bilirubin, Total 0.7 mg/dL (0.2-1.0); CO2 32.6 mmol/L (21.0-32.0); CREATININE 2.5 mg/dL (0.70-1.30); Calcium 8.6 mg/dL (8.5-10.1); Chloride 95 mmol/L (98-107); Estimated GFR 27.47 (mL/min/1.73m2); Ferritin 346 ng/mL (26-388); Glucose 175 mg/dL (74-106); Sodium 136 mmol/L (136-145); Total Protein 7.1 g/dL (6.4-8.2); Vitamin B12 645 pg/mL (193-986)
[2023-06-10 18:23] LABS: Hemoglobin A1C 8.7 % (<5.7)
[2023-06-12 08:55] LABS: Transferrin 186 mg/dL (201-352)
== END 2023-06-10 23:08 | disposition home or self-care (01) ==
LOC: LBO 23:12
PROVIDERS: PCP Nurse Practitioner Family; Visit Provider Nurse Practitioner Family
DX: E11.628 Type 2 diabetes mellitus with other skin complications; L08.9 Local infection of the skin and subcutaneous tissue, unspecified; E11.51 Type 2 diabetes mellitus with diabetic peripheral angiopathy without gangrene; D50.9 Iron deficiency anemia, unspecified; Z79.4 Long term (current) use of insulin; E11.42 Type 2 diabetes mellitus with diabetic polyneuropathy; E11.22 Type 2 diabetes mellitus with diabetic chronic kidney disease; N18.30 Chronic kidney disease, stage 3 unspecified
CPT/HCPCS: 36415; 80053; 85027; 82607; 82728; 83036; 83540; 83550; 84466; 85025

== ENCOUNTER → 2023-06-16 03:03 | Outpatient (CLI) | payer MEDICARE, SELFPAY ==
--- NOTE | 2023-06-16 08:00 | DI.RAD_ITS ---
Exam(s) XR FOOT LT COMPLETE EXAM: XR FOOT LT COMPLETE CLINICAL HISTORY: Osteomyelitis left great toe,m86.9. TECHNIQUE: 2D digital imaging was performed of the left foot. Three images were obtained. AP, obli que and lateral views were obtained. COMPARISON: CR XR FOOT LT COMPLETE from 05/07/2023 FINDINGS: BONES: No acute fracture is present. No bony destructive lesion is seen. There is again seen resectio n of the 5th toe to the level of the mid 5th metatarsal. JOINTS: No dislocation present. There are degenerative changes seen in the foot. SOFT TISSUE: Extensive atherosclerosis is present. There is soft tissue swelling of the foot. IMPRESSION: No radiographic evidence of osteomyelitis. DATA REPOSITORY: RADIATION DOSE DELIVERED:
== END ==
PROVIDERS: PCP Nurse Practitioner Family; Visit Provider Podiatrist
DX: M79.89 Other specified soft tissue disorders (principal)
CPT/HCPCS: 73630

== ENCOUNTER 2023-06-18 15:49 | Outpatient (CLI) | payer MEDICARE, SELFPAY ==
[2023-06-18 14:04] LABS: HCT 28.9 % (40.0-50.0); HGB 9.2 g/dL (13.5-17.5); MCH 29.6 pg (27.0-33.0); MCHC 31.8 % (32.0-36.0); MCV 93 fL (80-95); MPV 9.1 fL (8.0-11.0); Platelet Count 204 10^3/uL (130-400); RBC 3.11 10^6/uL (4.36-5.78); RDW 17.3 % (11.8-14.1); RDW-SD 56.9 fL; WBC 7.01 10^3/uL (4.4-10.8)
[2023-06-18 15:16] LABS: ALT 23 U/L (16-63); AST 18 U/L (15-37); Albumin 3.6 g/dL (3.4-5.0); Alkaline Phosphatase 110 U/L (46-116); Anion Gap 8.1 mmol/L (3-11); BUN 36 mg/dL (7-18); Bilirubin, Total 0.6 mg/dL (0.2-1.0); CO2 29.9 mmol/L (21.0-32.0); CREATININE 2.2 mg/dL (0.70-1.30); Calcium 9.6 mg/dL (8.5-10.1); Chloride 102 mmol/L (98-107); Estimated GFR 32.03 (mL/min/1.73m2); Glucose 178 mg/dL (74-106); Potassium 4.6 mmol/L (3.5-5.1); Sodium 140 mmol/L (136-145); Total Protein 7.5 g/dL (6.4-8.2); Uric Acid 9.8 mg/dL (3.5-7.2)
== END 2023-06-18 15:50 | disposition home or self-care (01) ==
LOC: LBO 15:49
PROVIDERS: Internal Medicine Rheumatology; PCP Nurse Practitioner Family; Visit Provider Nurse Practitioner Family
DX: D50.9 Iron deficiency anemia, unspecified (principal); E11.9 Type 2 diabetes mellitus without complications; M10.9 Gout, unspecified
CPT/HCPCS: 36415; 80053; 85027; 84550

== ENCOUNTER 2023-07-01 16:44 | Outpatient (REF) | payer MEDICARE, SELFPAY | END 2023-07-01 16:45 | disposition home or self-care (01) | LOC: LBN 16:44 | PROVIDERS: PCP Nurse Practitioner Family; Visit Provider Podiatrist | DX: E11.628 Type 2 diabetes mellitus with other skin complications (principal); L08.9 Local infection of the skin and subcutaneous tissue, unspecified; L97.529 Non-pressure chronic ulcer of other part of left foot with unspecified severity; S81.802A Unspecified open wound, left lower leg, initial encounter; I87.2 Venous insufficiency (chronic) (peripheral); L97.519 Non-pressure chronic ulcer of other part of right foot with unspecified severity | CPT/HCPCS: 87070; 87075; 87205 ==

== ENCOUNTER 2023-07-02 12:59 | Outpatient (CLI) | payer MEDICARE, SELFPAY ==
[2023-07-02 12:32] LABS: HCT 32.7 % (40.0-50.0); HGB 10.5 g/dL (13.5-17.5); MCH 29.5 pg (27.0-33.0); MCHC 32.1 % (32.0-36.0); MCV 92 fL (80-95); MPV 10.8 fL (8.0-11.0); Platelet Count 123 10^3/uL (130-400); RBC 3.56 10^6/uL (4.36-5.78); RDW 16.1 % (11.8-14.1); RDW-SD 54.1 fL; WBC 6.53 10^3/uL (4.4-10.8)
[2023-07-02 12:51] LABS: Potassium 4.1 mmol/L (3.5-5.1)
== END 2023-07-02 13:00 | disposition home or self-care (01) ==
LOC: LBO 12:59
PROVIDERS: PCP Nurse Practitioner Family; Visit Provider Nurse Practitioner Family
DX: E87.5 Hyperkalemia (principal); D50.9 Iron deficiency anemia, unspecified
CPT/HCPCS: 36415; 85027; 84132

== ENCOUNTER 2023-07-14 17:07 | Outpatient (REF) | payer MEDICARE, SELFPAY | END 2023-07-14 17:08 | disposition home or self-care (01) | LOC: LBN 17:07 | PROVIDERS: PCP Nurse Practitioner Family; Visit Provider Nurse Practitioner Family | DX: L72.0 Epidermal cyst (principal); L98.8 Other specified disorders of the skin and subcutaneous tissue | CPT/HCPCS: 87070; 87205 ==

== ENCOUNTER → 2023-07-20 14:50 | Outpatient (BNVA) | payer MEDICARE, SELFPAY | PROVIDERS: PCP Nurse Practitioner Family; Referring Provider Nurse Practitioner Family; Visit Provider Surgery | DX: Z51.89 Encounter for other specified aftercare (principal); M1A.9XX1 Chronic gout, unspecified, with tophus (tophi); E11.51 Type 2 diabetes mellitus with diabetic peripheral angiopathy without gangrene; E11.42 Type 2 diabetes mellitus with diabetic polyneuropathy; G89.4 Chronic pain syndrome | CPT/HCPCS: 99215 ==

== ENCOUNTER 2023-07-28 16:33 | Outpatient (CLI) | payer MEDICARE, SELFPAY ==
[2023-07-28 16:38] LABS: HCT 35.2 % (40.0-50.0); HGB 11.5 g/dL (13.5-17.5); MCH 29.2 pg (27.0-33.0); MCHC 32.7 % (32.0-36.0); MCV 89 fL (80-95); MPV 10.4 fL (8.0-11.0); Platelet Count 204 10^3/uL (130-400); RBC 3.94 10^6/uL (4.36-5.78); RDW 14.3 % (11.8-14.1); RDW-SD 46.7 fL
== END 2023-07-28 16:34 | disposition home or self-care (01) ==
LOC: LBO 16:34
PROVIDERS: PCP Nurse Practitioner Family; Visit Provider Internal Medicine Infectious Disease
DX: B95.61 Methicillin susceptible Staphylococcus aureus infection as the cause of diseases classified elsewhere (principal); R78.81 Bacteremia; D64.9 Anemia, unspecified
CPT/HCPCS: 36415; 85027; 87040

== ENCOUNTER → 2023-08-12 15:33 | Outpatient (BNVA) | payer MEDICARE, SELFPAY | PROVIDERS: PCP Nurse Practitioner Family; Referring Provider Nurse Practitioner Family; Visit Provider Podiatrist | DX: E11.621 Type 2 diabetes mellitus with foot ulcer (principal); L97.522 Non-pressure chronic ulcer of other part of left foot with fat layer exposed; E66.01 Morbid (severe) obesity due to excess calories; E11.22 Type 2 diabetes mellitus with diabetic chronic kidney disease; Z79.4 Long term (current) use of insulin; N18.9 Chronic kidney disease, unspecified; I87.2 Venous insufficiency (chronic) (peripheral); I73.9 Peripheral vascular disease, unspecified | CPT/HCPCS: 11042 ==

== ENCOUNTER → 2023-09-16 15:29 | Outpatient (BNVA) | payer MEDICARE, SELFPAY | PROVIDERS: PCP Nurse Practitioner Family; Referring Provider Nurse Practitioner Family; Visit Provider Podiatrist | DX: E11.621 Type 2 diabetes mellitus with foot ulcer (principal); R60.0 Localized edema; R20.8 Other disturbances of skin sensation; L65.9 Nonscarring hair loss, unspecified | CPT/HCPCS: 11042 ==

== ENCOUNTER → 2023-10-08 15:34 | Outpatient (BNVA) | payer MEDICARE, SELFPAY | PROVIDERS: PCP Nurse Practitioner Family; Referring Provider Nurse Practitioner Family; Visit Provider Podiatrist | DX: R09.89 Other specified symptoms and signs involving the circulatory and respiratory systems (principal); R60.0 Localized edema; R20.8 Other disturbances of skin sensation; L65.9 Nonscarring hair loss, unspecified; L60.3 Nail dystrophy; Z89.422 Acquired absence of other left toe(s); L97.529 Non-pressure chronic ulcer of other part of left foot with unspecified severity; R20.9 Unspecified disturbances of skin sensation; E11.42 Type 2 diabetes mellitus with diabetic polyneuropathy | CPT/HCPCS: 11055 ==

== ENCOUNTER → 2023-10-27 15:23 | Outpatient (BNVA) | payer MEDICARE, SELFPAY | PROVIDERS: PCP Nurse Practitioner Family; Referring Provider Nurse Practitioner Family; Visit Provider Podiatrist | DX: L97.526 Non-pressure chronic ulcer of other part of left foot with bone involvement without evidence of necrosis; E66.01 Morbid (severe) obesity due to excess calories; E08.621 Diabetes mellitus due to underlying condition with foot ulcer; I87.2 Venous insufficiency (chronic) (peripheral); N17.9 Acute kidney failure, unspecified; N18.9 Chronic kidney disease, unspecified; R78.81 Bacteremia; B95.61 Methicillin susceptible Staphylococcus aureus infection as the cause of diseases classified elsewhere; I73.9 Peripheral vascular disease, unspecified; L60.3 Nail dystrophy; M18.9 Osteoarthritis of first carpometacarpal joint, unspecified; Z79.4 Long term (current) use of insulin | CPT/HCPCS: 99213 ==

== ENCOUNTER → 2024-01-26 15:17 | Outpatient (BNVA) | payer MEDICARE, SELFPAY | PROVIDERS: PCP Nurse Practitioner Family; Referring Provider Nurse Practitioner Family; Visit Provider Podiatrist | DX: E66.01 Morbid (severe) obesity due to excess calories; E08.621 Diabetes mellitus due to underlying condition with foot ulcer; I87.2 Venous insufficiency (chronic) (peripheral); N17.9 Acute kidney failure, unspecified; N18.9 Chronic kidney disease, unspecified; B95.61 Methicillin susceptible Staphylococcus aureus infection as the cause of diseases classified elsewhere; I73.9 Peripheral vascular disease, unspecified; L60.3 Nail dystrophy | CPT/HCPCS: 11719; 11720; 11721 ==

== ENCOUNTER → 2024-03-09 13:32 | Outpatient (BNVA) | payer MEDICARE, SELFPAY | PROVIDERS: PCP Nurse Practitioner Family; Referring Provider Nurse Practitioner Family; Visit Provider Podiatrist | DX: M86.9 Osteomyelitis, unspecified (principal); L97.512 Non-pressure chronic ulcer of other part of right foot with fat layer exposed; L03.031 Cellulitis of right toe; E08.621 Diabetes mellitus due to underlying condition with foot ulcer; I87.2 Venous insufficiency (chronic) (peripheral); N17.9 Acute kidney failure, unspecified; N18.9 Chronic kidney disease, unspecified; I73.9 Peripheral vascular disease, unspecified; Z79.4 Long term (current) use of insulin; Z89.421 Acquired absence of other right toe(s); E66.01 Morbid (severe) obesity due to excess calories | CPT/HCPCS: 11044 ==

== ENCOUNTER → 2024-03-09 15:14 | Outpatient (CLI) | payer MEDICARE, SELFPAY ==
--- NOTE | 2024-03-09 15:04 | DI.RAD_ITS ---
Exam(s) XR FOOT RT COMPLETE EXAM: XR FOOT RT COMPLETE CLINICAL HISTORY: Osteomyelitis right second toe, M86.9. TECHNIQUE: 2D digital imaging was performed. COMPARISON: CR XR FOOT LT COMPLETE from 02/24/2023 CR XR FOOT LT COMPLETE from 05/07/2023 CR XR FOOT LT COMPLETE from 06/16/2023 FINDINGS: 3 views There has been mid level amputation of the great toe metatarsal. Bone ages are sharp and no evidence of osteomyelitis at this level. There is significant degenerative changes at the tarsometatarsal joints. Other metatarsals exhibit n o evidence of osteomyelitis. There is normal mineralization of the phalanges of the 3rd, 4th, and 5t h toes. The distal phalanx of the 2nd toe appears to have been at least partially amputated and ther e appears to be also an bandage over this area. There is no evidence of obvious osteomyelitis in the proximal and middle phalanx of the 2nd toe. IMPRESSION: There appears to have been recent amputation of most of the distal phalanx of the 2nd toe there is so me gas in the soft tissues but difficult to assess accurately as there is a bandage material over thi s region. If clinically indicated follow-up MRI can be performed. DATA REPOSITORY: RADIATION DOSE DELIVERED:
== END ==
PROVIDERS: PCP Nurse Practitioner Family; Visit Provider Podiatrist
DX: M86.171 Other acute osteomyelitis, right ankle and foot (principal)
CPT/HCPCS: 11044; 73630

== ENCOUNTER 2024-03-09 15:27 | Outpatient (REF) | payer MEDICARE, SELFPAY ==
--- NOTE | 2024-03-09 14:30 | SKI_PTH ---
PATIENT: Bereket Melara LOC: [facility] U#:[id number] AGE/SX: 69/M ROOM: RE03/09/[address]: Julia Jean DPM : 1955 BED: DIS: 03/09/2024 SPEC #: [id number] RECD: 03/09/24 17:37 STATUS: ILDA REYadira #: [id number] LINDA: 03/09/24 14:[address]: Julia Jean DEPT: Surgical Specimen RECD BY: Mindy Magdaleno ENTERED: 03/09/24 17:39 SP TYPE: TREVA KIM DR: Jarrod Schultz, STENCILING MACHINE TENDER Tissues: 1 - SKIN BIOPSY(SHAVE/PUNCH) Procedures: GROSS AND MICRO LEVEL 5 DECALCIFICATION Comments: [id number]
== END 2024-03-09 15:28 | disposition home or self-care (01) ==
LOC: LBN 15:27
PROVIDERS: PCP Nurse Practitioner Family; Visit Provider Podiatrist
DX: L97.512 Non-pressure chronic ulcer of other part of right foot with fat layer exposed (principal); M86.9 Osteomyelitis, unspecified
CPT/HCPCS: 87077; 87070; 87075; 87186; 87205; 88305; 88307; 88311

== ENCOUNTER → 2024-03-15 15:36 | Outpatient (BNVA) | payer MEDICARE, SELFPAY | PROVIDERS: PCP Nurse Practitioner Family; Referring Provider Nurse Practitioner Family; Visit Provider Podiatrist | DX: I87.2 Venous insufficiency (chronic) (peripheral); E08.621 Diabetes mellitus due to underlying condition with foot ulcer; L97.512 Non-pressure chronic ulcer of other part of right foot with fat layer exposed; M86.9 Osteomyelitis, unspecified; L03.031 Cellulitis of right toe; N17.9 Acute kidney failure, unspecified; N18.9 Chronic kidney disease, unspecified; I73.9 Peripheral vascular disease, unspecified; Z79.4 Long term (current) use of insulin; Z89.411 Acquired absence of right great toe; E66.01 Morbid (severe) obesity due to excess calories; M86.8X7 Other osteomyelitis, ankle and foot | CPT/HCPCS: 11042 ==

== ENCOUNTER 2024-06-10 12:52 | Emergency (ER) | payer MEDICARE, SELFPAY ==
[2024-06-10 12:55] VITALS: BP 173/57; PULSE 95; RESP 18; TEMP 37.1; O2SAT 97
--- NOTE | 2024-06-10 13:04 | W.ED.GENAD ---
Discharge Plan Disposition Patient Disposition: Transfer-Acute Inpatient Care Specific Acute Inpt Facility: [facility] Condition: Serious Discharge Details Chief Complaint: Cellulitis Clinical Impression: Acute osteomyelitis of toe of right foot, Acute lymphangitis of right foot Primary Care Provider: Jarrod Schultz ED Provider: Roshan Francis [place] Meds and New Rx's Prescriptions: No Action nitroglycerin 0.4 mg tablet, sublingual 0.4 mg SL Q5-15M PRN (Reason: chest pain) Qty: 25 0RF allopurinol 100 mg tablet 400 mg PO DAILY dapagliflozin propanediol 10 mg tablet 10 mg PO DAILY ezetimibe 10 mg tablet 10 mg PO DAILY Patient Comments: TAKE ONE TABLET BY MOUTH EVERY DAY (DME) diabetic shoes See Rx Instructions .Route .MEDSUPPLY Qty: 2 0RF Rx Instructions: As directed losartan 25 mg tablet 25 mg PO DAILY Patient Comments: TAKE ONE TABLET BY MOUTH EVERY DAY sertraline 50 mg tablet 50 mg PO DAILY Qty: 90 3RF cholecalciferol (vitamin D3) 50 mcg (2,000 unit) capsule 50 mcg PO DAILY triamcinolone acetonide 0.5 % ointment 1 applic Topical BID PRN (Reason: dermatitis) Qty: 15 3RF (DME) FreeStyle Alfredo 2 Sensor Kit See Rx Instructions .ROUTE .MEDSUPPLY Qty: 2 6RF Rx Instructions: As directed carvedilol 12.5 mg tablet 6.25 mg .ROUTE BID Rx Instructions: 6.25 mg twice a day; pregabalin 200 mg capsule 150 mg PO BID furosemide 40 mg tablet 40 mg PO DAILY (DME) BD Insulin Syringe 1 EACH syringe 1 ea Sub-Q QID Qty: 3 Rx Instructions: B/D INSULIN ULTRA-FINE 30GX0.3/ (DME) Aerochamber Plus Flow-Vu 1 EACH spacer 1 ea Miscellaneous PRN Qty: 1 0RF (DME) blood-glucose meter [FreeStyle Lite Meter] 1 EACH kit 1 ea Miscellaneous TID Qty: 1 0RF (DME) FreeStyle Lite Strips Strip 1 ea Miscellaneous QID Qty: 400 6RF Rx Instructions: 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 E11.42 (DME) FreeStyle Alfredo 2 [place] Misc See Rx Instructions .ROUTE .MEDSUPPLY Qty: 1 0RF Rx Instructions: As directed (DME) BD Regular Bevel [place] 21 gauge x 1 1/2 needle 1 ea Miscellaneous QID Qty: 100 6RF Rx Instructions: BD U100 29g /2 with safety lock insulin syringes Dx E11.49 rosuvastatin 40 mg tablet See Rx Instructions .ROUTE .COMPLEX Qty: 90 3RF Dose Instruction: TAKE ONE TABLET BY MOUTH EVERY DAY AT BEDTIME Rx Instructions: TAKE ONE TABLET BY MOUTH EVERY DAY AT BEDTIME ferrous sulfate 325 mg (65 mg iron) tablet 325 mg PO DAILY Qty: 90 3RF insulin glargine [Basaglar KwikPen U-100 Insulin] 100 unit/mL (3 mL) insulin pen 40 unit subcut BID Qty: 90 3RF clopidogrel 75 mg tablet 75 mg PO DAILY Qty: 90 3RF fluticasone propionate [Flonase Allergy Relief] 50 mcg/actuation spray,suspension 1 spray intranasal DAILY PRN (Reason: nasal congestion) Qty: 16 3RF Rx Instructions: administer into each nostril amlodipine 10 mg tablet 10 mg PO DAILY gabapentin 100 mg capsule 200 mg PO TID Rx Instructions: per [facility] discharge Lactobacillus acidophilus Capsule 10 mg PO DAILY (DME) pen needle, diabetic [BD Ultra-Fine Short Pen Needle] 31 gauge x 5/16 needle See Rx Instructions .ROUTE .COMPLEX Qty: 100 4RF Dose Instruction: CHECK BLOOD SUGAR FOUR TIMES A DAY Rx Instructions: CHECK BLOOD SUGAR FOUR TIMES A DAY Humulin R U-500 (Conc) Kwikpen 500 unit/mL (3 mL) insulin pen 90 unit subcut QACBREAK Qty: 47 3RF hydrocodone-acetaminophen 7.5-325 mg tablet 1 tab PO BID MDD 2 tabs PRN (Reason: back pain) Qty: 56 0RF multivitamin Tablet 1 tab PO DAILY acetaminophen 500 mg Tablet 1,000 mg PO Q6H PRN docusate sodium 100 mg Capsule 100 mg PO BID Qty: 60 0RF HPI General Mode of arrival: ambulatory. Date/Time Provider Initiated Documentation: 06/10/24 12:54. Limitations to Documentation: no limitations. Information obtained by: patient. HPI Narrative: 69-year-old male with multiple medical problems including history of insulin-dependent diabetes, coronary artery disease, peripheral vascular disease, approximately 1 month status post right second toe amputation, here with increased inflammation at surgical site and associated chills. Patient notes generally not feeling well with chills over the past couple days. Seen by home health nurse today who was concerned with increased inflammation of the surgical wound. Related Data Home Medications ?Medication ?Instructions ?Recorded ?Confirmed insulin syringe-needle U-100 1 mL ##3 10/14/16 04/29/24 26 x 1/2 (BD Insulin Syringe) inhalational spacing device #1 unit 03/15/18 04/29/24 (Aerochamber Plus Flow-Vu) blood-glucose meter (FreeStyle ##1 05/21/18 04/29/24 Lite Meter kit) blood sugar diagnostic (FreeStyle #400 strips 09/15/19 04/29/24 Lite Strips) acetaminophen 500 mg tablet 1,000 mg PO Q6H PRN 06/14/20 06/10/24 multivitamin 1 tab PO DAILY 06/14/20 06/10/24 flash glucose scanning reader #1 ea 04/09/21 04/29/24 (FreeStyle Alfredo 2 [place]) needle (disp) 21 G 21 gauge x 1 #100 ea 04/12/21 04/29/24 1/2 (BD Regular Bevel [place]) nitroglycerin 0.4 mg sublingual 0.4 mg sublingual Q5-15M PRN chest 02/17/23 06/10/24 tablet pain #25 tabs docusate sodium 100 mg capsule 100 mg PO BID #60 caps 02/27/23 06/10/24 rosuvastatin 40 mg tablet See Rx Instructions .Route 06/05/23 06/10/24 .COMPLEX #90 tabs sertraline 50 mg tablet 50 mg PO DAILY #90 tabs 06/09/23 06/10/24 ferrous sulfate 325 mg (65 mg 325 mg PO DAILY #90 tabs 06/11/23 06/10/24 iron) tablet cholecalciferol (vitamin D3) 50 50 mcg PO DAILY 07/01/23 06/10/24 mcg (2,000 unit) capsule insulin glargine 100 unit/mL (3 40 unit (0.4 mL) subcut BID #90 mL 07/15/23 06/10/24 mL) subcutaneous pen (Basaglar KwikPen U-100 Insulin) flash glucose sensor (FreeStyle #2 ea 09/25/23 04/29/24 Alfredo 2 Sensor kit) triamcinolone acetonide 0.5 % 1 applic topical BID PRN 09/25/23 06/10/24 topical ointment dermatitis #15 grams clopidogrel 75 mg tablet 75 mg PO DAILY #90 tabs 01/06/24 06/10/24 fluticasone propionate 50 1 spray intranasal DAILY PRN nasal 01/18/24 06/10/24 mcg/actuation nasal congestion #16 grams spray,suspension (Flonase Allergy Relief) dapagliflozin propanediol 10 mg 10 mg PO DAILY 02/02/24 06/10/24 tablet diabetic shoes #2 ea 02/02/24 04/29/24 ezetimibe 10 mg tablet 10 mg PO DAILY 02/02/24 06/10/24 Lactobacillus acidophilus 10 mg PO DAILY 04/20/24 06/10/24 amlodipine 10 mg tablet 10 mg PO DAILY 04/20/24 06/10/24 gabapentin 100 mg capsule 200 mg PO TID 04/20/24 06/10/24 carvedilol 12.5 mg tablet 6.25 mg .Route BID 04/29/24 06/10/24 furosemide 40 mg tablet 40 mg PO DAILY 04/29/24 06/10/24 pregabalin 200 mg capsule 150 mg PO BID 04/29/24 06/10/24 allopurinol 100 mg tablet 400 mg PO DAILY 05/16/24 06/10/24 losartan 25 mg tablet 25 mg PO DAILY 05/16/24 06/10/24 pen needle, diabetic 31 gauge x #100 ea 05/16/2402/10 (BD Ultra-Fine Short Pen Needle) insulin regular hum U-500 conc 500 90 unit (0.18 mL) subcut QACBREAK 05/25/24 06/10/24 unit/mL(3 mL) subcut pen (Humulin #47 mL R U-500 (Conc) Insulin Kwikpen) hydrocodone 7.5 mg-acetaminophen 1 tab PO BID PRN back pain #56 tabs 06/10/24 06/10/24 325 mg tablet Previous Rx's ?Medication ?Instructions ?Recorded inhalational spacing device #1 unit 03/15/18 (Aerochamber Plus Flow-Vu) blood-glucose meter (FreeStyle ##1 05/21/18 Lite Meter kit) blood sugar diagnostic (FreeStyle #400 strips 09/15/19 Lite Strips) flash glucose scanning reader #1 ea 04/09/21 (FreeStyle Alfredo 2 [place]) needle (disp) 21 G 21 gauge x 1 #100 ea 04/12/21 1/2 (BD Regular Bevel [place]) nitroglycerin 0.4 mg sublingual 0.4 mg sublingual Q5-15M PRN chest 02/17/23 tablet pain #25 tabs docusate sodium 100 mg capsule 100 mg PO BID #60 caps 02/27/23 rosuvastatin 40 mg tablet See Rx Instructions .Route 06/05/23 .COMPLEX #90 tabs sertraline 50 mg tablet 50 mg PO DAILY #90 tabs 06/09/23 ferrous sulfate 325 mg (65 mg 325 mg PO DAILY #90 tabs 06/11/23 iron) tablet insulin glargine 100 unit/mL (3 40 unit (0.4 mL) subcut BID #90 mL 07/15/23 mL) subcutaneous pen (Basaglar KwikPen U-100 Insulin) flash glucose sensor (FreeStyle #2 ea 09/25/23 Alfredo 2 Sensor kit) triamcinolone acetonide 0.5 % 1 applic topical BID PRN 09/25/23 topical ointment dermatitis #15 grams clopidogrel 75 mg tablet 75 mg PO DAILY #90 tabs 01/06/24 fluticasone propionate 50 1 spray intranasal DAILY PRN nasal 01/18/24 mcg/actuation nasal congestion #16 grams spray,suspension (Flonase Allergy Relief) diabetic shoes #2 ea 02/02/24 pen needle, diabetic 31 gauge x #100 ea 05/16/24 5/16 (BD Ultra-Fine Short Pen Needle) insulin regular hum U-500 conc 500 90 unit (0.18 mL) subcut QACBREAK 05/25/24 unit/mL(3 mL) subcut pen (Humulin #47 mL R U-500 (Conc) Insulin Kwikpen) hydrocodone 7.5 mg-acetaminophen 1 tab PO BID PRN back pain #56 tabs 06/10/24 325 mg tablet Allergies Allergy/AdvReac Type Severity Reaction Status Date / Time cephalexin monohydrate (From Allergy Severe SOB Verified 06/10/24 12:58 Keflex) Penicillins Allergy Unknown Skin Rash Verified 06/10/24 12:58 General Stated Complaint: Cellulitis MIRIAM: 3 Review of Systems Constitutional Constitutional: Reports as per HPI and Reports chills Exam Const General: cooperative and no acute distress HENMT Mouth: moist mucous membranes Eyes Conjunctivae: normal conjunctivae Sclera: normal sclerae Resp Auscultation: clear to auscultation bilaterally, no rales, no rhonchi and no wheezes Cardio Rate: regular rate and not tachycardic Rhythm: regular rhythm GI Palpation: soft, not firm, no guarding, no masses, not rigid and nontender Skin General skin exam: no rashes or lesions noted Neuro General: patient alert, patient awake and tone normal Extrem Left lower extremity: foot Details: warmth, edema and other (Status post remote first toe amputation, second toe amputation wound with packing, surrounding erythema of the distal foot, erythema is tracking up dorsal foot to his ankle) Psych Appearance: grossly normal Mental Status: mental status grossly normal Course Vital Signs Vital signs: Vital Signs Temperature 37.1 C 06/10/24 12:55 Pulse 95 H 06/10/24 12:55 Respiratory Rate 18 06/10/24 12:55 Blood Pressure 173/57 H 06/10/24 12:55 Pulse Oximetry 97 06/10/24 12:55 Temperature 37.1 C 06/10/24 12:55 Temperature Source Oral 06/10/24 12:55 Pulse 95 H 06/10/24 12:55 Respiratory Rate 18 06/10/24 12:55 Blood Pressure 173/57 H 06/10/24 12:55 Blood Pressure Position Sitting 06/10/24 12:55 Pulse Oximetry 97 06/10/24 12:55 Oxygen Delivery Method Room Air 06/10/24 12:55 Oxygen Flow Rate 0 06/10/24 12:55 Pain Level 7 06/10/24 12:55 Medical Decision Making 1335 -- 69-year-old male with multimedical problems including history of insulin-dependent diabetes, peripheral scar disease, status post remote right great toe amputation, status post right second toe amputation 03/30/2024, here with increased pain and inflammation of his distal foot with tracking erythema dorsal foot. Concern for postoperative wound infection with cellulitis versus osteomyelitis. Patient has had chills and nausea. He is afebrile at this time but heart rate is elevated at 95. I will check labs including blood cultures and lactate. Plan to consult with vascular team at [facility]. 1402 -- X-ray of the foot was interpreted by radiology: Dislocation at the 3rd MTP joint. Erosion of the 3rd metatarsal head consistent with osteomyelitis. Erosion at the stump of the 2nd metatarsal, also suspicious for osteomyelitis. Labs reviewed and leukocytosis noted. Mild elevation of lactate. Patient is experiencing nausea. I will give ondansetron 4 mg IV. I will initiate treatment with vancomycin 2g IV. 1522 --I spoke with Dr. Galdamez at [facility], he will accept the patient in transfer. He does recommend adding additional antibiotic coverage for gram-negative bacteria. I will start ciprofloxacin 40 mg IV. Medical Records Medical records reviewed: Yes I reviewed the patient's medical records. Medical records narrative: [facility] records reviewed: vascular history: 04/16 popliteal artery atherectomy with diamondback, popliteal balloon angioplasty, right great toe amputation for nonhealing right toe wound 05/17 right great toe amputation site debridement for devitalized tissue 03/30/2024: Right lower extremity angiogram: Widely patent right [facility] and DFA. Mild diffuse stenosis of right SFA. Severe distal stenosis of distal SFA and P1. Minimal disease of P2 and moderate stenosis of P3. Drug coated balloon angioplasty of right proximal popliteal artery. Plain balloon angioplasty of distal right popliteal artery. 03/30/2024: Right toe amputation Lab Data Lab results reviewed: Yes I reviewed the patient's lab results. Labs: 06/10/24 13:12 Blood Blood Culture - Pending 06/10/24 13:24 Blood Blood Culture - Pending Laboratory Tests Range/Units 06/10/24 13:12 WBC (4.4-10.8) 10^3/uL 13.02 H RBC (4.36-5.78) 10^6/uL 3.78 L Hgb (13.5-17.5) g/dL 11.2 L Hct (40.0-50.0) % 33.7 L MCV (80-95) fL 89 MCH (27.0-33.0) pg 29.6 MCHC (32.0-36.0) % 33.2 RDW (11.8-14.1) % 14.6 H Plt Count (130-400) 10^3/uL 126 L MPV (8.0-11.0) fL 10.9 Immature Gran % % 0.4 Neutrophils % % 83.8 Lymphocytes % % 3.9 Monocytes % % 11.3 Eosinophils % % 0.4 Basophils % % 0.2 Nucleated RBC % (0.0-0.3) % 0.0 Absolute Neutrophils (1.2-6.7) 10^3/uL 10.91 H Absolute Lymphocytes (1.2-3.4) 10^3/uL 0.51 L Absolute Monocytes (0.1-0.8) 10^3/uL 1.47 H Absolute Eosinophils (0.0-0.7) 10^3/uL 0.05 Absolute Basophils (0.0-0.2) 10^3/uL 0.03 ESR (0-20) mm/hr 68 H VBG Lactate (0.6-1.4) mmol/L 1.6 H Sodium (136-145) mmol/L 132 L Potassium (3.5-5.1) mmol/L 3.7 Chloride (98-107) mmol/L 93 L Carbon Dioxide (21.0-32.0) mmol/L 27.3 Anion Gap (3-11) mmol/L 11.7 H BUN (7-18) mg/dL 40 H Creatinine (0.70-1.30) mg/dL 1.8 H Est GFR (CKD-EPI 2020) (mL/min/1.73m2) 40.49 Glucose (74-106) mg/dL 113 H Calcium (8.5-10.1) mg/dL 8.9 Total Bilirubin (0.2-1.0) mg/dL 1.73 H AST (15-37) U/L 41 H ALT (16-63) U/L 43 Alkaline Phosphatase (46-116) U/L 178 H C-Reactive Protein (<or=0.5) mg/dL 17.74 H Total Protein (6.4-8.2) g/dL 7.2 Albumin (3.4-5.0) g/dL 3.1 L Quality:SDOH Health Related Social Needs: No Data to Display PFSH All Active Problems (Updated 06/10/24 @ 14:37 by Roshan Francis MD) Acute lymphangitis of right foot (Acute) Acute osteomyelitis of toe of right foot (Acute) Bilateral lower extremity edema (Acute) Hearing loss (Acute) Gangrene of toe of right foot (Acute) Ischemic ulcer of right foot with fat layer exposed (Acute) Osteomyelitis of right foot (Acute) Diabetes mellitus with foot ulcer due to multiple causes (Acute) Gallstones without obstruction of gallbladder (Acute) BPH (benign prostatic hyperplasia) (Chronic) History of smoking at least 1 pack per day for at least 30 years (Acute) Gouty tophi of hand (Acute) Chronic gouty arthropathy with tophi (Acute) Hyperkalemia (Acute 07/26/14) Hypertension (Chronic) Diabetic peripheral angiopathy (Chronic) Diabetic peripheral neuropathy (Chronic) Chronic pain syndrome (Chronic) low back pain, drug contract at [facility] PMS and drug screen on 08/1221-patient on chronic hydrocodone Coronary artery disease involving [place] coronary artery of [place] heart with unstable angina pectoris (Chronic 08/30/17) 08-24-2017 [facility] cardiac CATH: 3 vessel disease (LAD,LCx and RCA): coronary bypass sx pending Dyspnea on exertion (Chronic 12/16/13) negative nuclear stress test echocardiogram: normal/ EF 65%/no valvulopathy Cardiol.eval. : not ischemia related ([facility]) Hyperlipidemia (Chronic) Peripheral autonomic neuropathy in disorders classified elsewhere (Chronic 09/15/14) Right heart failure (Acute) Cellulitis of foot, right (Acute) Hand arthritis (Acute) Chronic kidney disease (CKD) (Chronic) 08/2021- Cr 1.7 Diabetes mellitus type 2, insulin dependent (Acute) with nephropathy Obesity (Chronic) Gout (Chronic) 08/2021-diagnosed by rheumatology at [facility]-probable gout tophi of hands Edema (Acute) Diabetic retinopathy (Acute ~12/2021) B/L MODERATE-01/17 Leg wound, left (Acute) Diabetic foot infection (Acute) Cellulitis (Acute) Chronic foot ulcer (Acute) Nail dystrophy (Acute) Peripheral arterial disease (Acute) Acute Lyme disease (Acute) Elevated troponin (Acute) Erythema migrans (Lyme disease) (Acute) Gram-positive cocci bacteremia (Acute) Acute kidney injury superimposed on chronic kidney disease (Acute) Staphylococcus aureus bacteremia (Acute) Gouty arthritis of hand (Acute) Chronic acquired lymphedema (Acute) Bilateral lower extremities Chronic venous stasis dermatitis (Acute) Bilateral lower extremities Chronic venous insufficiency of lower extremity (Acute) Bilateral lower extremities Diabetic ulcer of toe of left foot (Acute) Diabetic ulcer of right foot associated with diabetes mellitus due to underlying condition (Acute) Obesity, morbid, BMI 40.0-49.9 (Acute) Lightheadedness (Acute) Weakness (Acute) Ulcer of left foot with bone involvement without evidence of necrosis (Acute) Hyponatremia (Acute) Chronic ulcer of left foot (Acute) Pancytopenia (Acute) Iron deficiency anemia (Acute) Medical History Palliative care encounter Toe osteomyelitis, right s/p amputation. Pseudomonas osteomyelitis 6wk IV Ceftazidime per ID Amputation of toe Congestive heart failure TIA (transient ischemic attack) Proliferative diabetic retinopathy of both eyes without macular edema associated with diabetes mellitus due to underlying condition (01/18/18) 01/18/18-[facility] 01/31/19-[facility] Stroke (~2008) Obesity DM (diabetes mellitus) Laceration of lower leg with foreign body Diabetic foot ulcer Lymphedema Scrotal hematoma (07/26/14) A. S/p hydrocelectomy 07/24/14 Surgical History 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 secondary to diabetic ulcer, angiopathy S/P femoral-popliteal bypass surgery right. 03/2020 History of cataract removal with insertion of prosthetic lens History of hydrocelectomy (07/24/14) right S/P CABG x 3 (08/30/17) [facility] [place] 08-29-2017 : no fup needed H/O surgical procedure A. Hydrocelectomy 07/24/2014 Family History Mother No problems noted. Father Diabetes Myocardial infarction Heart disease Sister Diabetes Social History Smoking/Tobacco Use Status: Former Tobacco Use Quit Date: 09/28/83 Tobacco: How many years used: 5 Smoking risk assessment performed?: Yes Alcohol Intake: current Alcohol Intake frequency: holidays/special occasions only Drug use: Occasionally Substance use type: marijuana Pets and animals: Yes Pets and animals: cat(s) and dog(s) What type of physical activity do you participate in: none Do you feel safe at home: Yes Do you feel safe in your relationship?: Yes
[2024-06-10 13:29] LABS: Lactate 1.6 mmol/L (0.6-1.4)
[2024-06-10 13:33] LABS: Abs Immature Grans 0.05 10^3/uL (0.0-0.06); Absolute Eosinophil Count 0.05 10^3/uL (0.0-0.7); Absolute Lymphocyte Count 0.51 10^3/uL (1.2-3.4); Absolute Monocyte Count 1.47 10^3/uL (0.1-0.8); Basophils % 0.2 %; Eosinophils % 0.4 %; HCT 33.7 % (40.0-50.0); HGB 11.2 g/dL (13.5-17.5); Immature Grans % 0.4 %; Lymphocytes % 3.9 %; MCH 29.6 pg (27.0-33.0); MCHC 33.2 % (32.0-36.0); MCV 89 fL (80-95); MPV 10.9 fL (8.0-11.0); Monocytes % 11.3 %; Neutrophils % 83.8 %; Platelet Count 126 10^3/uL (130-400); RBC 3.78 10^6/uL (4.36-5.78); RDW 14.6 % (11.8-14.1); RDW-SD 46.7 fL; WBC 13.02 10^3/uL (4.4-10.8)
[2024-06-10 13:34] LABS: Absolute Basophil Count 0.03 10^3/uL (0.0-0.2); Absolute Neutrophil Count 10.91 10^3/uL (1.2-6.7); ESR 68 mm/hr (0-20)
[2024-06-10 13:46] LABS: ALT 43 U/L (16-63); AST 41 U/L (15-37); Albumin 3.1 g/dL (3.4-5.0); Alkaline Phosphatase 178 U/L (46-116); Anion Gap 11.7 mmol/L (3-11); BUN 40 mg/dL (7-18); Bilirubin, Total 1.73 mg/dL (0.2-1.0); CO2 27.3 mmol/L (21.0-32.0); CREATININE 1.8 mg/dL (0.70-1.30); Calcium 8.9 mg/dL (8.5-10.1); Chloride 93 mmol/L (98-107); Estimated GFR 40.49 (mL/min/1.73m2); Glucose 113 mg/dL (74-106); Potassium 3.7 mmol/L (3.5-5.1); Sodium 132 mmol/L (136-145); Total Protein 7.2 g/dL (6.4-8.2)
--- NOTE | 2024-06-10 13:51 | DI.RAD_ITS ---
Exam(s) XR FOOT RT COMPLETE EXAM: XR FOOT RT COMPLETE CLINICAL HISTORY: infection, pain. TECHNIQUE: 2D digital imaging was performed. Three views. COMPARISON: CR XR FOOT RT COMPLETE from 03/09/2024 FINDINGS: BONES: No acute fracture is present. There has been prior amputation at the level of the mid 1st met atarsal. This appears unchanged. There has been interval amputation the 2nd toe to the level of the distal 2nd metatarsal. There is apparent erosion at the 2nd metatarsal stump. There is an erosion at the medial aspect of the 3rd metatarsal head. There is chronic appearing deformity of the 5th met atarsal. JOINTS: There is dislocation dorsally and laterally at the 3rd MTP joint. Advanced degenerative [place] of the tarsal metatarsal joints. SOFT TISSUE: Severe soft tissue swelling. Vascular calcifications. IMPRESSION: Dislocation at the 3rd MTP joint. Erosion of the 3rd metatarsal head consistent with osteomyelitis. Erosion at the stump of the 2nd metatarsal, also suspicious for osteomyelitis. DATA REPOSITORY: RADIATION DOSE DELIVERED:
[2024-06-10] MEDS: Ondansetron 4 MG/2 ML VIAL IVP (14:10)
[2024-06-10 14:16] LABS: C-Reactive Protein 17.74 mg/dL (<or=0.5)
[2024-06-10] MEDS: Lactated Ringers 500 ML 1000 ML IV (14:30)
[2024-06-10] MEDS: VANCOMYCIN/WATER (PEG) 2 GM/400 ML BAG IV (14:50)
[2024-06-10] MEDS: CIPROFLOXACIN 400 MG/200 ML BAG 200 MG IVPB (17:00)
[2024-06-10 17:30] VITALS: BP 128/66; PULSE 76; RESP 20; TEMP 36.8; O2SAT 98
[2024-06-10 21:28] VITALS: BP 117/62; PULSE 72; RESP 20; TEMP 37; O2SAT 98
[2024-06-10 21:44] VITALS: BP 120/68; PULSE 74; RESP 18; TEMP 37; O2SAT 98
[2024-06-11 02:16] VITALS: BP 116/50; PULSE 79; RESP 18; O2SAT 97
[2024-06-11] MEDS: ACETAMINOPHEN 1,000 MG/100 ML BTL 400 MG (02:38)
[2024-06-11] MEDS: Ketorolac 15 MG/ML VIAL (02:38)
== END 2024-06-11 02:50 | disposition short-term general hospital (02) ==
PROVIDERS: Emergency Provider Student in an Organized Health Care Education/Training Program; PCP Nurse Practitioner Family
DX: M86.171 Other acute osteomyelitis, right ankle and foot (principal); L03.125 Acute lymphangitis of right lower limb; Z89.421 Acquired absence of other right toe(s)
CPT/HCPCS: 36415; 80053; 85652; 87040; 96365; 96366; 96367; 96375; 99285; 73630; 83605; 85025; 86140; J0131; J0744; J1885; J2405; J3372

== ENCOUNTER 2024-06-27 15:43 | Outpatient (REF) | payer MEDICARE, SELFPAY ==
[2024-06-27 13:41] LABS: Abs Immature Grans 0.03 10^3/uL (0.0-0.06); Absolute Basophil Count 0.06 10^3/uL (0.0-0.2); Absolute Eosinophil Count 0.52 10^3/uL (0.0-0.7); Absolute Lymphocyte Count 0.93 10^3/uL (1.2-3.4); Absolute Monocyte Count 0.78 10^3/uL (0.1-0.8); Absolute Neutrophil Count 6.46 10^3/uL (1.2-6.7); Basophils % 0.7 %; Eosinophils % 5.9 %; HCT 32.1 % (40.0-50.0); HGB 10.3 g/dL (13.5-17.5); Immature Grans % 0.3 %; Lymphocytes % 10.6 %; MCH 29.6 pg (27.0-33.0); MCHC 32.1 % (32.0-36.0); MCV 92 fL (80-95); MPV 10.7 fL (8.0-11.0); Monocytes % 8.9 %; Neutrophils % 73.6 %; Platelet Count 185 10^3/uL (130-400); RBC 3.48 10^6/uL (4.36-5.78); RDW 14.8 % (11.8-14.1); RDW-SD 48.6 fL; WBC 8.78 10^3/uL (4.4-10.8)
[2024-06-27 13:53] LABS: ALT 20 U/L (16-63); AST 24 U/L (15-37); Albumin 3.3 g/dL (3.4-5.0); Alkaline Phosphatase 126 U/L (46-116); Anion Gap 6.5 mmol/L (3-11); BUN 43 mg/dL (7-18); Bilirubin, Total 0.38 mg/dL (0.2-1.0); C-Reactive Protein 0.59 mg/dL (<or=0.5); CO2 32.5 mmol/L (21.0-32.0); CREATININE 2.2 mg/dL (0.70-1.30); Calcium 9.4 mg/dL (8.5-10.1); Chloride 97 mmol/L (98-107); Estimated GFR 31.83 (mL/min/1.73m2); Glucose 185 mg/dL (74-106); Potassium 4.5 mmol/L (3.5-5.1); Sodium 136 mmol/L (136-145)
== END 2024-06-27 15:44 | disposition home or self-care (01) ==
LOC: LBN 15:43
PROVIDERS: PCP Nurse Practitioner Family; Visit Provider Internal Medicine Infectious Disease
DX: M86.9 Osteomyelitis, unspecified (principal)
CPT/HCPCS: 80053; 85025; 86140

== ENCOUNTER 2024-07-11 12:22 | Outpatient (REF) | payer MEDICARE, SELFPAY ==
[2024-07-11 17:00] LABS: Abs Immature Grans 0.01 10^3/uL (0.0-0.06); Absolute Basophil Count 0.03 10^3/uL (0.0-0.2); Absolute Eosinophil Count 0.53 10^3/uL (0.0-0.7); Absolute Lymphocyte Count 0.78 10^3/uL (1.2-3.4); Absolute Monocyte Count 0.58 10^3/uL (0.1-0.8); Absolute Neutrophil Count 4.33 10^3/uL (1.2-6.7); Basophils % 0.5 %; Eosinophils % 8.5 %; HCT 33.7 % (40.0-50.0); Immature Grans % 0.2 %; Lymphocytes % 12.5 %; MCH 29.6 pg (27.0-33.0); MCHC 32.6 % (32.0-36.0); MCV 91 fL (80-95); MPV 11.2 fL (8.0-11.0); Monocytes % 9.3 %; Platelet Count 162 10^3/uL (130-400); RBC 3.72 10^6/uL (4.36-5.78); RDW 14.9 % (11.8-14.1); RDW-SD 49.2 fL; WBC 6.26 10^3/uL (4.4-10.8)
[2024-07-11 17:30] LABS: ALT 28 U/L (16-63); AST 23 U/L (15-37); Albumin 3.5 g/dL (3.4-5.0); Alkaline Phosphatase 121 U/L (46-116); Anion Gap 7.7 mmol/L (3-11); BUN 40 mg/dL (7-18); Bilirubin, Total 0.31 mg/dL (0.2-1.0); C-Reactive Protein < 0.50 mg/dL (<or=0.5); CO2 30.3 mmol/L (21.0-32.0); CREATININE 1.7 mg/dL (0.70-1.30); Calcium 9.6 mg/dL (8.5-10.1); Chloride 103 mmol/L (98-107); Estimated GFR 43.37 (mL/min/1.73m2); Glucose 167 mg/dL (74-106); Potassium 4.3 mmol/L (3.5-5.1); Sodium 141 mmol/L (136-145)
== END 2024-07-11 12:23 | disposition home or self-care (01) ==
LOC: LBN 12:22
PROVIDERS: PCP Nurse Practitioner Family; Visit Provider Internal Medicine Infectious Disease
DX: M86.9 Osteomyelitis, unspecified (principal)
CPT/HCPCS: 80053; 85025; 86140

== ENCOUNTER 2024-07-18 19:08 | Outpatient (REF) | payer MEDICARE, SELFPAY ==
[2024-07-18 13:36] LABS: Abs Immature Grans 0.01 10^3/uL (0.0-0.06); Absolute Basophil Count 0.03 10^3/uL (0.0-0.2); Absolute Eosinophil Count 0.34 10^3/uL (0.0-0.7); Absolute Lymphocyte Count 0.87 10^3/uL (1.2-3.4); Absolute Monocyte Count 0.66 10^3/uL (0.1-0.8); Absolute Neutrophil Count 5.65 10^3/uL (1.2-6.7); Basophils % 0.4 %; Eosinophils % 4.5 %; HGB 11.1 g/dL (13.5-17.5); Immature Grans % 0.1 %; Lymphocytes % 11.5 %; MCH 29.3 pg (27.0-33.0); MCHC 32.6 % (32.0-36.0); MCV 90 fL (80-95); MPV 11.2 fL (8.0-11.0); Monocytes % 8.7 %; Neutrophils % 74.8 %; Platelet Count 135 10^3/uL (130-400); RBC 3.79 10^6/uL (4.36-5.78); RDW-SD 48.6 fL; WBC 7.56 10^3/uL (4.4-10.8)
[2024-07-18 13:53] LABS: ALT 19 U/L (16-63); AST 24 U/L (15-37); Albumin 3.7 g/dL (3.4-5.0); Alkaline Phosphatase 118 U/L (46-116); Anion Gap 6.5 mmol/L (3-11); BUN 34 mg/dL (7-18); Bilirubin, Total 0.43 mg/dL (0.2-1.0); C-Reactive Protein < 0.50 mg/dL (<or=0.5); CO2 31.5 mmol/L (21.0-32.0); CREATININE 1.5 mg/dL (0.70-1.30); Calcium 9.7 mg/dL (8.5-10.1); Chloride 101 mmol/L (98-107); Glucose 143 mg/dL (74-106); Potassium 4.5 mmol/L (3.5-5.1); Sodium 139 mmol/L (136-145); Total Protein 7.2 g/dL (6.4-8.2)
== END 2024-07-18 19:09 | disposition home or self-care (01) ==
LOC: LBN 19:08
PROVIDERS: PCP Nurse Practitioner Family; Visit Provider Internal Medicine Infectious Disease
DX: Z79.2 Long term (current) use of antibiotics (principal); T87.43 Infection of amputation stump, right lower extremity
CPT/HCPCS: 80053; 85025; 86140

== ENCOUNTER 2024-07-25 21:38 | Outpatient (REF) | payer MEDICARE, SELFPAY ==
[2024-07-25 16:04] LABS: Abs Immature Grans 0.01 10^3/uL (0.0-0.06); Absolute Basophil Count 0.05 10^3/uL (0.0-0.2); Absolute Eosinophil Count 0.35 10^3/uL (0.0-0.7); Absolute Lymphocyte Count 0.78 10^3/uL (1.2-3.4); Absolute Monocyte Count 0.72 10^3/uL (0.1-0.8); Absolute Neutrophil Count 5.66 10^3/uL (1.2-6.7); Basophils % 0.7 %; Eosinophils % 4.6 %; HCT 33.5 % (40.0-50.0); HGB 10.8 g/dL (13.5-17.5); Immature Grans % 0.1 %; Lymphocytes % 10.3 %; MCH 29.6 pg (27.0-33.0); MCHC 32.2 % (32.0-36.0); MCV 92 fL (80-95); MPV 11.1 fL (8.0-11.0); Monocytes % 9.5 %; Neutrophils % 74.8 %; Platelet Count 142 10^3/uL (130-400); RBC 3.65 10^6/uL (4.36-5.78); RDW 15.1 % (11.8-14.1); RDW-SD 50.3 fL; WBC 7.57 10^3/uL (4.4-10.8)
[2024-07-25 16:55] LABS: ALT 16 U/L (16-63); AST 20 U/L (15-37); Albumin 3.6 g/dL (3.4-5.0); Alkaline Phosphatase 114 U/L (46-116); Anion Gap 7.7 mmol/L (3-11); BUN 37 mg/dL (7-18); Bilirubin, Total 0.31 mg/dL (0.2-1.0); C-Reactive Protein 0.51 mg/dL (<or=0.5); CO2 31.3 mmol/L (21.0-32.0); CREATININE 1.9 mg/dL (0.70-1.30); Calcium 9.3 mg/dL (8.5-10.1); Chloride 102 mmol/L (98-107); Estimated GFR 37.95 (mL/min/1.73m2); Glucose 59 mg/dL (74-106); Potassium 4.4 mmol/L (3.5-5.1); Sodium 141 mmol/L (136-145); Total Protein 6.9 g/dL (6.4-8.2)
== END 2024-07-25 21:39 | disposition home or self-care (01) ==
LOC: LBN 21:38
PROVIDERS: PCP Nurse Practitioner Family; Visit Provider Internal Medicine Infectious Disease
DX: Z79.2 Long term (current) use of antibiotics (principal)
CPT/HCPCS: 80053; 85025; 86140

== ENCOUNTER 2024-10-14 18:28 | Emergency (ER) | payer MEDICARE, SELFPAY ==
[2024-10-14 18:42] VITALS: BP 166/71; PULSE 62; RESP 18; TEMP 36.6; O2SAT 96
[2024-10-14] MEDS: Bacitracin 1 PACKET (20:36)
[2024-10-14 20:52] VITALS: BP 178/80; PULSE 58; RESP 18; O2SAT 96
--- NOTE | 2024-10-16 16:43 | ED.GENADUL_ITS ---
Discharge Plan Disposition Patient Disposition: Home Condition: Stable Discharge Details Clinical Impression: Superficial frostbite Primary Care Provider: Jarrod Schultz ED Provider: Mindy Trejo Home Meds and New Rx's Prescriptions: Continued nitroglycerin 0.4 mg tablet, sublingual 0.4 mg SL Q5-15M PRN (Reason: chest pain) Qty: 25 0RF allopurinol 100 mg tablet 400 mg PO DAILY ezetimibe 10 mg tablet 10 mg PO DAILY Patient Comments: TAKE ONE TABLET BY MOUTH EVERY DAY (DME) diabetic shoes See Rx Instructions .Route .MEDSUPPLY Qty: 2 0RF Rx Instructions: As directed losartan 25 mg tablet 25 mg PO DAILY Patient Comments: TAKE ONE TABLET BY MOUTH EVERY DAY clopidogrel 75 mg tablet 75 mg PO DAILY Qty: 90 3RF insulin glargine [Basaglar KwikPen U-100 Insulin] 100 unit/mL (3 mL) insulin pen 40 unit subcut BID Qty: 90 3RF triamcinolone acetonide 0.5 % ointment 1 applic Topical BID PRN (Reason: dermatitis) Qty: 15 3RF cholecalciferol (vitamin D3) 50 mcg (2,000 unit) capsule 50 mcg PO DAILY (DME) FreeStyle Alfredo 2 Sensor Kit See Rx Instructions .ROUTE .MEDSUPPLY Qty: 2 6RF Rx Instructions: As directed carvedilol 12.5 mg tablet 6.25 mg .ROUTE BID Rx Instructions: 6.25 mg twice a day; pregabalin 200 mg capsule 150 mg PO BID furosemide 40 mg tablet 40 mg PO DAILY (DME) BD Insulin Syringe 1 EACH syringe 1 ea Sub-Q QID Qty: 3 Rx Instructions: B/D INSULIN ULTRA-FINE 30GX0.3/ (DME) Aerochamber Plus Flow-Vu 1 EACH spacer 1 ea Miscellaneous PRN Qty: 1 0RF (DME) blood-glucose meter [FreeStyle Lite Meter] 1 EACH kit 1 ea Miscellaneous TID Qty: 1 0RF (DME) FreeStyle Lite Strips Strip 1 ea Miscellaneous QID Qty: 400 6RF Rx Instructions: 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 E11.42 (DME) FreeStyle Alfredo 2 [place] Misc See Rx Instructions .ROUTE .MEDSUPPLY Qty: 1 0RF Rx Instructions: As directed (DME) BD Regular [place]vel [place] 21 gauge x 1 1/2 needle 1 ea Miscellaneous QID Qty: 100 6RF Rx Instructions: BD U100 29g 1/2 with safety lock insulin syringes Dx E11.49 ferrous sulfate 325 mg (65 mg iron) tablet 325 mg PO DAILY Qty: 90 3RF fluticasone propionate [Flonase Allergy Relief] 50 mcg/actuation spray,suspension 1 spray intranasal DAILY PRN (Reason: nasal congestion) Qty: 16 3RF Rx Instructions: administer into each nostril amlodipine 10 mg tablet 10 mg PO DAILY Lactobacillus acidophilus Capsule 10 mg PO DAILY (DME) pen needle, diabetic [BD Ultra-Fine Short Pen Needle] 31 gauge x 5/16 needle See Rx Instructions .ROUTE .COMPLEX Qty: 100 4RF Dose Instruction: CHECK BLOOD SUGAR FOUR TIMES A DAY Rx Instructions: CHECK BLOOD SUGAR FOUR TIMES A DAY Humulin R U-500 (Conc) Kwikpen 500 unit/mL (3 mL) insulin pen 90 unit subcut QACBREAK Qty: 47 3RF acetaminophen 325 mg tablet 650 mg PO Q6H PRN alteplase 2 mg recon soln 2 mg intra-catheter ONCE PRN Rx Instructions: into each catheter lumen sennosides [senna] 8.6 mg tablet 8.6 mg PO BID Rx Instructions: [facility] #60 no refills sertraline 50 mg tablet 50 mg PO DAILY Qty: 90 3RF rosuvastatin 40 mg tablet See Rx Instructions .ROUTE .COMPLEX Qty: 90 3RF Dose Instruction: TAKE ONE TABLET BY MOUTH EVERY DAY AT BEDTIME Rx Instructions: TAKE ONE TABLET BY MOUTH EVERY DAY AT BEDTIME dapagliflozin propanediol 10 mg tablet 10 mg PO DAILY Qty: 90 3RF gabapentin 300 mg capsule 300 mg PO TID Qty: 270 3RF hydrocodone-acetaminophen 7.5-325 mg tablet 1 tab PO BID MDD 2 tabs PRN (Reason: back pain) Qty: 56 0RF docusate sodium 100 mg Capsule 100 mg PO BID Qty: 60 0RF Discharge Instructions Instructions: Frostbite (DC) Additional Instructions: Keep wound clean and dry, apply bacitracin topically when you change your dressing, you may leave these dressings on for 48 hours Monitor for signs of infection including redness, swelling, discharge, worsening pain Have vascular take a peek at them on Thursday when you have your appointment please return earlier should you have new or worsening complaints Referrals: Jarrod Schultz NP [Primary Care Provider] - 3 days Discharge Data Discharge Date/Time-TO BE ENTERED AT DEPARTURE: 10/14/24 20:52 HPI General Date/Time Provider Initiated Documentation: 10/14/24 18:49 . HPI Narrative: This 69-year-old male presents with report of frostbite to hands while working on tractor outside on Thursday. Noticed blisters forming on and was washing dishes had some discomfort. Today he states that they were blue in coloration which concerned him. [facility] and was sent here for assessment. Patient is on Plavix denies any additional injuries and does report sensation to the affected areas. Tetanus is up-to-date per patient as he received a just prior to arrival. Related Data Home Medications ?Medication ?Instructions ?Recorded ?Confirmed insulin syringe-needle U-100 1 mL ##3 10/14/16 10/14/24 26 x 1/2 (BD Insulin Syringe) inhalational spacing device #1 unit 03/15/18 10/14/24 (Aerochamber Plus Flow-Vu) blood-glucose meter (FreeStyle ##1 05/21/18 10/14/24 Lite Meter kit) blood sugar diagnostic (FreeStyle #400 strips 09/15/19 10/14/24 Lite Strips) flash glucose scanning reader #1 ea 04/09/21 10/14/24 (FreeStyle Alfredo 2 [place]) needle (disp) 21 G 21 gauge x 1 #100 ea 04/12/21 10/14/24 1/2 (BD Regular Bevel [place]) nitroglycerin 0.4 mg sublingual 0.4 mg sublingual Q5-15M PRN chest 02/17/23 10/14/24 tablet pain #25 tabs docusate sodium 100 mg capsule 100 mg PO BID #60 caps 02/27/23 10/14/24 ferrous sulfate 325 mg (65 mg 325 mg PO DAILY #90 tabs 06/11/23 10/14/24 iron) tablet cholecalciferol (vitamin D3) 50 50 mcg PO DAILY 07/01/23 10/14/24 mcg (2,000 unit) capsule flash glucose sensor (FreeStyle #2 ea 09/25/23 10/14/24 Alfredo 2 Sensor kit) fluticasone propionate 50 1 spray intranasal DAILY PRN nasal 01/18/24 10/14/24 mcg/actuation nasal congestion #16 grams spray,suspension (Flonase Allergy Relief) diabetic shoes #2 ea 02/02/24 10/14/24 ezetimibe 10 mg tablet 10 mg PO DAILY 02/02/24 10/14/24 Lactobacillus acidophilus 10 mg PO DAILY 04/20/24 10/14/24 amlodipine 10 mg tablet 10 mg PO DAILY 04/20/24 10/14/24 carvedilol 12.5 mg tablet 6.25 mg .Route BID 04/29/24 10/14/24 furosemide 40 mg tablet 40 mg PO DAILY 04/29/24 10/14/24 pregabalin 200 mg capsule 150 mg PO BID 04/29/24 10/14/24 allopurinol 100 mg tablet 400 mg PO DAILY 05/16/24 10/14/24 losartan 25 mg tablet 25 mg PO DAILY 05/16/24 10/14/24 pen needle, diabetic 31 gauge x #100 ea 05/16/24 10/14/2402/10 (BD Ultra-Fine Short Pen Needle) insulin regular hum U-500 conc 500 90 unit (0.18 mL) subcut QACBREAK 05/25/24 10/14/24 unit/mL(3 mL) subcut pen (Humulin #47 mL R U-500 (Conc) Insulin Kwikpen) acetaminophen 325 mg tablet 650 mg PO Q6H PRN 06/21/24 10/14/24 alteplase 2 mg intra-catheter 2 mg intra-catheter ONCE PRN 06/21/24 10/14/24 solution sennosides 8.6 mg tablet (senna) 8.6 mg PO BID 06/21/24 10/14/24 sertraline 50 mg tablet 50 mg PO DAILY #90 tabs 06/22/24 10/14/24 rosuvastatin 40 mg tablet See Rx Instructions .Route 07/13/24 10/14/24 .COMPLEX #90 tabs dapagliflozin propanediol 10 mg 10 mg PO DAILY #90 tabs 07/14/24 10/14/24 tablet clopidogrel 75 mg tablet 75 mg PO DAILY #90 tabs 07/28/24 10/14/24 insulin glargine 100 unit/mL (3 40 unit (0.4 mL) subcut BID #90 mL 07/28/24 10/14/24 mL) subcutaneous pen (Basaglar KwikPen U-100 Insulin) triamcinolone acetonide 0.5 % 1 applic topical BID PRN 07/28/24 10/14/24 topical ointment dermatitis #15 grams gabapentin 300 mg capsule 300 mg PO TID #270 caps 09/07/24 10/14/24 hydrocodone 7.5 mg-acetaminophen 1 tab PO BID PRN back pain #56 tabs 09/15/24 10/14/24 325 mg tablet Previous Rx's ?Medication ?Instructions ?Recorded inhalational spacing device #1 unit 03/15/18 (Aerochamber Plus Flow-Vu) blood-glucose meter (FreeStyle ##1 05/21/18 Lite Meter kit) blood sugar diagnostic (FreeStyle #400 strips 09/15/19 Lite Strips) flash glucose scanning reader #1 ea 04/09/21 (FreeStyle Alfredo 2 [place]) needle (disp) 21 G 21 gauge x 1 #100 ea 04/12/21 1/2 (BD Regular Bevel [place]) nitroglycerin 0.4 mg sublingual 0.4 mg sublingual Q5-15M PRN chest 02/17/23 tablet pain #25 tabs docusate sodium 100 mg capsule 100 mg PO BID #60 caps 02/27/23 ferrous sulfate 325 mg (65 mg 325 mg PO DAILY #90 tabs 06/11/23 iron) tablet flash glucose sensor (FreeStyle #2 ea 09/25/23 Alfredo 2 Sensor kit) fluticasone propionate 50 1 spray intranasal DAILY PRN nasal 01/18/24 mcg/actuation nasal congestion #16 grams spray,suspension (Flonase Allergy Relief) diabetic shoes #2 ea 02/02/24 pen needle, diabetic 31 gauge x #100 ea 05/16/24/ (BD Ultra-Fine Short Pen Needle) insulin regular hum U-500 conc 500 90 unit (0.18 mL) subcut QACBREAK 05/25/24 unit/mL(3 mL) subcut pen (Humulin #47 mL R U-500 (Conc) Insulin Kwikpen) sertraline 50 mg tablet 50 mg PO DAILY #90 tabs 06/22/24 rosuvastatin 40 mg tablet See Rx Instructions .Route 07/13/24 .COMPLEX #90 tabs dapagliflozin propanediol 10 mg 10 mg PO DAILY #90 tabs 07/14/24 tablet clopidogrel 75 mg tablet 75 mg PO DAILY #90 tabs 07/28/24 insulin glargine 100 unit/mL (3 40 unit (0.4 mL) subcut BID #90 mL 07/28/24 mL) subcutaneous pen (Basaglar KwikPen U-100 Insulin) triamcinolone acetonide 0.5 % 1 applic topical BID PRN 07/28/24 topical ointment dermatitis #15 grams gabapentin 300 mg capsule 300 mg PO TID #270 caps 09/07/24 hydrocodone 7.5 mg-acetaminophen 1 tab PO BID PRN back pain #56 tabs 09/15/24 325 mg tablet Allergies Allergy/AdvReac Type Severity Reaction Status Date / Time cephalexin monohydrate (From Allergy Severe SOB Verified 10/14/24 18:48 Keflex) Penicillins Allergy Unknown Skin Rash Verified 10/14/24 18:48 General Stated Complaint: ColdExpose MIRIAM: 4 Exam Narrative Exam Narrative: Blister noted to right second digit on palmar aspect of second digit at distal phalanx, blister noted to left fourth digit at distal aspect of digit and fourth finger, larger blister all her on second digit index finger along palmar aspect right hand, cap refill intact, sensation intact, range of motion intact. Course Vital Signs Vital signs: Vital Signs Temperature 36.6 C 10/14/24 18:42 Pulse 62 10/14/24 18:42 Respiratory Rate 18 10/14/24 18:42 Blood Pressure 166/71 H 10/14/24 18:42 Pulse Oximetry 96 10/14/24 18:42 Temperature 36.6 C 10/14/24 18:42 Temperature Source Oral 10/14/24 18:42 Pulse 58 L 10/14/24 20:52 Respiratory Rate 18 10/14/24 20:52 Respiratory Effort Normal, Non-Labored 10/14/24 19:03 Respiratory Depth Normal 10/14/24 19:03 Respiratory Pattern Normal 10/14/24 19:03 Blood Pressure 178/80 H 10/14/24 20:52 Blood Pressure Position Sitting 10/14/24 18:42 Pulse Oximetry 96 10/14/24 20:52 Oxygen Delivery Method Room Air 10/14/24 18:42 Oxygen Flow Rate 0 10/14/24 18:42 Pain Level 4 10/14/24 19:03 Medical Decision Making This is a 69-year-old male presents with superficial classmate post cold exposure 2 days prior to arrival. Denies any additional injuries or complaints. Tetanus reportedly up-to-date. Case was quickly discussed with plastic surgery resident at [facility], does not feel like these are hemorrhagic blisters. Patient had drainage of blisters with bacitracin and burn dressings applied. His tetanus is up-to-date, he has great cap refill and is neurovascularly intact. He is encouraged to follow-up with his primary care physician this week and return earlier with new or worsening complaints, discharged home in stable condition with stable vitals Quality:SDOH Health Related Social Needs: No Data to Display [facility] All Active Problems (Updated 10/14/24 @ 20:44 by HERBIE Balderrama) Superficial frostbite (Acute) MSSA (methicillin susceptible Staphylococcus aureus) infection (Acute ~06/16/24) RT foot s/p amputation Amputation of toe of right foot (Acute ~06/13/24) [facility]- 2nd toe History of transmetatarsal amputation of right foot (Acute ~06/16/24) [facility]- open, completion transmetatarsal amputation of right forefoot (digits 3,4,5) Bilateral lower extremity edema (Acute) Hearing loss (Acute) Gangrene of toe of right foot (Acute) Ischemic ulcer of right foot with fat layer exposed (Acute) Osteomyelitis of right foot (Acute) Diabetes mellitus with foot ulcer due to multiple causes (Acute) Gallstones without obstruction of gallbladder (Acute) BPH (benign prostatic hyperplasia) (Chronic) History of smoking at least 1 pack per day for at least 30 years (Acute) Gouty tophi of hand (Acute) Chronic gouty arthropathy with tophi (Acute) Hyperkalemia (Acute 07/26/14) Hypertension (Chronic) Diabetic peripheral angiopathy (Chronic) Diabetic peripheral neuropathy (Chronic) Chronic pain syndrome (Chronic) low back pain, drug contract at [facility]-V PMS and drug screen on 08/1221-patient on chronic hydrocodone Coronary artery disease involving [place] coronary artery of [place] heart with unstable angina pectoris (Chronic 08/30/17) 08-24-2017 [facility] cardiac CATH: 3 vessel disease (LAD,LCx and RCA): coronary bypass sx pending Dyspnea on exertion (Chronic 12/16/13) negative nuclear stress test echocardiogram: normal/ EF 65%/no valvulopathy Cardiol.eval. : not ischemia related ([facility]) Hyperlipidemia (Chronic) Peripheral autonomic neuropathy in disorders classified elsewhere (Chronic 09/15/14) Right heart failure (Acute) Cellulitis of foot, right (Acute) Hand arthritis (Acute) Chronic kidney disease (CKD) (Chronic) 08/2021- Cr 1.7 Diabetes mellitus type 2, insulin dependent (Acute) with nephropathy Obesity (Chronic) Gout (Chronic) 08/2021-diagnosed by rheumatology at [facility]-probable gout tophi of hands Edema (Acute) Diabetic retinopathy (Acute ~12/2021) B/L MODERATE-01/17 Leg wound, left (Acute) Diabetic foot infection (Acute) Cellulitis (Acute) Chronic foot ulcer (Acute) Nail dystrophy (Acute) Peripheral arterial disease (Acute) Acute Lyme disease (Acute) Elevated troponin (Acute) Erythema migrans (Lyme disease) (Acute) Gram-positive cocci bacteremia (Acute) Acute kidney injury superimposed on chronic kidney disease (Acute) Staphylococcus aureus bacteremia (Acute) Gouty arthritis of hand (Acute) Chronic acquired lymphedema (Acute) Bilateral lower extremities Chronic venous stasis dermatitis (Acute) Bilateral lower extremities Chronic venous insufficiency of lower extremity (Acute) Bilateral lower extremities Diabetic ulcer of toe of left foot (Acute) Diabetic ulcer of right foot associated with diabetes mellitus due to underlying condition (Acute) Obesity, morbid, BMI 40.0-49.9 (Acute) Lightheadedness (Acute) Weakness (Acute) Ulcer of left foot with bone involvement without evidence of necrosis (Acute) Hyponatremia (Acute) Chronic ulcer of left foot (Acute) Pancytopenia (Acute) Iron deficiency anemia (Acute) Medical History Palliative care encounter Toe osteomyelitis, right s/p amputation. Pseudomonas osteomyelitis 6wk IV Ceftazidime per ID Amputation of toe Congestive heart failure TIA (transient ischemic attack) Proliferative diabetic retinopathy of both eyes without macular edema associated with diabetes mellitus due to underlying condition (01/18/18) 01/18/18-[facility] 01/31/19-[facility] Stroke (~2009) Obesity DM (diabetes mellitus) Laceration of lower leg with foreign body Diabetic foot ulcer Lymphedema Scrotal hematoma (07/26/14) A. S/p hydrocelectomy 07/24/14 Surgical History 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 secondary to diabetic ulcer, angiopathy S/P femoral-popliteal bypass surgery right. 03/2020 History of cataract removal with insertion of prosthetic lens History of hydrocelectomy (07/24/14) right S/P CABG x 3 (08/30/17) [facility] 08-29-2017 : no fup needed H/O surgical procedure A. Hydrocelectomy 07/24/2014 Family History Mother No problems noted. Father Diabetes Myocardial infarction Heart disease Sister Diabetes Social History Smoking/Tobacco Use Status: Former Tobacco Use Quit Date: 09/28/83 Tobacco: How many years used: 5 Smoking risk assessment performed?: Yes Alcohol Intake: current Alcohol Intake frequency: holidays/special occasions only Drug use: Occasionally Substance use type: marijuana Housing: house Pets and animals: Yes Pets and animals: cat(s) and dog(s) What type of physical activity do you participate in: none Do you feel safe at home: Yes Do you feel safe in your relationship?: Yes
== END 2024-10-14 20:52 | disposition home or self-care (01) ==
PROVIDERS: Emergency Provider Physician Assistant; PCP Nurse Practitioner Family
DX: T33.522A Superficial frostbite of left hand, initial encounter (principal); T33.521A Superficial frostbite of right hand, initial encounter
CPT/HCPCS: 99283

== ENCOUNTER → 2025-02-01 13:24 | Outpatient (BNVA) | payer MEDICARE, SELFPAY | PROVIDERS: PCP Nurse Practitioner Family; Referring Provider Nurse Practitioner Family; Visit Provider Podiatrist | DX: E11.8 Type 2 diabetes mellitus with unspecified complications (principal); L97.512 Non-pressure chronic ulcer of other part of right foot with fat layer exposed; L03.115 Cellulitis of right lower limb; M86.9 Osteomyelitis, unspecified; I87.2 Venous insufficiency (chronic) (peripheral); N17.9 Acute kidney failure, unspecified; N18.9 Chronic kidney disease, unspecified; I73.89 Other specified peripheral vascular diseases; Z79.4 Long term (current) use of insulin; S98.131A Complete traumatic amputation of one right lesser toe, initial encounter; E66.01 Morbid (severe) obesity due to excess calories; Z68.41 Body mass index [BMI] 40.0-44.9, adult; Z89.431 Acquired absence of right foot; R09.89 Other specified symptoms and signs involving the circulatory and respiratory systems; R60.0 Localized edema; L65.9 Nonscarring hair loss, unspecified; R20.8 Other disturbances of skin sensation; L60.2 Onychogryphosis; L85.8 Other specified epidermal thickening | CPT/HCPCS: 11720 ==

== ENCOUNTER 2025-07-06 15:06 | Outpatient (CLI) | payer MEDICARE, SELFPAY ==
--- NOTE | 2025-07-06 15:00 | RT.EKG_ITS ---
APPROVED REPORT Exam: Resting ECG Reason for Exam: nausea Patient Location: O HR:67 bpm ECG Measurements Heart Rate 67 AX[address] [place] [id number] P [id number] QRSd 186 QRS 91 QT 475 T -27 QTc 502 Conclusion Atrial flutter with predominant 3:1 AV block...A-rate 214, multiple Ps Ventricular premature complex...V complex w/ short R-R interval RBBB and LPFB...QRSd >120mS, axis(90,210)
== END 2025-07-06 15:07 | disposition home or self-care (01) ==
LOC: DI.CM 15:07
PROVIDERS: PCP Nurse Practitioner Family; Visit Provider Nurse Practitioner Family
DX: R11.0 Nausea (principal); I51.7 Cardiomegaly
CPT/HCPCS: 93010

== ENCOUNTER 2025-07-06 16:59 | Inpatient (IN) | payer MEDICARE, SELFPAY ==
[2025-07-06] VITALS (53 sets, daily range): BP systolic 96–199; BP diastolic 30–146; PULSE 47–114; RESP 4–25; TEMP 36.8; O2SAT 92–99
--- NOTE | 2025-07-06 17:00 | RT.EKG_ITS ---
APPROVED REPORT Exam: Resting ECG Reason for Exam: Atrial Flutter Patient Location: E HR:68 bpm ECG Measurements Heart Rate 68 AX[address] LA [id number] P [id number] QRSd 182 QRS 94 QT 440 T -36 QTc 470 Conclusion Atrial flutter with predominant 3:1 AV block...A-rate 220, multiple Ps RBBB and LPFB...QRSd >120mS, axis(90,210)
--- NOTE | 2025-07-06 17:09 | W.ED.GENAD ---
Discharge Plan Disposition Patient Disposition: Admit to [facility] Discharge Details Clinical Impression: Hyponatremia, Acute kidney injury superimposed on chronic kidney disease Primary Care Provider: Jarrod Schultz ED Provider: Radha Herbert Meds and New Rx's Prescriptions: No Action ezetimibe 10 mg tablet 10 mg PO DAILY Patient Comments: TAKE ONE TABLET BY MOUTH EVERY DAY (DME) diabetic shoes See Rx Instructions .Route .MEDSUPPLY Qty: 2 0RF Rx Instructions: As directed clopidogrel 75 mg tablet 75 mg PO DAILY Qty: 90 3RF insulin glargine [Basaglar KwikPen U-100 Insulin] 100 unit/mL (3 mL) insulin pen 40 unit subcut BID Qty: 90 3RF allopurinol 300 mg tablet 300 mg PO DAILY Patient Comments: TAKE ONE TABLET BY MOUTH EVERY DAY fluticasone propionate [Flonase Allergy Relief] 50 mcg/actuation spray,suspension 1 spray intranasal DAILY PRN (Reason: nasal congestion) Qty: 16 3RF Rx Instructions: administer into each nostril allopurinol 100 mg tablet 100 mg PO DAILY Qty: 90 3RF amlodipine 10 mg tablet 10 mg PO DAILY Qty: 90 3RF gabapentin 100 mg capsule 200 mg PO TID Qty: 180 5RF furosemide 40 mg tablet 40 mg PO DAILY Qty: 90 3RF losartan 25 mg tablet 25 mg PO DAILY Qty: 90 3RF nitroglycerin 0.4 mg tablet, sublingual 0.4 mg SL Q5-15M PRN (Reason: chest pain) Qty: 25 0RF sertraline 50 mg tablet 50 mg PO DAILY Qty: 90 3RF cholecalciferol (vitamin D3) 50 mcg (2,000 unit) capsule 50 mcg PO DAILY (DME) FreeStyle Alfredo 2 Sensor Kit See Rx Instructions .ROUTE .MEDSUPPLY Qty: 2 6RF Rx Instructions: As directed pregabalin 200 mg capsule 150 mg PO BID carvedilol 6.25 mg tablet 3.125 mg PO DAILY Qty: 90 3RF Rx Instructions: must administer with a meal/food Mounjaro 5 mg/0.5 mL pen injector 5 mg subcut QWEEK (DME) BD Insulin Syringe 1 EACH syringe 1 ea Sub-Q QID Qty: 3 Rx Instructions: B/D INSULIN ULTRA-FINE 30GX0.3/ (DME) Aerochamber Plus Flow-Vu 1 EACH spacer 1 ea Miscellaneous PRN Qty: 1 0RF (DME) blood-glucose meter [FreeStyle Lite Meter] 1 EACH kit 1 ea Miscellaneous TID Qty: 1 0RF (DME) FreeStyle Lite Strips Strip 1 ea Miscellaneous QID Qty: 400 6RF Rx Instructions: 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 E11.42 (DME) FreeStyle Alfredo 2 [place] Misc See Rx Instructions .ROUTE .MEDSUPPLY Qty: 1 0RF Rx Instructions: As directed (DME) BD Regular Bevel [place] 21 gauge x 1 1/2 needle 1 ea Miscellaneous QID Qty: 100 6RF Rx Instructions: BD U100 29g 1/2 with safety lock insulin syringes Dx E11.49 ferrous sulfate 325 mg (65 mg iron) tablet 325 mg PO DAILY Qty: 90 3RF Lactobacillus acidophilus Capsule 10 mg PO DAILY (DME) pen needle, diabetic [BD Ultra-Fine Short Pen Needle] 31 gauge x 5/16 needle See Rx Instructions .ROUTE .COMPLEX Qty: 100 4RF Dose Instruction: CHECK BLOOD SUGAR FOUR TIMES A DAY Rx Instructions: CHECK BLOOD SUGAR FOUR TIMES A DAY acetaminophen 325 mg tablet 650 mg PO Q6H PRN alteplase 2 mg recon soln 2 mg intra-catheter ONCE PRN Rx Instructions: into each catheter lumen rosuvastatin 40 mg tablet See Rx Instructions .ROUTE .COMPLEX Qty: 90 3RF Dose Instruction: TAKE ONE TABLET BY MOUTH EVERY DAY AT BEDTIME Rx Instructions: TAKE ONE TABLET BY MOUTH EVERY DAY AT BEDTIME dapagliflozin propanediol 10 mg tablet 10 mg PO DAILY Qty: 90 3RF triamcinolone acetonide 0.5 % ointment 1 applic Topical BID PRN (Reason: dermatitis) Qty: 15 3RF ketoconazole 2 % cream 1 applic topical DAILY Qty: 120 6RF Rx Instructions: Apply to 1g to skin and toenails once daily Humulin R U-500 (Conc) Kwikpen 500 unit/mL (3 mL) insulin pen 90 unit subcut QACBREAK Qty: 47 3RF hydrocodone-acetaminophen 7.5-325 mg tablet 1 tab PO BID MDD 2 tabs PRN (Reason: back pain) Qty: 56 0RF ondansetron 8 mg tablet,disintegrating 8 mg PO Q8H PRN (Reason: nausea and vomiting) Qty: 20 0RF HPI General Mode of arrival: ambulatory. Date/Time Provider Initiated Documentation: 07/06/25 17:01. Limitations to Documentation: no limitations. Information obtained by: patient, RN notes reviewed and old records reviewed. HPI Narrative: 70 year old male presents to the ER with cc of dizziness, nausea, and vomiting associated with difficulty urinating and RLQ abd pain x 3 days. Sent here from [facility] for further evaluation and treatment. Patient has past medical history of atrial flutter, insulin-dependent diabetes, congestive heart failure, TIA he has had an appendectomy, CABG x 3. Denies any chest pain or shortness of breath denies any productive cough. He denies any blood in his stool. He does not endorse marijuana he is a non-smoker and denies any alcohol. Patient reports a recent change in his carvedilol dosage which has been decreased recently. Related Data Home Medications ?Medication ?Instructions ?Recorded ?Confirmed insulin syringe-needle U-100 1 mL ##3 10/14/16 07/06/25 26 x 1/2 (BD Insulin Syringe) inhalational spacing device #1 unit 03/15/18 07/06/25 (Aerochamber Plus Flow-Vu) blood-glucose meter (FreeStyle ##1 05/21/18 07/06/25 Lite Meter kit) blood sugar diagnostic (FreeStyle #400 strips 09/15/19 07/06/25 Lite Strips) flash glucose scanning reader #1 ea 04/09/21 07/06/25 (FreeStyle Alfredo 2 [place]) needle (disp) 21 G 21 gauge x 1 #100 ea 04/12/21 07/06/25 1/2 (BD Regular Bevel [place]) ferrous sulfate 325 mg (65 mg 325 mg PO DAILY #90 tabs 06/11/23 07/06/25 iron) tablet cholecalciferol (vitamin D3) 50 50 mcg PO DAILY 07/01/23 07/06/25 mcg (2,000 unit) capsule flash glucose sensor (FreeStyle #2 ea 09/25/23 07/06/25 Alfredo 2 Sensor kit) diabetic shoes #2 ea 02/02/24 07/06/25 ezetimibe 10 mg tablet 10 mg PO DAILY 02/02/24 07/06/25 Lactobacillus acidophilus 10 mg PO DAILY 04/20/24 07/06/25 pregabalin 200 mg capsule 150 mg PO BID 04/29/24 07/06/25 pen needle, diabetic 31 gauge x #100 ea 05/16/24 07/06/25 5/16 (BD Ultra-Fine Short Pen Needle) acetaminophen 325 mg tablet 650 mg PO Q6H PRN 06/21/24 07/06/25 alteplase 2 mg intra-catheter 2 mg intra-catheter ONCE PRN 06/21/24 07/06/25 solution rosuvastatin 40 mg tablet See Rx Instructions .Route 07/13/24 07/06/25 .COMPLEX #90 tabs dapagliflozin propanediol 10 mg 10 mg PO DAILY #90 tabs 07/14/24 07/06/25 tablet clopidogrel 75 mg tablet 75 mg PO DAILY #90 tabs 07/28/24 07/06/25 insulin glargine 100 unit/mL (3 40 unit (0.4 mL) subcut BID #90 mL 07/28/24 07/06/25 mL) subcutaneous pen (Basaglar KwikPen U-100 Insulin) allopurinol 300 mg tablet 300 mg PO DAILY 02/01/25 07/06/25 triamcinolone acetonide 0.5 % 1 applic topical BID PRN 03/20/25 07/06/25 topical ointment dermatitis #15 grams allopurinol 100 mg tablet 100 mg PO DAILY #90 tabs 03/23/25 07/06/25 amlodipine 10 mg tablet 10 mg PO DAILY #90 tabs 03/23/25 07/06/25 fluticasone propionate 50 1 spray intranasal DAILY PRN nasal 03/23/25 07/06/25 mcg/actuation nasal congestion #16 grams spray,suspension (Flonase Allergy Relief) furosemide 40 mg tablet 40 mg PO DAILY #90 tabs 03/23/25 07/06/25 gabapentin 100 mg capsule 200 mg (2 x 100 mg) PO TID #180 03/23/25 07/06/25 caps losartan 25 mg tablet 25 mg PO DAILY #90 tabs 03/23/25 07/06/25 nitroglycerin 0.4 mg sublingual 0.4 mg sublingual Q5-15M PRN chest 03/23/25 07/06/25 tablet pain #25 tabs sertraline 50 mg tablet 50 mg PO DAILY #90 tabs 03/23/25 07/06/25 ketoconazole 2 % topical cream 1 applic topical DAILY #120 grams 05/01/25 07/06/25 insulin regular hum U-500 conc 500 90 unit (0.18 mL) subcut QACBREAK 06/09/25 07/06/25 unit/mL(3 mL) subcut pen (Humulin #47 mL R U-500 (Conc) Insulin Kwikpen) hydrocodone 7.5 mg-acetaminophen 1 tab PO BID PRN back pain #56 tabs 06/14/25 07/06/25 325 mg tablet carvedilol 6.25 mg tablet 3.125 mg (1/2 x 6.25 mg) PO DAILY 07/06/25 07/06/25 #90 tabs ondansetron 8 mg disintegrating 8 mg PO Q8H PRN nausea and 07/06/25 07/06/25 tablet vomiting #20 tabs tirzepatide 5 mg/0.5 mL 5 mg subcut QWEEK 07/06/25 07/06/25 subcutaneous pen injector (Sridevi) Previous Rx's ?Medication ?Instructions ?Recorded inhalational spacing device #1 unit 03/15/18 (Aerochamber Plus Flow-Vu) blood-glucose meter (FreeStyle ##1 05/21/18 Lite Meter kit) blood sugar diagnostic (FreeStyle #400 strips 09/15/19 Lite Strips) flash glucose scanning reader #1 ea 04/09/21 (FreeStyle Alfredo 2 [place]) needle (disp) 21 G 21 gauge x 1 #100 ea 04/12/21 1 (BD Regular Bevel [place]) ferrous sulfate 325 mg (65 mg 325 mg PO DAILY #90 tabs 06/11/23 iron) tablet flash glucose sensor (FreeStyle #2 ea 09/25/23 Alfredo 2 Sensor kit) diabetic shoes #2 ea 02/02/24 pen needle, diabetic 31 gauge x #100 ea 05/16/2402/10 (BD Ultra-Fine Short Pen Needle) rosuvastatin 40 mg tablet See Rx Instructions .Route 07/13/24 .COMPLEX #90 tabs dapagliflozin propanediol 10 mg 10 mg PO DAILY #90 tabs 07/14/24 tablet clopidogrel 75 mg tablet 75 mg PO DAILY #90 tabs 07/28/24 insulin glargine 100 unit/mL (3 40 unit (0.4 mL) subcut BID #90 mL 07/28/24 mL) subcutaneous pen (Basaglar KwikPen U-100 Insulin) triamcinolone acetonide 0.5 % 1 applic topical BID PRN 03/20/25 topical ointment dermatitis #15 grams allopurinol 100 mg tablet 100 mg PO DAILY #90 tabs 03/23/25 amlodipine 10 mg tablet 10 mg PO DAILY #90 tabs 03/23/25 fluticasone propionate 50 1 spray intranasal DAILY PRN nasal 03/23/25 mcg/actuation nasal congestion #16 grams spray,suspension (Flonase Allergy Relief) furosemide 40 mg tablet 40 mg PO DAILY #90 tabs 03/23/25 gabapentin 100 mg capsule 200 mg (2 x 100 mg) PO TID #180 03/23/25 caps losartan 25 mg tablet 25 mg PO DAILY #90 tabs 03/23/25 nitroglycerin 0.4 mg sublingual 0.4 mg sublingual Q5-15M PRN chest 03/23/25 tablet pain #25 tabs sertraline 50 mg tablet 50 mg PO DAILY #90 tabs 03/23/25 ketoconazole 2 % topical cream 1 applic topical DAILY #120 grams 05/01/25 insulin regular hum U-500 conc 500 90 unit (0.18 mL) subcut QACBREAK 06/09/25 unit/mL(3 mL) subcut pen (Humulin #47 mL R U-500 (Conc) Insulin Kwikpen) hydrocodone 7.5 mg-acetaminophen 1 tab PO BID PRN back pain #56 tabs 06/14/25 325 mg tablet carvedilol 6.25 mg tablet 3.125 mg (1/2 x 6.25 mg) PO DAILY 07/06/25 #90 tabs ondansetron 8 mg disintegrating 8 mg PO Q8H PRN nausea and 07/06/25 tablet vomiting #20 tabs Allergies Allergy/AdvReac Type Severity Reaction Status Date / Time cephalexin monohydrate (From Allergy Severe SOB Verified 07/06/25 17:09 Keflex) Penicillins Allergy Unknown Skin Rash Verified 07/06/25 17:09 General Stated Complaint: Nausea/Vomit/Diar MIRIAM: 3 Review of Systems All systems reviewed & are unremarkable except as noted in HPI and below ENT Ears, Nose, Mouth, and Throat: Reports dizziness Gastrointestinal Gastrointestinal: Reports abdominal pain, Reports nausea and Reports vomiting Neurologic Neurologic: Reports dizziness Exam Narrative Exam Narrative: Constitutional: Alert and oriented x3. Appears stated age. Obese body habitus. Head: Normocephalic, no trauma. Eyes: Pupils PERRL, Red reflex noted, EOM's intact. Eyelids symmetrical without lesions, discharge, or swelling. ENT: Bilateral TM's WNL, External ear normal to inspection, no mastoid TTP, swelling, or erythema, Nasal turbinates WNL, no nasal discharge. Normal dentition, Posterior pharynx WNL, no exudate. Chest: RRR, Normal S1, S2, distal pulses intact. Resp: Lungs clear to auscultation bilaterally, no wheezes, rales, or rhonchi. Abdomen: Soft, non-distended, Normoactive bowel sounds all 4 quads. Umbilical hernia noted. Musculoskeletal: Normal gait, Moves all 4 extremities without difficulty. Skin: No suspicious rashes or lesions. Capillary refill less than 2 sec. Neurologic: Cranial nerves II-XII intact. Alert and oriented x 3. Motor: No deficits noted. Sensory: Intact bilaterally all 4 extremities. Hematologic/Lymphatic: No ecchymosis, no lymphadenopathy. Course Vital Signs Vital signs: Vital Signs Pulse 69 07/06/25 16:59 Respiratory Rate 16 07/06/25 16:59 Blood Pressure 118/61 07/06/25 16:59 Pulse Oximetry 96 07/06/25 16:59 Pulse 69 07/06/25 17:08 Respiratory Rate 16 07/06/25 17:08 Blood Pressure 118/61 07/06/25 17:08 Blood Pressure Position Sitting 07/06/25 16:59 Pulse Oximetry 96 07/06/25 17:08 Oxygen Delivery Method Room Air 07/06/25 16:59 Oxygen Flow Rate 0 07/06/25 16:59 Medical Decision Making 70 year old male presents to the ER with cc of dizziness, nausea, and vomiting associated with difficulty urinating and RLQ abd pain x 3 days. Sent here from [facility] for further evaluation and treatment. Patient has past medical history of atrial flutter, insulin-dependent diabetes, congestive heart failure, TIA he has had an appendectomy, CABG x 3. Denies any chest pain or shortness of breath denies any productive cough. He denies any blood in his stool. He does not endorse marijuana he is a non-smoker and denies any alcohol. Patient reports a recent change in his carvedilol dosage which has been decreased recently. EKG was reviewed by Dr. Sabillon he ER attending, only EKG available for review. Shows a right bundle branch block and left fascicular block, PVCs. See official report. Workup ordered including CBC CMP serial troponins, proBNP, PT PTT chest x-ray and CT abdomen pelvis. Will give 4 mg of Zofran and fluids. Critical results received from the lab sodium 122 potassium 4.0 BUN 78 creatinine 5.9 GFR is 9 glucose 188, initial troponin is elevated at 469, proBNP is 30,543. CT abdomen pelvis changed to without contrast. 1858: Spoke with Radiologist, reports multiple gallstones, enlarged prostate and bladder wall thickening. Repeat BMP ordered after a liter of normal saline. Patient was inadvertently given a liter although 150 an hour was ordered. Sodium has increased to 124 from 122, BUN 79 creatinine 5.7 which is down from 5.9. GFR is 10 calcium 8.2. Urinalysis is pending at this time. Will page hospitalist regarding hyponatremia and request admission. It does appear elevated troponin in past and patient has no c/o chest pain. 2004: Spoke with Dr. Farooq regarding patient case and details, he agrees to accept patient for admission, recommends a White and Blood cultures. Orders placed. 3 gm Fosphomycin PO ordered. This text was generated using [employer] dictation system, please disregard any oddities of phrase or misspellings. Medical Records Medical records reviewed: Yes I reviewed the patient's medical records. Imaging Data Radiologic Study: Imaging: CT Scan Radiologist's impression: IMPRESSION: 1. There are multiple gallstones measuring up to 7 mm size. Most are at level of gallbladder neck but there are 2 calculi within the cystic duct. The gallbladder is mildly distended but does not appear edematous. The CBD is not dilated. There are no dilated intrahepatic ducts. Recommend follow-up ultrasound 2. No evidence of acute appendicitis nor acute diverticulitis. 3. No evidence of significant renal calculi nor obstruction of the urinary tracts. 4. The urinary bladder wall is diffusely thickened. Suspect that this may be related to significantly enlarged prostate gland here. Nevertheless, cannot exclude chronic cystitis. There are no bladder diverticuli. Other findings as above. Report called by myself to ER provider 07/06/2025 at 6:57 p.m. Lab Data Lab results reviewed: Yes I reviewed the patient's lab results. Labs: 07/06/25 20:07 Blood Blood Culture - Pending 07/06/25 20:07 Blood Blood Culture - Pending 07/06/25 19:34 Urine - Reflex from Ua Urine Culture - Pending Laboratory Tests Range/Units 07/06/25 07/06/25 07/06/25 17:28 18:55 19:34 WBC (4.4-10.8) 10^3/uL 14.49 H RBC (4.36-5.78) 10^6/uL 4.10 L Hgb (13.5-17.5) g/dL 12.6 L Hct (40.0-50.0) % 35.7 L MCV (80-95) fL 87 MCH (27.0-33.0) pg 30.7 MCHC (32.0-36.0) % 35.3 RDW (11.8-14.1) % 13.0 Plt Count (130-400) 10^3/uL 157 MPV (8.0-11.0) fL 10.4 Immature Gran % % 0.6 Neutrophils % % 88.5 Lymphocytes % % 1.5 Monocytes % % 8.6 Eosinophils % % 0.6 Basophils % % 0.2 Nucleated RBC % (0.0-0.3) % 0.0 Absolute Neutrophils (1.2-6.7) 10^3/uL 12.82 H Absolute Lymphocytes (1.2-3.4) 10^3/uL 0.22 L Absolute Monocytes (0.1-0.8) 10^3/uL 1.25 H Absolute Eosinophils (0.0-0.7) 10^3/uL 0.09 Absolute Basophils (0.0-0.2) 10^3/uL 0.03 PT (9.1-11.1) sec 10.2 INR (0.9-1.1) 1.0 Sodium (136-145) mmol/L 122 L* 124 L* Potassium (3.5-5.1) mmol/L 4.0 4.0 Chloride (98-107) mmol/L 83 L 86 L Carbon Dioxide (21.0-32.0) mmol/L 26.4 26.9 Anion Gap (3-11) mmol/L 12.6 H 11.1 H BUN (7-18) mg/dL 78 H 79 H Creatinine (0.70-1.30) mg/dL 5.9 H* 5.7 H* Est GFR (CKD-EPI 2020) (mL/min/1.73m2) 9.68 10.09 Glucose (74-106) mg/dL 188 H 166 H Calcium (8.5-10.1) mg/dL 8.6 8.2 L Magnesium (1.8-2.4) mg/dL 2.2 Total Bilirubin (0.2-1.0) mg/dL 0.7 AST (15-37) U/L 42 H ALT (16-63) U/L 43 Alkaline Phosphatase (46-116) U/L 163 H Troponin I (<or=76) ng/L 469 H* 430 H* NT-Pro-B Natriuret Pep (<300) pg/mL 70773 H Total Protein (6.4-8.2) g/dL 6.8 Albumin (3.4-5.0) g/dL 2.8 L Urine Color (Yellow) Yellow Urine Clarity (Clear) Sl Cloudy Urine pH (5-8) 5.0 Ur Specific [place] (1.005-1.025) 1.010 Urine Protein (Neg-Trace) mg/dL 100 H Urine Ketones (Negative) mg/dL Negative Urine Blood (Negative) Moderate H Urine Nitrite (Negative) Negative Urine Bilirubin (Negative) Negative Urine Urobilinogen (Up to 0.2) mg/dL 0.2 Ur Leukocyte Esterase (Negative) Small H Urine RBC Not Applicable Urine WBC (0-5) HPF >50 H Ur Epithelial Cells Not Applicable Urine Crystals Not Applicable Urine Bacteria Not Applicable Urine Mucus Not Applicable Ur Culture Indicated? Yes Urine Glucose (Negative) mg/dL 500 H PFSH All Active Problems (Updated 07/06/25 @ 21:53 by Chauncey Gil) Abdominal pain (Acute) Cholelithiasis (Chronic) UTI (urinary tract infection) (Acute) Acute kidney injury superimposed on chronic kidney disease (Acute) Hyponatremia (Acute) Atrial flutter (Acute) Rash (Acute) MSSA (methicillin susceptible Staphylococcus aureus) infection (Acute ~06/16/24) RT foot s/p amputation Amputation of toe of right foot (Acute ~06/13/24) [facility] [place] of transmetatarsal amputation of right foot (Acute ~06/16/24) [facility] [place] completion transmetatarsal amputation of right forefoot (digits 3,4,5) Bilateral lower extremity edema (Acute) Hearing loss (Acute) Gangrene of toe of right foot (Acute) Ischemic ulcer of right foot with fat layer exposed (Acute) Osteomyelitis of right foot (Acute) Diabetes mellitus with foot ulcer due to multiple causes (Acute) Gallstones without obstruction of gallbladder (Acute) BPH (benign prostatic hyperplasia) (Chronic) History of smoking at least 1 pack per day for at least 30 years (Acute) Gouty tophi of hand (Acute) Chronic gouty arthropathy with tophi (Acute) Hyperkalemia (Acute 07/26/14) Hypertension (Chronic) Diabetic peripheral angiopathy (Chronic) Diabetic peripheral neuropathy (Chronic) Chronic pain syndrome (Chronic) low back pain, drug contract at [facility]-V PMS and drug screen on 08/1221-patient on chronic hydrocodone Coronary artery disease involving [place] coronary artery of [place] heart with unstable angina pectoris (Chronic 08/30/17) 08-24-2017 [facility] [place]: 3 vessel disease (LAD,LCx and RCA): coronary bypass sx pending Dyspnea on exertion (Chronic 12/16/13) negative nuclear stress test echocardiogram: normal/ EF 65%/no valvulopathy Cardiol.eval. : not ischemia related ([facility]) Hyperlipidemia (Chronic) Peripheral autonomic neuropathy in disorders classified elsewhere (Chronic 09/15/14) Right heart failure (Acute) Cellulitis of foot, right (Acute) Hand arthritis (Acute) Chronic kidney disease (CKD) (Chronic) 08/2021- Cr 1.7 Diabetes mellitus type 2, insulin dependent (Acute) with nephropathy Obesity (Chronic) Gout (Chronic) 08/2021-diagnosed by rheumatology at [facility]-probable gout tophi of hands Edema (Acute) Diabetic retinopathy (Acute ~12/2021) B/L MODERATE-01/17 Leg wound, left (Acute) Diabetic foot infection (Acute) Cellulitis (Acute) Chronic foot ulcer (Acute) Nail dystrophy (Acute) Peripheral arterial disease (Acute) Acute Lyme disease (Acute) Elevated troponin (Acute) Erythema migrans (Lyme disease) (Acute) Gram-positive cocci bacteremia (Acute) Acute kidney injury superimposed on chronic kidney disease (Acute) Staphylococcus aureus bacteremia (Acute) Gouty arthritis of hand (Acute) Chronic acquired lymphedema (Acute) Bilateral lower extremities Chronic venous stasis dermatitis (Acute) Bilateral lower extremities Chronic venous insufficiency of lower extremity (Acute) Bilateral lower extremities Diabetic ulcer of toe of left foot (Acute) Diabetic ulcer of right foot associated with diabetes mellitus due to underlying condition (Acute) Obesity, morbid, BMI 40.0-49.9 (Acute) Lightheadedness (Acute) Weakness (Acute) Ulcer of left foot with bone involvement without evidence of necrosis (Acute) Hyponatremia (Acute) Chronic ulcer of left foot (Acute) Pancytopenia (Acute) Iron deficiency anemia (Acute) Medical History Palliative care encounter Toe osteomyelitis, right s/p amputation. Pseudomonas osteomyelitis 6wk IV Ceftazidime per ID DH Amputation of toe Congestive heart failure TIA (transient ischemic attack) Proliferative diabetic retinopathy of both eyes without macular edema associated with diabetes mellitus due to underlying condition (01/18/18) 01/18/18[place] [place] [place] (~2008) Obesity DM (diabetes mellitus) Laceration of lower leg with foreign body Diabetic foot ulcer Lymphedema Scrotal hematoma (07/26/14) A. S/p hydrocelectomy 07/24/14 Surgical History 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 secondary to diabetic ulcer, angiopathy S/P femoral-popliteal bypass surgery right. 03/2020 History of cataract removal with insertion of prosthetic lens History of hydrocelectomy (07/24/14) right S/P CABG [place] [facility] [place] needed H/O surgical procedure A. Hydrocelectomy 07/24/2014 Family History Mother No problems noted. Father Diabetes Myocardial infarction Heart disease Sister Diabetes Social History Smoking/Tobacco Use Status: Former Tobacco Use Quit Date: 09/28/83 Tobacco: How many years used: 5 Smoking risk assessment performed?: Yes Alcohol Intake: current Alcohol Intake frequency: holidays/special occasions only Drug use: Occasionally Substance use type: marijuana Housing: house Pets and animals: Yes Pets and animals: cat(s) and dog(s) What type of physical activity do you participate in: none Do you feel safe at home: Yes Do you feel safe in your relationship?: Yes
--- NOTE | 2025-07-06 17:15 | DI.RAD_ITS ---
Exam(s) XR CHEST 2V PA LATERAL EXAM: XR CHEST 2V PA LATERAL CLINICAL HISTORY: Dizziness. TECHNIQUE: 2D digital imaging was performed. COMPARISON: CR XR CHEST 2V PA LATERAL from 02/18/[address] ABDOMEN PELVIS WO from 07/06/2025 FINDINGS: 2 views: Sternotomy wires. Heart size is mildly prominent. Mediastinum is not widened. Lungs are clear. No infiltrates nor pleural effusions. No evidence of pulmonary edema. IMPRESSION: No acute pulmonary findings. Sternotomy. Mild cardiomegaly. No pulmonary edema. DATA REPOSITORY: RADIATION DOSE DELIVERED:
[2025-07-06 17:33] LABS: Abs Immature Grans 0.08 10^3/uL (0.0-0.06); HCT 35.7 % (40.0-50.0); HGB 12.6 g/dL (13.5-17.5); Immature Grans % 0.6 %; MCH 30.7 pg (27.0-33.0); MCHC 35.3 % (32.0-36.0); MCV 87 fL (80-95); MPV 10.4 fL (8.0-11.0); Platelet Count 157 10^3/uL (130-400); RBC 4.10 10^6/uL (4.36-5.78); RDW 13.0 % (11.8-14.1); RDW-SD 41.2 fL; WBC 14.49 10^3/uL (4.4-10.8)
[2025-07-06] MEDS: Ondansetron 4 MG/2 ML VIAL IVP (17:36)
[2025-07-06] MEDS: Normal Saline 1,000 ML 150 ML IV (17:37)
[2025-07-06 17:47] LABS: INR 1.0 (0.9-1.1); Prothrombin Time 10.2 sec (9.1-11.1)
[2025-07-06 17:54] LABS: ALT 43 U/L (16-63); AST 42 U/L (15-37); Albumin 2.8 g/dL (3.4-5.0); Alkaline Phosphatase 163 U/L (46-116); Anion Gap 12.6 mmol/L (3-11); BUN 78 mg/dL (7-18); Bilirubin, Total 0.7 mg/dL (0.2-1.0); CO2 26.4 mmol/L (21.0-32.0); Calcium 8.6 mg/dL (8.5-10.1); Chloride 83 mmol/L (98-107); Estimated GFR 9.68 (mL/min/1.73m2); Glucose 188 mg/dL (74-106); Magnesium 2.2 mg/dL (1.8-2.4); Potassium 4.0 mmol/L (3.5-5.1); Total Protein 6.8 g/dL (6.4-8.2)
[2025-07-06 18:05] LABS: Sodium 122 mmol/L (136-145); Troponin I 469 ng/L (<or=76)
--- NOTE | 2025-07-06 18:42 | DI.CT_ITS ---
Exam(s) CT ABDOMEN PELVIS WO EXAM: CT ABDOMEN PELVIS WO CLINICAL HISTORY: RLQ abd Pain. TECHNIQUE: Imaging Protocol: Axial computed tomography images with coronal and sagittal reformatted images were created and reviewed CONTRAST MATERIAL: Intravenous: none Oral: None COMPARISON: CT CT CHEST/ABD/PEL WO from 05/06/2023 FINDINGS: VISUALIZED LUNG BASES: No nodules nor pleural effusions evident. ABDOMEN: There is no ascites. LIVER: There are no obvious focal hepatic lesions evident of this noninfused study. GALLBLADDER/BILIARY: There are multiple 5-7 mm gallstones in the dependent aspect of the gallbladder wall lumen as well as within cystic duct. The gallbladder is mildly distended. There is no pericholecystic fluid. This CBD is not dilated. PANCREAS: No evidence of pancreatic mass nor dilatation of the pancreatic duct. SPLEEN: Spleen size is upper normal. There are no obvious splenic lesions. A single tiny splenic granulomas noted. The serpiginous splenic artery is noted to be calcified. It originates as an independent vessel off the anterior aorta (instead of conventional off a celiac artery) ADRENALS: There are no significant adrenal masses. KIDNEYS:There is abundant streaking around both kidneys but unchanged from 2022 and remaining symmetrical. There is some vascular calcification in the kidneys. There are no obvious renal calculi nor hydronephrosis. No solid renal masses. Ureters are not dilated.. ABDOMINAL AORTA: Abdominal aorta is not enlarged. LYMPH NODES: There is no retroperitoneal nor paraaortic adenopathy. ABDOMINAL WALL: Small fat only containing umbilical hernia. GI: There is no evidence of bowel obstruction, free air, nor abscess. PELVIS: LYMPH NODES: There is no intrapelvic nor inguinal adenopathy. GI: No evidence of appendicitis.No evidence of acute sigmoid diverticulitis. URINARY BLADDER: There is relatively uniform thickening of the urinary bladder wall. REPRODUCTIVE: The prostate gland is enlarged, measuring 6 cm wide. There is no obturator adenopathy nor enlarged lymph nodes along the internal iliac chains. There is some calcification of vas deferens bilaterally; this is usually seen in the setting of diabetes. OSSEOUS: No significant osseous lesions. No fractures. Chronic disc space narrowing L5-S1. IMPRESSION: 1. There are multiple gallstones measuring up to 7 mm size. Most are at level of gallbladder neck but there are 2 calculi within the cystic duct. The gallbladder is mildly distended but does not appear edematous. The CBD is not dilated. There are no dilated intrahepatic ducts. Recommend follow-up ultrasound 2. No evidence of acute appendicitis nor acute diverticulitis. 3. No evidence of significant renal calculi nor obstruction of the urinary tracts. 4. The urinary bladder wall is diffusely thickened. Suspect that this may be related to significantly enlarged prostate gland here. Nevertheless, cannot exclude chronic cystitis. There are no bladder diverticuli. Other findings as above. Report called by myself to ER provider 07/06/2025 at 6:57 p.m. RADIATION DOSE DELIVERED: 1,393.69mGy.cm Total DLP DATA REPOSITORY: All CT scans at this facility are submitted to the National Radiology Data Registry (NRDR) Dose Index Registry (DIR) with the [employer] ([employer]). RADIATION OPTIMIZATION: All CT scans at this facility use at least one of these dose optimization techniques: automated exposure control; mA and/or kV adjustment per patient size (includes targeted exams where dose is matched to clinical indication); or iterative reconstruction.
[2025-07-06 19:22] LABS: Anion Gap 11.1 mmol/L (3-11); BUN 79 mg/dL (7-18); CO2 26.9 mmol/L (21.0-32.0); Calcium 8.2 mg/dL (8.5-10.1); Chloride 86 mmol/L (98-107); Estimated GFR 10.09 (mL/min/1.73m2); Glucose 166 mg/dL (74-106); Potassium 4.0 mmol/L (3.5-5.1)
[2025-07-06 19:24] LABS: Sodium 124 mmol/L (136-145)
[2025-07-06 19:32] LABS: Troponin I 430 ng/L (<or=76)
[2025-07-06 19:52] LABS: Glucose 500 mg/dL (Negative)
[2025-07-06 19:58] LABS: C & S Indicated? Yes; WBC >50 HPF (0-5)
[2025-07-06] MEDS: Fosfomycin Tromethamine 3 GM PACKET PO (20:27)
[2025-07-06 20:51] LABS: Lipase 24 U/L (<78)
[2025-07-06 21:28] LABS: Troponin I 422 ng/L (<or=76)
[2025-07-06] MEDS: Lidocaine 2% Jelly 6 ML SYR (21:30)
--- NOTE | 2025-07-06 21:34 | W.PM.HP.N ---
Date of service: 07/06/25 Time of Service: 21:34 Assessment and Plan Assessment and plan (1) Abdominal pain: Start date: 07/06/25 Status: Acute Assessment and plan: This is a 70-year-old gentleman presenting with recurrent abdominal pain which she has had in the past and now with new diagnosis of cholelithiasis though there is no sign of obstruction by imaging with CT and lipase was normal. Liver function tests were within normal limits though the alkaline phosphatase was slightly elevated as was the AST. The patient will be treated for probable UTI with urine culture and blood culture performed. Ultrasound of the gallbladder will be performed in the morning with patient n.p.o. after midnight. Surgical consultation is in place. Patient has had abdominal pain in the past as well and it may be a problem with bladder obstruction causing this issue. He does still have his appendix but this appears normal on CT of the abdomen. Patient is on treatment for his UTI and this should give good coverage for an abdominal process if this evolves. Patient will have his diet advanced as tolerated. He is a full code. (2) Acute kidney injury superimposed on chronic kidney disease: Start date: 07/06/25 Status: Acute Assessment and plan: There is a significant increase in the patient's baseline creatinine and this will be monitored closely as the give fluid resuscitation which also should help his hyponatremia. If he is not responding, phone consultation with nephrology should be sought and if patient needs renal replacement, he will need to be transferred. He is a full code. Present is appears to be reversible and from acute volume loss with his several days of nausea and vomiting with poor intake. (3) Hyponatremia: Start date: 07/06/25 Status: Acute Assessment and plan: This may be causing some of the patient's slight confusion but this is improved with IV fluid resuscitation. Continue the same watching closely for urine output and exacerbation of CHF. His BNP was markedly elevated which is of concern but his imaging does not show fluid overload in the lungs. (4) UTI (urinary tract infection): Start date: 07/06/25 Status: Acute Assessment and plan: Urine culture and treat with Levaquin with renal dosing to be guided by pharmacy. (5) Cholelithiasis: Status: Chronic Assessment and plan: This is a new problem to the patient and lipase is normal and liver functions do not suggest obstruction. His pain is also mostly in the right lower quadrant with a normal appendix by CT. Surgical consultation with ultrasound in the morning. The patient is a diabetic which could give an atypical presentation for acute cholecystitis. (6) Congestive heart failure: Assessment and plan: Markedly elevated BNP from baseline but patient appears dry clinically and by imaging. IV fluid resuscitation with close monitoring. Update echocardiogram. Patient troponins are slightly elevated but trending down most likely secondary to strain of his acute process. He is on Plavix with no indication for anticoagulation other than DVT prophylaxis. He does have a history of CAD with this has been stable. (7) Chronic pain syndrome: Status: Chronic Assessment and plan: Patient has chronic low back pain and is chronically on Vicodin 7.5/325 twice daily and this will be continued as needed while hospitalized. PDMP was consistent with monthly dosing and urine drug screen was consistent with patient's opioid use but also positive for THC. He appears to be low risk for abuse. Will follow-up with his PMD for ongoing treatment. Weight loss would be helpful. History of Present Illness History of Present Illness Chief Complaint: Nausea and vomiting for 5 days with dizziness and mild confusion. Narrative: This is a 70-year-old male patient who has a history of diabetes with recent increase in his dosing of his GLP-1 agonist presenting with 5-day history of poor intake with nausea and vomiting and now being slightly dizzy with confusion. He thinks he has become dehydrated. He also has abdominal pain which is in the right lower quadrant with CT negative for acute appendicitis or diverticulitis. He does have problems urinating with bladder outlet obstruction and feels that it may be his bladder bothering him. In the ED he was evaluated and found to have leukocytosis but no fever and a positive UA with probable UTI. CT of the abdomen also revealed gallstones of which the patient was not aware. He denies any right upper quadrant abdominal pain or jaundice. The patient has continued his usual outpatient medications including Lasix with a history of CHF status post CABG x 3 in 2017. He is a diabetic and has stated has recently changed his medical therapy with increased dosing of his GLP-1 agonist. He does have complication of diabetes with diabetic foot ulcer status post transmetatarsal imitation of the right foot and amputation of the left toe. He has lost weight on his present regimen which has improved his diabetes. He has not had any recent infections. He does have problem with skin changes over his leg with venous stasis edema chronically with his CHF. He does not appear septic. He is feeling slightly better with IV fluid resuscitation but his BNP was markedly elevated from his baseline. His chest x-ray did not show CHF. He is not hypoxic. He did have elevated troponins in the ED but is not having chest pain and this appears to be a secondary increase with his acute processes. Patient will be admitted for rehydration and watching closely for renal function improvement with the creatinine being about 3 times increased from his baseline. If he is not improving with fluid resuscitation and with his history of CHF, transfer should be considered for renal replacement. He is a full code. Review of Systems Narrative: 13 point review of system otherwise unrevealing or stable. Patient does have a history of chronic back pain on Vicodin up to twice daily without evidence of misuse. PDMP was reviewed and consistent with this usage. PFSH All Active Problems (Updated 07/07/25 @ 10:21 by Chauncey Gil) Abdominal pain (Acute) Cholelithiasis (Chronic) UTI (urinary tract infection) (Acute) Acute kidney injury superimposed on chronic kidney disease (Acute) Hyponatremia (Acute) Atrial flutter (Acute) Rash (Acute) MSSA (methicillin susceptible Staphylococcus aureus) infection (Acute ~06/16/24) RT foot s/p amputation Amputation of toe of right foot (Acute ~06/13/24) [facility]- 2nd toe History of transmetatarsal amputation of right foot (Acute ~06/16/24) [facility]- open, completion transmetatarsal amputation of right forefoot (digits 3,4,5) Bilateral lower extremity edema (Acute) Hearing loss (Acute) Gangrene of toe of right foot (Acute) Ischemic ulcer of right foot with fat layer exposed (Acute) Osteomyelitis of right foot (Acute) Diabetes mellitus with foot ulcer due to multiple causes (Acute) Gallstones without obstruction of gallbladder (Acute) BPH (benign prostatic hyperplasia) (Chronic) History of smoking at least 1 pack per day for at least 30 years (Acute) Gouty tophi of hand (Acute) Chronic gouty arthropathy with tophi (Acute) Hyperkalemia (Acute 07/26/14) Hypertension (Chronic) Diabetic peripheral angiopathy (Chronic) Diabetic peripheral neuropathy (Chronic) Chronic pain syndrome (Chronic) low back pain, drug contract at [facility] PMS and drug screen on 08/1221-patient on chronic hydrocodone Coronary artery disease involving [place] coronary artery of [place] heart with unstable angina pectoris (Chronic 08/30/17) 08-24-2017 [facility] cardiac CATH: 3 vessel disease (LAD,LCx and RCA): coronary bypass sx pending Dyspnea on exertion (Chronic 12/16/13) negative nuclear stress test echocardiogram: normal/ EF 65%/no valvulopathy Cardiol.eval. : not ischemia related ([facility]) Hyperlipidemia (Chronic) Peripheral autonomic neuropathy in disorders classified elsewhere (Chronic 09/15/14) Right heart failure (Acute) Cellulitis of foot, right (Acute) Hand arthritis (Acute) Chronic kidney disease (CKD) (Chronic) 08/2021- Cr 1.7 Diabetes mellitus type 2, insulin dependent (Acute) with nephropathy Obesity (Chronic) Gout (Chronic) 08/2021-diagnosed by rheumatology at [facility]-probable gout tophi of hands Edema (Acute) Diabetic retinopathy (Acute ~12/2021) B/L MODERATE-01/17 Leg wound, left (Acute) Diabetic foot infection (Acute) Cellulitis (Acute) Chronic foot ulcer (Acute) Nail dystrophy (Acute) Peripheral arterial disease (Acute) Acute Lyme disease (Acute) Elevated troponin (Acute) Erythema migrans (Lyme disease) (Acute) Gram-positive cocci bacteremia (Acute) Acute kidney injury superimposed on chronic kidney disease (Acute) Staphylococcus aureus bacteremia (Acute) Gouty arthritis of hand (Acute) Chronic acquired lymphedema (Acute) Bilateral lower extremities Chronic venous stasis dermatitis (Acute) Bilateral lower extremities Chronic venous insufficiency of lower extremity (Acute) Bilateral lower extremities Diabetic ulcer of toe of left foot (Acute) Diabetic ulcer of right foot associated with diabetes mellitus due to underlying condition (Acute) Obesity, morbid, BMI 40.0-49.9 (Acute) Lightheadedness (Acute) Weakness (Acute) Ulcer of left foot with bone involvement without evidence of necrosis (Acute) Hyponatremia (Acute) Chronic ulcer of left foot (Acute) Pancytopenia (Acute) Iron deficiency anemia (Acute) Medical History (Updated 07/07/25 @ 10:21 by Chauncey Gil) Palliative care encounter Toe osteomyelitis, right s/p amputation. Pseudomonas osteomyelitis 6wk IV Ceftazidime per ID Amputation of toe Congestive heart failure TIA (transient ischemic attack) Proliferative diabetic retinopathy of both eyes without macular edema associated with diabetes mellitus due to underlying condition (01/18/18) 01/18/18-[facility] 01/31/19-[facility] Stroke (~2008) Obesity DM (diabetes mellitus) Laceration of lower leg with foreign body Diabetic foot ulcer Lymphedema Scrotal hematoma (07/26/14) A. S/p hydrocelectomy 07/24/14 Surgical History 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 secondary to diabetic ulcer, angiopathy S/P femoral-popliteal bypass surgery right. 03/2020 History of cataract removal with insertion of prosthetic lens History of hydrocelectomy (07/24/14) right S/P CABG x 3 (08/30/17) [facility] [place]-29-[place] : no fup needed H/O surgical procedure A. Hydrocelectomy 07/24/2014 Family History Mother No problems noted. Father Diabetes Myocardial infarction Heart disease Sister Diabetes Social History Smoking/Tobacco Use Status: Former Tobacco Use Quit Date: 09/28/83 Tobacco: How many years used: 5 Smoking risk assessment performed?: Yes Alcohol Intake: current Alcohol Intake frequency: holidays/special occasions only Drug use: Occasionally Substance use type: marijuana Housing: house Pets and animals: Yes Pets and animals: cat(s) and dog(s) What type of physical activity do you participate in: none Do you feel safe at home: Yes Do you feel safe in your relationship?: Yes Meds Allergies and Home Medications Allergies Allergy/AdvReac Type Severity Reaction Status Date / Time cephalexin monohydrate (From Allergy Severe SOB Verified 07/06/25 17:09 Keflex) Penicillins Allergy Unknown Skin Rash Verified 07/06/25 17:09 Home Medications ?Medication ?Instructions ?Recorded ?Confirmed ?Type insulin syringe-needle U-100 1 mL ##3 10/14/16 07/06/25 History 26 x 1/2 (BD Insulin Syringe) inhalational spacing device #1 unit 03/15/18 07/06/25 Rx (Aerochamber Plus Flow-Vu) blood-glucose meter (FreeStyle ##1 05/21/18 07/06/25 Rx Lite Meter kit) blood sugar diagnostic (FreeStyle #400 strips 09/15/19 07/06/25 Rx Lite Strips) flash glucose scanning reader #1 ea 04/09/21 07/06/25 Rx (FreeStyle Alfredo 2 [place]) needle (disp) 21 G 21 gauge x 1 #100 ea 04/12/21 07/06/25 Rx 1/2 (BD Regular Bevel [place]) ferrous sulfate 325 mg (65 mg 325 mg PO DAILY #90 tabs 06/11/23 07/06/25 Rx iron) tablet cholecalciferol (vitamin D3) 50 50 mcg PO DAILY 07/01/23 07/06/25 History mcg (2,000 unit) capsule flash glucose sensor (FreeStyle #2 ea 09/25/23 07/06/25 Rx Alfredo 2 Sensor kit) diabetic shoes #2 ea 02/02/24 07/06/25 Rx ezetimibe 10 mg tablet 10 mg PO DAILY 02/02/24 07/06/25 History Lactobacillus acidophilus 10 mg PO DAILY 04/20/24 07/06/25 History pregabalin 200 mg capsule 150 mg PO BID 04/29/24 07/06/25 History pen needle, diabetic 31 gauge x #100 ea 05/16/24 07/06/25 Rx 5/16 (BD Ultra-Fine Short Pen Needle) acetaminophen 325 mg tablet 650 mg PO Q6H PRN 06/21/24 07/06/25 History alteplase 2 mg intra-catheter 2 mg intra-catheter ONCE PRN 06/21/24 07/06/25 History solution rosuvastatin 40 mg tablet See Rx Instructions .Route 07/13/24 07/06/25 Rx .COMPLEX #90 tabs dapagliflozin propanediol 10 mg 10 mg PO DAILY #90 tabs 07/14/24 07/06/25 Rx tablet clopidogrel 75 mg tablet 75 mg PO DAILY #90 tabs 07/28/24 07/06/25 Rx insulin glargine 100 unit/mL (3 40 unit (0.4 mL) subcut BID #90 mL 07/28/24 07/06/25 Rx mL) subcutaneous pen (Basaglar KwikPen U-100 Insulin) allopurinol 300 mg tablet 300 mg PO DAILY 02/01/25 07/06/25 History triamcinolone acetonide 0.5 % 1 applic topical BID PRN 03/20/25 07/06/25 Rx topical ointment dermatitis #15 grams allopurinol 100 mg tablet 100 mg PO DAILY #90 tabs 03/23/25 07/06/25 Rx amlodipine 10 mg tablet 10 mg PO DAILY #90 tabs 03/23/25 07/06/25 Rx fluticasone propionate 50 1 spray intranasal DAILY PRN nasal 03/23/25 07/06/25 Rx mcg/actuation nasal congestion #16 grams spray,suspension (Flonase Allergy Relief) furosemide 40 mg tablet 40 mg PO DAILY #90 tabs 03/23/25 07/06/25 Rx gabapentin 100 mg capsule 200 mg (2 x 100 mg) PO TID #180 03/23/25 07/06/25 Rx caps losartan 25 mg tablet 25 mg PO DAILY #90 tabs 03/23/25 07/06/25 Rx nitroglycerin 0.4 mg sublingual 0.4 mg sublingual Q5-15M PRN chest 03/23/25 07/06/25 Rx tablet pain #25 tabs sertraline 50 mg tablet 50 mg PO DAILY #90 tabs 03/23/25 07/06/25 Rx ketoconazole 2 % topical cream 1 applic topical DAILY #120 grams 05/01/25 07/06/25 Rx insulin regular hum U-500 conc 500 90 unit (0.18 mL) subcut QACBREAK 06/09/25 07/06/25 Rx unit/mL(3 mL) subcut pen (Humulin #47 mL R U-500 (Conc) Insulin Kwikpen) hydrocodone 7.5 mg-acetaminophen 1 tab PO BID PRN back pain #56 tabs 06/14/25 07/06/25 Rx 325 mg tablet carvedilol 6.25 mg tablet 3.125 mg (1/2 x 6.25 mg) PO DAILY 07/06/25 07/06/25 Rx #90 tabs ondansetron 8 mg disintegrating 8 mg PO Q8H PRN nausea and 07/06/25 07/06/25 Rx tablet vomiting #20 tabs tirzepatide 5 mg/0.5 mL 5 mg subcut QWEEK 07/06/25 07/06/25 History subcutaneous pen injector (Spunhakeem) Exam Narrative Exam Narrative: General Patient patient appears older than stated age, morbidly obese with moderately large pannus, alert and oriented x 3 and in mild distress from his abdominal discomfort. He also states that his White is irritating his genitalia. HEENT: Normocephalic with coarse and facial features, eyes with pupils equal and reactive light symmetrically, extraocular movement intact and sclera anicteric. Oropharynx with dry mucosa. Neck: Supple without JVD. Back: Stooped posture without CVA tenderness. Lungs: Fair aeration clear to auscultation percussion. Heart: Regular rate and rhythm with no appreciable murmur or gallop. Well-healed sternal scar. Abdomen: Obese contour, moderate pannus, soft to palpation but tender to deep palpation right lower abdomen without rebound. No guarding. No palpable hepatosplenomegaly. Bowel sounds positive in all quadrants. Genitalia/rectal: Exam deferred. Patient does have a White catheter in place draining dark urine. Skin: Normal color, warm and dry. Chronic skin changes over legs with atrophy, loss of hair and dry ulcers over the right pretibial area more than left. Extremities: Without clubbing, cyanosis or pitting edema. Chronic skin changes over legs as mentioned. Patient does have transmetatarsal amputation of the right foot with amputation of the fifth toe on the left foot. His feet were covered with socks during exam. Neuro: Cranial nerves II through XII gross intact, no focalized motor deficits. No tremor. Psych: Flattened affect with normal mood. No abnormal thought processes. Patient states that his memory is slightly cloudy but he is able to give adequate history. Remote and recent memory grossly intact. Results Imaging Imaging Studies: EXAM: CT ABDOMEN PELVIS WO Date of exam: 07/06/2025 CLINICAL HISTORY: RLQ abd Pain. TECHNIQUE: Imaging Protocol: Axial computed tomography images with coronal and sagittal reformatted images were created and reviewed CONTRAST MATERIAL: Intravenous: none Oral: None COMPARISON: CT CT CHEST/ABD/PEL WO from 05/06/2023 FINDINGS: VISUALIZED LUNG BASES: No nodules nor pleural effusions evident. ABDOMEN: There is no ascites. LIVER: There are no obvious focal hepatic lesions evident of this noninfused study. GALLBLADDER/BILIARY: There are multiple 5-7 mm gallstones in the dependent aspect of the gallbladder wall lumen as well as within cystic duct. The gallbladder is mildly distended. There is no pericholecystic fluid. This CBD is not dilated. PANCREAS: No evidence of pancreatic mass nor dilatation of the pancreatic duct. SPLEEN: Spleen size is upper normal. There are no obvious splenic lesions. A single tiny splenic granulomas noted. The serpiginous splenic artery is noted to be calcified. It originates as an independent vessel off the anterior aorta (instead of conventional off a celiac artery) ADRENALS: There are no significant adrenal masses. KIDNEYS:There is abundant streaking around both kidneys but unchanged from 202 and remaining symmetrical. There is some vascular calcification in the kidneys. There are no obvious renal calculi nor hydronephrosis. No solid renal masses. Ureters are not dilated.. ABDOMINAL AORTA: Abdominal aorta is not enlarged. LYMPH NODES: There is no retroperitoneal nor paraaortic adenopathy. ABDOMINAL WALL: Small fat only containing umbilical hernia. GI: There is no evidence of bowel obstruction, free air, nor abscess. PELVIS: LYMPH NODES: There is no intrapelvic nor inguinal adenopathy. GI: No evidence of appendicitis.No evidence of acute sigmoid diverticulitis. URINARY BLADDER: There is relatively uniform thickening of the urinary bladder wall. REPRODUCTIVE: The prostate gland is enlarged, measuring 6 cm wide. There is no obturator adenopathy nor enlarged lymph nodes along the internal iliac chains. There is some calcification of vas deferens bilaterally; this is usually seen in the setting of diabetes. OSSEOUS: No significant osseous lesions. No fractures. Chronic disc space narrowing L5-S1. IMPRESSION: 1. There are multiple gallstones measuring up to 7 mm size. Most are at level of gallbladder neck but there are 2 calculi within the cystic duct. The gallbladder is mildly distended but does not appear edematous. The CBD is not dilated. There are no dilated intrahepatic ducts. Recommend follow-up ultrasound 2. No evidence of acute appendicitis nor acute diverticulitis. 3. No evidence of significant renal calculi nor obstruction of the urinary tracts. 4. The urinary bladder wall is diffusely thickened. Suspect that this may be related to significantly enlarged prostate gland here. Nevertheless, cannot exclude chronic cystitis. There are no bladder diverticuli. Other findings as above. EXAM: XR CHEST 2V PA LATERAL Date of exam: 07/06/2025 CLINICAL HISTORY: Dizziness. TECHNIQUE: 2D digital imaging was performed. COMPARISON: CR XR CHEST 2V PA LATERAL from 02/18/[address] ABDOMEN PELVIS WO from 07/06/2025 FINDINGS: 2 views: Sternotomy wires. Heart size is mildly prominent. Mediastinum is not widened. Lungs are clear. No infiltrates nor pleural effusions. No evidence of pulmonary edema. IMPRESSION: No acute pulmonary findings. Sternotomy. Mild cardiomegaly. No pulmonary edema. Labs 07/07/25 05:52 07/07/25 05:52 Labs: Laboratory Results - last 24 hr 07/06/25 07/06/25 07/06/25 17:28 18:55 19:34 WBC 14.49 H RBC 4.10 L Hgb 12.6 L Hct 35.7 L MCV 87 MCH 30.7 MCHC 35.3 RDW 13.0 Plt Count 157 MPV 10.4 Immature Gran % 0.6 Neutrophils % 88.5 Lymphocytes % 1.5 Monocytes % 8.6 Eosinophils % 0.6 Basophils % 0.2 Nucleated RBC % 0.0 Absolute Neutrophils 12.82 H Absolute Lymphocytes 0.22 L Absolute Monocytes 1.25 H Absolute Eosinophils 0.09 Absolute Basophils 0.03 PT 10.2 INR 1.0 Sodium 122 L* 124 L* Potassium 4.0 4.0 Chloride 83 L 86 L Carbon Dioxide 26.4 26.9 Anion Gap 12.6 H 11.1 H BUN 78 H 79 H Creatinine 5.9 H* 5.7 H* Est GFR (CKD-EPI 2020) 9.68 10.09 Glucose 188 H 166 H Calcium 8.6 8.2 L Magnesium 2.2 Total Bilirubin 0.7 AST 42 H ALT 43 Alkaline Phosphatase 163 H Troponin I 469 H* 430 H* NT-Pro-B Natriuret Pep 98606 H Total Protein 6.8 Albumin 2.8 L Lipase 24 Urine Color Yellow Urine Clarity Sl Cloudy Urine pH 5.0 Ur Specific [place] 1.010 Urine Protein 100 H Urine Ketones Negative Urine Blood Moderate H Urine Nitrite Negative Urine Bilirubin Negative Urine Urobilinogen 0.2 Ur Leukocyte Esterase Small H Urine RBC Not Applicable Urine WBC >50 H Ur Epithelial Cells Not Applicable Urine Crystals Not Applicable Urine Bacteria Not Applicable Urine Mucus Not Applicable Ur Culture Indicated? Yes Urine Glucose 500 H 07/06/25 20:58 WBC RBC Hgb Hct MCV MCH MCHC RDW Plt Count MPV Immature Gran % Neutrophils % Lymphocytes % Monocytes % Eosinophils % Basophils % Nucleated RBC % Absolute Neutrophils Absolute Lymphocytes Absolute Monocytes Absolute Eosinophils Absolute Basophils PT INR Sodium Potassium Chloride Carbon Dioxide Anion Gap BUN Creatinine Est GFR (CKD-EPI 2020) Glucose Calcium Magnesium Total Bilirubin AST ALT Alkaline Phosphatase Troponin I 422 H* NT-Pro-B Natriuret Pep Total Protein Albumin Lipase Urine Color Urine Clarity Urine pH Ur Specific [place] Urine Protein Urine Ketones Urine Blood Urine Nitrite Urine Bilirubin Urine Urobilinogen Ur Leukocyte Esterase Urine RBC Urine WBC Ur Epithelial Cells Urine Crystals Urine Bacteria Urine Mucus Ur Culture Indicated? Urine Glucose Last Vital Signs Pulse 52 L 07/06/25 21:00 Resp 19 07/06/25 21:20 BP 104/56 L 07/06/25 20:16 Pulse Ox 96 07/06/25 21:00 Time Spent Time spent with Patient: >75 minutes Time was spent: preparing to see the patient(eg.review tests), obtaining and/or reviewing separately otained hiistory, ordering medications,tests, procedures, referring, communicating with other health career guidance counselor, indepentently interpreting results and care coordination
[2025-07-06] MEDS: levoFLOXacin 500 MG/100 ML BAG 100 MG IVPB (22:57)
--- NOTE | 2025-07-06 23:30 | W.PC.ACHO ---
Registration Status: REG ER Primary Language: Preferred Language: Setswana ED Information & Data Chief Complaint Nausea/Vomit/Diar 07/06/25 17:11 Other Complaint Arrhythmia 07/06/25 16:59 Triage Note pt here for N/V X4 days, 07/06/25 16:59 dizziness, denies diarrhea, last BM today. Right sided abd pain on palpation. increased back pain, reported new onset AFIB from [employer] [facility] [employer] Medical / Surgical History (Last Reviewed 07/06/25 @ 21:34 by Chauncey Gil) Palliative care encounter Toe osteomyelitis, right Amputation of toe Congestive heart failure TIA (transient ischemic attack) Proliferative diabetic retinopathy of both eyes without macular edema associated with diabetes mellitus due to underlying condition (01/18/18) Stroke (~2008) Obesity DM (diabetes mellitus) Laceration of lower leg with foreign body Diabetic foot ulcer Lymphedema Scrotal hematoma (07/26/14) (Last Reviewed 07/06/25 @ 21:34 by Chauncey Gil) 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 S/P femoral-popliteal bypass surgery History of cataract removal with insertion of prosthetic lens History of hydrocelectomy (07/24/14) S/P CABG x 3 (08/30/17) H/O surgical procedure Most Recent Vital Signs Pulse 71 07/06/25 22:20 Pulse 68 07/06/25 22:20 Respiratory Rate 20 07/06/25 22:20 Blood Pressure 125/93 H 07/06/25 22:15 Blood Pressure Mean 104 07/06/25 22:15 Blood Pressure Position Sitting 07/06/25 16:59 Pulse Oximetry 94 07/06/25 22:20 Oxygen Delivery Method Room Air 07/06/25 16:59 Oxygen Flow Rate 0 07/06/25 16:59 Allergies cephalexin monohydrate (From Keflex) Allergy (Severe, Verified 07/06/25 17:09) SOB Penicillins Allergy (Unknown, Verified 07/06/25 17:09) Skin Rash Precautions Isolation Standard precaution 07/06/25 17:08 Active Medications Generic Name Dose Route Start Last Admin Trade Name Freq PRN Reason Stop Dose Admin Sodium Chloride 1,000 mls @ 150 mls/hr 07/06/25 17:14 07/06/25 17:37 Saline 1000ml Bag IV 07/06/25 23:53 150 mls/hr INFUSION STA Administration Levofloxacin 500 mg in 100 mls @ 100 mls/hr 07/06/25 22:47 07/06/25 22:57 Levaquin Premixed Bag IVPB 100 mls/hr Q48H RICCO Administration IV IV Catheter Type [Right Saline Lock Antecubital] IV Catheter Gauge [Right 18 Antecubital] Diagnostics 07/06/25 07/06/25 07/06/25 Range/Units 23:02 20:58 19:34 WBC (4.4-10.8) 10^3/uL RBC (4.36-5.78) 10^6/uL Hgb (13.5-17.5) g/dL Hct (40.0-50.0) % MCV (80-95) fL MCH (27.0-33.0) pg MCHC (32.0-36.0) % RDW (11.8-14.1) % Plt Count (130-400) 10^3/uL MPV (8.0-11.0) fL Immature Gran % % Neutrophils % % Lymphocytes % % Monocytes % % Eosinophils % % Basophils % % Nucleated RBC % (0.0-0.3) % Absolute Neutrophils (1.2-6.7) 10^3/uL Absolute Lymphocytes (1.2-3.4) 10^3/uL Absolute Monocytes (0.1-0.8) 10^3/uL Absolute Eosinophils (0.0-0.7) 10^3/uL Absolute Basophils (0.0-0.2) 10^3/uL PT (9.1-11.1) sec INR (0.9-1.1) Sodium (136-145) mmol/L Potassium (3.5-5.1) mmol/L Chloride (98-107) mmol/L Carbon Dioxide (21.0-32.0) mmol/L Anion Gap (3-11) mmol/L BUN (7-18) mg/dL Creatinine (0.70-1.30) mg/dL Est GFR (CKD-EPI 2020) (mL/min/1.73m2) Glucose (74-106) mg/dL Calcium (8.5-10.1) mg/dL Magnesium (1.8-2.4) mg/dL Total Bilirubin (0.2-1.0) mg/dL AST (15-37) U/L ALT (16-63) U/L Alkaline Phosphatase (46-116) U/L Troponin I 422 H* (<or=76) ng/L NT-Pro-B Natriuret Pep (<300) pg/mL Total Protein (6.4-8.2) g/dL Albumin (3.4-5.0) g/dL Lipase (<78) U/L Urine Color Yellow (Yellow) Urine Clarity Sl Cloudy (Clear) Urine pH 5.0 (5-8) Ur Specific [place] 1.010 (1.005-1.025) Urine Protein 100 H (Neg-Trace) mg/dL Urine Ketones Negative (Negative) mg/dL Urine Blood Moderate H (Negative) Urine Nitrite Negative (Negative) Urine Bilirubin Negative (Negative) Urine Urobilinogen 0.2 (Up to 0.2) mg/dL Ur Leukocyte Esterase Small H (Negative) Urine RBC Not Applicable Urine WBC >50 H (0-5) HPF Ur Epithelial Cells Not Applicable Urine Crystals Not Applicable Urine Bacteria Not Applicable Urine Mucus Not Applicable Ur Culture Indicated? Yes Urine Glucose 500 H (Negative) mg/dL COVID-19 Source Pending SARS-CoV-2 (PCR) Pending Influenza Type A (PCR) Pending Influenza Type B (PCR) Pending RSV (PCR) Pending 07/06/25 07/06/25 Range/Units 18:55 17:28 WBC 14.49 H (4.4-10.8) 10^3/uL RBC 4.10 L (4.36-5.78) 10^6/uL Hgb 12.6 L (13.5-17.5) g/dL Hct 35.7 L (40.0-50.0) % MCV 87 (80-95) fL MCH 30.7 (27.0-33.0) pg MCHC 35.3 (32.0-36.0) % RDW 13.0 (11.8-14.1) % Plt Count 157 (130-400) 10^3/uL MPV 10.4 (8.0-11.0) fL Immature Gran % 0.6 % Neutrophils % 88.5 % Lymphocytes % 1.5 % Monocytes % 8.6 % Eosinophils % 0.6 % Basophils % 0.2 % Nucleated RBC % 0.0 (0.0-0.3) % Absolute Neutrophils 12.82 H (1.2-6.7) 10^3/uL Absolute Lymphocytes 0.22 L (1.2-3.4) 10^3/uL Absolute Monocytes 1.25 H (0.1-0.8) 10^3/uL Absolute Eosinophils 0.09 (0.0-0.7) 10^3/uL Absolute Basophils 0.03 (0.0-0.2) 10^3/uL PT 10.2 (9.1-11.1) sec INR 1.0 (0.9-1.1) Sodium 124 L* 122 L* (136-145) mmol/L Potassium 4.0 4.0 (3.5-5.1) mmol/L Chloride 86 L 83 L (98-107) mmol/L Carbon Dioxide 26.9 26.4 (21.0-32.0) mmol/L Anion Gap 11.1 H 12.6 H (3-11) mmol/L BUN 79 H 78 H (7-18) mg/dL Creatinine 5.7 H* 5.9 H* (0.70-1.30) mg/dL Est GFR (CKD-EPI 2020) 10.09 9.68 (mL/min/1.73m2) Glucose 166 H 188 H (74-106) mg/dL Calcium 8.2 L 8.6 (8.5-10.1) mg/dL Magnesium 2.2 (1.8-2.4) mg/dL Total Bilirubin 0.7 (0.2-1.0) mg/dL AST 42 H (15-37) U/L ALT 43 (16-63) U/L Alkaline Phosphatase 163 H (46-116) U/L Troponin I 430 H* 469 H* (<or=76) ng/L NT-Pro-B Natriuret Pep 14581 H (<300) pg/mL Total Protein 6.8 (6.4-8.2) g/dL Albumin 2.8 L (3.4-5.0) g/dL Lipase 24 (<78) U/L Urine Color (Yellow) Urine Clarity (Clear) Urine pH (5-8) Ur Specific [place] (1.005-1.025) Urine Protein (Neg-Trace) mg/dL Urine Ketones (Negative) mg/dL Urine Blood (Negative) Urine Nitrite (Negative) Urine Bilirubin (Negative) Urine Urobilinogen (Up to 0.2) mg/dL Ur Leukocyte Esterase (Negative) Urine RBC Urine WBC (0-5) HPF Ur Epithelial Cells Urine Crystals Urine Bacteria Urine Mucus Ur Culture Indicated? Urine Glucose (Negative) mg/dL COVID-19 Source SARS-CoV-2 (PCR) Influenza Type A (PCR) Influenza Type B (PCR) RSV (PCR) 07/06/25 21:53 Blood Culture - Pending Blood 07/06/25 21:43 Blood Culture - Pending Blood 07/06/25 19:34 Urine Culture - Pending Urine - Reflex from Ua Intake and Output - 24 Hour Total 07/06/25 16:59 thru 07/06/25 21:37 Output Total 800 Balance -800 Weight 109.769 kg Output: Urine 800 Other: Urine Color Straw Urine Appearance Cloudy Sediment Purulent Emesis Description None Urinary Catheter Urinary Catheter Date of 07/06/25 Insertion [Urethral (White)] Time of insertion [Urethral ( 21:36 White)] Falls Risk Assessment History of Falls No History 07/06/25 17:08 Contributing Factors No Factors 07/06/25 17:08 Ambulatory Aids Independent 07/06/25 17:08 Tubes/Lines None 07/06/25 17:08 Gait Evaluation No gait disturbance 07/06/25 17:08 Fall Total Score 0 07/06/25 17:08 Level of Risk Standard/Low Risk 07/06/25 17:08 Problems (Last Reviewed 07/06/25 @ 21:34 by Chauncey Gil) Abdominal pain (Acute) Cholelithiasis (Chronic) UTI (urinary tract infection) (Acute) Acute kidney injury superimposed on chronic kidney disease (Acute) Hyponatremia (Acute) v v v v v v v v v Sending and/or Receiving Nurses: Please use comment section below to note any information pertinent to the patient hand-off not included above. Information / Comments:70 m, admit through urgent care, then ED, to med/surg rm 214, for N/V/D x4 days. Increased rt sided abd. pain, new onset a-fib. White in place for retention, bladder scan of 400mls. in ED. Pt Dx UTI, CARYL. A&Ox4. Ind. w/ walker at baseline, stand by assist. Report received from: Called @ [id number], [facility] director outcomes
[2025-07-06 23:43] LABS: COVID-19 PCR Negative (Negative); RSV PCR Negative (Negative)
[2025-07-06 23:46] LABS: Cannabinoids THC Positive (Negative); METHADONE URINE SCREEN Negative (Negative)
[2025-07-06] MEDS: Normal Saline Flush 10 ML SYR IVP (23:58)
[2025-07-07] VITALS (8 sets, daily range): BP systolic 90–153; BP diastolic 50–125; PULSE 60–79; RESP 16–17; TEMP 36.3–37; O2SAT 92–99
[2025-07-07] MEDS: Lactated Ringers 1,000 ML 125 ML IV ×3 (00:43→18:17)
[2025-07-07] MEDS: Acetaminophen 325 MG TAB 650 MG PO ×3 (01:30→20:09)
[2025-07-07] MEDS: Heparin 5,000 UNITS/ML VIAL 5000 UNITS SC ×2 (01:31→10:27)
[2025-07-07] MEDS: Insulin Aspart 300 UNITS/3 ML PEN SC ×4 (01:31→22:20)
[2025-07-07 06:22] LABS: HCT 31.4 % (40.0-50.0); HGB 10.9 g/dL (13.5-17.5); MCH 30.4 pg (27.0-33.0); MCHC 34.7 % (32.0-36.0); MCV 88 fL (80-95); MPV 10.4 fL (8.0-11.0); Platelet Count 134 10^3/uL (130-400); RBC 3.58 10^6/uL (4.36-5.78); RDW 13.1 % (11.8-14.1); RDW-SD 41.9 fL; WBC 11.63 10^3/uL (4.4-10.8)
[2025-07-07 06:57] LABS: ALT 36 U/L (16-63); AST 41 U/L (15-37); Albumin 2.3 g/dL (3.4-5.0); Alkaline Phosphatase 147 U/L (46-116); Anion Gap 14.0 mmol/L (3-11); Bilirubin, Total 0.6 mg/dL (0.2-1.0); CO2 23.0 mmol/L (21.0-32.0); Calcium 8.3 mg/dL (8.5-10.1); Chloride 88 mmol/L (98-107); Estimated GFR 10.31 (mL/min/1.73m2); Glucose 126 mg/dL (74-106); Magnesium 2.2 mg/dL (1.8-2.4); Potassium 3.9 mmol/L (3.5-5.1); Sodium 125 mmol/L (136-145); Total Protein 5.8 g/dL (6.4-8.2)
[2025-07-07 07:03] LABS: BUN 82 mg/dL (7-18)
[2025-07-07 07:04] LABS: Troponin I 363 ng/L (<or=76)
--- NOTE | 2025-07-07 07:10 | W.SURGCON ---
Date of service: 07/07/25 Time of Service: 07:11 Assessment and Plan Assessment and plan (1) Cholelithiasis: Status: Chronic Assessment and plan: Bereket certainly has gallstones, and although the gallbladder is a little bit dilated on the CT scan, there are no major secondary signs suggestive of acute cholecystitis. More importantly, he is not at all tender over the gallbladder making cholecystitis less likely. Regardless, I do think an ultrasound of the right upper quadrant is very reasonable here. It will certainly get better characterization of the gallbladder, and give more detail with regards to biliary anatomy. History of Present Illness History of Present Illness Chief Complaint: Abdominal pain Narrative: Bereket is 70 years old. He tells me he began experiencing abdominal pain sometime on Thursday morning. He describes it as sharp, and radiating across the right lower portion of his abdomen. This was associated with some nausea and vomiting Thursday and Thursday. Although the nausea and vomiting resolved, he continued to have abdominal discomfort, with a general feeling of malaise, and eventually came to the emergency department last night. He had a leukocytosis around 15,000, and the underwent a CAT scan of the abdomen and pelvis that demonstrated cholelithiasis as well as bladder wall thickening. He also had elevated troponin, and beta natruretic peptide. Had evidence of acute kidney injury. White catheter was inserted, and he was resuscitated with lactated Ringer's. I was asked to see him in consultation for possible cholecystitis. Review of Systems Constitutional Constitutional: Reports fatigue, Denies fever(s) and Reports lethargy Eyes Eyes: Reports system reviewed and no additional complaints, except as documented ENT Ears, Nose, Mouth, and Throat: Reports system reviewed and no additional complaints, except as documented Cardiovascular Cardiovascular: Denies chest pain and Reports dyspnea on exertion Respiratory Respiratory: Denies chest congestion, Denies cough and Reports dyspnea on exertion Gastrointestinal Gastrointestinal: Reports abdominal pain, Denies change in bowel habits, Denies nausea and Denies vomiting Genitourinary Genitourinary: Reports urinary frequency Musculoskeletal Musculoskeletal: Reports back pain Endocrine Endocrine: Reports fatigue Hematologic/Lymphatic Hematologic/Lymphatic: Denies easy bleeding and Denies easy bruising PFSH All Active Problems (Updated 07/06/25 @ 21:53 by Chauncey Gil) Abdominal pain (Acute) Cholelithiasis (Chronic) UTI (urinary tract infection) (Acute) Acute kidney injury superimposed on chronic kidney disease (Acute) Hyponatremia (Acute) Atrial flutter (Acute) Rash (Acute) MSSA (methicillin susceptible Staphylococcus aureus) infection (Acute ~06/16/24) RT foot s/p amputation Amputation of toe of right foot (Acute ~06/13/24) [facility] [place]- 2nd toe History of transmetatarsal amputation of right foot (Acute ~06/16/24) [facility] [place]- open, completion transmetatarsal amputation of right forefoot (digits 3,4,5) Bilateral lower extremity edema (Acute) Hearing loss (Acute) Gangrene of toe of right foot (Acute) Ischemic ulcer of right foot with fat layer exposed (Acute) Osteomyelitis of right foot (Acute) Diabetes mellitus with foot ulcer due to multiple causes (Acute) Gallstones without obstruction of gallbladder (Acute) BPH (benign prostatic hyperplasia) (Chronic) History of smoking at least 1 pack per day for at least 30 years (Acute) Gouty tophi of hand (Acute) Chronic gouty arthropathy with tophi (Acute) Hyperkalemia (Acute 07/26/14) Hypertension (Chronic) Diabetic peripheral angiopathy (Chronic) Diabetic peripheral neuropathy (Chronic) Chronic pain syndrome (Chronic) low back pain, drug contract at [facility]-V PMS and drug screen on 08/1221-patient on chronic hydrocodone Coronary artery disease involving [place] coronary artery of [place] heart with unstable angina pectoris (Chronic 08/30/17) 08-24-2017 [facility] cardiac CATH: 3 vessel disease (LAD,LCx and RCA): coronary bypass sx pending Dyspnea on exertion (Chronic 12/16/13) negative nuclear stress test echocardiogram: normal/ EF 65%/no valvulopathy Cardiol.eval. : not ischemia related ([facility]) Hyperlipidemia (Chronic) Peripheral autonomic neuropathy in disorders classified elsewhere (Chronic 09/15/14) Right heart failure (Acute) Cellulitis of foot, right (Acute) Hand arthritis (Acute) Chronic kidney disease (CKD) (Chronic) 08/2021- Cr 1.7 Diabetes mellitus type 2, insulin dependent (Acute) with nephropathy Obesity (Chronic) Gout (Chronic) 08/2021-diagnosed by rheumatology at [facility]-probable gout tophi of hands Edema (Acute) Diabetic retinopathy (Acute ~12/2021) B/L MODERATE-4/22 Leg wound, left (Acute) Diabetic foot infection (Acute) Cellulitis (Acute) Chronic foot ulcer (Acute) Nail dystrophy (Acute) Peripheral arterial disease (Acute) Acute Lyme disease (Acute) Elevated troponin (Acute) Erythema migrans (Lyme disease) (Acute) Gram-positive cocci bacteremia (Acute) Acute kidney injury superimposed on chronic kidney disease (Acute) Staphylococcus aureus bacteremia (Acute) Gouty arthritis of hand (Acute) Chronic acquired lymphedema (Acute) Bilateral lower extremities Chronic venous stasis dermatitis (Acute) Bilateral lower extremities Chronic venous insufficiency of lower extremity (Acute) Bilateral lower extremities Diabetic ulcer of toe of left foot (Acute) Diabetic ulcer of right foot associated with diabetes mellitus due to underlying condition (Acute) Obesity, morbid, BMI 40.0-49.9 (Acute) Lightheadedness (Acute) Weakness (Acute) Ulcer of left foot with bone involvement without evidence of necrosis (Acute) Hyponatremia (Acute) Chronic ulcer of left foot (Acute) Pancytopenia (Acute) Iron deficiency anemia (Acute) Medical History Palliative care encounter Toe osteomyelitis, right s/p amputation. Pseudomonas osteomyelitis 6wk IV Ceftazidime per ID DH Amputation of toe Congestive heart failure TIA (transient ischemic attack) Proliferative diabetic retinopathy of both eyes without macular edema associated with diabetes mellitus due to underlying condition (01/18/18) 01/18/18-[facility] 01/31/19-[facility] Stroke (~2008) Obesity DM (diabetes mellitus) Laceration of lower leg with foreign body Diabetic foot ulcer Lymphedema Scrotal hematoma (07/26/14) A. S/p hydrocelectomy 07/24/14 Surgical History 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 secondary to diabetic ulcer, angiopathy S/P femoral-popliteal bypass surgery right. 03/2020 History of cataract removal with insertion of prosthetic lens History of hydrocelectomy (07/24/14) right S/P CABG x 3 (08/30/17[place] [facility] [place] : no fup needed H/O surgical procedure A. Hydrocelectomy 07/24/2014 Family History Mother No problems noted. Father Diabetes Myocardial infarction Heart disease Sister Diabetes Social History Smoking/Tobacco Use Status: Former Tobacco Use Quit Date: 09/28/83 Tobacco: How many years used: 5 Smoking risk assessment performed?: Yes Alcohol Intake: current Alcohol Intake frequency: holidays/special occasions only Drug use: Occasionally Substance use type: marijuana Housing: house Pets and animals: Yes Pets and animals: cat(s) and dog(s) What type of physical activity do you participate in: none Do you feel safe at home: Yes Do you feel safe in your relationship?: Yes Exam Const General: cooperative, comfortable and no acute distress Orientation: alert, awake and oriented x3 HENMT Head: normal to inspection Eyes General: appearance normal, both eyes and all related structures Neck Neck: normal visual inspection, full ROM and no lymphadenopathy Cardio Rate: regular rate Rhythm: regular rhythm Heart Sounds: S1 normal and S2 normal GI Inspection: non-distended Palpation: soft, no guarding and nontender Results Last Vital Signs Temp 98.6 F 07/07/25 04:39 Pulse 60 07/07/25 04:39 Resp 16 07/07/25 04:39 BP 114/61 07/07/25 04:39 Pulse Ox 95 07/07/25 04:39 Labs 07/07/25 05:52 07/07/25 05:52 Labs: Laboratory Results - last 24 hr 07/06/25 07/06/25 07/06/25 17:28 18:55 19:34 WBC 14.49 H RBC 4.10 L Hgb 12.6 L Hct 35.7 L MCV 87 MCH 30.7 MCHC 35.3 RDW 13.0 Plt Count 157 MPV 10.4 Immature Gran % 0.6 Neutrophils % 88.5 Lymphocytes % 1.5 Monocytes % 8.6 Eosinophils % 0.6 Basophils % 0.2 Nucleated RBC % 0.0 Absolute Neutrophils 12.82 H Absolute Lymphocytes 0.22 L Absolute Monocytes 1.25 H Absolute Eosinophils 0.09 Absolute Basophils 0.03 PT 10.2 INR 1.0 Sodium 122 L* 124 L* Potassium 4.0 4.0 Chloride 83 L 86 L Carbon Dioxide 26.4 26.9 Anion Gap 12.6 H 11.1 H BUN 78 H 79 H Creatinine 5.9 H* 5.7 H* Est GFR (CKD-EPI 2020) 9.68 10.09 Glucose 188 H 166 H Calcium 8.6 8.2 L Magnesium 2.2 Total Bilirubin 0.7 AST 42 H ALT 43 Alkaline Phosphatase 163 H Troponin I 469 H* 430 H* NT-Pro-B Natriuret Pep 07411 H Total Protein 6.8 Albumin 2.8 L Lipase 24 Urine Color Yellow Urine Clarity Sl Cloudy Urine pH 5.0 Ur Specific [place] 1.010 Urine Protein 100 H Urine Ketones Negative Urine Blood Moderate H Urine Nitrite Negative Urine Bilirubin Negative Urine Urobilinogen 0.2 Ur Leukocyte Esterase Small H Urine RBC Not Applicable Urine WBC >50 H Ur Epithelial Cells Not Applicable Urine Crystals Not Applicable Urine Bacteria Not Applicable Urine Mucus Not Applicable Ur Culture Indicated? Yes Urine Glucose 500 H Urine Opiates Screen Positive A Urine Methadone Screen Negative Ur Barbiturates Screen Negative Ur Tricyclics Screen Negative Ur Amphetamines Screen Negative U Benzodiazepines Scrn Negative Urine Cocaine Screen Negative Ur THC Screen Positive A COVID-19 Source SARS-CoV-2 (PCR) Influenza Type A (PCR) Influenza Type B (PCR) RSV (PCR) 07/06/25 07/06/25 07/07/25 20:58 23:02 05:52 WBC 11.63 H RBC 3.58 L Hgb 10.9 L Hct 31.4 L MCV 88 MCH 30.4 MCHC 34.7 RDW 13.1 Plt Count 134 MPV 10.4 Immature Gran % Neutrophils % Lymphocytes % Monocytes % Eosinophils % Basophils % Nucleated RBC % Absolute Neutrophils Absolute Lymphocytes Absolute Monocytes Absolute Eosinophils Absolute Basophils PT INR Sodium 125 L Potassium 3.9 Chloride 88 L Carbon Dioxide 23.0 Anion Gap 14.0 H BUN 82 H* Creatinine 5.6 H* Est GFR (CKD-EPI 2020) 10.31 Glucose 126 H Calcium 8.3 L Magnesium 2.2 Total Bilirubin 0.6 AST 41 H ALT 36 Alkaline Phosphatase 147 H Troponin I 422 H* 363 H* NT-Pro-B Natriuret Pep Total Protein 5.8 L Albumin 2.3 L Lipase Urine Color Urine Clarity Urine pH Ur Specific [place] Urine Protein Urine Ketones Urine Blood Urine Nitrite Urine Bilirubin Urine Urobilinogen Ur Leukocyte Esterase Urine RBC Urine WBC Ur Epithelial Cells Urine Crystals Urine Bacteria Urine Mucus Ur Culture Indicated? Urine Glucose Urine Opiates Screen Urine Methadone Screen Ur Barbiturates Screen Ur Tricyclics Screen Ur Amphetamines Screen U Benzodiazepines Scrn Urine Cocaine Screen Ur THC Screen COVID-19 Source Nasopharynx SARS-CoV-2 (PCR) Negative Influenza Type A (PCR) Negative Influenza Type B (PCR) Negative RSV (PCR) Negative Imaging Abdomen CT scan report/results: report reviewed and image reviewed CT scan - pelvis: report reviewed and image reviewed
--- NOTE | 2025-07-07 08:00 | DI.US_ITS ---
Exam(s) US ABDOMEN LIMITED EXAM: US ABDOMEN LIMITED CLINICAL HISTORY: Abdominal pain with cholelithiasis TECHNIQUE: Ultrasound abdomen performed using standard protocol. COMPARISON: CT CT ABDOMEN PELVIS WO from 07/06/2025 FINDINGS: PANCREAS: Normal where visualized. LIVER: Normal. Hepatopetal flow in the Portal Vein. The liver measures in 20.5 cm length. No evidence of a hepatic mass. GALLBLADDER:There are multiple mobile gallstones in the gallbladder. No evidence of wall thickening. No pericholecystic fluid identified. There is also sludge noted within the gallbladder. BILIARY SYSTEM: Common bile duct measures < 7 mm. No intrahepatic biliary ductal dilation. PINO'S SIGN: Negative. RIGHT KIDNEY: Kidney is normal in size. No evidence of renal calculi. No evidence of hydronephrosis. No renal mass or cyst identified. ASCITES: None seen. IMPRESSION: Cholelithiasis and gallbladder sludge. No sonographic evidence to suggest acute cholecystitis. DATA REPOSITORY:
--- NOTE | 2025-07-07 08:45 | PDOC.CMIN ---
Date of service: 07/07/25 Time of Service: 08:46 Care Management Initial Assmt Initial Assessment Reason for Hospitalization: Abdominal pain, cholelithiasis, CARYL, hyponatremia Functional Status/Living Situation Patient Presentation: Bereket was awake and sitting in a recliner when CM met with him. He was pleasant and easily engaged in conversation. He is admitted for abdominal pain and a UTI. CT imaging revealed Cholelithiasis with multiple mobile gallstones and gallbladder sludge. The surgical team is consulting. Bereket was getting ready to eat lunch, which he reports will be his first meal in 4 days. Bereket is retired and resides in [place] with his Rocío. He drives and is independent at baseline. He has 2 daughters that live locally, and 3 children whom live out of state. He denies any SDVA concerns at this time. CM will continue to follow. Town of Residence: [place] Resides with: Spouse (Rocío) Significant Other/Family: Local ( and 2 daughters live locally, also has 3 children that live out of state. ) Natural Supports: Supportive family Employment Status: Retired Instrumental Activities of Daily Living (ADLs): Independent Medications Medication Management: No Issues/Barriers identified Physical Functioning/Mobility Assistive Device: Cane Advance Directives Advance Directives: Do you have an Advance Directive: N 04/28/22, 10:09 AD On File at [facility]: N 04/28/22, 10:09 Date Asked 07/06/25 07/06/25, 17:00 AD Date Reviewed COLST On File at [facility] No 10/14/24, 18:32 COLST Date Scanned Code Status Resuscitation Status Full Code Insurance Coverage/Financial Issues Insurance: Medicare Part A & B - [id number] Care Team Visit Care Team Role Provider Type Pinky Kilpatrick APRN MD [facility] STAFF PHYSICIAN Jarrod Schultz, ADDISON Primary Care Provider NURSE PRACTITIONER Jessica Reilly RDN, [facility] Other Providers SUPERVISOR REAL ESTATE OFFICE Srinivas Gilliland RDN Other Providers SUPERVISOR REAL ESTATE OFFICE Ángel Ríos MD Other Providers [facility] STAFF PHYSICIAN Radha Herbert, ADDISON Emergency Provider NURSE PRACTITIONER Chauncey Gil Admit Provider NON-[facility] STAFF PHYSICIAN Attending Provider Discharge Potential Discharge Needs: PCP F/U Appt and Surgical F/U Appt Anticipated Barriers to Discharge: None Identified Patient/Family Education Needs: Review discharge instructions, discuss Ask Me Three Transportation: Private vehicle Plan: Plan of care is currently being established. Surgical is consulted. Anticipate, patient will discharge home via private vehicle with family once medically ready to discharge. He will follow up with community providers and continue per his discharge plan of care. CM will support coordination of outpatient services, if indicated. CM will follow. Social Determinants of Health Screening Will the Patient Participate in the Screening?: Declined to provide PFSH All Active Problems (Updated 07/07/25 @ 10:21 by Chauncey Gil) Abdominal pain (Acute) Cholelithiasis (Chronic) UTI (urinary tract infection) (Acute) Acute kidney injury superimposed on chronic kidney disease (Acute) Hyponatremia (Acute) Atrial flutter (Acute) Rash (Acute) MSSA (methicillin susceptible Staphylococcus aureus) infection (Acute ~06/16/24) RT foot s/p amputation Amputation of toe of right foot (Acute ~06/13/24) [facility]- 2nd toe History of transmetatarsal amputation of right foot (Acute ~06/16/24) [facility]- open, completion transmetatarsal amputation of right forefoot (digits 3,4,5) Bilateral lower extremity edema (Acute) Hearing loss (Acute) Gangrene of toe of right foot (Acute) Ischemic ulcer of right foot with fat layer exposed (Acute) Osteomyelitis of right foot (Acute) Diabetes mellitus with foot ulcer due to multiple causes (Acute) Gallstones without obstruction of gallbladder (Acute) BPH (benign prostatic hyperplasia) (Chronic) History of smoking at least 1 pack per day for at least 30 years (Acute) Gouty tophi of hand (Acute) Chronic gouty arthropathy with tophi (Acute) Hyperkalemia (Acute 07/26/14) Hypertension (Chronic) Diabetic peripheral angiopathy (Chronic) Diabetic peripheral neuropathy (Chronic) Chronic pain syndrome (Chronic) low back pain, drug contract at [facility]- PMS and drug screen on 08/1221-patient on chronic hydrocodone Coronary artery disease involving [place] coronary artery of [place] heart with unstable angina pectoris (Chronic 08/30/17) 08-24-2017 [facility] cardiac CATH: 3 vessel disease (LAD,LCx and RCA): coronary bypass sx pending Dyspnea on exertion (Chronic 12/16/13) negative nuclear stress test echocardiogram: normal/ EF 65%/no valvulopathy Cardiol.eval. : not ischemia related ([facility]) Hyperlipidemia (Chronic) Peripheral autonomic neuropathy in disorders classified elsewhere (Chronic 09/15/14) Right heart failure (Acute) Cellulitis of foot, right (Acute) Hand arthritis (Acute) Chronic kidney disease (CKD) (Chronic) 08/2021- Cr 1.7 Diabetes mellitus type 2, insulin dependent (Acute) with nephropathy Obesity (Chronic) Gout (Chronic) 08/2021-diagnosed by rheumatology at [facility]-probable gout tophi of hands Edema (Acute) Diabetic retinopathy (Acute ~12/2021) B/L MODERATE-01/17 Leg wound, left (Acute) Diabetic foot infection (Acute) Cellulitis (Acute) Chronic foot ulcer (Acute) Nail dystrophy (Acute) Peripheral arterial disease (Acute) Acute Lyme disease (Acute) Elevated troponin (Acute) Erythema migrans (Lyme disease) (Acute) Gram-positive cocci bacteremia (Acute) Acute kidney injury superimposed on chronic kidney disease (Acute) Staphylococcus aureus bacteremia (Acute) Gouty arthritis of hand (Acute) Chronic acquired lymphedema (Acute) Bilateral lower extremities Chronic venous stasis dermatitis (Acute) Bilateral lower extremities Chronic venous insufficiency of lower extremity (Acute) Bilateral lower extremities Diabetic ulcer of toe of left foot (Acute) Diabetic ulcer of right foot associated with diabetes mellitus due to underlying condition (Acute) Obesity, morbid, BMI 40.0-49.9 (Acute) Lightheadedness (Acute) Weakness (Acute) Ulcer of left foot with bone involvement without evidence of necrosis (Acute) Hyponatremia (Acute) Chronic ulcer of left foot (Acute) Pancytopenia (Acute) Iron deficiency anemia (Acute) Medical History (Updated 07/07/25 @ 10:21 by Chauncey Gil) Palliative care encounter Toe osteomyelitis, right s/p amputation. Pseudomonas osteomyelitis 6wk IV Ceftazidime per ID Amputation of toe Congestive heart failure TIA (transient ischemic attack) Proliferative diabetic retinopathy of both eyes without macular edema associated with diabetes mellitus due to underlying condition (01/18/18) 01/18/18-[facility] 01/31/19-[facility] Stroke (~2008) Obesity DM (diabetes mellitus) Laceration of lower leg with foreign body Diabetic foot ulcer Lymphedema Scrotal hematoma (07/26/14) A. S/p hydrocelectomy 07/24/14 Surgical History 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 secondary to diabetic ulcer, angiopathy S/P femoral-popliteal bypass surgery right. 03/2020 History of cataract removal with insertion of prosthetic lens History of hydrocelectomy (07/24/14) right S/P CABG x 3 (08/30/17) [facility] 08-29-2017 : no fup needed H/O surgical procedure A. Hydrocelectomy 07/24/2014 Family History Mother No problems noted. Father Diabetes Myocardial infarction Heart disease Sister Diabetes Social History Smoking/Tobacco Use Status: Former Tobacco Use Quit Date: 09/28/83 Tobacco: How many years used: 5 Smoking risk assessment performed?: Yes Alcohol Intake: current Alcohol Intake frequency: holidays/special occasions only Drug use: Occasionally Substance use type: marijuana Housing: house Pets and animals: Yes Pets and animals: cat(s) and dog(s) What type of physical activity do you participate in: none Do you feel safe at home: Yes Do you feel safe in your relationship?: Yes
--- NOTE | 2025-07-07 09:00 | DI.US_ITS ---
APPROVED REPORT EXAM: Comprehensive 2D, Doppler, and color-flow Echocardiogram Patient Location: In-Patient Room/Bed: 214 Computer Assembler: Marycruz King RDCS (AE) Indications: CHF with CARYL secondary to GI loss Other Information Study Quality: Fair. Technically limited study due to body habitus. Conclusion Normal left ventricular wall thickness and chamber size. Ejection fraction is 50%. No segmental wall motion abnormalities are noted. Patient is in atrial fibrillation with [id number] variation Right ventricle is not well-visualized but does not appear significantly enlarged Mildly dilated left atrium. Normal right atrial size Aortic valve is sclerotic without stenosis or regurgitation Thickened mitral leaflets, mitral annular calcification, trace mitral regurgitation Mild tricuspid regurgitation with an estimated right ventricular systolic pressure of 35 mmHg Ascending aorta measures 3.57 cm Wall motion Left Ventricle The left ventricle is normal size. Left ventricular systolic function is low normal range. There is normal left ventricular wall thickness. There is normal LV segmental wall motion. There is no ventricular septal defect visualized. LVEF is 50%. Right Ventricle Right ventricle is not well visualized. Right ventricular systolic function could not be assessed. Atria Left atrium is moderately dilated. The right atrium size is normal. The interatrial septum is intact with no evidence for an atrial septal defect. Aortic Valve The Aortic valve is sclerotic. Number of aortic valve leaflets could not be assessed. There is no aortic valvular stenosis. No aortic regurgitation is present. Mitral Valve Mitral valve leaflets are mildly thickened. Mild mitral annular calcification. No evidence of mitral valve stenosis. Trace mitral regurgitation. Tricuspid Valve The tricuspid valve is normal in structure. There is no tricuspid valve stenosis. Mild tricuspid regurgitation. The RVSP is 34.9 mmHg. Pulmonic Valve The pulmonary valve is normal in structure. There is no pulmonic valvular stenosis. There is no pulmonic valvular regurgitation. Great Vessels The aortic root is normal in size. The ascending aorta is mildly dilated. Aortic arch is not well visualized. IVC is normal in size and collapses >50% with inspiration. Pericardium There is no pericardial effusion. 2D Dimensions IVSD d PLAX 1.20 cm M: 0.6-1.2 Ao Root d 3.00 cm M: 3.1 - 3.7 LVPW d PLAX 1.21 cm M: 0.6 - 1.2 Ao Asc Diam d 3.57 cm M: 2.6 - 3.4 LVID d PLAX 5.50 cm M: 4.2 - 5.8 LVDs 4.02 cm M: 2.5 - 4.0 LV EF Teichholz 51.8 % FS 26.83 % LV EDV (Teich) 146.8 mL LV ESV (Teich) 70.7 mL Auto EF LV EDV A4C 160.8 mL LV EDV A2C 176.5 mL LV EDV BP 166.6 mL LV ESV A4C 80.8 mL LV ESV A2C 88.2 mL LV ESV BP 84.1 mL LVEF(%) A4C 49.8 % LVEF(%) A2C 50.0 % LVEF(%) BP 49.5 % LV SV A4C 80.0 ml LV SV A2C 88.3 ml LV SV BP 82.5 ml LV CO A4C 7.5 L/min LV CO A2C 6.8 L/min LV CO BP 7.2 L/min HR A4C 94.00 BPM HR A2C 77.42 BPM LV EDV Index (BP) LA Volume LA Length A4C 5.9 cm LA Length A2C 5.7 cm LA Area A4C s 24.01 cm2 LA Area A2C s 26.01 cm2 LA Vol A4C A-L 83.18 mL LA Vol A2C A-L 100.49 mL LA Vol Biplane A- L 92.8 mL LA Vol/BSA A4C A-L LA Vol/BSA A2C A-L LA Vol/BSA BP A-L 40.5 mL/m2 LA Vol A4C MOD 79.0 mL LA Vol A2C MOD 91.3 mL LA Vol BP MOD 85.6 mL RA Volume RA Area A4C 16.7 cm2 RA ESV A4C (A-L) 44.0mL RA Vol/BSA A4C A-L RA Length A4C 5.4 cm RA ESV A4C (MOD) 43.0mL LV Diastology MV E' lateral 0.088 (>0.1 m/s) MV E Vmax 1.31 (0.4-1.3 m/s) MV E/E' LAT 14.79 (<14) MV A Vmax 0.00 (0.4-1.3 m/s) E/A Ratio 0.0 Aortic Valve AoV Vmax 1.87 m/s LVOT Vmax 1.00 m/s AoV Peak Grad 14.0 mmHg LVOT Peak Grad 4.0 mmHg AoV Area (Vmax) 1.85 cm2 LVOT VTI 0.181 m AoV VTI 0.421 m LVOT Mean Grad 2.3 mmHg AoV Mean Sher. 1.42 m/s LVOT SV 62.76 mL AoV Mean Grad 8.9 mmHg LVOT Diam s 2.10 cm AoV Area (VTI) 1.49 cm2 AV Regurg Peak Gr. 14.01 mmHg Velocity Ratio 0.53 Mitral Valve MV DT 291 (160-240 msec) MV Vmax TIPS 1.29 m/s MV Mean Grad 2.3 (<2mmHg) MV VTI 0.335 m Pulmonary Valve PV Vmax 1.12 (0.5-1.5 m/s) RVOT Vmax 1.03 m/s PV Peak Grad 5.1 mmHg RVOT Peak Gr. 4.2 mmHg PV Mean Sher 0.69 m/s RVOT VTI 0.143 m PV Mean Grad 2.3 mmHg RVOT Mean Gr. 1.7 mmHg Tricuspid Valve RA Pressure 3.00 mmHg TR Vmax 2.82 m/s TR Peak Grad 31.8 mmHg RVSP (TR) 34.9 mmHg
--- NOTE | 2025-07-07 10:03 | PGE_ITS ---
Date of Service Date of service: 07/07/25 Time of Service: 15:24 Assessment and Plan Assessment and plan (1) Abdominal pain: Start date: 07/06/25 Status: Acute Assessment and plan: Presenting with ABD pain , nausea/ vomiting 2-[address] iamging positive for :multiple gallstones measuring up to 7 mm size. Most are at level of gallbladder neck but there are 2 calculi within the cystic duct Normal LFT's and lipase , leukocytosis Surgical consult: No recommendation for surgical intervention at this time s/p ABD US Abdominal US : Cholelithiasis with multiple mobile gallstones and gallbladder sludge. No sonographic evidence to suggest acute cholecystitis. PRN IV compazine Heart healthy diet (2) Cholelithiasis: Status: Chronic Assessment and plan: As per above (3) (HFpEF) heart failure with preserved ejection fraction: Status: Acute Assessment and plan: On home medicine regimen [id number] from 3193 in 2022 CHF exacerbation considered but IVC is non-plethoric - Could CARYL on CKD be d/t vascular renal bed congestion? Moreover A-flutter on EKG Echocardiogram conclusion : Conclusion Normal left ventricular wall thickness and chamber size. Ejection fraction is 50%. No segmental wall motion abnormalities are noted. Patient is in atrial fibrillation with [id number] variation Right ventricle is not well-visualized but does not appear significantly enlarged Mildly dilated left atrium. Normal right atrial size Aortic valve is sclerotic without stenosis or regurgitation Thickened mitral leaflets, mitral annular calcification, trace mitral regurgitation Mild tricuspid regurgitation with an estimated right ventricular systolic pressure of 35 mmHg Ascending aorta measures 3.57 cm IVC is normal in size and collapses >50% with inspiration. (4) Acute kidney injury superimposed on chronic kidney disease: Start date: 07/06/25 Status: Acute Assessment and plan: LR at 125 cc/hr rate down to 100 cc/hr BUN & Cr : on admission 79/5.7 now 82/5.6 Labs in AM If Cr does not improve or sings of fluid overload In the setting of point 3 consider diuresising Ongoing renal dosing of medicines Allopurinol dosing adjusted w uric acid at 5.5- resume home dose as per CrCl hold loasartan (5) UTI (urinary tract infection): Start date: 07/06/25 Status: Acute Assessment and plan: On IV levaquin renal dosing- Fosfomycin received in the ED Urine Cx pending (6) Hyponatremia: Start date: 07/06/25 Status: Acute Assessment and plan: LR at 100 cc/hr Labs in AM (7) Chronic back pain: Assessment and plan: PRN APAP and home medicine regimen (8) Atrial flutter by electrocardiogram: Status: Acute Assessment and plan: As per EKG in the setting of HFpEF 05/08/2023 aslo seen briefly on EKG - no further mention On home dose coreg Eliquis initiated [id number] > 7/9 ( 11.2%), no reported previous GIB, brain bleed- HAS-BLED 4 points ( 8.70%) Outpatient cardiaology f/u (9) BPH (benign prostatic hyperplasia): Status: Chronic Assessment and plan: Now on flomax Kahnna on place voiding trial in 48 houirs/p flomax intitiation outpatient urologyf/u (10) Hypertension: Status: Chronic Assessment and plan: On home CCB (11) DM (diabetes mellitus): Assessment and plan: Gluc AC & HS with AC SSI coverage discussed with Dr. Chapin Subjective Subjective Patient reports: no new complaints, pain is less, tolerating liquids well, tolerating a regular diet, voiding w/o difficulty (khanna), flatus and nausea; denies diarrhea, vomiting, shortness of breath or fever Exam Narrative Exam Narrative: Alert and oriented X 4, no acute distress, neurologically intact, S1, S2, irregular, A-flutter HR 76 on telemetry, Abdomen is large,round minimally distended , no fluid wave, soft and non-tender to palpation, moves all 4 ext, congruent mood and affect Objective Last Vital Signs Temp 36.5 C 07/07/25 07:54 Pulse 79 07/07/25 07:54 Resp 17 07/07/25 07:54 BP 128/78 07/07/25 07:54 Pulse Ox 92 07/07/25 07:54 Laboratory Results - last 24 hr 07/06/25 07/06/25 07/06/25 17:28 18:55 19:34 WBC 14.49 H RBC 4.10 L Hgb 12.6 L Hct 35.7 L MCV 87 MCH 30.7 MCHC 35.3 RDW 13.0 Plt Count 157 MPV 10.4 Immature Gran % 0.6 Neutrophils % 88.5 Lymphocytes % 1.5 Monocytes % 8.6 Eosinophils % 0.6 Basophils % 0.2 Nucleated RBC % 0.0 Absolute Neutrophils 12.82 H Absolute Lymphocytes 0.22 L Absolute Monocytes 1.25 H Absolute Eosinophils 0.09 Absolute Basophils 0.03 PT 10.2 INR 1.0 Sodium 122 L* 124 L* Potassium 4.0 4.0 Chloride 83 L 86 L Carbon Dioxide 26.4 26.9 Anion Gap 12.6 H 11.1 H BUN 78 H 79 H Creatinine 5.9 H* 5.7 H* Est GFR (CKD-EPI 2020) 9.68 10.09 Glucose 188 H 166 H Calcium 8.6 8.2 L Magnesium 2.2 Total Bilirubin 0.7 AST 42 H ALT 43 Alkaline Phosphatase 163 H Troponin I 469 H* 430 H* NT-Pro-B Natriuret Pep 18888 H Total Protein 6.8 Albumin 2.8 L Lipase 24 Urine Color Yellow Urine Clarity Sl Cloudy Urine pH 5.0 Ur Specific Exmore 1.010 Urine Protein 100 H Urine Ketones Negative Urine Blood Moderate H Urine Nitrite Negative Urine Bilirubin Negative Urine Urobilinogen 0.2 Ur Leukocyte Esterase Small H Urine RBC Not Applicable Urine WBC >50 H Ur Epithelial Cells Not Applicable Urine Crystals Not Applicable Urine Bacteria Not Applicable Urine Mucus Not Applicable Ur Culture Indicated? Yes Urine Glucose 500 H Urine Opiates Screen Positive A Urine Methadone Screen Negative Ur Barbiturates Screen Negative Ur Tricyclics Screen Negative Ur Amphetamines Screen Negative U Benzodiazepines Scrn Negative Urine Cocaine Screen Negative Ur THC Screen Positive A COVID-19 Source SARS-CoV-2 (PCR) Influenza Type A (PCR) Influenza Type B (PCR) RSV (PCR) 07/06/25 07/06/25 07/07/25 20:58 23:02 05:52 WBC 11.63 H RBC 3.58 L Hgb 10.9 L Hct 31.4 L MCV 88 MCH 30.4 MCHC 34.7 RDW 13.1 Plt Count 134 MPV 10.4 Immature Gran % Neutrophils % Lymphocytes % Monocytes % Eosinophils % Basophils % Nucleated RBC % Absolute Neutrophils Absolute Lymphocytes Absolute Monocytes Absolute Eosinophils Absolute Basophils PT INR Sodium 125 L Potassium 3.9 Chloride 88 L Carbon Dioxide 23.0 Anion Gap 14.0 H BUN 82 H* Creatinine 5.6 H* Est GFR (CKD-EPI 2020) 10.31 Glucose 126 H Calcium 8.3 L Magnesium 2.2 Total Bilirubin 0.6 AST 41 H ALT 36 Alkaline Phosphatase 147 H Troponin I 422 H* 363 H* NT-Pro-B Natriuret Pep Total Protein 5.8 L Albumin 2.3 L Lipase Urine Color Urine Clarity Urine pH Ur Specific [place]more Urine Protein Urine Ketones Urine Blood Urine Nitrite Urine Bilirubin Urine Urobilinogen Ur Leukocyte Esterase Urine RBC Urine WBC Ur Epithelial Cells Urine Crystals Urine Bacteria Urine Mucus Ur Culture Indicated? Urine Glucose Urine Opiates Screen Urine Methadone Screen Ur Barbiturates Screen Ur Tricyclics Screen Ur Amphetamines Screen U Benzodiazepines Scrn Urine Cocaine Screen Ur THC Screen COVID-19 Source Nasopharynx SARS-CoV-2 (PCR) Negative Influenza Type A (PCR) Negative Influenza Type B (PCR) Negative RSV (PCR) Negative Time Spent with Patient Time Spent with Patient: >50 minutes Time was spent: preparing to see the patient(eg.review tests), obtaining and/or reviewing separately otained hiistory, ordering medications,tests, procedures, referring, communicating with other health child care team lead, indepentently interpreting results, counseling the patient, care coordination and other
[2025-07-07] MEDS: Carvedilol 3.125 MG TAB PO (10:17)
[2025-07-07] MEDS: amLODIPine 10 MG TAB PO (10:18)
[2025-07-07] MEDS: Gabapentin 100 MG CAP 200 MG PO ×3 (10:22→20:11)
[2025-07-07] MEDS: Losartan 25 MG TAB PO (10:24)
[2025-07-07] MEDS: Normal Saline Flush 10 ML SYR IVP ×2 (10:25→20:12)
[2025-07-07] MEDS: Ketoconazole 2% CREAM 15 GM TUBE TP (10:49)
[2025-07-07 12:44] LABS: Lab Add On Test DONE
[2025-07-07 12:57] LABS: Uric Acid 5.5 mg/dL (3.5-7.2)
--- NOTE | 2025-07-07 13:02 | AC.ASSESS ---
Asthma Clinic Visit
--- NOTE | 2025-07-07 13:02 | CHAPLAIN ---
Bereket was up in the chair when I visited. He was pleasant and engaged in a conversation. He's in touch with family. I explained my role and offered support.
[2025-07-07] MEDS: Prochlorperazine 10 MG/2 ML VIAL 5 MG IVP (13:23)
--- NOTE | 2025-07-07 14:09 | PT.INIE ---
PT Notes Visit Reasons: Abdominal pain,Cholelithiasis CARYL, Hyponatremia... Inpatient Physical Therapy Evaluation Date: 07/07/25 Referring Doctor: Pinky Kilpatrick NP PT Orders: PT CONSULT: eval for AD, safety consult for D/C Precautions: fall, standard Patient Profile/Admitting Diagnosis: Bereket is a 70 year old male referred for PT evaluation and treatment in acute care setting, where he is being medically managed for abdominal pain, cholelithiasis, CARYL and UTI. PMH also significant for DM with peripheral neuropathy (s/p amputation of all digits of right foot, 5th digit left foot). Social History/Home Situation: Bereket lives in a private home with his and 22 year old grandson. He typically ambulates independently, often with a cane. Owns an FWW, but does not utilize at baseline. Equipment Owned/DME: Cane, FWW Subjective: Bereket is agreeable to PT consultation. Reports ongoing abdominal and back pain, and discomfort from his catheter. Objective: General Observation: Resting in chair with White catheter in place, IV in RUE Mental Status: A&O x 3 Vital Signs: Monitored by nursing ROM: Right Upper Extremity: WFL Left Upper Extremity: WFL Right Lower Extremity: WFL Left Lower Extremity: WFL Strength: Right Upper Extremity: Shoulder flexion 4+/5. Biceps 5/5. Triceps 4+/5. Left Upper Extremity: Shoulder flexion 4+/5. Biceps 5/5. Triceps 4+/5. Right Lower Extremity: Hip flexion 5/5. Quads 5/5. Ankle dorsiflexion 5/5. Left Lower Extremity: Hip flexion 5/5. Quads 5/5. Ankle dorsiflexion 5/5. Sensation: Unable to identify light touch to plantar aspects of either foot Bed Mobility/Transfers: Sit?stand: SBA Stand?sit: SBA Gait: Ambulates 75 feet with FWW, CGA. Limited by increasing abdominal pain. Maintains wide base of support and shuffling gait pattern. Balance: Static Sitting: Normal Dynamic Sitting: Good Static Standing: Good Dynamic Standing: Fair Special Tests: Mobility Limitations Standardized Measure [facility] AM-PAC 6 clicks Basic Mobility Inpatient Short Form: Raw Score: 20 CMS Score: 36% impairment Informed Consent/Education: Patient instructed in purpose of PT consult and plan of care. Assessment: Patient is a 70 year old male referred to physical therapy services in acute care setting, where he is being managed for abdominal pain, cholelithiasis and UTI. Patient presents with mobility impairments related to acute medical issues, and requires skilled PT intervention to maximize mobility and safety and allow for safe transition back home once medically stable. He currently demonstrates the following impairment level findings: 1. Decreased activity tolerance 2. Unable to ambulate without assistive device 3. Gait impairments 4. Diminished sensation bilateral feet due to peripheral neuropathy Impairments are contributing to the following functional limitations: 1.Decreased activity tolerance 2. Increased risk for falls 3. Requiring increased support to assistive device versus baseline Patient is assessed as Low 07605 complexity based on the following: History: as above Examination: as above Presentation: evolving due to acute medical status Decision Making: low Goals: Goals X1 week 1. Supine-Sit : supervision 2. Sit-Supine : supervision 3. Sit-Stand : supervision 4. Stand-Sit : supervision 5. Bed-Chair : supervision with FWW 6. Chair-Bed : supervision with FWW 7. Gait : supervision with FWW Plan of Care/Treatment Plan: 1-2x/day, 7 days/week x 1 week. Plan of care has been reviewed with the RISK CONTROL MANAGER providing the service under Physical Therapy direction. Initiate Physical Therapy intervention for strengthening, bed mobility, transfers, gait, stairs, balance training, use of assistive device. DISCHARGE RECOMMENDATIONS: Home with outpatient PT TREATMENT CODE/TIME: [id number] ([id number]) Julia Gifford, PT, DPT [facility] All Active Problems (Updated 07/07/25 @ 10:21 by Chauncey Gil) Abdominal pain (Acute) Cholelithiasis (Chronic) UTI (urinary tract infection) (Acute) Acute kidney injury superimposed on chronic kidney disease (Acute) Hyponatremia (Acute) Atrial flutter (Acute) Rash (Acute) MSSA (methicillin susceptible Staphylococcus aureus) infection (Acute ~06/16/24) RT foot s/p amputation Amputation of toe of right foot (Acute ~06/13/24[place] [facility] [place] History of transmetatarsal amputation of right foot (Acute ~06/16/24) [facility] [place] completion transmetatarsal amputation of right forefoot (digits 3,4,5) Bilateral lower extremity edema (Acute) Hearing loss (Acute) Gangrene of toe of right foot (Acute) Ischemic ulcer of right foot with fat layer exposed (Acute) Osteomyelitis of right foot (Acute) Diabetes mellitus with foot ulcer due to multiple causes (Acute) Gallstones without obstruction of gallbladder (Acute) BPH (benign prostatic hyperplasia) (Chronic) History of smoking at least 1 pack per day for at least 30 years (Acute) Gouty tophi of hand (Acute) Chronic gouty arthropathy with tophi (Acute) Hyperkalemia (Acute 07/26/14) Hypertension (Chronic) Diabetic peripheral angiopathy (Chronic) Diabetic peripheral neuropathy (Chronic) Chronic pain syndrome (Chronic) low back pain, drug contract at [facility]-V PMS and drug screen on 08/1221-patient on chronic hydrocodone Coronary artery disease involving [place] coronary artery of [place] heart with unstable angina pectoris (Chronic 08/30/17) 08-24-2017 [facility] [place]: 3 vessel disease (LAD,LCx and RCA): coronary bypass sx pending Dyspnea on exertion (Chronic 12/16/13) negative nuclear stress test echocardiogram: normal/ EF 65%/no valvulopathy Cardiol.eval. : not ischemia related ([facility]) Hyperlipidemia (Chronic) Peripheral autonomic neuropathy in disorders classified elsewhere (Chronic 09/15/14) Right heart failure (Acute) Cellulitis of foot, right (Acute) Hand arthritis (Acute) Chronic kidney disease (CKD) (Chronic) 08/2021- Cr 1.7 Diabetes mellitus type 2, insulin dependent (Acute) with nephropathy Obesity (Chronic) Gout (Chronic) 08/2021-diagnosed by rheumatology at [facility]-probable gout tophi of hands Edema (Acute) Diabetic retinopathy (Acute ~12/2021) B/L MODERATE-01/17 Leg wound, left (Acute) Diabetic foot infection (Acute) Cellulitis (Acute) Chronic foot ulcer (Acute) Nail dystrophy (Acute) Peripheral arterial disease (Acute) Acute Lyme disease (Acute) Elevated troponin (Acute) Erythema migrans (Lyme disease) (Acute) Gram-positive cocci bacteremia (Acute) Acute kidney injury superimposed on chronic kidney disease (Acute) Staphylococcus aureus bacteremia (Acute) Gouty arthritis of hand (Acute) Chronic acquired lymphedema (Acute) Bilateral lower extremities Chronic venous stasis dermatitis (Acute) Bilateral lower extremities Chronic venous insufficiency of lower extremity (Acute) Bilateral lower extremities Diabetic ulcer of toe of left foot (Acute) Diabetic ulcer of right foot associated with diabetes mellitus due to underlying condition (Acute) Obesity, morbid, BMI 40.0-49.9 (Acute) Lightheadedness (Acute) Weakness (Acute) Ulcer of left foot with bone involvement without evidence of necrosis (Acute) Hyponatremia (Acute) Chronic ulcer of left foot (Acute) Pancytopenia (Acute) Iron deficiency anemia (Acute) Medical History (Updated 07/07/25 @ 10:21 by Chauncey Gil) Palliative care encounter Toe osteomyelitis, right s/p amputation. Pseudomonas osteomyelitis 6wk IV Ceftazidime per ID Amputation of toe Congestive heart failure TIA (transient ischemic attack) Proliferative diabetic retinopathy of both eyes without macular edema associated with diabetes mellitus due to underlying condition (01/18/18) 01[place]18/[place] [place] (~2008) Obesity DM (diabetes mellitus) Laceration of lower leg with foreign body Diabetic foot ulcer Lymphedema Scrotal hematoma (07/26/14) A. S/p hydrocelectomy 07/24/14 Surgical History 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 secondary to diabetic ulcer, angiopathy S/P femoral-popliteal bypass surgery right. 03/2020 History of cataract removal with insertion of prosthetic lens History of hydrocelectomy (07/24/14) right S/P CABG x 3 (08/30/17[place] [facility] [place] no fup needed H/O surgical procedure A. Hydrocelectomy 07/24/2014
[2025-07-07] MEDS: Apixaban 5 MG TAB PO ×2 (14:28→20:09)
[2025-07-07] MEDS: Tamsulosin 0.4 MG CAPCR PO (14:28)
[2025-07-07] MEDS: Allopurinol 100 MG TAB 50 MG PO (18:16)
[2025-07-07] MEDS: Milk of Magnesia 30 ML CUP PO (20:08)
[2025-07-07] MEDS: Pregabalin 25 MG CAP PO (20:09)
[2025-07-07] MEDS: Rosuvastatin 20 MG TAB 40 MG PO (20:11)
[2025-07-07] MEDS: Lidocaine 5% Patch 2 PATCH TP (22:11)
[2025-07-08 03:02] VITALS: BP 120/67; PULSE 60; RESP 16; TEMP 36.7; O2SAT 97
[2025-07-08] MEDS: Lactated Ringers 1,000 ML 125 ML IV ×2 (03:33→13:06)
[2025-07-08 06:51] LABS: HCT 31.5 % (40.0-50.0); HGB 10.8 g/dL (13.5-17.5); MCH 30.3 pg (27.0-33.0); MCHC 34.3 % (32.0-36.0); MCV 88 fL (80-95); MPV 10.7 fL (8.0-11.0); Platelet Count 135 10^3/uL (130-400); RBC 3.57 10^6/uL (4.36-5.78); RDW 13.3 % (11.8-14.1); RDW-SD 43.2 fL; WBC 8.65 10^3/uL (4.4-10.8)
[2025-07-08 07:13] LABS: ALT 37 U/L (16-63); AST 31 U/L (15-37); Albumin 2.2 g/dL (3.4-5.0); Alkaline Phosphatase 197 U/L (46-116); Anion Gap 9.5 mmol/L (3-11); Bilirubin, Total 0.5 mg/dL (0.2-1.0); CO2 27.5 mmol/L (21.0-32.0); Calcium 8.2 mg/dL (8.5-10.1); Chloride 92 mmol/L (98-107); Estimated GFR 11.01 (mL/min/1.73m2); Glucose 173 mg/dL (74-106); Magnesium 2.3 mg/dL (1.8-2.4); Potassium 3.6 mmol/L (3.5-5.1); Sodium 129 mmol/L (136-145); Total Protein 5.8 g/dL (6.4-8.2)
[2025-07-08 07:15] LABS: BUN 83 mg/dL (7-18)
[2025-07-08 07:22] VITALS: BP 142/55; PULSE 71; RESP 17; TEMP 36.7; O2SAT 94
[2025-07-08] MEDS: Apixaban 5 MG TAB PO ×2 (08:37→20:08)
[2025-07-08] MEDS: Sertraline 50 MG TAB PO (08:37)
[2025-07-08] MEDS: Lactobacillus Acidophilus CAP 1 CAP PO (08:37)
[2025-07-08] MEDS: Pregabalin 25 MG CAP PO ×2 (08:37→20:08)
[2025-07-08] MEDS: Clopidogrel 75 MG TAB PO (08:37)
[2025-07-08] MEDS: Cholecalciferol (Vitamin D3) 1,000 UNIT TAB 2000 UNITS PO (08:38)
[2025-07-08] MEDS: Tamsulosin 0.4 MG CAPCR PO (08:38)
[2025-07-08] MEDS: Gabapentin 100 MG CAP 200 MG PO ×3 (08:38→20:08)
[2025-07-08] MEDS: Ezetimibe 10 MG TAB PO (08:38)
[2025-07-08] MEDS: Insulin Aspart 300 UNITS/3 ML PEN SC ×4 (08:44→21:38)
[2025-07-08] MEDS: Normal Saline Flush 10 ML SYR IVP ×2 (08:46→20:09)
[2025-07-08] MEDS: Ketoconazole 2% CREAM 15 GM TUBE TP (08:46)
[2025-07-08] MEDS: Patch Removal 2 EACH TP (09:00)
[2025-07-08] MEDS: Carvedilol 3.125 MG TAB PO (09:32)
[2025-07-08 10:57] VITALS: BP 135/58; PULSE 62; RESP 17; TEMP 36.5; O2SAT 94
[2025-07-08] MEDS: Acetaminophen 325 MG TAB 650 MG PO (11:57)
[2025-07-08] MEDS: Polyethylene Glycol 3350 17 GM PACKET PO (14:02)
--- NOTE | 2025-07-08 14:50 | PT.INTREAT ---
PT Notes Visit Reasons: Abdominal pain,Cholelithiasis CARYL, Hyponatremia... Inpatient Physical Therapy Treatment Note [facility] Date: 07/08/25 PRECAUTIONS:fall, standard SUBJECTIVE: Bereket states that he's feeling much better today. He's hopeful that he will be able to return home tomorrow. OBJECTIVE: ? Sit-stand: supervision? Stand-sit: supervision ? Therapeutic Exercises (63896n2): Direct one-on-one instruction in therapeutic exercises to develop strength, endurance, range of motion and flexibility. ? Exercises ? sit-stand 4x (d/c due to discomfort at catheter) standing march 10x with UE support to FWW static standing without UE support, SBA, 60 seconds standing unsupported with trunk rotation 10x each side standing unsupported with shoulder flexion 10x each side Ambulation ? Assistive Device: FWW? Weight bearing: WBAT Assist: SBA, assist for management of lines ? Distance:? 120' ? Deviation: no GIBSON ? ASSESSMENT:? Improving activity tolerance, and reduced reliance on support to FWW. PLAN: Continue progressing as tolerated. TREATMENT CODE/TIME: [id number] ([id number]) DISCHARGE RECOMMENDATION: Home with outpatient PT
--- NOTE | 2025-07-08 15:22 | W.PM.PROGNOT ---
Date of Service Date of service: 07/08/25 Time of Service: 15:22 Assessment and Plan Assessment and plan (1) Abdominal pain: Status: Acute Assessment and plan: Presenting with ABD pain , nausea/ vomiting 2-[address] iamging positive for :multiple gallstones measuring up to 7 mm size. Most are at level of gallbladder neck but there are 2 calculi within the cystic duct Normal LFT's and lipase , leukocytosis Surgical consult: No recommendation for surgical intervention at this time s/p ABD US Abdominal US : Cholelithiasis with multiple mobile gallstones and gallbladder sludge. No sonographic evidence to suggest acute cholecystitis. PRN IV compazine Heart healthy diet (2) Cholelithiasis: Status: Chronic Assessment and plan: As per above (3) (HFpEF) heart failure with preserved ejection fraction: Status: Acute Assessment and plan: On home medicine regimen BNP:[id number] from 3193 in 2022 CHF exacerbation considered but IVC is non-plethoric - Could CRAYL on CKD be d/t vascular renal bed congestion? Moreover A-flutter on EKG Echocardiogram conclusion : Conclusion Normal left ventricular wall thickness and chamber size. Ejection fraction is 50%. No segmental wall motion abnormalities are noted. Patient is in atrial fibrillation with [id number] variation Right ventricle is not well-visualized but does not appear significantly enlarged Mildly dilated left atrium. Normal right atrial size Aortic valve is sclerotic without stenosis or regurgitation Thickened mitral leaflets, mitral annular calcification, trace mitral regurgitation Mild tricuspid regurgitation with an estimated right ventricular systolic pressure of 35 mmHg Ascending aorta measures 3.57 cm IVC is normal in size and collapses >50% with inspiration. (4) Acute kidney injury superimposed on chronic kidney disease: Status: Acute Assessment and plan: LR at 125 cc/hr rate down to 100 cc/hr BUN & Cr : on admission 79/5.7 now 82/5.6 Labs in AM If Cr does not improve or sings of fluid overload In the setting of point 3 consider diuresising Ongoing renal dosing of medicines Allopurinol dosing adjusted w uric acid at 5.5- resume home dose as per CrCl hold loasartan (5) UTI (urinary tract infection): Status: Acute Assessment and plan: On IV levaquin renal dosing- Fosfomycin received in the ED Urine Cx pending (6) Hyponatremia: Status: Acute Assessment and plan: LR at 100 cc/hr Labs in AM (7) Chronic back pain: Assessment and plan: PRN APAP and home medicine regimen (8) Atrial flutter by electrocardiogram: Status: Acute Assessment and plan: As per EKG in the setting of HFpEF 05/08/2023 aslo seen briefly on EKG - no further mention On home dose coreg Eliquis initiated [id number] > 7/9 ( 11.2%), no reported previous GIB, brain bleed- HAS-BLED 4 points ( 8.70%) Outpatient cardiaology f/u (9) BPH (benign prostatic hyperplasia): Status: Chronic Assessment and plan: Now on flomax Khanna on place voiding trial in 48 houirs/p flomax intitiation outpatient urologyf/u (10) Hypertension: Status: Chronic Assessment and plan: On home CCB (11) DM (diabetes mellitus): Assessment and plan: Gluc AC & HS with AC SSI coverage discussed with Dr. Chapin Subjective Subjective Patient reports: no new complaints, feels better, tolerating liquids well, tolerating a regular diet, voiding w/o difficulty (khanna to gravity draining well, clear yellow urine) and afebrile; denies bowel movement Exam Narrative Exam Narrative: Obese male of stated age no acute distress chronically ill-appearing head is atraumatic eyes nonicteric noninjected oral mucosa is moist neck is supple full range of motion cardiovascular irregular rate and rhythm respirations even and unlabored abdomen round nontender Khanna to gravity draining clear yellow urine moves all extremities equally he sitting up in the chair he is awake alert responding appropriately psychiatric appropriate mood and affect Objective Last Vital Signs Temp 36.5 C 07/08/25 10:57 Pulse 62 07/08/25 10:57 Resp 17 07/08/25 10:57 BP 135/58 L 07/08/25 10:57 Pulse Ox 94 07/08/25 10:57 Laboratory Results - last 24 hr 07/08/25 06:13 WBC 8.65 RBC 3.57 L Hgb 10.8 L Hct 31.5 L MCV 88 MCH 30.3 MCHC 34.3 RDW 13.3 Plt Count 135 MPV 10.7 Sodium 129 L Potassium 3.6 Chloride 92 L Carbon Dioxide 27.5 Anion Gap 9.5 BUN 83 H* Creatinine 5.3 H* Est GFR (CKD-EPI 2020) 11.01 Glucose 173 H Calcium 8.2 L Magnesium 2.3 Total Bilirubin 0.5 AST 31 ALT 37 Alkaline Phosphatase 197 H Total Protein 5.8 L Albumin 2.2 L Time Spent with Patient Time Spent with Patient: 35-49 minutes Time was spent: preparing to see the patient(eg.review tests), obtaining and/or reviewing separately otained hiistory, ordering medications,tests, procedures, indepentently interpreting results and counseling the patient
[2025-07-08 15:43] VITALS: BP 112/50; PULSE 67; RESP 16; TEMP 36.7; O2SAT 92
[2025-07-08] MEDS: Rosuvastatin 20 MG TAB 40 MG PO (20:08)
[2025-07-08] MEDS: Lidocaine 5% Patch 2 PATCH TP (20:09)
[2025-07-08 20:26] VITALS: BP 143/66; PULSE 71; RESP 15; TEMP 36.6; O2SAT 95
[2025-07-08] MEDS: levoFLOXacin 500 MG/100 ML BAG 100 MG IVPB (21:38)
[2025-07-09 00:10] VITALS: BP 133/60; PULSE 75; RESP 15; TEMP 36.6; O2SAT 95
[2025-07-09] MEDS: Lactated Ringers 1,000 ML 50 ML IV (05:41)
[2025-07-09 06:59] LABS: HCT 35.0 % (40.0-50.0); HGB 12.2 g/dL (13.5-17.5); MCH 31.7 pg (27.0-33.0); MCHC 34.9 % (32.0-36.0); MCV 91 fL (80-95); MPV 10.1 fL (8.0-11.0); Platelet Count 148 10^3/uL (130-400); RBC 3.85 10^6/uL (4.36-5.78); RDW 13.6 % (11.8-14.1); RDW-SD 45.5 fL; WBC 8.61 10^3/uL (4.4-10.8)
[2025-07-09 07:26] VITALS: BP 129/69; PULSE 74; RESP 18; TEMP 36.6; O2SAT 96
[2025-07-09 07:27] LABS: ALT 36 U/L (16-63); AST 27 U/L (15-37); Albumin 2.3 g/dL (3.4-5.0); Alkaline Phosphatase 222 U/L (46-116); Anion Gap 8.5 mmol/L (3-11); BUN 75 mg/dL (7-18); Bilirubin, Total 0.5 mg/dL (0.2-1.0); CO2 27.5 mmol/L (21.0-32.0); Calcium 8.7 mg/dL (8.5-10.1); Chloride 98 mmol/L (98-107); Estimated GFR 13.77 (mL/min/1.73m2); Glucose 138 mg/dL (74-106); Magnesium 2.5 mg/dL (1.8-2.4); Potassium 4.0 mmol/L (3.5-5.1); Sodium 134 mmol/L (136-145); Total Protein 6.4 g/dL (6.4-8.2)
[2025-07-09] MEDS: Apixaban 5 MG TAB PO ×2 (07:54→19:42)
[2025-07-09] MEDS: Ketoconazole 2% CREAM 15 GM TUBE TP (07:54)
[2025-07-09] MEDS: Clopidogrel 75 MG TAB PO (07:55)
[2025-07-09] MEDS: Pregabalin 25 MG CAP PO ×2 (07:55→19:42)
[2025-07-09] MEDS: Lactobacillus Acidophilus CAP 1 CAP PO (07:55)
[2025-07-09] MEDS: Ezetimibe 10 MG TAB PO (07:55)
[2025-07-09] MEDS: Tamsulosin 0.4 MG CAPCR PO (07:55)
[2025-07-09] MEDS: amLODIPine 10 MG TAB PO (07:55)
[2025-07-09] MEDS: Gabapentin 100 MG CAP 200 MG PO ×3 (07:55→19:43)
[2025-07-09] MEDS: Cholecalciferol (Vitamin D3) 1,000 UNIT TAB 2000 UNITS PO (07:56)
[2025-07-09] MEDS: Normal Saline Flush 10 ML SYR IVP ×2 (07:56→22:00)
[2025-07-09] MEDS: Sertraline 50 MG TAB PO (07:56)
[2025-07-09] MEDS: Patch Removal 2 EACH TP (09:10)
[2025-07-09 10:01] VITALS: PULSE 73
--- NOTE | 2025-07-09 10:26 | PGE_ITS ---
Date of Service Date of service: 07/09/25 Time of Service: 10:26 Assessment and Plan Assessment and plan (1) Abdominal pain: Status: Acute Assessment and plan: Presenting with ABD pain , nausea/ vomiting 2-[address] iamging positive for :multiple gallstones measuring up to 7 mm size. Most are at level of gallbladder neck but there are 2 calculi within the cystic duct- no cholecystitis Abdominal US : Cholelithiasis with multiple mobile gallstones and gallbladder sludge. No sonographic evidence to suggest acute cholecystitis. Normal LFT's and lipase , WBC was 11.45 on admission now normal Surgical consult completed w/o recommendation for surgical intervention s/p ABD US Ongoing PRN IV compazine Continue CHO heart healthy diet (2) Cholelithiasis: Status: Chronic Assessment and plan: As per above (3) (HFpEF) heart failure with preserved ejection fraction: Status: Acute Assessment and plan: On home medicine regimen, lasix 40 mg po not ordered at this time - confirm dose prior to d/c - might have to be held until seen by PCP versus lower dosage BNP:[id number] from 3193 in 2022 CHF exacerbation was considered but IVC is non-plethoric Echocardiogram 07/07/25 Conclusion Normal left ventricular wall thickness and chamber size. LVEF 50%. No segmental wall motion abnormalities are noted. Patient is in atrial fibrillation with [id number] variation Right ventricle is not well-visualized but does not appear significantly enlarged Mildly dilated left atrium. Normal right atrial size Aortic valve is sclerotic without stenosis or regurgitation Thickened mitral leaflets, mitral annular calcification, trace mitral regurgitation Mild tricuspid regurgitation with an estimated right ventricular systolic p ressure of 35 mmHg Ascending aorta measures 3.57 cm IVC is normal in size and collapses >50% with inspiration. Ongoing telemetry (4) Acute kidney injury superimposed on chronic kidney disease: Status: Acute Assessment and plan: Initially LR at 125 cc/hr rate down to 50 cc/hr then stop Encourage oral hydration BUN & Cr : on admission 79/5.7 now 75/4.4 Labs in AM Ongoing renal dosing of medicines Allopurinol dosing adjusted w uric acid at 5.5- resume home dose as per CrCl Continue to hold loasartan (5) UTI (urinary tract infection): Status: Acute Assessment and plan: On IV levaquin renal dosing- Fosfomycin received in the ED Urine Cx still growing pansensitive E coli on 07/09 results - Will downgrade to oral Therapy Will repeat a UA (6) Hyponatremia: Status: Acute Assessment and plan: Na now 134 - IV crystalloid as per CARYL point Labs in AM (7) Chronic back pain: Assessment and plan: Ongoing PRN APAP and home medicine regimen (8) Atrial flutter by electrocardiogram: Status: Acute Assessment and plan: As per EKG in the setting of HFpEF 05/08/2023 aslo seen briefly on EKG - no further mention On home dose coreg Ongoing Eliquis 07/07/10: initiated [id number] > 7/9 ( 11.2%), no reported previous GIB, brain bleed- HAS-BLED 4 points ( 8.70%) Outpatient cardiaology f/u (9) BPH (benign prostatic hyperplasia): Status: Chronic Assessment and plan: Now on flomax Khanna on place voiding trial in 48 houirs/p flomax intitiation outpatient urologyf/u (10) Hypertension: Status: Chronic Assessment and plan: On home CCB (11) DM (diabetes mellitus): Assessment and plan: Gluc AC & HS with AC SSI coverage discussed with Dr. Chapin Subjective Subjective Patient reports: feels better, tolerating liquids well, tolerating a regular diet, voiding w/o difficulty (voiding trial ongoing s/p khanna ), flatus and other (Ambulated in [place] w/o marked fatigue , w cane , feels less tired ); denies still having pain, no bowel movement (last 07/05/25), diarrhea, nausea, vomiting, shortness of breath or fever Exam Narrative Exam Narrative: Obese male aptient looking of stated age in no acute distress Sclera is nonicteric noninjected oral mucosa is moist neck is supple full range of motion cardiovascular telemetry SR heart is regular rate and rhythm respirations even and unlabored , clear lungs to auscultation, abdomen round large, non- distended nontender, soft, No CVA tenderness , moves all extremities equally , RASS : 0 , congruent mood and affect Objective Last Vital Signs Temp 36.6 C 07/09/25 07:26 Pulse 73 07/09/25 10:01 Resp 18 07/09/25 07:26 BP 129/69 07/09/25 07:26 Pulse Ox 96 07/09/25 07:26 Laboratory Results - last 24 hr 07/09/25 06:25 WBC 8.61 RBC 3.85 L Hgb 12.2 L Hct 35.0 L MCV 91 MCH 31.7 MCHC 34.9 RDW 13.6 Plt Count 148 MPV 10.1 Sodium 134 L Potassium 4.0 Chloride 98 Carbon Dioxide 27.5 Anion Gap 8.5 BUN 75 H Creatinine 4.4 H* Est GFR (CKD-EPI 2020) 13.77 Glucose 138 H Calcium 8.7 Magnesium 2.5 H Total Bilirubin 0.5 AST 27 ALT 36 Alkaline Phosphatase 222 H Total Protein 6.4 Albumin 2.3 L Time Spent with Patient Time Spent with Patient: >50 minutes Time was spent: preparing to see the patient(eg.review tests), obtaining and/or reviewing separately otained hiistory, ordering medications,tests, procedures, referring, communicating with other health resident care coordinator, indepentently interpreting results, counseling the patient, care coordination and other
[2025-07-09 10:47] VITALS: BP 115/56; PULSE 74; RESP 20; TEMP 36.2; O2SAT 93
[2025-07-09] MEDS: Insulin Aspart 300 UNITS/3 ML PEN SC ×3 (11:43→22:08)
--- NOTE | 2025-07-09 12:43 | PT.INTREAT ---
PT Notes Visit Reasons: Abdominal Pain,Cholelithiasis CARYL,Hyponatremia,UTI Inpatient Physical Therapy Treatment Note [facility] Date: 07/09/25 PRECAUTIONS:fall, standard SUBJECTIVE: Bereket states that he's feeling well. He is anxious to return home. OBJECTIVE: ? Sit-stand: supervision? Stand-sit: supervision ? Therapeutic Exercises (63297y1): Direct one-on-one instruction in therapeutic exercises to develop strength, endurance, range of motion and flexibility. ? Exercises ? sit-stand 3x standing march 10x with CGA, no UE support static standing without UE support, SBA, 60 seconds standing unsupported with trunk rotation 10x each side standing unsupported with shoulder flexion 20x each side Ambulation ? Assistive Device: cane RUE? Weight bearing: WBAT Assist: SBA, assist for management of lines ? Distance:? 120' ? Deviation: no GIBSON, mild path deviation ? ASSESSMENT:? Improving activity tolerance and balance. Able to transition back to use of cane for ambulation. PLAN: Continue progressing as tolerated. TREATMENT CODE/TIME: [id number] ([id number]) DISCHARGE RECOMMENDATION: Home without services. Recommend outpatient PT, which patient declines.
[2025-07-09 14:35] VITALS: BP 132/64; PULSE 52; RESP 16; TEMP 36.6; O2SAT 95
[2025-07-09] MEDS: Acetaminophen 325 MG TAB 650 MG PO (16:49)
[2025-07-09] MEDS: Rosuvastatin 20 MG TAB 40 MG PO (19:42)
[2025-07-09] MEDS: Insulin Glargine 300 UNITS/3 ML PEN 40 UNITS SC (19:51)
[2025-07-09 20:17] VITALS: BP 158/87; PULSE 57; RESP 15; TEMP 36.6; O2SAT 98
[2025-07-09 20:29] LABS: Glucose 500 mg/dL (Negative)
[2025-07-09 20:37] LABS: RBC 20-50 HPF (0-2)
[2025-07-09 20:38] LABS: C & S Indicated? Yes
[2025-07-09] MEDS: Lidocaine 5% Patch 2 PATCH TP (21:58)
[2025-07-10 00:28] VITALS: BP 138/74; PULSE 73; RESP 15; TEMP 36.6; O2SAT 97
[2025-07-10 04:06] VITALS: BP 137/75; PULSE 60; RESP 15; TEMP 36.7; O2SAT 97
[2025-07-10 06:47] LABS: Abs Immature Grans 0.24 10^3/uL (0.0-0.06); HCT 34.9 % (40.0-50.0); HGB 11.7 g/dL (13.5-17.5); Immature Grans % 2.9 %; MCH 30.6 pg (27.0-33.0); MCHC 33.5 % (32.0-36.0); MCV 91 fL (80-95); MPV 10.0 fL (8.0-11.0); Platelet Count 151 10^3/uL (130-400); RBC 3.82 10^6/uL (4.36-5.78); RDW 13.5 % (11.8-14.1); RDW-SD 45.5 fL; WBC 8.39 10^3/uL (4.4-10.8)
[2025-07-10 07:07] LABS: Anion Gap 10.4 mmol/L (3-11); BUN 62 mg/dL (7-18); CO2 28.6 mmol/L (21.0-32.0); Calcium 9.0 mg/dL (8.5-10.1); Chloride 97 mmol/L (98-107); Estimated GFR 18.76 (mL/min/1.73m2); Glucose 155 mg/dL (74-106); Magnesium 2.3 mg/dL (1.8-2.4); Potassium 3.8 mmol/L (3.5-5.1); Sodium 136 mmol/L (136-145)
[2025-07-10 07:43] VITALS: BP 177/80; PULSE 62; RESP 16; TEMP 35.2; O2SAT 93
[2025-07-10] MEDS: Sertraline 50 MG TAB PO (07:59)
[2025-07-10] MEDS: Gabapentin 100 MG CAP 200 MG PO ×2 (07:59→13:28)
[2025-07-10] MEDS: Lactobacillus Acidophilus CAP 1 CAP PO (07:59)
[2025-07-10] MEDS: Clopidogrel 75 MG TAB PO (08:00)
[2025-07-10] MEDS: Ezetimibe 10 MG TAB PO (08:00)
[2025-07-10] MEDS: amLODIPine 10 MG TAB PO (08:00)
[2025-07-10] MEDS: Cholecalciferol (Vitamin D3) 1,000 UNIT TAB 2000 UNITS PO (08:00)
[2025-07-10] MEDS: Apixaban 5 MG TAB PO (08:00)
[2025-07-10] MEDS: Pregabalin 25 MG CAP PO (08:00)
[2025-07-10] MEDS: Tamsulosin 0.4 MG CAPCR PO (08:00)
[2025-07-10] MEDS: Normal Saline Flush 10 ML SYR IVP (08:01)
[2025-07-10] MEDS: Patch Removal 2 EACH TP (08:01)
[2025-07-10] MEDS: Ketoconazole 2% CREAM 15 GM TUBE TP (08:02)
[2025-07-10] MEDS: Insulin Glargine 300 UNITS/3 ML PEN 40 UNITS SC (08:04)
--- NOTE | 2025-07-10 09:41 | PDOC.CMPRO ---
Date of service: 07/10/25 Time of Service: 09:41 Social Determinants of Health Screening Will the Patient Participate in the Screening?: Declined to provide
--- NOTE | 2025-07-10 10:08 | PT.INTREAT ---
PT Notes Visit Reasons: Abdominal Pain,Cholelithiasis CARYL,Hyponatremia,UTI Date: 07/10/2025 PRECAUTIONS: Fall, standard, Activity as tolerated. SUBJECTIVE: pt in recliner when approached for therapy this morning, pt reports he is looking forward to going home this afternoon, agreed to participating with therapy intervention this morning. OBJECTIVE: ? PAIN: none VITALS: closely monitored by nursing Therapeutic Activities 66525: Direct one-on-one instruction in dynamic activities to improve functional performance. ?? BED MOBILITY/TRANSFERS? Rolling L/R: independent Supine-sit: ?independnet ? Sit-supine: ? independent? Sit-stand: ? independent? Stand-sit: ??independent ? Bed-Chair:? ?independent ? Chair-bed: independent Provided skilled cues and instruction on performance and technique throughout. Gait Training 70064: Direct one-on-one instruction and skilled instruction in: Employing an assistive device Modified weight-bearing status Movement sequencing Turning and movement with proper form Provided verbal cues for equipment management and technique Provided instruction in gait pattern Patient education regarding pacing and breathing techniques to maximize activity tolerance? GAIT? Assistive Device: ??SPC ? Weight bearing: FWB Assist: ?supervision ? Distance:?? 150'x1, 200'x1 ? Deviation: Path deviation, GIBSON ? STAIRS:? ?4 steps x6 , 6 steps x4, Bilateral handrail, step over step, supervision? Therapeutic Exercises 10511: Direct one-on-one instruction in therapeutic exercises to develop strength, endurance, range of motion and flexibility. Exercises sit-stand 10x standing march 10x with CGA, no UE support static standing without UE support, SBA, 60 seconds standing unsupported with trunk rotation 10x each side standing unsupported with shoulder flexion 20x each side Standing weight shifting L/R, front back without UE support Provided skilled instruction in proper exercise performance Provided skilled manual cues to facilitate proper muscle recruitment and/or form: ASSESSMENT:?Pt tolerated activity well, pt reapproached for second session after lunch but pt was already DC'd. PLAN: Home without services. Recommend outpatient PT, which patient declines. TREATMENT CODE/TIME: 59039o2, 15mins (9:30-9:50am)
[2025-07-10 11:16] VITALS: BP 162/80; PULSE 69; RESP 17; TEMP 36.3; O2SAT 96
[2025-07-10] MEDS: Insulin Aspart 300 UNITS/3 ML PEN SC (12:12)
[2025-07-10] MEDS: Furosemide 20 MG TAB PO (12:12)
--- NOTE | 2025-07-10 12:13 | DSE_ITS ---
Date of service: 07/10/25 Time of Service: 12:14 DS: Diagnosis Discharge Diagnosis (1) Abdominal pain: Status: Acute (2) Cholelithiasis: Status: Chronic (3) (HFpEF) heart failure with preserved ejection fraction: Status: Acute (4) Acute kidney injury superimposed on chronic kidney disease: Status: Acute (5) UTI (urinary tract infection): Status: Acute (6) Hyponatremia: Status: Acute (7) Chronic back pain: (8) Atrial flutter by electrocardiogram: Status: Acute (9) BPH (benign prostatic hyperplasia): Status: Chronic (10) Hypertension: Status: Chronic (11) DM (diabetes mellitus): Discharge Plan Disposition Patient Disposition: Home Condition: Improving Discharge Details Reason For Visit: Abdominal Pain,Cholelithiasis CARYL,Hyponatremia,UTI Admit Date/Time: 07/06/25 22:47 Admit Provider: Chauncey Gil Attending Provider: Chauncey Gil Primary Care Provider: Jarrod Schultz Hospital Course Hospital Course: This is a 70-year-old male patient who has a history of TIA/ stroke, CABG x 3 in 2017, urinary baldder outlet obstruction, HFpEF on lasix, diabetic foot ulcer and toe amputation , diabetes with recent increase in his dosing of his GLP-1 agonist presenting with 5-day history of poor intake with abdominal pain , nausea and vomiting and now being slightly dizzy with confusion. CT of the abdomen was positive for gallstones w/o biliary duct dilation and negative for acute appendicitis or diverticulitis; enlarged prostate gland and urinary bladder wall thickening pinting to chronic cystitis noted.. Workup was positive for found to have leukocytosis , positive UA with probable UTI. . The patient felt slightly better with IV fluid resuscitation but his BNP was markedly elevated from his baseline w/o obvious signs and symptoms of HFpEF exacerbation. Initally elevated tropinin in the ED trending down on repeat. Patient was be admitted for CARYL and rehydration and UTI treatment. IV crystalloids treatment and renally dose levofloxacin received during stay with clinical imrpovement and creatinine trending towards baseline. DOAC intiated for atrial -fibrillation treatment as per sherbo decision making with patient based on [id number] > 7/9 ( 11.2%) and HAS-BLED 4 points ( 8.70%) with recommendation for outpatient cardiology referral as per PCP. Flomax also initiated with no further LUST symptoms and the patient was able to void after indwelling urinary catheter removal. Home medicine regimen for chronic condition adjusted to renal function and CrCl; furosemide restarted at a lower dose and further adjustments to be made by outpatient provider. Echocardiogram conclusion: Normal left ventricular wall thickness and chamber size. Ejection fraction is 50%. No segmental wall motion abnormalities are noted. Patient is in atrial fibrillation with [id number] variation Right ventricle is not well-visualized but does not appear significantly enlarged Mildly dilated left atrium. Normal right atrial size Aortic valve is sclerotic without stenosis or regurgitation Thickened mitral leaflets, mitral annular calcification, trace mitral regurgitation Mild tricuspid regurgitation with an estimated right ventricular systolic pressure of 35 mmHg Ascending aorta measures 3.[address] Chapin Recommendations for Follow Up Recommended tests to be ordered by follow up provider: Follow- up on BMP, hold off GLP-1 until seen by PCP Home Meds and New Rx's Prescriptions: New levofloxacin 500 mg tablet 500 mg PO Q48H Qty: 3 0RF Rx Instructions: Take first pill on 07/10/25 at 8 PM , then on 07/12/25 and 07/14/25 Bio-K plus 50 billion cell capsule,delayed release(DR/EC) 1 cap PO DAILY Qty: 7 0RF pregabalin 25 mg Capsule 25 mg PO BID Qty: 30 0RF rivaroxaban 15 mg tablet 15 mg PO QPM Qty: 30 0RF Rx Instructions: must administer with evening meal furosemide [Lasix] 20 mg tablet 20 mg PO DAILY Qty: 14 0RF Continued ezetimibe 10 mg tablet 10 mg PO DAILY Patient Comments: TAKE ONE TABLET BY MOUTH EVERY DAY (DME) diabetic shoes See Rx Instructions .Route .MEDSUPPLY Qty: 2 0RF Rx Instructions: As directed clopidogrel 75 mg tablet 75 mg PO DAILY Qty: 90 3RF insulin glargine [Basaglar KwikPen U-100 Insulin] 100 unit/mL (3 mL) insulin pen 40 unit subcut BID Qty: 90 3RF fluticasone propionate [Flonase Allergy Relief] 50 mcg/actuation spray,suspension 1 spray intranasal DAILY PRN (Reason: nasal congestion) Qty: 16 3RF Rx Instructions: administer into each nostril amlodipine 10 mg tablet 10 mg PO DAILY Qty: 90 3RF gabapentin 100 mg capsule 200 mg PO TID Qty: 180 5RF nitroglycerin 0.4 mg tablet, sublingual 0.4 mg SL Q5-15M PRN (Reason: chest pain) Qty: 25 0RF sertraline 50 mg tablet 50 mg PO DAILY Qty: 90 3RF cholecalciferol (vitamin D3) 50 mcg (2,000 unit) capsule 50 mcg PO DAILY (DME) FreeStyle Alfredo 2 Sensor Kit See Rx Instructions .ROUTE .MEDSUPPLY Qty: 2 6RF Rx Instructions: As directed carvedilol 6.25 mg tablet 3.125 mg PO DAILY Qty: 90 3RF Rx Instructions: must administer with a meal/food (DME) BD Insulin Syringe 1 EACH syringe 1 ea Sub-Q QID Qty: 3 Rx Instructions: B/D INSULIN ULTRA-FINE 30GX0.3/ (DME) Aerochamber Plus Flow-Vu 1 EACH spacer 1 ea Miscellaneous PRN Qty: 1 0RF ([facility]) blood-glucose meter [FreeStyle Lite Meter] 1 EACH kit 1 ea Miscellaneous TID Qty: 1 0RF (DME) FreeStyle Lite Strips Strip 1 ea Miscellaneous QID Qty: 400 6RF Rx Instructions: 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 E11.42 (DME) FreeStyle Alfredo 2 [place] Misc See Rx Instructions .ROUTE .MEDSUPPLY Qty: 1 0RF Rx Instructions: As directed (DME) BD Regular Bevel [employer] 21 gauge x 1 1/2 needle 1 ea Miscellaneous QID Qty: 100 6RF Rx Instructions: BD U100 29g 1/2 with safety lock insulin syringes Dx E11.49 ferrous sulfate 325 mg (65 mg iron) tablet 325 mg PO DAILY Qty: 90 3RF Lactobacillus acidophilus Capsule 10 mg PO DAILY (DME) pen needle, diabetic [BD Ultra-Fine Short Pen Needle] 31 gauge x 5/16 needle See Rx Instructions .ROUTE .COMPLEX Qty: 100 4RF Dose Instruction: CHECK BLOOD SUGAR FOUR TIMES A DAY Rx Instructions: CHECK BLOOD SUGAR FOUR TIMES A DAY acetaminophen 325 mg tablet 650 mg PO Q6H PRN rosuvastatin 40 mg tablet See Rx Instructions .ROUTE .COMPLEX Qty: 90 3RF Dose Instruction: TAKE ONE TABLET BY MOUTH EVERY DAY AT BEDTIME Rx Instructions: TAKE ONE TABLET BY MOUTH EVERY DAY AT BEDTIME triamcinolone acetonide 0.5 % ointment 1 applic Topical BID PRN (Reason: dermatitis) Qty: 15 3RF ketoconazole 2 % cream 1 applic topical DAILY Qty: 120 6RF Rx Instructions: Apply to 1g to skin and toenails once daily Humulin R U-500 (Conc) Kwikpen 500 unit/mL (3 mL) insulin pen 90 unit subcut QACBREAK Qty: 47 3RF hydrocodone-acetaminophen 7.5-325 mg tablet 1 tab PO BID MDD 2 tabs PRN (Reason: back pain) Qty: 56 0RF ondansetron 8 mg tablet,disintegrating 8 mg PO Q8H PRN (Reason: nausea and vomiting) Qty: 20 0RF Held allopurinol 300 mg tablet 300 mg PO DAILY Hold Instructions: Resume on 07/25/25. Discuss with PCP Patient Comments: TAKE ONE TABLET BY MOUTH EVERY DAY allopurinol 100 mg tablet 100 mg PO DAILY Qty: 90 3RF Hold Instructions: Resume on 07/17/25. discuss with PCP furosemide 40 mg tablet 40 mg PO DAILY Qty: 90 3RF Hold Instructions: Resume on 07/24/25. Discuss with PCP as per renal function labs losartan 25 mg tablet 25 mg PO DAILY Qty: 90 3RF Hold Instructions: Resume on 07/24/25. Resume as per PCP pregabalin 200 mg capsule 150 mg PO BID Hold Instructions: Resume on 07/24/25. dose adjusted to CrCl resume as per PCP Mounjaro 5 mg/0.5 mL pen injector 5 mg subcut QWEEK Hold Instructions: Resume on 07/24/25. Discuss with PCP before taking dapagliflozin propanediol 10 mg tablet 10 mg PO DAILY Qty: 90 3RF Hold Instructions: Resume on 07/24/25. Discuss with PCP Discontinued alteplase 2 mg recon soln 2 mg intra-catheter ONCE PRN Rx Instructions: into each catheter lumen Discharge Instructions Referrals: Jarrod Schultz NP [Primary Care Provider, Medicine] Referral Note: Follow-up within 7 days of discharge Activity:: Activity as Tolerated Equipment/Supplies:: cane Diet:: diabetic heart healthy Discharge Orders Other Ambulatory Orders: Basic Metabolic Panel (Routine) Timeframe: 20250717 Facility: [facility] - Location: Laboratory Outpatient - [facility] Ordered By: Pinky Kilpatrick DS: Summary Time Spent with Patient providing and/or coordinating discharge services: Greater than 30 minutes Status at Discharge Functional status at discharge: independent ambulation Overall status at discharge: patient is progressing back to baseline Mental Status: mental status grossly normal Speech and Movement: speech and movement normal Mood: congruent mood Affect: normal affect Exam Narrative Exam Narrative: m 70 yeaars old male patient without acute distress nonicteric noninjected sclera, moist oral mucosa , no JDV , heart irregular s1, S2 - atrial fibrillation with MVR on telemetry, respirations even and unlabored , clear lungs to auscultation, abdomen round large, non-distended nontender, soft, No CVA tenderness , moves all extremities equally , RASS : 0 , congruent mood and affect Psych Mental Status: mental status grossly normal Speech and Movement: speech and movement normal Mood: congruent mood Affect: normal affect DS: Data Vitals/I&O Vitals and I&O: Vital Signs Temperature 36.3 C L 07/10/25 11:16 Temperature Source Temporal Artery Scan 07/10/25 11:16 Pulse 69 07/10/25 11:16 Pulse Rhythm Irregular 07/07/25 00:53 Pulse 73 07/06/25 23:30 Respiratory Rate 17 07/10/25 11:16 Respiratory Effort Normal 07/07/25 00:53 Respiratory Depth Normal 07/07/25 00:53 Respiratory Pattern Normal 07/07/25 00:53 Blood Pressure 162/80 H 07/10/25 11:16 Blood Pressure Mean 107 07/10/25 11:16 Blood Pressure Position Sitting 07/06/25 16:59 Pulse Oximetry 96 07/10/25 11:16 Oxygen Delivery Method Room Air 07/10/25 11:16 Oxygen Flow Rate 0 07/10/25 11:16 Pain Level 7 07/10/25 11:16 Comment Refused requested to sleep. 07/09/25 03:15 Intake & Output 07/09/25 07/10/25 07/10/25 23:59 11:59 23:59 Intake Total 770 / 2713.75 2230 / 2230 Output Total 1500 / 5900 Balance -730 / -3186.25 2230 / 2230 Weight 114 kg Intake: IV 1552.75 1010 / 1010 Oral 760 / 1160 1220 / 1220 Output: Urine 1500 / 5900 Other: Urine Color Light Abigail Urine Appearance Clear Urine Odor Normal Comment unmeasured Stool Size Moderate Stool Characteristics Soft Soft Data Completed and Pending Labs on day of discharge: Labs from last 24 hours 07/10/25 07/09/25 07/09/25 06:10 Unknown 20:05 WBC 8.39 RBC 3.82 L Hgb 11.7 L Hct 34.9 L MCV 91 MCH 30.6 MCHC 33.5 RDW 13.5 Plt Count 151 MPV 10.0 Immature Gran % 2.9 Neutrophils % 70.6 Lymphocytes % 11.8 Monocytes % 11.1 Eosinophils % 3.1 Basophils % 0.5 Nucleated RBC % 0.0 Absolute Neutrophils 5.93 Absolute Lymphocytes 0.99 L Absolute Monocytes 0.93 H Absolute Eosinophils 0.26 Absolute Basophils 0.04 Sodium 136 Potassium 3.8 Chloride 97 L Carbon Dioxide 28.6 Anion Gap 10.4 BUN 62 H Creatinine 3.4 H Est GFR (CKD-EPI 2020) 18.76 Glucose 155 H Calcium 9.0 Magnesium 2.3 Urine Color Yellow Urine Clarity Sl Cloudy Urine pH 6.0 Ur Specific [place] 1.010 Urine Protein 100 H Urine Ketones Negative Urine Blood Large H Urine Nitrite Negative Urine Bilirubin Negative Urine Urobilinogen 1.0 H Ur Leukocyte Esterase Trace H Urine RBC 20-50 H Urine WBC 10-20 H Ur Epithelial Cells Rare Urine Crystals Negative Urine Bacteria Few Urine Casts Negative Urine Mucus Negative Ur Culture Indicated? Yes Urine Glucose 500 H Add-On Test Request Cancelled 07/09/25 20:05 Urine - Reflex from Ua Urine Culture - Pending Preliminary micro results at discharge 07/06/25 21:53 Blood Blood Culture - Preliminary NO GROWTH 72 HOURS 07/06/25 21:43 Blood Blood Culture - Preliminary NO GROWTH 72 HOURS 07/09/25 20:05 Urine - Reflex from Ua Urine Culture - Pending [facility] All Active Problems (Updated 07/10/25 @ 12:17 by Pinky Kilpatrick APRN) (HFpEF) heart failure with preserved ejection fraction (Acute) Atrial flutter by electrocardiogram (Acute) Abdominal pain (Acute) Cholelithiasis (Chronic) UTI (urinary tract infection) (Acute) Acute kidney injury superimposed on chronic kidney disease (Acute) Hyponatremia (Acute) Atrial flutter (Acute) Rash (Acute) MSSA (methicillin susceptible Staphylococcus aureus) infection (Acute ~06/16/24) RT foot s/p amputation Amputation of toe of right foot (Acute ~06/13/24) [facility]- 2nd toe History of transmetatarsal amputation of right foot (Acute ~06/16/24) [facility]- open, completion transmetatarsal amputation of right forefoot (digits 3,4,5) Bilateral lower extremity edema (Acute) Hearing loss (Acute) Gangrene of toe of right foot (Acute) Ischemic ulcer of right foot with fat layer exposed (Acute) Osteomyelitis of right foot (Acute) Diabetes mellitus with foot ulcer due to multiple causes (Acute) Gallstones without obstruction of gallbladder (Acute) BPH (benign prostatic hyperplasia) (Chronic) History of smoking at least 1 pack per day for at least 30 years (Acute) Gouty tophi of hand (Acute) Chronic gouty arthropathy with tophi (Acute) Hyperkalemia (Acute 07/26/14) Hypertension (Chronic) Diabetic peripheral angiopathy (Chronic) Diabetic peripheral neuropathy (Chronic) Chronic pain syndrome (Chronic) low back pain, drug contract at [facility]-V PMS and drug screen on 08/1221-patient on chronic hydrocodone Coronary artery disease involving [place] coronary artery of [place] heart with unstable angina pectoris (Chronic 08/30/17) 08-24-2017 [facility] cardiac CATH: 3 vessel disease (LAD,LCx and RCA): coronary bypass sx pending Dyspnea on exertion (Chronic 12/16/13) negative nuclear stress test echocardiogram: normal/ EF 65%/no valvulopathy Cardiol.eval. : not ischemia related ([facility]) Hyperlipidemia (Chronic) Peripheral autonomic neuropathy in disorders classified elsewhere (Chronic 09/15/14) Right heart failure (Acute) Cellulitis of foot, right (Acute) Hand arthritis (Acute) Chronic kidney disease (CKD) (Chronic) 08/2021- Cr 1.7 Diabetes mellitus type 2, insulin dependent (Acute) with nephropathy Obesity (Chronic) Gout (Chronic) 08/2021-diagnosed by rheumatology at [facility]-probable gout tophi of hands Edema (Acute) Diabetic retinopathy (Acute ~12/2021) B/L MODERATE-01/17 Leg wound, left (Acute) Diabetic foot infection (Acute) Cellulitis (Acute) Chronic foot ulcer (Acute) Nail dystrophy (Acute) Peripheral arterial disease (Acute) Acute Lyme disease (Acute) Elevated troponin (Acute) Erythema migrans (Lyme disease) (Acute) Gram-positive cocci bacteremia (Acute) Acute kidney injury superimposed on chronic kidney disease (Acute) Staphylococcus aureus bacteremia (Acute) Gouty arthritis of hand (Acute) Chronic acquired lymphedema (Acute) Bilateral lower extremities Chronic venous stasis dermatitis (Acute) Bilateral lower extremities Chronic venous insufficiency of lower extremity (Acute) Bilateral lower extremities Diabetic ulcer of toe of left foot (Acute) Diabetic ulcer of right foot associated with diabetes mellitus due to underlying condition (Acute) Obesity, morbid, BMI 40.0-49.9 (Acute) Lightheadedness (Acute) Weakness (Acute) Ulcer of left foot with bone involvement without evidence of necrosis (Acute) Hyponatremia (Acute) Chronic ulcer of left foot (Acute) Pancytopenia (Acute) Iron deficiency anemia (Acute) Medical History (Updated 07/10/25 @ 12:17 by Pinky Kilpatrick APRN) Palliative care encounter Toe osteomyelitis, right s/p amputation. Pseudomonas osteomyelitis 6wk IV Ceftazidime per ID DH Amputation of toe Congestive heart failure TIA (transient ischemic attack) Proliferative diabetic retinopathy of both eyes without macular edema associated with diabetes mellitus due to underlying condition (01/18/18) 01/18/18-[facility] 01/31/19-[facility] Stroke (~2008) Obesity DM (diabetes mellitus) Laceration of lower leg with foreign body Diabetic foot ulcer Lymphedema Scrotal hematoma (07/26/14) A. S/p hydrocelectomy 07/24/14 Surgical History 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 secondary to diabetic ulcer, angiopathy S/P femoral-popliteal bypass surgery right. 03/2020 History of cataract removal with insertion of prosthetic lens History of hydrocelectomy (07/24/14) right S/P CABG x 3 (08/30/17) [facility] [place] 08-29-2017 : no fup needed H/O surgical procedure A. Hydrocelectomy 07/24/2014 Family History Mother No problems noted. Father Diabetes Myocardial infarction Heart disease Sister Diabetes Social History Smoking/Tobacco Use Status: Former Tobacco Use Quit Date: 09/28/83 Tobacco: How many years used: 5 Smoking risk assessment performed?: Yes Alcohol Intake: current Alcohol Intake frequency: holidays/special occasions only Drug use: Occasionally Substance use type: marijuana Housing: house Pets and animals: Yes Pets and animals: cat(s) and dog(s) What type of physical activity do you participate in: none Do you feel safe at home: Yes Do you feel safe in your relationship?: Yes Time Spent with Patient Time Spent with Patient: >85 minutes Time was spent: preparing to see the patient(eg.review tests), obtaining and/or reviewing separately otained hiistory, ordering medications,tests, procedures, referring, communicating with other health md do resident urgent care, indepentently interpreting results, counseling the patient, care coordination and other
--- NOTE | 2025-07-10 12:16 | PDOC.CMDIS ---
Date of service: 07/10/25 Time of Service: 12:17 LACE Index Scoring Tool Questions: Length of Stay (in days): 4 - 6 Was the patient admitted via the E.D.?: Yes Comorbidities: Cerebrovascular Disease (Stroke 2008), Diabetes w/o Complication and Liver or Renal Disease E.D. Visits: 1 Answers: Total Score: 13 Risk of Readmission: High Risk Care Management Discharge Plan Reason for Hospitalization: Abdominal pain, Afib Discharge Plan: Bereket is discharged home via private vehicle with family. RX for Xarelto was transmitted to [facility] and is covered by his insurance (Eliquis was >$500.) Bereket will follow up with community providers and continue per his discharge plan of care as directed. No new services are indicated at the time of his discharge. Patient/Family Education Needs: Review discharge instructions and plan for outpatient follow-up. Discuss ask me three.+
== END 2025-07-10 14:42 | disposition home or self-care (01) | DRG 445 ==
LOC: ER 23:10 → MS 07-07 00:06
PROVIDERS: Admitting Provider Family Medicine; Emergency Provider Registered Nurse Emergency; PCP Nurse Practitioner Family; Responsible Provider Nurse Practitioner Acute Care; Visit Provider Family Medicine
DX: K80.20 Calculus of gallbladder without cholecystitis without obstruction (principal); N17.9 Acute kidney failure, unspecified; N18.9 Chronic kidney disease, unspecified; R10.84 Generalized abdominal pain; E87.1 Hypo-osmolality and hyponatremia; I50.30 Unspecified diastolic (congestive) heart failure; G89.4 Chronic pain syndrome; M54.50 Low back pain, unspecified; I48.92 Unspecified atrial flutter; I13.0 Hypertensive heart and chronic kidney disease with heart failure and stage 1 through stage 4 chronic kidney disease, or unspecified chronic kidney disease; Z79.4 Long term (current) use of insulin; N39.0 Urinary tract infection, site not specified; L97.828 Non-pressure chronic ulcer of other part of left lower leg with other specified severity; L97.818 Non-pressure chronic ulcer of other part of right lower leg with other specified severity; R74.8 Abnormal levels of other serum enzymes; Z89.431 Acquired absence of right foot; N40.0 Benign prostatic hyperplasia without lower urinary tract symptoms; M1A.9XX1 Chronic gout, unspecified, with tophus (tophi); E11.42 Type 2 diabetes mellitus with diabetic polyneuropathy; E11.51 Type 2 diabetes mellitus with diabetic peripheral angiopathy without gangrene; I25.10 Atherosclerotic heart disease of native coronary artery without angina pectoris; Z95.1 Presence of aortocoronary bypass graft; E78.5 Hyperlipidemia, unspecified; E11.22 Type 2 diabetes mellitus with diabetic chronic kidney disease; E11.319 Type 2 diabetes mellitus with unspecified diabetic retinopathy without macular edema; I89.0 Lymphedema, not elsewhere classified; I87.2 Venous insufficiency (chronic) (peripheral); E66.01 Morbid (severe) obesity due to excess calories; D50.9 Iron deficiency anemia, unspecified; Z86.73 Personal history of transient ischemic attack (TIA), and cerebral infarction without residual deficits; Z87.891 Personal history of nicotine dependence; Z68.36 Body mass index [BMI] 36.0-36.9, adult; Z79.85 Long-term (current) use of injectable non-insulin antidiabetic drugs; Z79.02 Long term (current) use of antithrombotics/antiplatelets; Z79.891 Long term (current) use of opiate analgesic; F12.90 Cannabis use, unspecified, uncomplicated; R41.0 Disorientation, unspecified; N32.0 Bladder-neck obstruction; Z89.422 Acquired absence of other left toe(s); E11.622 Type 2 diabetes mellitus with other skin ulcer; I08.2 Rheumatic disorders of both aortic and tricuspid valves; I48.91 Unspecified atrial fibrillation; R11.2 Nausea with vomiting, unspecified; B96.20 Unspecified Escherichia coli [E. coli] as the cause of diseases classified elsewhere
CPT/HCPCS: 00123; 36415; 51702; 80048; 80053; 80307; 83690; 85027; 87040; 87077; 87637; 93005; 93306; 96361; 96365; 97110; 97161; 97530; 99285; 71046; 74176; 76705; 81003; 81015; 83735; 83880; 84484; 84550; 85025; 85610; 87086; 87186; 93010; 99223; 99232; 99233; 99239; J0780; J1644; J1815; J1956; J2405; J3490

== ENCOUNTER 2025-07-06 18:22 | Outpatient (REF) | payer MEDICARE, SELFPAY ==
[2025-07-06 20:37] LABS: Glucose 500 mg/dL (Negative)
[2025-07-06 20:55] LABS: WBC >50 HPF (0-5)
== END 2025-07-06 18:23 | disposition home or self-care (01) ==
LOC: LBN 18:22
PROVIDERS: PCP Nurse Practitioner Family; Visit Provider Nurse Practitioner Family
DX: R39.15 Urgency of urination (principal)
CPT/HCPCS: 81003; 81015; 87086